=== PATIENT | female | born 1945 | race Caucasian/White ===

== ENCOUNTER 2022-10-22 07:23 | Outpatient (OUT) | payer MEDICARE, OTHER, SELFPAY ==
[2022-10-22 08:04] LABS: INR 2.42; Prothrombin Time 24.4 sec (9.0-11.6)
== END 2022-10-22 07:24 ==
LOC: LAB 07:31
PROVIDERS: PCP Family Medicine; Visit Provider Internal Medicine Cardiovascular Disease
DX: R00.2 Palpitations (principal); Z79.01 Long term (current) use of anticoagulants
CPT/HCPCS: 36415; 85610

== ENCOUNTER 2022-11-13 07:04 | Outpatient (OUT) | payer MEDICARE, OTHER, SELFPAY ==
[2022-11-13 07:34] LABS: Prothrombin Time 26.1 sec (9.0-11.6)
== END 2022-11-13 07:05 | disposition home or self-care (01) ==
LOC: LAB 07:07
PROVIDERS: PCP Family Medicine; Visit Provider Internal Medicine Cardiovascular Disease
DX: I48.20 Chronic atrial fibrillation, unspecified (principal)
CPT/HCPCS: 36415; 85610

== ENCOUNTER 2022-12-08 07:26 | Outpatient (OUT) | payer MEDICARE, OTHER, SELFPAY ==
[2022-12-08 09:08] LABS: INR 1.97; Prothrombin Time 20.1 sec (9.0-11.6)
== END 2022-12-08 07:27 | disposition home or self-care (01) ==
LOC: LAB 07:27
PROVIDERS: PCP Family Medicine; Visit Provider Internal Medicine Cardiovascular Disease
DX: I48.20 Chronic atrial fibrillation, unspecified (principal)
CPT/HCPCS: 36415; 85610

== ENCOUNTER 2023-01-06 07:16 | Outpatient (OUT) | payer MEDICARE, OTHER, SELFPAY ==
[2023-01-06 08:14] LABS: INR 2.31; Prothrombin Time 23.4 sec (9.0-11.6)
== END 2023-01-06 07:17 | disposition home or self-care (01) ==
LOC: LAB 07:18
PROVIDERS: PCP Family Medicine; Visit Provider Internal Medicine Cardiovascular Disease
DX: I48.20 Chronic atrial fibrillation, unspecified (principal)
CPT/HCPCS: 36415; 85610

== ENCOUNTER 2023-01-27 07:51 | Outpatient (OUT) | payer MEDICARE, OTHER, SELFPAY ==
[2023-01-27 08:33] LABS: INR 2.88; Prothrombin Time 28.8 sec (9.0-11.6)
== END 2023-01-27 07:52 | disposition home or self-care (01) ==
LOC: LAB 07:53
PROVIDERS: PCP Family Medicine
DX: I48.20 Chronic atrial fibrillation, unspecified (principal)
CPT/HCPCS: 36415; 85610

== ENCOUNTER 2023-02-25 12:09 | Outpatient (RCR) | payer MEDICARE, OTHER, SELFPAY | END 2023-03-10 17:32 | disposition home or self-care (01) | LOC: MM 12:09 | PROVIDERS: PCP Family Medicine; Visit Provider Internal Medicine | DX: Z51.81 Encounter for therapeutic drug level monitoring (principal); Z79.01 Long term (current) use of anticoagulants; I48.20 Chronic atrial fibrillation, unspecified | CPT/HCPCS: 85610; G0463 ==

== ENCOUNTER 2023-03-11 00:28 | Outpatient (RCR) | payer MEDICARE, OTHER, SELFPAY | END 2023-04-09 16:44 | disposition home or self-care (01) | LOC: MM 00:28 | PROVIDERS: PCP Family Medicine; Visit Provider Internal Medicine | DX: Z51.81 Encounter for therapeutic drug level monitoring (principal); Z79.01 Long term (current) use of anticoagulants; I48.20 Chronic atrial fibrillation, unspecified | CPT/HCPCS: 85610; G0463 ==

== ENCOUNTER 2023-04-10 09:30 | Outpatient (RCR) | payer MEDICARE, OTHER, SELFPAY | END 2023-05-08 15:11 | disposition home or self-care (01) | LOC: MM 09:30 | PROVIDERS: PCP Family Medicine; Visit Provider Internal Medicine | DX: Z51.81 Encounter for therapeutic drug level monitoring (principal); Z79.01 Long term (current) use of anticoagulants; I48.20 Chronic atrial fibrillation, unspecified | CPT/HCPCS: 85610; G0463 ==

== ENCOUNTER 2023-05-11 02:10 | Outpatient (RCR) | payer MEDICARE, OTHER, SELFPAY | END 2023-06-10 17:18 | disposition home or self-care (01) | LOC: MM 02:10 | PROVIDERS: PCP Family Medicine; Visit Provider Internal Medicine | DX: Z51.81 Encounter for therapeutic drug level monitoring (principal); Z79.01 Long term (current) use of anticoagulants; I48.20 Chronic atrial fibrillation, unspecified | CPT/HCPCS: 85610; G0463 ==

== ENCOUNTER 2023-06-11 01:58 | Outpatient (RCR) | payer MEDICARE, OTHER, SELFPAY | END 2023-07-09 17:34 | disposition home or self-care (01) | LOC: MM 01:58 | PROVIDERS: PCP Family Medicine; Visit Provider Internal Medicine | DX: Z51.81 Encounter for therapeutic drug level monitoring (principal); Z79.01 Long term (current) use of anticoagulants; I48.20 Chronic atrial fibrillation, unspecified | CPT/HCPCS: 85610; G0463 ==

== ENCOUNTER 2023-07-10 03:42 | Outpatient (RCR) | payer MEDICARE, OTHER, SELFPAY | END 2023-08-07 14:17 | disposition home or self-care (01) | LOC: MM 03:42 | PROVIDERS: PCP Family Medicine; Visit Provider Internal Medicine | DX: Z51.81 Encounter for therapeutic drug level monitoring (principal); Z79.01 Long term (current) use of anticoagulants; I48.20 Chronic atrial fibrillation, unspecified | CPT/HCPCS: 85610; G0463 ==

== ENCOUNTER 2023-08-10 03:25 | Outpatient (RCR) | payer MEDICARE, OTHER, SELFPAY | END 2023-09-08 18:15 | disposition home or self-care (01) | LOC: MM 03:25 | PROVIDERS: PCP Family Medicine; Visit Provider Internal Medicine | DX: Z51.81 Encounter for therapeutic drug level monitoring (principal); Z79.01 Long term (current) use of anticoagulants; I48.20 Chronic atrial fibrillation, unspecified | CPT/HCPCS: 85610; G0463 ==

== ENCOUNTER 2023-09-09 04:43 | Outpatient (RCR) | payer MEDICARE, OTHER, SELFPAY | END 2023-10-09 12:07 | disposition home or self-care (01) | LOC: MM 04:43 | PROVIDERS: PCP Family Medicine; Visit Provider Internal Medicine | DX: Z51.81 Encounter for therapeutic drug level monitoring (principal); Z79.01 Long term (current) use of anticoagulants; I48.20 Chronic atrial fibrillation, unspecified | CPT/HCPCS: 85610; G0463 ==

== ENCOUNTER 2023-10-12 03:36 | Outpatient (RCR) | payer MEDICARE, OTHER, SELFPAY | END 2023-11-06 11:12 | disposition home or self-care (01) | LOC: MM 03:36 | PROVIDERS: PCP Family Medicine; Visit Provider Internal Medicine | DX: Z51.81 Encounter for therapeutic drug level monitoring (principal); Z79.01 Long term (current) use of anticoagulants; I48.20 Chronic atrial fibrillation, unspecified | CPT/HCPCS: 85610; G0463 ==

== ENCOUNTER 2023-11-09 00:28 | Outpatient (RCR) | payer MEDICARE, OTHER, SELFPAY | END 2023-12-09 23:59 | disposition home or self-care (01) | LOC: MM 00:28 | PROVIDERS: PCP Family Medicine; Visit Provider Internal Medicine | DX: Z51.81 Encounter for therapeutic drug level monitoring (principal); Z79.01 Long term (current) use of anticoagulants; I48.20 Chronic atrial fibrillation, unspecified | CPT/HCPCS: 85610; G0463 ==

== ENCOUNTER 2023-12-24 12:31 | Outpatient (RCR) | payer MEDICARE, OTHER, SELFPAY | END 2024-01-08 10:07 | disposition home or self-care (01) | LOC: MM 12:31 | PROVIDERS: PCP Family Medicine; Visit Provider Internal Medicine | DX: Z51.81 Encounter for therapeutic drug level monitoring (principal); Z79.01 Long term (current) use of anticoagulants; I48.20 Chronic atrial fibrillation, unspecified | CPT/HCPCS: 85610; G0463 ==

== ENCOUNTER 2024-01-11 01:39 | Outpatient (RCR) | payer MEDICARE, OTHER, SELFPAY | END 2024-02-08 23:42 | disposition home or self-care (01) | LOC: MM 01:39 | PROVIDERS: PCP Family Medicine; Visit Provider Internal Medicine | DX: Z51.81 Encounter for therapeutic drug level monitoring (principal); Z79.01 Long term (current) use of anticoagulants; I48.20 Chronic atrial fibrillation, unspecified | CPT/HCPCS: 85610; G0463 ==

== ENCOUNTER 2024-02-09 02:40 | Outpatient (RCR) | payer MEDICARE, OTHER, SELFPAY | END 2024-03-10 23:40 | disposition home or self-care (01) | LOC: MM 02:40 | PROVIDERS: PCP Family Medicine; Visit Provider Internal Medicine | DX: Z51.81 Encounter for therapeutic drug level monitoring (principal); Z79.01 Long term (current) use of anticoagulants; I48.20 Chronic atrial fibrillation, unspecified | CPT/HCPCS: 85610; G0463 ==

== ENCOUNTER 2024-03-11 13:10 | Outpatient (RCR) | payer MEDICARE, OTHER, SELFPAY | END 2024-04-09 23:59 | disposition home or self-care (01) | LOC: MM 13:10 | PROVIDERS: PCP Family Medicine; Visit Provider Internal Medicine | DX: Z51.81 Encounter for therapeutic drug level monitoring (principal); Z79.01 Long term (current) use of anticoagulants; I48.20 Chronic atrial fibrillation, unspecified | CPT/HCPCS: 85610; G0463 ==

== ENCOUNTER 2024-04-11 05:52 | Outpatient (RCR) | payer MEDICARE, OTHER, SELFPAY | END 2024-05-10 09:16 | disposition home or self-care (01) | LOC: MM 05:52 | PROVIDERS: PCP Family Medicine; Visit Provider Internal Medicine | DX: Z51.81 Encounter for therapeutic drug level monitoring (principal); Z79.01 Long term (current) use of anticoagulants; I48.20 Chronic atrial fibrillation, unspecified | CPT/HCPCS: 85610; G0463 ==

== ENCOUNTER 2024-04-25 07:41 | Outpatient (OUT) | payer MEDICARE, OTHER, SELFPAY ==
--- OUTSIDE RECORDS SUMMARY | 2024-04-25 07:48 | XMS_ITS | CCD ---
Author Organization [facility] Care Team Providers Care Reference Data Expert Name Role Phone SUKHWINDERNKARSON P Attending Unavailable JOHNSON, FELIPE Primary Care Unavailable MCGUINN, KARSON P Attending Unavailable JOHNSON, FELIPE Primary Care Unavailable MCGUINN, KARSON P Attending Unavailable JOHNSON, FELIPE Primary Care Unavailable MCGUINN, KARSON P Attending Unavailable JOHNSON, FELIPE Primary Care Unavailable MCGUINN, KARSON P Attending Unavailable JOHNSON, FELIPE Primary Care Unavailable MCGUINN, KARSON P Attending Unavailable JOHNSON, FELIPE Primary Care Unavailable MCGUINN, KARSON P Attending Unavailable JOHNSON, FELIPE Primary Care Unavailable MCGUINN, KARSON P Attending Unavailable JOHNSON, FELIPE Primary Care Unavailable MCGUINN, KARSON P Attending Unavailable JOHNSON, FELIPE Primary Care Unavailable MCGUINN, KARSON P Attending Unavailable JOHNSON, FELIPE Primary Care Unavailable MCGUINN, KARSON P Attending Unavailable JOHNSON, FELIPE Primary Care Unavailable MCGUINN, KARSON P Attending Unavailable JOHNSON, FELIPE Primary Care Unavailable MCGUINN, KARSON P Attending Unavailable JOHNSON, FELIPE Primary Care Unavailable MCGUINN, KARSON P Attending Unavailable JOHNSON, FELIPE Primary Care Unavailable MCGUINN, KARSON P Attending Unavailable JOHNSON, FELIPE Primary Care Unavailable Yan, Felipe E Unavailable Unavailable Unavailable Karson Watts II Referring Unavailable GIOVANNIuinKarson flores II Attending Unavailable Yan, Dr. Felipe Jessica Primary Care Unav ailable Yan, Dr. Felipe Jessica Primary Care Unav ailable Karson Watts II Referring Unavailable Karson Watts II Attending Unavailable YOEL, DR LIZAMA Admitting Unavailable MCGUINBonifacio, DR LIZAMA Consulting Unavailable JOHNSON, DR FELIPE Myers Primary Care Unavailable MCGUINN, DR LIZAMA Attending Unavailable JOHNSON, DR FELIPE Myers Primary Care Unavailable MISC, DR GERMAIN Consulting Unavailable MISC, DR GERMAIN Attending Unavailable MISC, DR GERMAIN Admitting Unavailable JOHNSON, DR FELIPE Myers Primary Care Unavailable JOHNSON, DR FELIPE Myers Consulting Unavailable JOHNSON, DR FELIPE Myers Attending Unavailable JOHNSON, DR FELIPE Myers Admitting Unavailable MCGUINN, DR LIZAMA Admitting Unavailable MCGUINN, DR LIZAMA Consulting Unavailable JOHNSON, DR FELIPE Myers Primary Care Unavailable MCGUINN, DR LIZAMA Attending Unavailable MCGUINN, DR LIZAMA Consulting Unavailable JOHNSON, DR FELIPE Myers Primary Care Unavailable MISC, DR GERMAIN Admitting Unavailable MISC, DR GERMAIN Attending Unavailable MCGUINN, DR LIZAMA Consulting Unavailable MCGUINN, DR LIZAMA Admitting Unavailable MCGUINN, DR LIZAMA Attending Unavailable JOHNSON, DR FELIPE Myers Primary Care Unavailable MCGUINN, DR LIZAMA Admitting Unavailable JOHNSON, DR FELIPE Myers Primary Care Unavailable MCGUINN, DR LIZAMA Attending Unavailable MCGUINN, DR LIZAMA Consulting Unavailable JOHNSON, DR FELIPE Myers Referring Unavailable MCGUINN, DR LIZAMA Consulting Unavailable MCGUINN, DR LIZAMA Admitting Unavailable JOHNSON, DR FELIPE Myers Primary Care Unavailable MCGUINN, DR LIZAMA Attending Unavailable MISC, DR GERMAIN Admitting Unavailable MISC, DR GERMAIN Consulting Unavailable MISC, DR GERMAIN Attending Unavailable JOHNSON, DR FELIPE Myers Primary Care Unavailable MCGUINN, DR LIZAMA Consulting Unavailable MCGUINN, DR LIZAMA Admitting Unavailable MCGUINN, DR LIZAMA Attending Unavailable JOHNSON, DR FELIPE Myers Primary Care Unavailable MCGUINN, DR LIZAMA Admitting Unavailable MCGUINN, DR LIZAMA Consulting Unavailable JOHNSON, DR FELIPE Myers Primary Care Unavailable MCGUINN, DR LIZAMA Attending Unavailable MCGUINN, DR KARSON Pulido Unavailable JOHNSON, DR FELIPE Myers Primary Care Unavailable MCGUINN, DR LIZAMA Attending Unavailable MCGUINN, DR LIZAMA Admitting Unavailable MCGUINN, DR LIZAMA Consulting Unavailable JOHNSON, DR FELIPE Myers Primary Care Unavailable MCGUINN, DR LIZAMA Attending Unavailable MCGUINN, DR LIZAMA Admitting Unavailable MCGUINN, DR LIZAMA Consulting Unavailable MCGUINN, DR LIZAMA Attending Unavailable MCGUINN, DR LIZAMA Admitting Unavailable JOHNSON, DR FELIPE Myers Primary Care Unavailable HORACE PRADHAN Attending Unavailable HORACE PRADHAN Admitting Unavailable JOHNSON, DR FELIPE Myers Primary Care Unavailable HORACE PRADHAN Unavailable MCGUINBonifacio, DR LIZAMA Consulting Unavailable MCGUINN, DR LIZAMA Admitting Unavailable MCGUINN, DR LIZAMA Attending Unavailable JOHNSON, DR FELIPE Myers Primary Care Unavailable MCGUINN, DR LIZAMA Admitting Unavailable MCGUINN, DR LIZAMA Consulting Unavailable JOHNSON, DR FELIPE Myers Primary Care Unavailable DR KARSON WATTS Attending Unavailable Felipe Johnson MD Primary Care Provider [phone] Felipe Johnson MD Primary Care Provider KARSON WATTS Attending Unavailable FELIPE JOHNSON Primary Care Unavailable Felipe Johnson MD Primary Care Provider EVER SQUIRES Attending Unavailable EVER SQUIRES Referring Unavailable EVER SQUIRES Attending Unavailable CHI LEDEZMA Attending Unavailable INDRA ALEXANDER Attending Unavailable MILKA RICH Attending Unavailable LOUIS RICHISON Fabio Attending Unavailable SHARRI, MILKA S Attending Unavailable CHI LEDEZMA Attending Unavailable INDRA ALEXANDER Attending Unavailable IVY, INDRA Naseem Attending Unavailable CHI LEDEZMA Attending Unavailable DEEPAK ALEXANDERS Naseem Attending Unavailable SHARRI MILKA S Attending Unavailable INDRA ALEXANDER Attending Unavailable CHI LEDEZMA Attending Unavailable MILKA RICH Attending Unavailable Allergies Allergy Classification Reported Allergen(s) Allergy Type Date of Onset Reaction(s) Facility (20 sources) Flecainide; Translations: [Flecainide Acetate TABS] Drug Allergy 8 GI intolerance, Rash, Hives, Unknown [facility] (20 sources) Hydrocortisone; Translations: [Hydrocortisone TABS] Drug Allergy 3 Unknown [facility] Work Phone: (16 sources) Other Allergy to substance (finding) [facility] DO Work Phone: (2 sources) Flecainide; Translations: [FLECAINIDE] Drug Allergy 3 [facility] Repository (4 sources) Betamethasone Drug Allergy 8 GI intolerance [facility] (1 source) Hydrocortisone; Translations: [HYDROCORTISONE] Drug Allergy 3 [facility] 3 Repository Medications Current Medications Medication Drug Class(es) Dates Sig (Normalized) Sig (Original) betamethasone 0.5 mg/ml / clotrimazole 10 mg/ml topical cream (4 sources) Azole Antifungal, Corticosteroid Start: 05-18-19 24 clotrimazole-betamethas one (Lotrisone) cream Apply topically 2 (two) times a day 05/18/2023 Active chlorthalidone 25 mg oral tablet (20 sources) Thiazide-like Diuretic Start: 12-31-19 End: 09-28-19 take 1 tablet by mouth once daily chlorthalidone (Hygroton) 25 mg tablet Indications: Essential hypertension Take 1 tablet (25 mg) by mouth once daily. 90 tablet 3 09/28/2023 09/27/2024 Active cholecalciferol 0.05 mg oral capsule (1 source) Vitamin D take 1 capsule by mouth in the morning cholecalciferol (Vitamin D3) 50 mcg (2,000 unit) capsule Take 1 capsule (50 mcg) by mouth early in the morning.. Active cycloSPORINE 0.9 mg/ml ophthalmic solution (4 sources) Calcineurin Inhibitor Immunosuppressant Start: 03-02-20 take 1 drop(s) into the eye(s) in the morning cycloSPORINE, PF, (Cequa) 0.09 % solution Indications: Keratoconjunctivitis sicca of both eyes not specified as Sjogren's Administer 1 drop into affected eye(s) in the morning and 1 drop before bedtime. 60 each 7 03/02/2023 Active 24 hr dilTIAZem hydrochloride 300 mg extended release oral capsule (20 sources) Calcium Channel Nicole Start: 10-22-19 End: 09-28-19 take 1 capsule by mouth in the morning, then take 1 capsule by mouth every twenty-four hours dilTIAZem CD (Cardizem CD) 300 MG 24 hr capsule Take 300 mg by mouth in the morning. 10/21/2022 Active Start: 01-31-2022 take 1 capsule by [facility] once daily in the morning dilTIAZem HCl ER Coated Beads 300 MG Oral Capsule Extended Release 24 Hour TAKE 1 CAPSULE BY MOUTH EVERY DAY IN THE MORNING Quantity: 90 Refills: 3 Ordered: 29-Sep-2022 Karson Watts MD Start : 31-Jan-2022 Active DilTIAZem CD 300 MG CP24 TAKE 1 CAPSULE Daily Quantity: 0 Refills: 0 Ordered: 04-Jun-2021 DO Active preservative-free dorzolamide 20 mg/ml / timolol 5 mg/ml ophthalmic solution (12 sources) Carbonic Anhydrase Inhibitor, beta-Adrenergic Nicole Start: 01-08-2024 take 1 drop(s) into the eye(s) in the morning Dorzolamide HCl-Timolol Mal PF 2-0.5 % solution Indications: Primary open angle glaucoma (POAG) of both eyes, mild stage (CMS/HCC) Administer 1 drop into both eyes in the morning and 1 drop before bedtime. 180 each 4 01/08/2024 Active Start: 09-30-2022 Dorzolamide HC l-Timolol Mal PF 2-0.5 % solution INSTILL 1 DROP IN BOTH EYES TWICE A DAY 0 09/30/2022 Active Start: 03-28-2021 Dorzolamide HC l-Timolol Mal PF 2-0.5 % Ophthalmic Solution Quantity: 180 Refills: 0 Ordered: 28-Mar-2021 DO Start : 28-Mar-2021 Active take 1 drop(s) into the eye(s) in the morning dorzolamide-timolol, PF, (Cosopt) 2-0.5 % ophthalmic solution PLACE 1 DROP INTO AFFECTED EYE(S) IN THE MORNING AND 1 DROP BEFORE BEDTIME Active 0.8 ml enoxaparin sodium 100 mg/ml prefilled syringe (4 sources) Low Molecular Weight Heparin Enoxaparin Sodium (Lovenox) 80 MG/0.8ML solution prefilled syringe Inject 80 mg under the skin. Active erythromycin 0.005 mg/mg ophthalmic ointment (8 sources) Macrolide, Macrolide Antimicrobial Start: 06-18-2022 erythromycin (Romycin) 5 MG/GM ophthalmic ointment APPLY A SMALL AMOUNT INTO LEFT EYE EVERY THREE HOURS WHILE AWAKE 06/18/2022 Active Start: 07-04-2021 Erythromycin 5 MG/GM Ophthalmic Ointment APPLY 1 A SMALL AMOUNT INTO LEFT EYE AT BEDTIME Quantity: 4 Refills: 0 Ordered: 04-Jul-2021 DO Start : 04-Jul-2021 Complete Erythromycin 5 M G/GM Ophthalmic Ointment APPLY A SMALL AMOUNT OF OINTMENT TO AFFECTED EYE(S) 4 TIMES DAILY AND AT BEDTIME. Quantity: 0 Refills: 0 Ordered: 11-Aug-2022 DO Active estradiol 0.1 mg/ml vaginal cream (4 sources) Estrogen Start: 09-16-2022 estradiol (Est race) 0.1 MG/GM vaginal cream Insert 2 g into the vagina in the morning. 09/16/2022 Active lisinopril 10 mg oral tablet (20 sources) Angiotensin Converting Enzyme Inhibitor Start: 09-28-2023 take 1 tablet by mouth once daily lisinopril 10 mg tablet Indications: Essential hypertension Take 1 tablet (10 mg) by mouth once daily. 90 tablet 3 09/28/2023 Active Start: 10-20-2022 End: 09-28-2023 take 1 tablet by mouth in the morning lisinopril 10 MG tablet Take 10 mg by mouth in the morning. 10/20/2022 Active Start: 07-23-2021 take 1 tablet by vance th once daily Lisinopril 10 MG Oral Tablet Take 1 tablet daily Quantity: 90 Refills: 3 Ordered: 29-Sep-2022 Karson Watts MD Start : 23-Jul-2021 Active take 1 tablet by vance th once daily Lisinopril 10 MG Oral Tablet TAKE 1 TABLET DAILY. Quantity: 0 Refills: 0 Ordered: 04-Jun-2021 DO Active loteprednol etabonate 5 mg/ml ophthalmic suspension (7 sources) Start: 10-02-2022 take 1 drop(s) into the eye(s) three times daily loteprednol (Lotemax) 0.5 % ophthalmic suspension Indications: Keratoconjunctivitis sicca of both eyes not specified as Sjogren's INSTILL 1 DROP INTO LEFT EYE THREE TIMES A DAY 5 mL 3 08/20/2023 Active Start: 10-02-2022 loteprednol (L otemax) 0.5 % ophthalmic suspension Administer 1 drop into the left eye in the morning and 1 drop at noon and 1 drop in the evening and 1 drop before bedtime. 0 10/02/2022 Active Loteprednol Etab genesis 0.5 % Ophthalmic Gel USE DIRECTED. Quantity: 0 Refills: 0 Ordered: 11-Aug-2022 DO Active microencapsulated potassium chloride 20 meq extended release oral tablet (20 sources) Start: 08-20-2023 take 2 tablets by mouth once daily Klor-Con M20 20 mEq ER tablet Indications: Essential (primary) hypertension TAKE 2 TABLETS BY MOUTH EVERY DAY 180 tablet 3 08/20/2023 Active Start: 08-28-2022 take 2 tablets by mo uth in the morning KLOR-CON 20 MEQ ER tablet Take 40 mEq by mouth in the morning. 08/28/2022 Active Start: 11-29-2021 take 2 tablets by mo [facility] once daily Edilia M20 20 MEQ Oral Tablet Extended Release take 2 tablets by mouth every day Quantity: 180 Refills: 3 Ordered: 29-Sep-2022 Karson Rush DO Start : 29-Nov-2021 Active End: 09-28-2023 take 1 tablet by mouth twice daily potassium chloride CR 20 mEq ER tablet Take 1 tablet (20 mEq) by mouth 2 times a day. 09/28/2023 Discontinued (Med List Cleanup) [facility] Potassium Chloride ER 20 MEQ Oral Tablet Extended Release Take 1 tablet twice daily Quantity: 0 Refills: 0 Ordered: 04-Jun-2021 DO Active pravastatin sodium 40 mg oral tablet (20 sources) HMG-CoA Reductase Inhibitor Start: 09-28-2023 take 1 tablet by mouth once daily at bedtime pravastatin (Pravachol) 40 mg tablet Indications: Hyperlipidemia, unspecified Take 1 tablet (40 mg) by mouth once daily at bedtime. 90 tablet 3 09/28/2023 Active Start: 11-04-2021 End: 09-28-2023 take 1 tablet by mouth once daily at bedtime pravastatin (Pravachol) 40 mg tablet Indications: Hyperlipidemia, unspecified TAKE 1 TABLET BY MOUTH EVERYDAY AT BEDTIME 90 tablet 3 08/20/2023 09/28/2023 Discontinued (Reorder) prednisoLONE acetate 10 mg/ml ophthalmic suspension (5 sources) Corticosteroid Start: 04-14-2023 End: 06-15-2023 take 1 drop(s) into the eye(s) three times daily prednisoLONE acetate (Pred-Forte) 1 % ophthalmic suspension Indications: Rce (recurrent corneal erosion), left INSTILL 1 DROP IN LEFT EYE 3 TIMES DAILY 15 mL 5 06/15/2023 Active warfarin sodium 2.5 mg oral tablet (20 sources) Vitamin K Antagonist Start: 06-27-2021 End: 09-28-2023 take 0.5-1 tablets by mouth once daily warfarin (Coumadin) 2.5 mg tablet Indications: Chronic atrial fibrillation (Multi) TAKE 1/2 TO 1 TABLET BY MOUTH DAILY OR DIRECTED BY [facility] 90 tablet 1 08/20/2023 Active Completed/Discontinued Medications Medication Drug Class(es) Dates Sig (Normalized) Sig (Original) gentamicin 3 mg/ml ophthalmic solution (1 source) Start: 11-28-2021 take 2 drop(s) into the eye(s) every four hours Gentamicin Sulfate 0.3 % Ophthalmic Solution PLACE 2 DROPS INTO LEFT EYE EVERY 4 HOURS Quantity: 5 Refills: 0 Ordered: 28-Nov-2021 DO Start : 28-Nov-2021 Complete 24 hr metFORMIN hydrochloride 500 mg extended release oral tablet (1 source) Biguanide Start: 07-22-2021 take 1 tablet by mouth every twenty-four hours metFORMIN HCl ER 500 MG Oral Tablet Extended Release 24 Hour Quantity: 90 Refills: 0 Ordered: 22-Jul-2021 DO Start : 22-Jul-2021 Complete Vitamin D CAPS (16 sources) Vitamin D CAPS A s directed. Quantity: 0 Refills: 0 Ordered: 04-Jun-2021 DO Active Problems Active Problems Problem Classification Problem Date Documented Date Episodic/Chronic Cardiac dysrhythmias (20 sources) Chronic atrial fibrillation; Translations: [Atrial fibrillation] Onset: 6 Chronic Diabetes mellitus without complication (5 sources) Type 2 diabetes mellitus without complications; Translations: [Type 2 diabetes mellitus without complication] Onset: 0 05-18-2023 Chronic Disorders of lipid metabolism (20 sources) Hyperlipidemia; Translations: [Other and unspecified hyperlipidemia] Onset: 8 05-18-2023 Chronic Essential hypertension (20 sources) Essential hypertension; Translations: [Unspecified essential hypertension] Onset: 8 Chronic Glaucoma (12 sources) Bilateral primary open angle glaucoma; Translations: [Primary open-angle glaucoma, bilateral, stage unspecified] Onset: 8 Resolved: 4 05-18-2023 Chronic Inflammation; infection of eye (except that caused by tuberculosis or sexually transmitteddisease) (4 sources) Keratoconjunctivitis sicca; Translations: [Keratoconjunctivitis sicca, not specified as Sjogren's, bilateral] Onset: 3 11-12-2022 Chronic Menopausal disorders (4 sources) Postmenopausal bleeding; Translations: [Postmenopausal bleeding] Onset: 4 05-18-2023 Chronic Other aftercare (16 sources) Anticoagulant effect; Translations: [Long-term (current) use of anticoagulants] Episodic Other aftercare (16 sources) Drug therapy finding; Translations: [Long-term (current) use of other medications] Episodic Other ear and sense organ disorders (2 sources) Mixed conductive AND sensorineural hearing loss; Translations: [Mixed conductive and sensorineural hearing loss, unilateral, left ear with restricted hearing on the contralateral side] 02-29-2024 Chronic Other nutritional; endocrine; and metabolic disorders (9 sources) Obesity; Translations: [Obesity, unspecified] Chronic Other nutritional; endocrine; and metabolic disorders (7 sources) Overweight in adulthood with body mass index of 25 or more but less than 30; Translations: [Overweight] Episodic Unclassified (3 sources) [facility] (current) use of anticoagulants; Translations: [[facility]I (current) use of anticoagulants] Onset: 9 Unclassified (3 sources) Other senior living (current) drug therapy; Translations: [Other oil heaterman (current) drug therapy] Onset: 8 Unclassified (6 sources) Chronic atrial fibrillation, unspecified; Translations: [CHRONIC ATRIAL FIBRILLATION UNSPEC] Onset: 3 Past or Other Problems Problem Classification Problem Date Documented Date Episodic/Chronic Cardiac dysrhythmias (20 sources) Palpitations; Translations: [Palpitations] Onset: 02-23-2023 05-18-2023 Episodic Inflammation; infection of eye (except that caused by tuberculosis or sexually transmitteddisease) (8 sources) Unspecified conjunctivitis; 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] Onset: 11-28-2021 Episodic Other aftercare (4 sources) Long-term current use of anticoagulant; Translations: [FCI (current) use of anticoagulants] Onset: 07-06-2018 05-18-2023 Episodic Other aftercare (4 sources) Long-term current use of drug therapy; Translations: [Other senior living (current) drug therapy] Onset: 12-09-2017 05-18-2023 Episodic Other diseases of veins and lymphatics (4 sources) Peripheral venous insufficiency; Translations: [Venous insufficiency (chronic) (peripheral)] Onset: 05-18-2023 05-18-2023 Episodic Other eye disorders (5 sources) 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; Translations: [Recurrent erosion of cornea, left eye] Onset: 11-12-2022 06-15-2023 Episodic Other screening for suspected conditions (not mental disorders or infectious disease) (4 sources) Patient encounter status; Translations: [Encounter for screening mammogram for malignant neoplasm of breast] Onset: 01-13-2018 05-18-2023 Episodic Residual codes; unclassified (4 sources) Family history of malignant neoplasm of liver; Translations: [Family history of malignant neoplasm of digestive organs] Onset: 01-21-2018 05-18-2023 Episodic Residual codes; unclassified (4 sources) Past history of procedure; Translations: [Other specified postprocedural states] Onset: 09-26-2015 05-18-2023 Episodic Unclassified (16 sources) Never smoked tobacco; Translations: [Never a smoker] Unclassified (1 source) Onset: 09-28-2023 09-28-2023 Results Test Name Value Interpretation Reference Range Facility MR BRAIN W AND WO CONTRAST ( IACS)on 05-26-2023 MR BRAIN W AND WO CONTRAST (IACS) EXAM: MR BRAIN W AND WO CONTRAST (IACS) History: mixed hearing loss Technique: Multiplanar multisequence MRI of the brain was performed without and with contrast including thin slice pre and postcontrast images through the internal auditory canals. Comparison: None available Findings: Areas of hyperintense T2/FLAIR signal within the bilateral supratentorial white matter an suzy are nonspecific but are most likely due to chronic small vessel ischemic changes in a patient of this age. Bilateral dilated perivascular spaces. Prominence of the sulci and ventricles compatible with mild generalized parenchymal volume loss. No acute hemorrhage, enhancing mass or pathologic enhancement, mass effect, midline shift, or abnormal extra-axial fluid collection the posterior fossa is within normal limits. Cranial nerves VII and VIII are normal in course and contour. No enhancing mass is present in the cerebellopontine angles or internal auditory canals. There is normal fluid signal of the inner ear structures. There is no diffusion restriction. No susceptibility artifact is identified on the gradient echo sequence. The major intracranial vascular flow voids are maintained. Cranial nerves 7/8 complexes appear grossly unremarkable. The visualized paranasal sinuses and bilateral mastoid air cells are clear. IMPRESSION: Normal signal and morphology of cranial nerve VII/VIII complexes. No cerebellopontine angle or internal auditory canal mass. Generalized parenchymal volume loss and nonspecific white matter findings most compatible with chronic small vessel ischemic changes in a patient of this age. ELECTRONICALLY SIGNED BY: Navin Quintero, DO Normal Not Available Comment on above: Order Comment: Attn : left Laboratory - Coagulationon 0 10-07-2022 INR Coag (Bld) [Relative time] 4.26 {INR} [facility] 250 DO Work Phone: PROTIMEon 10-07-2022 INR Coag (PPP) [Relative time] 4.26 {INR} Critically high [facility] Comment on above: Performed By: #### P T #### [facility] [address] [address] [address] Marilee Olmos INR GUIDELINES SEE BELOW Normal [facility] Comment on above: Result Comment: SARIKA RED INR: 2.0 - 3.0 CONDITIONS NOT LISTED BELOW 2.5 - 3.5 FOR PROSTHETIC HEART VALVE REPLACEMENT 2.5 - 3.5 RECURRENT THROMBOSIS Performed By: #### P T #### [facility] [address] [address] [address] Marilee Olmos PT Coag (PPP) [Time] 41.6 s Critically high 9.0-11.6 [facility] Comment on above: Performed By: #### P T #### [facility] [address] [address] [address] Marilee Olmos Tobacco Screening.on 023 Adult depression screening assessment No [facility] 250 DO Work Phone: Fall risk assessment a) [facility] the [facility] Work Phone: Tobacco use status [facility] b) No [facility] DO Work Phone: Laboratory - Coagulationon 0 09-11-2022 INR Coag (Bld) [Relative time] 2.94 {INR} [facility] Work Phone: PROTIMEon 09-11-2022 INR Coag (PPP) [Relative time] 2.94 {INR} Normal [facility] Comment on above: Performed By: #### P T #### [facility] [address] [place] [address] Dr. Marilee Olmos INR GUIDELINES SEE BELOW Normal [facility] Comment on above: Result Comment: SARIKA RED INR: 2.0 - 3.0 CONDITIONS NOT LISTED BELOW 2.5 - 3.5 FOR PROSTHETIC HEART VALVE REPLACEMENT 2.5 - 3.5 RECURRENT THROMBOSIS Performed By: #### P T #### [facility] [address] [place] [address] Dr. Marilee Olmos PT Coag (PPP) [Time] 29.3 s Critically high 9.0-11.6 [facility] Comment on above: Performed By: #### P T #### [facility] [address] [place] [address] Dr. Marilee Olmos PROTIMEiris 08-27-2022 INR Coag (PPP) [Relative time] 4.17 {INR} Critically high [facility] Comment on above: Performed By: #### P T #### [facility] [address] [place] [address] Dr. Marilee Olmos INR GUIDELINES SEE BELOW Normal [facility] Comment on above: Result Comment: SARIKA RED INR: 2.0 - 3.0 CONDITIONS NOT LISTED BELOW 2.5 - 3.5 FOR PROSTHETIC HEART VALVE REPLACEMENT 2.5 - 3.5 RECURRENT THROMBOSIS Performed By: #### P T #### [facility] [address] [place] [address] Dr. Marilee Olmos PT Coag (PPP) [Time] 40.8 s Critically high 9.0-11.6 [facility] Comment on above: Performed By: #### P T #### [facility] [address] [place] [address] Dr. Marilee Olmos PROTIMEon 08-14-2022 INR Coag (PPP) [Relative time] 2.46 {INR} Normal [facility] Comment on above: Performed By: #### P T #### [facility] [address] [place] [address] Dr. Marilee Olmos INR GUIDELINES SEE BELOW Normal [facility] Comment on above: Result Comment: SARIKA RED INR: 2.0 - 3.0 CONDITIONS NOT LISTED BELOW 2.5 - 3.5 FOR PROSTHETIC HEART VALVE REPLACEMENT 2.5 - 3.5 RECURRENT THROMBOSIS Performed By: #### P T #### [facility] [address] [place] [address] Dr. Marilee Olmos PT Coag (PPP) [Time] 24.8 s Critically high 9.0-11.6 [facility] Comment on above: Performed By: #### P T #### [facility] [address] [place] [address] Dr. Marilee Olmos PROTIMEon 08-11-2022 INR Coag (PPP) [Relative time] 4.68 {INR} Critically high [facility] Comment on above: Performed By: #### P T #### [facility] [address] [place] [address] Dr. Marilee Olmos INR GUIDELINES SEE BELOW Normal [facility] Comment on above: Result Comment: SARIKA RED INR: 2.0 - 3.0 CONDITIONS NOT LISTED BELOW 2.5 - 3.5 FOR PROSTHETIC HEART VALVE REPLACEMENT 2.5 - 3.5 RECURRENT THROMBOSIS Performed By: #### P T #### [facility] [address] [place] [address] Dr. Marilee Olmos PT Coag (PPP) [Time] 45.5 s Critically high 9.0-11.6 [facility] Comment on above: Performed By: #### P T #### [facility] [address] [place] [address] Dr. Marilee Olmos PROTIMEon 07-30-2022 INR Coag (PPP) [Relative time] 4.08 {INR} Normal [facility] Comment on above: Performed By: #### P T #### [facility] [address] [place] [address] Dr. Marilee Olmos INR GUIDELINES SEE BELOW Normal [facility] Comment on above: Result Comment: SARIKA RED INR: 2.0 - 3.0 CONDITIONS NOT LISTED BELOW 2.5 - 3.5 FOR PROSTHETIC HEART VALVE REPLACEMENT 2.5 - 3.5 RECURRENT THROMBOSIS Performed By: #### P T #### [facility] [address] [place] [address] Dr. Marilee Olmos PT Coag (PPP) [Time] 39.9 s Critically high 9.0-11.6 [facility] Comment on above: Performed By: #### P T #### [facility] [address] [place] [address] Dr. Marilee Olmos Laboratory - Coagulationon 0 07-08-2022 INR Coag (Bld) [Relative time] 3.22 {INR} -[facility] 250 DO Work Phone: PROTIMEon 07-08-2022 INR Coag (PPP) [Relative time] 3.33 {INR} Normal [facility] Comment on above: Performed By: #### P T #### [facility] [address] [place] [address] Dr. Marilee Olmos INR GUIDELINES SEE BELOW Normal [facility] Comment on above: Result Comment: SARIKA RED INR: 2.0 - 3.0 CONDITIONS NOT LISTED BELOW 2.5 - 3.5 FOR PROSTHETIC HEART VALVE REPLACEMENT 2.5 - 3.5 RECURRENT THROMBOSIS Performed By: #### P T #### [facility] [address] [place] [address] Dr. Marilee Olmos PT Coag (PPP) [Time] 33.0 s Critically high 9.0-11.6 [facility] Comment on above: Performed By: #### P T #### [facility] [address] [place] [address] Dr. Marilee Olmos PROTIMEon 06-18-2022 INR Coag (PPP) [Relative time] 3.22 {INR} Normal [facility] Comment on above: Performed By: #### P T #### [facility] [address] [place] [address] Dr. Marilee Olmos INR GUIDELINES SEE BELOW Normal [facility] Comment on above: Result Comment: SARIKA RED INR: 2.0 - 3.0 CONDITIONS NOT LISTED BELOW 2.5 - 3.5 FOR PROSTHETIC HEART VALVE REPLACEMENT 2.5 - 3.5 RECURRENT THROMBOSIS Performed By: #### P T #### [facility] [address] [place] [address] Dr. Marilee Olmos PT Coag (PPP) [Time] 31.9 s Critically high 9.0-11.6 [facility] Comment on above: Performed By: #### P T #### [facility] [address] [place] [address] Dr. Marilee Olmos PROTIMEon 06-09-2022 INR Coag (PPP) [Relative time] 3.40 {INR} Normal [facility] Comment on above: Performed By: #### P T #### [facility] [address] [place] [address] Dr. Marilee Olmos INR GUIDELINES SEE BELOW Normal [facility] Comment on above: Result Comment: SARIKA RED INR: 2.0 - 3.0 CONDITIONS NOT LISTED BELOW 2.5 - 3.5 FOR PROSTHETIC HEART VALVE REPLACEMENT 2.5 - 3.5 RECURRENT THROMBOSIS Performed By: #### P T #### [facility] [address] [place] [address] Dr. Marilee Olmos PT Coag (PPP) [Time] 33.6 s Critically high 9.0-11.6 [facility] Comment on above: Performed By: #### P T #### [facility] [address] [place] [address] Dr. Marilee Olmos PROTIMEon 05-19-2022 INR Coag (PPP) [Relative time] 3.00 {INR} Normal [facility] Comment on above: Performed By: #### P T #### [facility] [address] [place] [address] Dr. Marilee Olmos INR GUIDELINES SEE BELOW Normal [facility] Comment on above: Result Comment: SARIKA RED INR: 2.0 - 3.0 CONDITIONS NOT LISTED BELOW 2.5 - 3.5 FOR PROSTHETIC HEART VALVE REPLACEMENT 2.5 - 3.5 RECURRENT THROMBOSIS Performed By: #### P T #### [facility] [address] [place] [address] Dr. Marilee Olmos PT Coag (PPP) [Time] 30.2 s Critically high 9.0-11.6 [facility] Comment on above: Performed By: #### P T #### [facility] [address] [place] [address] Dr. Marilee Olmos PROTIMEon 04-28-2022 INR Coag (PPP) [Relative time] 3.12 {INR} Normal [facility] Comment on above: Performed By: #### P T #### [facility] [address] [place] [address] Dr. Marilee Olmos INR GUIDELINES SEE BELOW Normal [facility] Comment on above: Result Comment: SARIKA RED INR: 2.0 - 3.0 CONDITIONS NOT LISTED BELOW 2.5 - 3.5 FOR PROSTHETIC HEART VALVE REPLACEMENT 2.5 - 3.5 RECURRENT THROMBOSIS Performed By: #### P T #### [facility] [address] [place] [address] Dr. Marilee Olmos PT Coag (PPP) [Time] 31.3 s Critically high 9.0-11.6 [facility] Comment on above: Performed By: #### P T #### [facility] [address] [place] [address] Dr. Marilee Olmos PROTIMEon 03-26-2022 INR Coag (PPP) [Relative time] 2.93 {INR} Normal [facility] Comment on above: Performed By: #### P T #### [facility] [address] [place] [address] Dr. Marilee Olmos INR GUIDELINES SEE BELOW Normal [facility] Comment on above: Result Comment: SARIKA RED INR: 2.0 - 3.0 CONDITIONS NOT LISTED BELOW 2.5 - 3.5 FOR PROSTHETIC HEART VALVE REPLACEMENT 2.5 - 3.5 RECURRENT THROMBOSIS Performed By: #### P T #### [facility] [address] [place] [address] Dr. Marilee Olmos PT Coag (PPP) [Time] 29.5 s Critically high 9.0-11.6 [facility] Comment on above: Performed By: #### P T #### [facility] [address] [place] [address] Dr. Marilee Olmos CBC AUTO DIFFon 03-17-2022 BASO # 0.1 103/ul Normal 0.0-0.1 [facility] Comment on above: Performed By: #### P T #### [facility] [address] [address] [address] Marilee Olmos Basophils/100 WBC (Bld) 1.5 % Normal 0.2-2.0 [facility] Comment on above: Performed By: #### P T #### [facility] [address] [place] [address] Dr. Marilee Olmos EO # 0.2 103/ul Normal 0.0-0.7 [facility] Comment on above: Performed By: #### P T #### [facility] [address] [place] [address] Dr. Marilee Olmos Eosinophils/100 WBC (Bld) 2.9 % Normal 0.9-7.0 [facility] Comment on above: Performed By: #### P T #### [facility] [address] [place] [address] Dr. Marilee Olmos Erythrocyte distribution width (RBC) [Ratio] 13.2 % Normal 11.0-15.0 [facility] Comment on above: Performed By: #### P T #### [facility] [address] [place] [address] Dr. Marilee Olmos Hematocrit (Bld) [Volume fraction] 40.0 % Normal 36.0-48.0 [facility] Comment on above: Performed By: #### P T #### [facility] [address] [place] [address] Dr. Marilee Olmos Hemoglobin (Bld) [Mass/Vol] 13.2 g/dL Normal 12.0-16.0 [facility] Comment on above: Performed By: #### P T #### [facility] [address] [place] [address] Dr. Marilee Olmos IG # 0.04 10e3/ul Critically high 0.00-0.03 [facility] Comment on above: Performed By: #### P T #### [facility] [address] [place] [address] Dr. Marilee Olmos IG % 0.5 % Normal 0.0-0.5 [facility] Comment on above: Performed By: #### P T #### [facility] [address] [address] [address] Marilee Olmos LYMPH # 1.1 103/ul Critically low 1.2-3.8 [facility] Comment on above: Performed By: #### P T #### [facility] [address] [place] [address] Dr. Marilee Olmos Lymphocytes/100 WBC (Bld) 13.7 % Critically low 20.5-60.0 [facility] Comment on above: Performed By: #### P T #### [facility] [address] [place] [address] Dr. Marilee Olmos MANUAL DIFF REQ NO Normal [facility] Comment on above: Performed By: #### P T #### [facility] [address] [place] [address] Dr. Marilee Olmos MCH (RBC) [Entitic mass] 30.5 pg Normal 26.7-34.0 [facility] Comment on above: Performed By: #### P T #### [facility] [address] [place] [address] Dr. Marilee Olmos MCHC (RBC) [Mass/Vol] 33.0 g/dL Normal 29.9-35.2 [facility] Comment on above: Performed By: #### P T #### [facility] [address] [place] [address] Dr. Marilee Olmos MCV (RBC) [Entitic vol] 92.4 fL Normal 81.0-99.0 [facility] Comment on above: Performed By: #### P T #### [facility] [address] [place] [address] Dr. Marilee Olmos MONO # 0.8 103/ul Normal 0.3-0.8 [facility] Comment on above: Performed By: #### P T #### [facility] [address] [place] [address] Dr. Marilee Olmos Monocytes/100 WBC (Bld) 10.2 % Normal 1.7-12.0 [facility] Comment on above: Performed By: #### P T #### [facility] [address] [place] [address] Dr. Marilee Olmos NEUT # 5.7 103/ul Normal 1.4-6.5 [facility] Comment on above: Performed By: #### P T #### [facility] [address] [place] [address] Dr. Marilee Olmos Neutrophils/100 WBC (Bld) 71.2 % Normal 43.0-75.0 [facility] Comment on above: Performed By: #### P T #### [facility] [address] [place] [address] Dr. Marilee Olmos Platelet mean volume (Bld) [Entitic vol] 10.5 fL Normal 9.5-13.5 [facility] Comment on above: Performed By: #### P T #### [facility] [address] [place] [address] Dr. Marilee Olmos PLT 384 103/ul Normal 150-450 [facility] Comment on above: Performed By: #### P T #### [facility] [address] [place] [address] Dr. Marilee Olmos RBC 4.33 106/ul Normal 4.20-5.40 [facility] Comment on above: Performed By: #### P T #### [facility] [address] [place] [address] Dr. Marilee Olmos WBC 8.0 103/ul Normal 4.0-11.0 [facility] Comment on above: Performed By: #### P T #### [facility] [address] [place] [address] Dr. Marilee Olmos GLYCOHEMOGLOBIN A1Con 2021 ADA RECOMMENDATION SEE BELOW Normal [facility] Comment on above: Result Comment: ADA RECOMMENDED LIMIT 4.0 - 6.0 ADA THERAPEUTIC TARGET < 7.0 ACTION SUGGESTED > 7.0 Performed By: #### A 1C #### [facility] [address] [place] [address] Dr. Marilee Olmos Glucose [Mass/Vol] 171 mg/dL Normal [facility] Comment on above: Performed By: #### A 1C #### [facility] [address] [address] [address] Marilee Olmos HbA1c (Bld) [Mass fraction] 7.6 % Critically high 4.5-6.2 [facility] Comment on above: Performed By: #### A 1C #### [facility] [address] [address] [address] Marilee Olmos LIPID PROFILEon 03-17-2022 CHOL-HDL RATIO NORM SEE BELOW Normal [facility] Comment on above: Result Comment: 3.3 - 4.4 LOW RISK 4.4 - 7.1 AVERAGE RISK 7.1 - 11.0 MODERATE RISK >11.0 HIGH RISK Performed By: #### P T #### [facility] [address] [address] [address] Marilee Olmos Cholesterol [Mass/Vol] 170 mg/dL Normal <=200 [facility] Comment on above: Performed By: #### P T #### [facility] [address] [address] [address] Marilee Olmos Cholesterol in HDL [Mass/Vol] 52 mg/dL Normal 40-60 [facility] Comment on above: Performed By: #### P T #### [facility] [address] [address] [address] Marilee Olmos Cholesterol in LDL [Mass/Vol] 94.6 mg/dL Normal [facility] Comment on above: Performed By: #### P T #### [facility] [address] [address] [address] Marilee Olmos Cholesterol.total/Ch olesterol in HDL [Mass ratio] 3.3 {ratio} Normal [facility] Comment on above: Performed By: #### P T #### [facility] [address] [address] [address] Marilee Olmos HDL NORMAL > or = 60 mg/dl - LO W CARDIOVASCULAR RISK <40 mg/dl - HIGH CARDIOVASCULAR RISK Normal [facility] Comment on above: Performed By: #### P T #### [facility] [address] [address] [address] Marilee Olmos LDL CALC NORMAL SEE BELOW Normal [facility] Comment on above: Result Comment: <100 mg/dl OPTIMAL 100 - 129 mg/dl NEAR OR ABOVE OPTIMAL 130 - 159 mg/dl BORDERLINE HIGH 160 - 189 mg/dl HIGH >190 mg/dl VERY HIGH Performed By: #### P T #### [facility] [address] [place] [address] Dr. Marilee Olmos Triglyceride [Mass/Vol] 117 mg/dL Normal <=150 [facility] Comment on above: Performed By: #### P T #### [facility] [address] [place] [address] Dr. Marilee Olmos VLDL CALC 23.4 mg/dL Normal [facility] Comment on above: Performed By: #### P T #### [facility] [address] [place] [address] Dr. Marilee Olmos MICROALBUMIN, PREMIER URon 11-0 mALB 4.6 mg/L Normal <=30.0 [facility] Comment on above: Performed By: #### M ALBR #### [facility] [address] [place] [address] Dr. Marilee Olmos PROF 14(COMP METB)on 022 Albumin [Mass/Vol] 4.0 g/dL Normal 3.4-5.0 [facility] Comment on above: Performed By: #### P T #### [facility] [address] [place] [address] Dr. Marilee Olmos Albumin/Globulin [Mass ratio] 1.1 {ratio} Normal [facility] Comment on above: Performed By: #### P T #### [facility] [address] [place] [address] Dr. Marilee Olmos ALP [Catalytic activity/Vol] 81 U/L Normal 46-116 [facility] Comment on above: Performed By: #### P T #### [facility] [address] [place] [address] Dr. Marilee Olmos ALT [Catalytic activity/Vol] 16 U/L Normal 14-59 [facility] Comment on above: Performed By: #### P T #### [facility] [address] [place] [address] Dr. Marilee Olmos Anion gap [Moles/Vol] 10.2 mmol/L Normal [facility] Comment on above: Performed By: #### P T #### [facility] [address] [place] [address] Dr. Marilee Olmos AST [Catalytic activity/Vol] 13 U/L Critically low 15-37 [facility] Comment on above: Performed By: #### P T #### [facility] [address] [address] [address] Marilee Olmos Bilirubin [Mass/Vol] 0.5 mg/dL Normal 0.2-1.0 [facility] Comment on above: Performed By: #### P T #### [facility] [address] [place] [address] Dr. Marilee Olmos Calcium [Mass/Vol] 9.5 mg/dL Normal 8.5-10.1 [facility] Comment on above: Performed By: #### P T #### [facility] [address] [place] [address] Dr. Marilee Olmos Chloride [Moles/Vol] 98 mmol/L Normal 98-107 [facility] Comment on above: Performed By: #### P T #### [facility] [address] [place] [address] Dr. Marilee Olmos CO2 [Moles/Vol] 29.7 mmol/L Normal 21.0-32.0 [facility] Comment on above: Performed By: #### P T #### [facility] [address] [address] [address] Marilee Olmos Creatinine [Mass/Vol] 0.97 mg/dL Normal 0.55-1.02 [facility] Comment on above: Performed By: #### P T #### [facility] [address] [place] [address] Dr. Marilee Olmos EGFR-AF WALLISIAN >60 Normal >=60 [facility] Comment on above: Performed By: #### P T #### [facility] [address] [address] [address] Marilee Olmos EGFR-NON AF WALLISIAN 56 mL/min/1.73m2 Critically low >=60 [facility] Comment on above: Performed By: #### P T #### [facility] [address] [address] [address] Marilee Olmos Globulin (S) [Mass/Vol] 3.8 g/dL Normal [facility] Comment on above: Performed By: #### P T #### [facility] [address] [address] [address] Marilee Olmos Glucose [Mass/Vol] 151 mg/dL Critically high 74-106 [facility] Comment on above: Performed By: #### P T #### [facility] [address] [address] [address] Marilee Olmos Potassium [Moles/Vol] 3.9 mmol/L Normal 3.5-5.1 [facility] Comment on above: Performed By: #### P T #### [facility] [address] [place] [address] Dr. Marilee Olmos Protein [Mass/Vol] 7.8 g/dL Normal 6.4-8.2 [facility] Comment on above: Performed By: #### P T #### [facility] [address] [place] [address] Dr. Marilee Olmos Sodium [Moles/Vol] 134 mmol/L Critically low 136-145 [facility] Comment on above: Performed By: #### P T #### [facility] [address] [place] [address] Dr. Marilee Olmos Urea nitrogen [Mass/Vol] 21.0 mg/dL Critically high 7.0-18.0 [facility] Comment on above: Performed By: #### P T #### [facility] [address] [address] [address] Marilee Olmos Urea nitrogen/Creatinine [Mass ratio] 21.6 mg/mg Normal [facility] Comment on above: Performed By: #### P T #### [facility] [address] [place] [address] Dr. Marilee Olmos Laboratory - Coagulationon INR Coag (Bld) [Relative time] 2.60 {INR} [facility] DO Work Phone: PROTIMEon 02-26-2022 INR Coag (PPP) [Relative time] 2.60 {INR} Normal [facility] Comment on above: Performed By: #### P T #### [facility] [id number] Marilee Olmos INR GUIDELINES SEE BELOW Normal [facility] Comment on above: Result Comment: SARIKA RED INR: 2.0 - 3.0 CONDITIONS NOT LISTED BELOW 2.5 - 3.5 FOR PROSTHETIC HEART VALVE REPLACEMENT 2.5 - 3.5 RECURRENT THROMBOSIS Performed By: #### P T #### [facility] [id number] Marilee Olmos PT Coag (PPP) [Time] 26.4 s Critically high 9.0-11.6 [facility] Comment on above: Performed By: #### P T #### [facility] [address] [address] [address] Marilee Olmos Office Visit (Cardiology)on 02-12-2022 Follow-up visit Diagnoses/Problems Assessed Anticoagulated on warfarin (V58.61) (Z79.01) Chronic atrial fibrillation (427.31) (I48.20) Essential hypertension (401.9) (I10) Hyperlipidemia (272.4) (E78.5) Never a smoker Overweight with body mass index (BMI) of 29 to 29.9 in adult (278.02,V85.25) (E66.3,Z68.29) Orders Essential hypertension Renew: Lisinopril 10 MG Oral Tablet; TAKE 1 TABLET Daily Hyperlipidemia Renew: Pravastatin Sodium 40 MG Oral Tablet; TAKE 1 TABLET BY MOUTH EVERYDAY AT BEDTIME Overweight with body mass index (BMI) of 29 to 29.9 in adult Healthy Weight Tips; Status:Complete - Retrospective Authorization; Done: 12Feb2022 Some eating tips that can help you lose weight.; Status:Complete - Retrospective Authorization; Done: 12Feb2022 SocHx: Never a smoker Tobacco Use Screening; Status:Complete; Done: 12Feb2022 Patient Instructions Please bring all medicines, vitamins, and herbal supplements with you when you come to the office. Prescriptions will not be filled unless you are compliant with your follow up appointments or have a follow up appointment scheduled as per instruction of your physician. Refills should be requested at the time of your visit. Follow up in 9 months Chief Complaint LYRIC JUAREZ is being seen for a 6 month follow-up of. History of Present Illness Patient returns for follow-up of problems as noted. She doing well. She is active and denies angina CHF or arrhythmia symptomatology. Auscultation demonstrates satisfactory rate control. She is tolerating antithrombotic therapy well and this was discussed in detail. Her lipids also appear to be adequately controlled. The only opportunity for improvement would be probable weight loss and we did discuss the merits of diet exercise and weight loss. Surgical History Problems History of Cholecystectomy History of Colonoscopy [id number] Dr Sarthak Shi History of Eye surgery Past Medical History Problems History of High risk medication use (V58.69) (Z79.899) Current Meds Medication NameInstruction Chlorthalidone 25 MG Oral TabletTAKE 1 TABLET BY MOUTH EVERY DAY dilTIAZem HCl ER Coated Beads 300 MG Oral Capsule Extended Release 24 HourTAKE 1 CAPSULE BY MOUTH EVERY DAY IN THE MORNING Dorzolamide HCl-Timolol Mal PF 2-0.5 % Ophthalmic Solution Klor-Con M20 20 MEQ Oral Tablet Extended Releasetake 2 tablets by mouth every day Lisinopril 10 MG Oral TabletTAKE 1 TABLET Daily Potassium Chloride ER 20 MEQ Oral Tablet Extended ReleaseTake 1 tablet twice daily Pravastatin Sodium 40 MG Oral TabletTAKE 1 TABLET BY MOUTH EVERYDAY AT BEDTIME Vitamin D CAPSAs directed. Warfarin Sodium 2.5 MG Oral TabletTAKE 1/2 TO 1 TABLET BY MOUTH DAILY OR DIRECTED BY [facility] Patient did not bring medication list or bottles. Updated verbally with patient Allergies Medication Flecainide Acetate TABS Recorded By: Trinity Hurtado; 06/04/2021 9:54:43 AM Hydrocortisone TABS Allergy; Recorded By: Mali Stein; 05/06/2021 2:47:39 PM NonMedication Other Allergy; Recorded By: Mali Stein; 05/06/2021 2:47:39 PM STEROIDS: pressure in eyes Social History Problems Never a smoker No alcohol use No caffeine use No illicit drug use Review of Systems Constitutional: not feeling tired. Eyes: no eyesight problems. ENT: no hearing loss and no nosebleeds. Cardiovascular: no intermittent leg claudication and as noted in HPI. Respiratory: no chronic cough and no shortness of breath. Gastrointestinal: no change in bowel habits and no blood in stools. Genitourinary: no urinary frequency. Skin: no skin rashes. Neurological: no seizures and no frequent falls. Psychiatric: no depression and not suicidal. All other systems have been reviewed and are negative for complaint. Vitals Vital Signs Printed in Appendix #1 below. Physical Exam Constitutional: alert and in no acute distress. Eyes: no erythema, swelling or discharge from the eye . Neck: neck is supple, symmetric, trachea midline, no masses and no thyromegaly . Pulmonary: no increased work of breathing or signs of respiratory distress and lungs clear to auscultation. Cardiovascular: carotid pulses 2+ bilaterally with no bruit , JVP was normal, no thrills , regular rhythm, normal S1 and S2, no murmurs , pedal pulses 2+ bilaterally and no edema . Abdomen: abdomen non-tender, no masses and no hepatomegaly . Skin: skin warm and dry, normal skin turgor . Psychiatric judgment and insight is normal and oriented to person, place and time . Signatures Electronically signed by : Karson Watts MD; Feb 12 2022 4:39PM EST (Author) Appendix #1 Vital Signs Patient: LYRIC JUAREZ; : 1945; Recorded: 12Feb2022 04:38PMRecorded: [id number] 03:13PMRecorded: [id number] 02:46PM Heart Rate60, R Txaxqe45, R Radial Trcxqdpg162, RUE, Dlpsmxtl050, LUE, Kppmbfy976, RUE, Sitting Guxfetkjn16, RUE, Xiwsxrlh90, LUE, Dsjasva24, RUE, Sitting (more content not included)... Normal [employer] Tobacco Screening.on 022 Adult depression screening assessment Yes [facility] 250 DO Work Phone: Adult depression screening assessment No [facility] 250 DO Work Phone: Fall risk assessment a) No falls within the last year [facility] 250 DO Work Phone: Tobacco use status CPHS b) No [place] [address] DO Work Phone: Laboratory - Coagulationon 1 INR Coag (Bld) [Relative time] 2.40 {INR} [place] [address] DO Work Phone: PROTIMEon 02-06-2022 INR Coag (PPP) [Relative time] 2.40 {INR} Normal [facility] Comment on above: Performed By: #### P T #### [facility] [address] [place] [address] Dr. Marilee Olmos INR GUIDELINES SEE BELOW Normal [facility] Comment on above: Result Comment: SARIKA RED INR: 2.0 - 3.0 CONDITIONS NOT LISTED BELOW 2.5 - 3.5 FOR PROSTHETIC HEART VALVE REPLACEMENT 2.5 - 3.5 RECURRENT THROMBOSIS Performed By: #### P T #### [facility] [address] [place] [address] Dr. Marilee Olmos PT Coag (PPP) [Time] 24.5 s Critically high 9.0-11.6 [facility] Comment on above: Performed By: #### P T #### [facility] [address] [place] [address] Dr. Marilee Olmos Laboratory - Coagulationon 0 01-22-2022 INR Coag (Bld) [Relative time] 3.70 {INR} [place] [address] DO Work Phone: PROTIMEon 01-22-2022 INR Coag (PPP) [Relative time] 3.70 {INR} Normal [facility] Comment on above: Performed By: #### P T #### [facility] [address] [place] [address] Dr. Marilee Olmos INR GUIDELINES SEE BELOW Normal [facility] Comment on above: Result Comment: SARIKA RED INR: 2.0 - 3.0 CONDITIONS NOT LISTED BELOW 2.5 - 3.5 FOR PROSTHETIC HEART VALVE REPLACEMENT 2.5 - 3.5 RECURRENT THROMBOSIS Performed By: #### P T #### [facility] [address] [place] [address] Dr. Marilee Olmos PT Coag (PPP) [Time] 36.7 s Critically high 9.0-11.6 [facility] Comment on above: Performed By: #### P T #### [facility] [address] [place] [address] Dr. Marilee Olmos PROTIMEon 12-24-2021 INR Coag (PPP) [Relative time] 2.79 {INR} Normal [facility] Comment on above: Performed By: #### P T #### [facility] [address] [place] [address] Dr. Marilee Olmos INR GUIDELINES SEE BELOW Normal [facility] Comment on above: Result Comment: SARIKA RED INR: 2.0 - 3.0 CONDITIONS NOT LISTED BELOW 2.5 - 3.5 FOR PROSTHETIC HEART VALVE REPLACEMENT 2.5 - 3.5 RECURRENT THROMBOSIS Performed By: #### P T #### [facility] [address] [place] [address] Dr. Marilee Olmos PT Coag (PPP) [Time] 28.2 s Critically high 9.0-11.6 [facility] Comment on above: Performed By: #### P T #### [facility] [address] [place] [address] Dr. Marilee Olmos Laboratory - Coagulationon 0 11-27-2021 INR Coag (Bld) [Relative time] 2.67 {INR} [place] [address] DO Work Phone: PROTIMEon 11-27-2021 INR Coag (PPP) [Relative time] 2.67 {INR} Normal [facility] Comment on above: Performed By: #### P T #### [facility] [address] [place] [address] Dr. Marilee Olmos INR GUIDELINES SEE BELOW Normal [facility] Comment on above: Result Comment: SARIKA RED INR: 2.0 - 3.0 CONDITIONS NOT LISTED BELOW 2.5 - 3.5 FOR PROSTHETIC HEART VALVE REPLACEMENT 2.5 - 3.5 RECURRENT THROMBOSIS Performed By: #### P T #### [facility] [address] [place] [address] Dr. Marilee Olmos PT Coag (PPP) [Time] 27.0 s Critically high 9.0-11.6 [facility] Comment on above: Performed By: #### P T #### [facility] [address] [address] [address] Marilee Olmos Laboratory - Coagulationon 0 11-06-2021 INR Coag (Bld) [Relative time] 2.79 {INR} [facility] 250 DO Work Phone: PROTIMEon 11-06-2021 INR Coag (PPP) [Relative time] 2.79 {INR} Normal [facility] Comment on above: Performed By: #### P T #### [facility] [address] [place] [address] Dr. Marilee Olmos INR GUIDELINES SEE BELOW Normal [facility] Comment on above: Result Comment: SARIKA RED INR: 2.0 - 3.0 CONDITIONS NOT LISTED BELOW 2.5 - 3.5 FOR PROSTHETIC HEART VALVE REPLACEMENT 2.5 - 3.5 RECURRENT THROMBOSIS Performed By: #### P T #### [facility] [address] [place] [address] [address] Marilee Olmos PT Coag (PPP) [Time] 28.2 s Critically high 9.0-11.6 [facility] Comment on above: Performed By: #### P T #### [facility] [address] [place] [address] Dr. Marilee Olmos Laboratory - Coagulationon 0 10-16-2021 INR Coag (Bld) [Relative time] 3.10 {INR} [facility] 250 DO Work Phone: Laboratory - Coagulationon 0 07-25-2021 INR Coag (Bld) [Relative time] 3.42 {INR} [facility] 600 DO Work Phone: Laboratory - Coagulationon 0 06-26-2021 INR Coag (Bld) [Relative time] 3.7 {INR} [facility] 250 DO Work Phone: Laboratory - Coagulationon 0 06-06-2021 INR Coag (Bld) [Relative time] 3.57 {INR} [facility] 250 DO Work Phone: Office Visit (Cardiology)on 06-04-2021 Follow-up visit Diagnoses/Problems Assessed Essential hypertension (401.9) (I10) Hyperlipidemia (272.4) (E78.5) Chronic atrial fibrillation (427.31) (I48.20) Anticoagulated on warfarin (V58.61) (Z79.01) Never a smoker Class 1 obesity with body mass index (BMI) of 30.0 to 30.9 in adult (278.00,V85.30) (E66.9,Z68.30) Orders Class 1 obesity with body mass index (BMI) of 30.0 to 30.9 in adult Healthy Weight Tips; Status:Complete - Retrospective Authorization; Done: 04Jun2021 SocHx: Never a smoker Tobacco Use Screening; Status:Complete; Done: 04Jun2021 Patient Instructions By signing my name below, I, Dione Alex LPN ,Rhoit, attest that this documentation has been prepared under the direction and in the presence of Dr. Karson Watts MD. All medical record entries made by the Conradibe were at my direction and personally dictated by me. I have reviewed the chart and agree that the record accurately reflects my personal performance of the history, physical exam, discussion and plan. Please bring all medicines, vitamins, and herbal supplements with you when you come to the office. Prescriptions will not be filled unless you are compliant with your follow up appointments or have a follow up appointment scheduled as per instruction of your physician. Refills should be requested at the time of your visit. Continue with Coumadin management follow up as directed. Follow up in 6-9 months Chief Complaint LYRIC JUAREZ is being seen for a 7 month follow-up of. History of Present Illness Returns in follow-up of problems as noted. She is tolerating atrial fibrillation well without any angina CHF arrhythmia or neurologic symptomatology. She is anticoagulated and we feel that her stroke risk has been minimized. Blood pressure and cholesterol management are discussed and reviewed and control appears to be adequate and appropriate because of this we suggest no changes. We did advocate dieting. She recently lost her to lymphoma and she is obviously distraught. Fortunately she has a lot of local family support. Surgical History Problems History of Cholecystectomy History of Colonoscopy [id number] Dr Sarthak Shi History of Eye surgery Past Medical History Problems History of High risk medication use (V58.69) (Z79.899) Current Meds Medication NameInstruction Chlorthalidone 25 MG Oral TabletTAKE 1 TABLET DAILY. DilTIAZem CD 300 MG KS94QIFO 1 CAPSULE Daily Lisinopril 10 MG Oral TabletTAKE 1 TABLET DAILY. Potassium Chloride ER 20 MEQ Oral Tablet Extended ReleaseTake 1 tablet twice daily Pravastatin Sodium 40 MG Oral TabletTAKE 1 TABLET DAILY. Vitamin D CAPSAs directed. Warfarin Sodium 2.5 MG Oral TabletTake 1 - 2 tablets daily as directed by [facility] Patient did not bring medication list or bottles. Updated verbally with patient Allergies Medication Flecainide Acetate TABS Recorded By: Trinity Hurtado; 06/04/2021 9:54:43 AM Hydrocortisone TABS Allergy; Recorded By: Mali Stein; 05/06/2021 2:47:39 PM NonMedication Other Allergy; Recorded By: Mali Stein; 05/06/2021 2:47:39 PM STEROIDS: pressure in eyes Social History Problems Never a smoker No alcohol use No caffeine use No illicit drug use Review of Systems Constitutional: not feeling tired. Eyes: no eyesight problems. ENT: no hearing loss and no nosebleeds. Cardiovascular: no intermittent leg claudication and as noted in HPI. Respiratory: no chronic cough and no shortness of breath. Gastrointestinal: no change in bowel habits and no blood in stools. Genitourinary: no urinary frequency. Skin: no skin rashes. Neurological: no seizures and no frequent falls. Psychiatric: no depression and not suicidal. All other systems have been reviewed and are negative for complaint. Vitals Vital Signs Printed in Appendix #1 below. Physical Exam Constitutional: alert and in no acute distress. Eyes: no erythema, swelling or discharge from the eye . Neck: neck is supple, symmetric, trachea midline, no masses and no thyromegaly . Pulmonary: no increased work of breathing or signs of respiratory distress and lungs clear to auscultation. Cardiovascular: carotid pulses 2+ bilaterally with no bruit , JVP was normal, no thrills , regular rhythm, normal S1 and S2, no murmurs , pedal pulses 2+ bilaterally and no edema . Abdomen: abdomen non-tender, no masses and no hepatomegaly . Skin: skin warm and dry, normal skin turgor . Psychiatric judgment and insight is normal and oriented to person, place and time . Signatures Electronically signed by : Karson Watts MD; Jun 04 2021 11:11AM EST (Author) Appendix #1 Vital Signs Patient: LYRIC JUAREZ; : 1945; Recorded: 04Jun2021 10:35AMRecorded: 04Jun2021 10:00AMRecorded: 04Jun2021 09:58AM Dvpsvayz460, LUE, Xqxtyfi177, RUE, Cmvaqus315, LUE, Sitting Neysmnpvz67, LUE, Ielvvnx55, RUE, Rzpurkn884, LUE, Sitting Heart Rate84, L Brachial Ar (more content not included)... Normal [employer] Tobacco Screening.on 022 Fall risk assessment a) No falls within the last year [facility] [employer] 250 DO Work Phone: Tobacco use status CPHS b) No [facility] [employer] 250 DO Work Phone: Laboratory - Coagulationon 1 INR Coag (Bld) [Relative time] 2.52 {INR} [facility] [employer] 250 DO Work Phone: Laboratory - Coagulationon 0 02-07-2021 INR Coag (Bld) [Relative time] 2.6 {INR} [facility] [employer] 250 DO Work Phone: ANES Hector 07-12-2020 ANES POST HNO ID: [id number] Author: Luis Locke Service: Anesthesiology Author Type: Anesthesiologist Type: Anesthesia PostOp Filed: 07/12/2020 4:38 PM Note Text: POST ANESTHESIA EVALUATION NOTE SERVICE DATE: 07/12/2020 SERVICE TIME: 15:00 : 1945 Vitals: There were no vitals filed for this visit. 07/12/20 1255 07/12/20 1440 07/12/20 1445 07/12/20 1450 BP: 137/79 134/68 128/60 116/71 07/12/20 1254 07/12/20 1440 07/12/20 1445 07/12/20 1450 Pulse: 83 82 84 78 07/12/20 1254 07/12/20 1440 07/12/20 1445 07/12/20 1450 Resp: 14 16 16 16 07/12/20 1254 07/12/20 1440 07/12/20 1445 07/12/20 1450 SpO2: 97% 95% 94% 94% Validated Vital Signs: Yes POST ANES STATUS: No apparent anesthetic complications. The patient is appropriately hydrated with stable respiratory and cardiovascular status. Patient has safe and adequate airway control. The patient has appropriate pain relief and no significant post operative nausea or vomiting. The patient has achieved baseline mental status. Intra-Operative Events: No Significant Anesthesia Events Further assessment by Anesthesia Service: None Other Remarks: SIGNATURE: Luis Locke MD PATIENT NAME: Lyric Juarez DATE: July 12, 2020 TIME: 4:37 PM PAGER/CONTACT #: [phone] Normal [facility] Eye Culture and Smron 2020 Eye Culture and Smr Sp. Request/Comment: - Specimen received in sterile container. Smear Result - No organisms seen No Polymorphonuclear Leukocytes Culture Result - No growth 14 days Normal [facility] Comment on above: Performed By: #### E YEM #### [facility] [address] [place] [address] OPERATIVE NOon 07-12-2020 OPERATIVE NO HNO ID: [id number] Author: Chi Faustin Service: Ophthalmology Author Type: Physician Type: Operative Report Filed: 07/12/2020 2:40 PM Note Text: OPERATIVE REPORT NAME: Lyric Juarez LOG ID: [id number] SURGERY DATE: 07/12/2020 INCISION/PROCEDURE START TIME: 1:57 PM INCISION CLOSE/PROCEDURE END TIME: 2:31 PM Surgeon(s) and Role: * Chi Faustin - Primary * Geoff Frausto MD - Resident - Assisting OPERATION: 1) Removal of exposed Ahmed glaucoma implant, right eye 2) Insertion of FP7 Ahmed glaucoma implant with scleral graft, right eye eye ANESTHESIA: Retrobulbar consisting of 2% lidocaine and 0.75% bupivacaine combined equally. PREOPERATIVE DIAGNOSIS: 1) Eroded Ahmed valved, right eye 2) Indeterminate stage primary open angle glaucoma, right eye. POSTOPERATIVE DIAGNOSIS: Same. OPERATIVE INDICATIONS: The patient has glaucoma in not controlled by medications. OPERATIVE FINDINGS: OPERATIVE PROCEDURE: The patient was taken to the operating room where intravenous sedation was administered and the above-mentioned anesthetic was injected in a retrobulbar fashion. The operative eye was then prepped with povidone-iodine and sterilely draped. Under the operating microscope, 7-0 silk was placed through the superior clear cornea as a traction suture. An 8-0 vicryl suture was pre-placed transconjunctivally around the tube entry site. This suture was tied tightly as the exposed tube was grabbed and pulled free from the anterior chamber. There was no leak. The conjunctiva was cauterized along the anterior edge of the plate and the plate was removed (it was not attached to the sclera at any location.) A bit of necrotic tissue was excised. The conjunctiva was closed with two 8-0 vicryl sutures. The traction suture was removed. All instruments used up to this point were set aside and a fresh set of instruments were used. A small inferotemporal paracentesis was made and the anterior chamber deepened with balanced salt solution. Again, there was no leak at the sclerostomy. A limbal peritomy was carried out inferonasally with radial relaxing incisions at each extent. Posterior sub-Tenon's dissection was carried out bluntly. Hemostasis was achieved with cautery. A 7-0 silk was placed through the inferonasal sclera as a traction suture. An Ahmed implant was primed with balanced salt solution. It was then slipped into Subtenon's space in the inferonasal quadrant. The plate was secured to the sclera with two 7-0 silks. The tube was laid across the limbus and trimmed to length with an anterior bevel, and a proposed sclerotomy site was cauterized. A 23-gauge needle was used to make a tunneling sclerotomy into the anterior chamber, the tube was placed, and was seen to be in good position. To prevent late erosion and exposure of the tube, a scleral reinforcement graft of donor cornea sutured overlying the tube with 8-0 Polysorb. The conjunctiva was reapproximated to the limbus and closed with 7-0 chromic. A subconjunctival injection of cefazolin was made. The traction suture was removed along with the speculum and drapes. Maxitrol was instilled before securing an eye patch and shield. IMPLANTABLE DEVICES: Implant Name Type Inv. Item Serial No. Dog Licenser Lot No. LRB Model Num No. Used IMP CORNEA LAMELLAR 9MM1/2MOON - [id number] Cornea IMP CORNEA LAMELLAR 9MM1/2MOON [id number] OTHER Right [id number] ESTIMATED BLOOD LOSS: Minimal COMPLICATIONS: None DRAINS: None SPECIMENS: None I/primary surgeon/proceduralist performed the entire procedure. Chi Faustin M.D. [facility] CNOVon 07-10-2020 CNOV Office Visit (IMOPMN ) LYRIC JUAREZ ([id number]) 1945 F Date Time Provider Department 07/10/20 10:00 AM LIZETH TUTTLE (MARIAH) IMOPND During your visit today, we recorded the following information about you: Temperature Pulse Blood pressure Weight 97.6 degrees 112/minute 141/85 81.6 kg Height 1.676 m PRISCA Ospina, EMBALMER ASSISTANT 07/10/2020 9:36 AM Signed Consulted by: DR. FAUSTIN Type of Surgery: AQUEOUS SHUNT TO EXTRAOCULAR EQUATORIAL PLATE RESERVOIR EXTERNAL APPROACH W/GRAFT/REVISION AQUEOUS SHUNT TO EXTRAOCULAR EQUATORIAL PLATE RESERVOIR EXTERNAL APPROACH W/O GRAFT/od Patient scheduled for surgery on: 07/12/20 Are you experiencing any eye pain?NO Do you have a history of sleep apnea?NO Do you Have a pacemaker or an ICD?NO Do you or any of your family members have a history of malignant hyperthermia?NO Are you an Insulin dependent Diabetic?NO HCG needed?NO Reviewed pre-admission/surgery instructions with the patient. Questions and concerns answered and any further concerns to be discussed by provider. Lyudmila Zhu L.P.N. Lizeth Ramsey PA-C 07/10/2020 9:57 AM Signed [facility] Patient Instructions for Surgery FOOD INSTRUCTIONS: NO solid food or non-clear liquids for 8 hours prior to the arrival time for your surgery. Unless you are instructed otherwise, you are allowed to drink up to 12 ounces of clear liquids (e.g. water, black tea/coffee, fruit juice without pulp, Katharina Brittny, etc.) up until 2 hours prior to the arrival time for surgery. MEDICATION INSTRUCTIONS: Prior to Surgery: Do not take the following medications for 7 days prior to surgery: - any NSAID's (e.g. Motrin, Aleve, Arthrotec, Naproxen,etc) - any herbal preparations - Aspirin or aspirin containing products - Plavix Do not take any Vitamin E / multivitamins for 10-14 days before surgery You are allowed to take Tylenol if needed until the day of surgery. Continue all medications until the night prior to surgery MEDICATION INSTRUCTIONS: Day/Morning of Surgery: The following medications should be taken with sips of water: take all prescribed morning medications. ANTICOAGULATION BRIDGING INSTRUCTIONS Please follow the directions below for your Coumadin and Lovenox management prior to surgery. Because you are going under anesthesia, you must have a responsible adult crew car driver take you home, and be with you after surgery. You may use a ride service such as Lyft, Uber, or [id number] as long as you have a responsible adult accompanying you and taking responsibility for you. We strongly recommend a reliable adult stays with you overnight to help take care of you. If you have any questions or concerns regarding today's visit please do not hesitate to contact the [facility] at [phone] or [phone], ext [phone]. Signature: Lizeth Ramsey PA-C Date: July 10, 2020 Lizeth Ramsey PA-C 07/10/2020 2:32 PM Signed HISTORY AND PHYSICAL EXAMINATION (IMPACT) SERVICE DATE: 07/10/2020 SERVICE TIME: 8:14 AM PRIMARY CARE PHYSICIAN: Felipe Johnson MD CHIEF COMPLAINT/HISTORY OF PRESENT ILLNESS: Ms. Juarez is a 74 year old female referred to id for preoperative evaluation. My final recommendations will be communicated back to the requesting physician/surgeon by the way of the shared medical record. Referring Surgeon: Dr. Faustin Date of Surgery: 07/12/2020 Planned Surgery/Procedure: Aqueous shunt to extraocular equatorial plate reservoir external approach with graft right eye Indication for Planned Surgery / Procedure: Primary open angle glaucoma right eye MAC Refer to Assessment section for details of any comorbidities. Patient is Able to Perform the Following Physical Activity: Walk a block or two on level ground (2.75 METs) Climb a flight of stairs or walk up a hill (5.50 METs) Patient's functional class is I based on self-reported physical activity. Significant Anesthesia Considerations: Postop nausea/vomiting. PAST MEDICAL/SURGICAL/FAMIL Y/SOCIAL HISTORY PAST MEDICAL HISTORY Diagnosis Date - Afib (HCC) - Cataract OD - HBP (high blood pressure) - Hyperlipemia Hyperlipidemia - Primary open angle glaucoma (POAG) of left eye, moderate stage - Primary open angle glaucoma (POAG) of right eye, mild stage - Pseudophakia 09-07-23 PCOIOL OS - Psoriasis PAST SURGICAL HISTORY Procedure Laterality Date - DISCISSION,2ND CATARACT,LASER Yag Capsulotomy OS - EYE SURGERY PROCEDURE Right 02/10/2018 AQUEOUS SHUNT - LASER SURGERY OF EYE 06/17/2005, 08-26-2007 Selective laser Trabeculoplasty (SLT) OD - LASER SURGERY OF EYE 05-13-2005, 08-16-2007, Selective laser Trabeculoplasty (SLT) - PROCEDURE GALL BLADDER REMOVED - PROCEDURE APPENDETOMY - REMV CATARACT EXTRACAP,INSERT LENS 09/06/2013 Cataract Extraction with PC IOL OS, FEMTO OS - REVISE EYE SHUNT Right / (more content not included)... Normal [facility] HISTORY PHYSICALon HISTORY PHYSICAL HNO ID: [id number] Author: Lizeth Tuttle (Pa) Service: ? Author Type: Physician [employer]her Type: HANDP Filed: 07/10/2020 2:32 PM Note Text: HISTORY AND PHYSICAL EXAMINATION (IMPACT) SERVICE DATE: 07/10/2020 SERVICE TIME: 8:14 AM PRIMARY CARE PHYSICIAN: Felipe Johnson MD CHIEF COMPLAINT/HISTORY OF PRESENT ILLNESS: Ms. Juarez is a 74 year old female referred to me for preoperative evaluation. My final recommendations will be communicated back to the requesting physician/surgeon by the way of the shared medical record. Referring Surgeon: Dr. Faustin Date of Surgery: 07/12/2020 Planned Surgery/Procedure: Aqueous shunt to extraocular equatorial plate reservoir external approach with graft right eye Indication for Planned Surgery / Procedure: Primary open angle glaucoma right eye MAC Refer to Assessment section for details of any comorbidities. Patient is Able to Perform the Following Physical Activity: Walk a block or two on level ground (2.75 METs) Climb a flight of stairs or walk up a hill (5.50 METs) Patient's functional class is I based on self-reported physical activity. Significant Anesthesia Considerations: Postop nausea/vomiting. PAST MEDICAL/SURGICAL/FAMIL Y/SOCIAL HISTORY PAST MEDICAL HISTORY Diagnosis Date - Afib (HCC) - Cataract OD - HBP (high blood pressure) - Hyperlipemia Hyperlipidemia - Primary open angle glaucoma (POAG) of left eye, moderate stage - Primary open angle glaucoma (POAG) of right eye, mild stage - Pseudophakia 09-07-23 PCOIOL OS - Psoriasis PAST SURGICAL HISTORY Procedure Laterality Date - DISCISSION,2ND CATARACT,LASER Yag Capsulotomy OS - EYE SURGERY PROCEDURE Right 02/10/2018 AQUEOUS SHUNT - LASER SURGERY OF EYE 06/17/2005, 08-26-2007 Selective laser Trabeculoplasty (SLT) OD - LASER SURGERY OF EYE 05-13-2005, 08-16-2007, Selective laser Trabeculoplasty (SLT) - PROCEDURE GALL BLADDER REMOVED - PROCEDURE APPENDETOMY - REMV CATARACT EXTRACAP,INSERT LENS 09/06/2013 Cataract Extraction with PC IOL OS, FEMTO OS - REVISE EYE SHUNT Right 01/19/2020 Revision of Glaucoma Implant - WATER SHUNT-EXTRAOCUL RESERV 01/05/2013 Glaucoma Implant EXPRESS SHUNT, [facility] OS - WATER SHUNT-EXTRAOCUL RESERV Left 05/19/2018 KIERA / SRG / OS FAMILY HISTORY Problem Relation Age of Onset - Glaucoma Mother - Cataract Mother - Hypertension Mother - Heart Mother - other (Other) Mother - other (CVA) Mother - Hypertension Father - Heart Father - Cataract Sister - Hypertension Sister - Heart Other MATERNL UNCLE - Cancer Other - Diabetes Other MATERNAL AUNT LIVER SOCIAL HISTORY Social History Tobacco Use - Smoking status: Never Smoker - Smokeless tobacco: Never Used Substance Use Topics - Alcohol use: Not on file - Drug use: No MEDICATIONS/ALLERGIES Current Outpatient Medications Medication Sig Dispense Refill - prednisoLONE acetate (PRED FORTE, ECONOPRED PLUS) 1 % ophthalmic suspension Use 1 Drop in the left eye four times daily. For use AFTER surgery. 10 mL 1 - dorzolamide-timolol, PF, (COSOPT, PF,) 2-0.5 % Use 1 Drop in the left eye every 12 hours. - ONETOUCH DELICA PLUS LANCET 33 gauge USE TO TEST ONCE A DAY *E11.65* - metFORMIN ER (GLUCOPHAGE XR) 500 mg 24 hr tablet Take 500 mg by mouth once daily. - omega-3s/dha/epa/fish oil/D3 (VITAMIN-D + OMEGA-3 ORAL) Take by mouth. - lisinopril (ZESTRIL, PRINIVIL) 10 mg tablet Take 10 mg by mouth once daily. - olopatadine (PAZEO) 0.7 % drop Use 1 Drop in eyes twice daily as needed. 2.5 mL 11 - KLOR-CON M20 20 mEq tablet Take 40 mEq by mouth once daily. 3 - diltiazem CD (CARDIZEM CD, CARTIA XT) 300 mg 24 hr capsule Take 300 mg by mouth every morning. 3 - olmesartan (BENICAR) 40 mg tablet Take 40 mg by mouth once daily. - chlorthalidone (HYGROTON) 25 mg tablet Take 25 mg by mouth once daily. - diltiazem CR (TIAZAC,TAZTIA XT) 300 mg 24 hr capsule Take 300 mg by mouth once daily. - potassium chloride Take 1 mEq/kg/dose by mouth once daily. - pravastatin (PRAVACHOL) 40 mg tablet Take 40 mg by mouth daily at bedtime. - warfarin (COUMADIN) 2.5 mg tablet Take 2.5 mg by mouth five times a week. - warfarin sodium (WARFARIN ORAL) Take 1.25 mg by mouth two times a week. Mondays and Wednesdays No current facility-administered medications for this visit. ALLERGIES Allergen Reactions - Flecainide Intolerance DECREASES HEART RATE, LOW PULSE - Steroids [Betametha* Intolerance STEROID RESPONDER. RAISES INTRA OCULAR PRESSURE REVIEW OF SYSTEMS General: No weight loss, malaise or fevers. Neuro: No history of TIA's, stroke, GENERAL PARTNER tumor, impaired sensorium, hemiplegia, paraplegia or quadriplegia. No neurological symptoms or problems. Respiratory: No history of current cough or dyspnea, or pneumonia in the past 6 weeks. No history of respiratory/pulmonary symptoms or problems. Cardiovascular: Hypertension requiring meds, Anticoagulation therapy, (more content not included)... Normal [facility] PreOp/PreProc COVIDon 2020 SARS-CoV-2 (COVID-19) RNA LAURA+probe Ql (Unsp spec) UPPER RESPIRATORY TRACT SWAB Normal [facility] Comment on above: Performed By: #### P OCOVD #### [facility] [address] [place], [place] [address] SARS-CoV-2 (COVID-19) RNA LAURA+probe Ql (Unsp spec) Negative Normal Negative for COVID19 (SARS CoV2) by PCR. [facility] Comment on above: Result Comment: This test was developed and its performance characteristics determined by [facility] [place]. This test has been authorized by FDA under an Emergency Use Authorization (EUA). This test has been validated in accordance with the FDA's Guidance Document Policy for Diagnostics Testing in Laboratories Certified to Perform High Complexity Testing under CLIA prior to Emergency use Authorization for Coronavirus Disease 2019 during the Public Health Emergency issued on July 09, 2019. Performed By: #### P OCOVD #### [facility] [address] [place], [place] [address] HOSPon 07-04-2020 HOSP Patient:Tracey Juarez cecelia patiño MRN: Height:5' 6 (1.676 m) Weight:180 lb (81.647 kg) Outpatient Medications as of 07/12/20: prednisoLONE acetate (PRED FORTE, ECONOPRED PLUS) 1 % ophthalmic suspension dorzolamide-timolol, PF, (COSOPT, PF,) 2-0.5 % ONETOUCH DELICA PLUS LANCET 33 gauge metFORMIN ER (GLUCOPHAGE XR) 500 mg 24 hr tablet omega-3s/dha/epa/fish oil/D3 (VITAMIN-D + OMEGA-3 ORAL) lisinopril (ZESTRIL, PRINIVIL) 10 mg tablet olopatadine (PAZEO) 0.7 % drop KLOR-CON M20 20 mEq tablet olmesartan (BENICAR) 40 mg tablet chlorthalidone (HYGROTON) 25 mg tablet diltiazem CR (TIAZAC,TAZTIA XT) 300 mg 24 hr capsule pravastatin (PRAVACHOL) 40 mg tablet warfarin (COUMADIN) 2.5 mg tablet warfarin sodium (WARFARIN ORAL) Admission/Clinic Administered Medications as of 07/12/20: lactated ringers infusion lidocaine 200 mg-bupivacaine 75 mg RETROBULBAR 10 mL injection Problem List: Primary open angle glaucoma of both eyes [H40.1130] Primary open angle glaucoma (POAG) of left eye, indeterminate stage [H40.1124] Encounter for screening mammogram for malignant neoplasm of breast [Z12.31] Type 2 diabetes mellitus without complication, without long-term current use of insulin (HCC) [E11.9] oil heaterman (current) use of anticoagulants [Z79.01] Hyperlipidemia [E78.5] Other senior living (current) drug therapy [Z79.899] Chronic atrial fibrillation (HCC) [I48.20] Dyslipidemia [E78.5] Essential hypertension [I10] Status post hysteroscopy [Z98.890] Family history of primary malignant neoplasm of liver [Z80.0] Allergies: Flecainide Steroids [Betamethasone Dipropionate] Date Verified: 07/12/20 Lab Values No results within the last 30 days for the following basenames: K,HCT Progress Notes (OPHT MAIN): Chi Faustin MD 07/04/2020 9:13 AM Signed Tmax: 44, 39; Pachy: 489, 574 Lasers and Surgeries: OD: 01/19/20 KIERA exchange for erosion (Avril Michaels) 02/10/18 KIERA IOP=44 (Gustavo) OS: 05/19/18 KIERA (Gustavo) for IOP 29 05/19/2018? Express Ocular Medication Intol and Non-efficacy: Referred by Dr. Colon and Uriel Transfer of care from Avril Michaels, previously saw Dr. Chen Now on Ciprofloxacin QID OD Cosopt OS daily POAG -Right Ahmed has migrated anteriorly and the plate has eroded -recommend removed Ahmed ST and place new KIERA IN -discussed risks -on Coumadin By signing my name below, I, Madhurya Chetluru, attest that this documentation has been prepared under the direction and in the presence of Dr. Chi Faustin 07/04/2020 I have confirmed and edited as necessary the relevant ophthalmic history, ROS, and the neuro exam findings as obtained by others. I have seen and examined Lyric Juarez. I have discussed the case and the management of this patient's care with the Resident/Fellow, if applicable. I also have reviewed and agree with the assessment and plan as stated above and agree with all of its relevant components. I, Chi Faustin MD, personally performed the services described in this documentation. All medical record entries made by the scribe were at my direction and in my presence. I have reviewed the chart and discharge instructions (if applicable) and agree that the record reflects my personal performance and is accurate and complete. Electronically Signed: Chi Faustin MD, July 04, 2020 8:58 AM. Previous Version Christina Bass 07/04/2020 9:08 AM Signed I have requested that you be schedule for eye surgery. Please call my centrifugal casting machine tender, Catalina Gaytan. She will call you in the next few days if she doesn't hear from you. Catalina (centrifugal casting machine tender:) [phone], option 4. Dr. Faustin Office: [phone] if you have any questions. Please note that you will have visits 1 day, 1 week, 2 weeks, 1 month, and 3 months after surgery. Additional visits may be necessary depending on the healing process. What is an Ahmed tube-shunt? An Ahmed tube-shunt is a glaucoma drainage device that is surgically implanted to lower the pressure within the eye (intraocular pressure) for the treatment of glaucoma. It consists of a tube attached to a plate (Figure 1), which allows fluid to drain from the inside of the eye to the outside of the eye. The tube and plate are covered by your own tissues and by a donor tissue. The tube is permanent and successfully lowers the eye pressure in most people who have one. Figure 1. Ahmed Tube-shunt Why is this device implanted? A glaucoma tube-shunt is implanted when glaucoma eye drops and laser treatments have failed to effectively lower the intraocular pressure. The main goal of the implant is to allow fluid to leave the eye so that the intraocular pressure will decrease and, therefore, prevent further vision loss from glaucoma. How is the procedure done? Before the day of surgery You will have a brief physical examination that may include an electrocardiogram (a heart tracing) and blood work. This w (more content not included)... Normal [facility] CNPNon 06-29-2020 CNPN Telephone (OPHTMN) LYRIC JUAREZ ([id number]) 1945 F Date Time Provider Department 06/29/20 CHI FAUSTIN During your visit today, we recorded the following information about you: Nguyen Fontenotnaseem ADM 06/29/2020 10:[address] Colon ([phone]) would like for Dr. Faustin to see the patient. Dr. Avril Michaels is the physician for the patient but Dr. Colon does not want the patient to follow-up with Dr. Michaels. 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 Naseem Michaels on 07/24/2020 Chi Faustin MD 06/29/2020 12:15 PM Signed Spoke to Dr. Colon. 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 I will message scheduling to get her added next Thu. Allergies As of Date: 06/29/2020 Noted Allergy Reaction FLECAINIDE 01/26/2018 5 - Intolerance Comments: DECREASES HEART RATE, LOW PULSE STEROIDS (BETAMETHASONE DIPROPION*01/26/2018 5 - Intolerance Comments: STEROID RESPONDER. RAISES INTRA OCULAR PRESSURE Date Reviewed: 02/17/2020 Reviewed by: Kaylee Michaels - Fully Assessed Reason for Visit: New Patient [172] Prescriptions as of 06/29/2020 Sig: DORZOLAMIDE-TIMOLOL (PF) 2 %-* Use 1 Drop in the left eye ev* ONETOUCH DELICA PLUS LANCET 3* USE TO TEST ONCE A DAY *E11.6* METFORMIN ER 500 MG TABLET,EX* Take 500 mg by mouth once daniella* VITAMIN-D + OMEGA-3 ORAL Take by mouth. LISINOPRIL 10 MG TABLET Take 10 mg by mouth once london* OLOPATADINE 0.7 % EYE DROPS Use 1 Drop in eyes twice london* KLOR-CON M20 MEQ TABLET,EXTEN* Take 40 mEq by mouth once daniella* DILTIAZEM SR 300 MG 24 HR CAP Take 300 mg by mouth every mo* OLMESARTAN 40 MG TABLET Take 40 mg by mouth once lnodon* CHLORTHALIDONE 25 MG TABLET Take 25 mg by mouth once london* DILTIAZEM CR 300 MG CAP Take 300 mg by mouth once daniella* POTASSIUM CHLORIDE.-FOR TPN Take 1 mEq/kg/dose by mouth o* PRAVASTATIN 40 MG TABLET Take 40 mg by mouth daily at * WARFARIN 2.5 MG TABLET Take 2.5 mg by mouth five jeri* WARFARIN ORAL Take 1.25 mg by mouth two jeri* Problem List As Of Date 06/29/2020 Noted Resolved Primary open angle glaucoma of both eyes [H40.1*01/26/2018 More... Primary open angle glaucoma of left eye [H40.11*04/09/2018 More... Encounter Status:Closed by CHI FAUSTIN MD on 06/29/20 Normal [facility] PT/INRon 10-12-2019 INR Coag (PPP) [Relative time] 2.4 {INR} High 0.9 - 1.1 [facility] Comment on above: Performed By: #### P TINR #### [address] [address] PT Coag (PPP) [Time] 28.1 s High 10.1 - 13.3 [facility] Comment on above: Result Comment: Note new reference range as of 10/04/2019. Performed By: #### P TINR #### [address] [address] PT/INRon 09-12-2019 INR Coag (PPP) [Relative time] 2.5 {INR} High 0.9 - 1.1 [facility] Comment on above: Performed By: #### P TINR #### [address] [place] [address] PT Coag (PPP) [Time] 28.5 s High 9.7 - 12.7 [facility] Comment on above: Performed By: #### P TINR #### [address] [address] PT/INRon 08-10-2019 INR Coag (PPP) [Relative time] 2.1 {INR} High 0.9 - 1.1 [facility] Comment on above: Performed By: #### P TINR #### [address] [address] PT Coag (PPP) [Time] 23.6 s High 9.7 - 12.7 [facility] Comment on above: Performed By: #### P TINR #### [address] [address] PT/INRon 07-13-2019 INR Coag (PPP) [Relative time] 2.2 {INR} High 0.9 - 1.1 [facility] Comment on above: Performed By: #### P TINR #### [address] [place] [address] PT Coag (PPP) [Time] 24.7 s High 9.7 - 12.7 [facility] Comment on above: Performed By: #### P TINR #### [address] [place] [address] PT/INRon 06-15-2019 INR Coag (PPP) [Relative time] 2.2 {INR} High 0.9 - 1.1 [facility] Comment on above: Performed By: #### P TINR #### [address] [place] [address] PT Coag (PPP) [Time] 25.6 s High 9.7 - 12.7 [facility] Comment on above: Performed By: #### P TINR #### [address] [place] [address] PT/INRon 06-01-2019 INR Coag (PPP) [Relative time] 2.1 {INR} High 0.9 - 1.1 [facility] Comment on above: Performed By: #### P TINR #### [address] [place] [address] PT Coag (PPP) [Time] 23.6 s High 9.7 - 12.7 [facility] Comment on above: Performed By: #### P TINR #### [address] [place] [address] PT/INRon 05-17-2019 INR Coag (PPP) [Relative time] 1.8 {INR} High 0.9 - 1.1 [facility] Comment on above: Performed By: #### P TINR #### [address] [place] [address] PT Coag (PPP) [Time] 20.2 s High 9.7 - 12.7 [facility] Comment on above: Performed By: #### P TINR #### [address] [place] [address] PT/INRon 04-27-2019 INR Coag (PPP) [Relative time] 1.9 {INR} High 0.9 - 1.1 [facility] Comment on above: Performed By: #### P TINR #### [address] [place] [address] PT Coag (PPP) [Time] 21.6 s High 9.7 - 12.7 [facility] Comment on above: Performed By: #### P TINR #### [address] [place] [address] PT/INRon 04-11-2019 INR Coag (PPP) [Relative time] 1.7 {INR} High 0.9 - 1.1 [facility] Comment on above: Performed By: #### P TINR #### [address] [place] [address] PT Coag (PPP) [Time] 19.6 s High 9.7 - 12.7 [facility] Comment on above: Performed By: #### P TINR #### [address] [place] [address] PT/INRon 03-14-2019 INR Coag (PPP) [Relative time] 2.0 {INR} High 0.9 - 1.1 [facility] Comment on above: Performed By: #### P TINR #### [address] [place] [address] PT Coag (PPP) [Time] 22.3 s High 9.7 - 12.7 [facility] Comment on above: Performed By: #### P TINR #### [address] [place] [address] PT/INRon 02-09-2019 INR Coag (PPP) [Relative time] 2.0 {INR} High 0.9 - 1.1 [facility] Comment on above: Performed By: #### P TINR #### [address] [place] [address] PT Coag (PPP) [Time] 22.9 s High 9.7 - 12.7 [facility] Comment on above: Performed By: #### P TINR #### [address] [place] [address] PT/INRon 01-12-2019 INR Coag (PPP) [Relative time] 2.2 {INR} High 0.9 - 1.1 [facility] Comment on above: Performed By: #### P TINR #### [address] [place] [address] PT Coag (PPP) [Time] 24.9 s High 9.7 - 12.7 [facility] Comment on above: Performed By: #### P TINR #### [address] [place] [address] PT/INRon 12-13-2018 INR Coag (PPP) [Relative time] 2.1 {INR} High 0.9 - 1.1 [facility] Comment on above: Performed By: #### P TINR #### [address] [address] PT Coag (PPP) [Time] 24.0 s High 9.7 - 12.7 [facility] Comment on above: Performed By: #### P TINR #### [address] [address] PT/INRon 11-08-2018 INR Coag (PPP) [Relative time] 2.3 {INR} High 0.9 - 1.1 [facility] Comment on above: Performed By: #### P TINR #### [address] [address] PT Coag (PPP) [Time] 26.3 s High 9.7 - 12.7 [facility] Comment on above: Performed By: #### P TINR #### [address] [address] Prothrombin Timeon 9 INR Coag RelTime (PPP) 3.70 {INR} High 0.90-1.10 [facility] Comment on above: Performed By: #### 3 [id number] #### [facility] [address] [place] [address] Prothrombin time (PT) Coag time (PPP) 42.9 s High 9.7-12.7 [facility] are Comment on above: Result Comment: MARY LOPEZ NOTE NEW REFERENCE RANGE EFFECTIVE 2018 Performed By: #### 3 [id number] #### [facility] [address] [place] [address] Prothrombin Timeon 9 INR Coag RelTime (PPP) 2.42 {INR} High 0.90-1.10 [facility] Comment on above: Performed By: #### 3 [id number] #### [facility] [address] [place] [address] Prothrombin time (PT) Coag time (PPP) 27.9 s High 9.7-12.7 [facility] are Comment on above: Result Comment: MARY LOPEZ NOTE NEW REFERENCE RANGE EFFECTIVE 2018 Performed By: #### 3 [id number] #### [facility] [address] [place] [address] Prothrombin Timeon 9 INR Coag RelTime (PPP) 2.74 {INR} High 0.90-1.10 [facility] Comment on above: Performed By: #### 3 [id number] #### [facility] [address] [place] [address] Prothrombin time (PT) Coag time (PPP) 31.6 s High 9.7-12.7 [facility] are Comment on above: Result Comment: PLEA SE NOTE NEW REFERENCE RANGE EFFECTIVE 2018 Performed By: #### 3 [id number] #### [facility] [address] [place] [address] Prothrombin Timeon 9 INR Coag RelTime (PPP) 1.79 {INR} High 0.90-1.10 [facility] Comment on above: Performed By: #### 3 [id number] #### [facility] [address] [place] [address] Prothrombin time (PT) Coag time (PPP) 20.5 s High 9.7-12.7 [facility] are Comment on above: Result Comment: PLEA SE NOTE NEW REFERENCE RANGE EFFECTIVE 2018 Performed By: #### 3 [id number] #### [facility] [address] [place] [address] Prothrombin Timeon 9 INR Coag RelTime (PPP) 3.66 {INR} High 0.90-1.10 [facility] Comment on above: Performed By: #### 3 [id number] #### [facility] [address] [place] [address] Prothrombin time (PT) Coag time (PPP) 42.5 s High 9.7-12.7 [facility] are Comment on above: Result Comment: MARY LOPEZ NOTE NEW REFERENCE RANGE EFFECTIVE 2018 Performed By: #### 3 [id number] #### [facility] [address] [place] [address] Prothrombin Timeon 8 INR Coag RelTime (PPP) 2.59 {INR} High 0.90-1.10 [facility] Comment on above: Performed By: #### 3 [id number] #### [facility] [address] [place] [address] Prothrombin time (PT) Coag time (PPP) 29.8 s High 9.7-12.7 [facility] are Comment on above: Result Comment: MARY LOPEZ NOTE NEW REFERENCE RANGE EFFECTIVE 2018 Performed By: #### 3 [id number] #### [facility] [address] [place] [address] Prothrombin Timeon 8 INR Coag RelTime (PPP) 3.57 {INR} High 0.90-1.10 [facility] Comment on above: Performed By: #### 3 [id number] #### [facility] [address] [place] [address] Prothrombin time (PT) Coag time (PPP) 41.4 s High 9.7-12.7 [facility] are Comment on above: Result Comment: MARY LOPEZ NOTE NEW REFERENCE RANGE EFFECTIVE 2018 Performed By: #### 3 [id number] #### [facility] [address] [place] [address] Prothrombin Timeon 8 INR Coag RelTime (PPP) 3.57 {INR} High 0.90-1.10 [facility] Comment on above: Performed By: #### 3 [id number] #### [facility] [address] [place] [address] Prothrombin time (PT) Coag time (PPP) 40.1 s High 9.8-12.7 [facility] are Comment on above: Performed By: #### 3 [id number] #### [facility] [address] [place] [address] Prothrombin Timeon 8 INR Coag RelTime (PPP) 1.78 {INR} High 0.90-1.10 [facility] Comment on above: Performed By: #### 3 [id number] #### [facility] [address] [place] [address] Prothrombin time (PT) Coag time (PPP) 19.9 s High 9.8-12.7 [facility] are Comment on above: Performed By: #### 3 [id number] #### [facility] [address] [place] [address] Prothrombin Timeon 8 INR Coag RelTime (PPP) 2.46 {INR} High 0.90-1.10 [facility] Comment on above: Performed By: #### 3 [id number] #### [facility] [address] [place] [address] Prothrombin time (PT) Coag time (PPP) 27.6 s High 9.8-12.7 [facility] are Comment on above: Performed By: #### 3 [id number] #### [facility] [address] [place] [address] Prothrombin Timeon 8 INR Coag RelTime (PPP) 2.76 {INR} High 0.90-1.10 [facility] Comment on above: Performed By: #### 3 [id number] #### [facility] [address] [place] [address] Prothrombin time (PT) Coag time (PPP) 30.9 s High 9.8-12.7 [facility] are Comment on above: Performed By: #### 3 [id number] #### [facility] [address] [place] [address] Prothrombin Timeon 8 INR Coag RelTime (PPP) 3.19 {INR} High 0.90-1.10 [facility] Comment on above: Result Comment: MARY LOPEZ NOTE NEW REFERENCE RANGE EFFECTIVE 2017 Performed By: #### 3 [id number] #### [facility] [address] [place] [address] Prothrombin time (PT) Coag time (PPP) 35.8 s High 9.8-12.7 [facility] are Comment on above: Result Comment: BARTA SE NOTE NEW REFERENCE RANGE EFFECTIVE 2017 Performed By: #### 3 [id number] #### [facility] [address] [place] [address] Prothrombin Timeon 8 INR Coag RelTime (PPP) 3.37 {INR} High 0.90-1.10 [facility] Comment on above: Result Comment: MARY LOPEZ NOTE NEW REFERENCE RANGE EFFECTIVE 2017 Performed By: #### 3 [id number] #### [facility] [address] [place] [address] Prothrombin time (PT) Coag time (PPP) 37.9 s High 9.8-12.7 [facility] are Comment on above: Result Comment: MARY LOPEZ NOTE NEW REFERENCE RANGE EFFECTIVE 2017 Performed By: #### 3 [id number] #### [facility] [address] [place] [address] Prothrombin Timeon 8 INR Coag RelTime (PPP) 2.56 {INR} High 0.90-1.10 [facility] Comment on above: Result Comment: MARY LOPEZ NOTE NEW REFERENCE RANGE EFFECTIVE 2017 Performed By: #### 3 [id number] #### [facility] [address] [place] [address] Prothrombin time (PT) Coag time (PPP) 28.7 s High 9.8-12.7 [facility] are Comment on above: Result Comment: AMRY LOPEZ NOTE NEW REFERENCE RANGE EFFECTIVE 2017 Performed By: #### 3 [id number] #### [facility] [address] [place] [address], [place] [address] Prothrombin Timeon 8 INR Coag RelTime (PPP) 2.28 {INR} High 0.90-1.10 [facility] Comment on above: Result Comment: MARY LOPEZ NOTE NEW REFERENCE RANGE EFFECTIVE 2017 Performed By: #### 3 [id number] #### [facility] [address] [place] [address] Prothrombin time (PT) Coag time (PPP) 25.5 s High 9.8-12.7 [facility] are Comment on above: Result Comment: MARY LOPEZ NOTE NEW REFERENCE RANGE EFFECTIVE 2017 Performed By: #### 3 [id number] #### [facility] [address] [place] [address] Vital Signs Date Time Vital Sign Value Performing Clinician Facility 09-28-2023 09:10-0400 Diastolic blood pressure 80 mm[Hg] Karson Watts MD Work Phone: [facility] 09-28-2023 09:10-0400 Systolic blood pressure 130 mm[Hg] Karson Watts MD Work Phone: [facility] 09-28-2023 08:35-0400 Body height 167.6 cm Karson Watts MD Work Phone: [facility] 09-28-2023 08:35-0400 Body mass index (BMI) [Ratio] 29.05 kg/m2 Karson Watts MD Work Phone: [facility] 09-28-2023 08:35-0400 Body weight 81.65 kg Karson Watts MD Work Phone: [facility] 09-28-2023 08:35-0400 Heart rate 60 /min Karson Watts MD Work Phone: [facility] 09-29-2022 08:06-0400 Body height 165.1 cm Felipe Johnson Work Phone: [facility] DO Work Phone: 09-29-2022 08:06-0400 Body mass index (BMI) [Ratio] 29.45 kg/m2 Felipe Johnson Work Phone: [facility] DO Work Phone: 09-29-2022 08:06-0400 Body surface area Derived from formula 1.88 m2 Felipe Johnson Work Phone: [facility] DO Work Phone: 09-29-2022 08:06-0400 Body weight 80.29 kg Felipe Johnson Work Phone: [facility] DO Work Phone: 09-29-2022 08:06-0400 Diastolic blood pressure 82 mm[Hg] Felipe Johnson Work Phone: [facility] DO Work Phone: 09-29-2022 08:06-0400 Heart rate 88 /min Felipe Johnson Work Phone: [facility] DO Work Phone: 09-29-2022 08:06-0400 Systolic blood pressure 138 mm[Hg] Felipe Johnson Work Phone: [facility] DO Work Phone: 03-17-2022 00:00-0500 94.6 1 Felipe Johnson Work Phone: [facility] DO Work Phone: Comment on above: [facility] 02-12-2022 16:38-0400 Body height 165.1 cm Felipe Johnson Work Phone: [facility] DO Work Phone: 02-12-2022 16:38-0400 Body mass index (BMI) [Ratio] 29.95 kg/m2 Felipe Johnson Work Phone: [facility] DO Work Phone: 02-12-2022 16:38-0400 Body surface area Derived from formula 1.89 m2 Felipe Johnson Work Phone: [facility] DO Work Phone: 02-12-2022 16:38-0400 Body weight 81.65 kg Felipe Johnson Work Phone: [facility] DO Work Phone: 02-12-2022 16:38-0400 Diastolic blood pressure 76 mm[Hg] Felipe Johnson Work Phone: [facility] DO Work Phone: 02-12-2022 16:38-0400 Heart rate 60 /min Felipe Johnson Work Phone: [facility] DO Work Phone: 02-12-2022 16:38-0400 Systolic blood pressure 130 mm[Hg] Felipe Johnson Work Phone: [facility] DO Work Phone: 02-12-2022 15:13-0400 Diastolic blood pressure 76 mm[Hg] Felipe Johnson Work Phone: [facility] DO Work Phone: 02-12-2022 15:13-0400 Systolic blood pressure 160 mm[Hg] Felipe Johnson Work Phone: [facility] DO Work Phone: 02-12-2022 14:46-0400 Body height 165.1 cm Felipe Johnson Work Phone: [facility] DO Work Phone: 02-12-2022 14:46-0400 Body mass index (BMI) [Ratio] 29.95 kg/m2 Felipe Johnson Work Phone: [facility] DO Work Phone: 02-12-2022 14:46-0400 Body surface area Derived from formula 1.89 m2 Felipe Johnson Work Phone: [facility] DO Work Phone: 02-12-2022 14:46-0400 Body weight 81.65 kg Felipe Johnson Work Phone: [facility] DO Work Phone: 02-12-2022 14:46-0400 Diastolic blood pressure 82 mm[Hg] Felipe Johnson Work Phone: [facility] DO Work Phone: 02-12-2022 14:46-0400 Heart rate 60 /min Felipe Johnson Work Phone: [facility] DO Work Phone: 02-12-2022 14:46-0400 Systolic blood pressure 168 mm[Hg] Felipe Johnson Work Phone: [facility] DO Work Phone: 06-04-2021 10:35-0500 Diastolic blood pressure 78 mm[Hg] Felipe Johnson Work Phone: [facility] DO Work Phone: 06-04-2021 10:35-0500 Systolic blood pressure 128 mm[Hg] Felipe Johnson Work Phone: [facility] DO Work Phone: 06-04-2021 10:00-0500 Diastolic blood pressure 84 mm[Hg] Felipe Johnson Work Phone: [facility] DO Work Phone: 06-04-2021 10:00-0500 Systolic blood pressure 154 mm[Hg] Felipe Johnson Work Phone: [facility] DO Work Phone: 06-04-2021 09:58-0500 Body height 165.1 cm Felipe Johnson Work Phone: [facility] DO Work Phone: 06-04-2021 09:58-0500 Body mass index (BMI) [Ratio] 30.12 kg/m2 Felipe Johnson Work Phone: [facility] DO Work Phone: 06-04-2021 09:58-0500 Body surface area Derived from formula 1.9 m2 Felipe Johnson Work Phone: [facility] DO Work Phone: 06-04-2021 09:58-0500 Body weight 82.1 kg Felipe Lucia Johnson Work Phone: [facility] DO Work Phone: 06-04-2021 09:58-0500 Diastolic blood pressure 101 mm[Hg] Felipe Johnson Work Phone: [facility] DO Work Phone: 06-04-2021 09:58-0500 Heart rate 84 /min Felipe Johnson Work Phone: [facility] DO Work Phone: 06-04-2021 09:58-0500 Systolic blood pressure 161 mm[Hg] Felipe Johnson Work Phone: [facility] DO Work Phone: Encounters Encounter Date Encounter Type Care Provider Facility Start: 02-29-2024 End: 02-29-2024 Bamboo flowsheet Milkaumu Rich AUD Work Phone: [facility] Start: 02-29-2024 End: 02-29-2024 Bamboo flowsheet Milkaumu Rich AUD Work Phone: [facility] Start: 02-29-2024 End: 02-29-2024 Patient encounter procedure Milka Rich AUD Work Phone: [facility] Comment on above: 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) Start: 02-29-2024 End: 02-29-2024 ambulatory MILKA Fabio SHARRI Not Available Start: 01-28-2024 End: 01-28-2024 ambulatory INDRA ALEXANDER Not Available Start: 01-08-2024 End: 01-08-2024 ambulatory CHI LEDEZMA Not Available Start: 11-19-2023 End: 11-19-2023 ambulatory INDRA ALEXANDER Not Available Start: 09-28-2023 End: 09-28-2023 ambulatory KARSON Hurst [facility] Amb[facility] Start: 09-28-2023 End: 09-28-2023 Office outpatient visit 25 minutes Karson Watts MD Work Phone: [facility] Comment on above: Chronic atrial fibri llation (Multi) (Primary Dx); Essential hypertension; Mixed hyperlipidemia; Hyperlipidemia, unspecified Start: 09-10-2023 End: 09-10-2023 ambulatory INDRA ALEXANDER Not Available Start: 09-04-2023 End: 09-04-2023 ambulatory CHI LEDEZMA Not Available Start: 08-28-2023 End: 08-28-2023 ambulatory MILKA S RICH Not Available Start: 08-06-2023 End: 08-06-2023 ambulatory EVER SQUIRES Not Available Start: 08-05-2023 End: 08-05-2023 ambulatory MILKA S RICH Not Available Start: 07-14-2023 End: 07-14-2023 ambulatory MILKA S RICH Not Available Start: 07-02-2023 End: 07-02-2023 ambulatory INDRA ALEXANDER Not Available Start: 06-15-2023 Mendez schilling COT Work Phone: [facility] Comment on above: Rce (recurrent corne al erosion), left (Primary Dx) Start: 06-05-2023 End: 06-05-2023 ambulatory CHI LEDEZMA Not Available Start: 06-02-2023 End: 06-02-2023 ambulatory EVER SQUIRES Not Available Start: 05-26-2023 End: 05-26-2023 ambulatory EVER W MURCEK Not Available Start: 05-19-2023 End: 05-19-2023 ambulatory EVER W MURCEK Not Available Start: 04-27-2023 End: 04-27-2023 ambulatory CHI LEDEZMA Not Available Start: 04-23-2023 End: 04-23-2023 ambulatory INDRA ALEXANDER Not Available Start: 04-22-2023 End: 04-22-2023 ambulatory MILKA RICH Not Available Start: 10-07-2022 End: 10-08-[address] KARSON WATTS Facility:H1 Start: 10-02-2022 Rx Renewal Felipe Johnson Work Phone: [facility] DO Work Phone: Start: 09-12-2022 Patient encounter procedure Felipe Johnson Work Phone: [facility] DO Work Phone: Start: 09-11-2022 End: 09-11-[address] KARSON WATTS Facility:[facility]1 Start: 08-14-2022 End: 09-08-[address] KARSON WATTS Facility:H1 Start: 08-11-2022 End: 08-12-[address] DOCTOR VILLEDA Facility:H1 Start: 07-30-2022 End: 07-31-[address] KARSON WATTS Facility:H1 Start: 07-23-2022 Rx Renewal Felipe Johnson Work Phone: [facility] DO Work Phone: Start: 06-18-2022 End: 07-09-[address] KARSON WATTS Facility:H1 Start: 06-09-2022 End: 06-10-[address] KARSON WATTS Facility:H1 Start: 05-19-2022 End: 05-20-[address] KARSON WATTS Facility:H1 Start: 04-28-2022 End: 04-29-[address] KARSON WATTS Facility:H1 Start: 03-26-2022 End: 03-27-[address] FELIPE JOHNSON Facility:H1 Start: 03-20-2022 Rx Renewal Felipe Johnson Work Phone: [facility] DO Work Phone: Start: 03-17-2022 End: 03-18-[address] FELIPE JOHNSON Facility:H1 Start: 02-26-2022 End: 02-27-[address] KARSON WATTS Facility:H1 Start: 02-12-2022 Office outpatient vi sit 15 minutes Felipe Johnson Work Phone: [facility] DO Work Phone: Start: 02-12-[address] Felipe Johnson Facility: Start: 02-06-2022 End: 02-07-[address] KARSON WATTS Facility:H1 Start: 01-22-2022 End: 01-23-[address] KARSON WATTS Facility:H1 Start: 12-30-2021 Rx Renewal Felipe Johnson Work Phone: [facility] DO Work Phone: Start: 12-24-2021 End: 12-25-[address] KARSON WATTS Facility:H1 Start: 11-29-2021 Rx Renewal Felipe Johnson Work Phone: [facility] DO Work Phone: Start: 11-28-2021 End: 11-28-2021 ambulatory HORACE SURESH . Facility:H1 Start: 11-27-2021 End: 11-28-[address] FELIPE JOHNSON Facility:H1 Start: 11-04-2021 Rx Renewal Felipe Johnson Work Phone: [facility] 250 DO Work Phone: Start: 09-30-2021 Rx Renewal Fleipe Johnson Work Phone: [facility] DO Work Phone: Start: 07-23-2021 Rx Renewal Felipe Johnson Work Phone: [facility] DO Work Phone: Start: 06-27-2021 Rx Renewal Felipe Johnson Work Phone: [facility] DO Work Phone: Start: 06-04-2021 Office outpatient vi sit 25 minutes Felipe Johnson [facility] Work Phone: Start: 06-04-2021 ambulatory Karson Watts II Faci lity: Start: 02-11-2021 Patient encounter procedure [facility] Work Phone: Start: 08-02-2018 Patient encounter procedure KARSON WATTS Facility:[id number] Start: 07-06-2018 Patient encounter procedure KARSON WATTS Facility:[id number] Start: 06-08-2018 Patient encounter procedure KARSON WATTS Facility:[id number] Start: 05-27-2018 Patient encounter procedure KARSON WATTS Facility:[id number] Start: 05-13-2018 Patient encounter procedure KARSON WATTS Facility:[id number] Start: 04-15-2018 Patient encounter procedure KARSON WATTS Facility:[id number] Start: 03-23-2018 Patient encounter procedure KARSON WATTS Facility:[id number] Start: 03-03-2018 Patient encounter procedure KARSON WATTS Facility:[id number] Start: 02-15-2018 Patient encounter procedure KARSON WATTS Facility:[id number] Start: 01-07-2018 Patient encounter procedure KARSON WATTS Facility:[id number] Start: 12-09-2017 Patient encounter procedure KARSON WATTS Facility:[id number] Start: 11-12-2017 Patient encounter procedure KARSON WATTS Facility:[id number] Start: 10-19-2017 Patient encounter procedure KARSON WATTS Facility:[id number] Start: 09-16-2017 Patient encounter procedure KARSON WATTS Facility:[id number] Start: 08-13-2017 Patient encounter procedure KARSON WATTS Facility:[id number] Procedures Date Procedure Procedure Detail Performing Clinician Cholecystectomy Felipe maria Work Phone: Colonoscopy Felipe Johnson Work Phone: Comment on above: [id number] Sarthak Shi; Surgical procedure o n eye proper Felipe Johnson Work Phone: Plan of Treatment Date Care Activity Detail Author Start: 07-27-2024 End: 07-27-2024 Patient encounter procedure 07/27/2024 9:00 AM EDT Office Visit [facility] [address] [place] [id number] Milka Rich, AUD [address] [place] [address] [facility] Start: 05-18-2024 End: 05-18-2024 Patient encounter procedure 05/18/2024 9:30 AM EST Office Visit [facility] [address] [place] [id number] Chi Ledezma, [address] [place] [address] [facility] Start: 04-20-2024 End: 04-20-2024 Patient encounter procedure 04/20/2024 9:20 AM EST Office Visit [facility] [address] [facility] [address] [place] [address] Frandy Urena MD [address] [facility] [address] [place] [address] [facility] Start: 04-14-2024 End: 04-14-2024 Patient encounter procedure 04/14/2024 8:30 AM EST Procedure Visit [facility] [address] [facility] [address] [place] [address] Indra Alexander DPM [address] [facility] [address] [place] [address] [facility] Start: 02-29-2024 End: 02-29-2024 Patient encounter procedure 02/29/2024 9:00 AM EDT Office Visit [facility] [address] [place] [id number] Milka Rich, AUD [address] [place] [address] Arrived [facility] Comment on above: Arrived Start: 01-10-2024 Influenza vaccination Influenza Vacc ine (#1) [facility] Start: 09-28-2023 FUV, Provider: Karson Watts, Status: Pen, Time: 8:00 AM FUV, Provider: Karson Watts, Status: Pen, Time: 8:00 AM [facility] 250 DO Work Phone: Start: 09-04-2023 End: 09-04-2023 Patient encounter procedure 09/04/2023 9:00 AM EDT Office Visit [facility] [address] [place] [address] Chi Ledezma, DO [address] [place] [address] [facility] Start: 07-14-2023 End: 07-14-2023 Patient encounter procedure 07/14/2023 9:30 AM EST Office Visit [facility] [address] [place] [phone] Milka Rich, AUD [address] [place] [address] [facility] Start: 07-02-2023 End: 07-02-2023 Patient encounter procedure 07/02/2023 8:30 AM EST Procedure Visit [facility] [address] [facility] [address] [place] [phone] Indra Alexander, DPTrinity [address] [facility] [address] [place] [address] [facility] Start: 01-09-2023 COVID-19 Vaccine ( season) COVID-19 Vaccine ( season) [facility] Start: 10-07-2022 FUV, Provider: Karson Watts, Status: Pen, Time: 11:00 AM FUV, Provider: Karson Watts, Status: Pen, Time: 11:00 AM -[facility] 250 DO Work Phone: Start: 09-29-2022 FUV, Provider: Karson Watts, Status: Pen, Time: 7:50 AM FUV, Provider: Karson Watts, Status: Pen, Time: 7:50 AM -[facility] DO Work Phone: Start: 02-12-2022 FUV, Provider: Karson Watts, Status: Pen, Time: 2:50 PM FUV, Provider: Karson Watts, Status: Pen, Time: 2:50 PM MP-[facility] 250 DO Work Phone: Start: 06-04-2021 FUV, Provider: Karson Watts, Status: Pen, Time: 9:30 AM FUV, Provider: Karson Watts, Status: Pen, Time: 9:30 AM -[facility] 250 DO Work Phone: Start: 2005 RSV patient s and/or patients aged 60+ years (1 - 1-dose 60+ series) RSV patients and/or patients aged 60+ years (1 - 1-dose 60+ series) [facility] Start: 09-03-1995 Zoster Vaccines (1 o f 2) Zoster Vaccines (1 of 2) [facility] Start: 09-03-1967 DTaP/Tdap/Td Vaccine s (1 - Tdap) DTaP/Tdap/Td Vaccines (1 - Tdap) [facility] Start: 09-03-1963 Diabetes mellitus screening Diabetes Screening [facility] Start: 09-03-1963 Hepatitis C screening [facility] Start: [facility] Lipid panel Lipid Panel [facility] Start: 1945 Screening for osteoporosis Bone Density Scan [facility] Start: 1945 Yearly Adult Physical Yearly Adult P hysical [facility] Immunizations Immunization Date Immunization Notes Care Provider Fa gavin 01-28-2023 influenza virus vacc ine, unspecified formulation Milka ROBERTS Work Phone: [facility] 04-24-2021 Fluad Quadrivalent 0 .5 ML Intramuscular Prefilled Syringe Felipe Johnson Work Phone: [facility] 250 DO Work Phone: 03-06-2021 Moderna COVID-19 Vac cine 100 MCG/0.5ML Intramuscular Suspension Felipe E Johnson Work Phone: [facility] 250 DO Work Phone: 07-24-2020 Moderna COVID-19 Vac cine 100 MCG/0.5ML Intramuscular Suspension Felipe E Johnson Work Phone: [facility] 250 DO Work Phone: 06-28-2020 Moderna COVID-19 Vac cine 100 MCG/0.5ML Intramuscular Suspension Felipe Johnson Work Phone: [place] [address] DO Work Phone: 01-10-2020 influenza, high dose seasonal, preservative-free Felipe Johnson Work Phone: [place] [address] DO Work Phone: 02-08-2019 influenza virus vacc ine, unspecified formulation Felipe Johnson Work Phone: [place] [address] DO Work Phone: 03-02-2018 Seasonal trivalent influenza vaccine, adjuvanted, preservative free Felipe Lucia Johnson Work Phone: [facility] 250 DO Work Phone: 02-08-2018 influenza virus vacc ine, unspecified formulation Felipe Lucia Johnson Work Phone: [facility] 250 DO Work Phone: 02-19-2017 influenza virus vacc ine, unspecified formulation Felipe Johnson Work Phone: [place] [address] DO Work Phone: 02-19-2017 influenza, high dose seasonal, preservative-free Karson Watts MD Work Phone: [facility] Work Phone: 02-04-2016 influenza, high dose seasonal, preservative-free Felipe Johnson Work Phone: [place] [address] DO Work Phone: 01-10-2016 influenza virus vacc ine, unspecified formulation Felipe E Johnson Work Phone: [place] [address] DO Work Phone: 01-10-2016 pneumococcal conjuga te vaccine, 13 valent Felipe Johnson Work Phone: [place] [address] DO Work Phone: 02-08-2015 influenza virus vacc ine, unspecified formulation Felipeerika Johnson Work Phone: [place] [address] DO Work Phone: 02-08-2014 influenza virus vacc ine, unspecified formulation Felipe Lucia Johnson Work Phone: [place] [address] DO Work Phone: 05-11-2012 influenza virus vacc ine, unspecified formulation Felipe Johnson Work Phone: [place] [address] DO Work Phone: 05-11-2012 pneumococcal polysaccharide vaccine, 23 valent Felipe Johnson Work Phone: [place] [address] DO Work Phone: 05-11-2011 influenza virus vacc ine, unspecified formulation Felipe Johnson Work Phone: [place] [address] DO Work Phone: 05-11-2010 influenza virus vacc ine, unspecified formulation Felipe Johnson Work Phone: [facility] 250 DO Work Phone: 05-11-2010 pneumococcal polysaccharide vaccine, 23 valent Felipe Johnson Work Phone: [facility] 250 DO Work Phone: 06-27-2009 novel influenza-H1N1 -09, preservative-free, injectable Felipe Myers Yan Work Phone: [place] [address] DO Work Phone: 03-11-2009 influenza virus vacc ine, unspecified formulation Felipe Myers Johnson Work Phone: [place] [address] DO Work Phone: Payers Date Payer Category Payer Private Health Insurance [id number] 2022 Private Health Insurance [id number] 2010 Medicare [id number] 1959 Medicare [id number] 1959 Unknown [id number] 1945 Unknown [id number] 2.16.8 40.1.248220.3.579.2.355 1945 Unknown [id number] 2.16.8 40.1.667281.3.579.2.355 1945 Unknown [id number] 2.16.8 40.1.157671.3.579.2.355 1945 Unknown [id number] 2.16.8 40.1.135936.3.579.2.355 1945 Unknown [id number] 2.16.8 40.1.434446.3.579.2.355 1945 Unknown [id number] 2.16.8 40.1.321648.3.579.2.355 1945 Unknown [id number] 2.16.8 40.1.820049.3.579.2.355 1945 Unknown [id number] 2.16.8 40.1.269758.3.579.2.355 1945 Unknown [id number] 2.16.8 40.1.019536.3.579.2.355 1945 Unknown [id number] 2.16.8 40.1.846076.3.579.2.355 1945 Unknown [id number] 2.16.8 40.1.893118.3.579.2.355 1945 Unknown [id number] 2.16.8 40.1.918613.3.579.2.355 1945 Unknown [id number] 2.16.8 40.1.260845.3.579.2.355 1945 Unknown [id number] 2.16.8 40.1.436668.3.579.2.355 1945 Unknown [id number] 2.16.8 40.1.819096.3.579.2.355 1945 Unknown [id number] 2.16. 840.1.098330.3.579.2.356 1945 Unknown [id number] 2.16. 840.1.894415.3.579.2.356 1945 Unknown [id number] 2.16.84 0.1.657903.3.579.2.593 1945 Unknown [id number] 2.16.84 0.1.949350.3.579.2.593 1945 Unknown [id number] 2.16.84 0.1.761130.3.579.2.593 1945 Unknown [id number] 2.16.84 0.1.288137.3.579.2.593 1945 Unknown [id number] 2.16.84 0.1.825039.3.579.2.593 1945 Unknown [id number] 2.16.84 0.1.316512.3.579.2.593 1945 Unknown [id number] 2.16.84 0.1.141882.3.579.2.593 1945 Unknown [id number] 2.16.84 0.1.773537.3.579.2.593 1945 Unknown [id number] 2.16.84 0.1.997701.3.579.2.593 1945 Unknown [id number] 2.16.84 0.1.814434.3.579.2.593 1945 Unknown [id number] 2.16.84 0.1.353565.3.579.2.593 1945 Unknown [id number] 2.16.84 0.1.126363.3.579.2.593 1945 Unknown [id number] 2.16.84 0.1.410111.3.579.2.593 1945 Unknown [id number] 2.16.84 0.1.405117.3.579.2.593 1945 Unknown [id number] 2.16.84 0.1.668493.3.579.2.593 1945 Unknown [id number] 2.16.84 0.1.233473.3.579.2.593 1945 Unknown [id number] 2.16.84 0.1.683553.3.579.2.593 1945 Unknown [id number] 2.16.8 40.1.225150.3.579.2.1244 1945 Unknown [id number] 2.16.84 0.1.301497.3.579.2.1259 1945 Unknown [id number] 2.16.84 0.1.377999.3.579.2.1259 1945 Unknown [id number] 2.16.84 0.1.534183.3.579.2.1259 1945 Unknown [id number] 2.16.84 0.1.217765.3.579.2.1258 1945 Unknown [id number] 2.16.84 0.1.965241.3.579.2.1258 1945 Unknown [id number] 2.16.84 0.1.532661.3.579.2.1258 1945 Unknown [id number] 2.16.84 0.1.621253.3.579.2.1258 1945 Unknown [id number] 2.16.84 0.1.715620.3.579.2.1258 1945 Unknown [id number] 2.16.84 0.1.489027.3.579.2.1258 1945 Unknown [id number] 2.16.84 0.1.772865.3.579.2.1258 1945 Unknown [id number] 2.16.84 0.1.269033.3.579.2.1258 1945 Unknown [id number] 2.16.84 0.1.197252.3.579.2.1258 1945 Unknown [id number] 2.16.84 0.1.309240.3.579.2.1258 1945 Unknown [id number] 2.16.84 0.1.051675.3.579.2.1258 1945 Unknown [id number] 2.16.84 0.1.217808.3.579.2.125 1945 Unknown [id number] 2.16.840 .1.611174.3.579.2.1258 1945 Unknown [id number] 2.16.840 .1.935074.3.579.2.125 1945 Unknown [id number] 2.16.840 .1.032033.3.579.2.1259 Medicare [id number] Unknown [id number] Unknown Social History Date Type Detail Facility Start: 05-19-2023 End: 01-28-2024 No alcohol use No alcohol use -[facility] DO Work Phone: Start: 11-06-2022 End: 02-23-2023 Tobacco smoking status NHIS Never smoked tobacco [facility] Start: 11-06-2022 End: 02-23-2023 Tobacco use and exposure Smokeless tobacco non-user [facility] Start: 06-05-2023 End: 01-28-2024 Alcohol intake Lifetime non-drinker (finding) [facility] Start: 05-19-2023 End: 01-28-2024 Tobacco use panel [facility] Start: 1945 Sex Assigned At Not on file N [facility] Start: 09-28-2023 Alcoholic beverage intake Ex-drinker (finding) [facility] Work Phone: Start: 09-18-2023 End: 09-28-2023 Exposure to SARS-CoV-2 (event) Not sure [facility] NEGATED: Highlighted rowStart: NINF History of tobacco use Passive smoker [facility] Clinical Notes 07-03-2020 to 02-29-2024 Milka Rich, ALEJANDRA - 02/29/2024 9:00 AM Tobi Watts MD - 09/28/2023 8:40 AM EDTPatient Instructions Note Date & Type Note Facility 02-29-2024 History of Presen t illness Narrative HACK: Pt was seen for a 6 month check on her left hearing aid. She states it stopped working a couple weeks ago and she has not been able to wear it. A visual inspection revealed occlusive wax present in the guard. Informed patient of this and reviewed maintenance. Practiced changing them today. After maintenance, this revealed a working hearing aid. Otoscopy revealed minimal partially occlusive, cerumen in the left ear canal, which was removed without incident, using instrumentation. Tms visible post removal. Pt feels she must really push her hearing aid into her ear, and then she hears very well. Reviewed proper insertion and pt did well. Pt would like a bit more volume. She has trouble hearing others in a car or when in a noisy situation. Discussed limitations of basic technology. Increased highlight in DSP, increased MF gain in fine tuning overall, and increased gain offsets in a noisy environment. Pt pleased and willing to try settings. She is scheduled to return in 6 months for routine maintenance (last [place] appt) but was encouraged to let us know if any problems were to arise in the interim. documented in this encounter [facility] 09-28-2023 History of Presen t illness Narrative Subjective Lyric Juarez is a 78 y.o. female Chief Complaint Follow-up HPI Review of Systems All other systems reviewed and are negative. Patient returns in follow-up of problems as noted. She is aerobically active. 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 She is doing well. Heart rate control and blood pressure control appear adequate and because of this we suggest no adjustments or changes in therapy. She was educated regarding the rationale for care as well as cardiac signs and symptoms to watch for. We also did advocate the merits of diet and weight loss and she understands our recommendation Vitals: 09/28/23 0835 09/28/23 0856 09/28/23 0910 BP: (!) 160/98 150/80 130/80 BP Location: Left arm Left arm Right arm Patient Position: Sitting Sitting Sitting Pulse: 60 Weight: 81.6 kg (180 lb) Height: 1.676 m (5' 6 ) Objective Physical Exam Constitutional: Appearance: Normal appearance. HENT: Nose: Nose normal. Neck: Vascular: No carotid bruit. Cardiovascular: Rate and Rhythm: Normal rate. Pulses: Normal pulses. Heart sounds: Normal heart sounds. Pulmonary: Effort: Pulmonary effort is normal. Abdominal: General: Bowel sounds are normal. Palpations: Abdomen is soft. Musculoskeletal: General: Normal range of motion. Cervical back: Normal range of motion. Right lower leg: No edema. Left lower leg: No edema. Skin: General: Skin is warm and dry. Neurological: General: No focal deficit present. Mental Status: She is alert. Psychiatric: Mood and Affect: Mood normal. Behavior: Behavior normal. Thought Content: Thought content normal. Judgment: Judgment normal. Allergies Flecainide and Hydrocortisone Current Medications Current Outpatient Medications: cholecalciferol (Vitamin D3) 50 mcg (2,000 unit) capsule, Take 1 capsule (50 mcg) by mouth early in the morning.., Disp: , Rfl: dorzolamide-timolol, PF, (Cosopt) 2-0.5 % ophthalmic solution, PLACE 1 DROP INTO AFFECTED EYE(S) IN THE MORNING AND 1 DROP BEFORE BEDTIME, Disp: , Rfl: erythromycin (Romycin) 5 mg/gram (0.5 %) ophthalmic ointment, APPLY A SMALL AMOUNT INTO LEFT EYE EVERY THREE HOURS WHILE AWAKE, Disp: , Rfl: Klor-Con M20 20 mEq ER tablet, TAKE 2 TABLETS BY MOUTH EVERY DAY, Disp: 180 tablet, Rfl: 3 loteprednol (Lotemax) 0.5 % ophthalmic suspension, INSTILL 1 DROP INTO LEFT EYE THREE TIMES A DAY, Disp: , Rfl: warfarin (Coumadin) 2.5 mg tablet, TAKE 1/2 TO 1 TABLET BY MOUTH DAILY OR DIRECTED BY [facility], Disp: 90 tablet, Rfl: 1 chlorthalidone (Hygroton) 25 mg tablet, Take 1 tablet (25 mg) by mouth once daily., Disp: 90 tablet, Rfl: 3 dilTIAZem CD (Cardizem CD) 300 mg 24 hr capsule, Take 1 capsule (300 mg) by mouth once daily., Disp: 90 capsule, Rfl: 3 lisinopril 10 mg tablet, Take 1 tablet (10 mg) by mouth once daily., Disp: 90 tablet, Rfl: 3 pravastatin (Pravachol) 40 mg tablet, Take 1 tablet (40 mg) by mouth once daily at bedtime., Disp: 90 tablet, Rfl: 3 Assessment/Plan 1. Chronic atrial fibrillation (Multi) Patient has adequate rate control and excellent aerobic capacity and suggesting that rate control is a satisfactory strategy for chronic atrial fibrillation - dilTIAZem CD (Cardizem CD) 300 mg 24 hr capsule; Take 1 capsule (300 mg) by mouth once daily. Dispense: 90 capsule; Refill: 3 - Follow Up In Cardiology; Future 2. Essential hypertension Review of treatment strategy demonstrates adequate control - chlorthalidone (Hygroton) 25 mg tablet; Take 1 tablet (25 mg) by mouth once daily. Dispense: 90 tablet; Refill: 3 - lisinopril 10 mg tablet; Take 1 tablet (10 mg) by mouth once daily. Dispense: 90 tablet; Refill: 3 3. Mixed hyperlipidemia Review of treatment strategy demonstrates adequate control 4. Hyperlipidemia, unspecified Review of treatment strategy demonstrates adequate control - pravastatin (Pravachol) 40 mg tablet; Take 1 tablet (40 mg) by mouth once daily at bedtime. Dispense: 90 tablet; Refill: 3 Scribe Attestation By signing my name below, I, Maria E MccarthyJosr BOWDEN , Scribe attest that this documentation has been prepared under the direction and in the presence of Karson Watts MD. Provider Attestation - Scribe documentation All medical record entries made by the Scribe were at my direction and personally dictated by me. I have reviewed the chart and agree that the record accurately reflects my personal performance of the history, physical exam, discussion and plan. documented in this encounter [facility] Work Phone: 09-28-2023 Instructions Kim Pickett LPN - 09/28/2023 8:40 AM EDT Please bring all medicines, vitamins, and herbal supplements with you when you come to the office. Prescriptions will not be filled unless you are compliant with your follow up appointments or have a follow up appointment scheduled as per instruction of your physician. Refills should be requested at the time of your visit. documented in this encounter [facility] Work Phone: 07-18-2020 Note HNO ID: [id number] Author: Chi Faustin Service: ? Author Type: Physician Type: Progress Notes Filed: 07/18/2020 9:56 AM Note Text: Tmax: 44, 39; Pachy: 489, 574 Lasers and Surgeries: OD: 07/12/[address] KIERA, place IN KIERA 01/19/20 KIERA exchange for erosion ([facility]) 02/10/18 KIERA IOP=44 ([place]) OS: 05/19/18 KIERA ([place]) for IOP 29 05/19/2018? Express Ocular Medication Intol and Non-efficacy: ? Referred by Dr. Trevino ? Now on Ciprofloxacin QID OD PF QID OD Cosopt OS daily ? POAG -Right Ahmed had migrated anteriorly and the plate had eroded -POW#1 removal of exposed KIERA ST, place new IN KIERA OD -IOP up slightly -new tube well positioned and well covered -stop Cipro -PF qid for 1 more week then tid after that - anticipate slow taper Geoff Frausto MD PGY-4 Ophthalmology Resident By signing my name below, I, Ivanfelisa Muñozlu, attest that this documentation has been prepared under the direction and in the presence of Dr. Chi Faustin 07/18/2020 I have confirmed and edited as necessary the relevant ophthalmic history, ROS, and the neuro exam findings as obtained by others. I have seen and examined Lyric Juarez. I have discussed the case and the management of this patient's care with the Resident/Fellow, if applicable. I also have reviewed and agree with the assessment and plan as stated above and agree with all of its relevant components. I, Chi Faustin MD, personally performed the services described in this documentation. All medical record entries made by the scribe were at my direction and in my presence. I have reviewed the chart and discharge instructions (if applicable) and agree that the record reflects my personal performance and is accurate and complete. Electronically Signed: Chi Faustin MD, July 18, 2020 9:53 AM. [facility] 07-13-2020 Note HNO ID: [id number] Author: Chi Faustin Service: ? Author Type: Physician Type: Progress Notes Filed: 07/13/2020 9:23 AM Note Text: Tmax: 44, 39; Pachy: 489, 574 Lasers and Surgeries: OD: 07/12/[address] KIERA, place IN KIERA 01/19/20 KIERA exchange for erosion ([facility]) 02/10/18 KIERA IOP=44 ([place]) OS: 05/19/18 KIERA ([place]) for IOP 29 05/19/2018? Express Ocular Medication Intol and Non-efficacy: Referred by Dr. Trevino Now on Ciprofloxacin QID OD (none overnight OD) Cosopt OS daily POAG -Right Ahmed had migrated anteriorly and the plate had eroded -POD#1 removal of exposed KIERA ST, place new IN KIERA OD -new tube well positioned and well covered -use cipro + PF qid -RV next week as scheduled By signing my name below, I, Christina Muñozlu, attest that this documentation has been prepared under the direction and in the presence of Dr. Chi Faustin 07/13/2020 I have confirmed and edited as necessary the relevant ophthalmic history, ROS, and the neuro exam findings as obtained by others. I have seen and examined Lyric Juarez. I have discussed the case and the management of this patient's care with the Resident/Fellow, if applicable. I also have reviewed and agree with the assessment and plan as stated above and agree with all of its relevant components. I, Chi Faustin MD, personally performed the services described in this documentation. All medical record entries made by the scribe were at my direction and in my presence. I have reviewed the chart and discharge instructions (if applicable) and agree that the record reflects my personal performance and is accurate and complete. Electronically Signed: Chi Faustin MD, July 13, 2020 9:18 AM. [facility] 07-04-2020 Note HNO ID: [id number] Author: Chi Faustin Service: ? Author Type: Physician Type: Progress Notes Filed: 07/04/2020 9:13 AM Note Text: Tmax: 44, 39; Pachy: 489, 574 Lasers and Surgeries: OD: 01/19/20 KIERA exchange for erosion ([facility]) 02/10/18 KIERA IOP=44 ([place]) OS: 05/19/18 KIERA ([place]) for IOP 29 05/19/2018? Express Ocular Medication Intol and Non-efficacy: Referred by Dr. Colon and Uriel Transfer of care from [facility], previously saw Dr. Chen Now on Ciprofloxacin QID OD Cosopt OS daily POAG -Right Ahmed has migrated anteriorly and the plate has eroded -recommend removed Ahmed ST and place new KIERA IN -discussed risks -on Coumadin By signing my name below, I, Ivanfelisa Shelia, attest that this documentation has been prepared under the direction and in the presence of Dr. Chi Faustin 07/04/2020 I have confirmed and edited as necessary the relevant ophthalmic history, ROS, and the neuro exam findings as obtained by others. I have seen and examined Lyric Juarez. I have discussed the case and the management of this patient's care with the Resident/Fellow, if applicable. I also have reviewed and agree with the assessment and plan as stated above and agree with all of its relevant components. I, Chi Faustin MD, personally performed the services described in this documentation. All medical record entries made by the scribe were at my direction and in my presence. I have reviewed the chart and discharge instructions (if applicable) and agree that the record reflects my personal performance and is accurate and complete. Electronically Signed: Chi Faustin MD, July 04, 2020 8:58 AM. [facility] 07-03-2020 Note Patient Outreach ([place] VAMN) LYRIC JUAREZ ([id number]) 1945 F Date Time Provider Department 07/03/20 MILKA MARTEL During your visit today, we recorded the following information about you: Allergies As of Date: 07/03/2020 Noted Allergy Reaction FLECAINIDE 01/26/2018 5 - Intolerance Comments: DECREASES HEART RATE, LOW PULSE STEROIDS (BETAMETHASONE DIPROPION*01/26/2018 5 - Intolerance Comments: STEROID RESPONDER. RAISES INTRA OCULAR PRESSURE Date Reviewed: 02/17/2020 Reviewed by: Kaylee Michaels - Fully Assessed Order(s):SARS-COVID VACCINE 1ST DOSE APPT [[id number]] Order #: [id number] FUTURE Prescriptions as of 07/03/2020 Sig: DORZOLAMIDE-TIMOLOL (PF) 2 %-* Use 1 Drop in the left eye ev* ONETOUCH DELICA PLUS LANCET 3* USE TO TEST ONCE A DAY *E11.6* METFORMIN ER 500 MG TABLET,EX* Take 500 mg by mouth once daniella* VITAMIN-D + OMEGA-3 ORAL Take by mouth. LISINOPRIL 10 MG TABLET Take 10 mg by mouth once [place]ondon* OLOPATADINE 0.7 % EYE DROPS Use 1 Drop in eyes twice [place]ondon* KLOR-CON M20 MEQ TABLET,EXTEN* Take 40 mEq by mouth once daniella* DILTIAZEM SR 300 MG 24 HR CAP Take 300 mg by mouth every mo* OLMESARTAN 40 MG TABLET Take 40 mg by mouth once london* CHLORTHALIDONE 25 MG TABLET Take 25 mg by mouth once london* DILTIAZEM CR 300 MG CAP Take 300 mg by mouth once danielal* POTASSIUM CHLORIDE.-FOR TPN Take 1 mEq/kg/dose by mouth o* PRAVASTATIN 40 MG TABLET Take 40 mg by mouth daily at * WARFARIN 2.5 MG TABLET Take 2.5 mg by mouth five jeri* WARFARIN ORAL Take 1.25 mg by mouth two jeri* Problem List As Of Date 07/03/2020 Noted Resolved Primary open angle glaucoma of both eyes [H40.1*01/26/2018 More... Primary open angle glaucoma of left eye [H40.11*04/09/2018 More... Encounter Status:Closed by EPIC, PRODUSER on 07/06/20 [facility] Evaluation note Diagnosis Rce (recurrent corneal erosion), left- Primary [facility] Diagnosis Chronic atrial fibrillation (Multi)- Primary Atrial fibrillation Essential hypertension Unspecified essential hypertension Mixed hyperlipidemia Hyperlipidemia, unspecified documented in this encounter [facility] Work Phone: Evaluation note* Diagnosis Mixed conductive and sensorineural hearing loss of left ear with restricted hearing of right ear- Primary [facility] Present illness NarrativeReturns in follow-up of problems as noted. She is tolerating atrial fibrillation well without any angina CHF arrhythmia or neurologic symptomatology. She is anticoagulated and we feel that her strokerisk has been minimized. Blood pressure and cholesterol management are discussed and reviewed and control appears to be adequate and appropriate because of this we suggest no changes. We did advocatedieting. She recently lost her to lymphoma and she is obviously distraught. Fortunately shehas a lot of local family support[facility] Work Phone: History of Present illness NarrativePatient returns for follow-up of problems as noted. She doing well. She is active and denies anginaCHF or arrhythmia symptomatology. Auscultation demonstrates satisfactory rate control. She is tolerating antithrombotic therapy well and this was discussed in detail. Her lipids also appear to be adequately controlled. The only opportunity for improvement would be probable weight loss and we did dis cuss the merits of diet exercise and weight loss.-[facility] DO Work Phone: Reason for referral (narrative)* Consultation (Routine) - Authorized Specialty Diagnoses / Procedures Referred By Contac t Referred To Contact Cardiology Diagnoses Chronic atrial fibrillation (Multi) Procedures Follow Up In Cardiology Karson Watts MD [address] [place] [id number] Frandy Urena MD [address] [place] [id number] Referral ID Status Reason Start Date Expiration Date V isits Requested Visits Authorized [id number] Authorized 09/28/2023 09/27/2024 1 1 [facility] Work Phone: Summary Purpose Family History No Family History Records FoundUnknown Family Member Name Dates Details Family history of arterioscl erotic cardiovascular disease: Mother, Father(V17.49, Z82.49) Status:Active Unknown Family Member Name Dates Details Family history of arterioscl erotic cardiovascular disease: Mother, Father(V17.49, Z82.49) Status:Active Unknown Family Member Name Dates Details Family history of arterioscl erotic cardiovascular disease: Mother, Father(V17.49, Z82.49) Status:Active Unknown Family Member Name Dates Details Family history of arterioscl erotic cardiovascular disease: Mother, Father(V17.49, Z82.49) Status:Active Unknown Family Member Name Dates Details Family history of arterioscl erotic cardiovascular disease: Mother, Father(V17.49, Z82.49) Status:Active Unknown Family Member Name Dates Details Family history of arterioscl erotic cardiovascular disease: Mother, Father(V17.49, Z82.49) Status:Active Unknown Family Member Name Dates Details Family history of arterioscl erotic cardiovascular disease: Mother, Father(V17.49, Z82.49) Status:Active Unknown Family Member Name Dates Details Family history of arterioscl erotic cardiovascular disease: Mother, Father(V17.49, Z82.49) Status:Active Unknown Family Member Name Dates Details Family history of arterioscl erotic cardiovascular disease: Mother, Father(V17.49, Z82.49) Status:Active Unknown Family Member Name Dates Details Family history of arterioscl erotic cardiovascular disease: Mother, Father(V17.49, Z82.49) Status:Active Unknown Family Member Name Dates Details Family history of arterioscl erotic cardiovascular disease: Mother, Father(V17.49, Z82.49) Status:Active Unknown Family Member Name Dates Details Family history of arterioscl erotic cardiovascular disease: Mother, Father(V17.49, Z82.49) Status:Active Unknown Family Member Name Dates Details Family history of arterioscl erotic cardiovascular disease: Mother, Father(V17.49, Z82.49) Status:Active Unknown Family Member Name Dates Details Family history of arterioscl erotic cardiovascular disease: Mother, Father(V17.49, Z82.49) Status:Active Unknown Family Member Name Dates Details Family history of arterioscl erotic cardiovascular disease: Mother, Father(V17.49, Z82.49) Status:Active Unknown Family Member Name Dates Details Family history of arterioscl erotic cardiovascular disease: Mother, Father(V17.49, Z82.49) Status:Active Advance Directives No Advanced Directives Records FoundNo Advanced Directives Records FoundNo Advanced Directives Records FoundNo Advanced Directives Records FoundNo Advanced Directives Records FoundNo Advanced Directives Records FoundNo Advanced Directives Records FoundNo Advanced Directives Records Found Chief Complaint LYRIC JUAREZ is being seen for a 7 month follow-up of.LYRIC JUAREZ is being seen for a 6 month follow-up of. Additional Source Comments INFORMATION SOURCE (unrecogn ized section and content) DATE CREATED AUTHOR 08/04/2018 [facility] DATE CREATED AUTHOR AUTHOR'S ORGANIZ ATION 10/14/2019 [facility] DATE CREATED AUTHOR AUTHOR'S ORGANIZ ATION 06/16/2021 [facility] DATE CREATED AUTHOR AUTHOR'S ORGANIZ ATION 02/13/2022 [facility] DATE CREATED AUTHOR AUTHOR'S ORGANIZ ATION 02/13/2022 [facility] DATE CREATED AUTHOR AUTHOR'S ORGANIZ ATION 10/17/2022 [facility] DATE CREATED AUTHOR AUTHOR'S ORGANIZ ATION 09/29/2023 [facility] DATE CREATED AUTHOR AUTHOR'S ORGANIZ ATION 03/01/2024 [facility] EPIC Reason for Visit (unrecogniz ed section and content) Reason Onset Date Comments Med Refill 06/15/2023 Reason Comments Follow-up 9-12m Care Teams (unrecognized sec tion and content) Reference Data Expert Relationship Specialty Start Date End Date Felipe Johnson MD [address] [place] [phone] PCP - General Family Medicine 11/12/22 Reference Data Expert Relationship Specialty Start Date End Date Felipe Johnson MD [address] [place] [address] PCP - General 08/18/18 Reference Data Expert Relationship Specialty Start Date End Date Felipe Johnson MD [address] [place] [phone] PCP - General Family Medicine 02/16/24 Reference Data Expert Relationship Specialty Start Date End Date Felipe Johnson MD [address] [place] [phone] PCP - General Family Medicine 02/16/24 FOR RECORDS PERTAINING TO PATIENTS WHO ARE OR HAVE BEEN ENROLLED IN A CHEMICAL DEPENDENCY/SUBSTANCEABUSE PROGRAM, SOME INFORMATION MAY BE OMITTED. This clinical summary was aggregated from multiple sources. Caution should be exercised in using it in the provision of clinical care. This summary normalizes information from multiple sources, and as a consequence, information in this document may materially change the coding, format and clinical context of patient data. In addition, data may be omitted in some cases. CLINICAL DECISIONS SHOULD BE BASED ON THE PRIMARY CLINICAL RECORDS. [facility] [employer] [facility]. provides no warranty or guarantee of the accuracy or completeness of information in this document.
[2024-04-25 08:11] LABS: Basophils Absolute Auto 0.1 10^3/uL (0.0-0.1); Basophils Percent Auto 1.3 % (0.2-2.0); Eosinophils Absolute Auto 0.3 10^3/uL (0.0-0.7); Eosinophils Percent Auto 2.7 % (0.9-7.0); Hematocrit 42.1 % (36.0-48.0); Hemoglobin 13.9 g/dL (12.0-16.0); Immature Granulocytes Abs Auto 0.04 10^3/uL (0.00-0.03); Immature Granulocytes Pct Auto 0.4 % (0.0-0.5); Lymphocytes Absolute Auto 1.1 10^3/uL (1.2-3.8); Lymphocytes Percent Auto 10.7 % (20.5-60.0); Mean Corpuscular Hemoglobin 30.4 pg (26.7-34.0); Mean Corpuscular Volume 92.1 fL (81.0-99.0); Mean Platelet Volume 9.4 fL (9.5-13.5); Monocytes Absolute Auto 0.9 10^3/uL (0.3-0.8); Monocytes Percent Auto 9.3 % (1.7-12.0); Neutrophils Absolute Auto 7.4 10^3/uL (1.4-6.5); Neutrophils Percent Auto 75.6 % (43.0-75.0); Platelet Count 419 10^3/uL (150-450); Red Blood Count 4.57 10^6/uL (4.20-5.40); Red Cell Distribution Width 13.1 % (11.0-15.0); White Blood Count 9.8 10^3/uL (4.0-11.0)
[2024-04-25 08:28] LABS: Estimated Average Glucose 171 mg/dL; Glycohemoglobin A1C 7.6 % (4.5-6.2)
[2024-04-25 08:35] LABS: Creatinine Urine Random 21.34 mg/dL (20.00-300.00); Microalbum Creatinine Ratio Ur 557.6 mg/g (0.0-29.9); Microalbumin Urine Random 11.9 mg/dL (<=30.0)
[2024-04-25 08:41] LABS: Alanine Aminotransferase 21 U/L (14-59); Albumin Globulin Ratio 1.1; Albumin Level 4.1 g/dL (3.4-5.0); Alkaline Phosphatase 84 U/L (46-116); Anion Gap 13.9; Aspartate Amino Transferase 20 U/L (15-37); BUN Creatinine Ratio 17.1; Bilirubin Total 0.7 mg/dL (0.2-1.0); Calcium 9.6 mg/dL (8.5-10.1); Chloride 97 mmol/L (98-107); Chol HDL Ratio 3.3; Cholesterol 200 mg/dL (<=200); Estimated GFR (African America 54 (>=60 mL/min/1.73m^2); Estimated GFR (Non-African Ame 45 (>=60 mL/min/1.73m^2); Globulin 3.8 g/dL; Glucose 147 mg/dL (74-106); HDL Cholesterol 61 mg/dL (40-60); Potassium 3.9 mmol/L (3.5-5.1); Sodium 137 mmol/L (136-145); Total Protein 7.9 g/dL (6.4-8.2); Triglycerides 147 mg/dL (<=150); VLDL CHOLESTEROL 29.4 mg/dL
== END 2024-04-25 07:42 | disposition home or self-care (01) ==
LOC: LAB 07:42
PROVIDERS: PCP Family Medicine; Visit Provider Family Medicine
DX: E78.5 Hyperlipidemia, unspecified (principal); E11.65 Type 2 diabetes mellitus with hyperglycemia; I10 Essential (primary) hypertension; I48.0 Paroxysmal atrial fibrillation; E55.9 Vitamin D deficiency, unspecified
CPT/HCPCS: 36415; 80053; 80061; 82043; 82306; 82570; 83036; 85025

== ENCOUNTER 2024-05-12 01:46 | Outpatient (RCR) | payer MEDICARE, OTHER, SELFPAY | END 2024-06-10 14:34 | disposition home or self-care (01) | LOC: MM 01:46 | PROVIDERS: PCP Family Medicine; Visit Provider Internal Medicine | DX: Z51.81 Encounter for therapeutic drug level monitoring (principal); Z79.01 Long term (current) use of anticoagulants; I48.20 Chronic atrial fibrillation, unspecified | CPT/HCPCS: 85610; G0463 ==

== ENCOUNTER 2024-06-11 15:17 | Emergency (ER) | payer MEDICARE, OTHER, SELFPAY ==
[2024-06-11] VITALS (19 sets, daily range): BP systolic 91–113; BP diastolic 58–88; PULSE 80–131; TEMP 37.3–37.8; O2SAT 93–96; BMI 27.8
--- OUTSIDE RECORDS SUMMARY | 2024-06-11 15:26 | XMS_ITS | CCD ---
Author Organization [facility] Care Team Providers Care Civil Service Clerk Name Role Phone SUKHWINDERNKARSON P Attending Unavailable [...] YOEL, DR LIZAMA Admitting Unavailable MCGUINBonifacio, DR ILZAMA Consulting Unavailable JOHNSON, DR FELIPE Myers Primary [...] JOHNSON, DR FELIPE Myers Primary Care Unavailable YOEL, DR LIZAMA Attending Unavailable Felipe Johnson MD Primary Care Provider [phone] Felipe Johnson MD Primary Care Provider [phone] Felipe Johnson MD Primary Care Provider Felipe Johnson MD Primary Care Provider Karson Watts MD Unavailable KARSON Larsen Attending Unavailable FELIPE JOHNSON Primary Care Unavailable FRANDY URENA Attending Unavailable KARSON WATTS Referring Unavailable FELIPE JOHNSON Primary Care Unavailable EVER SQUIRES Referring Unavailable EVER SQUIRES Attending Unavailable CHI LEDEZMA Attending Unavailable INDRA ALEXANDER Attending Unavailable MILKA RICH Attending Unavailable MILKA RICH Attending Unavailable MILKA RICH Attending Unavailable CHI LEDEZMA Attending Unavailable INDRA ALEXANDER Attending Unavailable INDRA ALEXANDER Attending Unavailable CHI LEDEZMA Attending Unavailable INDRA ALEXANDER Attending Unavailable MILKA RICH Attending Unavailable INDRA ALEXANDER Attending Unavailable CHI LEDEZMA Attending Unavailable Allergies Allergy Classification Reported Allergen(s) Allergy Type Date of Onset Reaction(s) Facility (20 sources) Flecainide; Translations: [Flecainide Acetate TABS] Drug Allergy 8 GI intolerance, Rash, Hives, Unknown [facility] (20 sources) Hydrocortisone; Translations: [Hydrocortisone TABS] Drug Allergy 3 Unknown [facility] Healthcare Work Phone: (16 sources) Other Allergy to substance (finding) [facility] y [facility] DO Work Phone: (2 sources) Flecainide; Translations: [FLECAINIDE] Drug Allergy 3 [facility] Repository (12 sources) Betamethasone Drug Allergy 8 GI intolerance [facility] (1 source) Hydrocortisone; Translations: [HYDROCORTISONE] Drug Allergy 3 [facility] 3 Repository Medications Current Medications Medication Drug Class(es) Dates Sig (Normalized) Sig (Original) betamethasone 0.5 mg/ml / clotrimazole 10 mg/ml topical cream (14 sources) Azole Antifungal, Corticosteroid Start: 08-20-2023 Clotrimazole-Bet amethasone 1-0.05 % cream Active 0 .ROUTE .COMPLEX 15 August 20, 2023 9:01am APPLY TO AFFECTED AREA TWICE A DAY FOR 10 DAYS Start: 05-18-2023 End: 08-20-2023 Clotrimazole-Betamethasone 1 -0.05 % cream Discontinued 1 APPLIC TOPICAL Twice daily August 19, 2023 11:00pm August 20, 2023 9:01am APPLY TO AFFECTED AREA TWICE A DAY FOR 10 DAYS chlorthalidone 25 mg oral tablet (20 sources) Thiazide-like Diuretic Start: 12-30-2021 End: 05-16-2025 take 1 tablet by mouth once daily Chlorthalidone 25 mg tablet Active 25 MG PO Daily April 19, 2024 12:00am cholecalciferol 0.025 mg oral capsule (3 sources) Vitamin D Start: 04-20-2024 take 1 capsule by mouth once daily Cholecalciferol (Vitamin D3) 25 mcg (1,000 unit) capsule Active 25 MCG PO Daily April 20, 2024 12:00am take 1 capsule by mouth in the m orning cholecalciferol (Vitamin D3) 50 mcg (2,000 unit) capsule Take 1 capsule (50 mcg) by mouth early in the morning.. Active cycloSPORINE 0.5 mg/ml ophthalmic suspension (13 sources) Calcineurin Inhibitor Immunosuppressant Start: 05-18-2024 End: 08-16-2024 take 1 drop(s) into the eye(s) in the morning cycloSPORINE (Restasis) 0.05 % ophthalmic emulsion Indications: Keratoconjunctivitis sicca of both eyes not specified as Sjogren's Administer 1 drop into both eyes in the morning and 1 drop before bedtime. 180 mL 3 05/18/2024 08/16/2024 Active Start: 03-02-2023 take 1 drop(s) into the eye(s) in the morning cycloSPORINE, PF, (Cequa) 0.09 % solution Indications: Keratoconjunctivitis sicca of both eyes not specified as Sjogren's Administer 1 drop into affected eye(s) in the morning and 1 drop before bedtime. 60 each 7 03/02/2023 Active 24 hr dilTIAZem hydrochloride 300 mg extended release oral tablet (20 sources) Calcium Channel Nicole Start: 04-19-2024 take 1 capsule by mouth every twenty-four hours Diltiazem Hcl 300 mg capsule,extended release 24hr Active MG PO April 19, 2024 12:00am Start: 10-21-2022 End: 05-16-2025 take 1 capsule by mouth in the morning, then take 1 capsule by mouth every twenty-four hours dilTIAZem CD (Cardizem CD) 300 MG 24 hr capsule Take 300 mg by mouth in the morning. 10/21/2022 Active Start: 01-31-2022 take 1 capsule by mo [facility] once daily in the morning dilTIAZem HCl [...] mg/ml / timolol 5 mg/ml ophthalmic solution (20 sources) Carbonic Anhydrase Inhibitor, beta-Adrenergic Nicole Start: 01-08-2024 take 1 drop(s) into the eye(s) in the morning Dorzolamide HCl-Timolol Mal PF 2-0.5 % solution Indications: Primary open angle glaucoma (POAG) of both eyes, mild stage (CMS/HCC) Administer 1 drop into both eyes in the morning and 1 drop before bedtime. 180 each 4 01/08/2024 Active Start: 09-30-2022 End: 01-08-2024 Dorzolamide HCl-Timolol Mal PF 2-0.5 % solution INSTILL 1 DROP IN BOTH EYES TWICE A DAY 09/30/2022 01/08/2024 Discontinued (Reorder) Start: 03-28-2021 Dorzolamide HC l-Timolol Mal PF 2-0.5 % Ophthalmic Solution Quantity: 180 Refills: 0 Ordered: 28-Mar-2021 DO Start : 28-Mar-2021 Active take 1 drop(s) into the eye(s) in the morning dorzolamide-timolol, PF, (Cosopt) 2-0.5 % ophthalmic solution PLACE 1 DROP INTO AFFECTED EYE(S) IN THE MORNING AND 1 DROP BEFORE BEDTIME Active 0.8 ml enoxaparin sodium 100 mg/ml prefilled syringe (12 sources) Low Molecular Weight Heparin Enoxaparin Sodium (Lovenox) 80 MG/0.8ML solution prefilled syringe Inject 80 mg under the skin. Active erythromycin 0.005 mg/mg ophthalmic ointment (17 sources) Macrolide, Macrolide Antimicrobial Start: 06-18-2022 End: 05-16-2024 erythromycin (Romycin) 5 MG/GM ophthalmic ointment APPLY [...] DO Active estradiol 0.1 mg/ml vaginal cream (12 sources) Estrogen Start: 09-16-2022 estradiol (Est race) 0.1 MG/GM vaginal cream Insert 2 g into the vagina in the morning. 09/16/2022 Active lisinopril 10 mg oral tablet (20 sources) Angiotensin Converting Enzyme Inhibitor Start: 05-16-2024 take 1 tablet by mouth once daily lisinopril 10 mg tablet Indications: Essential hypertension Take 1 tablet (10 mg) by mouth once daily. 90 tablet 3 05/16/2024 Active Start: 10-20-2022 End: 05-16-2024 take 1 tablet by mouth once daily Lisinopril 10 mg tablet Active 10 MG PO Daily April 19, 2024 12:00am Start: 07-23-2021 take 1 tablet by vance th once daily Lisinopril 10 MG Oral Tablet Take 1 tablet daily Quantity: 90 Refills: 3 Ordered: 29-Sep-2022 Karson Watts MD Start : 23-Jul-2021 Active take 1 tablet by vance th once daily Lisinopril 10 MG Oral Tablet TAKE 1 TABLET DAILY. Quantity: 0 Refills: 0 Ordered: 04-Jun-2021 DO Active loteprednol etabonate 5 mg/ml ophthalmic suspension (16 sources) Start: 10-02-2022 End: 05-16-2024 take 1 drop(s) into the eye(s) three [...] 0 Refills: 0 Ordered: 11-Aug-2022 DO Active 24 hr metFORMIN hydrochloride 500 mg extended release oral tablet (2 sources) Biguanide Start: 05-17-2024 take 1 tablet by mouth once daily Metformin 500 mg tablet extended release 24 hr Active 500 MG PO Daily May 17, 2024 12:00am Start: 07-22-2021 take 1 tablet by vance every twenty-four hours metFORMIN HCl ER 500 MG Oral Tablet Extended Release 24 Hour Quantity: 90 Refills: 0 Ordered: 22-Jul-2021 DO Start : 22-Jul-2021 Complete microencapsulated potassium chloride 20 meq extended release oral tablet (20 sources) Start: 05-16-2024 take 2 tablets by mouth once daily potassium chloride CR (Klor-Con M20) 20 mEq ER tablet Indications: Essential (primary) hypertension Take 2 tablets (40 mEq) by mouth once daily. 180 tablet 3 05/16/2024 Active Start: 08-20-2023 End: 05-16-2024 take 2 tablets by mouth once daily Klor-Con M20 20 mEq ER tablet Indications: Essential (primary) hypertension TAKE 2 TABLETS BY MOUTH EVERY DAY 180 tablet 3 08/20/2023 05/16/2024 Discontinued (Reorder) Start: 08-28-2022 take 2 tablets by mo [facility] in the morning KLOR-CON 20 MEQ ER tablet Take 40 mEq by mouth in the morning. 08/28/2022 Active Start: 11-29-2021 take 2 tablets by mo [facility] once daily Klor-Con M20 20 MEQ Oral Tablet Extended Release take 2 tablets by mouth every day Quantity: 180 Refills: 3 Ordered: 29-Sep-2022 Karson Rush DO Start : 29-Nov-2021 Active End: 09-28-2023 take 1 tablet by mouth twice daily potassium chloride CR 20 mEq ER tablet Take 1 tablet (20 mEq) by mouth 2 times a day. 09/28/2023 Discontinued (Med List Cleanup) take 1 tablet by [facility] twice daily Potassium Chloride ER 20 MEQ Oral Tablet Extended Release Take 1 tablet twice daily Quantity: 0 Refills: 0 Ordered: 04-Jun-2021 DO Active Potassium Chloride (Klor-Con M20) 20 mEq tablet,ER particles/crystals (1 source) Start: 04-19-2024 Potassium Chloride (Klor-Con M20) 20 mEq tablet,ER particles/crystals Active MEQ PO April 19, 2024 12:00am pravastatin sodium 40 mg oral tablet (20 sources) HMG-CoA Reductase Inhibitor Start: 05-16-2024 take 1 tablet by mouth once daily at bedtime pravastatin (Pravachol) 40 mg tablet Indications: Hyperlipidemia, unspecified Take 1 tablet (40 mg) by mouth once daily at bedtime. 90 tablet 3 05/16/2024 Active Start: 11-04-2021 End: 05-16-2024 take 1 tablet by mouth once daily at bedtime Pravastatin 40 mg tablet Active 40 MG PO Daily at bedtime April 19, 2024 12:00am prednisoLONE acetate 10 mg/ml ophthalmic suspension (13 sources) Corticosteroid Start: 04-14-2023 End: 06-15-2023 take 1 drop(s) into the eye(s) three times daily prednisoLONE acetate (Pred-Forte) 1 % ophthalmic suspension Indications: Rce (recurrent corneal erosion), left INSTILL 1 DROP IN LEFT EYE 3 TIMES DAILY 15 mL 5 06/15/2023 Active warfarin sodium 2.5 mg oral tablet (20 sources) Vitamin K Antagonist Start: 04-19-2024 take 1 tablet by mouth once daily Warfarin 2.5 mg tablet Active 2.5 MG PO Daily April 19, 2024 12:00am Start: 06-27-2021 End: 09-28-2023 take 0.5-1 tablets by mouth once daily warfarin (Coumadin) 2.5 mg tablet Indications: Chronic atrial fibrillation (Multi) TAKE 1/2 TO 1 TABLET BY MOUTH DAILY OR DIRECTED BY [facility] 90 tablet 1 08/20/2023 Active Completed/Discontinued Medications Medication Drug Class(es) Dates Sig (Normalized) Sig (Original) gentamicin 3 mg/ml ophthalmic solution (1 source) Start: 11-28-2021 take 2 drop(s) into the eye(s) every four hours Gentamicin Sulfate 0.3 % Ophthalmic Solution PLACE 2 DROPS INTO LEFT EYE EVERY 4 HOURS Quantity: 5 Refills: 0 Ordered: 28-Nov-2021 DO Start : 28-Nov-2021 Complete Vitamin D CAPS (16 sources) Vitamin D CAPS A s directed. Quantity: 0 Refills: 0 Ordered: 04-Jun-2021 DO Active Problems Active Problems Problem Classification Problem Date Documented Date Episodic/Chronic Cardiac dysrhythmias (20 sources) Chronic atrial fibrillation; Translations: [Atrial fibrillation] Onset: 6 Chronic Cardiac dysrhythmias (20 sources) Palpitations; Translations: [Palpitations] Onset: 3 05-18-2023 Episodic Chronic kidney disease (5 sources) Chronic kidney disease stage 3A ; Translations: [Stage 3a chronic kidney disease (Multi)] Onset: 5 05-16-2024 Chronic Chronic kidney disease (2 sources) Chronic kidney disease; Translations: [Chronic kidney disease, stage 3a (Multi)] Onset: 5 Diabetes mellitus with complications (3 sources) Hyperglycemia due to type 2 diabetes mellitus; Translations: [Type 2 diabetes mellitus with hyperglycemia] 04-20-2024 Chronic Diabetes mellitus without complication (15 sources) Type 2 diabetes mellitus without complications; Translations: [Type 2 diabetes mellitus without complication] Onset: 0 05-18-2023 Chronic Disorders of lipid metabolism (20 sources) Hyperlipidemia; Translations: [Other and unspecified hyperlipidemia] Onset: 6 05-18-2023 Chronic Essential hypertension (20 sources) Essential hypertension; Translations: [Unspecified essential hypertension] Onset: 8 Chronic Genitourinary symptoms and ill-defined conditions (1 source) Microalbuminuria; Translations: [Proteinuria, unspecified] 05-16-2024 Episodic Glaucoma (20 sources) Bilateral primary open angle glaucoma; Translations: [Primary open-angle glaucoma, bilateral, stage unspecified] Onset: 8 Resolved: 4 05-18-2023 Chronic Inflammation; infection of eye (except that caused by tuberculosis or sexually transmitteddisease) (14 sources) Keratoconjunctivitis sicca; Translations: [Keratoconjunctivitis sicca, not specified as Sjogren's, bilateral] Onset: 3 11-12-2022 Chronic Inflammation; infection of eye (except that caused by tuberculosis or sexually transmitteddisease) (18 sources) Unspecified conjunctivitis; 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] Onset: 2 Episodic Menopausal disorders (12 sources) Postmenopausal bleeding; Translations: [Postmenopausal bleeding] Onset: 4 05-18-2023 Chronic Mycoses (2 sources) Onychomycosis; Translations: [Tinea unguium] 01-21-2024 Episodic Nutritional deficiencies (2 sources) Vitamin D deficiency; Translations: [Vitamin D deficiency, unspecified] 04-20-2024 Chronic Osteoarthritis (1 source) Osteoarthritis; Translations: [Unspecified osteoarthritis, unspecified site] 10-01-2023 Chronic Other aftercare (16 sources) Anticoagulant effect; Translations: [Long-term (current) use of anticoagulants] Episodic Other aftercare (16 sources) Drug therapy finding; Translations: [Long-term (current) use of other medications] Episodic Other connective tissue disease (2 sources) Pain in left foot; Translations: [Pain in left foot] 01-21-2024 Episodic Other diseases of veins and lymphatics (2 sources) Vascular insufficiency; Translations: [Venous insufficiency (chronic) (peripheral)] 01-21-2024 Episodic Other ear and sense organ disorders (2 sources) Mixed conductive AND sensorineural hearing loss; Translations: [Mixed conductive and sensorineural hearing loss, unilateral, left ear with restricted hearing on the contralateral side] 02-29-2024 Chronic Other eye disorders (15 sources) 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; Translations: [Recurrent erosion of cornea, left eye] Onset: 3 06-15-2023 Episodic Other nutritional; endocrine; and metabolic disorders (9 sources) Obesity; Translations: [Obesity, unspecified] Chronic Other nutritional; endocrine; and metabolic disorders (10 sources) Overweight in adulthood with body mass index of 25 or more but less than 30; Translations: [Overweight] Onset: 5 05-16-2024 Episodic Other nutritional; endocrine; and metabolic disorders (2 sources) Body mass index (BMI) 28.0-28.9, adult; Translations: [Body mass index (BMI) 28.0-28.9, adult] Onset: 5 Episodic Residual codes; unclassified (2 sources) Never smoked tobacco; Translations: [Other specified health status] Onset: 5 05-16-2024 Episodic Residual codes; unclassified (2 sources) Other specified health status; Translations: [Other specified health status] Onset: 5 Episodic Unclassified (3 sources) longterm (current) use of anticoagulants; Translations: [longterm (current) use of anticoagulants] Onset: 9 Unclassified (3 sources) Other longterm (current) drug therapy; 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] Onset: 8 Unclassified (6 sources) Chronic atrial fibrillation, unspecified; Translations: [CHRONIC ATRIAL FIBRILLATION UNSPEC] Onset: 3 Viral infection (2 sources) Verruca plantaris; Translations: [Plantar wart] 01-21-2024 Episodic Past or Other Problems Problem Classification Problem Date Documented Date Episodic/Chronic Other aftercare (12 sources) Long-term current use of anticoagulant; 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] Onset: 07-06-2018 05-18-2023 Episodic Other aftercare (12 sources) Long-term current use of drug therapy; Translations: [Other longterm (current) drug therapy] Onset: 12-09-2017 05-18-2023 Episodic Other connective tissue disease (1 source) Pain of toes of bilateral feet; Translations: [Pain in right toe(s)] 01-21-2024 Episodic Other diseases of veins and lymphatics (12 sources) Peripheral venous insufficiency; Translations: [Venous insufficiency (chronic) (peripheral)] Onset: 05-18-2023 05-18-2023 Episodic Other screening for suspected conditions (not mental disorders or infectious disease) (14 sources) Patient encounter status; Translations: [Encounter for screening mammogram for malignant neoplasm of breast] Onset: 01-13-2018 05-18-2023 Episodic Residual codes; unclassified (12 sources) Family history of malignant neoplasm of liver; Translations: [Family history of malignant neoplasm of digestive organs] Onset: 01-21-2018 05-18-2023 Episodic Residual codes; unclassified (12 sources) Past history of procedure; Translations: [Other specified postprocedural states] Onset: 09-26-2015 05-18-2023 Episodic Unclassified (16 sources) Never smoked tobacco; Translations: [Never a smoker] Unclassified (2 sources) Onset: 09-28-2023 09-28-2023 Results Test Name Value Interpretation Reference Range Facility Perimetry studyon 05-18-[address] [facility] Radiology Study observation (narrative) [facility] Basophils Auto (Bld) [#/Vol] on 04-25-2024 Basophils (Bld) [#/Vol] Automated basophil count 0.0-0.1 [facility] Basophils/100 WBC Auto (Bld) on 04-25-2024 Basophils/100 WBC (Bld) Automated basophil % 0.2-2.0 [facility] Cholesterol in LDL Calc [Mas s/Vol]on 04-25-2024 Cholesterol in LDL [Mass/Vol] Cholesterol in LDL [Mass/volume] in Serum or Plasma by calculation [facility] Comment on above: <100 mg/dl [id number] 0-129 mg/dl NEAR OR ABOVE [id number] mg/dl BORDERLINE FPRE120-440 mg/dl HIGH>190 mg/dl VERY HIGH Cholesterol in VLDL Calc [Ma ss/Vol]on 04-25-2024 Cholesterol in VLDL [Mass/Vol] Cholesterol in VLDL [Mass/volume] in Serum or Plasma by calculation [facility] Eosinophils/100 WBC Auto (Bl d)on 04-25-2024 Eosinophils/100 WBC (Bld) Automated eosinophil % 0.9-7.0 [facility] Erythrocyte distribution wid th Auto (RBC) [Ratio]on 04-25-2024 Erythrocyte distribution width (RBC) [Ratio] Erythrocyte distribution width [Ratio] by Automated count 11.0-15.0 [facility] Estimated glomerular filtrat ion rate (GFR) non- Americanon 04-25-2024 GFR/1.73 sq M.predicted among non-blacks MDRD (S/P/Bld) [Vol rate/Area] Estimated glomerular filtration rate (GFR) non- Low >=60 mL/min/1.73m 2 [facility] Globulin Calc (S) [Mass/Vol] on 04-25-2024 Globulin (S) [Mass/Vol] Serum globulin measurement by calculation (mass/volume) [facility] Glucose mean value [Mass/vol ume] in Blood Estimated from glycated hemoglobinon 04-25-2024 Average glucose Estimated from glycated hemoglobin (Bld) [Mass/Vol] Glucose mean value [Mass/volume] in Blood Estimated from glycated hemoglobin [facility] Hematocrit Auto (Bld) [Volum e fraction]on 04-25-2024 Hematocrit (Bld) [Volume fraction] Hematocrit [Volume Fraction] of Blood by Automated count 36.0-48.0 [facility] Hemoglobin [Mass/volume] in Bloodon 04-25-2024 Hemoglobin (Bld) [Mass/Vol] Hemoglobin [Mass/volume] in Blood 12.0-16.0 [facility] Laboratory - Chemistry and C hemistry - challengeon 04-25-2024 Albumin [Mass/Vol] 4.1 g/dL 3.4-5.0 [facility] ALP [Catalytic activity/Vol] 84 U/L 46-116 [facility] ALT [Catalytic activity/Vol] 21 U/L 14-59 [facility] AST [Catalytic activity/Vol] 20 U/L 15-37 [facility] Bilirubin [Mass/Vol] 0.7 mg/dL 0.2-1.0 [facility] Calcium [Mass/Vol] 9.6 mg/dL 8.5-10.1 [facility] Chloride [Moles/Vol] 97 mmol/L Low 98-107 [facility] Cholesterol [Mass/Vol] 200 mg/dL <=200 [facility] Cholesterol in HDL [Mass/Vol] 61 mg/dL High 40-60 [facility] Comment on above: > or =60 mg/dl - LOW CARDIOVASCULAR RISK<40 mg/dl - HIGH CARDIOVASCULAR RISK CO2 [Moles/Vol] 30.0 mmol/L 21.0-32.0 [facility] Creatinine [Mass/Vol] 1.17 mg/dL High 0.55-1.02 [facility] GFR/1.73 sq M.predicted MDRD (S/P/Bld) [Vol rate/Area] 54 mL/min/{1.73_m2} Low >=60 mL/min/1.73m 2 [facility] Glucose [Mass/Vol] 147 mg/dL High 74-106 [facility] Potassium [Moles/Vol] 3.9 mmol/L 3.5-5.1 [facility] Protein [Mass/Vol] 7.9 g/dL 6.4-8.2 [facility] Sodium [Moles/Vol] 137 mmol/L 136-145 [facility] Triglyceride [Mass/Vol] 147 mg/dL <=150 [facility] Urea nitrogen [Mass/Vol] 20.0 mg/dL High 7.0-18.0 [facility] Urea nitrogen/Creatinine [Mass ratio] 17.1 mg/mg [facility] Laboratory - Hematology and Cell countson 04-25-2024 HbA1c (Bld) [Mass fraction] 7.6 % High 4.5-6.2 [facility] Comment on above: ADA RECOMMENDED LIMI T 4.0 - 6.0ADA THERAPEUTIC TARGET < 7.0ACTION SUGGESTED> 7.0 Immature granulocytes/100 WBC (Bld) 0.4 % 0.0-0.5 [facility] Leukocytes [#/volume] correc patricio for nucleated erythrocytes in Blood by Automated counon 04-25-2024 WBC corrected for nucl RBC Auto (Bld) [#/Vol] Leukocytes [#/volume] corrected for nucleated erythrocytes in Blood by Automated coun 4.0-11.0 [facility] Lymphocytes Auto (Bld) [#/Vo l]on 04-25-2024 Lymphocytes (Bld) [#/Vol] Lymphocytes [#/volume] in Blood by Automated count Low 1.2-3.8 [facility] Lymphocytes/100 WBC Auto (Bl d)on 04-25-2024 Lymphocytes/100 WBC (Bld) Lymphocytes/100 leukocytes in Blood by Automated count Low 20.5-60.0 [facility] MCH Auto (RBC) [Entitic mass ]on 04-25-2024 MCH (RBC) [Entitic mass] MCH [Entitic mass] by Automated count 26.7-34.0 [facility] MCHC Auto (RBC) [Mass/Vol]on 04-25-2024 MCHC (RBC) [Mass/Vol] MCHC [Mass/volume] by Automated count 29.9-35.2 [facility] MCV Auto (RBC) [Entitic vol] on 04-25-2024 MCV (RBC) [Entitic vol] MCV [Entitic volume] by Automated count 81.0-99.0 [facility] Microalbumin [Mass/volume] i n Urineon 04-25-2024 Albumin DL <= 20 mg/L (U) [Mass/Vol] Microalbumin [Mass/volume] in Urine <=30.0 [facility] Monocytes Auto (Bld) [#/Vol] on 04-25-2024 Monocytes (Bld) [#/Vol] Automated blood monocyte count High 0.3-0.8 [facility] Monocytes/100 WBC Auto (Bld) on 04-25-2024 Monocytes/100 WBC (Bld) Automated monocyte % 1.7-12.0 [facility] Neutrophils Auto (Bld) [#/Vo l]on 04-25-2024 Neutrophils (Bld) [#/Vol] Neutrophils [#/volume] in Blood by Automated count High 1.4-6.5 [facility] Neutrophils/100 WBC Auto (Bl d)on 04-25-2024 Neutrophils/100 WBC (Bld) Automated neutrophil % High 43.0-75.0 [facility] No Panel Informationon 04-25 25-Hydroxy Vitamin D Total 31.2 ng/mL [facility] Comment on above: <20 ng/mL Vit D defi cient20-<30 ng/mL Vit D [id number] ng/mL Vit D sufficient>100 ng/mL Potential Toxicity Eosinophils # (Auto) 0.3 10 3/uL 0.0-0.7 [facility] Immature Granulocyte # (Auto) 0.04 10 3/uL High 0.00-0.03 [facility] Urine Random Creatinine 21.34 mg/dL 20.00-300.00 [facility] Platelet mean volume Auto (B ld) [Entitic vol]on 04-25-2024 Platelet mean volume (Bld) [Entitic vol] Platelet mean volume [Entitic volume] in Blood by Automated count Low 9.5-13.5 [facility] Platelets Auto (Bld) [#/Vol] on 04-25-2024 Platelets (Bld) [#/Vol] Platelets [#/volume] in Blood by Automated count 150-450 [facility] RBC Auto (Bld) [#/Vol]on RBC (Bld) [#/Vol] Erythrocytes [#/volume] in Blood by Automated count 4.20-5.40 [facility] Serum or plasma albumin/glob ulin mass ratioon 04-25-2024 Albumin/Globulin [Mass ratio] Serum or plasma albumin/globulin mass ratio [facility] Serum or plasma anion gap de terminationon 04-25-2024 Anion gap [Moles/Vol] Serum or plasma anion gap determination [facility] Serum or plasma total choles terol/high density lipoprotein (HDL) cholesterol mass royal 04-25-2024 Cholesterol.total/Ch olesterol in HDL [Mass ratio] Serum or plasma total cholesterol/high density lipoprotein (HDL) cholesterol mass rat [facility] Comment on above: 3.3 - 4.4 LOW RISK4. 4 - 7.1 AVERAGE RISK7.1 - 11.0 MODERATE RISK>11.0 HIGH RISK Urine microalbumin/creatinin e mass ratioon 04-25-2024 Albumin/Creatinine DL <= 20 mg/L (U) [Mass ratio] Urine microalbumin/creatinin e mass ratio High 0.0-29.9 [facility] Comment on above: NO MICROALBUMINURIA 0-29 MG/GCLINICAL MICROALBUMINURIA 30-300 MG/GMACROALBUMINURIA >300 MG/G Ophthalmic OCT panelon 01-07 [facility] Right Eye Images reviewed and comparison made to baseline, Images reviewed. To assess optic nerve function and for use in future follow-up. Reliability: good and adequate. Left Eye Images reviewed and comparison made to baseline, Images reviewed. To assess optic nerve function and for use in future follow-up. Reliability: borderline. 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 Stable. [facility] Radiology Study observation (narrative) [facility] MR BRAIN W AND WO CONTRAST ( [...] INR Coag (Bld) [Relative time] 4.26 {INR} -[facility] 250 DO Work Phone: PROTIMEon 10-07-2022 INR Coag (PPP) [Relative time] 4.26 {INR} Critically high [facility] Comment on above: Performed By: #### P T #### [facility] [address] [address] [address] Marilee Olmos INR GUIDELINES SEE BELOW Normal [facility] Comment on above: Result Comment: SARIKA RED INR: 2.0 - 3.0 CONDITIONS NOT LISTED BELOW 2.5 - 3.5 FOR PROSTHETIC HEART VALVE REPLACEMENT 2.5 - 3.5 RECURRENT THROMBOSIS Performed By: #### P T #### [facility] [address] [place] [address] Dr. Marilee Olmos PT Coag (PPP) [Time] 41.6 s Critically high 9.0-11.6 [facility] Comment on above: Performed By: #### P T #### [facility] [address] [place] [address] Dr. Marilee Olmos Tobacco Screening.on 023 Adult depression screening assessment No [facility] 250 DO Work Phone: Fall risk assessment a) No falls within the last year [place] [address] DO Work Phone: Tobacco use status [facility] b) No [facility] [address] DO Work Phone: Laboratory - Coagulationon 0 09-11-2022 INR Coag (Bld) [Relative time] 2.94 {INR} [facility] 250 DO Work Phone: PROTIMEon 09-11-2022 INR Coag (PPP) [Relative time] 2.94 {INR} Normal [facility] Comment on above: Performed By: #### P T #### [facility] [address] [place] [address] Dr. Marilee Olmos INR GUIDELINES SEE BELOW Normal [facility] Comment on above: Result Comment: SARIKA RED INR: 2.0 - 3.0 CONDITIONS NOT LISTED BELOW 2.5 - 3.5 FOR PROSTHETIC HEART VALVE REPLACEMENT 2.5 - 3.5 RECURRENT THROMBOSIS Performed By: #### P T #### [facility] [address] [place] [address] Dr. Marilee Olmos PT Coag (PPP) [Time] 29.3 s Critically high 9.0-11.6 [facility] Comment on above: Performed By: #### P T #### [facility] [address] [address] [address] Marilee Olmos PROTIMEon 08-27-2022 INR Coag (PPP) [Relative time] 4.17 {INR} Critically high [facility] Comment on above: Performed By: #### P T #### [facility] [address] [place] [address] Dr. Marilee Olmos INR GUIDELINES SEE BELOW Normal [facility] Comment on above: Result Comment: SARIKA RED INR: 2.0 - 3.0 CONDITIONS NOT LISTED BELOW 2.5 - 3.5 FOR PROSTHETIC HEART VALVE REPLACEMENT 2.5 - 3.5 RECURRENT THROMBOSIS Performed By: #### P T #### [facility] [address] [place] [address] Dr. Marilee Olmos PT Coag (PPP) [Time] 40.8 s Critically high 9.0-11.6 [facility] Comment on above: Performed By: #### P T #### [facility] [address] [place] [address] Dr. Marilee Olmos PROTIMEiris 08-14-2022 INR Coag (PPP) [Relative time] 2.46 {INR} Normal [facility] Comment on above: Performed By: #### P T #### [facility] [address] [place] [address] Dr. Marilee Olmos INR GUIDELINES SEE BELOW Normal [facility] Comment on above: Result Comment: SARIKA RED INR: 2.0 - 3.0 CONDITIONS NOT LISTED BELOW 2.5 - 3.5 FOR PROSTHETIC HEART VALVE REPLACEMENT 2.5 - 3.5 RECURRENT THROMBOSIS Performed By: #### P T #### [facility] [address] [place] [address] Dr. Marilee Olmos PT Coag (PPP) [Time] 24.8 s Critically high 9.0-11.6 [facility] Comment on above: Performed By: #### P T #### [facility] [address] [place] [address] Dr. Marilee Olmos PROTIMEon 08-11-2022 INR Coag (PPP) [Relative time] 4.68 {INR} Critically high [facility] Comment on above: Performed By: #### P T #### [facility] [address] [place] [address] Dr. Marilee Olmos INR GUIDELINES SEE BELOW Normal [facility] Comment on above: Result Comment: SARIKA RED INR: 2.0 - 3.0 CONDITIONS NOT LISTED BELOW 2.5 - 3.5 FOR PROSTHETIC HEART VALVE REPLACEMENT 2.5 - 3.5 RECURRENT THROMBOSIS Performed By: #### P T #### [facility] [address] [place] [address] Dr. Marilee Olmos PT Coag (PPP) [Time] 45.5 s Critically high 9.0-11.6 [facility] Comment on above: Performed By: #### P T #### [facility] [address] [place] [address] Dr. Marilee Olmos PROTIMEon 07-30-2022 INR Coag (PPP) [Relative time] 4.08 {INR} Normal [facility] Comment on above: Performed By: #### P T #### [facility] [address] [place] [address] Dr. Marilee Olmos INR GUIDELINES SEE BELOW Normal [facility] Comment on above: Result Comment: SARIKA RED INR: 2.0 - 3.0 CONDITIONS NOT LISTED BELOW 2.5 - 3.5 FOR PROSTHETIC HEART VALVE REPLACEMENT 2.5 - 3.5 RECURRENT THROMBOSIS Performed By: #### P T #### [facility] [address] [place] [address] Dr. Marilee Olmos PT Coag (PPP) [Time] 39.9 s Critically high 9.0-11.6 [facility] Comment on above: Performed By: #### P T #### [facility] [address] [place] [address] Dr. Marilee Olmos Laboratory - Coagulationon 0 07-08-2022 INR Coag (Bld) [Relative time] 3.22 {INR} [facility] 250 DO Work Phone: PROTIMEon 07-08-2022 INR Coag (PPP) [Relative time] 3.33 {INR} Normal [facility] Comment on above: Performed By: #### P T #### [facility] [address] [place] [address] Dr. Marilee Olmos INR GUIDELINES SEE BELOW Normal [facility] Comment on above: Result Comment: SARIKA RED INR: 2.0 - 3.0 CONDITIONS NOT LISTED BELOW 2.5 - 3.5 FOR PROSTHETIC HEART VALVE REPLACEMENT 2.5 - 3.5 RECURRENT THROMBOSIS Performed By: #### P T #### [facility] [address] [place] [address] Dr. Marilee Olmos PT Coag (PPP) [Time] 33.0 s Critically high 9.0-11.6 [facility] Comment on above: Performed By: #### P T #### [facility] [address] [place] [address] Dr. Marilee Olmos PROTIMEon 06-18-2022 INR Coag (PPP) [Relative time] 3.22 {INR} Normal [facility] Comment on above: Performed By: #### P T #### [facility] [address] [place] [address] Dr. Marilee Olmos INR GUIDELINES SEE BELOW Normal [facility] Comment on above: Result Comment: SARIKA RED INR: 2.0 - 3.0 CONDITIONS NOT LISTED BELOW 2.5 - 3.5 FOR PROSTHETIC HEART VALVE REPLACEMENT 2.5 - 3.5 RECURRENT THROMBOSIS Performed By: #### P T #### [facility] [address] [place] [address] Dr. Marilee Olmos PT Coag (PPP) [Time] 31.9 s Critically high 9.0-11.6 [facility] Comment on above: Performed By: #### P T #### [facility] [address] [place] [address] Dr. Marilee Olmos PROTIMEon 06-09-2022 INR Coag (PPP) [Relative time] 3.40 {INR} Normal [facility] Comment on above: Performed By: #### P T #### [facility] [address] [place] [address] Dr. Marilee Olmos INR GUIDELINES SEE BELOW Normal [facility] Comment on above: Result Comment: SARIKA RED INR: 2.0 - 3.0 CONDITIONS NOT LISTED BELOW 2.5 - 3.5 FOR PROSTHETIC HEART VALVE REPLACEMENT 2.5 - 3.5 RECURRENT THROMBOSIS Performed By: #### P T #### [facility] [address] [place] [address] Dr. Marilee Olmos PT Coag (PPP) [Time] 33.6 s Critically high 9.0-11.6 [facility] Comment on above: Performed By: #### P T #### [facility] [address] [place] [address] Dr. Marilee Olmos PROTIMEon 05-19-2022 INR Coag (PPP) [Relative time] 3.00 {INR} Normal [facility] Comment on above: Performed By: #### P T #### [facility] [address] [place] [address] Dr. Marilee Olmos INR GUIDELINES SEE BELOW Normal [facility] Comment on above: Result Comment: SARIKA RED INR: 2.0 - 3.0 CONDITIONS NOT LISTED BELOW 2.5 - 3.5 FOR PROSTHETIC HEART VALVE REPLACEMENT 2.5 - 3.5 RECURRENT THROMBOSIS Performed By: #### P T #### [facility] [address] [place] [address] Dr. Marilee Olmos PT Coag (PPP) [Time] 30.2 s Critically high 9.0-11.6 [facility] Comment on above: Performed By: #### P T #### [facility] [address] [place] [address] Dr. Marilee Olmos PROTIMEon 04-28-2022 INR Coag (PPP) [Relative time] 3.12 {INR} Normal [facility] Comment on above: Performed By: #### P T #### [facility] [address] [place] [address] Dr. Marilee Olmos INR GUIDELINES SEE BELOW Normal [facility] Comment on above: Result Comment: SARIKA RED INR: 2.0 - 3.0 CONDITIONS NOT LISTED BELOW 2.5 - 3.5 FOR PROSTHETIC HEART VALVE REPLACEMENT 2.5 - 3.5 RECURRENT THROMBOSIS Performed By: #### P T #### [facility] [address] [place] [address] Dr. Marilee Olmos PT Coag (PPP) [Time] 31.3 s Critically high 9.0-11.6 [facility] Comment on above: Performed By: #### P T #### [facility] [address] [place] [address] Dr. Marilee Olmos PROTIMEon 03-26-2022 INR Coag (PPP) [Relative time] 2.93 {INR} Normal [facility] Comment on above: Performed By: #### P T #### [facility] [address] [place] [address] Dr. Marilee Olmos INR GUIDELINES SEE BELOW Normal [facility] Comment on above: Result Comment: SARIKA RED INR: 2.0 - 3.0 CONDITIONS NOT LISTED BELOW 2.5 - 3.5 FOR PROSTHETIC HEART VALVE REPLACEMENT 2.5 - 3.5 RECURRENT THROMBOSIS Performed By: #### P T #### [facility] [address] [place] [address] Dr. Marilee Olmos PT Coag (PPP) [Time] 29.5 s Critically high 9.0-11.6 [facility] Comment on above: Performed By: #### P T #### [facility] [address] [place] [address] Dr. Marilee Olmos CBC AUTO DIFFon 03-17-2022 BASO # 0.1 103/ul Normal 0.0-0.1 [facility] Comment on above: Performed By: #### P T #### [facility] [address] [place] [address] Dr. Marilee Olmos Basophils/100 WBC (Bld) 1.5 % Normal 0.2-2.0 [facility] Comment on above: Performed By: #### P T #### [facility] [address] [place] [address] Dr. Marilee Olmos EO # 0.2 103/ul Normal 0.0-0.7 [facility] Comment on above: Performed By: #### P T #### [facility] [address] [place] [address] Dr. Marilee Olmos Eosinophils/100 WBC (Bld) 2.9 % Normal 0.9-7.0 [facility] Comment on above: Performed By: #### P T #### [facility] [address] [place] [address] Dr. Marilee Olmos Erythrocyte distribution width (RBC) [Ratio] 13.2 % Normal 11.0-15.0 [facility] Comment on above: Performed By: #### P T #### [facility] [address] [place] [address] Dr. Marilee Olmos Hematocrit (Bld) [Volume fraction] 40.0 % Normal 36.0-48.0 [facility] Comment on above: Performed By: #### P T #### [facility] [address] [place] [address] Dr. Marilee Olmos Hemoglobin (Bld) [Mass/Vol] 13.2 g/dL Normal 12.0-16.0 [facility] Comment on above: Performed By: #### P T #### [facility] [address] [place] [address] Dr. Marilee Olmos IG # 0.04 10e3/ul Critically high 0.00-0.03 [facility] Comment on above: Performed By: #### P T #### [facility] [address] [place] [address] Dr. Marilee Olmos IG % 0.5 % Normal 0.0-0.5 [facility] Comment on above: Performed By: #### P T #### [facility] [address] [place] [address] Dr. Marilee Olmos LYMPH # 1.1 103/ul Critically low 1.2-3.8 [facility] Comment on above: Performed By: #### P T #### [facility] [address] [place] [address] Dr. Marilee Olmos Lymphocytes/100 WBC (Bld) 13.7 % Critically low 20.5-60.0 [facility] Comment on above: Performed By: #### P T #### [facility] [address] [place] [address] Dr. Marilee Olmos MANUAL DIFF REQ NO Normal [facility] Comment on above: Performed By: #### P T #### [facility] [address] [place] [address] Dr. Marilee Olmos MCH (RBC) [Entitic mass] 30.5 pg Normal 26.7-34.0 [facility] Comment on above: Performed By: #### P T #### [facility] [address] [place] [address] Dr. Marilee Olmos MCHC (RBC) [Mass/Vol] 33.0 g/dL Normal 29.9-35.2 [facility] Comment on above: Performed By: #### P T #### [facility] [address] [place] [address] Dr. Marilee Olmos MCV (RBC) [Entitic vol] 92.4 fL Normal 81.0-99.0 [facility] Comment on above: Performed By: #### P T #### [facility] [address] [place] [address] Dr. Marilee Olmos MONO # 0.8 103/ul Normal 0.3-0.8 [facility] Comment on above: Performed By: #### P T #### [facility] [address] [place] [address] Dr. Marilee Olmos Monocytes/100 WBC (Bld) 10.2 % Normal 1.7-12.0 [facility] Comment on above: Performed By: #### P T #### [facility] [address] [place] [address] Dr. Marilee Olmos NEUT # 5.7 103/ul Normal 1.4-6.5 [facility] Comment on above: Performed By: #### P T #### [facility] [address] [place] [address] Dr. Marilee Olmos Neutrophils/100 WBC (Bld) 71.2 % Normal 43.0-75.0 [facility] Comment on above: Performed By: #### P T #### [facility] [address] [place] [address] Dr. Marilee Olmos Platelet mean volume (Bld) [Entitic vol] 10.5 fL Normal 9.5-13.5 [facility] Comment on above: Performed By: #### P T #### [facility] [address] [place] [address] Dr. Marilee Olmos PLT 384 103/ul Normal 150-450 [facility] Comment on above: Performed By: #### P T #### [facility] [address] [place] [address] Dr. Marilee Olmos RBC 4.33 106/ul Normal 4.20-5.40 [facility] Comment on above: Performed By: #### P T #### [facility] [address] [place] [address] Dr. Marilee Olmos WBC 8.0 103/ul Normal 4.0-11.0 [facility] Comment on above: Performed By: #### P T #### [facility] [address] [place] [address] Dr. Marilee Olmos GLYCOHEMOGLOBIN A1Con 2021 ADA RECOMMENDATION SEE BELOW Normal [facility] Comment on above: Result Comment: ADA RECOMMENDED LIMIT 4.0 - 6.0 ADA THERAPEUTIC TARGET < 7.0 ACTION SUGGESTED > 7.0 Performed By: #### A 1C #### [facility] [address] [place] [address] Dr. Marilee Olmos Glucose [Mass/Vol] 171 mg/dL Normal [facility] Comment on above: Performed By: #### A 1C #### [facility] [address] [place] [address] Dr. Marilee Olmos HbA1c (Bld) [Mass fraction] 7.6 % Critically high 4.5-6.2 [facility] Comment on above: Performed By: #### A 1C #### [facility] [address] [place] [address] Dr. Marilee Olmos LIPID PROFILEon 03-17-2022 CHOL-HDL RATIO NORM SEE BELOW Normal [facility] Comment on above: Result Comment: 3.3 - 4.4 LOW RISK 4.4 - 7.1 AVERAGE RISK 7.1 - 11.0 MODERATE RISK >11.0 HIGH RISK Performed By: #### P T #### [facility] [address] [address] [address] Marilee Olmos Cholesterol [Mass/Vol] 170 mg/dL Normal <=200 [facility] Comment on above: Performed By: #### P T #### [facility] [address] [address] [address] Marilee Olmos Cholesterol in HDL [Mass/Vol] 52 mg/dL Normal 40-60 [facility] Comment on above: Performed By: #### P T #### [facility] [address] [address] [address] Marilee Olmos Cholesterol in LDL [Mass/Vol] 94.6 mg/dL Normal [facility] Comment on above: Performed By: #### P T #### [facility] [address] [place] [address] Dr. Marilee Olmos Cholesterol.total/Ch olesterol in HDL [Mass ratio] 3.3 {ratio} Normal [facility] Comment on above: Performed By: #### P T #### [facility] [address] [address] [address] Marilee Olmos HDL NORMAL > or = 60 mg/dl - LO W CARDIOVASCULAR RISK <40 mg/dl - HIGH CARDIOVASCULAR RISK Normal [facility] Comment on above: Performed By: #### P T #### [facility] [address] [address] [address] Marilee Olmos LDL CALC NORMAL SEE BELOW Normal [facility] Comment on above: Result Comment: <100 mg/dl OPTIMAL 100 - 129 mg/dl NEAR OR ABOVE OPTIMAL 130 - 159 mg/dl BORDERLINE HIGH 160 - 189 mg/dl HIGH >190 mg/dl VERY HIGH Performed By: #### P T #### [facility] [address] [address] [address] Marilee Olmos Triglyceride [Mass/Vol] 117 mg/dL Normal <=150 [facility] Comment on above: Performed By: #### P T #### [facility] [address] [address] [address] Marilee Olmos VLDL CALC 23.4 mg/dL Normal [facility] Comment on above: Performed By: #### P T #### [facility] [address] [place] [address] Dr. Marilee Olmos MICROALBUMIN, RAND URon 11-0 mALB 4.6 mg/L Normal <=30.0 [facility] Comment on above: Performed By: #### M ALBR #### [facility] [address] [place] [address] Dr. Marilee Olmos PROF 14(COMP METB)on 022 Albumin [Mass/Vol] 4.0 g/dL Normal 3.4-5.0 [facility] Comment on above: Performed By: #### P T #### [facility] [address] [place] [address] Dr. Marilee Olmos Albumin/Globulin [Mass ratio] 1.1 {ratio} Normal [facility] Comment on above: Performed By: #### P T #### [facility] [address] [place] [address] Dr. Marilee Olmos ALP [Catalytic activity/Vol] 81 U/L Normal 46-116 [facility] Comment on above: Performed By: #### P T #### [facility] [address] [place] [address] Dr. Marilee Olmos ALT [Catalytic activity/Vol] 16 U/L Normal 14-59 [facility] Comment on above: Performed By: #### P T #### [facility] [address] [place] [address] Dr. Marilee Olmos Anion gap [Moles/Vol] 10.2 mmol/L Normal [facility] Comment on above: Performed By: #### P T #### [facility] [address] [place] [address] Dr. Marilee Olmos AST [Catalytic activity/Vol] 13 U/L Critically low 15-37 [facility] Comment on above: Performed By: #### P T #### [facility] [address] [place] [address] Dr. Marilee Olmos Bilirubin [Mass/Vol] 0.5 mg/dL Normal 0.2-1.0 [facility] Comment on above: Performed By: #### P T #### [facility] [address] [address] [address] Marilee Olmos Calcium [Mass/Vol] 9.5 mg/dL Normal 8.5-10.1 [facility] Comment on above: Performed By: #### P T #### [facility] [address] [address] [address] Marilee Olmos Chloride [Moles/Vol] 98 mmol/L Normal 98-107 [facility] Comment on above: Performed By: #### P T #### [facility] [address] [address] [address] Marilee Olmos CO2 [Moles/Vol] 29.7 mmol/L Normal 21.0-32.0 [facility] Comment on above: Performed By: #### P T #### [facility] [address] [place] [address] Dr. Marilee Olmos Creatinine [Mass/Vol] 0.97 mg/dL Normal 0.55-1.02 [facility] Comment on above: Performed By: #### P T #### [facility] [address] [place] [address] Dr. Marilee Olmos EGFR-AF MAURITANIAN >60 Normal >=60 [facility] Comment on above: Performed By: #### P T #### [facility] [address] [address] [address] Marilee Olmos EGFR-NON AF MAURITANIAN 56 mL/min/1.73m2 Critically low >=60 [facility] Comment on above: Performed By: #### P T #### [facility] [address] [address] [address] Marilee Olmos Globulin (S) [Mass/Vol] 3.8 g/dL Normal [facility] Comment on above: Performed By: #### P T #### [facility] [address] [place] [address] Dr. Marilee Olmos Glucose [Mass/Vol] 151 mg/dL Critically high 74-106 [facility] Comment on above: Performed By: #### P T #### [facility] [address] [address] [address] Marilee Olmos Potassium [Moles/Vol] 3.9 mmol/L Normal 3.5-5.1 [facility] Comment on above: Performed By: #### P T #### [facility] [address] [address] [address] Marilee Olmos Protein [Mass/Vol] 7.8 g/dL Normal 6.4-8.2 [facility] Comment on above: Performed By: #### P T #### [facility] [address] [address] [address] Marilee Olmos Sodium [Moles/Vol] 134 mmol/L Critically low 136-145 [facility] Comment on above: Performed By: #### P T #### [facility] [address] [address] [address] Marilee Olmos Urea nitrogen [Mass/Vol] 21.0 mg/dL Critically high 7.0-18.0 [facility] Comment on above: Performed By: #### P T #### [facility] [address] [address] [address] Marilee Olmos Urea nitrogen/Creatinine [Mass ratio] 21.6 mg/mg Normal [facility] Comment on above: Performed By: #### P T #### [facility] [address] [address] [address] Marilee Olmos Laboratory - Coagulationon 1 INR Coag (Bld) [Relative time] 2.60 {INR} [place] [address] DO Work Phone: PROTIMEon 02-26-2022 INR Coag (PPP) [Relative time] 2.60 {INR} Normal [facility] Comment on above: Performed By: #### P T #### [facility] [address] [place] [address] Dr. Marilee Olmos INR GUIDELINES SEE BELOW Normal [facility] Comment on above: Result Comment: SARIKA RED INR: 2.0 - 3.0 CONDITIONS NOT LISTED BELOW 2.5 - 3.5 FOR PROSTHETIC HEART VALVE REPLACEMENT 2.5 - 3.5 RECURRENT THROMBOSIS Performed By: #### P T #### [facility] [id number] Marilee Olmos PT Coag (PPP) [Time] 26.4 s Critically high 9.0-11.6 [facility] Comment on above: Performed By: #### P T #### [facility] [id number] Marilee Olmos Office Visit (Cardiology)on 02-12-2022 [...] Weight Tips; Status:Complete - Retrospective Authorization; Done: [id number] Some eating tips that can help you lose weight.; Status:Complete - Retrospective Authorization; Done: [id number] SocHx: Never a smoker Tobacco Use Screening; Status:Complete; Done: [id number] Patient Instructions Please bring all medicines, vitamins, [...] TABLET BY MOUTH DAILY OR DIRECTED BY [facility] Patient did not bring medication list or [...] LYRIC JUAREZ; : 1945; Recorded: 12Feb2022 04:38PMRecorded: 12Feb2022 03:13PMRecorded: 01Dgu6330 02:46PM Heart Rate60, R Budppi84, R Radial Ckvoppfq910, RUE, Czmpsgwj831, LUE, Mqnmqwy641, RUE, Sitting Urwrlbbox81, RUE, Wwzbiukp54, LUE, Gzomder24, RUE, Sitting (more content not included)... Normal [employer] Tobacco Screening.on 022 Adult depression screening assessment Yes [facility] [employer] DO Work Phone: Adult depression screening assessment No [facility] [employer] [facility] DO Work Phone: Fall risk assessment a) No falls within the last year [facility] [employer] DO Work Phone: Tobacco use status CPHS b) No [facility] [employer] DO Work Phone: Laboratory - Coagulationon 1 INR Coag (Bld) [Relative time] 2.40 {INR} [facility] [employer] DO Work Phone: PROTIMEon 02-06-2022 INR Coag (PPP) [Relative time] 2.40 {INR} Normal [facility] Comment on above: Performed By: #### P T #### [facility] [address] [place] [address] Dr. Marilee Olmos INR GUIDELINES SEE BELOW Normal [facility] Comment on above: Result Comment: SARIKA RED INR: 2.0 - 3.0 CONDITIONS NOT LISTED BELOW 2.5 - 3.5 FOR PROSTHETIC HEART VALVE REPLACEMENT 2.5 - 3.5 RECURRENT THROMBOSIS Performed By: #### P T #### [facility] [address] [place] [address] Dr. Marilee Olmos PT Coag (PPP) [Time] 24.5 s Critically high 9.0-11.6 [facility] Comment on above: Performed By: #### P T #### [facility] [address] [place] [address] Dr. Marilee Olmos Laboratory - Coagulationon 0 01-22-2022 INR Coag (Bld) [Relative time] 3.70 {INR} [place] [address] DO Work Phone: PROTIMEon 01-22-2022 INR Coag (PPP) [Relative time] 3.70 {INR} Normal [facility] Comment on above: Performed By: #### P T #### [facility] [address] [place] [address] Dr. Marilee Olmos INR GUIDELINES SEE BELOW Normal [facility] Comment on above: Result Comment: SARIKA RED INR: 2.0 - 3.0 CONDITIONS NOT LISTED BELOW 2.5 - 3.5 FOR PROSTHETIC HEART VALVE REPLACEMENT 2.5 - 3.5 RECURRENT THROMBOSIS Performed By: #### P T #### [facility] [address] [place] [address] Dr. Marilee Olmos PT Coag (PPP) [Time] 36.7 s Critically high 9.0-11.6 [facility] Comment on above: Performed By: #### P T #### [facility] [address] [place] [address] Dr. Marilee Olmos PROTIMEon 12-24-2021 INR Coag (PPP) [Relative time] 2.79 {INR} Normal [facility] Comment on above: Performed By: #### P T #### [facility] [address] [place] [address] Dr. Marilee Olmos INR GUIDELINES SEE BELOW Normal [facility] Comment on above: Result Comment: SARIKA RED INR: 2.0 - 3.0 CONDITIONS NOT LISTED BELOW 2.5 - 3.5 FOR PROSTHETIC HEART VALVE REPLACEMENT 2.5 - 3.5 RECURRENT THROMBOSIS Performed By: #### P T #### [facility] [address] [place] [address] Dr. Marilee Olmos PT Coag (PPP) [Time] 28.2 s Critically high 9.0-11.6 [facility] Comment on above: Performed By: #### P T #### [facility] [address] [place] [address] Dr. Marilee Olmos Laboratory - Coagulationon 0 11-27-2021 INR Coag (Bld) [Relative time] 2.67 {INR} [place] [address] DO Work Phone: PROTIMEon 11-27-2021 INR Coag (PPP) [Relative time] 2.67 {INR} Normal [facility] Comment on above: Performed By: #### P T #### [facility] [address] [place] [address] Dr. Marilee Olmos INR GUIDELINES SEE BELOW Normal [facility] Comment on above: Result Comment: SARIKA RED INR: 2.0 - 3.0 CONDITIONS NOT LISTED BELOW 2.5 - 3.5 FOR PROSTHETIC HEART VALVE REPLACEMENT 2.5 - 3.5 RECURRENT THROMBOSIS Performed By: #### P T #### [facility] [address] [place] [address] Dr. Marilee Olmos PT Coag (PPP) [Time] 27.0 s Critically high 9.0-11.6 [facility] Comment on above: Performed By: #### P T #### [facility] [address] [place] [address] Dr. Marilee Olmos Laboratory - Coagulationon 0 11-06-2021 INR Coag (Bld) [Relative time] 2.79 {INR} [facility] [employer] DO Work Phone: PROTIMEon 11-06-2021 INR Coag (PPP) [Relative time] 2.79 {INR} Normal [facility] Comment on above: Performed By: #### P T #### [facility] [address] [place] [address] Dr. Marilee Olmos INR GUIDELINES SEE BELOW Normal [facility] Comment on above: Result Comment: SARIKA RED INR: 2.0 - 3.0 CONDITIONS NOT LISTED BELOW 2.5 - 3.5 FOR PROSTHETIC HEART VALVE REPLACEMENT 2.5 - 3.5 RECURRENT THROMBOSIS Performed By: #### P T #### [facility] [address] [place] [address] Dr. Marilee Olmos PT Coag (PPP) [Time] 28.2 s Critically high 9.0-11.6 [facility] Comment on above: Performed By: #### P T #### [facility] [address] [place] [address] Dr. Marilee Olmos Laboratory - Coagulationon 0 10-16-2021 INR Coag (Bld) [Relative time] 3.10 {INR} [facility] 250 DO Work Phone: Laboratory - Coagulationon 0 07-25-2021 INR Coag (Bld) [Relative time] 3.42 {INR} [facility] 600 DO Work Phone: Laboratory - Coagulationon 0 06-26-2021 INR Coag (Bld) [Relative time] 3.7 {INR} [facility] 250 DO Work Phone: Laboratory - Coagulationon 0 06-06-2021 INR Coag (Bld) [Relative time] 3.57 {INR} [facility] 250 DO Work Phone: Office Visit (Cardiology)on [...] Patient Instructions By signing my name below, IDione LPN ,Rohit, attest that this documentation has been prepared under the direction and in the presence of Dr. Karson Watts MD. All medical record entries made by the Rohit were at my direction and personally dictated [...] 1 TABLET DAILY. DilTIAZem CD 300 MG SR88LNDE 1 CAPSULE Daily Lisinopril 10 MG Oral TabletTAKE 1 TABLET DAILY. Potassium Chloride ER 20 MEQ Oral Tablet Extended ReleaseTake 1 tablet twice daily Pravastatin Sodium 40 MG Oral TabletTAKE 1 TABLET DAILY. Vitamin D CAPSAs directed. Warfarin Sodium 2.5 MG Oral TabletTake 1 - 2 tablets daily as directed by [facility] Patient did not bring medication list or [...] Recorded: 04Jun2021 10:35AMRecorded: 04Jun2021 10:00AMRecorded: 04Jun2021 09:58AM Vstbfghk103, LUE, Iijhkfi067, RUE, Pscxmsc356, LUE, Sitting Ipalazrno70, LUE, Tlmqamr10, RUE, Arofwyh598, LUE, Sitting Heart Rate84, L Brachial Ar (more content not included)... Normal [facility] Tobacco Screening.on 022 Fall risk assessment a) No falls within the last year [facility] 250 DO Work Phone: Tobacco use status CPHS b) No [facility] [employer] 250 DO Work Phone: Laboratory - Coagulationon 1 INR Coag (Bld) [Relative time] 2.52 {INR} [facility] [employer] 250 DO Work Phone: Laboratory - Coagulationon 0 02-07-2021 INR Coag (Bld) [Relative time] 2.6 {INR} [facility] [employer] 250 DO Work Phone: ANES Hector 07-12-2020 ANES POST HNO ID: [id number] Author: Luis Locke Service: Anesthesiology Author Type: [...] 12, 2020 TIME: 4:37 PM PAGER/CONTACT #: [phone] Normal [facility] Eye Culture and Smron 2020 Eye Culture and Smr Sp. Request/Comment: - Specimen received in sterile container. Smear Result - No organisms seen No Polymorphonuclear Leukocytes Culture Result - No growth 14 days Normal [facility] Comment on above: Performed By: #### E YECSM #### [facility] [address] [id number] OPERATIVE NOon 07-12-2020 OPERATIVE NO HNO ID: [id number] Author: Chi Faustin Service: Ophthalmology Author Type: Physician Type: Operative Report Filed: 07/12/2020 2:40 PM Note Text: OPERATIVE REPORT NAME: Lyric Juarez LOG ID: [id number] SURGERY DATE: 07/12/2020 INCISION/PROCEDURE START TIME: 1:57 [...] Implant Name Type Inv. Item Serial No. Salon Manager Lot No. [id number] Model Num No. Used IMP CORNEA LAMELLAR 9MM1/2MOON - [id number] Cornea IMP CORNEA LAMELLAR 9MM1/2MOON [id number] OTHER Right [id number] ESTIMATED BLOOD LOSS: Minimal COMPLICATIONS: None DRAINS: None SPECIMENS: None I/primary surgeon/proceduralist performed the entire procedure. Chi Faustin M.D. Normal [facility] CNOVon 07-10-2020 CNOV Office Visit (IMOPMN ) LYRIC JUAREZ ([id number]) 1945 F Date Time Provider Department 07/10/20 10:00 AM LIZETH TUTTLE (MARIAH) IMOPMN During your visit today, we recorded the following information about you: Temperature Pulse Blood pressure Weight 97.6 degrees 112/minute 141/85 81.6 kg Height 1.676 m PRISCA Ospina, [employer] 07/10/2020 9:36 AM Signed Consulted by: DR. [...] further concerns to be discussed by provider. Adrian Murphy PA-C 07/10/2020 9:57 AM Signed [facility] Patient Instructions for Surgery FOOD INSTRUCTIONS: [...] anesthesia, you must have a responsible adult truck driver supervisor take you home, and be with you after surgery. You may use a ride service such as Lyft, Uber, or [employer] as long as you have a responsible adult accompanying you and taking responsibility for you. We strongly recommend a reliable adult stays with you overnight to help take care of you. If you have any questions or concerns regarding today's visit please do not hesitate to contact the [facility] center at [phone] or [phone], ext [phone]. Signature: Lizeth Ramsey PA-C Date: July 10, 2020 Lizeth Ramsey PA-C 07/10/2020 2:32 PM Signed HISTORY AND PHYSICAL EXAMINATION (IMPACT) SERVICE DATE: 07/10/2020 SERVICE TIME: 8:14 AM PRIMARY CARE PHYSICIAN: eFlipe Johnson MD CHIEF COMPLAINT/HISTORY OF PRESENT ILLNESS: [...] FEMTO OS - REVISE EYE SHUNT Right (more content not included)... Normal [facility] HISTORY PHYSICALon HISTORY PHYSICAL HNO ID: [id number] Author: Lizeth Velázquez) Andrea Service: ? Author Type: Physician Bulk Station Agent Type: HANDP Filed: 07/10/2020 2:32 PM Note [...] fevers. Neuro: No history of TIA's, stroke, PRESSURIZATION MECHANIC tumor, impaired sensorium, hemiplegia, paraplegia or quadriplegia. No neurological symptoms or problems. Respiratory: No history of current cough or dyspnea, or pneumonia in the past 6 weeks. No history of respiratory/pulmonary symptoms or problems. Cardiovascular: Hypertension requiring meds, Anticoagulation therapy, (more content not included)... Normal [facility] PreOp/PreProc COVIDon 2020 SARS-CoV-2 (COVID-19) RNA LAURA+probe Ql (Unsp spec) UPPER RESPIRATORY TRACT SWAB Normal [facility] Comment on above: Performed By: #### P OCOVD #### [facility] [employer] [address] [place], [place] [address] SARS-CoV-2 (COVID-19) RNA LAURA+probe Ql (Unsp spec) Negative Normal Negative for COVID19 (SARS CoV2) by PCR. [facility] Comment on above: Result Comment: This test was developed and its performance characteristics determined by [facility]'s [facility] [place]. This test has been authorized by FDA [...] 2019. 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 Please call my can tender, Catalina Gaytan. She will call you in the next few days if she doesn't hear from you. Catalina (can tender:) [phone], option 4. Dr. Faustin Office: [phone] if you have any questions. Please note [...] This w (more content not included)... Normal [facility] Terra 06-29-2020 TAYLOR Telephone ([facility]) LYRIC JUAREZ ([id number]) 1945 F Date Time Provider Department 06/29/20 CHI FAUSTIN During your visit today, we recorded the following information about you: Nguyen Marino ADM 06/29/2020 10:[address] Colon ([phone]) would like for Dr. Faustin to see [...] Status:Closed by CHI FAUSTIN MD on 06/29/20 [facility] PT/INRon 10-12-2019 INR Coag (PPP) [Relative time] 2.4 {INR} High 0.9 - 1.1 [facility] Comment on above: Performed By: #### P TINR #### [address] [address] PT Coag (PPP) [Time] 28.1 s High 10.1 - 13.3 [facility] Comment on above: Result Comment: Note new reference range as of 10/04/2019. Performed By: #### P TINR #### [address] [address] PT/INRon 09-12-2019 INR Coag (PPP) [Relative time] 2.5 {INR} High 0.9 - 1.1 [facility] Comment on above: Performed By: #### P TINR #### [address] [address] PT Coag (PPP) [Time] 28.5 s High 9.7 - 12.7 [facility] Comment on above: Performed By: #### P TINR #### [address] [address] PT/INRon 08-10-2019 INR Coag (PPP) [Relative time] 2.1 {INR} High 0.9 - 1.1 [facility] Comment on above: Performed By: #### P TINR #### [address] [address] PT Coag (PPP) [Time] 23.6 s High 9.7 - 12.7 [facility] Comment on above: Performed By: #### P TINR #### [address] [address] PT/INRon 07-13-2019 INR Coag (PPP) [Relative time] 2.2 {INR} High 0.9 - 1.1 [facility] Comment on above: Performed By: #### P TINR #### [address] [address] PT Coag (PPP) [Time] 24.7 s High 9.7 - 12.7 [facility] Comment on above: Performed By: #### P TINR #### [address] [address] PT/INRon 06-15-2019 INR Coag (PPP) [Relative time] 2.2 {INR} High 0.9 - 1.1 [facility] Comment on above: Performed By: #### P TINR #### [address] [place] [address] PT Coag (PPP) [Time] 25.6 s High 9.7 - 12.7 [facility] Comment on above: Performed By: #### P TINR #### [address] [address] PT/INRon 06-01-2019 INR Coag (PPP) [Relative time] 2.1 {INR} High 0.9 - 1.1 [facility] Comment on above: Performed By: #### P TINR #### [address] [place] [address] PT Coag (PPP) [Time] 23.6 s High 9.7 - 12.7 [facility] Comment on above: Performed By: #### P TINR #### [address] [place] [address] PT/INRon 05-17-2019 INR Coag (PPP) [Relative time] 1.8 {INR} High 0.9 - 1.1 [facility] Comment on above: Performed By: #### P TINR #### [address] [place] [address] PT Coag (PPP) [Time] 20.2 s High 9.7 - 12.7 [facility] Comment on above: Performed By: #### P TINR #### [address] [place] [address] PT/INRon 04-27-2019 INR Coag (PPP) [Relative time] 1.9 {INR} High 0.9 - 1.1 [facility] Comment on above: Performed By: #### P TINR #### [address] [place] [address] PT Coag (PPP) [Time] 21.6 s High 9.7 - 12.7 [facility] Comment on above: Performed By: #### P TINR #### [address] [place] [address] PT/INRon 04-11-2019 INR Coag (PPP) [Relative time] 1.7 {INR} High 0.9 - 1.1 [facility] Comment on above: Performed By: #### P TINR #### [address] [place] [address] PT Coag (PPP) [Time] 19.6 s High 9.7 - 12.7 [facility] Comment on above: Performed By: #### P TINR #### [address] [place] [address] PT/INRon 03-14-2019 INR Coag (PPP) [Relative time] 2.0 {INR} High 0.9 - 1.1 [facility] Comment on above: Performed By: #### P TINR #### [address] [place] [address] PT Coag (PPP) [Time] 22.3 s High 9.7 - 12.7 [facility] Comment on above: Performed By: #### P TINR #### [address] [place] [address] PT/INRon 02-09-2019 INR Coag (PPP) [Relative time] 2.0 {INR} High 0.9 - 1.1 [facility] Comment on above: Performed By: #### P TINR #### [address] [place] [address] PT Coag (PPP) [Time] 22.9 s High 9.7 - 12.7 [facility] Comment on above: Performed By: #### P TINR #### [address] [place] [address] PT/INRon 01-12-2019 INR Coag (PPP) [Relative time] 2.2 {INR} High 0.9 - 1.1 [facility] Comment on above: Performed By: #### P TINR #### [address] [place] [address] PT Coag (PPP) [Time] 24.9 s High 9.7 - 12.7 [facility] Comment on above: Performed By: #### P TINR #### [address] [place] [address] PT/INRon 12-13-2018 INR Coag (PPP) [Relative time] 2.1 {INR} High 0.9 - 1.1 [facility] Comment on above: Performed By: #### P TINR #### [address] [place] [address] PT Coag (PPP) [Time] 24.0 s High 9.7 - 12.7 [facility] Comment on above: Performed By: #### P TINR #### [address] [place] [address] PT/INRon 11-08-2018 INR Coag (PPP) [Relative time] 2.3 {INR} High 0.9 - 1.1 [facility] Comment on above: Performed By: #### P TINR #### [facility] [address] [place] [address] PT Coag (PPP) [Time] 26.3 s High 9.7 - 12.7 [facility] Comment on above: Performed By: #### P TINR #### [facility] [address] [place] [address] Prothrombin Timeon 9 INR Coag RelTime (PPP) 3.70 {INR} High 0.90-1.10 [facility] Comment on above: Performed By: #### 3 [id number] #### [facility] [address] [place] [address] Prothrombin time (PT) Coag time (PPP) 42.9 s High 9.7-12.7 [facility] are Comment on above: Result Comment: MARY LOPEZ NOTE NEW REFERENCE RANGE EFFECTIVE 2018 Performed By: #### 3 [id number] #### [facility] [address] [place] [address] Prothrombin Timeon 9 INR Coag RelTime (PPP) 2.42 {INR} High 0.90-1.10 [facility] Comment on above: Performed By: #### 3 [id number] #### [facility] [address] [place] [address] Prothrombin time (PT) Coag time (PPP) 27.9 s High 9.7-12.7 [facility] are Comment on above: Result Comment: PLEA SE NOTE NEW REFERENCE RANGE EFFECTIVE 2018 Performed By: #### 3 [id number] #### [facility] [address] [place] [address] Prothrombin Timeon 9 INR Coag RelTime (PPP) 2.74 {INR} High 0.90-1.10 [facility] Comment on above: Performed By: #### 3 [id number] #### [facility] [address] [place] [address] Prothrombin time (PT) Coag time (PPP) 31.6 s High 9.7-12.7 [facility] are Comment on above: Result Comment: MARY LOPEZ NOTE NEW REFERENCE RANGE EFFECTIVE 2018 Performed By: #### 3 [id number] #### [facility] [address] [place] [address] Prothrombin Timeon 9 INR Coag RelTime (PPP) 1.79 {INR} High 0.90-1.10 [facility] Comment on above: Performed By: #### 3 [id number] #### [facility] [address] [place] [address] Prothrombin time (PT) Coag time (PPP) 20.5 s High 9.7-12.7 [facility] are Comment on above: Result Comment: MARY LOPEZ NOTE NEW REFERENCE RANGE EFFECTIVE 2018 Performed By: #### 3 [id number] #### [facility] [address] [place] [address] Prothrombin Timeon 9 INR Coag RelTime (PPP) 3.66 {INR} High 0.90-1.10 [facility] Comment on above: Performed By: #### 3 [id number] #### [facility] [address] [place] [address] Prothrombin time (PT) Coag time (PPP) 42.5 s High 9.7-12.7 [facility] are Comment on above: Result Comment: MARY LOPEZ NOTE NEW REFERENCE RANGE EFFECTIVE 2018 Performed By: #### 3 [id number] #### [facility] [address] [place] [address] Prothrombin Timeon 8 INR Coag RelTime (PPP) 2.59 {INR} High 0.90-1.10 [facility] Comment on above: Performed By: #### 3 [id number] #### [facility] [address] [place] [address] Prothrombin time (PT) Coag time (PPP) 29.8 s High 9.7-12.7 [facility] are Comment on above: Result Comment: MARY LOPEZ NOTE NEW REFERENCE RANGE EFFECTIVE 2018 Performed By: #### 3 [id number] #### [facility] [address] [place] [address] Prothrombin Timeon 8 INR Coag RelTime (PPP) 3.57 {INR} High 0.90-1.10 [facility] Comment on above: Performed By: #### 3 [id number] #### [facility] [address] [place] [address] Prothrombin time (PT) Coag time (PPP) 41.4 s High 9.7-12.7 [facility] are Comment on above: Result Comment: MARY LOPEZ NOTE NEW REFERENCE RANGE EFFECTIVE 2018 Performed By: #### 3 [id number] #### [facility] [address] [place] [address] Prothrombin Timeon 8 INR Coag RelTime (PPP) 3.57 {INR} High 0.90-1.10 [facility] Comment on above: Performed By: #### 3 [id number] #### [facility] [address] [place] [address] Prothrombin time (PT) Coag time (PPP) 40.1 s High 9.8-12.7 [facility] are Comment on above: Performed By: #### 3 [id number] #### [facility] [address] [place] [address] Prothrombin Timeon 8 INR Coag RelTime (PPP) 1.78 {INR} High 0.90-1.10 [facility] Comment on above: Performed By: #### 3 [id number] #### [facility] [address] [place] [address] Prothrombin time (PT) Coag time (PPP) 19.9 s High 9.8-12.7 [facility] are Comment on above: Performed By: #### 3 [id number] #### [facility] [address] [place] [address] Prothrombin Timeon 8 INR Coag RelTime (PPP) 2.46 {INR} High 0.90-1.10 [facility] Comment on above: Performed By: #### 3 [id number] #### [facility] [address] [place] [address] Prothrombin time (PT) Coag time (PPP) 27.6 s High 9.8-12.7 [facility] are Comment on above: Performed By: #### 3 [id number] #### [facility] [address] [place] [address] Prothrombin Timeon 8 INR Coag RelTime (PPP) 2.76 {INR} High 0.90-1.10 [facility] Comment on above: Performed By: #### 3 [id number] #### [facility] [address] [place] [address] Prothrombin time (PT) Coag time (PPP) 30.9 s High 9.8-12.7 [facility] are Comment on above: Performed By: #### 3 [id number] #### [facility] [address] [place] [address] Prothrombin Timeon 8 INR Coag RelTime (PPP) 3.19 {INR} High 0.90-1.10 [facility] Comment on above: Result Comment: MARY LOPEZ NOTE NEW REFERENCE RANGE EFFECTIVE 2017 Performed By: #### 3 [id number] #### [facility] [address] [place] [address], [place] [address] Prothrombin time (PT) Coag time (PPP) 35.8 s High 9.8-12.7 [facility] are Comment on above: Result Comment: MARY LOPEZ NOTE NEW REFERENCE RANGE EFFECTIVE 2017 Performed By: #### 3 [id number] #### [facility] [address] [place] [address] Prothrombin Timeon 8 INR Coag RelTime (PPP) 3.37 {INR} High 0.90-1.10 [facility] Comment on above: Result Comment: MARY LOPEZ NOTE NEW REFERENCE RANGE EFFECTIVE 2017 Performed By: #### 3 [id number] #### [facility] [address] [place] [address] Prothrombin time (PT) Coag time (PPP) 37.9 s High 9.8-12.7 [facility] are Comment on above: Result Comment: MARY LOPEZ NOTE NEW REFERENCE RANGE EFFECTIVE 2017 Performed By: #### 3 [id number] #### [facility] [address] [place] [address] Prothrombin Timeon 8 INR Coag RelTime (PPP) 2.56 {INR} High 0.90-1.10 [facility] Comment on above: Result Comment: MARY LOPEZ NOTE NEW REFERENCE RANGE EFFECTIVE 2017 Performed By: #### 3 [id number] #### [facility] [address] [place] [address] Prothrombin time (PT) Coag time (PPP) 28.7 s High 9.8-12.7 [facility] are Comment on above: Result Comment: MARY LOPEZ NOTE NEW REFERENCE RANGE EFFECTIVE 2017 Performed By: #### [id number] #### [facility] [address] [place] [address] Prothrombin Timeon 8 INR Coag RelTime (PPP) 2.28 {INR} High 0.90-1.10 [facility] Comment on above: Result Comment: MARY LOPEZ NOTE NEW REFERENCE RANGE EFFECTIVE 2017 Performed By: #### [id number] #### [facility] [address] [place] [address] Prothrombin time (PT) Coag time (PPP) 25.5 s High 9.8-12.7 [facility] are Comment on above: Result Comment: MARY LOPEZ NOTE NEW REFERENCE RANGE EFFECTIVE 2017 Performed By: #### [id number] #### [facility] [address] [place] [address] Vital Signs Date Time Vital Sign Value Performing Clinician Facility 05-17-2024 08:43-0500 Body height 163.83 cm [facility] 05-17-2024 08:43-0500 Body mass index (BMI) [Ratio] 29.4 kg/m2 [facility] 05-17-2024 08:43-0500 Body weight 78.92 kg [facility] 05-17-2024 08:43-0500 Diastolic blood pressure 86 mm[Hg] [facility] 05-17-2024 08:43-0500 Heart rate 73 /min [facility] 05-17-2024 08:43-0500 Systolic blood pressure 165 mm[Hg] [facility] 05-16-2024 13:13-0500 Diastolic blood pressure 82 mm[Hg] Frandy Urena MD Work Phone: [facility] 05-16-2024 13:13-0500 Systolic blood pressure 155 mm[Hg] Frandy Urena MD Work Phone: [facility] 05-16-2024 12:56-0500 Body height 167.6 cm Frandy Urena MD Work Phone: [facility] 05-16-2024 12:56-0500 Body mass index (BMI) [Ratio] 28.21 kg/m2 Frandy Urena MD Work Phone: [facility] 05-16-2024 12:56-0500 Body weight 79.29 kg Frandy Urena MD Work Phone: [facility] 05-16-2024 12:56-0500 Heart rate 88 /min Frandy Urena MD Work Phone: [facility] 05-12-2024 09:35-0500 Body height 167.6 cm Indra Alexander DPM Work Phone: [facility] 05-12-2024 09:35-0500 Body mass index (BMI) [Ratio] 32.28 kg/m2 Indra Alexander DPM Work Phone: [facility] 05-12-2024 09:35-0500 Body weight 90.72 kg Indra Alexander DPM Work Phone: [facility] 05-12-2024 09:35-0500 Respiratory rate 16 /min Indra Alexander DPM Work Phone: [facility] 04-20-2024 10:26-0500 Body height 163.83 cm [facility] 04-20-2024 10:26-0500 Body mass index (BMI) [Ratio] 29.5 kg/m2 [facility] 04-20-2024 10:26-0500 Body weight 79.37 kg [facility] 04-20-2024 10:26-0500 Diastolic blood pressure 72 mm[Hg] [facility] 04-20-2024 10:26-0500 Heart rate 71 /min [facility] 04-20-2024 10:26-0500 Systolic blood pressure 137 mm[Hg] [facility] 01-28-2024 08:45-0400 Body height 167.6 cm Indra Alexander DPM Work Phone: [facility] 01-28-2024 08:45-0400 Body mass index (BMI) [Ratio] 32.28 kg/m2 Indra Alexander DPM Work Phone: [facility] 01-28-2024 08:45-0400 Body weight 90.72 kg Indra Alexander DPM Work Phone: [facility] 01-28-2024 08:45-0400 Diastolic blood pressure 82 mm[Hg] Indra Alexander DPM Work Phone: [facility] 01-28-2024 08:45-0400 Heart rate 74 /min Indra Alexander DPM Work Phone: [facility] 01-28-2024 08:45-0400 Respiratory rate 18 /min Indra Alexander DPM Work Phone: [facility] 01-28-2024 08:45-0400 Systolic blood pressure 128 mm[Hg] Indra Alexander DPM Work Phone: [facility] 09-28-2023 09:10-0400 Diastolic blood pressure 80 mm[Hg] Karson Watts MD Work Phone: [facility] 09-28-2023 09:10-0400 Systolic blood pressure 130 mm[Hg] Karson Watts MD Work Phone: [facility] 09-28-2023 08:35-0400 Body height 167.6 cm Karson Watts MD Work Phone: [facility] 09-28-2023 08:35-0400 Body mass index (BMI) [Ratio] 29.05 kg/m2 Karson Watts MD Work Phone: [facility] 09-28-2023 08:35-0400 Body weight 81.65 kg Karson Watts MD Work Phone: [facility] 09-28-2023 08:35-0400 Heart rate 60 /min Karson Watts MD Work Phone: [facility] 09-29-2022 08:06-0400 Body height 165.1 cm Felipe Johnson Work Phone: [facility] [address] DO Work Phone: 09-29-2022 08:06-0400 Body mass index (BMI) [Ratio] 29.45 kg/m2 Felipe Johnson Work Phone: [facility] DO Work Phone: 09-29-2022 08:06-0400 Body surface area Derived from formula 1.88 m2 Felipe Johnson Work Phone: [facility] [address] DO Work Phone: 09-29-2022 08:06-0400 Body weight 80.29 kg Felipe Johnson Work Phone: [facility] [address] DO Work Phone: 09-29-2022 08:06-0400 Diastolic blood pressure 82 mm[Hg] Felipe Johnson Work Phone: [facility] DO Work Phone: 09-29-2022 08:06-0400 Heart rate 88 /min Felipe Johnson Work Phone: [facility] [address] DO Work Phone: 09-29-2022 08:06-0400 Systolic blood pressure 138 mm[Hg] Felipe Johnson Work Phone: [facility] [address] DO Work Phone: 03-17-2022 00:00-0500 94.6 1 Felipe Johnson Work Phone: [facility] [address] DO Work Phone: Comment on above: [facility] 02-12-2022 16:38-0400 Body height 165.1 cm Felipe Johnson Work Phone: [facility] [address] DO Work Phone: 02-12-2022 16:38-0400 Body mass index (BMI) [Ratio] 29.95 kg/m2 Felipe Johnson Work Phone: [facility] DO Work Phone: 02-12-2022 16:38-0400 Body surface area Derived from formula 1.89 m2 Felipe Johnson Work Phone: [facility] DO Work Phone: 02-12-2022 16:38-0400 Body weight 81.65 kg Felipe Johnson Work Phone: [facility] [address] DO Work Phone: 02-12-2022 16:38-0400 Diastolic blood pressure 76 mm[Hg] Felipe Johnson Work Phone: [facility] [address] DO Work Phone: 02-12-2022 16:38-0400 Heart rate 60 /min Felipe Johnson Work Phone: [facility] [address] DO Work Phone: 02-12-2022 16:38-0400 Systolic blood pressure 130 mm[Hg] Felipe Johnson Work Phone: [facility] [address] DO Work Phone: 02-12-2022 15:13-0400 Diastolic blood pressure 76 mm[Hg] Felipe Johnson Work Phone: [facility] DO Work Phone: 02-12-2022 15:13-0400 Systolic blood pressure 160 mm[Hg] Felipe Johnson Work Phone: [facility] [address] DO Work Phone: 02-12-2022 14:46-0400 Body height 165.1 cm Felipe Johnson Work Phone: [facility] [address] DO Work Phone: 02-12-2022 14:46-0400 Body mass index (BMI) [Ratio] 29.95 kg/m2 Felipe Johnson Work Phone: [facility] [address] DO Work Phone: 02-12-2022 14:46-0400 Body surface area Derived from formula 1.89 m2 Felipe Johnson Work Phone: [facility] DO Work Phone: 02-12-2022 14:46-0400 Body weight 81.65 kg Felipe Johnson Work Phone: [facility] [address] DO Work Phone: 02-12-2022 14:46-0400 Diastolic blood pressure 82 mm[Hg] Felipe Johnson Work Phone: [facility] DO Work Phone: 02-12-2022 14:46-0400 Heart rate 60 /min Felipe Johnson Work Phone: [facility] DO Work Phone: 02-12-2022 14:46-0400 Systolic blood pressure 168 mm[Hg] Felipe Johnson Work Phone: [facility] [address] DO Work Phone: 06-04-2021 10:35-0500 Diastolic blood pressure 78 mm[Hg] Felipe Johnson Work Phone: [facility] DO Work Phone: 06-04-2021 10:35-0500 Systolic blood pressure 128 mm[Hg] Felipe Johnson Work Phone: [facility] [address] DO Work Phone: 06-04-2021 10:00-0500 Diastolic blood pressure 84 mm[Hg] Felipe Johnson Work Phone: [facility] [address] DO Work Phone: 06-04-2021 10:00-0500 Systolic blood pressure 154 mm[Hg] Felipe Johnson Work Phone: [facility] [address] DO Work Phone: 06-04-2021 09:58-0500 Body height 165.1 cm Felipe Johnson Work Phone: [facility] [address] DO Work Phone: 06-04-2021 09:58-0500 Body mass index (BMI) [Ratio] 30.12 kg/m2 Felipe Johnson Work Phone: [facility] [address] DO Work Phone: 06-04-2021 09:58-0500 Body surface area Derived from formula 1.9 m2 Felipe Johnson Work Phone: [facility] [address] DO Work Phone: 06-04-2021 09:58-0500 Body weight 82.1 kg Felipe Johnson Work Phone: [facility] [address] DO Work Phone: 06-04-2021 09:58-0500 Diastolic blood pressure 101 mm[Hg] Felipe Johnson Work Phone: [facility] DO Work Phone: 06-04-2021 09:58-0500 Heart rate 84 /min Felipe Jhonson Work Phone: [facility] DO Work Phone: 06-04-2021 09:58-0500 Systolic blood pressure 161 mm[Hg] Felipe Johnson Work Phone: [facility] [address] DO Work Phone: Encounters Encounter Date Encounter Type Care Provider Facility Start: 05-18-2024 End: 05-18-2024 Bamboo flowsheet Chi Ledezma DO Work Phone: [facility] Start: 05-18-2024 End: 05-18-2024 Bamminicabito [employer]Onlinenorma Ledezma DO Work Phone: [facility] Start: 05-18-2024 End: 05-18-2024 ambulatory CHI LEDEZMA Not Available Start: 05-17-2024 End: 05-17-2024 ambulatory [facility] Work Phone: Start: 05-17-2024 End: 05-17-2024 [facility] Work Phone: Start: 05-16-2024 End: 05-16-2024 Office outpatient visit 25 minutes Frandy Urena MD Work Phone: [facility] Comment on above: Permanent atrial fib rillation (Multi) (Primary Dx); Essential hypertension; Hyperlipidemia, unspecified hyperlipidemia type; Stage 3a chronic kidney disease (Multi); Palpitations; BMI 28.0-28.9,adult; Stage 3a chronic kidney disease (CKD) (Multi); Never smoked tobacco; Hyperlipidemia, unspecified; Essential (primary) hypertension; Microalbuminuria Start: 05-16-2024 End: 05-16-2024 ambulatory [facility] Start: 05-12-2024 End: 05-12-2024 Bamboo flowsheet Indra Alexander DPM Work Phone: [facility] Start: 05-12-2024 End: 05-12-2024 Bamboo flowsheet Indra Alexander DPM Work Phone: [facility] Start: 05-12-2024 End: 05-12-2024 Patient encounter procedure Indra Alexander DPM Work Phone: [facility] Comment on above: Verruca plantaris (P rimary Dx); Foot pain, left; Pain due to onychomycosis of toenails of both feet; Venous insufficiency Start: 05-12-2024 End: 05-12-2024 ambulatory INDRA ALEXANDER Not Available Start: 04-25-2024 Non-patient / Non-visit [facility] Work Phone: Start: 04-20-2024 End: 04-20-2024 Patient encounter procedure [facility] Work Phone: Start: 04-19-2024 Non-patient / Non-visit [facility] Work Phone: Start: 02-29-2024 End: 02-29-2024 Bamboo flowsheet Milka Rich AUD Work Phone: [facility] Start: 02-29-2024 End: 02-29-2024 Bamboo flowsheet Milka Rich AUD Work Phone: [facility] Start: 02-29-2024 End: 02-29-2024 Patient encounter procedure Milka Rich AUD Work Phone: [facility] Comment on above: 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) Start: 02-29-2024 End: 02-29-2024 ambulatory MILKA RICH Not Available Start: 01-28-2024 End: 01-28-2024 Bamboo flowsheet Indra Alexander DPM Work Phone: [facility] Start: 01-28-2024 End: 01-28-2024 Bamboo flowsheet Indra Alexander DPM Work Phone: [facility] Start: 01-28-2024 End: 01-28-2024 Patient encounter procedure Indra Alexander DPM Work Phone: [facility] Comment on above: Verruca plantaris (P rimary Dx); Foot pain, left; Onychomycosis; Toe pain, bilateral; Venous insufficiency Start: 01-28-2024 End: 01-28-2024 ambulatory INDRA ALEXANDER Not Available Start: 01-08-2024 End: 01-08-2024 Bamboo flowsheet Chi Ledezma DO Work Phone: [facility] Start: 01-08-2024 End: 01-08-2024 Bamboo flowsheet Chi Ledezma DO Work Phone: [facility] Start: 01-08-2024 End: 01-08-2024 ambulatory CHI LEDEZMA Not Available Start: 11-19-2023 End: 11-19-2023 ambulatory INDRA ALEXANDER Not Available Start: 09-28-2023 End: 09-28-2023 Office outpatient visit 25 minutes Karson Watts MD Work Phone: [facility] Comment on above: Chronic atrial fibri llation (Multi) (Primary Dx); Essential hypertension; Mixed hyperlipidemia; Hyperlipidemia, unspecified Start: 09-28-2023 End: 09-28-2023 ambulatory KARSON WATTS [facility] Start: 09-10-2023 End: 09-10-2023 ambulatory INDRA ALEXANDER Not Available Start: 09-04-2023 End: 09-04-2023 ambulatory CHI LEDEZMA Not Available Start: 08-28-2023 End: 08-28-2023 ambulatory MILKA RICH Not Available Start: 08-06-2023 End: 08-06-2023 ambulatory EVER SQUIRES Not Available Start: 08-05-2023 End: 08-05-2023 ambulatory MILKA RICH Not Available Start: 07-14-2023 End: 07-14-2023 ambulatory MILKA RICH Not Available Start: 07-02-2023 End: 07-02-2023 ambulatory INDRA ALEXANDER Not Available Start: 06-15-2023 Refill Elise May tonie COT Work Phone: [facility] Comment on above: Rce (recurrent corne al erosion), left (Primary Dx) Start: 06-05-2023 End: 06-05-2023 ambulatory CHI January LEDEZMA Not Available Start: 06-02-2023 End: 06-02-2023 ambulatory EVER Borges SHAW Not Available Start: 05-26-2023 End: 05-26-2023 ambulatory EVER Borges SHAW Not Available Start: 10-07-2022 End: 10-08-[address] KARSON WATTS Facility:H1 Start: 10-02-2022 Rx Renewal Felipe Johnson Work Phone: [facility] [address] DO Work Phone: Start: 09-12-2022 Patient encounter procedure Felipe Johnson Work Phone: [facility] [address] DO Work Phone: Start: 09-11-2022 End: 09-11-[address] KARSON WATTS Facility:[facility]1 Start: 08-14-2022 End: 09-08-[address] KARSON WATTS Facility:[facility]1 Start: 08-11-2022 End: 08-12-[address] DOCTOR VILLEDA Facility:H1 Start: 07-30-2022 End: 07-31-[address] KARSON WATTS Facility:H1 Start: 07-23-2022 Rx Renewal Felipe Johnson Work Phone: [facility] [address] DO Work Phone: Start: 06-18-2022 End: 07-09-[address] KARSON WATTS Facility:H1 Start: 06-09-2022 End: 06-10-[address] KARSON WATTS Facility:H1 Start: 05-19-2022 End: 05-20-[address] KARSON WATTS Facility:H1 Start: 04-28-2022 End: 04-29-[address] KARSON WATTS Facility:H1 Start: 03-26-2022 End: 03-27-[address] FELIPE JOHNSON Facility:H1 Start: 03-20-2022 Rx Renewal Felipe Johnson Work Phone: [facility] [address] DO Work Phone: Start: 03-17-2022 End: 03-18-[address] FELIPE JOHNSON Facility:H1 Start: 02-26-2022 End: 02-27-[address] KARSON WATTS Facility:H1 Start: 02-12-2022 Office outpatient vi sit 15 minutes Felipe Johnson Work Phone: [facility] [address] DO Work Phone: Start: 02-12-[address] Felipe Johnson Facility:[id number] Start: 02-06-2022 End: 02-07-[address] KARSON WATTS Facility:H1 Start: 01-22-2022 End: 01-23-[address] KARSON WATTS Facility:H1 Start: 12-30-2021 Rx Renewal Felipe Johnson Work Phone: [facility] DO Work Phone: Start: 12-24-2021 End: 12-25-[address] KARSON WATTS Facility:H1 Start: 11-29-2021 Rx Renewal Felipe Johnson Work Phone: [facility] [address] DO Work Phone: Start: 11-28-2021 End: 11-28-2021 ambulatory HORACE SURESH . Facility:H1 Start: 11-27-2021 End: 11-28-[address] FELIPE JOHNSON Facility:H1 Start: 11-04-2021 Rx Renewal Felipe Johnson Work Phone: [facility] DO Work Phone: Start: 09-30-2021 Rx Renewal Felipe Myers Yan Work Phone: [facility] DO Work Phone: Start: 07-23-2021 Rx Renewal Felipe Myers Johnson Work Phone: [facility] DO Work Phone: Start: 06-27-2021 Rx Renewal Felipe Myers Johnson Work Phone: [facility] [address] DO Work Phone: Start: 06-04-2021 Office outpatient vi sit 25 minutes Felipe Johnson Work Phone: [facility] [address] DO Work Phone: Start: 06-04-2021 ambulatory Karson Watts II Faci lity:[id number] Start: 02-11-2021 Patient encounter procedure Felipe Myers Johnson Work Phone: [facility] DO Work Phone: Start: 08-02-2018 Patient encounter procedure KARSON WATTS Facility:[id number] Start: 07-06-2018 Patient encounter procedure KARSON WATTS Facility:[id number] Start: 06-08-2018 Patient encounter procedure KARSON WATTS Facility:[id number] Start: 05-27-2018 Patient encounter procedure KARSON WATTS Facility:[id number] Start: 05-13-2018 Patient encounter procedure KARSON WATST Facility:[id number] Start: 04-15-2018 Patient encounter procedure KARSON [...] Procedures Date Procedure Procedure Detail Performing Clinician Start: 05-18-2024 Visual field xm uni/ bi w/interp extended exam Chi Ledezma DO Work Phone: Start: 05-18-2024 End: 05-18-2024 [facility]&eval intermediate estab pt Primary open angle glaucoma (POAG) of both eyes, mild stage (CMS/HCC) Chi Ledezma DO Work Phone: Comment on above: Primary open angle g laucoma (POAG) of both eyes, mild stage (CMS/HCC) (Primary Dx); Herpes simplex virus (HSV) stromal keratitis; Keratoconjunctivitis sicca of both eyes not specified as Sjogren's; Type 2 diabetes mellitus without complication, without long-term current use of insulin (CMS/HCC); Rce (recurrent corneal erosion), left Start: 01-08-2024 Computerized ophthal palak imaging optic nerve Chi Ledezma DO Work Phone: Start: 01-08-2024 End: 01-08-2024 [facility]&eval comprhnsv estab pt 1/> Primary open angle glaucoma (POAG) of both eyes, mild stage (CMS/HCC) Chi Ledezma DO Work Phone: Comment on above: Primary open angle g laucoma (POAG) of both eyes, mild stage (CMS/HCC) (Primary Dx); Rce (recurrent corneal erosion), left; Keratoconjunctivitis sicca of both eyes not specified as Sjogren's; Herpes simplex virus (HSV) stromal keratitis; Type 2 diabetes mellitus without complication, without long-term current use of insulin (CMS/HCC) Cholecystectomy Felipe maria Work Phone: Colonoscopy Felipe Johnson Work Phone: Comment on above: [id number] Sarthak Shi; Surgical procedure o n eye proper Felipe Myers Yan Work Phone: Plan of Treatment Date Care Activity Detail Author Start: 12-07-2024 End: 12-07-2024 Patient encounter procedure 12/07/2024 9:10 AM EDT Office Visit [facility] [address] [facility] [address] [place] [id number] Frandy Urena MD [address] [place], [place] [id number] [facility] Start: 09-13-2024 End: 09-13-2024 Patient encounter procedure 09/13/2024 10:45 AM EDT Appointment [facility] [address] [facility] [address] [place] [address] [facility] Start: 07-28-2024 End: 07-28-2024 Patient encounter procedure 07/28/2024 10:10 AM EDT Procedure Visit [facility] [address] [facility] [address] [place] [id number] Indra Alexander, DPTrinity [address] [facility] [address] [place] [address] [facility] Start: 07-27-2024 End: 07-27-2024 Patient encounter procedure 07/27/2024 9:00 AM EDT Office Visit [facility] [address] [place] [id number] Milka Rich, AUD [address] [facility] [place] [address] [facility] Start: 05-18-2024 End: 05-18-2024 Patient encounter procedure [facility] Comment on above: Arrived Start: 05-16-2024 End: 05-16-2026 US Heart Transthoracic Transthoracic Echo Complete Echocardiography Routine Permanent atrial fibrillation (Multi) BMI 28.0-28.9,adult Expected: 05/16/2024 (Approximate), Expires: 05/16/2026 [facility] Service Area Work Phone: Comment on above: Expected: 05/16/2024 (Approximate), Expires: 05/16/2026 Start: 05-12-2024 End: 05-12-2024 Patient encounter procedure 05/12/2024 10:10 AM EST Procedure Visit [facility] [address] [place] [id number] Indra Alexander DPM [address] [address] Verruca plantaris (Primary Dx); Foot pain, left; Pain due to onychomycosis of toenails of both feet; Venous insufficiency [facility] Comment on above: Verruca plantaris (P rimary Dx); Foot pain, left; Pain due to onychomycosis of toenails of both feet; Venous insufficiency Start: 04-20-2024 End: 04-20-2024 Patient encounter procedure 04/20/2024 9:20 AM EST Office Visit [facility] [address] [facility] [address] [place] [phone] Frandy Urena MD [address] [facility] [address] [place] [address] [facility] Start: 04-14-2024 End: 04-14-2024 Patient encounter procedure 04/14/2024 8:30 AM EST Procedure Visit [facility] [address] [facility] [address] [place] [phone] Indra Alexander DPM [address] [address] [facility] Start: 02-29-2024 End: 02-29-2024 Patient encounter procedure [facility] Comment on above: Arrived Start: 01-28-2024 End: 01-28-2024 Patient encounter procedure [facility] Comment on above: Verruca plantaris (P rimary Dx); Foot pain, left; Onychomycosis; Toe pain, bilateral; Venous insufficiency Start: 01-10-2024 COVID-19 Vaccine ( season) COVID-19 Vaccine ( season) [facility] Start: 01-10-2024 Influenza vaccination Influenza Vacc ine (#1) [facility] Start: 01-08-2024 End: 01-08-2024 Patient encounter procedure 01/08/2024 10:00 AM EDT Office Visit [facility] [address] [place] [address] Chi Ledezma, [address] [place] [address] Arrived [facility] Comment on above: Arrived Start: 09-28-2023 FUV, Provider: Karson Watts, Status: Pen, Time: 8:00 AM FUV, Provider: Karson Watts, Status: Pen, Time: 8:00 AM [place] [address] DO Work Phone: Start: 09-04-2023 End: 09-04-2023 Patient encounter procedure 09/04/2023 9:00 AM EDT Office Visit [facility] [address] [place] [address] Chi Ledezma, [address] [place] [address] [facility] Start: 07-14-2023 End: 07-14-2023 Patient encounter procedure 07/14/2023 9:30 AM EST Office Visit [facility] [address] [facility] [address] Milka Rich, AUD [address] [facility] [facility] [place] [address] [facility] Start: 07-02-2023 End: 07-02-2023 Patient encounter procedure 07/02/2023 8:30 AM EST Procedure Visit [facility] [address] [facility] [address] [place] [address] Indra Alexander, DPM [address] [facility] [address] [place] [address] [facility] Start: 01-09-2023 COVID-19 Vaccine ( season) COVID-19 Vaccine () [facility] Start: 10-07-2022 FUV, Provider: Karson Watts, Status: Pen, Time: 11:00 AM FUV, Provider: Karson Watts, Status: Pen, Time: 11:00 AM -[facility] [address] DO Work Phone: Start: 09-29-2022 FUV, Provider: Karson Watts, Status: Pen, Time: 7:50 AM FUV, Provider: Karson Watts, Status: Pen, Time: 7:50 AM -[facility] [address] DO Work Phone: Start: 02-12-2022 FUV, Provider: Karson Watts, Status: Pen, Time: 2:50 PM FUV, Provider: Karson Watts, Status: Pen, Time: 2:50 PM [facility] [address] DO Work Phone: Start: 06-04-2021 FUV, Provider: Karson Watts, Status: Pen, Time: 9:30 AM FUV, Provider: Karson Watts, Status: Pen, Time: 9:30 AM [facility] 250 DO Work Phone: Start: 2020 RSV High Risk: (Elde rly (60+) or Population) (1 - 1-dose 75+ series) RSV High Risk: (Elderly (60+) or Population) (1 - 1-dose 75+ series) [facility] Start: 2005 RSV patient s and/or patients aged 60+ years (1 - 1-dose 60+ series) RSV patients and/or patients aged 60+ years (1 - 1-dose 60+ series) [facility] Start: 09-03-1995 Zoster Vaccines (1 o f 2) Zoster Vaccines (1 of 2) [facility] Start: 09-03-1967 DTaP/Tdap/Td Vaccine s (1 - Tdap) DTaP/Tdap/Td Vaccines (1 - Tdap) [facility] Start: 09-03-1963 Diabetes mellitus screening Diabetes Screening [facility] Start: 09-03-1963 Hepatitis C screening Hepatitis C Sc reening [facility] Start: 1945 Lipid panel Lipid Panel [facility] Start: 1945 Screening for osteoporosis Bone Density Scan [facility] Start: 1945 Yearly Adult Physical Yearly Adult P hysical [facility] Comprehensive metabo lic 2000 panel - Serum or Plasma [facility] MG Breast - bilatera l Screening [facility] Immunizations Immunization Date Immunization Notes Care Provider Fa gavin 03-17-2024 influenza virus vacc ine, unspecified formulation Indra Alexander DPM Work Phone: [facility] 03-09-2024 Fluzone QIV High-Dos e 65YR+ [facility] 01-28-2023 influenza virus vacc ine, unspecified formulation Chi Ledezma DO Work Phone: [facility] 02-25-2022 influenza virus vacc ine, unspecified formulation [facility] 04-24-2021 Fluad Quadrivalent 0 .5 ML Intramuscular Prefilled Syringe Felipe Johnson Work Phone: [facility] [employer] 250 DO Work Phone: 03-06-2021 Moderna COVID-19 Vac cine 100 MCG/0.5ML Intramuscular Suspension Felipe Johnson Work Phone: [facility] [employer] 250 DO Work Phone: 07-24-2020 Moderna COVID-19 Vac cine 100 MCG/0.5ML Intramuscular Suspension Felipe E Johnson Work Phone: [facility] 250 DO Work Phone: 06-28-2020 Moderna COVID-19 Vac cine 100 MCG/0.5ML Intramuscular Suspension Felipe E Johnson Work Phone: [facility] 250 DO Work Phone: 01-17-2020 influenza virus vacc ine, unspecified formulation [facility] 01-10-2020 influenza, high dose seasonal, preservative-free Felipe E Johnson Work Phone: [place] [address] DO Work Phone: 02-09-2019 influenza virus vacc ine, unspecified formulation [facility] 02-09-2019 pneumococcal polysaccharide vaccine, 23 valent [facility] 02-08-2019 influenza virus vacc ine, unspecified formulation Felipe E Johnson Work Phone: [place] [address] DO Work Phone: 03-02-2018 influenza virus vacc ine, unspecified formulation [facility] 03-02-2018 Seasonal trivalent influenza vaccine, adjuvanted, preservative free Felipe E Johnson Work Phone: [place] [address] DO Work Phone: 02-08-2018 influenza virus vacc ine, unspecified formulation Felipe E Johnson Work Phone: [facility] 250 DO Work Phone: 02-19-2017 influenza virus vacc ine, unspecified formulation Felipe E Johnson Work Phone: [facility] 02-19-2017 influenza, high dose seasonal, preservative-free Karson Watts MD Work Phone: [facility] Work Phone: 02-04-2016 influenza virus vacc ine, unspecified formulation [facility] 02-04-2016 influenza, high dose seasonal, preservative-free Felipe Myers Johnson Work Phone: [place] [address] DO Work Phone: 01-10-2016 influenza virus vacc ine, unspecified formulation Feliep E Johnson Work Phone: [place] [address] DO Work Phone: 01-10-2016 pneumococcal conjuga te vaccine, 13 valent Felipe E Johnson Work Phone: [place] [address] DO Work Phone: 10-15-2015 pneumococcal conjuga te vaccine, 13 [facility] 02-14-2015 influenza virus vacc ine, unspecified formulation [facility] 02-08-2015 influenza virus vacc ine, unspecified formulation Felipe E Johnson Work Phone: [place] [address] DO Work Phone: 02-14-2014 tetanus and diphther ia toxoids, adsorbed, preservative free, for adult use (5 Lf of tetanus toxoid and 2 Lf of diphtheria toxoid) [facility] 02-08-2014 influenza virus vacc ine, unspecified formulation Felipe E Johnson Work Phone: [place] [address] DO Work Phone: 05-11-2012 influenza virus vacc ine, unspecified formulation Felipe E Johnson Work Phone: [facility] 250 DO Work Phone: 05-11-2012 pneumococcal polysaccharide vaccine, 23 valent Felipe E Johnson Work Phone: [facility] 250 DO Work Phone: 05-11-2011 influenza virus vacc ine, unspecified formulation Felipe E Johnson Work Phone: [facility] 250 DO Work Phone: 05-11-2010 influenza virus vacc ine, unspecified formulation Felipe Johnson Work Phone: [place] [address] DO Work Phone: 05-11-2010 pneumococcal polysaccharide vaccine, 23 valent Felipe Johnson Work Phone: [place] [address] DO Work Phone: 06-27-2009 novel influenza-H1N1 -09, preservative-free, injectable Felipe Johnson Work Phone: [place] [address] DO Work Phone: 03-11-2009 influenza virus vacc ine, unspecified formulation Felipe Johnson Work Phone: [place] [address] DO Work Phone: Payers Date Payer Category Payer Unknown [id number] 2022 Unknown 2022 Private Health Insurance [id number] 2010 Medicare [id number] 1959 Medicare [id number] 1959 Unknown [id number] 1945 Unknown [id number] 2.16.8 40.1.382370.3.579.2.355 1945 Unknown [id number] 2.16.8 40.1.256348.3.579.2.355 1945 Unknown [id number] .16.8 40.1.141299.3.579.2.355 1945 Unknown [id number] 2.16.8 40.1.238709.3.579.2.355 1945 Unknown [id number] 2.16.8 40.1.908936.3.579.2.355 1945 Unknown [id number] 2.16.8 40.1.746517.3.579.2.355 1945 Unknown [id number] 2.16.8 40.1.815601.3.579.2.355 1945 Unknown [id number] 2.16.8 40.1.211123.3.579.2.355 1945 Unknown [id number] 2.16.8 40.1.766627.3.579.2.355 1945 Unknown [id number] 2.16.8 40.1.343005.3.579.2.355 1945 Unknown [id number] 2.16.8 40.1.390545.3.579.2.355 1945 Unknown [id number] 2.16.8 40.1.895726.3.579.2.355 1945 Unknown [id number] 2.16.8 40.1.989576.3.579.2.355 1945 Unknown [id number] 2.16.8 40.1.697118.3.579.2.355 1945 Unknown [id number] 2.16.8 40.1.531351.3.579.2.355 1945 Unknown [id number] 2.16. 840.1.780557.3.579.2.356 1945 Unknown [id number] 2.16. 840.1.163268.3.579.2.356 1945 Unknown [id number] 2.16.84 0.1.490630.3.579.2.593 1945 Unknown [id number] 2.16.84 0.1.261113.3.579.2.593 1945 Unknown [id number] 2.16.84 0.1.092263.3.579.2.593 1945 Unknown [id number] 2.16.84 0.1.670077.3.579.2.593 1945 Unknown [id number] 2.16.84 0.1.659465.3.579.2.593 1945 Unknown [id number] 2.16.84 0.1.904659.3.579.2.593 1945 Unknown [id number] 2.16.84 0.1.464419.3.579.2.593 1945 Unknown [id number] 2.16.84 0.1.667824.3.579.2.593 1945 Unknown [id number] 2.16.84 0.1.789526.3.579.2.593 1945 Unknown [id number] 2.16.84 0.1.114137.3.579.2.593 1945 Unknown [id number] 2.16.84 0.1.931472.3.579.2.593 1945 Unknown [id number] 2.16.84 0.1.567488.3.579.2.593 1945 Unknown [id number] 2.16.84 0.1.371058.3.579.2.593 1945 Unknown [id number] 2.16.84 0.1.863511.3.579.2.593 1945 Unknown [id number] 2.16.84 0.1.765851.3.579.2.593 1945 Unknown [id number] 2.16.84 0.1.334113.3.579.2.593 1945 Unknown [id number] 2.16.84 0.1.874541.3.579.2.593 1945 Unknown [id number] 2.16. 840.1.737348.3.579.2.1244 1945 Unknown [id number] 2.16.8 40.1.917504.3.579.2.1244 1945 Unknown [id number] 2.16.84 0.1.017838.3.579.2.1259 1945 Unknown [id number] 2.16.84 0.1.566696.3.579.2.125 1945 Unknown [id number] 2.16.84 0.1.116141.3.579.2.1259 1945 Unknown [id number] 2.16.84 0.1.537775.3.579.2.125 1945 Unknown [id number] 2.16.84 0.1.012521.3.579.2.125 1945 Unknown [id number] 2.16.84 0.1.060462.3.579.2.1258 1945 Unknown [id number] 2.16.84 0.1.738410.3.579.2.1258 1945 Unknown [id number] 2.16.84 0.1.360534.3.579.2.1258 1945 Unknown [id number] 2.16.84 0.1.120068.3.579.2.1258 1945 Unknown [id number] 2.16.84 0.1.739142.3.579.2.1258 1945 Unknown [id number] 2.16.84 0.1.903982.3.579.2.9 1945 Unknown [id number] 2.16.84 0.1.620098.3.579.2.125 1945 Unknown [id number] 2.16.84 0.1.314999.3.579.2.125 1945 Unknown [id number] 2.16.84 0.1.404452.3.579.2.125 1945 Unknown [id number] 2.16.84 0.1.971471.3.579.2.125 1945 Unknown [id number] 2.16.84 0.1.848430.3.579.2.1259 Private Health Insurance 1.2 .[id number]26729.315 Unknown [id number] Medicare [id number] Social History Date Type Detail Facility Start: 05-19-2023 End: 05-12-2024 No alcohol use No alcohol use -[facility] 250 DO Work Phone: Start: 11-06-2022 End: 02-23-2023 Tobacco smoking status NHIS Never smoked tobacco [facility] Start: 11-06-2022 End: 02-23-2023 Tobacco use and exposure Smokeless tobacco non-user [facility] Start: 06-05-2023 End: 05-18-2024 Alcohol intake Lifetime non-drinker (finding) [facility] Start: 05-19-2023 End: 05-12-2024 Tobacco use panel [facility] Start: 1945 Sex Assigned At Not on file N [facility] Start: 09-28-2023 End: 05-16-2024 Alcoholic beverage intake Ex-drinker (finding) [facility] Work Phone: Start: 09-18-2023 End: 05-16-2024 Exposure to SARS-CoV-2 (event) Not sure [facility] Tobacco smoking status NHIS Unknown if ever smoked [facility] Work Phone: Start: 05-17-2024 Sex Female (finding) [facility] Start: 1945 Sex Assigned At Female F [facility] NEGATED: Highlighted rowStart: NINF History of tobacco use Passive smoker [facility] Medical Equipment Procedure Code Equipment Code Equipment Origin al Text Equipment Identifier Dates Blood Sugar Diagnostic (Onetouch Verio Test Strips) strip Start: 04-19-2024 Lancets (Onetouc h Delica Plus Lancet) 30 gauge misc Start: 04-19-2024 Clinical Notes 07-03-2020 to 05-18-2024 Chi Ledezma DO - 05/18/2024 9:30 AM Guillermo Urena MD - 05/16/2024 1:00 PM ESTPatient InstructionsAttachments Note Date & Type Note Facility 05-18-2024 Note Right Eye Reliability was good. Progression has been stable. Foveal threshold was normal. Findings include normal observations. Left Eye Reliability was borderline. Progression has been stable. Foveal threshold was normal. Findings include non-specific defects, generalized depression. [facility] 05-18-2024 History of Present illness Narrative Images from the original note were not included. Assessment/Plan Diagnoses and all orders for this visit: Type 2 diabetes mellitus without complication, without long-term current use of insulin - Diabetes Mellitus without sign of diabetic retinopathy on dilated retinal examination today OU: Discussed the pathophysiology of diabetes and its effect on the eye. Stressed the importance of strong glucose control. Advised of importance of at least yearly dilated examinations, but to contact us immediately for any problems or concerns. Rce (recurrent corneal erosion), left - Stable. No recurrences. Optimize lubrication. Keratoconjunctivitis sicca of both eyes not specified as Sjogren's - Keratoconjunctivitis sicca OU -- Environmental changes to minimize dryness and exposure and the use of artificial tears were recommended. Unable to obtain Restasis due to cost. Pt unable to tolerate Cequa. Hold on usage at this time. Will try to restart Restasis however she does not have Part D and this was the limiting step previously. Primary open angle glaucoma (POAG) of left eye, severe stage (CMS/HCC) - Primary open angle glaucoma OU - Importance of taking medications as prescribed was stressed. Patient was advised to report any inability or unwillingness to take medications or if cost is a concern. Patient must report any side effects that may develop. Patient must report any change in systemic medications as they may interact or interfere with their glaucoma medications. Patient will be dilated at least on an annual basis for optic nerve evaluation and will likely have an automated visual field examination at least once a year. It was explained to the patient that they might require additional treatment for intraocular pressure control such as laser therapy or surgical intervention. - Cont Pres Free Cosopt both eyes (OU) BID. Herpes simplex virus (HSV) stromal keratitis - Stable. No antiviral at this time. Cont Pred Acetate left eye (OS) daily documented in this encounter [facility] 05-16-2024 History of Present illness Narrative Subjective Lyric Juarez is a 78 y.o. female Chief Complaint Follow-up HPI 78-year-old white female who has previously followed with Dr. Watts for permanent atrial fibrillation. She has been treated with diltiazem 300 mg daily and Coumadin managed by the Coumadin clinic. She does have essential hypertension which consistently has been elevated in our office but she insists that her blood pressure reading at home are normal and so is the case at other doctors office. She brought with her lab data from April 2020 for which I reviewed with her. The outstanding abnormalities were creatinine clearance of 56 mL/min and significantly abnormal albuminuria at 570, normal is less than 30. Her LDL cholesterol 110 mg/dL. The patient has no discussion about these findings with her PCP. Her vitamin D level also came back at 31 which has been in the lower normal range. She denies any palpitations or dyspnea. She has had no bleeding complications. She had normal nuclear stress test in 2013. There has been no echocardiogram on file. Assessment/recommendations: 1-permanent atrial fibrillation, she is on diltiazem 30 mg daily. She is asymptomatic and continues on Coumadin therapy managed by the Coumadin clinic. Patient had no echocardiogram on file and she did have an echocardiogram to assess ejection fraction. 2-essential hypertension, uncontrolled. She insists that her pressure at home is normal, advised patient to continue to monitor blood pressure reading at home and Brings her machine to the office to ensure that it provides similar readings to our office machines, DASH diet was recommended and more weight loss and exercise was recommended as well. 3-type 2 diabetes, A1c recently 7.4. The patient is not on medical therapy. Advised patient discuss with her PCP starting medical therapy such as metformin. Low-calorie diet and more weight loss and exercise was recommended 4-high risk medication with Coumadin without any bleeding complications 5-dyslipidemia on pravastatin 40 mg daily, LDL cholesterol 110 mg/dL April 2024. 6- stage IIIa chronic kidney disease, GFR 56 mL/min. The pathophysiology of this was discussed with the patient, more aggressive treatment of diabetes and hypertension was recommended 7-vitamin D deficiency, encouraged the patient double the amount of vitamin D 3 up to 2000 unit daily 8-significant microalbuminuria, the patient was advised to discuss with her PCP the measures needed to control this problem 9-overweight, encouraged the patient for more weight loss with diet and exercise Review of Systems All other systems reviewed and are negative. Vitals: 05/16/24 1256 05/16/24 1313 BP: (!) 158/94 155/82 BP Location: Left arm Left arm Patient Position: Sitting Sitting Pulse: 88 Weight: 79.3 kg (174 lb 12.8 oz) Height: 1.676 m (5' 6 ) Objective [...] 1 DROP BEFORE BEDTIME, Disp: , Rfl: warfarin (Coumadin) 2.5 mg tablet, TAKE 1/2 TO 1 TABLET BY MOUTH DAILY OR DIRECTED BY [facility] (Patient taking differently: [facility]), Disp: 90 tablet, Rfl: 1 chlorthalidone (Hygroton) [...] once daily., Disp: 90 tablet, Rfl: 3 potassium chloride CR (Klor-Con M20) 20 mEq ER tablet, Take 2 tablets (40 mEq) by mouth once daily., Disp: 180 tablet, Rfl: 3 pravastatin (Pravachol) 40 mg tablet, Take 1 tablet (40 mg) by mouth once daily at bedtime., Disp: 90 tablet, Rfl: 3 Assessment/Plan 1. Chronic atrial fibrillation (Multi) Follow Up In Cardiology Follow Up In Cardiology Transthoracic Echo Complete dilTIAZem CD (Cardizem CD) 300 mg 24 hr capsule 2. Essential hypertension chlorthalidone (Hygroton) 25 mg tablet lisinopril 10 mg tablet 3. Hyperlipidemia, unspecified hyperlipidemia type 4. Palpitations 5. BMI 28.0-28.9,adult Transthoracic Echo Complete 6. Stage 3a chronic kidney disease (CKD) (Multi) 7. Never smoked tobacco 8. Hyperlipidemia, unspecified pravastatin (Pravachol) 40 mg tablet 9. Essential (primary) hypertension potassium chloride CR (Klor-Con M20) 20 mEq ER tablet Scribe Attestation By signing my name below, I, Mirna Montiel RN , Scribe attest that this documentation has been prepared under the direction and in the presence of Frandy Urena MD. Provider Attestation - Scribe documentation All medical record entries made by the Scribe were at my direction and personally dictated by me. I have reviewed the chart and agree that the record accurately reflects my personal performance of the history, physical exam, discussion and plan. documented in this encounter [facility] Work Phone: 05-16-2024 Instructions Mirna Buckley RN - 05/16/2024 1:00 PM EST Please bring all medicines, vitamins, and herbal supplements with you when you come to the office. Prescriptions will not be filled unless you are compliant with your follow up appointments or have a follow up appointment scheduled as per instruction of your physician. Refills should be requested at the time of your visit. BMI was above normal measurement. Current weight: 79.3 kg (174 lb 12.8 oz) Weight change since last visit (-) denotes wt loss -5.2 lbs Weight loss needed to achieve BMI 25: 20.2 Lbs Weight loss needed to achieve BMI 30: -10.7 Lbs Provided instructions on dietary changes Provided instructions on exercise. Bring bp cuff when you come to next visit The following attachments cannot be sent through Care Everywhere.DASH Diet (Uzbek)documented in this encounter [facility] Work Phone: 04-20-2024 Evaluation note Diagnosis Onset Date Resolution Essential (primary) hypertension acute April 20, 2024 10:19am Hyperlipidemia, unspecified September 20, 2015 acute April 20, 2024 10:19am Medicare annual wellness visit, subsequent acute April 20, 2024 10:19am Paroxysmal atrial fibrillation September 20, 2015 acute April 20, 2024 10:19am Screening mammogram for breast cancer acute April 20, 2024 10:19am Type 2 diabetes mellitus with hyperglycemia acute April 20, 2024 10:19am Vitamin D deficiency acute [facility]2023 10:19am CKD stage 3a, GFR 45-59 ml/min acute May 17, 2024 8:41am Type 2 diabetes mellitus with hyperglycemia acute May 17, 2024 8:41am [facility] Work Phone: 1(602) 987-569910-21-2024 History of Present illness Narrative* Milka Rich, ALEJANDRA - 02/29/2024 9:00 AM EDT HACK: Pt was seen for a 6 [...] working hearing aid. Otoscopy revealed minimal partially occlusive,cerumen in the left ear canal, which was removed without incident, using instrumentation. Tms visible post removal. Pt feels she must really push her hearing aid into her ear, and then she hears verywell. Reviewed proper insertion and pt did well. [...] arise in the interim. [id number] History of Present illness Narrative* Indra Alexander DPM - 01/28/2024 8:40 AM EDT Patient: Lyric Juarez : 1945 PCP: Felipe Johnson MD SUBJECTIVE This is a 78 y.o. female that presents today with a CC of elongated, thick nails. Pt states nails have been elongated and thick for many years and cause pain with ambulation in shoegear. Pt has tried previous treatment with minimal relief. Pt presents today for nail care and treatment. Positive history of venous stasis Patient presents today for follow up of skin lesion/neoplasm of unknown origin to the left foot Pt states that previous treatment of acid tx with some improvement Pt rates pain the pain on a 1-10 scale an intensity of 5 Pt presents today for followup. Allergies: Allergies Allergen Reactions Flecainide GI intolerance, Rash and Hives DECREASES HEART RATE, LOW PULSE Betamethasone GI intolerance STEROID RESPONDER. RAISES INTRA OCULAR PRESSURE Hydrocortisone Unknown Past Medical History: Past Medical History: Diagnosis Date Glaucoma ([facility]) HSV stromal keratitis Hypertension ([facility]) Pre-diabetes Recurrent corneal erosion Medications: Current Outpatient Medications: chlorthalidone (Hygroton) 25 MG tablet, Take 25 mg by mouth in the morning., Disp: , Rfl: clotrimazole-betamethasone (Lotrisone) cream, Apply topically 2 (two) times a day, Disp: , Rfl: cycloSPORINE, PF, (Cequa) 0.09 % solution, Administer 1 drop into affected eye(s) in the morning and 1 drop before bedtime., Disp: 60 each, Rfl: 7 dilTIAZem CD (Cardizem CD) 300 MG 24 hr capsule, Take 300 mg by mouth in the morning., Disp: , Rfl: Dorzolamide HCl-Timolol Mal PF 2-0.5 % solution, Administer 1 drop into both eyes in the morning and 1 drop before bedtime., Disp: 180 each, Rfl: 4 Enoxaparin Sodium (Lovenox) 80 MG/0.8ML solution prefilled syringe, Inject 80 mg under the skin., Disp: , Rfl: erythromycin (Romycin) 5 MG/GM ophthalmic ointment, APPLY A SMALL AMOUNT INTO LEFT EYE EVERY THREE HOURS WHILE AWAKE, Disp: , Rfl: estradiol (Estrace) 0.1 MG/GM vaginal cream, Insert 2 g into the vagina in the morning., Disp: , Rfl: KLOR-CON 20 MEQ ER tablet, Take 40 mEq by mouth in the morning., Disp: , Rfl: lisinopril 10 MG tablet, Take 10 mg by mouth in the morning., Disp: , Rfl: loteprednol (Lotemax) 0.5 % ophthalmic suspension, INSTILL 1 DROP INTO LEFT EYE THREE TIMES A DAY, Disp: 5 mL, Rfl: 3 pravastatin (Pravachol) 40 MG tablet, Take 40 mg by mouth at bedtime., Disp: , Rfl: prednisoLONE acetate (Pred-Forte) 1 % ophthalmic suspension, INSTILL 1 DROP IN LEFT EYE 3 TIMES DAILY, Disp: 15 mL, Rfl: 5 warfarin (Coumadin) 2.5 MG tablet, Take 2.5 mg by mouth., Disp: , Rfl: Social History: Social History Socioeconomic History Marital status: Spouse name: Not on file Number of children: Not on file Years of education: Not on file Highest education level: Not on file Occupational History Not on file Tobacco Use Smoking status: Never Passive exposure: Never Smokeless tobacco: Never Vaping Use Vaping status: Unknown Substance and Sexual Activity Alcohol use: Never Drug use: Never Sexual activity: Defer Partners: Decline to Answer Other Topics Concern Not on file Social History Narrative Not on file Social Determinants of Health Financial Resource Strain: Not on file Food Insecurity: Not on file Transportation Needs: Not on file Physical Activity: Not on file Stress: Not on file Social Connections: Not on file Intimate Partner Violence: Not on file Housing Stability: Not on file ROS: General: denies fever, chills, fatigue, malaise OBJECTIVE LE EXAM: DERM: Elongated thick yellow crumbly nails digits 1 through 10. Positive hair growth b/l feet. Plus1 pitting edema to bilateral ankles. Dry and scaly skin to bilateral feet plantarly Nummular lesion measuring at the left sub 2nd metatarsal region measuring 0.1cm x 0.1 cm. VASC: Positive palpable pedal pulses bilaterally NEURO: Gross sensation intact to bilateral feet ORTHO: Positive pain on palpation to nails 1 through 10 Positive pain on palpation left foot lesion ASSESSMENT 1. Verruca plantaris 2. Foot pain, left 3. Onychomycosis 4. Toe pain, bilateral 5. Venous insufficiency PLAN Discussed proper foot care with patient today. Debride nails in length and thickness digits 1 through 10 Application of salinocaine acid medication to lesion/lesions located at left foot Informed pt of risks and benefits of procedure including high reoccurence rate, infection, pain andconsent given. Application of DSD post procedure. Patient may take ouct-cya-ooucfut NSAID p.r.n. for pain Indra Alexander DPM documented in this encounterMosaic [facility] at St. [id number] History of Present illness Narrative* Chi Ledezma, - 01/08/2024 10:00 AM EDT Images from the original note were not included. Assessment/Plan Assessment/Plan Diagnoses and all orders for this visit: Rce (recurrent corneal erosion), left - Stable. No recurrences. Optimize lubrication. Keratoconjunctivitis sicca of both eyes not specified as Sjogren's - Keratoconjunctivitis sicca OU -- Environmental changes to minimize dryness and exposure and the use of artificial tears were recommended. Unable to obtain Restasis due to cost. Pt unable to tolerate Cequa. Hold on usage at this time. Primary open angle glaucoma (POAG) of left eye, severe stage (CMS/HCC) - Primary open angle glaucoma OU - Importance of taking medications as prescribed was stressed. Patient was advised to report any inability or unwillingness to take medications or if cost is a concern. Patient must report any side effects that may develop. Patient must report any change in systemic medications as they may interact or interfere with their glaucoma medications. Patient will be dilated at least on an annual basis for optic nerve evaluation and will likely have an automated visual field examination at least once a year. It was explained to the patient that they might require additional treatment for intraocular pressure control such as laser therapy or surgical intervention. - Cont Pres Free Cosopt both eyes (OU) BID. Herpes simplex virus (HSV) stromal keratitis - Stable. No antiviral at this time. Cont Pred Acetate left eye (OS) daily documented in this encounterMosaic Life Care at St. [id number] History of Present illness Narrative* Karson Watts MD - 09/28/2023 8:40 AM EDT Subjective Lyric Juarez is a 78 y.o. [...] in therapy. She was educated regarding the rationalefor care as well as cardiac signs and [...] 1 capsule (50 mcg) by mouth early inthe morning.., Disp: , Rfl: dorzolamide-timolol, PF, (Cosopt) 2-0.5 % ophthalmic solution, PLACE 1 DROP INTO AFFECTED EYE(S) INTHE MORNING AND 1 DROP BEFORE BEDTIME, Disp: [...] TABLET BY MOUTH DAILY OR DIRECTED BY [facility], Disp: 90 tablet, Rfl: 1 chlorthalidone (Hygroton) [...] below, I, Maria E MccarthyJosr BOWDEN , Conradibterese attest that this documentation has been prepared under the direction and in the presence of Ed Watts MD. Provider Attestation - Scribe documentation All medical record entries made by the Scribe were at my direction and personally dictated by me. Ihave reviewed the chart and agree that the record accurately reflects my personal performance of the history, physical exam, discussion and plan. documented in this encounterUniversity [facility] Work Phone: 1(197) 367-561805-20-2024 Instructions* Patient Instructions* Kim Pickett LPN - 09/28/2023 8:40 AM [...] time of your visit. documented in this encounterUniversity Hospitals [facility] Work Phone: 1(200) 275-190503-10-2021 NoteHNO ID: [id number] Author: Chi Faustin Service: ? Author Type: Physician Type: Progress Notes Filed: 07/18/2020 9:56 AM Note Text: Tmax: 44, 39; Pachy: 489, 574 Lasers and Surgeries: OD: 07/12/[address] [place], place [place] 01/19/20 [facility] exchange for erosion (Avril Michaels) 02/10/18 [place] IOP=44 ([place]) OS: 05/19/18 KIERA ([place]) for IOP 29 05/19/2018? Express Ocular Medication [...] Resident By signing my name below, I, Christina Bass, attest that this documentation has been prepared [...] Chi Faustin MD, July 18, 2020 9:53 AM.[facility]03-05-2021 NoteHNO ID: [id number] Author: Chi Faustin Service: ? Author Type: Physician Type: Progress Notes Filed: 07/13/2020 9:23 AM Note Text: Tmax: 44, 39; Pachy: 489, 574 Lasers and Surgeries: OD: 07/12/[address] [place], place [place] 01/19/20 [place] exchange for erosion (Avril Michaels) 02/10/18 KIERA IOP=44 ([place]) OS: 05/19/18 KIERA ([place]) for IOP 29 05/19/2018? Express Ocular Medication [...] By signing my name below, I, Christina Muñozlynettearlene, attest that this documentation has been prepared [...] Chi Faustin MD, July 13, 2020 9:18 AM.[facility]02-24-2021 NoteHNO ID: [id number] Author: Chi Faustin Service: ? Author Type: Physician Type: Progress Notes Filed: 07/04/2020 9:13 AM Note Text: Tmax: 44, 39; Pachy: 489, 574 Lasers and Surgeries: OD: 01/19/20 KIER[place] exchange for erosion (Avril Brando) 02/10/18 KIERA IOP=44 ([place]) OS: 05/19/18 KIERA ([place]) for IOP 29 05/19/2018? Express Ocular Medication [...] Faustin MD, July 04, 2020 8:58 AM. [facility]02-23-2021 NotePatient Outreach (COVAMN) LYRIC JUAREZ ([id number]) 1945 F Date Time Provider Department 07/03/20 [...] Fully Assessed Order(s):SARS-COVID VACCINE 1ST DOSE APPT [[id number]] Order #: [id number] FUTURE Prescriptions as of 07/03/2020 Sig: DORZOLAMIDE-TIMOLOL [...] More... Encounter Status:Closed by EPIC, PRODUSER on 07/06/20[facility] Evaluation note* Diagnosis Rce (recurrent corneal erosion), left- Primary documented in this encounter [facility] HealthcareEvaluation note* Diagnosis Chronic atrial fibrillation (Multi)- Primary Atrial fibrillation Essential hypertension Unspecified essential hypertension Mixed hyperlipidemia Hyperlipidemia, unspecified documented in this encounter [facility] Work Phone: Evaluation note* Diagnosis Mixed conductive and sensorineural hearing loss of left ear with restricted hearing of right ear- Primary documented in this encounter [facility] HealthcareEvaluation note* Diagnosis Primary open angle glaucoma (POAG) of both eyes, mild stage (CMS/HCC)- Primary Rce (recurrent corneal erosion), left Keratoconjunctivitis sicca of both eyes not specified as Sjogren's Herpes simplex virus (HSV) stromal keratitis Type 2 diabetes mellitus without complication, without long-term current use of insulin (CMS/HCC) documented in this encounter [facility] HealthcareEvaluation note* Diagnosis Verruca plantaris- Primary Plantar wart Foot pain, left Pain in soft tissues of limb Onychomycosis Dermatophytosis of nail Toe pain, bilateral Venous insufficiency Unspecified venous (peripheral) insufficiency documented in this encounter [facility] HealthcareEvaluation note* Diagnosis Verruca plantaris- Primary Plantar wart Foot pain, left Pain in soft tissues of limb Pain due to onychomycosis of toenails of both feet Venous insufficiency Unspecified venous (peripheral) insufficiency documented in this encounter [facility] HealthcareEvaluation note* Diagnosis Permanent atrial fibrillation (Multi)- Primary Atrial fibrillation Essential hypertension Unspecified essential hypertension Hyperlipidemia, unspecified hyperlipidemia type Stage 3a chronic kidney disease (Multi) Palpitations BMI 28.0-28.9,adult Stage 3a chronic kidney disease (CKD) (Multi) Never smoked tobacco Essential (primary) hypertension Unspecified essential hypertension Microalbuminuria Proteinuria documented in this encounter [facility] Work Phone: Evaluation note* Diagnosis Primary open angle glaucoma (POAG) of both eyes, mild stage (CMS/HCC)- Primary Herpes simplex virus (HSV) stromal keratitis Keratoconjunctivitis sicca of both eyes not specified as Sjogren's Type 2 diabetes mellitus without complication, without long-term current use of insulin (CMS/HCC) Rce (recurrent corneal erosion), left documented in this encounter [facility] HealthcareHistory of Present illness NarrativeReturns in follow-up [...] Fortunately shehas a lot of local family support.[facility] DO Work Phone: History of Present illness [...] the merits of diet exercise and weight loss.-[facility] [address] DO Work Phone: History of Present illness Narrative* Indra Alexander, DPTrinity - 05/12/2024 10:10 AM EST Patient: Lyric Juarez : 1945 PCP: Felipe Johnson MD SUBJECTIVE This is a 78 y.o. female that presents today with a CC of elongated, thick nails. Pt states nails have been elongated and thick for many years and cause pain with ambulation in shoegear. Pt has tried previous treatment with minimal relief. Pt presents today for nail care and treatment. Positive history of venous stasis Patient presents today for follow up of skin lesion/neoplasm of unknown origin to the left foot Pt states that previous treatment of acid tx with some improvement Pt rates pain the pain on a 1-10 scale an intensity of 3 Pt presents today for followup. Allergies: Allergies Allergen Reactions Flecainide GI intolerance, Rash and Hives DECREASES HEART RATE, LOW PULSE Betamethasone GI intolerance STEROID RESPONDER. RAISES INTRA OCULAR PRESSURE Hydrocortisone Unknown Past Medical History: Past Medical History: Diagnosis Date Glaucoma ([facility]) HSV stromal keratitis Hypertension ([facility]) Pre-diabetes Recurrent corneal erosion Medications: Current Outpatient Medications: chlorthalidone (Hygroton) 25 MG tablet, Take 25 mg by mouth in the morning., Disp: , Rfl: clotrimazole-betamethasone (Lotrisone) cream, Apply topically 2 (two) times a day, Disp: , Rfl: cycloSPORINE, PF, (Cequa) 0.09 % solution, Administer 1 drop into affected eye(s) in the morning and 1 drop before bedtime., Disp: 60 each, Rfl: 7 dilTIAZem CD (Cardizem CD) 300 MG 24 hr capsule, Take 300 mg by mouth in the morning., Disp: , Rfl: Dorzolamide HCl-Timolol Mal PF 2-0.5 % solution, Administer 1 drop into both eyes in the morning and 1 drop before bedtime., Disp: 180 each, Rfl: 4 Enoxaparin Sodium (Lovenox) 80 MG/0.8ML solution prefilled syringe, Inject 80 mg under the skin., Disp: , Rfl: erythromycin (Romycin) 5 MG/GM ophthalmic ointment, APPLY A SMALL AMOUNT INTO LEFT EYE EVERY THREE HOURS WHILE AWAKE, Disp: , Rfl: estradiol (Estrace) 0.1 MG/GM vaginal cream, Insert 2 g into the vagina in the morning., Disp: , Rfl: KLOR-CON 20 MEQ ER tablet, Take 40 mEq by mouth in the morning., Disp: , Rfl: lisinopril 10 MG tablet, Take 10 mg by mouth in the morning., Disp: , Rfl: loteprednol (Lotemax) 0.5 % ophthalmic suspension, INSTILL 1 DROP INTO LEFT EYE THREE TIMES A DAY, Disp: 5 mL, Rfl: 3 pravastatin (Pravachol) 40 MG tablet, Take 40 mg by mouth at bedtime., Disp: , Rfl: prednisoLONE acetate (Pred-Forte) 1 % ophthalmic suspension, INSTILL 1 DROP IN LEFT EYE 3 TIMES DAILY, Disp: 15 mL, Rfl: 5 warfarin (Coumadin) 2.5 MG tablet, Take 2.5 mg by mouth., Disp: , Rfl: Social History: Social History Socioeconomic History Marital status: Spouse name: Not on file Number of children: Not on file Years of education: Not on file Highest education level: Not on file Occupational History Not on file Tobacco Use Smoking status: Never Passive exposure: Never Smokeless tobacco: Never Vaping Use Vaping status: Unknown Substance and Sexual Activity Alcohol use: Never Drug use: Never Sexual activity: Defer Partners: Decline to Answer Other Topics Concern Not on file Social History Narrative Not on file Social Drivers of Health Financial Resource Strain: Not on file Food Insecurity: Not on file Transportation Needs: Not on file Physical Activity: Not on file Stress: Not on file Social Connections: Not on file Intimate Partner Violence: Not on file Housing Stability: Not on file ROS: General: denies fever, chills, fatigue, malaise OBJECTIVE LE EXAM: DERM: Elongated thick yellow crumbly nails digits 1 through 10. Positive hair growth b/l feet. Plus1 pitting edema to bilateral ankles. Greatly diminished Dry and scaly skin to bilateral feet plantarly Nummular lesion measuring at the left sub 2nd metatarsal region measuring 0.2cm x 0.1 cm. VASC: Positive palpable pedal pulses bilaterally NEURO: Gross sensation intact to bilateral feet ORTHO: Positive pain on palpation to nails 1 through 10 Positive pain on palpation left foot lesion ASSESSMENT 1. Verruca plantaris 2. Foot pain, left 3. Pain due to onychomycosis of toenails of both feet 4. Venous insufficiency PLAN Discussed proper foot care with patient today. Debride nails in length and thickness digits 1 through 10 Application of salinocaine acid medication to lesion/lesions located at left foot Informed pt of risks and benefits of procedure including high reoccurence rate, infection, pain andconsent given. Application of DSD post procedure. Indra Alexander DPM [facility] (narrative)* Consultation (Routine) - Authorized Specialty Diagnoses / Procedures Referred By Gracy t Referred To Contact Cardiology Diagnoses Chronic atrial fibrillation (Multi) Procedures Follow Up In Cardiology Karson Watts MD [address] [place] [address], [address] [address] Frandy Urena MD 3 [facility] 2, [address] [address] Referral ID Status Reason Start Date Expiration Date V isits Requested Visits Authorized [id number] Authorized 09/28/2023 09/27/2024 1 1 [facility] Work Phone: Summary Purpose Family History No [...] erotic cardiovascular disease: Mother, Father(V17.49, Z82.49) Status:Active Relationship Condition Age at Onset Recorded Date/T thiago father Unknown mother Unknown Advance Directives No Advanced Directives Records Found Advance Directive Response Recorded Date/ Time Advance Directives No May 16, 2024 2:52pm Chief Complaint LYRIC JUAREZ is being seen for a 7 month follow-up of.LYRIC JUAREZ is being seen for a 6 month follow-up of. Chief Complaint and Reason for Visit Chief Complaint Admit Date CC Adult Risk Stratification April 192023 3:56pm Wellness April 20, 2024 10:19am Discuss BW Results May 17, 2024 8: 41am Reason for Visit Admit Date Essential (primary) hypertension Decembe r 2023 10:19am Hyperlipidemia, unspecified April 10:19am Medicare annual wellness visit, subseque nt April 20, 2024 10:19am Paroxysmal atrial fibrillation April 20, 2024 10:19am Screening mammogram for breast cancer [facility] 10:19am Type 2 diabetes mellitus with hyperglyce guanaco April 20, 2024 10:19am Vitamin D deficiency April 20, 2024 10:19am CKD stage 3a, GFR 45-59 ml/min May 172024 8:41am Type 2 diabetes mellitus with hyperglyce guanaco May 17, 2024 8:41am Additional Source Comments INFORMATION SOURCE (unrecogn ized section and content) DATE CREATED AUTHOR 08/04/2018 [facility] DATE CREATED AUTHOR AUTHOR'S ORGANIZ ATION 10/14/2019 [facility] DATE CREATED AUTHOR AUTHOR'S ORGANIZ ATION 06/16/2021 [facility] DATE CREATED AUTHOR AUTHOR'S ORGANIZ ATION 02/13/2022 [facility] DATE CREATED AUTHOR AUTHOR'S ORGANIZ ATION 02/13/2022 [facility] DATE CREATED AUTHOR AUTHOR'S ORGANIZ ATION 10/17/2022 [facility] DATE CREATED AUTHOR AUTHOR'S ORGANIZ ATION 05/22/2024 [facility] DATE CREATED AUTHOR AUTHOR'S ORGANIZ ATION 05/23/2024 [facility] EPIC Reason for Visit (unrecogniz ed section and content) Reason Onset Date Comments Med Refill 06/15/2023 Reason Comments Follow-up 9-12m Reason Comments Follow-up Reason Comments Toenail Care Non dm nail care Reason Comments Toenail Care Non DM Nails Reason Comments Follow-up 6 month Specialty Diagnoses / Procedures Referred By Contkatelin t Referred To Contact Cardiology Diagnoses Chronic atrial fibrillation (Multi) Procedures Follow Up In Cardiology Karson Watts MD Ibrahim, Hassan M, MD [address] [facility] 2, [address] [address] Phone: tel: fax: Referral ID Status Reason Start Date Expiration Date V isits Requested Visits Authorized [id number] Authorized 09/28/2023 09/27/2024 1 1 Care Teams (unrecognized sec tion and content) Civil Service Clerk Relationship Specialty Start Date End Date Felipe Johnson MD [address] [place] [address] PCP - General Family Medicine 11/12/22 Civil Service Clerk Relationship Specialty Start Date End Date Felipe Johnson MD [address] [place] [address] PCP - General 08/18/18 Civil Service Clerk Relationship Specialty Start Date End Date Felipe Johnson MD [address] [place] [id number] PCP - General Family Medicine 02/16/24 Civil Service Clerk Relationship Specialty Start Date End Date Felipe Johnson MD [address] [place] [address] PCP - General Family Medicine 02/16/24 Civil Service Clerk Relationship Specialty Start Date End Date Felipe Johnson MD PCP - General Family Medicine 11/12/22 Civil Service Clerk Relationship Specialty Start Date End Date Felipe Johnson MD PCP - General Family Medicine 11/12/22 Civil Service Clerk Relationship Specialty Start Date End Date Felipe Johnson MD PCP - General Family Medicine 11/12/22 Civil Service Clerk Relationship Specialty Start Date End Date Felipe Johnson MD PCP - General Family Medicine 11/12/22 Civil Service Clerk Relationship Specialty Start Date End Date Felipe Johnson MD [address] [place] [facility] [phone] PCP - General Family Medicine 02/16/24 Civil Service Clerk Relationship Specialty Start Date End Date Felipe Johnson MD [address] [place] [facility] [phone] PCP - General Family Medicine 02/16/24 Civil Service Clerk Relationship Specialty Start Date End Date Felipe Johnson MD [address] [place] [facility] [place] [address] PCP - General 08/18/18 Karson Watts MD Retired From Practice PCP - [facility] Attributed Provider 08/10/23 Civil Service Clerk Relationship Specialty Start Date End Date Felipe Johnson MD [address] [place] [facility] [phone] PCP - General Family Medicine 02/16/24 Team Status: Active Member Role Status Dates Felipe Johnson MD Primary Care Provider Active Team Status: Active Member Role Status Dates Felipe Johnson MD Primary Care Provide r, Attending Provider Active Start: April 19, 2024 Team Status: Inactive Member Role Status Dates Felipe Johnson MD Primary Care Provide r, Attending Provider Active Start: April 20, 2024 End: April 20, 2024 Team Status: Active Member Role Status Dates Felipe Johnson MD Primary Care Provide r, Attending Provider Active Start: April 25, 2024 Team Status: Inactive Member Role Status Dates Felipe Johnson MD Primary Care Provide r, Attending Provider Active Start: May 17, 2024 End: May 17, 2024 Goals (unrecognized section and content) Goals may be documented in a n alternate section FOR RECORDS PERTAINING TO PATIENTS WHO ARE [...] BE BASED ON THE PRIMARY CLINICAL RECORDS. [facility] [employer] [facility]. provides no warranty or guarantee of the accuracy or completeness of information in this document.
[2024-06-11 15:39] LABS: Glucometer 267 mg/dL (74-106)
--- NOTE | 2024-06-11 15:44 | XR_ITS ---
The [address] [address] Patient Name: LYRIC JUAREZ MRN: [facility]:[id number] date: 1945 Sex: F Assigned Patient Location: ED.MAIN Current Patient Location: ER Accession/Order Number: [id number] Exam Date: 06/11/2024 16:40 Report Date: 06/11/2024 18:32 At the request of: ERMELINDA BULLARD Procedure: XR chest 1V PORTABLE CHEST X-RAY. CLINICAL HISTORY: fall and fever COMPARISON: None. TECHNIQUE: Single AP portable chest radiograph. FINDINGS: TUBES AND LINES: None. LUNGS: Lungs are clear. PLEURA: No effusions or pneumothorax. HEART AND MEDIASTINUM: Within normal limits for portable technique. OSSEOUS STRUCTURES: No acute abnormality. XR/XR chest 1V IMPRESSION: No acute findings. Electronically authenticated by: KEISHA BRADFORD Date: 06/11/2024 18:32
--- NOTE | 2024-06-11 15:44 | ECG_ITS ---
The [facility] Test Date: 2024-06-11 Pat Name: LYRIC JUAREZ Department: Room: - Gender: Female Reconciler: : 1945 Requested By: FELIPE JOHNSON Order Number: [id number] Reading MD: EVER TROY Measurements Intervals [place] Rate: 116 P: -55813 NC: -49829 QRS: -80 QRSD: 88 T: 71 QT: 298 QTc: 367 Interpretive Statements 82312 Atrial fibrillation with rapid ventricular response 7200 Abnormal left axis deviation 8102 Low QRS voltage in chest leads 9150 abnormal ECG No previous ECG available for comparison Electronically Signed On 06-12-2024 7:39:11 EST by EVER TROY
--- NOTE | 2024-06-11 15:44 | CT_ITS ---
The [address] [address] Patient Name: LYRIC JUAREZ MRN: [facility]:[id number] date: 1945 Sex: F Assigned Patient Location: ED.MAIN Current Patient Location: ER Accession/Order Number: [id number] Exam Date: 06/11/2024 16:40 Report Date: 06/11/2024 18:28 At the request of: ERMELINDA BULLARD Procedure: CT cervical spine wo con CT CERVICAL SPINE WITHOUT IV CONTRAST. CLINICAL HISTORY: fall COMPARISON: There are no prior studies available for comparison. TECHNIQUE: CT of the cervical spine without contrast. Orthogonal sagittal and coronal multiplanar reformatted images were created. . FINDINGS: BONY ALIGNMENT: There is normal cervical lordosis. No spondylolisthesis. VERTEBRAL BODY: No acute fracture of the cervical spine. There is moderate to severe multilevel degenerative spondylosis. CENTRAL CANAL/NEURAL FORAMINA: No high-grade central canal or neuroforaminal stenosis. SOFT TISSUE: No mass or inflammation. UPPER LUNGS: No acute findings. CT/CT cervical spine wo con IMPRESSION: No acute cervical spinal fracture. Electronically authenticated by: KEISHA BRADFORD Date: 06/11/2024 18:28
--- NOTE | 2024-06-11 15:45 | CT_ITS ---
The [address] [address] Patient Name: LYRIC JUAREZ MRN: [facility]:[id number] date: 1945 Sex: F Assigned Patient Location: ED.MAIN Current Patient Location: Accession/Order Number: [id number] Exam Date: 06/11/2024 16:40 Report Date: 06/11/2024 17:36 At the request of: ERMELINDA BULLARD Procedure: CT head/brain wo con EXAM: CT head/brain wo con HISTORY: fall COMPARISON: None. TECHNIQUE: Axial CT scans through the head were obtained without IV contrast administration. Dose reduction techniques were achieved by using: automated exposure control and/or adjustment of mA and /or kV according to patient size and/or use of iterative reconstruction technique. FINDINGS: There is no evidence of acute intracranial hemorrhage or abnormal extra-axial fluid collection. No mass effect or midline shift is seen. There is no evidence of large acute territorial infarction. There is no hydrocephalus. There is age appropriate mild cerebral atrophy. There are prominent perivascular spaces or old lacunar infarcts in bilateral inferior basal ganglia. Mild decreased attenuation of the supratentorial white matter, likely represents chronic microvascular ischemia. To the limit of CT, the posterior fossa appears unremarkable. There are atherosclerotic calcifications of cavernous segments of bilateral internal carotid arteries. No definite acute fracture is identified. Soft tissues are unremarkable. The visualized orbits show no abnormality. The visualized paranasal sinuses show no air-fluid level. There are partial opacifications of bilateral ethmoid air cells. Mastoid air cells are clear. CT/CT head/brain wo con IMPRESSION: No CT evidence of acute intracranial abnormality. Mild senescent changes, as described. Electronically authenticated by: NILDA MORAU Date: 06/11/2024 17:36
[2024-06-11 16:00] LABS: Hematocrit 38.3 % (36.0-48.0); Hemoglobin 13.1 g/dL (12.0-16.0); Mean Corpuscular HGB Conc 34.2 g/dL (29.9-35.2); Mean Corpuscular Hemoglobin 30.5 pg (26.7-34.0); Mean Corpuscular Volume 89.1 fL (81.0-99.0); Mean Platelet Volume 9.7 fL (9.5-13.5); Platelet Count 315 10^3/uL (150-450); White Blood Count 11.7 10^3/uL (4.0-11.0)
--- NOTE | 2024-06-11 16:02 | ED_ITS ---
HPI HPI - General Adult General Chief complaint: Fall Stated complaint: Fall Time Seen by Provider: 06/11/24 15:29 Source: patient Mode of arrival: Wheelchair Limitations: no limitations History of Present Illness HPI narrative: The patient presented to us with her family after they found her on the floor after she fell, was not able to stand up and she was found to be weak, the patient herself denies any complaint although she did mention some time that she was dizzy before the fall, and she denied that after a while, the patient denies any chest pain nausea vomiting she also denies any abdominal pain she presented to us febrile Related Data Home Medications ?Medication ?Instructions ?Recorded ?Confirmed chlorthalidone 25 mg tablet mg 06/11/24 diltiazem HCl 300 mg mg PO 06/11/24 capsule,extended release 24 hr lisinopril 10 mg tablet mg 06/11/24 metformin 500 mg tablet,extended mg PO 06/11/24 release 24 hr potassium chloride 20 mEq meq PO 06/11/24 tablet,extended release(part/cryst) (Klor-Con M) pravastatin 40 mg tablet mg 06/11/24 prednisolone acetate 1 % eye drp ophthalmic (eye) 06/11/24 drops,suspension warfarin 2.5 mg tablet mg 06/11/24 Allergies Allergy/AdvReac Type Severity Reaction Status Date / Time No Known Drug Allergies Allergy Verified 06/11/24 15:33 Opioid HPI Opioid Management Most Recent Opioid Data: Last JUL Pain Assessment 06/11/24 16:14 Review of Systems ROS Status of ROS 10 or more systems reviewed and unremark able except as noted in history and below [facility] Medical History (Updated 06/11/24 @ 19:06 by Elena De La Garza MD) Stage 3 chronic kidney disease ?N18.30 - Chronic kidney disease, stage 3 unspecified (ICD-10) Hypertension ?I10 - Essential (primary) hypertension (ICD-10) Type 2 diabetes mellitus ?E11.9 - Type 2 diabetes mellitus without complications (ICD-10) Afib ?I48.91 - Unspecified atrial fibrillation (ICD-10) Social History Little interest or pleasure in doing things: not at all Feeling down, depressed, or hopeless: not at all Exam Narrative Exam Narrative: Nurses notes and vital signs reviewed and patient is not hypoxic. General: Well-appearing and in no apparent distress. Skin: Warm, dry, no pallor noted. No rash. Head: Normocephalic, atraumatic. Neck: Supple, non-tender. Eye: Pupils are equal, round and EOMI. No scleral icterus. Ears, Nose, Mouth, and Throat: TM are clear, no nasal mucosal hypertrophy. Oral mucosa is moist, no posterior oropharynx erythema, uvula is mid-line Cardiovascular: Irregular rate and Rhythm without murmur, gallop or rub. Respiratory: No accessory muscle use or respiratory distress. Lungs are clear to auscultation, no wheezing, rales or rhonchi Chest Wall: no tenderness Back: No midline thoracic or lumbar vertebral tenderness. No CVA tenderness Musculoskeletal: normal ROM, no calf or popliteal tenderness, no lower extremity edema/swelling GI: Abdomen is soft, non-distended. Normal bowel sounds. No masses appreciated. No tenderness to palpation. No rebound, guarding, or rigidity noted. Neurological: A&O x4. No cranial nerve dysfunction observed. No truncal ataxia. Moves all extremities. Sensation intact. Psychiatric: Cooperative and interactive. Normal mood and affect. Constitutional Vital Signs, click to edit/add: Last Vital Signs Temp 99.2 F 06/11/24 17:49 Pulse 96 H 06/11/24 16:00 Resp 17 06/11/24 16:00 BP 113/86 06/11/24 15:30 Pulse Ox 95 06/11/24 16:00 O2 Del Method Room Air 06/11/24 15:30 Course Vital Signs Vital signs: Vital Signs Pulse Rate 115 H 06/11/24 15:28 Respiratory Rate 26 H 06/11/24 15:28 Pulse Oximetry 95 06/11/24 15:28 Temperature 99.2 F 06/11/24 17:49 Pulse Rate 96 H 06/11/24 16:00 Respiratory Rate 17 06/11/24 16:00 Blood Pressure 113/86 06/11/24 15:30 Pulse Oximetry 95 06/11/24 16:00 Oxygen Delivery Method Room Air 06/11/24 15:30 Medical Decision Making [facility] Narrative Medical decision making narrative: The patient EKG upon arrival showing A-fib with a heart rate of [address] elevation or depression The patient was found to have a normal chest x-ray with a COVID-positive She was never hypoxemic but she presented to us tachycardic and her fever responded to Tylenol and heart rate responded to IV fluid as well The patient was provided with normal saline and that lactic acid responded to 1.3 Patient initial troponin was 500 and went up to 3000 I discussed the case with the corporate coordinator on-call Dr. Alex and he initially wanted the patient be started on aspirin , since the patient INR is 2 the patient need no heparin at the moment The patient requested to be transferred to [facility] I spoke with corporate coordinator Dr Cabrera and she accepted pt Patient magnesium was 1.1 and she also had supplemental magnesium Lab Data Labs: Lab Results 06/11/24 06/11/24 06/11/24 Range/Units 15:38 15:46 16:20 WBC 11.7 H (4.0-11.0) 10^3/uL RBC 4.30 (4.20-5.40) 10^6/uL Hgb 13.1 (12.0-16.0) g/dL Hct 38.3 (36.0-48.0) % MCV 89.1 (81.0-99.0) fL MCH 30.5 (26.7-34.0) pg MCHC 34.2 (29.9-35.2) g/dL RDW 13.0 (11.0-15.0) % Plt Count 315 (150-450) 10^3/uL MPV 9.7 (9.5-13.5) fL Seg Neuts % (Manual) 87.0 H (43.0-75.0) Lymphocytes % (Manual) 4.0 L (20.5-60.0) % Monocytes % (Manual) 9.0 (1.7-12.0) % Eosinophils % (Manual) 0.0 L (0.9-7.0) % Basophils % (Manual) 0.0 L (0.2-2.0) % Neutrophils # (Manual) 10.17 H (1.4-6.5) 10^3/uL Lymphocytes # (Manual) 0.46 L (1.20-3.80) 10^3/uL Monocytes # (Manual) 1.05 H (0.30-0.80) 10^3/uL Eosinophils # (Manual) 0.00 (0.00-0.70) 10^3/uL Basophils # (Manual) 0.00 (0.00-0.10) 10^3/uL PT 19.8 H (9.0-11.6) sec INR 2.00 Sodium 123 L* (136-145) mmol/L Potassium 4.2 (3.5-5.1) mmol/L Chloride 87 L (98-107) mmol/L Carbon Dioxide 21.0 (21.0-32.0) mmol/L Anion Gap 19.2 BUN 21.0 H (7.0-18.0) mg/dL Creatinine 1.43 H (0.55-1.02) mg/dL Est GFR ( Amer) 43 L (>=60 mL/min/1.73m^2) Est GFR (Non-Af Amer) 35 L (>=60 mL/min/1.73m^2) BUN/Creatinine Ratio 14.7 Glucose 236 H (74-106) mg/dL Lactate 2.8 H* (0.4-2.0) mmol/L Calcium 9.0 (8.5-10.1) mg/dL Magnesium 1.1 L (1.8-2.4) mg/dL Total Bilirubin 0.8 (0.2-1.0) mg/dL AST 25 (15-37) U/L ALT 19 (14-59) U/L Alkaline Phosphatase 72 (46-116) U/L Total Creatine Kinase (26-192) U/L Troponin I High Sens 544.0 H* (4.0-51.3) pg/mL Total Protein 7.2 (6.4-8.2) g/dL Albumin 3.8 (3.4-5.0) g/dL Globulin 3.4 g/dL Albumin/Globulin Ratio 1.1 Urine Color (YELLOW) Urine Clarity (CLEAR) Urine pH (5.0-9.0) Ur Specific [place] (1.005-1.025) Urine Protein (NEG/TRACE) mg/dL Urine Glucose (UA) (NEGATIVE) mg/dL Urine Ketones (NEGATIVE) mg/dL Urine Occult Blood (NEGATIVE) Urine Nitrite (NEGATIVE) Urine Bilirubin (NEGATIVE) Urine Urobilinogen (0.2-1.0) EU/dL Ur Leukocyte Esterase (NEGATIVE) Urine RBC (0-2) #/HPF Urine WBC (NONE SEEN) #/HPF Ur Squamous Epith Cells (NONE/RARE) #/LPF Urine Crystals (None Seen) #/HPF Urine Bacteria (NONE SEEN) #/HPF Urine Casts (NONE SEEN) #/LPF Hyaline Casts Urine Mucus (NONE SEEN) Ur Culture Indicated? Influenza Type A Ag Negative Influenza Type B Ag Negative RSV Antigen Not detected (NOT DETECTE) SARS-CoV-2 Ag (CV2AG) Positive A (NEGATIVE) POC Glucose 267 H (74-106) mg/dL 06/11/24 06/11/24 Range/Units 17:21 18:26 WBC (4.0-11.0) 10^3/uL RBC (4.20-5.40) 10^6/uL Hgb (12.0-16.0) g/dL Hct (36.0-48.0) % MCV (81.0-99.0) fL MCH (26.7-34.0) pg MCHC (29.9-35.2) g/dL RDW (11.0-15.0) % Plt Count (150-450) 10^3/uL MPV (9.5-13.5) fL Seg Neuts % (Manual) (43.0-75.0) Lymphocytes % (Manual) (20.5-60.0) % Monocytes % (Manual) (1.7-12.0) % Eosinophils % (Manual) (0.9-7.0) % Basophils % (Manual) (0.2-2.0) % Neutrophils # (Manual) (1.4-6.5) 10^3/uL Lymphocytes # (Manual) (1.20-3.80) 10^3/uL Monocytes # (Manual) (0.30-0.80) 10^3/uL Eosinophils # (Manual) (0.00-0.70) 10^3/uL Basophils # (Manual) (0.00-0.10) 10^3/uL PT (9.0-11.6) sec INR Sodium (136-145) mmol/L Potassium (3.5-5.1) mmol/L Chloride (98-107) mmol/L Carbon Dioxide (21.0-32.0) mmol/L Anion Gap BUN (7.0-18.0) mg/dL Creatinine (0.55-1.02) mg/dL Est GFR ( Amer) (>=60 mL/min/1.73m^2) Est GFR (Non-Af Amer) (>=60 mL/min/1.73m^2) BUN/Creatinine Ratio Glucose (74-106) mg/dL Lactate 1.3 (0.4-2.0) mmol/L Calcium (8.5-10.1) mg/dL Magnesium (1.8-2.4) mg/dL Total Bilirubin (0.2-1.0) mg/dL AST (15-37) U/L ALT (14-59) U/L Alkaline Phosphatase (46-116) U/L Total Creatine Kinase 318 H (26-192) U/L Troponin I High Sens 3123.3 H* (4.0-51.3) pg/mL Total Protein (6.4-8.2) g/dL Albumin (3.4-5.0) g/dL Globulin g/dL Albumin/Globulin Ratio Urine Color Lt. yellow (YELLOW) Urine Clarity Clear (CLEAR) Urine pH 5.5 (5.0-9.0) Ur Specific [place] 1.025 (1.005-1.025) Urine Protein 100 A (NEG/TRACE) mg/dL Urine Glucose (UA) Negative (NEGATIVE) mg/dL Urine Ketones 15 A (NEGATIVE) mg/dL Urine Occult Blood Small A (NEGATIVE) Urine Nitrite Negative (NEGATIVE) Urine Bilirubin Negative (NEGATIVE) Urine Urobilinogen 1.0 (0.2-1.0) EU/dL Ur Leukocyte Esterase Moderate A (NEGATIVE) Urine RBC 2-5 A (0-2) #/HPF Urine WBC 5-10 A (NONE SEEN) #/HPF Ur Squamous Epith Cells Moderate A (NONE/RARE) #/LPF Urine Crystals None seen (None Seen) #/HPF Urine Bacteria Small A (NONE SEEN) #/HPF Urine Casts Seen A (NONE SEEN) #/LPF Hyaline Casts Few Urine Mucus None seen (NONE SEEN) Ur Culture Indicated? Yes Influenza Type A Ag Influenza Type B Ag RSV Antigen (NOT DETECTE) SARS-CoV-2 Ag (CV2AG) (NEGATIVE) POC Glucose (74-106) mg/dL Discharge Plan Discharge Chief Complaint: Fall Clinical Impression: Fall, Hypomagnesemia, KARIS (acute kidney injury), Acidosis, lactic, COVID-19, Non-ST elevation [place] (NSTEMI) Prescriptions / Home Meds: No Action pravastatin 40 mg tablet chlorthalidone 25 mg tablet potassium chloride [Klor-Con M20] 20 mEq tablet,ER particles/crystals PO prednisolone acetate 1 % drops,suspension OPHTHALMIC (EYE) diltiazem HCl 300 mg capsule,extended release 24hr PO lisinopril 10 mg tablet metformin 500 mg tablet extended release 24 hr PO warfarin 2.5 mg tablet Print Language: Kyrgyz Referrals: Ally Heredia MD [Primary Care Provider] - 1 week
[2024-06-11] MEDS: ACETAMINOPHEN 325 MG TABLET 650 MG PO (16:14)
[2024-06-11] MEDS: 0.9 % SODIUM CHLORIDE 1,000 ML 500 ML IV (16:15)
[2024-06-11 16:17] LABS: Prothrombin Time 19.8 sec (9.0-11.6)
[2024-06-11 16:25] LABS: Lymphocytes Absolute Manual 0.46 10^3/uL (1.20-3.80); Monocytes Absolute Manual 1.05 10^3/uL (0.30-0.80); Segmented Neut Absolute Manual 10.17 10^3/uL (1.4-6.5)
[2024-06-11 16:26] LABS: Alanine Aminotransferase 19 U/L (14-59); Albumin Globulin Ratio 1.1; Albumin Level 3.8 g/dL (3.4-5.0); Alkaline Phosphatase 72 U/L (46-116); Anion Gap 19.2; Aspartate Amino Transferase 25 U/L (15-37); BUN Creatinine Ratio 14.7; Bilirubin Total 0.8 mg/dL (0.2-1.0); Chloride 87 mmol/L (98-107); Estimated GFR (African America 43 (>=60 mL/min/1.73m^2); Estimated GFR (Non-African Ame 35 (>=60 mL/min/1.73m^2); Globulin 3.4 g/dL; Glucose 236 mg/dL (74-106); Potassium 4.2 mmol/L (3.5-5.1); Total Protein 7.2 g/dL (6.4-8.2)
[2024-06-11 16:28] LABS: Magnesium 1.1 mg/dL (1.8-2.4)
[2024-06-11 16:30] LABS: Lactate/Lactic Acid 2.8 mmol/L (0.4-2.0); Sodium 123 mmol/L (136-145)
[2024-06-11 17:09] LABS: Influenza Virus A Antigen Negative; Influenza Virus B Antigen Negative; Internal Control Within Normal Limits
[2024-06-11 17:10] LABS: Internal Control Within Normal Limits; Respiratory Syncytial Virus Not Detected (NOT DETECTE); SARS-CoV-2 Ag POSITIVE (NEGATIVE)
[2024-06-11] MEDS: MAGNESIUM SULFATE IN WATER 2 GM/50 ML PREMIX IV (17:10)
[2024-06-11] MEDS: 0.9 % SODIUM CHLORIDE 1,000 ML 1000 ML IV (17:14)
[2024-06-11 17:51] LABS: Lactate/Lactic Acid 1.3 mmol/L (0.4-2.0)
[2024-06-11 18:00] LABS: Creatine Kinase 318 U/L (26-192)
[2024-06-11 18:02] LABS: Troponin I High Sensitivity 3123.3 pg/mL (4.0-51.3)
--- NOTE | 2024-06-11 18:10 | ECG_ITS ---
[facility] Test Date: 2024-06-11 Pat Name: LYRIC JUAREZ Department: Room: - Gender: Female [employer]: : 1945 Requested By: FELIPE JOHNSON Order Number: [id number] Reading MD: EVER TROY Measurements Intervals [place] Rate: 84 P: -[id number] AK: -[id number] QRS: -81 QRSD: 82 T: 62 QT: 368 QTc: 409 Interpretive Statements 1210 Atrial fibrillation 2420 RSR (QR) in lead V1/V2, consistent with right ventricular conduction delay ST/T wave changes, can't exclude inferolateral ischemia 7200 Abnormal left axis deviation 8102 Low QRS voltage in chest leads 9150 abnormal ECG Electronically Signed On 06-12-2024 7:42:00 EST by EVER TROY
[2024-06-11 18:36] LABS: Bilirubin Urine NEGATIVE (NEGATIVE); Blood Urine SMALL (NEGATIVE); Clarity Urine CLEAR (CLEAR); Color Urine LT. YELLOW (YELLOW); Glucose Urine UA NEGATIVE (NEGATIVE); Ketones Urine 15 mg/dL (NEGATIVE); Leukocyte Esterase Urine MODERATE (NEGATIVE); Nitrite Urine NEGATIVE (NEGATIVE); Protein Urine 100 mg/dL (NEG/TRACE); Specific Gravity Urine 1.025 (1.005-1.025); pH Urine 5.5 (5.0-9.0)
[2024-06-11 18:37] LABS: Urine Microscopic Indicated YES
[2024-06-11 18:46] LABS: Bacteria Urine SMALL #/HPF (NONE SEEN); Cast Seen? SEEN #/LPF (NONE SEEN); Crystals Seen? None Seen #/HPF (None Seen); Hyaline Casts Urine FEW; Mucus Urine NONE SEEN (NONE SEEN); Squamous Epithelial Cell Urine MODERATE #/LPF (NONE/RARE); Urine Culture Indicated YES
[2024-06-11] MEDS: ASPIRIN 81 MG TAB.CHEW 324 MG PO (18:52)
[2024-06-11] MEDS: CEFTRIAXONE 1,000 MG in 0.9 % SODIUM CHLORIDE 50 ML 100 MG IV (19:36)
[2024-06-11] MEDS: 0.9 % SODIUM CHLORIDE 1,000 ML 200 ML IV (19:37)
== END 2024-06-11 21:42 | disposition short-term general hospital (02) ==
PROVIDERS: Emergency Provider Emergency Medicine; PCP Family Medicine
DX: I21.4 Non-ST elevation (NSTEMI) myocardial infarction (principal); I48.20 Chronic atrial fibrillation, unspecified; E78.00 Pure hypercholesterolemia, unspecified; E87.1 Hypo-osmolality and hyponatremia; U07.1 COVID-19; N39.0 Urinary tract infection, site not specified; E11.22 Type 2 diabetes mellitus with diabetic chronic kidney disease; I51.4 Myocarditis, unspecified; E83.42 Hypomagnesemia; Z79.84 Long term (current) use of oral hypoglycemic drugs; N18.30 Chronic kidney disease, stage 3 unspecified; N17.9 Acute kidney failure, unspecified; E87.20 Acidosis, unspecified
CPT/HCPCS: 36415; 70450; 71045; 72125; 80053; 81001; 82550; 83605; 83735; 84484; 85007; 85027; 85610; 87040; 87086; 87150; 87420; 87804; 87811; 93005; 96361; 96365; 96367; 99285; J0696; J3475

== ENCOUNTER 2024-06-13 00:39 | Outpatient (RCR) | payer MEDICARE, OTHER, SELFPAY | END 2024-07-08 10:23 | disposition home or self-care (01) | LOC: MM 00:39 | PROVIDERS: PCP Family Medicine; Visit Provider Internal Medicine | DX: Z51.81 Encounter for therapeutic drug level monitoring (principal); Z79.01 Long term (current) use of anticoagulants; I48.20 Chronic atrial fibrillation, unspecified | CPT/HCPCS: 85610; G0463 ==

== ENCOUNTER 2024-06-25 11:29 | Outpatient (OUT) | payer MEDICARE, OTHER, SELFPAY ==
--- OUTSIDE RECORDS SUMMARY | 2024-06-25 11:34 | XMS_ITS | CCD ---
Author Organization [facility]ini[facility] Care Team Providers Care Hospital Aides And Assistants Teacher Name Role Phone MCGRONALDON, KARSON P Attending Unavailable JOHNSON, FELIPE Primary [...] Attending Unavailable JOHNSON, FELIPE Primary Care Unavailable Felipe Johnson E Unavailable Unavailable Unavailable Karson Lopez II Referring Unavailable Karson Lopez II Attending Unavailable Alex, Dr. Felipe Jessica Primary Care Unav ailable Alex, Dr. Felipe Jessica Primary Care Unav ailable Karson Lopez II Referring Unavailable Karson Lopez II Attending Unavailable YOEL, DR LIZAMA Admitting Unavailable MCGUINN, DR LIZAMA Consulting Unavailable ALEX, DR FELIPE Myers Primary Care Unavailable MCGUINN, [...] MISC, DR GERMAIN Admitting Unavailable MISC, DR DOCTOR Pulido Unavailable MISC, DR GERMAIN Attending Unavailable JOHNSON, [...] MCGUINN, DR LIZAMA Admitting Unavailable MCGUINN, DR KARSON Pulido Unavailable JOHNSON, DR FELIPE Myers Primary Care Unavailable MCGUINN, DR LIZAMA Attending Unavailable MCGUINN, DR LIZAMA Admitting Unavailable MCGUINN, DR LIZAMA Consulting Unavailable MCGUINN, DR LIZAMA Attending Unavailable MCGUINN, DR LIZAMA Admitting Unavailable JOHNSON, DR FELIPE Myers Primary Care Unavailable HORACE PRADHAN Attending Unavailable HORACE PRADHAN Admitting Unavailable JOHNSON, DR FELIPE Myers Primary Care Unavailable OHRACE PRADHAN Consulting Unavailable MCGUINN, DR LIZAMA Consulting Unavailable MCGUINN, DR LIZAMA Admitting Unavailable MCGUINN, DR LIZAMA Attending Unavailable JOHNSON, DR FELIPE Myers Primary Care Unavailable MCGUINN, DR LIZAMA Admitting Unavailable MCGUINN, DR LIZAMA Consulting Unavailable JOHNSON, DR FELIPE Myers Primary Care Unavailable MCGUINN, DR LIZAMA Attending Unavailable Johnson , Felipe Primary Care Provider Felipe Johnson MD Primary Care Provider [phone] Felipe Johnson MD Primary Care Provider Felipe Johnson MD Primary Care Provider Karson Lopez MD Unavailable UnavailKARSON Sy Attending Unavailable FELIPE JOHNSON Primary Care Unavailable FRANDY CABRERA Attending Unavailable KARSON LOPEZ Referring Unavailable FELIPE JOHNSON Primary Care Unavailable EVER SQUIRES Referring Unavailable EVER SQUIRES Attending Unavailable CHI LUNSFORD Attending Unavailable INDRA HAYNES Attending Unavailable SHARRI, MILKA Fabio Attending Unavailable HSARRI, MILKA Fabio Attending Unavailable SHARRI, MILKA Fabio Attending Unavailable CHI LUNSFORD Attending Unavailable INDRA HAYNES Attending Unavailable INDRA HAYNES Attending Unavailable CHI LUNSFORD Attending Unavailable IVY, INDRA Gusman Attending Unavailable RICH, MILKA Fabio Attending Unavailable INDRA HAYNES Attending Unavailable CHI LUNSFORD Attending Unavailable Felipe Johnson MD Primary Care Provider Faraz WEATHERS, Thang James Admit Provider Joselo Watson MD Other Provider Franca Velázquez MD Other Provider Ronald WEATHERS, Sebastien Attending Provider Destinee Nicholson MD Other Provider Stevie Escobar MD Other Provider Theresa Campos APRN Other Provider Jameel Miles DO Other Provider [phone] David Castellanos MD Other Provider Beata Nobles Consulting Unavailable Felipe Johnson Primary Care Unavailable David Castellanos Admitting UnavailDavid Morocho Attending Unavaila Barbara Horvath Consulting Unavailable Hodan Salgado Consulting Unavailable Brandi Acevedo Consulting Unavailable Suzie Escoto Consulting Unavailable Harris Saleh Consulting Unavailable Byron Anderson Consulting Unavailable Parminder Contreras Consulting Unavailable Herber Razo Consulting UnavailSebastien Vigil Consulting Unavailable Daniela Harman Consulting Unavailable Dawson Hernandez Consulting Unavailable Newton Galeana Consulting Unavailable Zaira Waggoner Consulting UnavailJaron Esquivel Consulting Unavailable Jaret Castro Consulting Unavailable Venancio Contreras Consulting Unavailable Valeriano Madera Consulting Unavailable Dawson Hanley Consulting Unavailable John Vega Consulting Unavailable Jesse Tang Consulting Unavailable Maria E Dawn Consulting Unavailable Joya Johnson Consulting Unavailable Jason Tomlin Consulting Unavailab Greg Sheppard Consulting Unavailable Garett Davis Consulting Unavailable Antonette Knox Consulting Unavailable Guillermo Reyes Consulting Unavailable Lizeth Tinoco Consulting Unavailable Kenrick Mata Consulting Unavailable Twila Canales Consulting Unavailable Dedrick Bella Consulting Unavailable Maura Calix Consulting Unavailable Raina Courtney Consulting Unavailable Dorina Aiken Consulting Unavailable Alfa Alanaseem Consulting Unavailable Thang Ruth Consulting Unavailable Evan Wiley Consulting Unavailable Rita Silver Consulting Unavailable Tony Davis Consulting Unavailable Karla Duran Consulting Unava ilable Madiha Thornton Consulting Unavailable Cristal Pfeiffer Consulting Unavailable Chuy Schroeder Consulting Unavailable Stevie Almazan Consulting Unavailable Newton Zarate Consulting Unavailable Nain Hall Consulting Unavailable Alba Barahona Consulting Unavailable Bolzamark-Dale Nicolettpaolo Consulting Unavaila Lizet Hinton Consulting Unavailable Sebastien Cardenas Attending Unavailable Felipe Johnson Primary Care Unavailable Joselo Watson Consulting Unavailable Thang Ruth Admitting Unavailable Franca Velázquez Consulting Unavailable Destinee Nicholson Consulting Unavailable Stevie Escobar Consulting Unavailable Theresa Campos Consulting Unavailable Jameel Miles Jr Consulting UnavailDavid Yoo Consulting UnavailDavid Morocho MD Admit Provider David Castellanos MD Attending Provider [phone] Mallorie RN, Beata Other Provider Unavailable Lyndsay RN, Barbara Other Provider Unavailable Naomi RN, Hodan Other Provider Unavailable Kristina RN, Brandi Other Provider Unavailable Jevon RN, Suzie Other Provider Unavailable Harris Saleh MD Other Provider Byron Anderson DO Other Provider Diane WEATHERS, Parminder Other Provider Dung MORALES, Herber Other Provider Ronald WEATHERS, Sebastien Other Provider [phone] Ghazal WEATHERS, Daniela Other Provider [phone] Dawson Hernandez DO Other Provider Kervin WEATHERS, Newton Other Provider Unavailable Zaira Waggoner APRN Other Provider Kurt WEATHERS, Jaron Other Provider Jaret Castro MD Other Provider Diane WEATHERS, Venancio Other Provider Unavailable Valeriano Madera MD Other Provider Dawson Hanley DO Other Provider John Vega MD Other Provider Kitty WEATHERS, Jesse Other Provider Lavaca CHEMISTRY MANAGER-C, Maria E James Other Provider [phone] Joya Johnson APRN Other Provider Unavailable Jason Tomlin MD Other Provider Yehuda WEATHERS, Greg Other Provider Ryan WEATHERS, Garett Other Provider Antonette Knox MD Other Provider Unavailable Guillermo Reyes MD Other Provider Lizeth Tinoco DO Other Provider Kenrick Mata DO Other Provider Twila Canales APRN Other Provider Bella DO, Dedrick James Other Provider Yogi WEATHERS, Maura Petersen Other Provider Raina Courtney APRN Other Provider [phone] Dorina Aiken APRN Other Provider Alfa WEATHERS, Jackelin Other Provider Faraz WEATHERS, Thang James Other Provider Wiley DO, Evan Han Other Provider [phone] Nadeem DO, Rita Other Provider Ryan WEATHERS, Tony Hurst Other Provider Roger WEATHERS, Karla Gallardo Other Provider Norberto WOLF, Madiha Other Provider Kentrell WEATHERS, Cristal Other Provider Alexandre WEATHERS, Chuy Other Provider Tha WEATHERS, Stevie Montiel Other Provider [phone] Elliot WEATHERS, Newton Mccarthy Other Provider Nain Hall MD Other Provider Alba Barahona APRN Other Provider Bolzan-Gianfranco Hunter APRN Other Provider Caridad RAMIREZ, Lizet Other Provider Unavailable Allergies Allergy Classification Reported Allergen(s) Allergy Type Date of Onset Reaction(s) Facility (20 sources) Flecainide; Translations: [Flecainide Acetate TABS] Drug Allergy 8 GI intolerance, Rash, Hives, Unknown [facility] (20 sources) Hydrocortisone; Translations: [Hydrocortisone TABS] Drug Allergy 3 Unknown [facility] Work Phone: (16 sources) Other Allergy to substance (finding) -[facility] y [facility] DO Work Phone: (2 sources) Flecainide; Translations: [FLECAINIDE] Drug Allergy 3 [facility] Repository (12 sources) Betamethasone Drug Allergy 8 GI intolerance [facility] (1 source) Hydrocortisone; Translations: [HYDROCORTISONE] Drug Allergy 3 [facility] 3 Repository (1 source) Flecainide Drug Allergy 5 [facility] Repository Medications Current Medications Medication Drug Class(es) Dates Sig (Normalized) Sig (Original) acetaminophen 500 mg oral tablet (1 source) Start: 06-23-2024 take 1 tablet by mouth every four hours as needed for pain Acetaminophen 500 mg Tablet Active 500 MG PO Q4H as needed for Pain June 23, 2024 12:00am cholecalciferol 0.025 mg oral capsule (5 sources) Vitamin D Start: 04-20-2024 take 1 capsule by mouth once daily Cholecalciferol (Vitamin D3) 25 mcg (1,000 unit) capsule Active 25 MCG PO Daily April 20, 2024 12:00am take 1 capsule by mouth in the m orning cholecalciferol (Vitamin D3) 50 mcg (2,000 unit) capsule Take 1 capsule (50 mcg) by mouth early in the morning.. Active clopidogrel 75 mg oral tablet (3 sources) [id number] Platelet Inhibitor Start: 06-20-2024 End: 06-23-2024 take 1 tablet by mouth once daily Clopidogrel 75 mg Tablet Active 75 MG PO Daily June 23, 2024 3:39pm cycloSPORINE 0.5 mg/ml ophthalmic suspension (13 sources) [...] release oral tablet (20 sources) Calcium Channel Jaguar Start: 04-19-2024 take 1 capsule by mouth every twenty-four hours Diltiazem Hcl 300 mg capsule,extended release 24hr Active MG PO April 19, 2024 12:00am Start: 10-21-2022 End: 05-16-2025 take 1 capsule by mouth once daily Diltiazem Hcl 300 mg capsule,extended release 24hr Discontinued 300 MG PO Daily April 19, 2024 12:00am June 20, 2024 1:51pm Start: 01-31-2022 take 1 capsule by [facility] once daily in the morning dilTIAZem HCl ER Coated Beads 300 MG Oral Capsule Extended Release 24 Hour TAKE 1 CAPSULE BY MOUTH EVERY DAY IN THE MORNING Quantity: 90 Refills: 3 Ordered: 29-Sep-2022 Karson Lopez MD Start : 31-Jan-2022 Active DilTIAZem CD 300 MG CP24 TAKE 1 CAPSULE Daily Quantity: 0 Refills: 0 Ordered: 04-Jun-2021 DO Active diphenhydrAMINE hydrochloride 25 mg oral capsule (1 source) Histamine-1 Receptor Antagonist Start: 06-23-2024 take 1 capsule by mouth at bedtime as needed for sleep Diphenhydramine Hcl (Banophen) 25 mg Capsule Active 25 MG PO Bedtime as needed for Sleep 0 June 23, 2024 12:00am preservative-free dorzolamide 20 mg/ml / timolol 5 mg/ml ophthalmic solution (20 sources) Carbonic Anhydrase Inhibitor, beta-Adrenergic Jaguar Start: 06-11-2024 Dorzolamide-Timolol (Pf) 2-0.5 % dropperette Active 1 DROPS EYE-BOTH Daily June 11, 2024 12:00am Start: 01-08-2024 take 1 drop(s) into the [...] MORNING AND 1 DROP BEFORE BEDTIME Active empagliflozin 25 mg oral tablet (3 sources) Sodium-Glucose Cotransporter 2 Inhibitor Start: 06-20-2024 End: 06-23-2024 take 1 tablet by mouth once daily in the morning Empagliflozin (Jardiance) 25 mg tablet Active 25 MG PO Every morning 360 June 23, 2024 3:39pm 0.8 ml enoxaparin sodium 100 mg/ml prefilled [...] the vagina in the morning. 09/16/2022 Active 24 hr isosorbide mononitrate 60 mg extended release oral tablet (3 sources) Nitrate Vasodilator Start: 06-20-2024 End: 06-23-2024 take 1 tablet by mouth once daily, then take 1 tablet by mouth every twenty-four hours Isosorbide Mononitrate 60 mg Tablet Extended Release 24 Hr Active 60 MG PO Daily at 0600 30 June 23, 2024 3:39pm lisinopril 10 mg oral tablet (20 sources) Angiotensin Converting Enzyme Inhibitor Start: 05-16-2024 take 1 tablet by mouth once daily lisinopril 10 mg tablet Indications: Essential hypertension Take 1 tablet (10 mg) by mouth once daily. 90 tablet 3 05/16/2024 Active Start: 10-20-2022 End: 06-20-2024 take 1 tablet by mouth once daily Lisinopril 10 mg tablet Discontinued 10 MG PO Daily April 19, 2024 12:00am June 20, 2024 1:51pm Start: 07-23-2021 take 1 tablet by vance th once daily Lisinopril 10 MG Oral Tablet Take 1 tablet daily Quantity: 90 Refills: 3 Ordered: 29-Sep-2022 Karson Lopez MD Start : 23-Jul-2021 Active take 1 [...] hydrochloride 500 mg extended release oral tablet (5 sources) Biguanide Start: 05-17-2024 End: 06-23-2024 take 1 tablet by mouth once daily Metformin 500 mg tablet extended release 24 hr Active 500 MG PO Daily June 23, 2024 3:39pm Start: 07-22-2021 take 1 tablet by vance th every twenty-four hours metFORMIN HCl ER 500 MG Oral Tablet Extended Release 24 Hour Quantity: 90 Refills: 0 Ordered: 22-Jul-2021 DO Start : 22-Jul-2021 Complete 24 hr metoprolol succinate 50 mg extended release oral tablet (3 sources) beta-Adrenergic Jaguar Start: 06-20-2024 End: 06-23-2024 take 1 tablet by mouth once daily Metoprolol Succinate 50 mg Tablet Extended Release 24 Hr Active 50 MG PO Daily June 23, 2024 3:39pm microencapsulated potassium chloride 20 meq extended release oral tablet (20 sources) Start: 05-16-2024 take 2 tablets by mouth once daily potassium chloride CR (Klor-Con M20) 20 mEq ER tablet Indications: Essential (primary) hypertension Take 2 tablets (40 mEq) by mouth once daily. 180 tablet 3 05/16/2024 Active Start: 08-20-2023 End: 06-23-2024 Potassium Chloride (Klor-Con M20) 20 mEq tablet,ER particles/crystals Active 20 MEQ PO Daily June 23, 2024 3:39pm Start: 08-28-2022 take 2 tablets by mo [facility] in the morning KLOR-CON 20 MEQ ER tablet Take 40 mEq by mouth in the morning. 08/28/2022 Active Start: 11-29-2021 take 2 tablets by mo uth once daily Klor-Con M20 20 MEQ Oral [...] (Med List Cleanup) take 1 tablet by vance th twice daily Potassium Chloride ER 20 MEQ [...] tablet 3 05/16/2024 Active Start: 11-04-2021 End: 06-20-2024 take 1 tablet by mouth once daily at bedtime Pravastatin 40 mg tablet Discontinued 40 MG PO Daily at bedtime April 19, 2024 12:00am June 20, 2024 5:12pm prednisoLONE acetate 10 mg/ml ophthalmic suspension (13 sources) Corticosteroid Start: 04-14-2023 End: 06-15-2023 take 1 drop(s) into the eye(s) three times daily prednisoLONE acetate (Pred-Forte) 1 % ophthalmic suspension Indications: Rce (recurrent corneal erosion), left INSTILL 1 DROP IN LEFT EYE 3 TIMES DAILY 15 mL 5 06/15/2023 Active sacubitril / valsartan (3 sources) Angiotensin 2 Receptor Jaguar Start: 06-23-2024 take 1 tablet by mouth twice daily Sacubitril-Valsart an (Entresto) 24-26 mg Tablet Active 1 TAB PO Twice daily 60 June 23, 2024 3:39pm Start: 06-20-2024 End: 06-23-2024 take 1 tablet by mouth twice daily Sacubitril-Valsartan (Entresto) 24-26 mg Tablet Discontinued 1 TAB PO Twice daily 0 June 20, 2024 12:00am June 23, 2024 3:39pm Start: 06-20-2024 take 1 tablet by vance th twice daily Sacubitril-Valsartan (Entresto) 24-26 mg Tablet Active 1 TAB PO Twice daily 0 June 20, 2024 12:00am spironolactone 25 mg oral tablet (3 sources) Aldosterone Antagonist Start: 06-20-2024 End: 06-23-2024 take 1 tablet by mouth once daily Spironolactone 25 mg Tablet Active 25 MG PO Daily June 23, 2024 3:39pm tamsulosin hydrochloride 0.4 mg oral capsule (1 source) alpha-Adrenergic Jaguar Start: 06-23-2024 take 1 capsule by mouth at bedtime Tamsulosin 0.4 mg Capsule Active 0.4 MG PO Bedtime June 23, 2024 12:00am Completed/Discontinued Medications Medication Drug Class(es) Dates Sig (Normalized) Sig (Original) atorvastatin 80 mg oral tablet (2 sources) HMG-CoA Reductase Inhibitor Start: 06-20-2024 take 1 tablet by mouth once daily in the evening Atorvastatin 80 mg Tablet Active 80 MG PO Every evening June 20, 2024 12:00am On Hold: HOLD until f/u with PCP start 06/27/24, monitor LFT in 2 weeks thereafter betamethasone 0.5 mg/ml / clotrimazole 10 mg/ml topical cream (18 sources) Azole Antifungal, Corticosteroid Start: 08-20-2023 End: 06-11-2024 Clotrimazole-Beta methasone 1-0.05 % cream Discontinued 0 .ROUTE .COMPLEX August 20, 2023 9:01am June 11, 2024 10:52pm APPLY TO AFFECTED AREA TWICE A DAY [...] mouth once daily Chlorthalidone 25 mg tablet Discontinued 25 MG PO Daily April 19, 2024 12:00am June 20, 2024 1:51pm gentamicin 3 mg/ml ophthalmic solution (1 source) Start: 11-28-2021 take 2 drop(s) into the eye(s) every four hours Gentamicin Sulfate 0.3 % Ophthalmic Solution PLACE 2 DROPS INTO LEFT EYE EVERY 4 HOURS Quantity: 5 Refills: 0 Ordered: 28-Nov-2021 DO Start : 28-Nov-2021 Complete Insulin Aspart U-100 100 unit/mL (3 mL) Insulin Pen (2 sources) Start: 06-20-2024 End: 06-23-2024 Insulin Aspart U-100 100 unit/mL (3 mL) Insulin Pen Discontinued 0 UNIT SUBCUT Before meals and at bedtime 0 June 20, 2024 12:00am June 23, 2024 3:39pm Please contact the information source for Protocol details. Start: 06-20-2024 Insulin Aspart U-100 100 unit/mL (3 mL) Insulin Pen Active 0 UNIT SUBCUT Before meals and at bedtime 0 June 20, 2024 12:00am Please contact the information source for Protocol details. Vitamin D CAPS (16 sources) Vitamin D CAPS A s directed. Quantity: 0 Refills: 0 Ordered: 04-Jun-2021 DO Active warfarin sodium 2.5 mg oral tablet (20 sources) Vitamin K Antagonist Start: 04-19-2024 End: 06-24-2024 Warfarin 2.5 mg tablet Discontinued 2.5 MG PO Daily June 24, 2024 9:51am June 24, 2024 9:53am Take 1 tablet (2.5 mg) Thursday, Thursday, Thursday. Take 1/2 tablet (1.25 mg) , Thursday, Thursday, Thursday. Start: 06-27-2021 End: 09-28-2023 take 0.5-1 tablets by mouth once daily warfarin (Coumadin) 2.5 mg tablet Indications: Chronic atrial fibrillation (Multi) TAKE 1/2 TO 1 TABLET BY MOUTH DAILY OR DIRECTED BY [facility] 90 tablet 1 08/20/2023 Active Problems Active Problems Problem Classification Problem Date Documented Date Episodic/Chronic Acute and unspecified renal failure (9 sources) Acute renal failure syndrome; Translations: [Acute kidney failure, unspecified] Onset: 5 06-12-2024 Episodic Acute myocardial infarction (5 sources) Myocardial infarction; Translations: [Non-ST elevation (NSTEMI) myocardial infarction] Onset: 5 06-13-2024 Chronic Administrative/socia l admission (6 sources) Other reduced mobility; Translations: [Impaired mobility and activities of daily living] Onset: 5 06-20-2024 Episodic Cardiac dysrhythmias (20 sources) Chronic atrial fibrillation; Translations: [Atrial fibrillation] Onset: 6 Chronic Cardiac dysrhythmias (20 sources) Palpitations; Translations: [Palpitations] Onset: 3 05-18-2023 Episodic Chronic kidney disease (12 sources) Chronic kidney disease stage 3A ; Translations: [Stage 3a chronic kidney disease (Multi)] Onset: 5 05-16-2024 Chronic Chronic kidney disease (3 sources) Chronic kidney disease; Translations: [Chronic kidney disease, stage 3a (Multi)] Onset: 5 Coagulation and hemorrhagic disorders (5 sources) Blood coagulation disorder; Translations: [Hemorrhagic disorder due to extrinsic circulating anticoagulants] Onset: 5 06-14-2024 Chronic Coronary atherosclerosis and other heart disease (6 sources) Triple vessel disease of the heart ; Translations: [Atherosclerotic heart disease of [place] coronary artery without angina pectoris] Onset: 5 06-16-2024 Chronic Diabetes mellitus with complications (13 sources) Hyperglycemia due to type 2 diabetes mellitus; Translations: [Type 2 diabetes mellitus with hyperglycemia] Onset: 5 04-20-2024 Chronic Diabetes mellitus without complication (15 sources) Type 2 diabetes mellitus without complications; Translations: [Type 2 diabetes mellitus without complication] Onset: 0 05-18-2023 Chronic Disorders of lipid metabolism (20 sources) Hyperlipidemia; Translations: [Other and unspecified hyperlipidemia] Onset: 6 05-18-2023 Chronic E Codes: Adverse effects of medical drugs (1 source) Adverse effect of anticoagulants, initial encounter; Translations: [Adverse effect of anticoagulants, initial encounter] Onset: 5 Episodic Essential hypertension (20 sources) Essential hypertension; Translations: [Unspecified essential hypertension] Onset: 8 Chronic Fluid and electrolyte disorders (11 sources) Hyponatremia; Translations: [Hypo-osmolality and hyponatremia] Onset: 5 06-12-2024 Episodic Genitourinary symptoms and ill-defined conditions (1 source) [...] conjunctivitis; 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] Onset: Episodic Menopausal disorders (12 sources) Postmenopausal bleeding; Translations: [Postmenopausal bleeding] Onset: 4 05-18-2023 Chronic Mycoses (2 sources) Onychomycosis; Translations: [Tinea unguium] 01-21-2024 Episodic Nutritional deficiencies (6 sources) Vitamin D deficiency; Translations: [Vitamin D deficiency, unspecified] 04-20-2024 Chronic Osteoarthritis (3 sources) Osteoarthritis; Translations: [Unspecified osteoarthritis, unspecified site] 10-01-2023 Chronic Other aftercare (16 sources) Anticoagulant effect; Translations: [Long-term (current) use of anticoagulants] Episodic Other aftercare (16 sources) Drug therapy finding; Translations: [Long-term (current) use of other medications] Episodic Other aftercare (13 sources) Long-term current use of anticoagulant; Translations: [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] Onset: 9 05-18-2023 Episodic Other aftercare (2 sources) 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; Translations: [Long-term (current) use of anticoagulants] Onset: 5 06-24-2024 Episodic Other and ill-defined heart disease (2 sources) Left ventricular systolic dysfunction; Translations: [Other ill-defined heart diseases] 06-13-2024 Chronic Other and ill-defined heart disease (3 sources) Other ill-defined heart diseases; Translations: [Other ill-defined heart diseases] Onset: 5 06-20-2024 Chronic Other circulatory disease (2 sources) Low blood pressure; Translations: [Hypotension, unspecified] 06-12-2024 Episodic Other circulatory disease (3 sources) Hypotension, unspecified; Translations: [Hypotension, unspecified] Onset: 5 06-20-2024 Episodic Other connective tissue disease (2 sources) [...] left eye] Onset: 3 06-15-2023 Episodic Other liver diseases (5 sources) Elevated liver enzymes level; Translations: [High liver transaminase level] 06-15-2024 Episodic Other liver diseases (2 sources) Hepatic failure; Translations: [Hepatic failure, unspecified without coma] 06-14-2024 Episodic Other liver diseases (4 sources) Hepatic failure, unspecified without coma; Translations: [Other sequelae of chronic liver disease] Onset: 5 06-20-2024 Episodic Other nervous system disorders (2 sources) Critical illness myopathy; 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] 06-20-2024 Chronic Other nervous system disorders (4 sources) Critical illness myopathy; 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] Onset: 5 06-20-2024 Chronic Other nutritional; endocrine; and metabolic disorders (9 sources) Obesity; Translations: [Obesity, unspecified] Chronic Other nutritional; endocrine; and metabolic disorders (2 sources) Hypomagnesemia; Translations: [Hypomagnesemia] 06-12-2024 Chronic Other nutritional; endocrine; and metabolic disorders (3 sources) Hypomagnesemia; Translations: [Disorders of magnesium metabolism] Onset: 5 06-20-2024 Chronic Other nutritional; endocrine; and metabolic disorders (10 sources) Overweight in adulthood with body mass index of 25 or more but less than 30; Translations: [Overweight] Onset: 5 05-16-2024 Episodic Other nutritional; endocrine; and metabolic disorders (2 sources) Body mass index (BMI) 28.0-28.9, adult; Translations: [Body mass index (BMI) 28.0-28.9, adult] Onset: 5 Episodic Other screening for suspected conditions (not mental disorders or infectious disease) (20 sources) Patient encounter status; Translations: [Encounter for screening mammogram for malignant neoplasm of breast] Onset: 8 05-18-2023 Episodic Residual codes; unclassified (2 sources) Never smoked tobacco; Translations: [Other specified health status] Onset: 5 05-16-2024 Episodic Residual codes; unclassified (3 sources) Other specified health status; Translations: [Other specified health status] Onset: 5 Episodic Residual codes; unclassified (5 sources) Multiple organ failure 06-14-2024 Episodic Respiratory failure; insufficiency; arrest (adult) (6 sources) Respiratory failure; Translations: [Respiratory failure, unspecified, unspecified whether with hypoxia or hypercapnia] Onset: 5 06-14-2024 Episodic Septicemia (except in labor) (6 sources) Sepsis; Translations: [Sepsis, unspecified organism] Onset: 5 06-12-2024 Episodic Unclassified (3 sources) 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; 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] Onset: 9 Unclassified (3 sources) Other cra officer (current) drug therapy; Translations: [Other assisted (current) drug therapy] Onset: 8 Unclassified (6 sources) Chronic atrial fibrillation, unspecified; Translations: [CHRONIC ATRIAL FIBRILLATION UNSPEC] Onset: 3 Unclassified (1 source) Elevation of levels of liver transaminase levels; Translations: [Elevation of levels of liver transaminase levels] Onset: 5 Unclassified (1 source) Permanent atrial fibrillation; Translations: [Permanent atrial fibrillation] Onset: 5 Unclassified (1 source) A [facility] screening has identified you as FRAIL or AT RISK FOR FRAILTY. This puts you at a higher risk for infection, illness, falls, and other injuries. Here are four ways to help you reduce your risk of frailty: 1. IDENTIFY EARLY SIGNS OF FRAILTY Discuss contributing factors and concerns with your doctor 2. BE ACTIVE Walking and light strengthening exercises will help reduce weakness 3. EAT WELL Aim for three healthy meals a day that are high in protein 4. THINK POSITIVE Keep your mind active by being sociable and continuing to learn References: Stay Strong: Four Ways to Beat the Frailty Risk https://www.[facility].org/health/wellness-an d-prevention/stay-strong- vewj-bwmt-eq-bgmk-nto-zyf ilty-risk 06-23-2024 Urinary tract infections (5 sources) Urinary tract infectious disease; Translations: [Urinary tract infection, site not specified] Onset: 5 06-12-2024 Episodic Viral infection (7 sources) Verruca plantaris; Translations: [Plantar wart] 01-21-2024 Episodic Viral infection (1 source) COVID-19; Translations: [COVID-19] Onset: Past or Other Problems Problem Classification Problem Date Documented Date Episodic/Chronic Other aftercare (12 sources) Long-term current use of drug therapy; Translations: [Other assisted (current) drug therapy] Onset: 12-09-2017 05-18-2023 Episodic Other connective tissue disease (1 source) Pain of toes of bilateral feet; Translations: [Pain in right toe(s)] 01-21-2024 Episodic Other diseases of veins and lymphatics (12 sources) Peripheral venous insufficiency; Translations: [Venous insufficiency (chronic) (peripheral)] Onset: 05-18-2023 05-18-2023 Episodic Residual codes; unclassified (12 sources) [...] Test Name Value Interpretation Reference Range Facility Glucose Glucometer (BldC) [M ass/Vol]Ordered By: David Castellanos on 06-24-2024 Glucose [Mass/Vol] Capillary blood gluc ose measurement by glucometer (mass/volume) [facility] Comment on above: Random Glucose Refer ence Range is dependent on time and content of last meal. Glucose of more than 200 mg/dL in a nonstressed, ambulatory subject supports the diagnosis of Diabetes Mellitus. INR in Platelet poor plasma by Coagulation assayOrdered By: David Castellanos on 06-24-2024 INR Coag (PPP) [Relative time] INR in Platelet poor plasma by Coagulation assay [facility] Comment on above: INR Therapeutic Rang e A) Pre- and Peroperative OAT started two weeks before surgery. NOT HIP SURGERY: 1.5 - 2.5 HIP SURGERY: 2 - 3B) Primary and secondary prevention of venous THROMBOSIS: 2 - 3C) Active venous thrombosis, pulmonary embolismand prevention of recurrent venous thrombosis: 2 - 3D) Prevention of arterial thromboembolismincluding patients with mechanical heart valves: 3 - 4.5 Prothrombin time (PT)Ordered By: David Castellanos on 06-24-2024 PT Coag (PPP) [Time] Prothrombin time (PT) High 9.0- 12.9 [facility] Comment on above: A hematocrit value g reater than 55% may lead to inaccurate results in coagulation testing. Patients having hematocrit values >55% require a special collection tube for coagulation studies. Please contact the laboratory at [phone] for redraw instructions. Glucose Poct Glucometerson 0 06-23-2024 Glucose [Mass/Vol] 145 mg/dL Normal [facility] Comment on above: Result Comment: [facility] Glucose Reference Range is dependent on time and content of last meal. Glucose of more than 200 mg/dL in a nonstressed, ambulatory subject supports the diagnosis of Diabetes Mellitus. PERFORMED BY: [place] [address] PATHOLOGIST ELECTRIC FREIGHT CAR OPERATOR MIKY TOMAS M.D. Performed By: #### P T #### [address] Glucose [Mass/Vol] 107 mg/dL Normal [facility] Comment on above: Result Comment: [facility] Glucose Reference Range is dependent on time and content of last meal. Glucose of more than 200 mg/dL in a nonstressed, ambulatory subject supports the diagnosis of Diabetes Mellitus. PERFORMED BY: [place] [address] PATHOLOGIST ELECTRIC FREIGHT CAR OPERATOR MIKY TOMAS M.D. Performed By: #### P T #### [address] Prothrombin Time INRon 06-23 INR Coag (PPP) [Relative time] 2.1 {INR} Normal [facility] Comment on above: Result Comment: INR Therapeutic Range A) Pre- and Peroperative OAT started two weeks before surgery. NOT HIP SURGERY: 1.5 - 2.5 HIP SURGERY: 2 - 3 B) Primary and secondary prevention of venous THROMBOSIS: 2 - 3 C) Active venous thrombosis, pulmonary embolism and prevention of recurrent venous thrombosis: 2 - 3 D) Prevention of arterial thromboembolism including patients with mechanical heart valves: 3 - 4.5 PERFORMED BY: [place] [address] PATHOLOGIST ELECTRIC FREIGHT CAR OPERATOR MIKY TOMAS M.D. Performed By: #### P P, CBC #### [address] PT Coag (PPP) [Time] 23.8 s High 9.0-12.9 [facility] Comment on above: Result Comment: A he matocrit value greater than 55% may lead to inaccurate results in coagulation testing. Patients having hematocrit values >55% require a special collection tube for coagulation studies. Please contact the laboratory at [phone] for redraw instructions. Performed By: #### P P, CBC #### [address] Glucose Poct Glucometerson 0 06-22-2024 Glucose [Mass/Vol] 147 mg/dL Normal [facility] Comment on above: Result Comment: [place] [facility] Glucose Reference Range is dependent on time and content of last meal. Glucose of more than 200 mg/dL in a nonstressed, ambulatory subject supports the diagnosis of Diabetes Mellitus. PERFORMED BY: [place] [address] PATHOLOGIST ELECTRIC FREIGHT CAR OPERATOR MIKY TOMAS M.D. Performed By: #### P T #### [address] Commemt1 Glu2: Cleaned Meter Normal [facility] Comment on above: Result Comment: PERF ORMED BY: [place] [address] PATHOLOGIST ELECTRIC FREIGHT CAR OPERATOR MIKY TOMAS M.D. Performed By: #### P T #### [address] Performed By: #### G LULS #### Point of Care testing , Glucose [Mass/Vol] 122 mg/dL Normal [facility] Comment on above: Result Comment: [place] [facility] Glucose Reference Range is dependent on time and content of last meal. Glucose of more than 200 mg/dL in a nonstressed, ambulatory subject supports the diagnosis of Diabetes Mellitus. Performed By: #### P T #### [address] Glucose [Mass/Vol] 102 mg/dL Normal [facility] Comment on above: Result Comment: [place] [facility] Glucose Reference Range is dependent on time and content of last meal. Glucose of more than 200 mg/dL in a nonstressed, ambulatory subject supports the diagnosis of Diabetes Mellitus. Performed By: #### G LULS #### Point of Care testing , Glucose [Mass/Vol] 95 mg/dL Normal [facility] Comment on above: Result Comment: [place] [facility] Glucose Reference Range is dependent on time and content of last meal. Glucose of more than 200 mg/dL in a nonstressed, ambulatory subject supports the diagnosis of Diabetes Mellitus. PERFORMED BY: [place] [address] PATHOLOGIST ELECTRIC FREIGHT CAR OPERATOR MIKY TOMAS M.D. Performed By: #### P T #### [address] No Panel InformationOrdered By: David Castellanos on 06-22-2024 Bedside Glucose Comment Glu2: cleaned meter [facility] Prothrombin Time INRon 06-22 INR Coag (PPP) [Relative time] 1.8 {INR} Normal [facility] Comment on above: Result Comment: INR Therapeutic Range A) Pre- and Peroperative OAT started two weeks before surgery. NOT HIP SURGERY: 1.5 - 2.5 HIP SURGERY: 2 - 3 B) Primary and secondary prevention of venous THROMBOSIS: 2 - 3 C) Active venous thrombosis, pulmonary embolism and prevention of recurrent venous thrombosis: 2 - 3 D) Prevention of arterial thromboembolism including patients with mechanical heart valves: 3 - 4.5 PERFORMED BY: [place] [address] PATHOLOGIST ELECTRIC FREIGHT CAR OPERATOR MIKY TOMAS M.D. Performed By: #### T RIG, CMP #### [facility] [address] [place] [address] PT Coag (PPP) [Time] 19.8 s High 9.0-12.9 [facility] Comment on above: Result Comment: A he matocrit value greater than 55% may lead to inaccurate results in coagulation testing. Patients having hematocrit values >55% require a special collection tube for coagulation studies. Please contact the laboratory at [phone] for redraw instructions. Performed By: #### T RIG, CMP #### [facility] [address] [place], [place] [id number] [facility] Alanine aminotransferase [En zymatic activity/volume] in Serum or PlasmaOrdered By: David Castellanos on 06-21-2024 ALT [Catalytic activity/Vol] Alanine aminotransferase [Enzymatic activity/volume] in Serum or Plasma High 7-52 [facility] Albumin [Mass/volume] in Ser um or Plasma by Bromocresol green (BCG) dye binding methoOrdered By: David Castellanos on 06-21-2024 Albumin BCG dye [Mass/Vol] Albumin [Mass/volume] in Serum or Plasma by Bromocresol green (BCG) dye binding metho Low 3.5-5.7 [facility] Alkaline phosphatase [Enzyma tic activity/volume] in Serum or PlasmaOrdered By: David Castellanos on 06-21-2024 ALP [Catalytic activity/Vol] Alkaline phosphatase [Enzymatic activity/volume] in Serum or Plasma High 34-104 [facility] Aspartate aminotransferase [ Enzymatic activity/volume] in Serum or PlasmaOrdered By: David Castellanos on 06-21-2024 AST [Catalytic activity/Vol] Aspartate aminotransferase [Enzymatic activity/volume] in Serum or Plasma High 13-39 [facility] Basophils Auto (Bld) [#/Vol] Ordered By: David Castellanos on 06-21-2024 Basophils (Bld) [#/Vol] Automated basophil count 0.0-0.2 [facility] Basophils/100 WBC Auto (Bld) Ordered By: David Castellanos on 06-21-2024 Basophils/100 WBC (Bld) Automated basophil % . [facility] Bilirubin.total [Mass/volume ] in Serum or PlasmaOrdered By: David Castellanos on 06-21-2024 Bilirubin [Mass/Vol] Bilirubin.total [Mass/volume] in Serum or Plasma 0.3-1.0 [facility] Calcium [Mass/volume] in Ser um or PlasmaOrdered By: David Castellanos on 06-21-2024 Calcium [Mass/Vol] Calcium [Mass/volume ] in Serum or Plasma 8.6-10.3 [facility] Carbon dioxide, total [Moles /volume] in Serum or PlasmaOrdered By: David Castellanos on 06-21-2024 CO2 [Moles/Vol] Carbon dioxide, tota l [Moles/volume] in Serum or Plasma High 21.0-31.0 [facility] Chloride [Moles/volume] in S ashley or PlasmaOrdered By: David Castellanos on 06-21-2024 Chloride [Moles/Vol] Chloride [Moles/vol ume] in Serum or Plasma Low 98-107 [facility] Complete Blood Count Auto Di ffon 06-21-2024 Basophils (Bld) [#/Vol] 0.0 10*3/uL Normal 0.0-0.2 [facility] Comment on above: Result Comment: PERF ORMED BY: [place] [address] PATHOLOGIST ELECTRIC FREIGHT CAR OPERATOR MIKY TOMAS M.D. Performed By: #### P T #### [address] Basophils/100 WBC (Bld) 0.3 % Normal . [facility] Comment on above: Performed By: #### P T #### [place] [address] [place] Eosinophils (Bld) [#/Vol] 0.2 10*3/uL Normal 0.0-0.45 [facility] Comment on above: Performed By: #### P T #### [address] Eosinophils/100 WBC (Bld) 1.2 % Normal . [facility] Comment on above: Performed By: #### P T #### [address] Erythrocyte distribution width (RBC) [Ratio] 14.4 % Normal 11.9-15.3 [facility] Comment on above: Performed By: #### P T #### [address] Hematocrit (Bld) [Volume fraction] 34.5 % Normal 34.0-46.4 [facility] Comment on above: Performed By: #### P T #### [address] Hemoglobin (Bld) [Mass/Vol] 11.4 g/dL Low 11.8-15.4 [facility] Comment on above: Performed By: #### P T #### [address] Lymphocytes (Bld) [#/Vol] 1.0 10*3/uL Normal 1.00-4.8 [facility] Comment on above: Performed By: #### P T #### [address] Lymphocytes/100 WBC (Bld) 7.6 % Normal . [facility] Comment on above: Performed By: #### P T #### [address] MCH (RBC) [Entitic mass] 30.5 pg Normal 24.7-34.3 [facility] Comment on above: Performed By: #### P T #### [address] MCV (RBC) [Entitic vol] 92.5 fL Normal 80-100 [facility] Comment on above: Performed By: #### P T #### [address] Mean Corpuscular HGB Conc 33.0 g/dL Normal 32.0-35.0 [facility] Comment on above: Performed By: #### P T #### [address] Monocytes (Bld) [#/Vol] 1.5 10*3/uL High 0.0-0.8 [facility] Comment on above: Performed By: #### P T #### [address] Monocytes/100 WBC (Bld) 11.9 % Normal . [facility] Comment on above: Performed By: #### P T #### [address] Neutrophils (Bld) [#/Vol] 10.1 10*3/uL High 1.8-7.7 [facility] Comment on above: Performed By: #### P T #### [address] Neutrophils/100 WBC (Bld) 79.0 % Normal . [facility] Comment on above: Performed By: #### P T #### [address] NRBC% 0.2 /100{WBC} Normal 0-0.5 [facility] Comment on above: Performed By: #### P T #### [place] [address] [place] Platelet mean volume (Bld) [Entitic vol] 8.3 fL Normal 6.3-10.7 [facility] Comment on above: Performed By: #### P T #### [address] Platelets (Bld) [#/Vol] 291 10*3/uL Normal 150-450 [facility] Comment on above: Performed By: #### P T #### [address] RBC (Bld) [#/Vol] 3.73 10*6/uL Normal 3.60-5.00 [facility] Comment on above: Performed By: #### P T #### [address] WBC (Bld) [#/Vol] 12.8 10*3/uL High 3.8-11.6 [facility] Comment on above: Performed By: #### P T #### [address] Comprehensive Metabolic Pane maikel 06-21-2024 Albumin [Mass/Vol] 3.3 g/dL Low 3.5-5.7 [facility] Comment on above: Performed By: #### P T #### [address] Albumin/Globulin [Mass ratio] 1.3 {ratio} Normal [facility] Comment on above: Performed By: #### P T #### [address] ALP [Catalytic activity/Vol] 176 U/L High 34-104 [facility] Comment on above: Performed By: #### P T #### [address] ALT [Catalytic activity/Vol] 258 U/L High 7-52 [facility] Comment on above: Performed By: #### P T #### [address] Anion gap [Moles/Vol] 11.4 mmol/L Normal 6.0-15.0 [facility] Comment on above: Performed By: #### P T #### [address] AST [Catalytic activity/Vol] 44 U/L High 13-39 [facility] Comment on above: Performed By: #### P T #### [address] Bilirubin [Mass/Vol] 0.9 mg/dL Normal 0.3-1.0 [facility] Comment on above: Performed By: #### P T #### [address] Calcium [Mass/Vol] 8.9 mg/dL Normal 8.6-10.3 [facility] Comment on above: Performed By: #### P T #### [address] Chloride [Moles/Vol] 94 mmol/L Low 98-107 [facility] Comment on above: Performed By: #### P T #### [address] CO2 [Moles/Vol] 31.2 mmol/L High 21.0-31.0 [facility] Comment on above: Performed By: #### P T #### [address] Creatinine [Mass/Vol] 1.01 mg/dL Normal 0.60-1.20 [facility] Comment on above: Performed By: #### P T #### [address] Creatinine Clr Calc Pharmacy 50.08 Normal [facility] Comment on above: Performed By: #### P T #### [address] Estimated GFR 56.980 mL/Min Normal [facility] Comment on above: Performed By: #### P T #### [address] Globulin (S) [Mass/Vol] 2.6 g/dL Normal [facility] Comment on above: Performed By: #### P T #### [address] Glucose [Mass/Vol] 137 mg/dL High 70-100 [facility] Comment on above: Result Comment: [place] Glucose Reference Range is dependent on time and content of last meal. Glucose of more than 200 mg/dL in a nonstressed, ambulatory subject supports the diagnosis of Diabetes Mellitus. ADA recommended reference range Performed By: #### P T #### [address] Potassium [Moles/Vol] 3.6 mmol/L Normal 3.5-5.1 [facility] Comment on above: Performed By: #### P T #### [address] Protein [Mass/Vol] 5.9 g/dL Low 6.4-8.9 [facility] Comment on above: Performed By: #### P T #### [address] Sodium [Moles/Vol] 133 mmol/L Low 136-145 [facility] Comment on above: Performed By: #### P T #### [address] Urea nitrogen [Mass/Vol] 32 mg/dL High 7-25 [facility] Comment on above: Performed By: #### P T #### [address] Creatinine [Mass/volume] in Serum or PlasmaOrdered By: David Castellanos on 06-21-2024 Creatinine [Mass/Vol] Creatinine [Mass/v olume] in Serum or Plasma 0.60-1.20 [facility] Eosinophils Auto (Bld) [#/Vo l]Ordered By: David Castellanos on 06-21-2024 Eosinophils (Bld) [#/Vol] Automated eosinophil count 0.0-0.45 [facility] Eosinophils/100 WBC Auto (Bl d)Ordered By: David Castellanos on 06-21-2024 Eosinophils/100 WBC (Bld) Automated eosinophil % . [facility] Erythrocyte distribution wid th Auto (RBC) [Ratio]Ordered By: David Castellanos on 06-21-2024 Erythrocyte distribution width (RBC) [Ratio] Erythrocyte distribution width [Ratio] by Automated count 11.9-15.3 [facility] Globulin Calc (S) [Mass/Vol] Ordered By: David Castellanos on 06-21-2024 Globulin (S) [Mass/Vol] Serum globulin m easurement by calculation (mass/volume) [facility] Glucose Poct Glucometerson 0 06-21-2024 Glucose [Mass/Vol] 126 mg/dL Normal [facility] Comment on above: Result Comment: [place] Glucose Reference Range is dependent on time and content of last meal. Glucose of more than 200 mg/dL in a nonstressed, ambulatory subject supports the diagnosis of Diabetes Mellitus. PERFORMED BY: [place] [address] PATHOLOGIST ELECTRIC FREIGHT CAR OPERATOR MIKY TOMAS M.D. Performed By: #### P T #### [address] Commemt1 Glu2: Cleaned Meter Normal [facility] Comment on above: Result Comment: PERF ORMED BY: [place] [phone] PATHOLOGIST ELECTRIC FREIGHT CAR OPERATOR MIKY TOMAS M.D. Performed By: #### G LULS #### Point of Care testing , Glucose [Mass/Vol] 163 mg/dL Normal [facility] Comment on above: Result Comment: [place] Glucose Reference Range is dependent on time and content of last meal. Glucose of more than 200 mg/dL in a nonstressed, ambulatory subject supports the diagnosis of Diabetes Mellitus. Performed By: #### G LULS #### Point of Care testing , Glucose [Mass/Vol] 126 mg/dL Normal [facility] Comment on above: Result Comment: [place] Glucose Reference Range is dependent on time and content of last meal. Glucose of more than 200 mg/dL in a nonstressed, ambulatory subject supports the diagnosis of Diabetes Mellitus. PERFORMED BY: [place] [address] PATHOLOGIST ELECTRIC FREIGHT CAR OPERATOR MIKY TOMAS M.D. Performed By: #### T MEET, CMP #### [address] Glucose [Mass/volume] in Ser um or PlasmaOrdered By: David Castellanos on 06-21-2024 Glucose [Mass/Vol] Glucose [Mass/volume ] in Serum or Plasma High 70-100 [facility] Comment on above: ADA recommended refe rence rangeRandom Glucose Reference Range is dependent on time and content of last meal. Glucose of more than 200 mg/dL in a nonstressed, ambulatory subject supports the diagnosis of Diabetes Mellitus. Hematocrit Auto (Bld) [Volum e fraction]Ordered By: David Castellanos on 06-21-2024 Hematocrit (Bld) [Volume fraction] Hematocrit [Volume Fraction] of Blood by Automated count 34.0-46.4 [facility] Hemoglobin [Mass/volume] in BloodOrdered By: David Castellanos on 06-21-2024 Hemoglobin (Bld) [Mass/Vol] Hemoglobin [Mass/volume] in Blood Low 11.8-15.4 [facility] Leukocytes [#/volume] correc patricio for nucleated erythrocytes in Blood by Automated counOrdered By: David Castellanos on 06-21-2024 WBC corrected for nucl RBC Auto (Bld) [#/Vol] Leukocytes [#/volume] corrected for nucleated erythrocytes in Blood by Automated coun High 3.8-11.6 [facility] Lymphocytes Auto (Bld) [#/Vo l]Ordered By: David Castellanos on 06-21-2024 Lymphocytes (Bld) [#/Vol] Lymphocytes [#/volume] in Blood by Automated count 1.00-4.8 [facility] Lymphocytes/100 WBC Auto (Bl d)Ordered By: David Castellanos on 06-21-2024 Lymphocytes/100 WBC (Bld) Lymphocytes/100 leukocytes in Blood by Automated count . [facility] MCH Auto (RBC) [Entitic mass ]Ordered By: David Castellanos on 06-21-2024 MCH (RBC) [Entitic mass] MCH [Entitic mass] by Automated count 24.7-34.3 [facility] MCHC Auto (RBC) [Mass/Vol]Or dered By: David Castellanos on 06-21-2024 MCHC (RBC) [Mass/Vol] MCHC [Mass/volume] by Automated count 32.0-35.0 [facility] MCV Auto (RBC) [Entitic vol] Ordered By: David Castellanos on 06-21-2024 MCV (RBC) [Entitic vol] MCV [Entitic vol ume] by Automated count 80-100 [facility] Monocytes Auto (Bld) [#/Vol] Ordered By: David Castellanos on 06-21-2024 Monocytes (Bld) [#/Vol] Automated blood monocyte count High 0.0-0.8 [facility] Monocytes/100 WBC Auto (Bld) Ordered By: David Castellanos on 06-21-2024 Monocytes/100 WBC (Bld) Automated monocyte % . [facility] Neutrophils Auto (Bld) [#/Vo l]Ordered By: David Castellanos on 06-21-2024 Neutrophils (Bld) [#/Vol] Neutrophils [#/volume] in Blood by Automated count High 1.8-7.7 [facility] Neutrophils/100 WBC Auto (Bl d)Ordered By: David Castellanos on 06-21-2024 Neutrophils/100 WBC (Bld) Automated neutrophil % . [facility] No Panel InformationOrdered By: David Castellanos on 06-21-2024 Estimated GFR (CKD-EPI) 56.980 mL/Min [facility] Creatinine Clearance (Chem 50.08 [facility] Nucleated erythrocytes [Pres ence] in Blood by Automated countOrdered By: David Castellanos on 06-21-2024 Nucleated RBC Auto Ql (Bld) Nucleated erythrocytes [Presence] in Blood by Automated count 0-0.5 [facility] Clinic Platelet mean volume Auto (B ld) [Entitic vol]Ordered By: David Castellanos on 06-21-2024 Platelet mean volume (Bld) [Entitic vol] Platelet mean volume [Entitic volume] in Blood by Automated count 6.3-10.7 [facility] Platelets Auto (Bld) [#/Vol] Ordered By: David Castellanos on 06-21-2024 Platelets (Bld) [#/Vol] Platelets [#/vol ume] in Blood by Automated count 150-450 [facility] Potassium [Moles/volume] in Serum or PlasmaOrdered By: David Castellanos on 06-21-2024 Potassium [Moles/Vol] Potassium [Moles/v olume] in Serum or Plasma 3.5-5.1 [facility] Prealbuminon 06-21-2024 Prealbumin [Mass/Vol] 11.8 mg/dL Low 17.0-34.0 [facility] Comment on above: Result Comment: PERF ORMED BY: [place] [address] PATHOLOGIST [employer]PER[employer] MIKY TOMAS M.D. Performed By: #### T RIG, CMP #### [address] Prealbumin [Mass/volume] in Serum or PlasmaOrdered By: David Castellanos on 06-21-2024 Prealbumin [Mass/Vol] Prealbumin [Mass/v olume] in Serum or Plasma Low 17.0-34.0 [facility] Protein [Mass/volume] in Ser um or PlasmaOrdered By: David Castellanos on 06-21-2024 Protein [Mass/Vol] Protein [Mass/volume ] in Serum or Plasma Low 6.4-8.9 [facility] Prothrombin Time INRon 06-21 INR Coag (PPP) [Relative time] 2.4 {INR} Normal [facility] Comment on above: Result Comment: INR Therapeutic Range A) Pre- and Peroperative OAT started two weeks before surgery. NOT HIP SURGERY: 1.5 - 2.5 HIP SURGERY: 2 - 3 B) Primary and secondary prevention of venous THROMBOSIS: 2 - 3 C) Active venous thrombosis, pulmonary embolism and prevention of recurrent venous thrombosis: 2 - 3 D) Prevention of arterial thromboembolism including patients with mechanical heart valves: 3 - 4.5 PERFORMED BY: [place] [address] PATHOLOGIST [employer] OPER[employer] MIKY TOMAS M.D. Performed By: #### P T #### [address] PT Coag (PPP) [Time] 26.8 s High 9.0-12.9 [facility] Comment on above: Result Comment: A he matocrit value greater than 55% may lead to inaccurate results in coagulation testing. Patients having hematocrit values >55% require a special collection tube for coagulation studies. Please contact the laboratory at [phone] for redraw instructions. Performed By: #### P T #### [address] RBC Auto (Bld) [#/Vol]Ordere d By: David Castellanos on 06-21-2024 RBC (Bld) [#/Vol] Erythrocytes [#/volu me] in Blood by Automated count 3.60-5.00 [facility] Serum or plasma albumin/glob ulin mass ratioOrdered By: David Castellanos on 06-21-2024 Albumin/Globulin [Mass ratio] Serum or plasma albumin/globulin mass ratio [facility] Serum or plasma anion gap de terminationOrdered By: David Castellanos on 06-21-2024 Anion gap [Moles/Vol] Serum or plasma an ion gap determination 6.0-15.0 [facility] Sodium [Moles/volume] in Ser um or PlasmaOrdered By: David Castellanos on 06-21-2024 Sodium [Moles/Vol] Sodium [Moles/volume ] in Serum or Plasma Low 136-145 [facility] Urea nitrogen [Mass/volume] in Serum or PlasmaOrdered By: David Castellanos on 06-21-2024 Urea nitrogen [Mass/Vol] Urea nitrogen [Mass/volume] in Serum or Plasma High 7-25 [facility] WBC Auto (Bld) [#/Vol]Ordere d By: David Castellanos on 06-21-2024 WBC (Bld) [#/Vol] Leukocytes [#/volume ] in Blood by Automated count High 3.8-11.6 [facility] Alanine aminotransferase [En zymatic activity/volume] in Serum or PlasmaOrdered By: Jaron Hicks on 06-20-2024 ALT [Catalytic activity/Vol] Alanine aminotransferase [Enzymatic activity/volume] in Serum or Plasma High 7-52 [facility] Albumin [Mass/volume] in Ser um or Plasma by Bromocresol green (BCG) dye binding methoOrdered By: Jaron Hicks on 06-20-2024 Albumin BCG dye [Mass/Vol] Albumin [Mass/volume] in Serum or Plasma by Bromocresol green (BCG) dye binding metho 3.5-5.7 [facility] Alkaline phosphatase [Enzyma tic activity/volume] in Serum or PlasmaOrdered By: Jaron Hicks on 06-20-2024 ALP [Catalytic activity/Vol] Alkaline phosphatase [Enzymatic activity/volume] in Serum or Plasma High 34-104 [facility] Aspartate aminotransferase [ Enzymatic activity/volume] in Serum or PlasmaOrdered By: Jaron Hicks on 06-20-2024 AST [Catalytic activity/Vol] Aspartate aminotransferase [Enzymatic activity/volume] in Serum or Plasma High 13-39 [facility] Basophils Auto (Bld) [#/Vol] Ordered By: Thang Ruth on 06-20-2024 Basophils (Bld) [#/Vol] Automated basophil count 0.0-0.2 [facility] Basophils/100 WBC Auto (Bld) Ordered By: Thang Ruth on 06-20-2024 Basophils/100 WBC (Bld) Automated basophil % . [facility] Bilirubin.total [Mass/volume ] in Serum or PlasmaOrdered By: Jaron Hicks on 06-20-2024 Bilirubin [Mass/Vol] Bilirubin.total [Mass/volume] in Serum or Plasma 0.3-1.0 [facility] Calcium [Mass/volume] in Ser um or PlasmaOrdered By: Jaron Hicks on 06-20-2024 Calcium [Mass/Vol] Calcium [Mass/volume ] in Serum or Plasma 8.6-10.3 [facility] Carbon dioxide, total [Moles /volume] in Serum or PlasmaOrdered By: Jaron Barksdalesosahra on 06-20-2024 CO2 [Moles/Vol] Carbon dioxide, tota l [Moles/volume] in Serum or Plasma High 21.0-31.0 [facility] Chloride [Moles/volume] in S ashley or PlasmaOrdered By: Jaron Barksdalesouf on 06-20-2024 Chloride [Moles/Vol] Chloride [Moles/vol ume] in Serum or Plasma Low 98-107 [facility] Complete Blood Count Auto Di ffon 06-20-2024 Basophils (Bld) [#/Vol] 0.0 10*3/uL Normal 0.0-0.2 [facility] Comment on above: Result Comment: PERF ORMED BY: [place] [address] PATHOLOGIST [employer] MIKY TOAMS M.D. Performed By: #### P P, CBC #### [address] Basophils/100 WBC (Bld) 0.2 % Normal . [facility] Comment on above: Performed By: #### P P, CBC #### [address] Eosinophils (Bld) [#/Vol] 0.1 10*3/uL Normal 0.0-0.45 [facility] Comment on above: Performed By: #### P P, CBC #### [address] Eosinophils/100 WBC (Bld) 1.0 % Normal . [facility] Comment on above: Performed By: #### P P, CBC #### [address] Erythrocyte distribution width (RBC) [Ratio] 14.0 % Normal 11.9-15.3 [facility] Comment on above: Performed By: #### P P, CBC #### [address] Hematocrit (Bld) [Volume fraction] 36.0 % Normal 34.0-46.4 [facility] Comment on above: Performed By: #### P P, CBC #### [address] Hemoglobin (Bld) [Mass/Vol] 12.0 g/dL Normal 11.8-15.4 [facility] Comment on above: Performed By: #### P P, CBC #### [address] Lymphocytes (Bld) [#/Vol] 1.3 10*3/uL Normal 1.00-4.8 [facility] Comment on above: Performed By: #### P P, CBC #### [address] Lymphocytes/100 WBC (Bld) 9.5 % Normal . [facility] Comment on above: Performed By: #### P P, CBC #### [address] MCH (RBC) [Entitic mass] 30.7 pg Normal 24.7-34.3 [facility] Comment on above: Performed By: #### P P, CBC #### [address] MCV (RBC) [Entitic vol] 92.1 fL Normal 80-100 [facility] Comment on above: Performed By: #### P P, CBC #### [address] Mean Corpuscular HGB Conc 33.4 g/dL Normal 32.0-35.0 [facility] Comment on above: Performed By: #### P P, CBC #### [address] Monocytes (Bld) [#/Vol] 1.6 10*3/uL High 0.0-0.8 [facility] Comment on above: Performed By: #### P P, CBC #### [address] Monocytes/100 WBC (Bld) 11.6 % Normal . [facility] Comment on above: Result Comment: Abso lute monocytosis is commonly reactive in nature. However, if unexplained, recommend follow-up CBC in 3 months to evaluate for persistence. Performed By: #### P P, CBC #### [facility] [address] Neutrophils (Bld) [#/Vol] 10.4 10*3/uL High 1.8-7.7 [facility] Comment on above: Performed By: #### P P, CBC #### [address] Neutrophils/100 WBC (Bld) 77.7 % Normal . [facility] Comment on above: Performed By: #### P P, CBC #### [address] NRBC% 0.7 /100{WBC} High 0-0.5 [facility] Comment on above: Performed By: #### P P, CBC #### [place] [address] [place] Platelet mean volume (Bld) [Entitic vol] 8.5 fL Normal 6.3-10.7 [facility] Comment on above: Performed By: #### P P, CBC #### [place] [address] [place] Platelets (Bld) [#/Vol] 293 10*3/uL Normal 150-450 [facility] Comment on above: Performed By: #### P P, CBC #### [place] [address] [place] RBC (Bld) [#/Vol] 3.91 10*6/uL Normal 3.60-5.00 [facility] Comment on above: Performed By: #### P P, CBC #### [place] [address] [place] WBC (Bld) [#/Vol] 13.4 10*3/uL High 3.8-11.6 [facility] Comment on above: Performed By: #### P P, CBC #### [address] Comprehensive Metabolic Pane maikel 06-20-2024 Albumin [Mass/Vol] 3.5 g/dL Normal 3.5-5.7 [facility] Comment on above: Performed By: #### T RIG, CMP #### [address] Albumin/Globulin [Mass ratio] 1.3 {ratio} Normal [facility] Comment on above: Performed By: #### T RIG, CMP #### [address] ALP [Catalytic activity/Vol] 189 U/L High 34-104 [facility] Comment on above: Performed By: #### T RIG, CMP #### [address] ALT [Catalytic activity/Vol] 382 U/L High 7-52 [facility] Comment on above: Performed By: #### T RIG, CMP #### [address] Anion gap [Moles/Vol] 10.8 mmol/L Normal 6.0-15.0 [facility] Comment on above: Performed By: #### T RIG, CMP #### [address] AST [Catalytic activity/Vol] 61 U/L High 13-39 [facility] Comment on above: Performed By: #### T RIG, CMP #### [address] Bilirubin [Mass/Vol] 0.8 mg/dL Normal 0.3-1.0 [facility] Comment on above: Performed By: #### T RIG, CMP #### [address] Calcium [Mass/Vol] 9.6 mg/dL Normal 8.6-10.3 [facility] Comment on above: Performed By: #### T RIG, CMP #### [place] [address] [place] Chloride [Moles/Vol] 95 mmol/L Low 98-107 [facility] Comment on above: Performed By: #### T RIG, CMP #### [address] CO2 [Moles/Vol] 32.8 mmol/L High 21.0-31.0 [facility] Comment on above: Performed By: #### T RIG, CMP #### [address] Creatinine [Mass/Vol] 1.20 mg/dL Normal 0.60-1.20 [facility] Comment on above: Performed By: #### T RIG, CMP #### [address] Creatinine Clr Calc Pharmacy 41.16 Normal [facility] Comment on above: Result Comment: PERF ORMED BY: [place] [address] PATHOLOGIST [employer] OPER[employer] MIKY TOMAS M.D. Performed By: #### T RIG, CMP #### [address] Estimated GFR 46.333 mL/Min Normal [facility] Comment on above: Performed By: #### T RIG, CMP #### [address] Globulin (S) [Mass/Vol] 2.8 g/dL Normal [facility] Comment on above: Performed By: #### T RIG, CMP #### [address] Glucose [Mass/Vol] 82 mg/dL Normal 70-100 [facility] Comment on above: Result Comment: [place] Glucose Reference Range is dependent on time and content of last meal. Glucose of more than 200 mg/dL in a nonstressed, ambulatory subject supports the diagnosis of Diabetes Mellitus. ADA recommended reference range Performed By: #### T RIG, CMP #### [address] Potassium [Moles/Vol] 3.6 mmol/L Normal 3.5-5.1 [facility] Comment on above: Performed By: #### T RIG, CMP #### [facility] [address] Protein [Mass/Vol] 6.3 g/dL Low 6.4-8.9 [facility] Comment on above: Performed By: #### T RIG, CMP #### [facility] [address] Sodium [Moles/Vol] 135 mmol/L Low 136-145 [facility] Comment on above: Performed By: #### T RIG, CMP #### [facility] [address] Urea nitrogen [Mass/Vol] 42 mg/dL High 7-25 [facility] Comment on above: Performed By: #### T RIG, CMP #### [facility] [address] Creatinine [Mass/volume] in Serum or PlasmaOrdered By: Jaron Hicks on 06-20-2024 Creatinine [Mass/Vol] Creatinine [Mass/v olume] in Serum or Plasma 0.60-1.20 [facility] Eosinophils Auto (Bld) [#/Vo l]Ordered By: Thang Ruth on 06-20-2024 Eosinophils (Bld) [#/Vol] Automated eosinophil count 0.0-0.45 [facility] Eosinophils/100 WBC Auto (Bl d)Ordered By: Thang Ruth on 06-20-2024 Eosinophils/100 WBC (Bld) Automated eosinophil % . [facility] Erythrocyte distribution wid th Auto (RBC) [Ratio]Ordered By: Thang Ruth on 06-20-2024 Erythrocyte distribution width (RBC) [Ratio] Erythrocyte distribution width [Ratio] by Automated count 11.9-15.3 [facility] Globulin Calc (S) [Mass/Vol] Ordered By: Jaron Hicks on 06-20-2024 Globulin (S) [Mass/Vol] Serum globulin m easurement by calculation (mass/volume) [facility] Glucose Glucometer (BldC) [M ass/Vol]Ordered By: Sebastien Cardenas on 06-20-2024 Glucose [Mass/Vol] Capillary blood gluc ose measurement by glucometer (mass/volume) [facility] Comment on above: Random Glucose Refer ence Range is dependent on time and content of last meal. Glucose of more than 200 mg/dL in a nonstressed, ambulatory subject supports the diagnosis of Diabetes Mellitus. Glucose Poct Glucometerson 0 06-20-2024 Commemt1 Glu2: Cleaned Meter Normal [facility] Comment on above: Result Comment: PERF ORMED BY: [address] [place] [address] PATHOLOGIST [employer] OPER[employer] MIKY TOMAS M.D. Performed By: #### P P, CBC #### [facility] [address] [place] [address] Glucose [Mass/Vol] 140 mg/dL Normal [facility] Comment on above: Result Comment: [place] om Glucose Reference Range is dependent on time and content of last meal. Glucose of more than 200 mg/dL in a nonstressed, ambulatory subject supports the diagnosis of Diabetes Mellitus. Performed By: #### P P, CBC #### [facility] [address] [place] [address] Glucose [Mass/Vol] 261 mg/dL Normal [facility] Comment on above: Result Comment: [place] om Glucose Reference Range is dependent on time and content of last meal. Glucose of more than 200 mg/dL in a nonstressed, ambulatory subject supports the diagnosis of Diabetes Mellitus. PERFORMED BY: [address] [place] [id number] PATHOLOGIST ELECT[employer] OPERATOR MIKY TOMAS M.D. Performed By: #### G LULS #### Point of Care testing , Glucose [Mass/Vol] 90 mg/dL Normal [facility] Comment on above: Result Comment: [place] om Glucose Reference Range is dependent on time and content of last meal. Glucose of more than 200 mg/dL in a nonstressed, ambulatory subject supports the diagnosis of Diabetes Mellitus. PERFORMED BY: [address] [place] [id number] PATHOLOGIST ELECT[employer] OPERATOR MIKY TOMAS M.D. Performed By: #### P P, CBC #### [address] Glucose [Mass/volume] in Ser um or PlasmaOrdered By: Jaron Hicks on 06-20-2024 Glucose [Mass/Vol] Glucose [Mass/volume ] in Serum or Plasma 70-100 [facility] Comment on above: ADA recommended refe rence rangeRandom Glucose Reference Range is dependent on time and content of last meal. Glucose of more than 200 mg/dL in a nonstressed, ambulatory subject supports the diagnosis of Diabetes Mellitus. Hematocrit Auto (Bld) [Volum e fraction]Ordered By: Thang Ruth on 06-20-2024 Hematocrit (Bld) [Volume fraction] Hematocrit [Volume Fraction] of Blood by Automated count 34.0-46.4 [facility] Hemoglobin [Mass/volume] in BloodOrdered By: Thang Ruth on 06-20-2024 Hemoglobin (Bld) [Mass/Vol] Hemoglobin [Mass/volume] in Blood 11.8-15.4 [facility] INR in Platelet poor plasma by Coagulation assayOrdered By: Frandy Cabrera on 06-20-2024 INR Coag (PPP) [Relative time] INR in Platelet poor plasma by Coagulation assay [facility] Comment on above: INR Therapeutic Rang e A) Pre- and Peroperative OAT started two weeks before surgery. NOT HIP SURGERY: 1.5 - 2.5 HIP SURGERY: 2 - 3B) Primary and secondary prevention of venous THROMBOSIS: 2 - 3C) Active venous thrombosis, pulmonary embolismand prevention of recurrent venous thrombosis: 2 - 3D) Prevention of arterial thromboembolismincluding patients with mechanical heart valves: 3 - 4.5 Leukocytes [#/volume] correc patricio for nucleated erythrocytes in Blood by Automated counOrdered By: Thang Ruth on 06-20-2024 WBC corrected for nucl RBC Auto (Bld) [#/Vol] Leukocytes [#/volume] corrected for nucleated erythrocytes in Blood by Automated coun High 3.8-11.6 [facility] Lymphocytes Auto (Bld) [#/Vo l]Ordered By: Thang Ruth on 06-20-2024 Lymphocytes (Bld) [#/Vol] Lymphocytes [#/volume] in Blood by Automated count 1.00-4.8 [facility] Lymphocytes/100 WBC Auto (Bl d)Ordered By: Thang Ruth on 06-20-2024 Lymphocytes/100 WBC (Bld) Lymphocytes/100 leukocytes in Blood by Automated count . [facility] MCH Auto (RBC) [Entitic mass ]Ordered By: Thang Ruth on 06-20-2024 MCH (RBC) [Entitic mass] MCH [Entitic mass] by Automated count 24.7-34.3 [facility] MCHC Auto (RBC) [Mass/Vol]Or dered By: Thang Ruth on 06-20-2024 MCHC (RBC) [Mass/Vol] MCHC [Mass/volume] by Automated count 32.0-35.0 [facility] MCV Auto (RBC) [Entitic vol] Ordered By: Thang Ruth on 06-20-2024 MCV (RBC) [Entitic vol] MCV [Entitic vol ume] by Automated count 80-100 [facility] Monocytes Auto (Bld) [#/Vol] Ordered By: Thang Ruth on 06-20-2024 Monocytes (Bld) [#/Vol] Automated blood monocyte count High 0.0-0.8 [facility] Monocytes/100 WBC Auto (Bld) Ordered By: Thang Ruth on 06-20-2024 Monocytes/100 WBC (Bld) Automated monocyte % . [facility] Comment on above: Absolute monocytosis is commonly reactive in nature. However, if unexplained, recommend follow-up CBC in 3 months to evaluate for persistence. Neutrophils Auto (Bld) [#/Vo l]Ordered By: Thang Ruth on 06-20-2024 Neutrophils (Bld) [#/Vol] Neutrophils [#/volume] in Blood by Automated count High 1.8-7.7 [facility] Neutrophils/100 WBC Auto (Bl d)Ordered By: Thang Ruth on 06-20-2024 Neutrophils/100 WBC (Bld) Automated neutrophil % . [facility] No Panel InformationOrdered By: Jaron Hicks on 06-20-2024 Estimated GFR (CKD-EPI) 46.333 mL/Min [facility] Creatinine Clearance (Chem 41.16 [facility] Nucleated erythrocytes [Pres ence] in Blood by Automated countOrdered By: Thang Ruth on 06-20-2024 Nucleated RBC Auto Ql (Bld) Nucleated erythrocytes [Presence] in Blood by Automated count High 0-0.5 [facility] Pathology study report docum entOrdered By: Eusebio Stone on 06-20-2024 Pathology study [facility] Other Phone: Platelet mean volume Auto (B ld) [Entitic vol]Ordered By: Thang Ruth on 06-20-2024 Platelet mean volume (Bld) [Entitic vol] Platelet mean volume [Entitic volume] in Blood by Automated count 6.3-10.7 [facility] Platelets Auto (Bld) [#/Vol] Ordered By: Thang Ruth on 06-20-2024 Platelets (Bld) [#/Vol] Platelets [#/vol ume] in Blood by Automated count 150-450 [facility] Potassium [Moles/volume] in Serum or PlasmaOrdered By: Jaron Hicks on 06-20-2024 Potassium [Moles/Vol] Potassium [Moles/v olume] in Serum or Plasma 3.5-5.1 [facility] Protein [Mass/volume] in Ser um or PlasmaOrdered By: Jaron Hicks on 06-20-2024 Protein [Mass/Vol] Protein [Mass/volume ] in Serum or Plasma Low 6.4-8.9 [facility] Prothrombin Time INRon 06-20 INR Coag (PPP) [Relative time] 3.1 {INR} Normal [facility] Comment on above: Result Comment: INR Therapeutic Range A) Pre- and Peroperative OAT started two weeks before surgery. NOT HIP SURGERY: 1.5 - 2.5 HIP SURGERY: 2 - 3 B) Primary and secondary prevention of venous THROMBOSIS: 2 - 3 C) Active venous thrombosis, pulmonary embolism and prevention of recurrent venous thrombosis: 2 - 3 D) Prevention of arterial thromboembolism including patients with mechanical heart valves: 3 - 4.5 PERFORMED BY: [place] [address] [place] [address] PATHOLOGIST E[employer] OPER[employer] MIKY TOMAS M.D. Performed By: #### T RIG, CMP #### [facility] [address] [place] [id number] [facility] PT Coag (PPP) [Time] 34.4 s High 9.0-12.9 [facility] Comment on above: Result Comment: A he matocrit value greater than 55% may lead to inaccurate results in coagulation testing. Patients having hematocrit values >55% require a special collection tube for coagulation studies. Please contact the laboratory at [phone] for redraw instructions. Performed By: #### T RIG, CMP #### [facility] [address] [place] [address] [facility] Prothrombin time (PT)Ordered By: Frandy Cabrera on 06-20-2024 PT Coag (PPP) [Time] Prothrombin time (PT) High 9.0- 12.9 [facility] Comment on above: A hematocrit value g reater than 55% may lead to inaccurate results in coagulation testing. Patients having hematocrit values >55% require a special collection tube for coagulation studies. Please contact the laboratory at [phone] for redraw instructions. RBC Auto (Bld) [#/Vol]Ordere d By: Thang Ruth on 06-20-2024 RBC (Bld) [#/Vol] Erythrocytes [#/volu me] in Blood by Automated count 3.60-5.00 [facility] Serum or plasma albumin/glob ulin mass ratioOrdered By: Jaron Hicks on 06-20-2024 Albumin/Globulin [Mass ratio] Serum or plasma albumin/globulin mass ratio [facility] Serum or plasma anion gap de terminationOrdered By: Jaron Hicks on 06-20-2024 Anion gap [Moles/Vol] Serum or plasma an ion gap determination 6.0-15.0 [facility] Sodium [Moles/volume] in Ser um or PlasmaOrdered By: Jaron Hicks on 06-20-2024 Sodium [Moles/Vol] Sodium [Moles/volume ] in Serum or Plasma Low 136-145 [facility] Urea nitrogen [Mass/volume] in Serum or PlasmaOrdered By: Jaron Hicks on 06-20-2024 Urea nitrogen [Mass/Vol] Urea nitrogen [Mass/volume] in Serum or Plasma High 7-25 [facility] WBC Auto (Bld) [#/Vol]Ordere d By: Thang Ruth on 06-20-2024 WBC (Bld) [#/Vol] Leukocytes [#/volume ] in Blood by Automated count High 3.8-11.6 [facility] Anisocytosis LM Ql (Bld)Orde red By: Thang Ruth on 06-19-2024 Anisocytosis Ql (Bld) Anisocytosis [Pres ence] in Blood by Light microscopy [facility] Band form neutrophils/100 WB C Manual cnt (Bld)Ordered By: Thang Ruth on 06-19-2024 Band form neutrophils/100 WBC (Bld) Peripheral white blood cell differential % bands, microscopic exam 0-5 [facility] Basophilic stippling [Presen ce] in Blood by Light microscopyOrdered By: Thang Ruth on 06-19-2024 Basophilic stippling LM Ql (Bld) Erythrocyte basophilic stippling detection [facility] Gruetli Laager cells [Presence] in Blo od by Light microscopyOrdered By: Thang Ruth on 06-19-2024 Richardson cells LM Ql (Bld) Gruetli Laager cells [Prese nce] in Blood by Light microscopy [facility] Comprehensive Metabolic Pane maikel 06-19-2024 Albumin [Mass/Vol] 3.6 g/dL Normal 3.5-5.7 [facility] Comment on above: Performed By: #### G LULS #### Point of Care testing , Albumin/Globulin [Mass ratio] 1.4 {ratio} Normal [facility] Comment on above: Performed By: #### G LULS #### Point of Care testing , ALP [Catalytic activity/Vol] 222 U/L High 34-104 [facility] Comment on above: Performed By: #### G LULS #### Point of Care testing , ALT [Catalytic activity/Vol] 565 U/L High 7-52 [facility] Comment on above: Performed By: #### G LULS #### Point of Care testing , Anion gap [Moles/Vol] 15.5 mmol/L High 6.0-15.0 [facility] Comment on above: Performed By: #### G LULS #### Point of Care testing , AST [Catalytic activity/Vol] 103 U/L High 13-39 [facility] Comment on above: Performed By: #### G LULS #### Point of Care testing , Bilirubin [Mass/Vol] 0.8 mg/dL Normal 0.3-1.0 [facility] Comment on above: Performed By: #### G LULS #### Point of Care testing , Calcium [Mass/Vol] 9.1 mg/dL Normal 8.6-10.3 [facility] Comment on above: Performed By: #### G LULS #### Point of Care testing , Chloride [Moles/Vol] 97 mmol/L Low 98-107 [facility] Comment on above: Performed By: #### G LULS #### Point of Care testing , CO2 [Moles/Vol] 27.2 mmol/L Normal 21.0-31.0 [facility] Comment on above: Performed By: #### G LULS #### Point of Care testing , Creatinine [Mass/Vol] 1.39 mg/dL Significan t change up 0.60-1.20 [facility] Comment on above: Performed By: #### G LULS #### Point of Care testing , Creatinine Clr Calc Pharmacy 35.18 Normal [facility] Comment on above: Result Comment: PERF ORMED BY: [address] [place] [address] PATHOLOGIST [employer]PER[employer] MIKY TOMAS M.D. Performed By: #### G LULS #### Point of Care testing , Estimated GFR 38.841 mL/Min Normal [facility] Comment on above: Performed By: #### G LULS #### Point of Care testing , Globulin (S) [Mass/Vol] 2.6 g/dL Normal [facility] Comment on above: Performed By: #### G LULS #### Point of Care testing , Glucose [Mass/Vol] 144 mg/dL High 70-100 [facility] Comment on above: Result Comment: [place] Glucose Reference Range is dependent on time and content of last meal. Glucose of more than 200 mg/dL in a nonstressed, ambulatory subject supports the diagnosis of Diabetes Mellitus. ADA recommended reference range Performed By: #### G LULS #### Point of Care testing , Potassium [Moles/Vol] 3.7 mmol/L Normal 3.5-5.1 [facility] Comment on above: Performed By: #### G LULS #### Point of Care testing , Protein [Mass/Vol] 6.2 g/dL Low 6.4-8.9 [facility] Comment on above: Performed By: #### G LULS #### Point of Care testing , Sodium [Moles/Vol] 136 mmol/L Normal 136-145 [facility] Comment on above: Performed By: #### G LULS #### Point of Care testing , Urea nitrogen [Mass/Vol] 52 mg/dL High 7-25 [facility] Comment on above: Performed By: #### G LULS #### Point of Care testing , Diff and CBCon 06-19-2024 Anisocytosis Ql (Bld) Slight Normal [facility] Comment on above: Performed By: #### G LULS #### Point of Care testing , Band form neutrophils/100 WBC (Bld) 1 % Normal 0-5 [facility] Comment on above: Performed By: #### G LULS #### Point of Care testing , Basophilic stippling LM Ql (Bld) Slight Normal [facility] Comment on above: Performed By: #### G LULS #### Point of Care testing , Crenated RBC Moderate Normal [facility] Comment on above: Performed By: #### G LULS #### Point of Care testing , Erythrocyte distribution width (RBC) [Ratio] 14.2 % Normal 11.9-15.3 [facility] Comment on above: Performed By: #### G LULS #### Point of Care testing , Giant Platelet Tally 1 /100{WBC} Normal [facility] Comment on above: Result Comment: PERF ORMED BY: [facility] [place] [address] PATHOLOGIST [employer]PER[employer] MIKY TOMAS M.D. Performed By: #### G LULS #### Point of Care testing , Hematocrit (Bld) [Volume fraction] 35.8 % Normal 34.0-46.4 [facility] Comment on above: Performed By: #### G LULS #### Point of Care testing , Hemoglobin (Bld) [Mass/Vol] 12.1 g/dL Normal 11.8-15.4 [facility] Comment on above: Performed By: #### G LULS #### Point of Care testing , Lymphocytes/100 WBC (Bld) 3 % Low 18-42 [facility] Comment on above: Performed By: #### G LULS #### Point of Care testing , MCH (RBC) [Entitic mass] 30.7 pg Normal 24.7-34.3 [facility] Comment on above: Performed By: #### G LULS #### Point of Care testing , MCV (RBC) [Entitic vol] 91.3 fL Normal 80-100 [facility] Physician [facility] Comment on above: Performed By: #### G LULS #### Point of Care testing , Mean Corpuscular HGB Conc 33.7 g/dL Normal 32.0-35.0 [facility] Comment on above: Performed By: #### G LULS #### Point of Care testing , Metamyelocytes 3 % High 0-0 [facility] Comment on above: Performed By: #### G LULS #### Point of Care testing , Microcytosis Slight Normal [facility] Comment on above: Performed By: #### G LULS #### Point of Care testing , Monocytes/100 WBC (Bld) 9 % Normal 2-11 [facility] Comment on above: Performed By: #### G LULS #### Point of Care testing , Myelocytes 1 % High 0-0 [facility] Comment on above: Performed By: #### G LULS #### Point of Care testing , Ovalocytes Slight Normal [facility] Comment on above: Performed By: #### G LULS #### Point of Care testing , Platelet Estimate Normal Normal Normal [facility] Comment on above: Performed By: #### G LULS #### Point of Care testing , Platelet mean volume (Bld) [Entitic vol] 8.6 fL Normal 6.3-10.7 [facility] Comment on above: Performed By: #### G LULS #### Point of Care testing , Platelet Morphology Normal Normal Normal [facility] Comment on above: Result Comment: PERF ORMED BY: [facility] [place] [address] PATHOLOGIST [employer] OPER[employer] MIKY TOMAS M.D. Performed By: #### G LULS #### Point of Care testing , Platelets (Bld) [#/Vol] 288 10*3/uL Normal 150-450 [facility] Comment on above: Performed By: #### G LULS #### Point of Care testing , Poikilocytosis Moderate Normal [facility] Comment on above: Performed By: #### G LULS #### Point of Care testing , Polychromasia Moderate Normal [facility] Comment on above: Performed By: #### G LULS #### Point of Care testing , RBC (Bld) [#/Vol] 3.92 10*6/uL Normal 3.60-5.00 [facility] Comment on above: Performed By: #### G LULS #### Point of Care testing , Segmented neutrophils/100 WBC (Bld) 83 % High 50-70 [facility] Comment on above: Performed By: #### G LULS #### Point of Care testing , Toxic Vacuolation Slight Normal [facility] Comment on above: Performed By: #### G LULS #### Point of Care testing , WBC (Bld) [#/Vol] 15.4 10*3/uL High 3.8-11.6 [facility] Comment on above: Performed By: #### G LULS #### Point of Care testing , Erythrocyte morphology findi ng [Identifier] in BloodOrdered By: Thang Ruth on 06-19-2024 RBC morphology finding Nom (Bld) RBC morphology [facility] Giant platelets/100 leukocyt es [Ratio] in Blood by Manual countOrdered By: Thang Ruth on 06-19-2024 Giant platelets/100 WBC Manual cnt (Bld) [Ratio] Giant platelets/100 leukocytes [Ratio] in Blood by Manual count [facility] Glucose Poct Glucometerson 0 06-19-2024 Glucose [Mass/Vol] 154 mg/dL Normal [facility] Comment on above: Result Comment: [place] Glucose Reference Range is dependent on time and content of last meal. Glucose of more than 200 mg/dL in a nonstressed, ambulatory subject supports the diagnosis of Diabetes Mellitus. PERFORMED BY: [place] [address] PATHOLOGIST [employer] OPERATOR MIKY TOMAS M.D. Performed By: #### T RIG, CMP #### [address] Glucose [Mass/Vol] 186 mg/dL Normal [facility] Comment on above: Result Comment: [facility] Glucose Reference Range is dependent on time and content of last meal. Glucose of more than 200 mg/dL in a nonstressed, ambulatory subject supports the diagnosis of Diabetes Mellitus. PERFORMED BY: [place] [address] PATHOLOGIST E[employer] OPERATOR MIKY TOMAS M.D. Performed By: #### G LULS #### Point of Care testing , Glucose [Mass/Vol] 250 mg/dL Normal [facility] Comment on above: Result Comment: [facility] Glucose Reference Range is dependent on time and content of last meal. Glucose of more than 200 mg/dL in a nonstressed, ambulatory subject supports the diagnosis of Diabetes Mellitus. PERFORMED BY: [place] [address] PATHOLOGIST E[employer] OPERATOR MIKY TOMAS M.D. Performed By: #### G LULS #### Point of Care testing , Glucose [Mass/Vol] 179 mg/dL Normal [facility] Comment on above: Result Comment: [place] Glucose Reference Range is dependent on time and content of last meal. Glucose of more than 200 mg/dL in a nonstressed, ambulatory subject supports the diagnosis of Diabetes Mellitus. PERFORMED BY: [place] [address] PATHOLOGIST E[employer] OPERATOR MIKY TOMAS M.D. Performed By: #### T RIG, CMP #### [address] Lymphocytes/100 WBC Manual c nt (Bld)Ordered By: Thang Ruth on 06-19-2024 Lymphocytes/100 WBC (Bld) Lymphocytes/100 leukocytes in Blood by Manual count Low 18-42 [facility] Metamyelocytes/100 WBC Manua l cnt (Bld)Ordered By: Thang Ruth on 06-19-2024 Metamyelocytes/100 WBC (Bld) Metamyelocytes/100 leukocytes in Blood by Manual count High 0-0 [facility] Microcytes LM Ql (Bld)Ordere d By: Thang Ruth on 06-19-2024 Microcytes Ql (Bld) Microcytes [Presence ] in Blood by Light microscopy [facility] Monocytes/100 WBC Manual cnt (Bld)Ordered By: Thang Ruth on 06-19-2024 Monocytes/100 WBC (Bld) Monocytes/100 le ukocytes in Blood by Manual count 2-11 [facility] Myelocytes/100 WBC Manual cn t (Bld)Ordered By: Thang Ruth on 06-19-2024 Myelocytes/100 WBC (Bld) Myelocytes/100 leukocytes in Blood by Manual count High 0-0 [facility] Ovalocytes [Presence] in Blo od by Light microscopyOrdered By: Thang Ruth on 06-19-2024 Ovalocytes LM Ql (Bld) Ovalocyte detection [facility] Platelet adequacy [Presence] in Blood by Light microscopyOrdered By: Thang Ruth on 06-19-2024 Platelets LM Ql (Bld) Platelet adequacy [Presence] in Blood by Light microscopy Normal [facility] Platelet morphology finding [Identifier] in BloodOrdered By: Thang Ruth on 06-19-2024 Platelet morphology finding Nom (Bld) Platelet morphology finding [Identifier] in Blood Normal [facility] Poikilocytosis [Presence] in Blood by Light microscopyOrdered By: Thang Ruth on 06-19-2024 Poikilocytosis LM Ql (Bld) Poikilocytosis [Presence] in Blood by Light microscopy [facility] Polychromasia [Presence] in Blood by Light microscopyOrdered By: Thang Ruth on 06-19-2024 Polychromasia LM Ql (Bld) Polychromasia [Presence] in Blood by Light microscopy [facility] Prothrombin Time INRon 06-19 INR Coag (PPP) [Relative time] 3.5 {INR} Normal [facility] Comment on above: Result Comment: INR Therapeutic Range A) Pre- and Peroperative OAT started two weeks before surgery. NOT HIP SURGERY: 1.5 - 2.5 HIP SURGERY: 2 - 3 B) Primary and secondary prevention of venous THROMBOSIS: 2 - 3 C) Active venous thrombosis, pulmonary embolism and prevention of recurrent venous thrombosis: 2 - 3 D) Prevention of arterial thromboembolism including patients with mechanical heart valves: 3 - 4.5 PERFORMED BY: [place] [address] PATHOLOGIST E[employer] OPERATOR MIKY TOMAS M.D. Performed By: #### P T #### [facility] [address] [place] [address] PT Coag (PPP) [Time] 39.0 s High 9.0-12.9 [facility] Comment on above: Result Comment: A he matocrit value greater than 55% may lead to inaccurate results in coagulation testing. Patients having hematocrit values >55% require a special collection tube for coagulation studies. Please contact the laboratory at [phone] for redraw instructions. Performed By: #### P T #### [facility] [address] [place] [address] [place] Segmented neutrophils/100 WB C Manual cnt (Bld)Ordered By: Thang Ruth on 06-19-2024 Segmented neutrophils/100 WBC (Bld) Manual blood segmented neutrophils/100 leukocytes High 50-70 [facility] Toxic leukocyte vacuolation detectionOrdered By: Thang Ruth on 06-19-2024 Leukocyte toxic vacuoles LM Ql (Bld) Toxic leukocyte vacuolation detection [facility] Acanthocytes [Presence] in B lood by Light microscopyOrdered By: Thang Ruth on 06-18-2024 Acanthocytes LM Ql (Bld) Acanthocytes [Presence] in Blood by Light microscopy [facility] Comprehensive Metabolic Pane maikel 06-18-2024 Albumin [Mass/Vol] 3.6 g/dL Normal 3.5-5.7 [facility] Comment on above: Performed By: #### G LULS #### Point of Care testing , Albumin/Globulin [Mass ratio] 1.3 {ratio} Normal [facility] Comment on above: Performed By: #### G LULS #### Point of Care testing , ALP [Catalytic activity/Vol] 227 U/L High 34-104 [facility] Comment on above: Performed By: #### G LULS #### Point of Care testing , ALT [Catalytic activity/Vol] 752 U/L High 7-52 [facility] Comment on above: Performed By: #### G LULS #### Point of Care testing , Anion gap [Moles/Vol] 13.5 mmol/L Normal 6.0-15.0 [facility] Comment on above: Performed By: #### G LULS #### Point of Care testing , AST [Catalytic activity/Vol] 172 U/L High 13-39 [facility] Comment on above: Performed By: #### G LULS #### Point of Care testing , Bilirubin [Mass/Vol] 0.8 mg/dL Normal 0.3-1.0 [facility] Comment on above: Performed By: #### G LULS #### Point of Care testing , Calcium [Mass/Vol] 8.8 mg/dL Normal 8.6-10.3 [facility] Comment on above: Performed By: #### G LULS #### Point of Care testing , Chloride [Moles/Vol] 95 mmol/L Low 98-107 [facility] Comment on above: Performed By: #### G LULS #### Point of Care testing , CO2 [Moles/Vol] 26.3 mmol/L Normal 21.0-31.0 [facility] Comment on above: Performed By: #### G LULS #### Point of Care testing , Creatinine [Mass/Vol] 1.97 mg/dL High 0.60-1.20 [facility] Comment on above: Performed By: #### G LULS #### Point of Care testing , Creatinine Clr Calc Pharmacy 24.82 Normal [facility] Comment on above: Performed By: #### G LULS #### Point of Care testing , Estimated GFR 25.559 mL/Min Normal [facility] Comment on above: Performed By: #### G LULS #### Point of Care testing , Globulin (S) [Mass/Vol] 2.8 g/dL Normal T [facility] Comment on above: Performed By: #### G LULS #### Point of Care testing , Glucose [Mass/Vol] 199 mg/dL High 70-100 [facility] Comment on above: Result Comment: [facility] Glucose Reference Range is dependent on time and content of last meal. Glucose of more than 200 mg/dL in a nonstressed, ambulatory subject supports the diagnosis of Diabetes Mellitus. ADA recommended reference range Performed By: #### G LULS #### Point of Care testing , Potassium [Moles/Vol] 3.8 mmol/L Normal 3.5-5.1 [facility] Comment on above: Result Comment: Hemo lysis is present at a level that could interfere with the result. Contact lab if redraw is required Performed By: #### G LULS #### Point of Care testing , Protein [Mass/Vol] 6.4 g/dL Normal 6.4-8.9 [facility] Comment on above: Performed By: #### G LULS #### Point of Care testing , Sodium [Moles/Vol] 131 mmol/L Low 136-145 [facility] Comment on above: Performed By: #### G LULS #### Point of Care testing , Urea nitrogen [Mass/Vol] 65 mg/dL High 7-25 [facility] Comment on above: Performed By: #### G LULS #### Point of Care testing , Glucose Poct Glucometerson 0 06-18-2024 Commemt1 Glu2: Cleaned Meter Normal [facility] Comment on above: Result Comment: PERF ORMED BY: [place] [address] PATHOLOGIST ELECT[employer] OPERATOR MIKY TOMAS M.D. Performed By: #### T RIG, CMP #### [address] Glucose [Mass/Vol] 139 mg/dL Normal [facility] Comment on above: Result Comment: [place] om Glucose Reference Range is dependent on time and content of last meal. Glucose of more than 200 mg/dL in a nonstressed, ambulatory subject supports the diagnosis of Diabetes Mellitus. Performed By: #### T RIG, CMP #### [address] Glucose [Mass/Vol] 199 mg/dL Normal [facility] Comment on above: Result Comment: [place] om Glucose Reference Range is dependent on time and content of last meal. Glucose of more than 200 mg/dL in a nonstressed, ambulatory subject supports the diagnosis of Diabetes Mellitus. PERFORMED BY: [place] [address] PATHOLOGIST ELECT[employer] OPERATOR MIKY TOMAS M.D. Performed By: #### G LULS #### Point of Care testing , Glucose [Mass/Vol] 253 mg/dL Normal [facility] Comment on above: Result Comment: [place] om Glucose Reference Range is dependent on time and content of last meal. Glucose of more than 200 mg/dL in a nonstressed, ambulatory subject supports the diagnosis of Diabetes Mellitus. PERFORMED BY: [place] [address] PATHOLOGIST ELECT[employer] OPERATOR MIKY TOMAS M.D. Performed By: #### P P, CBC #### [address] Glucose [Mass/Vol] 230 mg/dL Normal [facility] Comment on above: Result Comment: [facility] Glucose Reference Range is dependent on time and content of last meal. Glucose of more than 200 mg/dL in a nonstressed, ambulatory subject supports the diagnosis of Diabetes Mellitus. PERFORMED BY: [facility] [place] [address] PATHOLOGIST ELECT[employer] OPERATOR MIKY TOMAS M.D. Performed By: #### G BEKA #### Point of Care testing , Maikel 06-18-2024 L ------ Specimen: [id number] Received: 06/18/24 Status: POOL [place] Num: [id number] Spec Type: Impression Subm Dr: Thang Ruth MD Tissues: PATHPER Procedures: PATHREVIEW Age/ Patient Sex Location Account Attending Physician Lyric Juarez 78/F 4N [id number] Sebastien Cardenas MD SPEC NUM: RECD: 06/18/24 STATUS: POOL COSTASammie NUM: [id number] ULISES: 06/18/[address] [facility] [address]: Thang Ruth MD ENTERED: 06/18/[address] [facility] [address]: SPEC TYPE: Impression DEPT: PA ORDERED: PATHREVIEW ORDERED: PATHREVIEW Pathologist Review Peripheral blood smear evaluation: - Mild neutrophilic leukocytosis with left shift consistent with infection. - White blood cell and Platelet: Unremarkable. CPT: 08659 CBC Date Time Test Result Flag (u) Normal Range 06/16/24 0420 Eos 1 1-3 % Lg Plt Slight 06/17/24 0439 Seg 76 H 50-70 % Band 4 0-5 % Lymph 10 L 18-42 % Reactive Lymphs 1 0-12 % [place] 8 2-11 % [place] 2 H 0-0 % NRBC 19 H 0-0 /100 WBC Gt Plt 1 /100 WBC 06/18/24 0435 WBC 16.8 H 3.8-11.6 X10E3/uL RBC 3.81 3.60-5.00 x10E6/uL HGB 11.8 11.8-15.4 g/dL HCT 34.7 34.0-46.4 % MCV 90.8 80-100 fl MCH 31.0 24.7-34.3 pg Specimen: Received: 06/18/24 Status: JIMSumit [place] Num: [id number] Spec Type: Impression Subm Dr: Thang Ruth MD Tissues: PATHPER Procedures: PATHREVIEW Patient: Lyric Juarez [id number] (Continued) Specimen: Received: 06/18/24 (Continued) TARIQ (Continued) Signed (signature on file) Eusebio Stone MD 06/20/24 1023 Specimen: Received: 06/18/24 Status: POOL [place] Num: [id number] Spec Type: Impression Subm Dr: Thang Ruth MD Tissues: PATHPER Procedures: PATHREVIEW Patient: Lyric Juarez [id number] (Continued) Specimen: - Received: 06/18/24 (Continued) CBC (Continued) MCHC 34.2 32.0-35.0 g/dL RDW 14.3 11.9-15.3 % Plt 323 150-450 x10E3/uL MPV 8.9 6.3-10.7 fl Neut % (Auto) 77.9 . % Lymp % (Auto) 7.1 . % [place] % (Auto) 14.5 . % Eos % (Auto) 0.2 . % Baso % (Auto) 0.3 . % NRBC% 4.5 H 0-0.5 /100 WBC Neut # (Auto) 13.1 H 1.8-7.7 x10E3/uL Lymph # (Auto) 1.2 1.00-4.8 x10E3/uL [place] # (Auto) 2.4 H 0.0-0.8 x10E3/uL Eos # (Auto) 0.0 0.0-0.45 x10E3/uL Baso# (Auto) 0.1 0.0-0.2 x10E3/uL Polychrom Slight Poik Moderate [place] Slight Oval Moderate Crenated RBC Slight Acantho Moderate Plt Est Normal Normal Plt Morphology Normal Normal Specimen: [id number] Received: 06/18/24 Status: POOL [place] Num: [id number] Spec Type: Impression Subm Dr: Thang Ruth MD Tissues: PATHPER Procedures: PATHREVIEW Patient: Lyric Juarez [id number] (Continued) Signed (signature on file) Eusebio Stone MD 06/20/24 1023 Normal [facility] Magnesiumon 06-18-2024 Magnesium [Mass/Vol] 2.4 mg/dL Normal 1.9-2.7 [facility] Comment on above: Result Comment: PERF ORMED BY: [facility] [place] [address] PATHOLOGIST E[employer] OPERATOR MIKY TOMAS M.D. Performed By: #### G LULS #### Point of Care testing , Magnesium [Mass/volume] in S ashley or PlasmaOrdered By: Elvis Philip on 06-18-2024 Magnesium [Mass/Vol] Magnesium [Mass/vol ume] in Serum or Plasma 1.9-2.7 [facility] No Panel InformationOrdered By: Jaron Hicks on 06-18-2024 Bedside Glucose Comment Glu2: cleaned meter [facility] No Panel InformationOrdered By: Thang Ruth on 06-18-2024 Slides for Pathologist Review N/A [facility] Prothrombin Time INRon 06-18 INR Coag (PPP) [Relative time] 2.3 {INR} Normal [facility] Comment on above: Result Comment: INR Therapeutic Range A) Pre- and Peroperative OAT started two weeks before surgery. NOT HIP SURGERY: 1.5 - 2.5 HIP SURGERY: 2 - 3 B) Primary and secondary prevention of venous THROMBOSIS: 2 - 3 C) Active venous thrombosis, pulmonary embolism and prevention of recurrent venous thrombosis: 2 - 3 D) Prevention of arterial thromboembolism including patients with mechanical heart valves: 3 - 4.5 PERFORMED BY: [place] [address] PATHOLOGIST ELECT[employer]IC [employer]IGHT CAR OPERATOR MIKY TOMAS M.D. Performed By: #### P P, CBC #### [address] PT Coag (PPP) [Time] 25.2 s High 9.0-12.9 [facility] Comment on above: Result Comment: A he matocrit value greater than 55% may lead to inaccurate results in coagulation testing. Patients having hematocrit values >55% require a special collection tube for coagulation studies. Please contact the laboratory at [phone] for redraw instructions. Performed By: #### P P, CBC #### [address] Scan and CBCon 06-18-2024 Acanthocytes Moderate Normal [facility] Comment on above: Performed By: #### P P, CBC #### [address] Anisocytosis Ql (Bld) Slight Normal [facility] Comment on above: Performed By: #### P P, CBC #### [address] Basophils (Bld) [#/Vol] 0.1 10*3/uL Normal 0.0-0.2 [facility] Comment on above: Performed By: #### P P, CBC #### [address] Basophils/100 WBC (Bld) 0.3 % Normal . [facility] Comment on above: Performed By: #### P P, CBC #### [address] Crenated RBC Slight Normal [facility] Comment on above: Performed By: #### P P, CBC #### [address] Eosinophils (Bld) [#/Vol] 0.0 10*3/uL Normal 0.0-0.45 [facility] Comment on above: Performed By: #### P P, CBC #### [address] Eosinophils/100 WBC (Bld) 0.2 % Normal . [facility] Comment on above: Performed By: #### P P, CBC #### [address] Erythrocyte distribution width (RBC) [Ratio] 14.3 % Normal 11.9-15.3 [facility] Comment on above: Performed By: #### P P, CBC #### [address] Hematocrit (Bld) [Volume fraction] 34.7 % Normal 34.0-46.4 [facility] Comment on above: Performed By: #### P P, CBC #### [address] Hemoglobin (Bld) [Mass/Vol] 11.8 g/dL Normal 11.8-15.4 [facility] Comment on above: Performed By: #### P P, CBC #### [address] Lymphocytes (Bld) [#/Vol] 1.2 10*3/uL Normal 1.00-4.8 [facility] Comment on above: Performed By: #### P P, CBC #### [address] Lymphocytes/100 WBC (Bld) 7.1 % Normal . [facility] Comment on above: Performed By: #### P P, CBC #### [address] MCH (RBC) [Entitic mass] 31.0 pg Normal 24.7-34.3 [facility] Comment on above: Performed By: #### P P, CBC #### [address] MCV (RBC) [Entitic vol] 90.8 fL Normal 80-100 [facility] Comment on above: Performed By: #### P P, CBC #### [address] Mean Corpuscular HGB Conc 34.2 g/dL Normal 32.0-35.0 [facility] Comment on above: Performed By: #### P P, CBC #### [place] [address] [place] Monocytes (Bld) [#/Vol] 2.4 10*3/uL High 0.0-0.8 [facility] Comment on above: Performed By: #### P P, CBC #### [address] Monocytes/100 WBC (Bld) 14.5 % Normal . [facility] Comment on above: Performed By: #### P P, CBC #### [address] Neutrophils (Bld) [#/Vol] 13.1 10*3/uL High 1.8-7.7 [facility] Comment on above: Performed By: #### P P, CBC #### [address] Neutrophils/100 WBC (Bld) 77.9 % Normal . [facility] Comment on above: Performed By: #### P P, CBC #### [address] NRBC% 4.5 /100{WBC} High 0-0.5 [facility] Comment on above: Performed By: #### P P, CBC #### [address] Ovalocytes Moderate Normal [facility] Comment on above: Performed By: #### P P, CBC #### [address] Platelet Estimate Normal Normal Normal [facility] Comment on above: Performed By: #### P P, CBC #### [address] Platelet mean volume (Bld) [Entitic vol] 8.9 fL Normal 6.3-10.7 [facility] Comment on above: Performed By: #### P P, CBC #### [address] Platelet Morphology Normal Normal Normal [facility] Comment on above: Result Comment: PERF ORMED BY: [place] [address] PATHOLOGIST ELECT[employer] OPERATOR MIKY TOMAS M.D. Performed By: #### P P, CBC #### [address] Platelets (Bld) [#/Vol] 323 10*3/uL Normal 150-450 [facility] Comment on above: Performed By: #### P P, CBC #### [address] Poikilocytosis Moderate Normal [facility] Comment on above: Performed By: #### P P, CBC #### [address] Polychromasia Slight Normal [facility] Comment on above: Performed By: #### P P, CBC #### [address] RBC (Bld) [#/Vol] 3.81 10*6/uL Normal 3.60-5.00 [facility] Comment on above: Performed By: #### P P, CBC #### [facility] [address] WBC (Bld) [#/Vol] 16.8 10*3/uL High 3.8-11.6 [facility] Comment on above: Performed By: #### P P, CBC #### [facility] [address] WBC (Bld) [#/Vol] 18.1 10*3/uL High 3.8-11.6 [facility] Comment on above: Performed By: #### P P, CBC #### [address] Basic Metabolic Panelon 02-0 -2024 Anion gap [Moles/Vol] 16.5 mmol/L High 6.0-15.0 [facility] Comment on above: Performed By: #### G LULS #### Point of Care testing , Calcium [Mass/Vol] 9.0 mg/dL Normal 8.6-10.3 [facility] Comment on above: Performed By: #### G LULS #### Point of Care testing , Chloride [Moles/Vol] 96 mmol/L Low 98-107 [facility] Comment on above: Performed By: #### G LULS #### Point of Care testing , CO2 [Moles/Vol] 22.5 mmol/L Normal 21.0-31.0 [facility] Comment on above: Performed By: #### G LULS #### Point of Care testing , Creatinine [Mass/Vol] 2.16 mg/dL Significan t change up 0.60-1.20 [facility] Comment on above: Performed By: #### G LULS #### Point of Care testing , Creatinine Clr Calc Pharmacy 22.70 Normal [facility] Comment on above: Performed By: #### G LULS #### Point of Care testing , Estimated GFR 22.886 mL/Min Normal [facility] Comment on above: Performed By: #### G LULS #### Point of Care testing , Glucose [Mass/Vol] 248 mg/dL High 70-100 [facility] Comment on above: Result Comment: [facility] Glucose Reference Range is dependent on time and content of last meal. Glucose of more than 200 mg/dL in a nonstressed, ambulatory subject supports the diagnosis of Diabetes Mellitus. ADA recommended reference range Performed By: #### G LULS #### Point of Care testing , Potassium [Moles/Vol] 4.0 mmol/L Normal 3.5-5.1 [facility] Comment on above: Performed By: #### G LULS #### Point of Care testing , Sodium [Moles/Vol] 131 mmol/L Low 136-145 [facility] Comment on above: Performed By: #### G LULS #### Point of Care testing , Urea nitrogen [Mass/Vol] 58 mg/dL High 7-25 [facility] Comment on above: Performed By: #### G LULS #### Point of Care testing , Bilirubin.direct [Mass/volum e] in Serum or PlasmaOrdered By: Elvis Philip on 06-17-2024 Bilirubin.direct [Mass/Vol] Bilirubin.direct [Mass/volume] in Serum or Plasma High 0.03-0.18 [facility] Coagulation Profileon 2024 aPTT Coag (Bld) [Time] 29.8 s Normal 25.1-36.5 [facility] Comment on above: Result Comment: A he matocrit value greater than 55% may lead to inaccurate results in coagulation testing. Patients having hematocrit values >55% require a special collection tube for coagulation studies. Please contact the laboratory at [phone] for redraw instructions. PERFORMED BY: [address] [address] PATHOLOGIST ELECT[employer] OPERATOR MIKY TOMAS M.D. Performed By: #### P P, CBC #### [address] [address] [facility] INR Coag (PPP) [Relative time] 1.4 {INR} Normal [facility] Comment on above: Result Comment: INR Therapeutic Range A) Pre- and Peroperative OAT started two weeks before surgery. NOT HIP SURGERY: 1.5 - 2.5 HIP SURGERY: 2 - 3 B) Primary and secondary prevention of venous THROMBOSIS: 2 - 3 C) Active venous thrombosis, pulmonary embolism and prevention of recurrent venous thrombosis: 2 - 3 D) Prevention of arterial thromboembolism including patients with mechanical heart valves: 3 - 4.5 Performed By: #### P P, CBC #### [address] PT Coag (PPP) [Time] 15.4 s High 9.0-12.9 [facility] Comment on above: Result Comment: A he matocrit value greater than 55% may lead to inaccurate results in coagulation testing. Patients having hematocrit values >55% require a special collection tube for coagulation studies. Please contact the laboratory at [phone] for redraw instructions. Performed By: #### P P, CBC #### [address] Complete Blood Count Auto Di ffon 06-17-2024 Erythrocyte distribution width (RBC) [Ratio] 14.6 % Normal 11.9-15.3 [facility] Comment on above: Performed By: #### P P, CBC #### [address] Hematocrit (Bld) [Volume fraction] 35.9 % Normal 34.0-46.4 [facility] Comment on above: Performed By: #### P P, CBC #### [address] Hemoglobin (Bld) [Mass/Vol] 12.1 g/dL Normal 11.8-15.4 [facility] Comment on above: Performed By: #### P P, CBC #### [address] MCH (RBC) [Entitic mass] 30.3 pg Normal 24.7-34.3 [facility] Comment on above: Performed By: #### P P, CBC #### [address] [place] [address] [place] MCV (RBC) [Entitic vol] 90.1 fL Normal 80-100 [facility] Comment on above: Performed By: #### P P, CBC #### [address] Mean Corpuscular HGB Conc 33.7 g/dL Normal 32.0-35.0 [facility] Comment on above: Performed By: #### P P, CBC #### [address] Platelet mean volume (Bld) [Entitic vol] 9.0 fL Normal 6.3-10.7 [facility] Comment on above: Result Comment: PERF ORMED BY: [place] [address] PATHOLOGIST ELECT[employer] OPERATOR MIKY TOMAS M.D. Performed By: #### P P, CBC #### [address] Platelets (Bld) [#/Vol] 280 10*3/uL Normal 150-450 [facility] Comment on above: Performed By: #### P P, CBC #### [address] RBC (Bld) [#/Vol] 3.98 10*6/uL Normal 3.60-5.00 [facility] Comment on above: Performed By: #### P P, CBC #### [address] WBC (Bld) [#/Vol] 17.1 10*3/uL High 3.8-11.6 [facility] Comment on above: Performed By: #### P P, CBC #### [address] Diff and CBCon 06-17-2024 Acanthocytes Moderate Normal [facility] Comment on above: Performed By: #### P P, CBC #### [address] Band form neutrophils/100 WBC (Bld) 4 % Normal 0-5 [facility] Comment on above: Performed By: #### P P, CBC #### [place] [address] [place] Crenated RBC Moderate Normal [facility] Comment on above: Performed By: #### P P, CBC #### [address] Giant Platelet Tally 1 /100{WBC} Normal [facility] Comment on above: Performed By: #### P P, CBC #### [place] [address] [place] Lymphocytes/100 WBC (Bld) 10 % Low 18-42 [facility] Comment on above: Performed By: #### P P, CBC #### [place] [address] [place] Metamyelocytes 2 % High 0-0 [facility] Comment on above: Performed By: #### P P, CBC #### [place] [address] [place] Monocytes/100 WBC (Bld) 8 % Normal 2-11 [facility] Comment on above: Performed By: #### P P, CBC #### [place] [address] [place] Nucleated Red Blood Cell 19 /100{WBC} High 0-0 [facility] Comment on above: Performed By: #### P P, CBC #### [place] [address] [place] Ovalocytes Slight Normal [facility] Comment on above: Performed By: #### P P, CBC #### [address] Platelet Estimate Normal Normal Normal [facility] Comment on above: Performed By: #### P P, CBC #### [address] Platelet Morphology Normal Normal Normal [facility] Comment on above: Result Comment: PERF ORMED BY: [place] [address] PATHOLOGIST ELECT[employer] OPERATOR MIKY TOMAS M.D. Performed By: #### P P, CBC #### [address] Poikilocytosis Moderate Normal [facility] Comment on above: Performed By: #### P P, CBC #### [address] Polychromasia Slight Normal [facility] Comment on above: Performed By: #### P P, CBC #### [address] Reactive Lymphocytes 1 % Normal 0-12 [facility] Comment on above: Performed By: #### P P, CBC #### [address] Segmented neutrophils/100 WBC (Bld) 76 % High 50-70 [facility] Comment on above: Performed By: #### P P, CBC #### [address] Glucose Poct Glucometerson 0 06-17-2024 Glucose [Mass/Vol] 360 mg/dL Normal [facility] Comment on above: Result Comment: [facility] Glucose Reference Range is dependent on time and content of last meal. Glucose of more than 200 mg/dL in a nonstressed, ambulatory subject supports the diagnosis of Diabetes Mellitus. PERFORMED BY: [place] [address] PATHOLOGIST ELECTRIC F[employer]IGHT CAR OPERATOR MIKY TOMAS M.D. Performed By: #### G LULS #### Point of Care testing , Glucose [Mass/Vol] 248 mg/dL Normal [facility] Comment on above: Result Comment: [facility] Glucose Reference Range is dependent on time and content of last meal. Glucose of more than 200 mg/dL in a nonstressed, ambulatory subject supports the diagnosis of Diabetes Mellitus. PERFORMED BY: [place] [address] PATHOLOGIST ELECTRIC F[employer]IGHT CAR OPERATOR MIKY TOMAS M.D. Performed By: #### G LULS #### Point of Care testing , Glucose [Mass/Vol] 240 mg/dL Normal [facility] Comment on above: Result Comment: [facility] Glucose Reference Range is dependent on time and content of last meal. Glucose of more than 200 mg/dL in a nonstressed, ambulatory subject supports the diagnosis of Diabetes Mellitus. PERFORMED BY: [facility] [place] [address] PATHOLOGIST ELECT[employer]IC F[employer]IGHT CAR OPERATOR MIKY TOMAS M.D. Performed By: #### G LULS #### Point of Care testing , Hepatic Panelon 06-17-2024 Albumin [Mass/Vol] 3.8 g/dL Normal 3.5-5.7 [facility] Comment on above: Performed By: #### G LULS #### Point of Care testing , Albumin/Globulin [Mass ratio] 1.3 {ratio} Normal [facility] Comment on above: Performed By: #### G LULS #### Point of Care testing , ALP [Catalytic activity/Vol] 202 U/L High 34-104 [facility] Comment on above: Performed By: #### G LULS #### Point of Care testing , ALT [Catalytic activity/Vol] 1067 U/L High 7-52 [facility] Comment on above: Performed By: #### G LULS #### Point of Care testing , AST [Catalytic activity/Vol] 381 U/L High 13-39 [facility] Comment on above: Performed By: #### G LULS #### Point of Care testing , Bilirubin [Mass/Vol] 1.0 mg/dL Normal 0.3-1.0 [facility] Comment on above: Performed By: #### G LULS #### Point of Care testing , Bilirubin,Indirect 0.5 mg/dL Normal [facility] Comment on above: Performed By: #### G LULS #### Point of Care testing , Bilirubin.indirect [Mass/Vol] 0.50 mg/dL High 0.03-0.18 [facility] Comment on above: Performed By: #### G LULS #### Point of Care testing , Globulin (S) [Mass/Vol] 2.9 g/dL Normal [facility] Comment on above: Performed By: #### G LULS #### Point of Care testing , Protein [Mass/Vol] 6.7 g/dL Normal 6.4-8.9 [facility] Comment on above: Performed By: #### G LULS #### Point of Care testing , Magnesiumon 06-17-2024 Magnesium [Mass/Vol] 2.8 mg/dL High 1.9-2.7 [facility] Comment on above: Result Comment: PERF ORMED BY: [facility] [address] [place] [address] PATHOLOGIST ELECT[employer] F[employer] OPERATOR MIKY TOMAS M.D. Performed By: #### G LULS #### Point of Care testing , Nucleated RBC/100 WBC Manual cnt (Bld) [Ratio]Ordered By: Thang Ruth on 06-17-2024 Nucleated RBC/100 WBC (Bld) [Ratio] Nucleated erythrocytes/100 leukocytes [Ratio] in Blood by Manual count High 0-0 [facility] Serum or plasma non-glucuron idated bilirubin measurement (mass/volume)Ordered By: Elvis Philip on 06-17-2024 Bilirubin.indirect [Mass/Vol] Serum or plasma non-glucuronidated bilirubin measurement (mass/volume) [facility] Variant lymphocytes/100 WBC Manual cnt (Bld)Ordered By: Thang Ruth on 06-17-2024 Variant lymphocytes/100 WBC (Bld) Variant lymphocytes/100 leukocytes in Blood by Manual count 0-12 [facility] aPTT in Platelet poor plasma by Coagulation assayOrdered By: Jaron Hicks on 06-17-2024 aPTT Coag (PPP) [Time] Activated partial thromboplastin time (aPTT) in platelet poor plasma by coagulation a 25.1-36.5 [facility] Comment on above: A hematocrit value g reater than 55% may lead to inaccurate results in coagulation testing. Patients having hematocrit values >55% require a special collection tube for coagulation studies. Please contact the laboratory at [phone] for redraw instructions. Arterial Blood Gason 02-06-2 025 ABG Base Excess 0.8 mmol/L Normal -3.0-3.0 [facility] Comment on above: Performed By: #### T RIG, CMP #### [address] ABG Frac Inspired O2 30 % Normal [facility] Comment on above: Performed By: #### T RIG, CMP #### [address] ABG Oxygen Content 7.4 mmol/L Normal 6.6-9.7 [facility] Comment on above: Performed By: #### T RIG, CMP #### [address] ABG Oxygen Saturation 98.0 % Normal 95.0-100.0 [facility] Comment on above: Performed By: #### T RIG, CMP #### [address] ABG PCO2 28.9 mm[Hg] Off scale low 35.0-45.0 [facility] Comment on above: Performed By: #### T RIG, CMP #### [address] ABG PEEP 5 cmH20 Normal [facility] Comment on above: Performed By: #### T RIG, CMP #### [address] ABG PH 7.52 High 7.35-7.45 [facility] Comment on above: Performed By: #### T RIG, CMP #### [address] ABG PO2 121.0 mm[Hg] Off scale high 80.0-100.0 [facility] Comment on above: Performed By: #### T RIG, CMP #### [address] ABG TV 350 mL Normal [facility] Comment on above: Performed By: #### T RIG, CMP #### [address] Respiratory Critical Normal [facility] Comment on above: Result Comment: Crit ical Value called on: 06/16/2024 at 04:58 PERFORMED BY: [place] [address] PATHOLOGIST ELECT[employer] OPERATOR MIKY TOMAS M.D. Performed By: #### T RIG, CMP #### [address] Set Respiratory Rate 10 Normal [facility] Comment on above: Performed By: #### T RIG, CMP #### [address] VBG Draw Site Right Brachial Normal [facility] Comment on above: Performed By: #### T RIG, CMP #### [address] Ventilator Mode AC Normal [facility] Comment on above: Performed By: #### T RIG, CMP #### [address] Arterial Blood GasOrdered By : Jaron Hicks on 06-16-2024 CO2 [Moles/Vol] 23.7 mmol/L 23.0-27.0 [facility] Comment on above: Performed By: #### T RIG, CMP #### [address] HCO3 (Bld) [Moles/Vol] 22.9 mmol/L Low 23.0-29.0 [facility] Comment on above: Performed By: #### T RIG, CMP #### [address] Coagulation Profileon 2024 aPTT Coag (Bld) [Time] 25.7 s Normal 25.1-36.5 [facility] Comment on above: Result Comment: A he matocrit value greater than 55% may lead to inaccurate results in coagulation testing. Patients having hematocrit values >55% require a special collection tube for coagulation studies. Please contact the laboratory at [phone] for redraw instructions. PERFORMED BY: [place] [address] PATHOLOGIST ELECT[employer]IC F[employer]IGHT [employer] OPERATOR MIKY TOMAS M.D. Performed By: #### T RIG, CMP #### [address] INR Coag (PPP) [Relative time] 1.3 {INR} Normal [facility] Comment on above: Result Comment: INR Therapeutic Range A) Pre- and Peroperative OAT started two weeks before surgery. NOT HIP SURGERY: 1.5 - 2.5 HIP SURGERY: 2 - 3 B) Primary and secondary prevention of venous THROMBOSIS: 2 - 3 C) Active venous thrombosis, pulmonary embolism and prevention of recurrent venous thrombosis: 2 - 3 D) Prevention of arterial thromboembolism including patients with mechanical heart valves: 3 - 4.5 Performed By: #### T RIG, CMP #### [address] PT Coag (PPP) [Time] 15.1 s High 9.0-12.9 [facility] Comment on above: Result Comment: A he matocrit value greater than 55% may lead to inaccurate results in coagulation testing. Patients having hematocrit values >55% require a special collection tube for coagulation studies. Please contact the laboratory at [phone] for redraw instructions. Performed By: #### T RIG, CMP #### [address] Comprehensive Metabolic Pane maikel 06-16-2024 Albumin [Mass/Vol] 3.6 g/dL Normal 3.5-5.7 [facility] Comment on above: Performed By: #### T RIG, CMP #### [address] Albumin/Globulin [Mass ratio] 1.3 {ratio} Normal [facility] Comment on above: Performed By: #### T RIG, CMP #### [address] ALP [Catalytic activity/Vol] 162 U/L High 34-104 [facility] Comment on above: Performed By: #### T RIG, CMP #### [address] ALT [Catalytic activity/Vol] 1246 U/L High 7-52 [facility] Comment on above: Performed By: #### T RIG, CMP #### [address] Anion gap [Moles/Vol] 14.5 mmol/L Normal 6.0-15.0 [facility] Comment on above: Performed By: #### T RIG, CMP #### [address] AST [Catalytic activity/Vol] 706 U/L High 13-39 [facility] Comment on above: Performed By: #### T RIG, CMP #### [address] Bilirubin [Mass/Vol] 0.9 mg/dL Normal 0.3-1.0 [facility] Comment on above: Performed By: #### T RIG, CMP #### [address] Calcium [Mass/Vol] 8.5 mg/dL Low 8.6-10.3 [facility] Comment on above: Performed By: #### T RIG, CMP #### [address] Chloride [Moles/Vol] 92 mmol/L Low 98-107 [facility] Comment on above: Performed By: #### T RIG, CMP #### [address] CO2 [Moles/Vol] 26.4 mmol/L Normal 21.0-31.0 [facility] Comment on above: Performed By: #### T RIG, CMP #### [address] Creatinine [Mass/Vol] 1.58 mg/dL High 0.60-1.20 [facility] Comment on above: Performed By: #### T RIG, CMP #### [address] Creatinine Clr Calc Pharmacy 30.70 Normal [facility] Comment on above: Performed By: #### T RIG, CMP #### [address] Estimated GFR 33.306 mL/Min Normal [facility] Comment on above: Performed By: #### T RIG, CMP #### [address] Globulin (S) [Mass/Vol] 2.7 g/dL Normal T [facility] Comment on above: Performed By: #### T RIG, CMP #### [address] Glucose [Mass/Vol] 247 mg/dL High 70-100 [facility] Comment on above: Result Comment: [facility] Glucose Reference Range is dependent on time and content of last meal. Glucose of more than 200 mg/dL in a nonstressed, ambulatory subject supports the diagnosis of Diabetes Mellitus. ADA recommended reference range Performed By: #### T RIG, CMP #### [address] Potassium [Moles/Vol] 2.9 mmol/L Off scale low 3.5-5.1 [facility] Comment on above: Result Comment: Crit ical value result called at 0514 on 06/16/24 Performed By: #### T RIG, CMP #### [address] Protein [Mass/Vol] 6.3 g/dL Low 6.4-8.9 [facility] Comment on above: Performed By: #### T RIG, CMP #### [address] Sodium [Moles/Vol] 130 mmol/L Low 136-145 [facility] Comment on above: Performed By: #### T RIG, CMP #### [address] Urea nitrogen [Mass/Vol] 42 mg/dL High 7-25 [facility] Comment on above: Performed By: #### T RIG, CMP #### [place] [address] [place] Diff and CBCon 06-16-2024 Band form neutrophils/100 WBC (Bld) 10 % High 0-5 [facility] Comment on above: Performed By: #### T RIG, CMP #### [address] Crenated RBC Slight Normal [facility] Comment on above: Performed By: #### T RIG, CMP #### [address] Eosinophils/100 WBC (Bld) 1 % Normal 1-3 [facility] Comment on above: Performed By: #### T RIG, CMP #### [address] Erythrocyte distribution width (RBC) [Ratio] 14.6 % Normal 11.9-15.3 [facility] Comment on above: Performed By: #### T RIG, CMP #### [address] Giant Platelet Tally 3 /100{WBC} Normal [facility] Comment on above: Performed By: #### T RIG, CMP #### [address] Hematocrit (Bld) [Volume fraction] 31.7 % Low 34.0-46.4 [facility] Comment on above: Performed By: #### T RIG, CMP #### [address] Hemoglobin (Bld) [Mass/Vol] 10.8 g/dL Low 11.8-15.4 [facility] Comment on above: Performed By: #### T RIG, CMP #### [address] Large Platelets Slight Normal [facility] Comment on above: Result Comment: PERF ORMED BY: [place] [address] PATHOLOGIST [employer] OPERATOR MIKY TOMAS M.D. Performed By: #### T RIG, CMP #### [place] [id number] [place] Lymphocytes/100 WBC (Bld) 6 % Low 18-42 [facility] Comment on above: Performed By: #### T RIG, CMP #### [address] MCH (RBC) [Entitic mass] 30.4 pg Normal 24.7-34.3 [facility] Comment on above: Performed By: #### T RIG, CMP #### [address] MCV (RBC) [Entitic vol] 89.1 fL Normal 80-100 [facility] Comment on above: Performed By: #### T RIG, CMP #### [address] Mean Corpuscular HGB Conc 34.1 g/dL Normal 32.0-35.0 [facility] Comment on above: Performed By: #### T RIG, CMP #### [address] Monocytes/100 WBC (Bld) 11 % Normal 2-11 [facility] Comment on above: Performed By: #### T RIG, CMP #### [address] Nucleated Red Blood Cell 3 /100{WBC} High 0-0 [facility] Comment on above: Performed By: #### T RIG, CMP #### [address] Ovalocytes Slight Normal [facility] Comment on above: Performed By: #### T RIG, CMP #### [address] Platelet Estimate Normal Normal Normal [facility] Comment on above: Performed By: #### T RIG, CMP #### [address] Platelet mean volume (Bld) [Entitic vol] 8.7 fL Normal 6.3-10.7 [facility] Comment on above: Result Comment: PERF ORMED BY: [address] [id number] PATHOLOGIST [employer]LECT[employer] OPERATOR MIKY TOMAS M.D. Performed By: #### T RIG, CMP #### [address] Platelets (Bld) [#/Vol] 239 10*3/uL Normal 150-450 [facility] Comment on above: Performed By: #### T RIG, CMP #### [address] Poikilocytosis Slight Normal [facility] Comment on above: Performed By: #### T RIG, CMP #### [address] Polychromasia Slight Normal [facility] Comment on above: Performed By: #### T RIG, CMP #### [address] RBC (Bld) [#/Vol] 3.56 10*6/uL Low 3.60-5.00 [facility] Comment on above: Performed By: #### T RIG, CMP #### [address] Reactive Lymphocytes 1 % Normal 0-12 [facility] Comment on above: Performed By: #### T RIG, CMP #### [address] Segmented neutrophils/100 WBC (Bld) 71 % High 50-70 [facility] Comment on above: Performed By: #### T RIG, CMP #### [place] [address] [place] WBC (Bld) [#/Vol] 11.3 10*3/uL Normal 3.8-11.6 [facility] Comment on above: Performed By: #### T RIG, CMP #### [place] [address] [place] Eosinophils/100 WBC Manual c nt (Bld)Ordered By: Thang Ruth on 06-16-2024 Eosinophils/100 WBC (Bld) Eosinophils/100 leukocytes in Blood by Manual count 1-3 [facility] Glucose Poct Glucometerson 0 06-16-2024 Glucose [Mass/Vol] 290 mg/dL Normal [facility] Comment on above: Result Comment: [facility] Glucose Reference Range is dependent on time and content of last meal. Glucose of more than 200 mg/dL in a nonstressed, ambulatory subject supports the diagnosis of Diabetes Mellitus. PERFORMED BY: [place] [address] PATHOLOGIST [employer]LECT[employer] OPERATOR MIKY TOMAS M.D. Performed By: #### G LULS #### Point of Care testing , Glucose [Mass/Vol] 290 mg/dL Normal [facility] Comment on above: Result Comment: [facility] Glucose Reference Range is dependent on time and content of last meal. Glucose of more than 200 mg/dL in a nonstressed, ambulatory subject supports the diagnosis of Diabetes Mellitus. PERFORMED BY: [place] [address] PATHOLOGIST ELECT[employer] OPERATOR MIKY TOMAS M.D. Performed By: #### G LULS #### Point of Care testing , Glucose [Mass/Vol] 253 mg/dL Normal [facility] Comment on above: Result Comment: [facility] Glucose Reference Range is dependent on time and content of last meal. Glucose of more than 200 mg/dL in a nonstressed, ambulatory subject supports the diagnosis of Diabetes Mellitus. PERFORMED BY: [place] [id number] PATHOLOGIST ELECT[employer]IGHT [employer] OPERATOR MIKY TOMAS M.D. Performed By: #### G LULS #### Point of Care testing , Magnesiumon 06-16-2024 Magnesium [Mass/Vol] 2.6 mg/dL Normal 1.9-2.7 [facility] Comment on above: Result Comment: PERF ORMED BY: [place] [id number] PATHOLOGIST [employer] OPERATOR MIKY TOMAS M.D. Performed By: #### T RIG, CMP #### [place] [id number] [place] No Panel InformationOrdered By: Jaron Hicks on 06-16-2024 Arterial Blood Base Excess 0.8 mmol/L -3.0-3.0 [facility] Arterial Blood Oxygen Content 7.4 mmol/L 6.6-9.7 [facility] Arterial Blood Oxygen Saturation 98.0 % 95.0-100.0 [facility] Arterial Blood Partial Pressure CO2 28.9 mm[Hg] Critically low 35.0-45.0 [facility] Arterial Blood Partial Pressure O2 121.0 mm[Hg] Critically high 80.0-100.0 [facility] Arterial Blood pH 7.52 High 7.35-7.45 [facility] Blood Gas Critical Value See comment [facility] Comment on above: Critical Value damon d on: 06/16/2024 at 04:58 Blood Gas PEEP 5 cmH2O [facility] Blood Gas Sample Site Right brachial [facility] Blood Gas Set Respiration Rate 10 [facility] Blood Gas Tidal Volume 350 mL Fi [facility] Blood Gas Ventilator Mode Ac [facility] FiO2 30 % [facility] Platelets Large [Presence] i n Blood by Light microscopyOrdered By: Thang Ruth on 06-16-2024 Platelets Large LM Ql (Bld) Platelets Large [Presence] in Blood by Light microscopy [facility] X-ray reportOrdered By: Giancarlo Hunt on 06-16-2024 Study report [facility] [place] [address] XRay Report Signed Patient: Lyric Juarez MR#: [id number] : 1945 Acct:[id number] Age/Sex: 78 / F ADM Date: 5 Loc: Room: [address] [place] [address] Type: ADM IN Attending Dr: Jaron Hicks MD Copies to: Ana Mello APRN, YO Hicks MD~ Ordering Provider: Ana Mello APRN, ACNP-BC Date of Service: 06/16/24 XR/XR chest 1V portable: respiratory failure XR chest 1V portable 06/16/2024 4:36 AM SIGNS AND SYMPTOMS: respiratory failure PROTOCOL: Frontal radiograph of the chest COMPARISON: 06/15/2024 FINDINGS: The trachea is midline. The ET tube, enteric tube, and right IJ line are in satisfactory position. The heart and mediastinal structures are within normal limits. There is redemonstration of a pleural-parenchymal opacity at the left lung base. The bony thorax is intact. XR/XR chest 1V portable IMPRESSION: Unchanged chest. Impression dictated by: Giancarlo Hunt M.D.06/16/2024 8:14 AM Dictation Location: [place] [address] Transcribed By: [facility] 06/16/24813 Dictated By: Giancarlo Hunt II, MD 06/16/24811 Signed By: 06/16/24813 [facility] Work Phone: XR chest 1V portableon 06-16 XR chest 1V portable [facility] [address] XRay Report Signed Patient: Lyric Juarez MR#: [id number] : 1945 Acct:[id number] Age/Sex: 78 / F ADM Date: 06/11/24 Loc: Room: [address] [place] [address] Type: ADM IN Attending Dr: Jaron Hicks MD Copies to: Ana Mello APRN, JANY-PHILLIP Hicks MD Ordering Provider: Ana Mello APRN, ACNP-BC Date of Service: 06/16/24 XR/XR chest 1V portable: respiratory failure XR chest 1V portable 06/16/2024 4:36 AM SIGNS AND SYMPTOMS: respiratory failure PROTOCOL: Frontal radiograph of the chest COMPARISON: 06/15/2024 FINDINGS: The trachea is midline. The ET tube, enteric tube, and right IJ line are in satisfactory position. The heart and mediastinal structures are within normal limits. There is redemonstration of a pleural-parenchymal opacity at the left lung base. The bony thorax is intact. XR/XR chest 1V portable IMPRESSION: Unchanged chest. Impression dictated by: Giancarlo Hunt M.D.06/16/2024 8:14 AM Dictation Location: [facility]--24 Transcribed By: JC 06/16/24813 Dictated By: Giancarlo Hunt II, MD 06/16/24811 Signed By: 06/16/24813 Normal [facility] Arterial Blood Gason 025 ABG Base Excess 1.6 mmol/L Normal -3.0-3.0 [facility] Comment on above: Performed By: #### T RIG, CMP #### [address] ABG Frac Inspired O2 30 % Normal [facility] Comment on above: Performed By: #### T RIG, CMP #### [address] ABG Oxygen Content 6.9 mmol/L Normal 6.6-9.7 [facility] Comment on above: Performed By: #### T RIG, CMP #### [address] ABG Oxygen Saturation 98.1 % Normal 95.0-100.0 [facility] Comment on above: Performed By: #### T RIG, CMP #### [address] ABG PCO2 26.3 mm[Hg] Off scale low 35.0-45.0 [facility] Comment on above: Performed By: #### T RIG, CMP #### [address] ABG PEEP 5 cmH20 Normal [facility] Comment on above: Performed By: #### T RIG, CMP #### [address] ABG PH 7.56 High 7.35-7.45 [facility] Comment on above: Performed By: #### T RIG, CMP #### [address] ABG PO2 111.9 mm[Hg] High 80.0-100.0 [facility] Comment on above: Performed By: #### T RIG, CMP #### [address] ABG TV 400 mL Normal [facility] Comment on above: Performed By: #### T RIG, CMP #### [address] CO2 [Moles/Vol] 23.7 mmol/L Normal 23.0-27.0 [facility] Comment on above: Performed By: #### T RIG, CMP #### [address] HCO3 (Bld) [Moles/Vol] 22.9 mmol/L Low 23.0-29.0 [facility] Comment on above: Performed By: #### T RIG, CMP #### [address] Respiratory Critical Normal [facility] Comment on above: Result Comment: Crit ical Value called on: 06/15/2024 at 04:51 PERFORMED BY: [place] [address] PATHOLOGIST ELECT[employer] OPERATOR MIKY TOMAS M.D. Performed By: #### T RIG, CMP #### [address] Set Respiratory Rate 12 Normal [facility] Comment on above: Performed By: #### T RIG, CMP #### [address] VBG Draw Site Left Radial Normal [facility] Comment on above: Performed By: #### T RIG, CMP #### [address] Ventilator Mode AC Normal [facility] Comment on above: Performed By: #### T RIG, CMP #### [address] Coagulation Profileon 2024 aPTT Coag (Bld) [Time] 32.1 s Normal 25.1-36.5 [facility] Comment on above: Result Comment: A he matocrit value greater than 55% may lead to inaccurate results in coagulation testing. Patients having hematocrit values >55% require a special collection tube for coagulation studies. Please contact the laboratory at [phone] for redraw instructions. PERFORMED BY: [place] [address] PATHOLOGIST ELECT[employer] OPERATOR MIKY TOMAS M.D. Performed By: #### P P, CBC #### [address] INR Coag (PPP) [Relative time] 2.9 {INR} Normal [facility] Comment on above: Result Comment: INR Therapeutic Range A) Pre- and Peroperative OAT started two weeks before surgery. NOT HIP SURGERY: 1.5 - 2.5 HIP SURGERY: 2 - 3 B) Primary and secondary prevention of venous THROMBOSIS: 2 - 3 C) Active venous thrombosis, pulmonary embolism and prevention of recurrent venous thrombosis: 2 - 3 D) Prevention of arterial thromboembolism including patients with mechanical heart valves: 3 - 4.5 Performed By: #### P P, CBC #### [address] PT Coag (PPP) [Time] 32.3 s High 9.0-12.9 [facility] Comment on above: Result Comment: A he matocrit value greater than 55% may lead to inaccurate results in coagulation testing. Patients having hematocrit values >55% require a special collection tube for coagulation studies. Please contact the laboratory at [phone] for redraw instructions. Performed By: #### P P, CBC #### [address] Complete Blood Count Auto Di ffon 06-15-2024 Basophils (Bld) [#/Vol] 0.0 10*3/uL Normal 0.0-0.2 [facility] Comment on above: Result Comment: PERF ORMED BY: [place] [address] PATHOLOGIST ELECT[employer] OPERATOR MIKY TOMAS M.D. Performed By: #### P P, CBC #### [place] [address] [place] Basophils/100 WBC (Bld) 0.1 % Normal . T chrissy [facility] Comment on above: Performed By: #### P P, CBC #### [address] Eosinophils (Bld) [#/Vol] 0.0 10*3/uL Normal 0.0-0.45 [facility] Comment on above: Performed By: #### P P, CBC #### [address] Eosinophils/100 WBC (Bld) 0.0 % Normal . [facility] Comment on above: Performed By: #### P P, CBC #### [address] Erythrocyte distribution width (RBC) [Ratio] 13.9 % Normal 11.9-15.3 [facility] Comment on above: Performed By: #### P P, CBC #### [address] Hematocrit (Bld) [Volume fraction] 29.2 % Low 34.0-46.4 [facility] Comment on above: Performed By: #### P P, CBC #### [address] Hemoglobin (Bld) [Mass/Vol] 10.3 g/dL Low 11.8-15.4 [facility] Comment on above: Performed By: #### P P, CBC #### [place] [address] [place] Lymphocytes (Bld) [#/Vol] 0.4 10*3/uL Low 1.00-4.8 [facility] Comment on above: Performed By: #### P P, CBC #### [place] [address] [place] Lymphocytes/100 WBC (Bld) 5.6 % Normal . [facility] Comment on above: Performed By: #### P P, CBC #### [address] [place] [address] [place] MCH (RBC) [Entitic mass] 31.1 pg Normal 24.7-34.3 [facility] Comment on above: Performed By: #### P P, CBC #### [address] MCV (RBC) [Entitic vol] 88.5 fL Normal 80-100 [facility] Comment on above: Performed By: #### P P, CBC #### [address] Mean Corpuscular HGB Conc 35.2 g/dL High 32.0-35.0 [facility] Comment on above: Performed By: #### P P, CBC #### [address] Monocytes (Bld) [#/Vol] 0.4 10*3/uL Normal 0.0-0.8 [facility] Comment on above: Performed By: #### P P, CBC #### [address] Monocytes/100 WBC (Bld) 6.8 % Normal . [facility] Comment on above: Performed By: #### P P, CBC #### [address] Neutrophils (Bld) [#/Vol] 5.6 10*3/uL Normal 1.8-7.7 [facility] Comment on above: Performed By: #### P P, CBC #### [address] Neutrophils/100 WBC (Bld) 87.5 % Normal . [facility] Comment on above: Performed By: #### P P, CBC #### [address] NRBC% 0.1 /100{WBC} Normal 0-0.5 [facility] Comment on above: Performed By: #### P P, CBC #### [address] Platelet mean volume (Bld) [Entitic vol] 8.6 fL Normal 6.3-10.7 [facility] Comment on above: Performed By: #### P P, CBC #### [address] Platelets (Bld) [#/Vol] 190 10*3/uL Signific ant change down 150-450 [facility] Comment on above: Performed By: #### P P, CBC #### [address] RBC (Bld) [#/Vol] 3.30 10*6/uL Low 3.60-5.00 [facility] Comment on above: Performed By: #### P P, CBC #### [address] WBC (Bld) [#/Vol] 6.4 10*3/uL Normal 3.8-11.6 [facility] Comment on above: Performed By: #### P P, CBC #### [address] Comprehensive Metabolic Pane maikel 06-15-2024 Albumin [Mass/Vol] 3.4 g/dL Low 3.5-5.7 [facility] Comment on above: Performed By: #### T RIG, CMP #### [address] Albumin/Globulin [Mass ratio] 1.5 {ratio} Normal [facility] Comment on above: Performed By: #### T RIG, CMP #### [address] ALP [Catalytic activity/Vol] 142 U/L High 34-104 [facility] Comment on above: Performed By: #### T RIG, CMP #### [address] ALT [Catalytic activity/Vol] 1540 U/L High 7-52 [facility] Comment on above: Performed By: #### T RIG, CMP #### [address] Anion gap [Moles/Vol] 14.0 mmol/L Normal 6.0-15.0 [facility] Comment on above: Performed By: #### T RIG, CMP #### [address] AST [Catalytic activity/Vol] 1625 U/L High 13-39 [facility] Comment on above: Performed By: #### T RIG, CMP #### [address] Bilirubin [Mass/Vol] 1.1 mg/dL High 0.3-1.0 [facility] Comment on above: Performed By: #### T RIG, CMP #### [address] Calcium [Mass/Vol] 8.2 mg/dL Low 8.6-10.3 [facility] Comment on above: Performed By: #### T RIG, CMP #### [address] Chloride [Moles/Vol] 88 mmol/L Low 98-107 [facility] Comment on above: Performed By: #### T RIG, CMP #### [address] CO2 [Moles/Vol] 25.5 mmol/L Normal 21.0-31.0 [facility] Comment on above: Performed By: #### T RIG, CMP #### [address] Creatinine [Mass/Vol] 1.49 mg/dL High 0.60-1.20 [facility] Comment on above: Performed By: #### T RIG, CMP #### [facility] [address] [place] [address] [place] Creatinine Clr Calc Pharmacy 32.56 Normal [facility] Comment on above: Performed By: #### T RIG, CMP #### [address] Estimated GFR 35.734 mL/Min Normal [facility] Comment on above: Performed By: #### T RIG, CMP #### [facility] [address] Globulin (S) [Mass/Vol] 2.3 g/dL Normal T [facility] Comment on above: Performed By: #### T RIG, CMP #### [facility] [address] [place] [address] [place] Glucose [Mass/Vol] 201 mg/dL High 70-100 [facility] Comment on above: Result Comment: [place] [facility] Glucose Reference Range is dependent on time and content of last meal. Glucose of more than 200 mg/dL in a nonstressed, ambulatory subject supports the diagnosis of Diabetes Mellitus. ADA recommended reference range Performed By: #### T RIG, CMP #### [facility] [address] [place] [address] [place] Potassium [Moles/Vol] 2.5 mmol/L Off scale low 3.5-5.1 [facility] Comment on above: Result Comment: Crit ical Result Called to and read back by: CONNER GAVIN at: 06/15/2024 06:39:02 by:ANIA Performed By: #### T RIG, CMP #### [place] [address] [place] Protein [Mass/Vol] 5.7 g/dL Low 6.4-8.9 [facility] Comment on above: Performed By: #### T RIG, CMP #### [facility] [address] [place] [id number] [place] Sodium [Moles/Vol] 125 mmol/L Low 136-145 [facility] Comment on above: Performed By: #### T RIG, CMP #### [facility] [address] [place] [id number] [place] Urea nitrogen [Mass/Vol] 39 mg/dL High 7-25 [facility] Comment on above: Performed By: #### T RIG, CMP #### [facility] [address] [place] [id number] [place] Glucose Poct Glucometerson 0 06-15-2024 Glucose [Mass/Vol] 249 mg/dL Normal [facility] Comment on above: Result Comment: [place] [facility] Glucose Reference Range is dependent on time and content of last meal. Glucose of more than 200 mg/dL in a nonstressed, ambulatory subject supports the diagnosis of Diabetes Mellitus. PERFORMED BY: [place] [address] PATHOLOGIST ELECT[employer] CAR OPERATOR MIKY TOMAS M.D. Performed By: #### G LULS #### Point of Care testing , Glucose [Mass/Vol] 241 mg/dL Normal [facility] Comment on above: Result Comment: [place] [facility] Glucose Reference Range is dependent on time and content of last meal. Glucose of more than 200 mg/dL in a nonstressed, ambulatory subject supports the diagnosis of Diabetes Mellitus. PERFORMED BY: [place] [address] PATHOLOGIST ELECT[employer] OPERATOR MIKY TOMAS M.D. Performed By: #### T RIG, CMP #### [address] Glucose [Mass/Vol] 248 mg/dL Normal [facility] [facility] Comment on above: Result Comment: [place] om Glucose Reference Range is dependent on time and content of last meal. Glucose of more than 200 mg/dL in a nonstressed, ambulatory subject supports the diagnosis of Diabetes Mellitus. PERFORMED BY: [place] [address] PATHOLOGIST ELECTRIC FREIGHT CAR OPERATOR MIKY TOMAS M.D. Performed By: #### P P, CBC #### [address] Glucose [Mass/Vol] 217 mg/dL Normal [facility] Comment on above: Result Comment: [place] om Glucose Reference Range is dependent on time and content of last meal. Glucose of more than 200 mg/dL in a nonstressed, ambulatory subject supports the diagnosis of Diabetes Mellitus. PERFORMED BY: [place] [address] PATHOLOGIST ELECTRIC FREIGHT CAR OPERATOR MIKY TOMAS M.D. Performed By: #### P P, CBC #### [place] [address] [place] Glucose [Mass/Vol] 233 mg/dL Normal [facility] Comment on above: Result Comment: [facility] Glucose Reference Range is dependent on time and content of last meal. Glucose of more than 200 mg/dL in a nonstressed, ambulatory subject supports the diagnosis of Diabetes Mellitus. PERFORMED BY: [place] [address] PATHOLOGIST ELECTRIC FREIGHT CAR OPERATOR MIKY TOMAS M.D. Performed By: #### G LULS #### Point of Care testing , Hep C Ab wRfx to Qnt PCRon 0 06-15-2024 Hepatitis C Virus Antibody Non-Reactive Normal Non Reactive [facility] Comment on above: Order Comment: VALENTINA HERNANDEZ RN, KAH Performed By: #### T RIG, CMP #### [address] Interpretation Hepatitis C Comment Normal . [facility] Comment on above: Order Comment: VALENTINA HERNANDEZ RN, KAH Result Comment: Not infected with HCV unless early or acute infection is suspected (which may be delayed in an immunocompromised individual), or other evidence exists to indicate HCV infection. Performed By: #### T RIG, CMP #### [address] Hepatitis B Core Antibodyon 06-15-2024 Hepatitis B Core Antibody Negative Normal Negative [facility] Comment on above: Order Comment: VALENTINA HERNANDEZ RN, KAH Result Comment: Perf ormed at: - [facility] [id number] Representative: Marcos Major PhD, Phone: [phone] Performed By: #### T RIG, CMP #### [address] Hepatitis B Surface Antibody on 06-15-2024 Hepatitis B Surface Antibody Reactive Normal . [facility] Comment on above: Order Comment: VALENTINA HERNANDEZ RN, KAH Result Comment: Non Reactive: Not immune to HBV infection. Equivocal: Unable to determine if anti-HBs is present at levels consistent with immunity. Reactive: Anti-HBs concentration detected at greater than 10 mIU/mL. Individual is considered to be immune to infection with HBV. Performed By: #### T RIG, CMP #### [address] Hepatitis B Surface Antigeno n 06-15-2024 HBsAg Screen Negative Normal Negative [facility] Comment on above: Order Comment: VALENTINA HERNANDEZ RN,MONTSE Result Comment: PERF ORMED BY: [place] [address] PATHOLOGIST ELECTRIC [employer]IGHT CAR OPERATOR MIKY TOMAS M.D. Performed By: #### T RIG, CMP #### [address] Hepatitis B virus core antib johnathan assayOrdered By: Joselo Watson on 06-15-2024 Hepatitis B Core Total Antibody Negative Negative [facility] Comment on above: Performed at: [place] [id number] Director: Marcos Major PhD, Phone: [phone] Hepatitis C virus IgG Ab [Pr esence] in Serum or Plasma by ImmunoassayOrdered By: Joselo Watson on 06-15-2024 HCV IgG IA Ql Hepatitis C virus Ig G Ab [Presence] in Serum or Plasma by Immunoassay Non Reactive [facility] Magnesiumon 06-15-2024 Magnesium [Mass/Vol] 1.9 mg/dL Normal 1.9-2.7 [facility] Comment on above: Result Comment: PERF ORMED BY: [place] [address] PATHOLOGIST ELECTR[employer]IGHT [employer] OPERATOR MIKY TOMAS M.D. Performed By: #### T RIG, CMP #### [address] No Panel InformationOrdered By: Joselo Watson on 06-15-2024 Hepatitis C Interpretation Comment . [facility] Comment on above: Not infected with HC V unless early or acute infection issuspected (which may be delayed in an immunocompromisedindividual), or other evidence exists to indicate HCVinfection. Potassiumon 06-15-2024 Potassium [Moles/Vol] 4.3 mmol/L Significan t change down 3.5-5.1 [facility] Comment on above: Result Comment: PERF ORMED BY: [place] [address] PATHOLOGIST ELECTRIC F[employer]IGHT CAR OPERATOR MIKY TOMAS M.D. Performed By: #### T RIG, CMP #### [address] Prothrombin Time INRon 06-15 INR Coag (PPP) [Relative time] 1.9 {INR} Normal [facility] Comment on above: Result Comment: INR Therapeutic Range A) Pre- and Peroperative OAT started two weeks before surgery. NOT HIP SURGERY: 1.5 - 2.5 HIP SURGERY: 2 - 3 B) Primary and secondary prevention of venous THROMBOSIS: 2 - 3 C) Active venous thrombosis, pulmonary embolism and prevention of recurrent venous thrombosis: 2 - 3 D) Prevention of arterial thromboembolism including patients with mechanical heart valves: 3 - 4.5 PERFORMED BY: [place] [address] PATHOLOGIST ELECTRIC FREIGHT CAR OPERATOR MIKY TOMAS M.D. Performed By: #### T RIG, CMP #### [address] PT Coag (PPP) [Time] 21.7 s High 9.0-12.9 [facility] Comment on above: Result Comment: A he matocrit value greater than 55% may lead to inaccurate results in coagulation testing. Patients having hematocrit values >55% require a special collection tube for coagulation studies. Please contact the laboratory at [phone] for redraw instructions. Performed By: #### T RIG, CMP #### [address] Serum hepatitis B virus surf wade antibody detectionOrdered By: Joselo Watson on 06-15-2024 HBV surface Ab Ql (S) Hepatitis B virus surface Ab [Presence] in Serum . [facility] Comment on above: Non Reactive: Not im mune to HBV infection. Equivocal: Unable to determine if anti-HBs is present at levels consistent with immunity. Reactive: Anti-HBs concentration detected at greater than 10 mIU/mL. Individual is considered to be immune to infection with HBV. Serum or plasma hepatitis B virus surface antigen detection by immunoassayOrdered By: Joselo Watson on 06-15-2024 HBV surface Ag IA Ql Hepatitis B virus s urface Ag [Presence] in Serum or Plasma by Immunoassay Negative [facility] Triglyceride [Mass/volume] i n Serum or PlasmaOrdered By: Ana Mello on 06-15-2024 Triglyceride [Mass/Vol] Triglyceride [Ma ss/volume] in Serum or Plasma High 35-149 [facility] Comment on above: TRIG ATP III CLASSIF ICATIONTRIG less than 150 mg/dL NormalTRIG 150-199 mg/dL Borderline highTRIG 200-500 mg/dL High TRIG greater than 500 mg/dL Very highStandard traceable to the Center for Disease Conrtrol and Prevention (CDC) test method. Triglycerideson 06-15-2024 Triglyceride [Mass/Vol] 160 mg/dL High 35-149 [facility] Comment on above: Result Comment: TRIG ATP III CLASSIFICATION TRIG less than 150 mg/dL Normal TRIG 150-199 mg/dL Borderline high TRIG 200-500 mg/dL High TRIG greater than 500 mg/dL Very high Standard traceable to the Center for Disease Conrtrol and Prevention (CDC) test method. PERFORMED BY: [place] [address] PATHOLOGIST ELECTRIC FREIGHT CAR OPERATOR MIKY TOMAS M.D. Performed By: #### T MEET, [facility] #### [address] Vancomycin [Mass/volume] in Serum or Plasma --troughOrdered By: Thang Ruth on 06-15-2024 Vancomycin trough [Mass/Vol] Serum or plasma trough vancomycin level 10.0-20.0 [facility] Comment on above: Last dose: - Vancomycin,Troughon 06-15-19 25 Vancomycin,Trough 16.2 ug/mL Normal 10.0-20.0 [facility] Comment on above: Result Comment: Last dose: - PERFORMED BY: [place] [address] PATHOLOGIST ELECT[employer] F[employer]IGHT [employer] OPERATOR MIKY TOMAS M.D. Performed By: #### P P, CBC #### [address] X-ray reportOrdered By: Giancarlo Hunt on 06-15-2024 Study report [facility] Main [place] [id number] XRay Report Signed Patient: Lyric Juarez MR#: [id number] : 1945 Acct:[id number] Age/Sex: 78 / F ADM Date: 5 Loc: Room: [address] [place] [address] Type: ADM IN Attending Dr: Jaron Hicks MD Copies to: Ana Mello APRN, ACNP-BC Marwan Wassouf, MD~ Ordering Provider: Ana Mello APRN, ACNP-BC Date of Service: 06/15/24 XR/XR chest 1V portable: respiratory failure XR chest 1V portable 06/14/2024 3:46 PM SIGNS AND SYMPTOMS: Respiratory failure PROTOCOL: Frontal radiographs of the chest COMPARISON: 06/14/2024 FINDINGS: The trachea is midline. The ET tube, enteric tube, and right IJ line are in satisfactory position. There is mild cardiomegaly. There is a pleural effusionat the left lung base with bibasilar airspace opacity similar to the prior exam. Atherosclerotic aortic arch. The bony thorax is intact. Degenerative changes in the shoulders and thoracic spine. XR/XR chest 1V portable IMPRESSION: Unchanged chest. Impression dictated by: Giancarlo Hunt M.D.06/15/2024 8:31 AM Dictation Location: [facility]- Transcribed By: [facility] 06/15/24830 Dictated By: Giancarlo Hunt II, MD 06/15/24828 Signed By: 06/15/24830 [facility] Work Phone: XR chest 1V portableon 06-15 XR chest 1V portable [facility] Main [address] [address] XRay Report Signed Patient: Lyric Juarez MR#: [id number] : 1945 Acct:[id number] Age/Sex: 78 / F ADM Date: 06/11/24 Loc: Room: [address] [place] [address] Type: ADM IN Attending Dr: Jaron Hicks MD Copies to: Ana Mello APRN [facility] Jaron Hicks MD Ordering Provider: Ana Mello APRN, ACNPPHILLIP Date of Service: 06/15/24 XR/XR chest 1V portable: respiratory failure XR chest 1V portable 06/14/2024 3:46 PM SIGNS AND SYMPTOMS: Respiratory failure PROTOCOL: Frontal radiographs of the chest COMPARISON: 06/14/2024 FINDINGS: The trachea is midline. The ET tube, enteric tube, and right IJ line are in satisfactory position. There is mild cardiomegaly. There is a pleural effusion at the left lung base with bibasilar airspace opacity similar to the prior exam. Atherosclerotic aortic arch. The bony thorax is intact. Degenerative changes in the shoulders and thoracic spine. XR/XR chest 1V portable IMPRESSION: Unchanged chest. Impression dictated by: Giancarlo Hunt M.D.06/15/2024 8:31 AM Dictation Location: [place] [address] Transcribed By: [facility] 06/15/24830 Dictated By: Giancarlo Hunt II, MD 06/15/2429 Signed By: 06/15/24 08 Normal [facility] Arterial Blood [place] 025 ABG Base Excess -3.8 mmol/L Low -3.0-3.0 [facility] Comment on above: Performed By: #### P P, CBC #### [facility] [address] [place] [address] [place] ABG Frac Inspired O2 40 % Normal [facility] Comment on above: Performed By: #### P P, CBC #### [facility] [address] [place] [address] [place] ABG Oxygen Content 7.0 mmol/L Normal 6.6-9.7 [facility] Comment on above: Performed By: #### P P, CBC #### [address] ABG Oxygen Saturation 97.6 % Normal 95.0-100.0 [facility] Comment on above: Performed By: #### P P, CBC #### [address] ABG PCO2 28.2 mm[Hg] Off scale low 35.0-45.0 [facility] Comment on above: Performed By: #### P P, CBC #### [address] ABG PEEP 5 cmH20 Normal [facility] Comment on above: Performed By: #### P P, CBC #### [address] ABG PH 7.45 Normal 7.35-7.45 [facility] Comment on above: Performed By: #### P P, CBC #### [address] ABG PO2 99.1 mm[Hg] Normal 80.0-100.0 [facility] Comment on above: Performed By: #### P P, CBC #### [address] ABG TV 400 mL Normal [facility] Comment on above: Performed By: #### P P, CBC #### [address] CO2 [Moles/Vol] 19.9 mmol/L Low 23.0-27.0 [facility] Comment on above: Performed By: #### P P, CBC #### [address] HCO3 (Bld) [Moles/Vol] 19.1 mmol/L Low 23.0-29.0 [facility] Comment on above: Performed By: #### P P, CBC #### [address] Respiratory Critical Normal [facility] Comment on above: Result Comment: Crit ical Value called on: 06/14/2024 at 18:19 PERFORMED BY: [place] [address] PATHOLOGIST ELECTRIC F[employer]IGHT CAR OPERATOR MIKY TOMAS M.D. Performed By: #### P P, CBC #### [address] Set Respiratory Rate 12 Normal [facility] Comment on above: Performed By: #### P P, CBC #### [address] VBG Draw Site Left Brachial Normal [facility] Comment on above: Performed By: #### P P, CBC #### [address] Ventilator Mode AC Normal [facility] Comment on above: Performed By: #### P P, CBC #### [address] Coagulation Profileon 2024 aPTT Coag (Bld) [Time] 39.5 s High 25.1-36.5 [facility] Comment on above: Result Comment: A he matocrit value greater than 55% may lead to inaccurate results in coagulation testing. Patients having hematocrit values >55% require a special collection tube for coagulation studies. Please contact the laboratory at [phone] for redraw instructions. PERFORMED BY: [place] [address] PATHOLOGIST ELECTRIC FREIGHT CAR OPERATOR MIKY TOMAS M.D. Performed By: #### U NA #### [address] INR Coag (PPP) [Relative time] 5.1 {INR} Off scale high [facility] Comment on above: Result Comment: Crit ical value result called at 0625 on 06/14/24 INR Therapeutic Range A) Pre- and Peroperative OAT started two weeks before surgery. NOT HIP SURGERY: 1.5 - 2.5 HIP SURGERY: 2 - 3 B) Primary and secondary prevention of venous THROMBOSIS: 2 - 3 C) Active venous thrombosis, pulmonary embolism and prevention of recurrent venous thrombosis: 2 - 3 D) Prevention of arterial thromboembolism including patients with mechanical heart valves: 3 - 4.5 Performed By: #### U NA #### [address] PT Coag (PPP) [Time] 55.8 s High 9.0-12.9 [facility] Comment on above: Result Comment: A matocrit value greater than 55% may lead to inaccurate results in coagulation testing. Patients having hematocrit values >55% require a special collection tube for coagulation studies. Please contact the laboratory at [phone] for redraw instructions. Performed By: #### U NA #### [address] Complete Blood Count Auto Di ffon 06-14-2024 Basophils (Bld) [#/Vol] 0.0 10*3/uL Normal 0.0-0.2 [facility] Comment on above: Result Comment: PERF ORMED BY: [address] [place] [address] PATHOLOGIST ELECT[employer]IC F[employer]IGHT CAR OPERATOR MIKY TOMAS M.D. Performed By: #### G LULS #### Point of Care testing , Basophils/100 WBC (Bld) 0.2 % Normal . [facility] Comment on above: Performed By: #### G LULS #### Point of Care testing , Eosinophils (Bld) [#/Vol] 0.0 10*3/uL Normal 0.0-0.45 [facility] Comment on above: Performed By: #### G LULS #### Point of Care testing , Eosinophils/100 WBC (Bld) 0.0 % Normal . [facility] Comment on above: Performed By: #### G LULS #### Point of Care testing , Erythrocyte distribution width (RBC) [Ratio] 13.9 % Normal 11.9-15.3 [facility] Comment on above: Performed By: #### G LULS #### Point of Care testing , Hematocrit (Bld) [Volume fraction] 35.8 % Normal 34.0-46.4 [facility] Comment on above: Performed By: #### G LULS #### Point of Care testing , Hemoglobin (Bld) [Mass/Vol] 12.5 g/dL Normal 11.8-15.4 [facility] Comment on above: Performed By: #### G LULS #### Point of Care testing , Lymphocytes (Bld) [#/Vol] 0.5 10*3/uL Low 1.00-4.8 [facility] Comment on above: Performed By: #### G LULS #### Point of Care testing , Lymphocytes/100 WBC (Bld) 6.4 % Normal . [facility] Comment on above: Performed By: #### G LULS #### Point of Care testing , MCH (RBC) [Entitic mass] 30.9 pg Normal 24.7-34.3 [facility] Comment on above: Performed By: #### G LULS #### Point of Care testing , MCV (RBC) [Entitic vol] 88.9 fL Normal 80-100 [facility] Comment on above: Performed By: #### G LULS #### Point of Care testing , Mean Corpuscular HGB Conc 34.8 g/dL Normal 32.0-35.0 [facility] Comment on above: Performed By: #### G LULS #### Point of Care testing , Monocytes (Bld) [#/Vol] 0.5 10*3/uL Normal 0.0-0.8 [facility] Comment on above: Performed By: #### G LULS #### Point of Care testing , Monocytes/100 WBC (Bld) 7.0 % Normal . [facility] Comment on above: Performed By: #### G LULS #### Point of Care testing , Neutrophils (Bld) [#/Vol] 6.3 10*3/uL Normal 1.8-7.7 [facility] Comment on above: Performed By: #### G LULS #### Point of Care testing , Neutrophils/100 WBC (Bld) 86.4 % Normal . [facility] Comment on above: Performed By: #### G LULS #### Point of Care testing , NRBC% 0.1 /100{WBC} Normal 0-0.5 [facility] Comment on above: Performed By: #### G RUBENSLS #### Point of Care testing , Platelet mean volume (Bld) [Entitic vol] 8.4 fL Normal 6.3-10.7 [facility] Comment on above: Performed By: #### G RUBENSLS #### Point of Care testing , Platelets (Bld) [#/Vol] 268 10*3/uL Normal 150-450 [facility] Comment on above: Performed By: #### G RUBENSLS #### Point of Care testing , RBC (Bld) [#/Vol] 4.03 10*6/uL Normal 3.60-5.00 [facility] Comment on above: Performed By: #### G RUBENSLS #### Point of Care testing , WBC (Bld) [#/Vol] 7.3 10*3/uL Normal 3.8-11.6 [facility] Comment on above: Performed By: #### G RUBENSLS #### Point of Care testing , Comprehensive Metabolic Pane maikel 06-14-2024 Albumin [Mass/Vol] 3.8 g/dL Normal 3.5-5.7 [facility] Comment on above: Performed By: #### G RUBENSLS #### Point of Care testing , Albumin/Globulin [Mass ratio] 1.7 {ratio} Normal [facility] Comment on above: Performed By: #### G RUBENSLS #### Point of Care testing , ALP [Catalytic activity/Vol] 145 U/L High 34-104 [facility] Comment on above: Performed By: #### G RUBENSLS #### Point of Care testing , ALT [Catalytic activity/Vol] 1329 U/L High 7-52 [facility] Comment on above: Performed By: #### G RUBENSLS #### Point of Care testing , Anion gap [Moles/Vol] 13.3 mmol/L Normal 6.0-15.0 [facility] Comment on above: Performed By: #### G RUBENSLS #### Point of Care testing , AST [Catalytic activity/Vol] 1460 U/L High 13-39 [facility] Comment on above: Performed By: #### G LULS #### Point of Care testing , Bilirubin [Mass/Vol] 0.9 mg/dL Normal 0.3-1.0 [facility] Comment on above: Performed By: #### G LULS #### Point of Care testing , Calcium [Mass/Vol] 8.2 mg/dL Low 8.6-10.3 [facility] Comment on above: Performed By: #### G LULS #### Point of Care testing , Chloride [Moles/Vol] 89 mmol/L Low 98-107 [facility] Comment on above: Performed By: #### G LULS #### Point of Care testing , CO2 [Moles/Vol] 24.0 mmol/L Normal 21.0-31.0 [facility] Comment on above: Performed By: #### G LULS #### Point of Care testing , Creatinine [Mass/Vol] 1.26 mg/dL High 0.60-1.20 [facility] Comment on above: Performed By: #### G LULS #### Point of Care testing , Creatinine Clr Calc Pharmacy 38.50 Normal [facility] Comment on above: Result Comment: PERF ORMED BY: [facility] [address] [facility] [place] [place] [address] PATHOLOGIST ELECT[employer] CAR OPERATOR MIKY TOMAS M.D. Performed By: #### G LULS #### Point of Care testing , Estimated GFR 43.698 mL/Min Normal [facility] Comment on above: Performed By: #### G LULS #### Point of Care testing , Globulin (S) [Mass/Vol] 2.3 g/dL Normal [facility] Comment on above: Performed By: #### G LULS #### Point of Care testing , Glucose [Mass/Vol] 216 mg/dL High 70-100 [facility] Comment on above: Result Comment: [place] Glucose Reference Range is dependent on time and content of last meal. Glucose of more than 200 mg/dL in a nonstressed, ambulatory subject supports the diagnosis of Diabetes Mellitus. ADA recommended reference range Performed By: #### G LULS #### Point of Care testing , Potassium [Moles/Vol] 3.3 mmol/L Low 3.5-5.1 [facility] Comment on above: Performed By: #### G LULS #### Point of Care testing , Protein [Mass/Vol] 6.1 g/dL Low 6.4-8.9 [facility] Comment on above: Performed By: #### G LULS #### Point of Care testing , Sodium [Moles/Vol] 123 mmol/L Off scale low 136-145 [facility] Comment on above: Result Comment: Crit ical Result Called to and read back by: NOT FIRST CRITICAL at: 06/14/2024 05:59:59 by:TIM Performed By: #### G LULS #### Point of Care testing , Urea nitrogen [Mass/Vol] 27 mg/dL High 7-25 [facility] Comment on above: Performed By: #### G LULS #### Point of Care testing , Creatinine [Mass/volume] in UrineOrdered By: Reilly Chanel on 06-14-2024 Creatinine (U) [Mass/Vol] Creatinine [Mass/volume] in Urine [facility] Comment on above: No reference range e stablished Creatinine, Urine (Random)on 06-14-2024 Creatinine, Urine (Random) 68.00 mg/dL Normal [facility] Comment on above: Result Comment: No r eference range established PERFORMED BY: [address] [place] [address] PATHOLOGIST ELECT[employer] F[employer]IGHT CAR OPERATOR MIKY TOMAS M.D. Performed By: #### G LULS #### Point of Care testing , Eosinophil,Urineon 5 Eosinophil,Urine 0 % Normal 0-1 [facility] Comment on above: Result Comment: PERF ORMED BY: [facility] [address] [place] [address] PATHOLOGIST ELECT[employer] F[employer]IGHT CAR OPERATOR MIKY TOMAS M.D. Performed By: #### G LULS #### Point of Care testing , Eosinophils detection in uri ne sediment by Rich stainOrdered By: Reilly Chanel on 06-14-2024 Eosinophils Rich stain Ql (Urine sed) Eosinophils detection in urine sediment by Rich stain 0-1 [facility] Glucose Poct Glucometerson 0 06-14-2024 Glucose [Mass/Vol] 218 mg/dL Normal [facility] Comment on above: Result Comment: [facility] Glucose Reference Range is dependent on time and content of last meal. Glucose of more than 200 mg/dL in a nonstressed, ambulatory subject supports the diagnosis of Diabetes Mellitus. PERFORMED BY: [address] [address] PATHOLOGIST ELECTRIC F[employer]IGHT CAR OPERATOR MIKY TOMAS M.D. Performed By: #### G LULS #### Point of Care testing , Glucose [Mass/Vol] 218 mg/dL Normal [facility] Physician Group Comment on above: Result Comment: [facility] Glucose Reference Range is dependent on time and content of last meal. Glucose of more than 200 mg/dL in a nonstressed, ambulatory subject supports the diagnosis of Diabetes Mellitus. PERFORMED BY: [address] [address] PATHOLOGIST ELECTR[employer]REIGHT CAR OPERATOR MIKY TOMAS M.D. Performed By: #### G LULS #### Point of Care testing , Glucose [Mass/Vol] 253 mg/dL Normal [facility] Comment on above: Result Comment: [facility] Glucose Reference Range is dependent on time and content of last meal. Glucose of more than 200 mg/dL in a nonstressed, ambulatory subject supports the diagnosis of Diabetes Mellitus. PERFORMED BY: [address] [place] [address] PATHOLOGIST ELECTRIC FREIGHT CAR OPERATOR MIKY TOMAS M.D. Performed By: #### G LULS #### Point of Care testing , Prothrombin Time INRon 06-14 INR Coag (PPP) [Relative time] 2.6 {INR} Normal [facility] Comment on above: Result Comment: INR Therapeutic Range A) Pre- and Peroperative OAT started two weeks before surgery. NOT HIP SURGERY: 1.5 - 2.5 HIP SURGERY: 2 - 3 B) Primary and secondary prevention of venous THROMBOSIS: 2 - 3 C) Active venous thrombosis, pulmonary embolism and prevention of recurrent venous thrombosis: 2 - 3 D) Prevention of arterial thromboembolism including patients with mechanical heart valves: 3 - 4.5 PERFORMED BY: [place] [address] PATHOLOGIST ELECTRIC F[employer]IGHT CAR OPERATOR MIKY TOMAS M.D. Performed By: #### G LULS #### Point of Care testing , PT Coag (PPP) [Time] 28.5 s Significant change up 9.0-12.9 [facility] Comment on above: Result Comment: A he matocrit value greater than 55% may lead to inaccurate results in coagulation testing. Patients having hematocrit values >55% require a special collection tube for coagulation studies. Please contact the laboratory at [phone] for redraw instructions. Performed By: #### G LULS #### Point of Care testing , Sodium [Moles/volume] in Uri neOrdered By: Reilly Chanel on 06-14-2024 Sodium (U) [Moles/Vol] Sodium [Moles/vol ume] in Urine [facility] Comment on above: No reference range e stablished Sodium, Urineon 06-14-2024 Sodium (U) [Moles/Vol] 45.0 mmol/L Normal [facility] Comment on above: Result Comment: No r eference range established Performed By: #### G LULS #### Point of Care testing , US renal BIon 06-14-2024 US renal BI [facility] Main [address] [address] Ultrasound Report Signed Patient: Lyric Juarez MR#: [id number] : 1945 Acct:[id number] Age/Sex: 78 / F ADM Date: 06/11/24 Loc: Room: [address] [place] [address] Type: ADM IN Attending Dr: Jaron Hicks MD Ordering Provider: Reilly Chanel MD Date of Service: 06/14/24 US/US renal BI: acute kidney injury Copies to: MD Jaron Sutton MD BILATERAL RENAL AND BLADDER ULTRASOUND CLINICAL HISTORY: Acute kidney injury. COMPARISON: None FINDINGS: Estimation of renal size is approximately 9.62 cm on the right and 10.25 cm on the left. No contour deforming mass, shadowing stone or hydronephrosis. Small cyst left kidney. The urinary bladder is partially distended with a volume of 956.32 ml. No shadowing stone or focal lesion. US/US renal BI IMPRESSION: No acute findings. Impression dictated by: Stevie Hernandez Jr., D.OJosr06/14/2024 3:15 PM Dictation Location: [place] [address] Tech: Milka Shelton Transcribed By: JC 06/14/241514 Dictated By: Stevie Hernandez Jr, DO 06/14/241514 Signed By: 06/14/241514 Normal [facility] Vancomycin [Mass/volume] in Serum or Plasma --peakOrdered By: Thang Ruth on 06-14-2024 Vancomycin peak [Mass/Vol] Vancomycin [Mass/volume] in Serum or Plasma --peak 20.0-40.0 [facility] Comment on above: Last dose: - Vancomycin,Peakon 06-14-2024 Vancomycin,Peak 25.0 ug/mL Normal 20.0-40.0 [facility] Comment on above: Order Comment: Comme nt ?DRAW 1 HOUR AFTER INFUSION COMPLETES Date of last dose?: [id number] Time of last dose?: 629 Result Comment: Last dose: - PERFORMED BY: [place] [address] PATHOLOGIST ELECTRIC F[employer]IGHT CAR OPERATOR MIKY TOMAS M.D. Performed By: #### P P, CBC #### [address] X-ray reportOrdered By: Liam Bosch on 06-14-2024 Study report [facility] [place] [address] [place] [address] XRay Report Signed Patient: Lyric Juarez MR#: [id number] : 1945 Acct:[id number] Age/Sex: 78 / F ADM Date: 5 Loc: 4C Room: [address] [place] [address] Type: ADM IN Attending Dr: Jaron Hicks MD Copies to: MD Jaron Sutton MD~ Ordering Provider: Reilly Chanel MD Date of Service: 06/14/24 XR/XR abdomen 1V: s/p orogastric tube placement ([id number]) XR/XR chest 1V portable: s/p intubation Plain film chest Single view HISTORY: ET tube placement COMPARISON: 06/14/2024 FINDINGS: SUPPORT DEVICES: Central line unchanged. ET tube tip overlies trachea 3 cm superior to the eduin. POSTSURGICAL CHANGES: None HEART: Similar cardiomegaly PULMONARY VIKI: Condylar prominence MEDIASTINUM: Unremarkable LUNGS AND PLEURA: Similar bilateral pleural and parenchymal changes changes aregreater on the left.. No pneumothorax. BONY STRUCTURES: Intact ADDITIONAL FINDINGS None XR/XR chest 1V portable IMPRESSION: Adequate position of endotracheal tube. Continued basilar pleural-parenchymal changes. Single view of Abdomen for NG tube placement The tip of the NG tube is in the Mid stomach. IMPRESSION: Adequate position of NG tube Impression dictated by: Leo Bosch M.D.06/14/2024 5:42 PM Dictation Location: [place] [address] Transcribed By: [facility] 06/14/241741 Dictated By: Leo Bosch DO 06/14/241739 Signed By: 06/14/24 174 [facility] Study report [facility] [place] [address] XRay Report Signed Patient: Lyric Juarez MR#: [id number] : 1945 Acct:[id number] Age/Sex: 78 / F ADM Date: 5 Loc: 4C Room: [address] [place] [address] Type: ADM IN Attending Dr: Jaron Hicks MD Copies to: Frandy Cabrera MD, [facility] Jaron Hicks MD~ Ordering Provider: Frandy Cabrera MD, [facility] Date of Service: 06/14/24 XR/XR chest 1V portable: chf Plain film chest Single view HISTORY: CHF. COMPARISON: 06/12/2024 FINDINGS: SUPPORT DEVICES: Central line unchanged POSTSURGICAL CHANGES: None HEART: Within normal limits PULMONARY VIKI: Hilar congestion MEDIASTINUM: Unremarkable LUNGS AND PLEURA: Minor basilar pleural-parenchymal changes redemonstrated. Nopneumothorax. BONY STRUCTURES: Intact ADDITIONAL FINDINGS None XR/XR chest 1V portable IMPRESSION: Findings consistent with failure. Impression dictated by: Leo Bosch M.D.06/14/2024 4:27 PM Dictation Location: [facility] Transcribed By: [facility] 06/14/241626 Dictated By: Leo Bosch DO 06/14/241625 Signed By: 06/14/241626 [facility] XR abdomen 1Von 06-14-2024 XR abdomen 1V [facility] [place] [address] XRay Report Signed Patient: Lyric Juarez MR#: [id number] : 1945 Acct:[id number] Age/Sex: 78 / F ADM Date: 06/11/24 Loc: Room: [address] [place] [address] Type: ADM IN Attending Dr: Jaron Hicks MD Copies to: MD Jaron Sutton MD Ordering Provider: Reilly Chanel MD Date of Service: 06/14/24 XR/XR abdomen 1V: s/p orogastric tube placement ([id number]) XR/XR chest 1V portable: s/p intubation Plain film chest Single view HISTORY: ET tube placement COMPARISON: 06/14/2024 FINDINGS: SUPPORT DEVICES: Central line unchanged. ET tube tip overlies trachea 3 cm superior to the eduin. POSTSURGICAL CHANGES: None HEART: Similar cardiomegaly PULMONARY VIKI: Condylar prominence MEDIASTINUM: Unremarkable LUNGS AND PLEURA: Similar bilateral pleural and parenchymal changes changes are greater on the left.. No pneumothorax. BONY STRUCTURES: Intact ADDITIONAL FINDINGS None XR/XR chest 1V portable IMPRESSION: Adequate position of endotracheal tube. Continued basilar pleural-parenchymal changes. Single view of Abdomen for NG tube placement The tip of the NG tube is in the Mid stomach. IMPRESSION: Adequate position of NG tube Impression dictated by: Leo Bosch M.D.06/14/2024 5:42 PM Dictation Location: [facility] Transcribed By: JC 06/14/24 174 Dictated By: Leo Bosch DO 06/14/24 174 Signed By: 06/14/24 174 Normal [facility] XR chest 1V portableon 06-14 XR chest 1V portable [facility] Main [place] [address] [place] [address] XRay Report Signed Patient: Lyric Juarez MR#: [id number] : 1945 Acct:[id number] Age/Sex: 78 / F ADM Date: 06/11/24 Loc: Room: [address] [place] [address] Type: ADM IN Attending Dr: Jaron Hicks MD Copies to: Frandy Cabrera MD, [facility] Jaron Hicks MD Ordering Provider: Frandy Cabrera MD, [facility] Date of Service: 06/14/24 XR/XR chest 1V portable: chf Plain film chest Single view HISTORY: CHF. COMPARISON: 06/12/2024 FINDINGS: SUPPORT DEVICES: Central line unchanged POSTSURGICAL CHANGES: None HEART: Within normal limits PULMONARY VIKI: Hilar congestion MEDIASTINUM: Unremarkable LUNGS AND PLEURA: Minor basilar pleural-parenchymal changes redemonstrated. No pneumothorax. BONY STRUCTURES: Intact ADDITIONAL FINDINGS None XR/XR chest 1V portable IMPRESSION: Findings consistent with failure. Impression dictated by: Leo Bosch M.D.06/14/2024 4:27 PM Dictation Location: [facility] Transcribed By: JC 06/14/24 162 Dictated By: Leo Bosch DO 06/14/24 1626 Signed By: 06/14/24 162 Normal [facility] ABO/Rh Retypeon 06-13-2024 ABO/RH Recheck Result Positive Normal [facility] Comment on above: Result Comment: PERF ORMED BY: [place] [address] PATHOLOGIST ELECTRIC F[employer]IGHT CAR OPERATOR MIKY TOMAS M.D. Anti-Xa UF Heparinon 025 Anti-Xa UF Heparin 0.55 [IU]/mL Normal 0.30-0.70 [facility] Comment on above: Result Comment: Use the aPTT protocol when triglycerides are > 800 mg/dL, total bilirubin is > 20 mg/dL and/or patient has received a DOAC, Fondaparinux or LMWH within 72 hours AND baseline anti-Xa level is > 0.7 units/mL PERFORMED BY: [place] [address] PATHOLOGIST ELECTRIC F[employer]IGHT CAR OPERATOR MIKY TOMAS M.D. Performed By: #### U NA #### [address] Basic Metabolic Panelon Anion gap [Moles/Vol] 13.4 mmol/L Normal 6.0-15.0 e [facility] Comment on above: Performed By: #### U NA #### [address] Calcium [Mass/Vol] 8.2 mg/dL Low 8.6-10.3 [facility] Comment on above: Performed By: #### U NA #### [place] [address] [place] Chloride [Moles/Vol] 93 mmol/L Low 98-107 [facility] Comment on above: Performed By: #### U NA #### [place] [address] [place] CO2 [Moles/Vol] 21.0 mmol/L Normal 21.0-31.0 [facility] Comment on above: Performed By: #### U NA #### [address] Creatinine [Mass/Vol] 1.11 mg/dL Normal 0.60-1.20 [facility] Comment on above: Performed By: #### U NA #### [address] Creatinine Clr Calc Pharmacy 44.44 Normal [facility] Comment on above: Performed By: #### U NA #### [address] Estimated GFR 50.876 mL/Min Normal [facility] Comment on above: Performed By: #### U NA #### [address] Glucose [Mass/Vol] 148 mg/dL High 70-100 [facility] Comment on above: Result Comment: [facility] Glucose Reference Range is dependent on time and content of last meal. Glucose of more than 200 mg/dL in a nonstressed, ambulatory subject supports the diagnosis of Diabetes Mellitus. ADA recommended reference range Performed By: #### U NA #### [address] Potassium [Moles/Vol] 3.4 mmol/L Low 3.5-5.1 [facility] Comment on above: Performed By: #### U NA #### [address] Sodium [Moles/Vol] 124 mmol/L Off scale low 136-145 [facility] Comment on above: Result Comment: Crit ical Result Called to and read back by: NOT FIRST at: 06/13/2024 06:14:09 by:[id number] Performed By: #### U NA #### [address] Urea nitrogen [Mass/Vol] 20 mg/dL Normal 7-25 [facility] Comment on above: Performed By: #### U NA #### [address] Complete Blood Count Auto Di ffon 06-13-2024 Basophils (Bld) [#/Vol] 0.0 10*3/uL Normal 0.0-0.2 [facility] Comment on above: Result Comment: PERF ORMED BY: [place] [address] PATHOLOGIST ELECT[employer]IC F[employer]IGHT CAR OPERATOR MIKY TOMAS M.D. Performed By: #### P P, CBC #### [address] Basophils/100 WBC (Bld) 0.5 % Normal . T chrissy [facility] Comment on above: Performed By: #### P P, CBC #### [address] Eosinophils (Bld) [#/Vol] 0.0 10*3/uL Normal 0.0-0.45 [facility] Comment on above: Performed By: #### P P, CBC #### [address] Eosinophils/100 WBC (Bld) 0.1 % Normal . [facility] Comment on above: Performed By: #### P P, CBC #### [address] Erythrocyte distribution width (RBC) [Ratio] 14.3 % Normal 11.9-15.3 [facility] Comment on above: Performed By: #### P P, CBC #### [address] Hematocrit (Bld) [Volume fraction] 36.5 % Normal 34.0-46.4 [facility] Comment on above: Performed By: #### P P, CBC #### [address] Hemoglobin (Bld) [Mass/Vol] 12.5 g/dL Normal 11.8-15.4 [facility] Comment on above: Performed By: #### P P, CBC #### [address] Lymphocytes (Bld) [#/Vol] 1.0 10*3/uL Normal 1.00-4.8 [facility] Comment on above: Performed By: #### P P, CBC #### [address] Lymphocytes/100 WBC (Bld) 10.1 % Normal . [facility] Comment on above: Performed By: #### P P, CBC #### [address] MCH (RBC) [Entitic mass] 30.7 pg Normal 24.7-34.3 [facility] Comment on above: Performed By: #### P P, CBC #### [address] MCV (RBC) [Entitic vol] 89.7 fL Normal 80-100 T [facility] Comment on above: Performed By: #### P P, CBC #### [address] Mean Corpuscular HGB Conc 34.3 g/dL Normal 32.0-35.0 [facility] Comment on above: Performed By: #### P P, CBC #### [address] Monocytes (Bld) [#/Vol] 1.0 10*3/uL High 0.0-0.8 [facility] Comment on above: Performed By: #### P P, CBC #### [address] Monocytes/100 WBC (Bld) 9.9 % Normal . [facility] Comment on above: Performed By: #### P P, CBC #### [address] Neutrophils (Bld) [#/Vol] 7.8 10*3/uL High 1.8-7.7 [facility] Comment on above: Performed By: #### P P, CBC #### [address] Neutrophils/100 WBC (Bld) 79.4 % Normal . [facility] Comment on above: Performed By: #### P P, CBC #### [address] NRBC% 0.1 /100{WBC} Normal 0-0.5 [facility] Comment on above: Performed By: #### P P, CBC #### [address] Platelet mean volume (Bld) [Entitic vol] 8.0 fL Normal 6.3-10.7 [facility] Comment on above: Performed By: #### P P, CBC #### [address] Platelets (Bld) [#/Vol] 257 10*3/uL Normal 150-450 [facility] Comment on above: Performed By: #### P P, CBC #### [address] RBC (Bld) [#/Vol] 4.07 10*6/uL Normal 3.60-5.00 [facility] Comment on above: Performed By: #### P P, CBC #### [address] WBC (Bld) [#/Vol] 9.8 10*3/uL Normal 3.8-11.6 [facility] Comment on above: Performed By: #### P P, CBC #### [address] Fresh Frozen Plasmaon 2024 Fresh Frozen Plasma TRANSFUSED 06/15/24 0745 Normal [facility] Glucose Poct Glucometerson 0 06-13-2024 Glucose [Mass/Vol] 197 mg/dL Normal [facility] Comment on above: Result Comment: [facility] Glucose Reference Range is dependent on time and content of last meal. Glucose of more than 200 mg/dL in a nonstressed, ambulatory subject supports the diagnosis of Diabetes Mellitus. PERFORMED BY: [place] [address] PATHOLOGIST ELECTRIC FREIGHT CAR OPERATOR MIKY TOMAS M.D. Performed By: #### G LULS #### Point of Care testing , Glucose [Mass/Vol] 207 mg/dL Normal [facility] Comment on above: Result Comment: [facility] Glucose Reference Range is dependent on time and content of last meal. Glucose of more than 200 mg/dL in a nonstressed, ambulatory subject supports the diagnosis of Diabetes Mellitus. PERFORMED BY: [address] [place] [address] PATHOLOGIST ELECTRIC FREIGHT CAR OPERATOR MIKY TOMAS M.D. Performed By: #### U NA #### [address] Heparin anti-Xa unfractionat edOrdered By: Thang Ruth on 06-13-2024 Heparin unfractionated Chromogenic method Qn (PPP) Heparin anti-Xa unfractionated 0.30-0.70 [facility] Comment on above: Use the aPTT protoco l when triglycerides are > 800 mg/dL,total bilirubin is > 20 mg/dL and/or patient has received aDOAC, Fondaparinux or LMWH within 72 hours AND baselineanti-Xa level is > 0.7 units/mL Magnesiumon 06-13-2024 Magnesium [Mass/Vol] 1.6 mg/dL Low 1.9-2.7 [facility] Comment on above: Result Comment: PERF ORMED BY: [place] [address] PATHOLOGIST ELECTRIC FREIGHT CAR OPERATOR MIKY TOMAS M.D. Performed By: #### U NA #### [place] [id number] [facility] Prothrombin Time INRon 06-13 INR Coag (PPP) [Relative time] 3.4 {INR} Normal [facility] Comment on above: Result Comment: INR Therapeutic Range A) Pre- and Peroperative OAT started two weeks before surgery. NOT HIP SURGERY: 1.5 - 2.5 HIP SURGERY: 2 - 3 B) Primary and secondary prevention of venous THROMBOSIS: 2 - 3 C) Active venous thrombosis, pulmonary embolism and prevention of recurrent venous thrombosis: 2 - 3 D) Prevention of arterial thromboembolism including patients with mechanical heart valves: 3 - 4.5 PERFORMED BY: [address] [place] [id number] PATHOLOGIST ELECTRIC FREIGHT CAR OPERATOR MOHAMED M EL-FAKHARANY M.D. Performed By: #### P P, CBC #### [address] PT Coag (PPP) [Time] 37.9 s High 9.0-12.9 [facility] Comment on above: Result Comment: A he matocrit value greater than 55% may lead to inaccurate results in coagulation testing. Patients having hematocrit values >55% require a special collection tube for coagulation studies. Please contact the laboratory at [phone] for redraw instructions. Performed By: #### P P, CBC #### [place] [address] [place] Type and Screenon 06-13-2024 ABO and Rh group Nom (Bld) Blood group O Rh(D) positive Normal [facility] Comment on above: Order Comment: Trans fuse now? N Number of units to transfuse now? 0 Transfuse now? Y Number of units to transfuse now? 2 Transfuse now? Y Number of units to transfuse now? 2 Transfuse now? Y Number of units to transfuse now? 2 Result Comment: PERF ORMED BY: [place] [address] PATHOLOGIST ELECTRIC F[employer]IGHT CAR OPERATOR MIKY TOMAS M.D. Anti-Xa UF Heparinon 025 Anti-Xa UF Heparin 0.56 [IU]/mL Normal 0.30-0.70 [facility] Comment on above: Result Comment: Use the aPTT protocol when triglycerides are > 800 mg/dL, total bilirubin is > 20 mg/dL and/or patient has received a DOAC, Fondaparinux or LMWH within 72 hours AND baseline anti-Xa level is > 0.7 units/mL PERFORMED BY: [place] [address] PATHOLOGIST ELECTRIC F[employer]IGHT CAR OPERATOR MIKY TOMAS M.D. Performed By: #### T RIG, CMP #### [address] Anti-Xa UF Heparin 0.46 [IU]/mL Normal 0.30-0.70 [facility] Comment on above: Result Comment: Use the aPTT protocol when triglycerides are > 800 mg/dL, total bilirubin is > 20 mg/dL and/or patient has received a DOAC, Fondaparinux or LMWH within 72 hours AND baseline anti-Xa level is > 0.7 units/mL PERFORMED BY: [place] [address] PATHOLOGIST ELECTRIC F[employer]IGHT CAR OPERATOR MIKY TOMAS M.D. Performed By: #### U NA #### [address] Anti-Xa UF Heparin <0.04 Low 0.30-0.70 [facility] Comment on above: Result Comment: Use the aPTT protocol when triglycerides are > 800 mg/dL, total bilirubin is > 20 mg/dL and/or patient has received a DOAC, Fondaparinux or LMWH within 72 hours AND baseline anti-Xa level is > 0.7 units/mL PERFORMED BY: [place] [address] PATHOLOGIST ELECTRIC F[employer]IGHT CAR OPERATOR MIKY TOMAS M.D. Performed By: #### P T #### [address] Arterial Blood Gason 025 ABG Base Excess -9.1 mmol/L Low -3.0-3.0 [facility] Comment on above: Performed By: #### P P, CBC #### [address] ABG Frac Inspired O2 28 % Normal [facility] Comment on above: Performed By: #### P P, CBC #### [address] ABG Liter Flow 2 Normal [facility] Comment on above: Performed By: #### P P, CBC #### [address] ABG Oxygen Content 7.7 mmol/L Normal 6.6-9.7 [facility] Comment on above: Performed By: #### P P, CBC #### [address] ABG Oxygen Saturation 97.5 % Normal 95.0-100.0 [facility] Comment on above: Performed By: #### P P, CBC #### [address] ABG PCO2 24.4 mm[Hg] Off scale low 35.0-45.0 [facility] Comment on above: Performed By: #### P P, CBC #### [address] ABG PH 7.38 Normal 7.35-7.45 [facility] Comment on above: Performed By: #### P P, CBC #### [address] ABG PO2 105.0 mm[Hg] High 80.0-100.0 [facility] Comment on above: Performed By: #### P P, CBC #### [address] CO2 [Moles/Vol] 15.0 mmol/L Low 23.0-27.0 [facility] Comment on above: Performed By: #### P P, CBC #### [address] HCO3 (Bld) [Moles/Vol] 14.2 mmol/L Low 23.0-29.0 T he [facility] Comment on above: Performed By: #### P P, CBC #### [address] Oxygen Device Nasal Cannula Normal [facility] Comment on above: Performed By: #### P P, CBC #### [address] VBG Draw Site Right Radial Normal [facility] Comment on above: Performed By: #### P P, CBC #### [address] Blood Cultureon 06-12-2024 Bacteria identified Cx Nom (Bld) NO GROWTH 5 DAYS PERFORMED BY: [address] [place] [address] PATHOLOGIST ELECTRIC FREIGHT CAR OPERATOR MIKY TOMAS M.D. Normal [facility] Comment on above: Performed By: #### T RIG, CMP #### [address] Bacteria identified Cx Nom (Bld) NO GROWTH 5 DAYS PERFORMED BY: [place] [address] PATHOLOGIST ELECTRIC F[employer]IGHT CAR OPERATOR MIKY TOMAS M.D. Normal [facility] Comment on above: Performed By: #### G LULS #### Point of Care testing , Comprehensive Metabolic Pane maikel 06-12-2024 Albumin [Mass/Vol] 3.7 g/dL Normal 3.5-5.7 [facility] Comment on above: Performed By: #### T RIG, CMP #### [address] Albumin/Globulin [Mass ratio] 1.5 {ratio} Normal [facility] Comment on above: Performed By: #### T RIG, CMP #### [place] [address] [place] ALP [Catalytic activity/Vol] 108 U/L High 34-104 [facility] Comment on above: Performed By: #### T RIG, CMP #### [address] ALT [Catalytic activity/Vol] 138 U/L High 7-52 [facility] Comment on above: Performed By: #### T RIG, CMP #### [place] [address] [place] Anion gap [Moles/Vol] 16.2 mmol/L High 6.0-15.0 [facility] Comment on above: Performed By: #### T RIG, CMP #### [place] [address] [place] AST [Catalytic activity/Vol] 296 U/L High 13-39 [facility] Comment on above: Performed By: #### T RIG, CMP #### [address] Bilirubin [Mass/Vol] 0.8 mg/dL Normal 0.3-1.0 [facility] Comment on above: Performed By: #### T RIG, CMP #### [address] Calcium [Mass/Vol] 7.8 mg/dL Low 8.6-10.3 [facility] Comment on above: Performed By: #### T RIG, CMP #### [address] Chloride [Moles/Vol] 96 mmol/L Low 98-107 [facility] Comment on above: Performed By: #### T RIG, CMP #### [address] CO2 [Moles/Vol] 15.6 mmol/L Low 21.0-31.0 [facility] Comment on above: Performed By: #### T RIG, CMP #### [address] Creatinine [Mass/Vol] 1.15 mg/dL Normal 0.60-1.20 [facility] Comment on above: Performed By: #### T RIG, CMP #### [address] Creatinine Clr Calc Pharmacy 42.90 Normal [facility] Comment on above: Result Comment: PERF ORMED BY: [place] [address] PATHOLOGIST [employer] OPERATOR MIKY TOMAS M.D. Performed By: #### T RIG, CMP #### [address] Estimated GFR 48.760 mL/Min Normal [facility] Comment on above: Performed By: #### T RIG, CMP #### [address] Globulin (S) [Mass/Vol] 2.4 g/dL Normal T [facility] Comment on above: Performed By: #### T RIG, CMP #### [address] Glucose [Mass/Vol] 177 mg/dL High 70-100 [facility] Comment on above: Result Comment: [place] Glucose Reference Range is dependent on time and content of last meal. Glucose of more than 200 mg/dL in a nonstressed, ambulatory subject supports the diagnosis of Diabetes Mellitus. ADA recommended reference range Performed By: #### T RIG, CMP #### [address] Potassium [Moles/Vol] 3.8 mmol/L Normal 3.5-5.1 [facility] Comment on above: Performed By: #### T RIG, CMP #### [address] Protein [Mass/Vol] 6.1 g/dL Low 6.4-8.9 [facility] Comment on above: Performed By: #### T RIG, CMP #### [address] Sodium [Moles/Vol] 124 mmol/L Off scale low 136-145 [facility] Comment on above: Result Comment: Crit ical Result Called to and read back by: NOT FIRST TIME CRITICAL at: 06/12/2024 07:08:11 by:MLG Performed By: #### T RIG, CMP #### [place] [address] [place] Urea nitrogen [Mass/Vol] 21 mg/dL Normal 7-25 [facility] Comment on above: Performed By: #### T RIG, CMP #### [place] [address] [place] Albumin [Mass/Vol] 3.8 g/dL Normal 3.5-5.7 [facility] Comment on above: Performed By: #### T RIG, CMP #### [address] Albumin/Globulin [Mass ratio] 1.6 {ratio} Normal [facility] Comment on above: Performed By: #### T RIG, CMP #### [address] ALP [Catalytic activity/Vol] 59 U/L Normal 34-104 [facility] Comment on above: Performed By: #### T RIG, CMP #### [address] ALT [Catalytic activity/Vol] 29 U/L Normal 7-52 [facility] Comment on above: Performed By: #### T RIG, CMP #### [address] Anion gap [Moles/Vol] 15.4 mmol/L High 6.0-15.0 [facility] Comment on above: Performed By: #### T RIG, CMP #### [address] AST [Catalytic activity/Vol] 76 U/L High 13-39 [facility] Comment on above: Performed By: #### T RIG, CMP #### [address] Bilirubin [Mass/Vol] 0.5 mg/dL Normal 0.3-1.0 [facility] Comment on above: Performed By: #### T RIG, CMP #### [address] Calcium [Mass/Vol] 8.1 mg/dL Low 8.6-10.3 [facility] Comment on above: Performed By: #### T RIG, CMP #### [address] Chloride [Moles/Vol] 92 mmol/L Low 98-107 [facility] Comment on above: Performed By: #### T RIG, CMP #### [address] CO2 [Moles/Vol] 19.8 mmol/L Low 21.0-31.0 [facility] Comment on above: Performed By: #### T RIG, CMP #### [address] Creatinine [Mass/Vol] 0.98 mg/dL Normal 0.60-1.20 [facility] Comment on above: Performed By: #### T RIG, CMP #### [address] Creatinine Clr Calc Pharmacy 50.34 Normal [facility] Comment on above: Result Comment: PERF ORMED BY: [place] [address] PATHOLOGIST [employer] OPERATOR MIKY TOMAS M.D. Performed By: #### T RIG, CMP #### [address] Estimated GFR 59.079 mL/Min Normal [facility] Comment on above: Performed By: #### T RIG, CMP #### [address] Globulin (S) [Mass/Vol] 2.4 g/dL Normal T [facility] Comment on above: Performed By: #### T RIG, CMP #### [address] Glucose [Mass/Vol] 164 mg/dL High 70-100 [facility] Comment on above: Result Comment: [place] Glucose Reference Range is dependent on time and content of last meal. Glucose of more than 200 mg/dL in a nonstressed, ambulatory subject supports the diagnosis of Diabetes Mellitus. ADA recommended reference range Performed By: #### T RIG, CMP #### [address] Potassium [Moles/Vol] 3.2 mmol/L Low 3.5-5.1 [facility] Comment on above: Performed By: #### T RIG, CMP #### [address] Protein [Mass/Vol] 6.2 g/dL Low 6.4-8.9 [facility] Comment on above: Performed By: #### T RIG, CMP #### [address] Sodium [Moles/Vol] 124 mmol/L Off scale low 136-145 [facility] Comment on above: Result Comment: Crit ical Result Called to and read back by: MIRTA PENALOZA at: 06/12/2024 01:33:45 by:[id number] Performed By: #### T RIG, CMP #### [address] Urea nitrogen [Mass/Vol] 20 mg/dL Normal 7-25 [facility] Comment on above: Performed By: #### T RIG, CMP #### [address] ECG 12 lead ECGon 06-12-2024 ECG 12 lead ECG [facility] [place] [address] Electrocardiograph Report Signed Patient: Lyric Juarez MR#: [id number] : 1945 Acct:[id number] Age/Sex: 78 / F ADM Date: 06/11/24 Loc: Room: [address] [place] [address] Type: ADM IN Attending Dr: Dedrick Bella DO Ordering Provider: Thang Ruth MD Date of Service: 06/12/2407/05/319 ECG/ECG 12 lead ECG: Bradycardia Copies to: Test Reason : Blood Pressure : */* mmHG Vent. Rate : 45 BPM Atrial Rate : * BPM P-R Int : * ms QRS Dur : 138 ms QT Int : 546 ms P-R-T Axes : * 266 -41 degrees QTcB Int : 472 ms Idioventricular rhythm Possible Anterolateral infarct , age undetermined T wave abnormality, consider inferior ischemia Abnormal ECG Confirmed by Twila Montoya ([id number]) on 06/13/2024 12:13:44 AM Referred By: Electronically Signed By: Twila Montoya Transcribed By: MUS Signed By Twila Montoya MD 5 0013 Normal [facility] E[facility] echo transthoracicon [facility] echo transthoracic [facility] Main [place] [id number] Echocardiogram Signed Patient: Lyric Juarez MR#: [id number] : 1945 Acct:[id number] Age/Sex: 78 / F ADM Date: 06/11/24 Loc: Room: 0W8156-6 Type: ADM IN Attending Dr: Dedrick Bella DO Ordering Provider: Dedrick Bella DO Date of Service: 06/12/2407/05/651 E[facility]/ECH echo transthoracic: elevated troponins, possible pericarditis Copies to: MD Dedrick Hi DO Height: 65 in Weight: 183 lb Performed By: TAURUS Rascon BSA: 1.9 m2 BP: 99/58 mmHg HR: 47 Reason For Study: elevated troponins, possible pericarditis History: Hyperlipidemia,Hypertensio n,DM,A. Fib. Interpretation Summary Ejection Fraction = 35-40%. The left ventricular size and thickness are normal. 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 There is left ventricular diastolic dysfunction. The right ventricle is normal size. The right ventricular systolic function is moderately reduced. The left atrium appears mildly dilated. There is mild tricuspid regurgitation. Mild aortic regurgitation. Right ventricular systolic pressure is elevated at 40-50mmHg. Right ventricular systolic pressure is consistent with moderate pulmonary hypertension. There is no comparison study available. Procedure/Quality: A two-dimensional transthoracic echocardiogram with color flow, Doppler and injection of contrast agent Definity was performed. The study was technically good in quality. Left Ventricle: The left ventricular size and thickness are normal. Ejection Fraction = 35-40%. There is left ventricular diastolic dysfunction. 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 Left Atrium: The left atrium appears mildly dilated. Right Atrium: The right atrium appears normal in size. Right Ventricle: The right ventricle is normal size. The right ventricular systolic function is moderately reduced. Aortic Valve: The aortic valve is mildly sclerotic. No hemodynamically significant valvular aortic stenosis. Mild aortic regurgitation. Mitral Valve: The mitral valve is normal in structure. No significant mitral valve stenosis. There is no mitral regurgitation noted. Tricuspid Valve: The tricuspid valve is normal in structure. There is mild tricuspid regurgitation. Right ventricular systolic pressure is elevated at 40-50mmHg. Right ventricular systolic pressure is consistent with moderate pulmonary hypertension. Pulmonic Valve: The pulmonic valve is not well visualized. No significant pulmonic regurgitation. Arteries: The aortic root is normal size. Pericardium/Pleura: No pericardial effusion seen. IVC/Hepatic Veins: Dilated IVC consistent with elevated RA pressure. Measurements with Normals IVSd: 1.1 cm (0.7-1.1 cm)LVIDd: 4.4 cm (3.7-5.4 cm) LVPWd: 1.1 cm (0.7-1.1 cm)LVIDs: 2.6 cm (2.3-3.6 cm) LA dimension: 4.4 cm (2.3-4.0 cm)Ao root diam: 3.1 cm(2.0-3.6 cm) asc Aorta Diam: 3.3 cm(2.1-3.4cm) Doppler with Normals RVSP(TR): 46.5 mmHg (18-35mmHg) LV V1 max: 65.3 cm/sec (0.7-1.7m/s)MV E max alex: 37.3 cm/sec(0.8-1.3m/s) MV A max alex: 92.5 cm/sec(0.0-0.0m/s) MV E/A: 0.40 (<1.5) MMode/2D Measurements Calculations RVDd: 3.5 cm FS: 40.9 % Ao root area: LVOT diam: 2.0 cm EDV(Teich): 7.5 cm2 LVOT area: 3.1 cm2 87.7 ml ESV(Teich): 24.6 ml EF(Teich): 71.9 % __ LVLd ap4: 7.1 cm SV(MOD-sp4): LAV(MOD-sp4): LA A2 area: 22.0 cm2 EDV(MOD-sp4): 31.1 ml 49.9 ml 86.4 ml LAV(MOD-sp2): LA A4 area: 20.5 cm2 LVLs ap4: 7.1 cm 72.3 ml LA length (vol): ESV(MOD-sp4): 6.9 cm 55.3 ml LA vol: 55.2 ml EF(MOD-sp4): LA vol index: 36.0 % 29.0 ml/m2 Doppler Measurements Calculations MV dec time: MV V2 max: E/E' lat: 4.0 MV dec slope: 0.35 sec 92.7 cm/sec E/E' med: 6.7 MV max P.0 mmHg 105.0 cm/sec2 MV V2 mean: 33.9 cm/sec MV mean P.0 mmHg MV V2 VTI: 34.5 cm MVA(VTI): 1.1 cm2 __ Ao V2 max: AI max alex: LV V1 max PG: MR max alex: 168.0 cm/sec 290.0 cm/sec 1.7 mmHg 337.0 cm/sec Ao max PG: AI max P.6 mmHg LV V1 mean PG: MR max P.4 mmHg 11.3 mmHg AI dec slope: 1.0 mmHg Ao mean PG: LV V1 mean: 6.0 mmHg 101.0 cm/sec2 39.9 cm/sec Ao V2 mean: AI P1/2t: 841.0 msec LV V1 VTI: 110.0 cm/sec 12.2 cm Ao V2 VTI: 35.3 cm SHE(I,D): 1.1 cm2 SHE(V,D): 1.2 cm2 __ TV max PG: TR max alex: 36.0 mmHg 302.0 cm/sec TR max P.5 mmHg RAP systole: 10.0 mmHg Transcribed By: VIRGIL Performed At: 06/12/24 0828 Signed By: Twila Montoya MD 06/12/24 1123 Normal [facility] Glucose Glucometer (BldC) [M ass/Vol]Ordered By: Dedrick Bella on 06-12-2024 Glucose [Mass/Vol] Capillary blood gluc ose measurement by glucometer (mass/volume) High 70-105 [facility] Glucose Poct Glucometerson 0 06-12-2024 Glucose [Mass/Vol] 133 mg/dL Normal [facility] Comment on above: Result Comment: [place] om Glucose Reference Range is dependent on time and content of last meal. Glucose of more than 200 mg/dL in a nonstressed, ambulatory subject supports the diagnosis of Diabetes Mellitus. PERFORMED BY: [place] [address] PATHOLOGIST ELECT[employer] OPERATOR MIKY TOMAS M.D. Performed By: #### G LULS #### Point of Care testing , Commemt1 Glu2: Cleaned Meter Normal [facility] Comment on above: Result Comment: PERF ORMED BY: [place] [address] PATHOLOGIST ELECT[employer] OPERATOR MIKY TOMAS M.D. Performed By: #### U NA #### [place] [address] [place] Glucose [Mass/Vol] 291 mg/dL Normal [facility] Comment on above: Result Comment: [place] om Glucose Reference Range is dependent on time and content of last meal. Glucose of more than 200 mg/dL in a nonstressed, ambulatory subject supports the diagnosis of Diabetes Mellitus. Performed By: #### U NA #### [place] [address] [place] Commemt1 Glu2: Cleaned Meter Normal [facility] Comment on above: Result Comment: PERF ORMED BY: [place] [address] PATHOLOGIST ELECT[employer] OPERATOR MIKY TOMAS M.D. Performed By: #### T RIG, CMP #### [place] [address] [place] Glucose [Mass/Vol] 262 mg/dL Normal [facility] Comment on above: Result Comment: [place] om Glucose Reference Range is dependent on time and content of last meal. Glucose of more than 200 mg/dL in a nonstressed, ambulatory subject supports the diagnosis of Diabetes Mellitus. Performed By: #### T RIG, CMP #### [place] [address] [place] Glucose [Mass/Vol] 180 mg/dL Normal [facility] Comment on above: Result Comment: [place] om Glucose Reference Range is dependent on time and content of last meal. Glucose of more than 200 mg/dL in a nonstressed, ambulatory subject supports the diagnosis of Diabetes Mellitus. PERFORMED BY: [place] [address] PATHOLOGIST ELECT[employer]IGHT [employer] OPERATOR MIKY TOMAS M.D. Performed By: #### T RIG, CMP #### [facility] [address] [place] [address] ISTAT Glucose Pocon 06-12-19 25 Glucose [Mass/Vol] 169 mg/dL High 70-105 [facility] Comment on above: Result Comment: PERF ORMED BY: [place] [address] PATHOLOGIST ELECT[employer] OPERATOR MIKY TOMAS M.D. Performed By: #### U NA #### [facility] [address] [place] [address] Laboratory - Microbiology an d Antimicrobial susceptibilityOrdered By: Thang Ruth on 06-12-2024 Bacteria identified Cx Nom (Bld) NO GROWTH 5 DAYS [facility] Bacteria identified Cx Nom (Bld) NO GROWTH 5 DAYS [facility] Lactate [Moles/volume] in Se rum or PlasmaOrdered By: Thang Ruth on 06-12-2024 Lactate [Moles/Vol] Lactate [Moles/volum e] in Serum or Plasma 0.5-1.9 [facility] Comment on above: Lactic Acid referenc e range has been updated to 0.5 1.9 mmol/L and the critical range of 2.0 or greater. Lactic Acidon 06-12-2024 Lactate [Moles/Vol] 3.4 mmol/L Off scale high 0.5-1.9 [facility] Comment on above: Result Comment: Crit ical Result : Called to and read back by: ROSA OQUENDO at: 06/12/2024 08:01:19 by:[email or web address] Lactic Acid reference range has been updated to 0.5 ? 1.9 mmol/L and the critical range of 2.0 or greater. PERFORMED BY: [place] [address] PATHOLOGIST ELECT[employer] OPERATOR MIKY TOMAS M.D. Performed By: #### T RIG, CMP #### [address] Lactic Acid Reflexon 025 Lactic Acid Reflex 1.9 mmol/L Normal 0.5-1.9 [facility] Comment on above: Result Comment: Lact ic Acid reference range has been updated to 0.5 ? 1.9 mmol/L and the critical range of 2.0 or greater. PERFORMED BY: [place] [address] PATHOLOGIST ELECT[employer] F[employer]IGHT [employer] OPERATOR MIKY TOMAS M.D. Performed By: #### G LULS #### Point of Care testing , Magnesiumon 06-12-2024 Magnesium [Mass/Vol] 1.6 mg/dL Low 1.9-2.7 [facility] Comment on above: Result Comment: PERF ORMED BY: [place] [address] PATHOLOGIST ELECT[employer] OPERATOR MIKY TOMAS M.D. Performed By: #### G LULS #### Point of Care testing , No Panel InformationOrdered By: Dedrick Bella on 06-12-2024 Venous Blood Base Excess -8.1 mmol/L Low -3.0-3.0 [facility] Venous Blood Oxygen Content 4.8 mmol/L Low 6.6-9.7 [facility] Venous Blood Oxygen Saturation 58.3 % Critically low 73.0-76.0 [facility] Venous Blood Partial Pressure CO2 35.7 mm[Hg] Low 38.0-50.0 [facility] Venous Blood Partial Pressure O2 35.4 mm[Hg] 35.0-45.0 [facility] Venous Blood pH 7.31 Low 7.32-7.43 [facility] Blood Gas Liter Flow 2 L/min [facility] Oxygen Delivery Device Nasal cannula [facility] No Panel InformationOrdered By: Thang Ruth on 06-12-2024 Urine Osmolality 583 mosm 250-900 [facility] Osmolalityon 06-12-2024 Osmolality 272 mosm Low 278-305 [facility] Comment on above: Result Comment: PERF ORMED BY: [place] [address] PATHOLOGIST ELECT[employer]IGHT [employer] OPERATOR MIYK TOMAS M.D. Performed By: #### U NA #### [place] [address] [place] Osmolality 271 mosm Low 278-305 [facility] Comment on above: Result Comment: PERF ORMED BY: [place] [address] PATHOLOGIST ELECT[employer] F[employer] OPERATOR MIKY TOMAS M.D. Performed By: #### T RIG, CMP #### [address] Osmolality measurementOrdere d By: Dedrick Bella on 06-12-2024 Osmolality (Unsp spec) [Osmolality] Osmolality measurement Low 278-305 [facility] Osmolality, Urineon 06-12-19 25 Osmolality, Urine 583 mosm Normal 250-900 [facility] Comment on above: Result Comment: PERF ORMED BY: [place] [address] PATHOLOGIST ELECT[employer]IGHT [employer] OPERATOR MIKY TOMAS M.D. Performed By: #### P P, CBC #### [address] Phosphate [Mass/volume] in S ashley or PlasmaOrdered By: Thang Ruth on 06-12-2024 Phosphate [Mass/Vol] Phosphate [Mass/vol ume] in Serum or Plasma 2.5-4.5 [facility] Phosphoruson 06-12-2024 Phosphate [Mass/Vol] 4.1 mg/dL Normal 2.5-4.5 [facility] Comment on above: Performed By: #### G LULS #### Point of Care testing , Prothrombin Time INRon 06-12 INR Coag (PPP) [Relative time] 1.9 {INR} Normal [facility] Comment on above: Result Comment: INR Therapeutic Range A) Pre- and Peroperative OAT started two weeks before surgery. NOT HIP SURGERY: 1.5 - 2.5 HIP SURGERY: 2 - 3 B) Primary and secondary prevention of venous THROMBOSIS: 2 - 3 C) Active venous thrombosis, pulmonary embolism and prevention of recurrent venous thrombosis: 2 - 3 D) Prevention of arterial thromboembolism including patients with mechanical heart valves: 3 - 4.5 Performed By: #### U NA #### [address] PT Coag (PPP) [Time] 21.2 s High 9.0-12.9 [facility] Comment on above: Result Comment: A matocrit value greater than 55% may lead to inaccurate results in coagulation testing. Patients having hematocrit values >55% require a special collection tube for coagulation studies. Please contact the laboratory at [phone] for redraw instructions. Performed By: #### U NA #### [address] Scan and CBCon 06-12-2024 Acanthocytes Slight Normal [facility] Comment on above: Performed By: #### T RIG, CMP #### [address] Basophils (Bld) [#/Vol] 0.1 10*3/uL Normal 0.0-0.2 [facility] Comment on above: Performed By: #### T RIG, CMP #### [address] Basophils/100 WBC (Bld) 0.6 % Normal . T [facility] Comment on above: Performed By: #### T RIG, CMP #### [address] Crenated RBC Moderate Normal [facility] Comment on above: Performed By: #### T RIG, CMP #### [address] Eosinophils (Bld) [#/Vol] 0.0 10*3/uL Normal 0.0-0.45 [facility] Comment on above: Performed By: #### T RIG, CMP #### [address] Eosinophils/100 WBC (Bld) 0.1 % Normal . [facility] Comment on above: Performed By: #### T RIG, CMP #### [address] Erythrocyte distribution width (RBC) [Ratio] 13.8 % Normal 11.9-15.3 [facility] Comment on above: Performed By: #### T RIG, CMP #### [address] Hematocrit (Bld) [Volume fraction] 38.9 % Normal 34.0-46.4 [facility] Comment on above: Performed By: #### T RIG, CMP #### [address] Hemoglobin (Bld) [Mass/Vol] 13.1 g/dL Normal 11.8-15.4 [facility] Comment on above: Performed By: #### T RIG, CMP #### [address] Lymphocytes (Bld) [#/Vol] 1.4 10*3/uL Normal 1.00-4.8 [facility] Comment on above: Performed By: #### T RIG, CMP #### [address] Lymphocytes/100 WBC (Bld) 13.9 % Normal . [facility] Comment on above: Performed By: #### T RIG, CMP #### [address] MCH (RBC) [Entitic mass] 31.2 pg Normal 24.7-34.3 [facility] Comment on above: Performed By: #### T RIG, CMP #### [address] MCV (RBC) [Entitic vol] 92.8 fL Normal 80-100 T chrissy [facility] Comment on above: Performed By: #### T RIG, CMP #### [address] Mean Corpuscular HGB Conc 33.6 g/dL Normal 32.0-35.0 [facility] Comment on above: Performed By: #### T RIG, CMP #### [address] Monocytes (Bld) [#/Vol] 1.2 10*3/uL High 0.0-0.8 [facility] Comment on above: Performed By: #### T RIG, CMP #### [address] Monocytes/100 WBC (Bld) 11.8 % Normal . [facility] Comment on above: Performed By: #### T RIG, CMP #### [address] Neutrophils (Bld) [#/Vol] 7.6 10*3/uL Normal 1.8-7.7 [facility] Comment on above: Performed By: #### T RIG, CMP #### [address] Neutrophils/100 WBC (Bld) 73.6 % Normal . [facility] Comment on above: Performed By: #### T RIG, CMP #### [address] NRBC% 0.1 /100{WBC} Normal 0-0.5 [facility] Comment on above: Performed By: #### T RIG, CMP #### [address] Ovalocytes Slight Normal [facility] Comment on above: Performed By: #### T RIG, CMP #### [address] Platelet Estimate Normal Normal Normal [facility] Comment on above: Performed By: #### T RIG, CMP #### [address] Platelet mean volume (Bld) [Entitic vol] 7.9 fL Normal 6.3-10.7 [facility] Comment on above: Performed By: #### T RIG, CMP #### [address] Platelet Morphology Normal Normal Normal [facility] Comment on above: Result Comment: PERF ORMED BY: [place] [address] PATHOLOGIST ELECT[employer] OPERATOR MIKY TOMAS M.D. Performed By: #### T RIG, CMP #### [address] Platelets (Bld) [#/Vol] 258 10*3/uL Normal 150-450 [facility] Comment on above: Performed By: #### T RIG, CMP #### [address] Poikilocytosis Slight Normal [facility] Comment on above: Performed By: #### T RIG, CMP #### [address] RBC (Bld) [#/Vol] 4.19 10*6/uL Normal 3.60-5.00 [facility] Comment on above: Performed By: #### T RIG, CMP #### [address] WBC (Bld) [#/Vol] 10.4 10*3/uL Normal 3.8-11.6 [facility] Comment on above: Performed By: #### T RIG, CMP #### [address] Sodium [Moles/volume] in Uri neOrdered By: Dedrick Bella on 06-12-2024 Sodium (U) [Moles/Vol] Sodium [Moles/vol ume] in Urine [facility] Comment on above: No reference range e stablished Sodium, Urine (Random)on Sodium (U) [Moles/Vol] 18 mmol/L Normal [facility] Comment on above: Result Comment: No r eference range established PERFORMED BY: [place] [address] PATHOLOGIST [employer]PER[employer] MIKY TOMAS M.D. Performed By: #### U NA #### [address] Troponin I High Sensitivityo n 06-12-2024 Troponin I High Sensitivity [id number] Off scale high 0-15 [facility] Comment on above: Result Comment: Crit ical Result : Called to and read back by: JEROME COYLE at: 06/12/2024 02:07:08 by:[id number] The Troponin units of report have been changed to meet the Chest Pain Accreditation requirement, element EC5.M1l2. Troponin units are changed from pg/ml to ng/L. Also, the decimal is removed and results are in whole numbers. PERFORMED BY: [place] [address] PATHOLOGIST [employer] OPERATOR MIKY TOMAS M.D. Performed By: #### T RIG, CMP #### [address] Troponin I.cardiac [Mass/vol ume] in Serum or Plasma by Detection limit <= 0.01 ng/Ordered By: Thang Ruth on 06-12-2024 Troponin I.cardiac DL <= 0.01 ng/mL [Mass/Vol] Troponin I.cardiac [Mass/volume] in Serum or Plasma by Detection limit <= 0.01 ng/ Critically high 0-15 [facility] Comment on above: Critical Result : Ca lled to and read back by: JEROME COYLE at: 06/12/2024 02:07:08 by:[id number] Troponin units of report have been changed to meet the Chest Pain Accreditation requirement, element EC5.M1l2. Troponin units are changed from pg/ml to ng/L. Also, the decimal is removed and results are in whole numbers. Venous Blood GasOrdered By: Dedrick Bella on 06-12-2024 CO2 [Moles/Vol] 18.5 mmol/L Low 24.0-29.0 [facility] Comment on above: Performed By: #### G LULS #### Point of Care testing , HCO3 (Bld) [Moles/Vol] 17.4 mmol/L Low 23.0-29.0 [facility] Comment on above: Performed By: #### G LULS #### Point of Care testing , Venous Blood Gason Respiratory Critical Normal [facility] Comment on above: Result Comment: Crit ical Value called on: 06/12/2024 at 17:14 PERFORMED BY: [facility] [place] [address] PATHOLOGIST [employer] OPERATOR MIKY TOMAS M.D. Performed By: #### G LULS #### Point of Care testing , VBG Base Excess -8.1 mmol/L Low -3.0-3.0 [facility] Comment on above: Performed By: #### G LULS #### Point of Care testing , VBG Draw Site Venous Normal [facility] Comment on above: Performed By: #### G LULS #### Point of Care testing , VBG Frac Inspired O2 28 % Normal [facility] Comment on above: Performed By: #### G LULS #### Point of Care testing , VBG O2 Content 4.8 mmol/L Low 6.6-9.7 [facility] Comment on above: Performed By: #### G LULS #### Point of Care testing , VBG Oxygen Saturation 58.3 % Off scale low 73.0-76.0 [facility] Comment on above: Performed By: #### G LULS #### Point of Care testing , VBG PCO2 35.7 mm[Hg] Low 38.0-50.0 [facility] Comment on above: Performed By: #### G LULS #### Point of Care testing , VBG PH Venous PH 7.31 Low 7.32-7.43 [facility] Comment on above: Performed By: #### G LULS #### Point of Care testing , VBG PO2 35.4 mm[Hg] Normal 35.0-45.0 [facility] Comment on above: Performed By: #### G LULS #### Point of Care testing , CO2 [Moles/Vol] 20.1 mmol/L Low 24.0-29.0 [facility] Comment on above: Performed By: #### G LULS #### Point of Care testing , HCO3 (Bld) [Moles/Vol] 18.9 mmol/L Low 23.0-29.0 [facility] Comment on above: Performed By: #### G LULS #### Point of Care testing , Respiratory Critical Normal [facility] Comment on above: Result Comment: Crit ical Value called on: 06/12/2024 at 14:44 PERFORMED BY: [place] [phone] PATHOLOGIST [employer] OPERATOR MIKY TOMAS M.D. Performed By: #### G LULS #### Point of Care testing , Result Comment: Crit ical Value called on: 06/12/2024 at 04:01 PERFORMED BY: [place] [phone] PATHOLOGIST [employer] OPERATOR MIKY TOMAS M.D. Performed By: #### P P, CBC #### [address] VBG Base Excess -6.9 mmol/L Low -3.0-3.0 [facility] Comment on above: Performed By: #### G LULS #### Point of Care testing , VBG Draw Site Venous Normal [facility] Comment on above: Performed By: #### G LULS #### Point of Care testing , VBG Frac Inspired O2 21 % Normal [facility] Comment on above: Performed By: #### G LULS #### Point of Care testing , VBG O2 Content 3.2 mmol/L Low 6.6-9.7 [facility] Comment on above: Performed By: #### G LULS #### Point of Care testing , VBG Oxygen Saturation 39.8 % Off scale low 73.0-76.0 [facility] Comment on above: Performed By: #### G LULS #### Point of Care testing , VBG PCO2 39.0 mm[Hg] Normal 38.0-50.0 [facility] Comment on above: Performed By: #### G LULS #### Point of Care testing , VBG PH Venous PH 7.30 Low 7.32-7.43 [facility] Comment on above: Performed By: #### G LULS #### Point of Care testing , VBG PO2 25.9 mm[Hg] Low 35.0-45.0 [facility] Comment on above: Performed By: #### G LULS #### Point of Care testing , X-ray reportOrdered By: Black Hernandez on 06-12-2024 Study report [facility] [place] [address] XRay Report Signed Patient: Lyric Juarez MR#: [id number] : 1945 Acct:[id number] Age/Sex: 78 / F ADM Date: 5 Loc: Room: [address] [place] [address] Type: ADM IN Attending Dr: Dedrick Bella DO Copies to: MD Dedrick Monzon, ~ Ordering Provider: Kris Everett MD Date of Service: 06/12/24 XR/XR chest 1V portable: central line placement SINGLE VIEW CHEST CLINICAL HISTORY: Central line placement COMPARISON: None FINDINGS: Right-sided IJ line tip in the SVC. Cardiomegaly with left lower lobe airspace disease and small left pleural effusion is present. No pneumothorax or free air. XR/XR chest 1V portable IMPRESSION: RIGHT-SIDED IJ LINE TIP IN THE SVC. NO PNEUMOTHORAX. CARDIOMEGALY WITH LEFT LOWER LOBE AIRSPACE DISEASE AND SMALL LEFT PLEURAL EFFUSION. Impression dictated by: Stevie Hernandez Jr., D.O.06/12/2024 11:08 AM Dictation Location: [facility]18 Transcribed By: JC 06/12/241107 Dictated By: Stevie Hernandez Jr, DO 06/12/24 110 Signed By: 06/12/24 110 [facility] XR chest 1V portableon 06-12 XR chest 1V portable [facility] [address] XRay Report Signed Patient: Lyric Juarez MR#: [id number] : 1945 Acct:[id number] Age/Sex: 78 / F ADM Date: 06/11/24 Loc: Room: [address] [place] [address] Type: ADM IN Attending Dr: Dedrick Bella DO Copies to: MD Dedrick Monzon DO Ordering Provider: Kris Everett MD Date of Service: 06/12/24 XR/XR chest 1V portable: central line placement SINGLE VIEW CHEST CLINICAL HISTORY: Central line placement COMPARISON: None FINDINGS: Right-sided IJ line tip in the SVC. Cardiomegaly with left lower lobe airspace disease and small left pleural effusion is present. No pneumothorax or free air. XR/XR chest 1V portable IMPRESSION: RIGHT-SIDED IJ LINE TIP IN THE SVC. NO PNEUMOTHORAX. CARDIOMEGALY WITH LEFT LOWER LOBE AIRSPACE DISEASE AND SMALL LEFT PLEURAL EFFUSION. Impression dictated by: Stevie Hernandez Jr., D.O.06/12/2024 11:08 AM Dictation Location: [facility]18 Transcribed By: JC 06/12/24 1108 Dictated By: Stevie Hernandez Jr, DO 06/12/24 1108 Signed By: 06/12/24 1108 Normal [facility] Basophils/100 WBC Manual cnt (Bld)on 06-11-2024 Basophils/100 WBC (Bld) Basophils/100 le ukocytes in Blood by Manual count Low 0.2-2.0 [facility] Eosinophils/100 WBC Manual c nt (Bld)on 06-11-2024 Eosinophils/100 WBC (Bld) Eosinophils/100 leukocytes in Blood by Manual count Low 0.9-7.0 [facility] Erythrocyte distribution wid th Auto (RBC) [Ratio]on 06-11-2024 Erythrocyte distribution width (RBC) [Ratio] Erythrocyte distribution width [Ratio] by Automated count 11.0-15.0 [facility] Estimated glomerular filtrat ion rate (GFR) non- Americanon 06-11-2024 GFR/1.73 sq M.predicted among non-blacks MDRD (S/P/Bld) [Vol rate/Area] Estimated glomerular filtration rate (GFR) non- Low >=60 mL/min/1.7 3m 2 [facility] Globulin Calc (S) [Mass/Vol] on 06-11-2024 Globulin (S) [Mass/Vol] Serum globulin m easurement by calculation (mass/volume) [facility] Hematocrit Auto (Bld) [Volum e fraction]on 06-11-2024 Hematocrit (Bld) [Volume fraction] Hematocrit [Volume Fraction] of Blood by Automated count 36.0-48.0 [facility] Hemoglobin [Mass/volume] in Bloodon 06-11-2024 Hemoglobin (Bld) [Mass/Vol] Hemoglobin [Mass/volume] in Blood 12.0-16.0 [facility] INR in Platelet poor plasma by Coagulation assayon 06-11-2024 INR Coag (PPP) [Relative time] INR in Platelet poor plasma by Coagulation assay [facility] Comment on above: DESIRED INR:2.0-3.0 CONDITIONS NOT LISTED BELOW2.5-3.5 FOR PROSTHETIC HEART VALVE REPLACEMENT2.5-3.5 RECURRENT THROMBOSIS Laboratory - Chemistry and C hemistry - challengeon 06-11-2024 Bilirubin Ql (U) Negative NEGATIVE [facility] Glucose (U) [Mass/Vol] Negative NEGATIVE [facility] Ketones Ql (U) 15 mg/dL Abnormal NEGATIVE [facility] pH (U) 5.5 [pH] 5.0-9.0 [facility] Specific gravity (U) [Rel density] 1.025 1.005-1.02 5 [facility] Urobilinogen Qn (U) 1.0 {Diana'U}/dL 0.2-1.0 [facility] CK [Catalytic activity/Vol] 318 U/L High 26-192 [facility] Lactate [Moles/Vol] 1.3 mmol/L 0.4-2.0 [facility] Albumin [Mass/Vol] 3.8 g/dL 3.4-5.0 [facility] ALP [Catalytic activity/Vol] 72 U/L 46-116 [facility] ALT [Catalytic activity/Vol] 19 U/L 14-59 [facility] AST [Catalytic activity/Vol] 25 U/L 15-37 [facility] Bilirubin [Mass/Vol] 0.8 mg/dL 0.2-1.0 [facility] Calcium [Mass/Vol] 9.0 mg/dL 8.5-10.1 [facility] Chloride [Moles/Vol] 87 mmol/L Low 98-107 [facility] CO2 [Moles/Vol] 21.0 mmol/L 21.0-32.0 [facility] Creatinine [Mass/Vol] 1.43 mg/dL High 0.55-1.02 [facility] GFR/1.73 sq M.predicted MDRD (S/P/Bld) [Vol rate/Area] 43 mL/min/{1.73_m2} Low >=60 mL/min/1.7 3m 2 [facility] Glucose [Mass/Vol] 236 mg/dL High 74-106 [facility] Magnesium [Mass/Vol] 1.1 mg/dL Low 1.8-2.4 [facility] Potassium [Moles/Vol] 4.2 mmol/L 3.5-5.1 [facility] Protein [Mass/Vol] 7.2 g/dL 6.4-8.2 [facility] Sodium [Moles/Vol] 123 mmol/L Critically low 136-145 [facility] Comment on above: RESULTS CALLED TO BOBBY SAMPSON RN @BY Mechelle Meyer [id number] Urea nitrogen [Mass/Vol] 21.0 mg/dL High 7.0-18.0 [facility] Urea nitrogen/Creatinine [Mass ratio] 14.7 mg/mg [facility] Laboratory - Hematology and Cell countson 06-11-2024 Lymphocytes/100 WBC (Bld) 4.0 % Low 20.5-60.0 [facility] Monocytes/100 WBC (Bld) 9.0 % 1.7-12.0 [facility] Laboratory - Microbiology an d Antimicrobial susceptibilityon 06-11-2024 SARS-CoV-2 (COVID-19) RNA LAURA+probe Ql (Unsp spec) Positive Abnormal NEGATIVE [facility] Comment on above: This test has not be en FDA cleared or approved, but has beenauthorized by the FDA under an Emergency Use Authorization(EUA) for use by authorized laboratories certified underIA that meet the requirements to perform moderate or highcomplexity testing. This test has been authorized only forthe detection of proteins from SARS-CoV-2, not for any otherviruses or pathogens. The emergency use of this test isauthorized for the duration of the declaration thatcircumstances exist justifying the authorization ofemergency use of in vitro diagnostic tests for detectionand/or diagnosis of Covid-19 under section 564(b)(1) of theAct, 21 U.S.C. 360bbb-3(b)(1), unless the declaration isterminated or authorization is revoked sooner. Laboratory - Specimen inform ationon 06-11-2024 Appearance (U) CLEAR CLEAR [facility] Color (U) LT. YELLOW YELLOW [facility] Laboratory - Urinalysison Hyaline casts LM Ql (Urine sed) FEW [facility] Leukocyte esterase Test strip Ql (U) MODERATE Abnormal NEGATIVE [facility] Mucus Ql (Urine sed) NONE SEEN NONE SEEN [facility] Nitrite Ql (U) Negative NEGATIVE [facility] Protein Ql (U) 100 mg/dL Abnormal NEG/TRACE [facility] Leukocytes [#/volume] correc patricio for nucleated erythrocytes in Blood by Automated counon 06-11-2024 WBC corrected for nucl RBC Auto (Bld) [#/Vol] Leukocytes [#/volume] corrected for nucleated erythrocytes in Blood by Automated coun High 4.0-11.0 [facility] MCH Auto (RBC) [Entitic mass ]on 06-11-2024 MCH (RBC) [Entitic mass] MCH [Entitic mass] by Automated count 26.7-34.0 [facility] MCHC Auto (RBC) [Mass/Vol]on 06-11-2024 MCHC (RBC) [Mass/Vol] MCHC [Mass/volume] by Automated count 29.9-35.2 [facility] MCV Auto (RBC) [Entitic vol] on 06-11-2024 MCV (RBC) [Entitic vol] MCV [Entitic vol ume] by Automated count 81.0-99.0 [facility] No Panel Informationon 06-11 Urine Bacteria SMALL #/HPF Abnormal NONE SEEN [facility] Urine [facility] Microscopic Review YES [facility] Urine Occult Blood SMALL Abnormal NEGATIVE [facility] Urine Other Casts SEEN #/LPF Abnormal NONE SEEN [facility] Urine Other Crystals None Seen #/HPF None Seen [facility] Urine RBC 2-5 #/HPF Abnormal 0-2 [facility] Urine Squamous Epithelial Cells MODERATE #/LPF Abnormal NONE/RARE [facility] Urine WBC 5-10 #/HPF Abnormal NONE SEEN [facility] Troponin I High Sensitivity 3123.3 pg/mL Critically high 4.0-51.3 [facility] Comment on above: RESULTS CALLED TO SA NIR WELDON RN @BY Mechelle Cross [id number]-OFF POINTS HAVE BEEN ESTABLISHED BASED ON THE FOURTHUNIVERSAL DEFINITION OF MYOCARDIAL INFARCTION. THE UPPERREFERENCE LIMIT (URL) OF TROPONIN, DEFINED THE 99THPERCENTILE OF cTnI DISTRIBUTION IN A REFERENCE POPULATION,HAS BEEN CONFIRMED THE DECISION THRESHOLD FOR MIDIAGNOSIS.99TH PERCENTILE = 51.4 PG/MLNOTE: HIGH-SENSITIVITY TROPONIN ASSAY IS NOT INTENDED TO BEUSED IN ISOLATION BUT SHOULD BE INTERPRETED IN CONJUNCTIONWITH OTHER DIAGNOSTIC AND CLINICAL INFORMATION. Bedside Influenza Type A Antigen Negative [facility] Comment on above: Negative for Flu A p rotein antigen. Infection due to Flu Acannot be ruled out. Flu A antigen in the sample may bebelow the detection limit of the test. Bedside Influenza Type B Antigen Negative [facility] Comment on above: Negative for Flu B p rotein antigen. Infection due to Flu Bcannot be ruled out. Flu B antigen in the sample may bebelow the detection limit of the test. RSV RNA Qual (PCR)(MISC) Not detected NOT DETECTE [facility] Absolute Basophils (Manual) 0.00 10 3/uL 0.00-0.10 [facility] Eosinophils # (Manual) 0.00 10 3/uL 0.00-0.70 [facility] Lymphocytes # (Manual) 0.46 10 3/uL Low 1.20-3.80 [facility] Monocytes # (Manual) 1.05 10 3/uL High 0.30-0.80 [facility] Segmented Neutrophils # (Manual) 10.17 10 3/uL High 1.4-6.5 [facility] Platelet mean volume Auto (B ld) [Entitic vol]on 06-11-2024 Platelet mean volume (Bld) [Entitic vol] Platelet mean volume [Entitic volume] in Blood by Automated count 9.5-13.5 [facility] Platelets Auto (Bld) [#/Vol] on 06-11-2024 Platelets (Bld) [#/Vol] Platelets [#/vol ume] in Blood by Automated count 150-450 [facility] Prothrombin time (PT)on PT Coag (PPP) [Time] Prothrombin time (PT) High 9.0- 11.6 [facility] RBC Auto (Bld) [#/Vol]on RBC (Bld) [#/Vol] Erythrocytes [#/volu me] in Blood by Automated count 4.20-5.40 [facility] Segmented neutrophils/100 WB C Manual cnt (Bld)on 06-11-2024 Segmented neutrophils/100 WBC (Bld) Manual blood segmented neutrophils/100 leukocytes High 43.0-75.0 [facility] Serum or plasma albumin/glob ulin mass ratioon 06-11-2024 Albumin/Globulin [Mass ratio] Serum or plasma albumin/globulin mass ratio [facility] Serum or plasma anion gap de terminationon 06-11-2024 Anion gap [Moles/Vol] Serum or plasma an ion gap determination [facility] Perimetry studyon 05-18-2024 [facility] Study observation (narrative) [facility] Basophils Auto (Bld) [#/Vol] on 04-25-2024 Basophils (Bld) [#/Vol] Automated basophil count 0.0-0.1 [facility] Basophils/100 WBC Auto (Bld) on 04-25-2024 Basophils/100 WBC (Bld) Automated basophil % 0. 2-2.0 [facility] Cholesterol in LDL Calc [Mas s/Vol]on 04-25-2024 Cholesterol in LDL [Mass/Vol] Cholesterol in LDL [Mass/volume] in Serum or Plasma by calculation [facility] Comment on above: <100 mg/dl [id number] 0-129 mg/dl NEAR OR ABOVE [id number] mg/dl BORDERLINE [id number] mg/dl HIGH>190 mg/dl VERY HIGH Cholesterol in VLDL Calc [Ma ss/Vol]on 04-25-2024 Cholesterol in VLDL [Mass/Vol] Cholesterol in VLDL [Mass/volume] in Serum or Plasma by calculation [facility] Eosinophils/100 WBC Auto (Bl d)on 04-25-2024 Eosinophils/100 WBC (Bld) Automated eosinophil % 0.9-7.0 [facility] Erythrocyte distribution wid th Auto (RBC) [Ratio]on 04-25-2024 Erythrocyte distribution width (RBC) [Ratio] Erythrocyte distribution width [Ratio] by Automated count 11.0-15.0 [facility] Estimated glomerular filtrat ion rate (GFR) non- Americanon 04-25-2024 GFR/1.73 sq M.predicted among non-blacks MDRD (S/P/Bld) [Vol rate/Area] Estimated glomerular filtration rate (GFR) non- Low >=60 mL/min/1.7 3m 2 [facility] Globulin Calc (S) [Mass/Vol] on 04-25-2024 Globulin (S) [Mass/Vol] Serum globulin m easurement by calculation (mass/volume) [facility] Glucose mean value [Mass/vol ume] in Blood Estimated from glycated hemoglobinon 04-25-2024 Average glucose Estimated from glycated hemoglobin (Bld) [Mass/Vol] Glucose mean value [Mass/volume] in Blood Estimated from glycated hemoglobin [facility] Hematocrit Auto (Bld) [Volum e fraction]on 04-25-2024 Hematocrit (Bld) [Volume fraction] Hematocrit [Volume Fraction] of Blood by Automated count 36.0-48.0 [facility] Hemoglobin [Mass/volume] in Bloodon 04-25-2024 Hemoglobin (Bld) [Mass/Vol] Hemoglobin [Mass/volume] in Blood 12.0-16.0 [facility] Laboratory - Chemistry and C hemistry - challengeon 04-25-2024 Albumin [Mass/Vol] 4.1 g/dL 3.4-5.0 [facility] ALP [Catalytic activity/Vol] 84 U/L 46-116 [facility] ALT [Catalytic activity/Vol] 21 U/L 14-59 [facility] AST [Catalytic activity/Vol] 20 U/L 15-37 [facility] Bilirubin [Mass/Vol] 0.7 mg/dL 0.2-1.0 [facility] Calcium [Mass/Vol] 9.6 mg/dL 8.5-10.1 [facility] Chloride [Moles/Vol] 97 mmol/L Low 98-107 [facility] Cholesterol [Mass/Vol] 200 mg/dL <=200 [facility] Cholesterol in HDL [Mass/Vol] 61 mg/dL High 40-60 [facility] Comment on above: > or =60 mg/dl - LOW CARDIOVASCULAR RISK<40 mg/dl - HIGH CARDIOVASCULAR RISK CO2 [Moles/Vol] 30.0 mmol/L 21.0-32.0 [facility] Creatinine [Mass/Vol] 1.17 mg/dL High 0.55-1.02 [facility] GFR/1.73 sq M.predicted MDRD (S/P/Bld) [Vol rate/Area] 54 mL/min/{1.73_m2} Low >=60 mL/min/1.7 3m 2 [facility] Glucose [Mass/Vol] 147 mg/dL High 74-106 [facility] Potassium [Moles/Vol] 3.9 mmol/L 3.5-5.1 [facility] Protein [Mass/Vol] 7.9 g/dL 6.4-8.2 [facility] Sodium [Moles/Vol] 137 mmol/L 136-145 [facility] Triglyceride [Mass/Vol] 147 mg/dL <=150 F [facility] Urea nitrogen [Mass/Vol] 20.0 mg/dL High 7.0-18.0 [facility] Urea nitrogen/Creatinine [Mass ratio] 17.1 mg/mg [facility] Laboratory - Hematology and Cell countson 04-25-2024 HbA1c (Bld) [Mass fraction] 7.6 % High 4.5-6.2 [facility] Comment on above: ADA RECOMMENDED LIMI T 4.0 - 6.0ADA THERAPEUTIC TARGET < 7.0ACTION SUGGESTED> 7.0 Immature granulocytes/100 WBC (Bld) 0.4 % 0.0-0.5 [facility] Leukocytes [#/volume] correc patricio for nucleated erythrocytes in Blood by Automated counon 04-25-2024 WBC corrected for nucl RBC Auto (Bld) [#/Vol] Leukocytes [#/volume] corrected for nucleated erythrocytes in Blood by Automated coun 4.0-11.0 [facility] Lymphocytes Auto (Bld) [#/Vo l]on 04-25-2024 Lymphocytes (Bld) [#/Vol] Lymphocytes [#/volume] in Blood by Automated count Low 1.2-3.8 [facility] Lymphocytes/100 WBC Auto (Bl d)on 04-25-2024 Lymphocytes/100 WBC (Bld) Lymphocytes/100 leukocytes in Blood by Automated count Low 20.5-60.0 [facility] MCH Auto (RBC) [Entitic mass ]on 04-25-2024 MCH (RBC) [Entitic mass] MCH [Entitic mass] by Automated count 26.7-34.0 [facility] MCHC Auto (RBC) [Mass/Vol]on 04-25-2024 MCHC (RBC) [Mass/Vol] MCHC [Mass/volume] by Automated count 29.9-35.2 [facility] MCV Auto (RBC) [Entitic vol] on 04-25-2024 MCV (RBC) [Entitic vol] MCV [Entitic vol ume] by Automated count 81.0-99.0 [facility] Microalbumin [Mass/volume] i n Urineon 04-25-2024 Albumin DL <= 20 mg/L (U) [Mass/Vol] Microalbumin [Mass/volume] in Urine <=30.0 [facility] Monocytes Auto (Bld) [#/Vol] on 04-25-2024 Monocytes (Bld) [#/Vol] Automated blood monocyte count High 0.3-0.8 [facility] Monocytes/100 WBC Auto (Bld) on 04-25-2024 Monocytes/100 WBC (Bld) Automated monocyte % 1. 7-12.0 [facility] Neutrophils Auto (Bld) [#/Vo l]on 04-25-2024 Neutrophils (Bld) [#/Vol] Neutrophils [#/volume] in Blood by Automated count High 1.4-6.5 [facility] Neutrophils/100 WBC Auto (Bl d)on 04-25-2024 Neutrophils/100 WBC (Bld) Automated neutrophil % High 43.0-75.0 [facility] No Panel Informationon 04-25 25-Hydroxy Vitamin D Total 31.2 ng/mL [facility] Comment on above: <20 ng/mL Vit D defi cient20-<30 ng/mL Vit D -661 ng/mL Vit D sufficient>100 ng/mL Potential Toxicity Eosinophils # (Auto) 0.3 10 3/uL 0.0-0.7 [facility] Immature Granulocyte # (Auto) 0.04 10 3/uL High 0.00-0.03 [facility] Urine Random Creatinine 21.34 mg/dL 20.0 0-300. 00 [facility] Platelet mean volume Auto (B ld) [Entitic vol]on 04-25-2024 Platelet mean volume (Bld) [Entitic vol] Platelet mean volume [Entitic volume] in Blood by Automated count Low 9.5-13.5 [facility] Platelets Auto (Bld) [#/Vol] on 04-25-2024 Platelets (Bld) [#/Vol] Platelets [#/vol ume] in Blood by Automated count 150-450 [facility] RBC Auto (Bld) [#/Vol]on RBC (Bld) [#/Vol] Erythrocytes [#/volu me] in Blood by Automated count 4.20-5.40 [facility] Serum or plasma albumin/glob ulin mass ratioon 04-25-2024 Albumin/Globulin [Mass ratio] Serum or plasma albumin/globulin mass ratio [facility] Serum or plasma anion gap de terminationon 04-25-2024 Anion gap [Moles/Vol] Serum or plasma an ion gap determination [facility] Serum or plasma total choles terol/high density lipoprotein (HDL) cholesterol mass royal 04-25-2024 Cholesterol.total/Sonia sterol in HDL [Mass ratio] Serum or plasma total cholesterol/high density lipoprotein (HDL) cholesterol mass rat [facility] Comment on above: 3.3 - 4.4 LOW RISK4. 4 - 7.1 AVERAGE RISK7.1 - 11.0 MODERATE RISK>11.0 HIGH RISK Urine microalbumin/creatinin e mass ratioon 04-25-2024 Albumin/Creatinine DL <= 20 mg/L (U) [Mass ratio] Urine microalbumin/creatinine mass ratio High 0.0-29.9 [facility] Comment on above: NO MICROALBUMINURIA 0-29 MG/GCLINICAL MICROALBUMINURIA 30-300 MG/GMACROALBUMINURIA >300 MG/G Ophthalmic OCT panelon 01-07 [facility] Right Eye Images reviewed and comparison made to baseline, Images reviewed. To assess optic nerve function and for use in future follow-up. Reliability: good and adequate. Left Eye Images reviewed and comparison made to baseline, Images reviewed. To assess optic nerve function and for use in future follow-up. Reliability: borderline. 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 Stable. [facility] Radiology Study observation (narrative) [facility] MR BRAIN W AND WO CONTRAST ( [...] INR Coag (Bld) [Relative time] 4.26 {INR} [facility] Work Phone: PROTIMEon 10-07-2022 INR Coag (PPP) [Relative time] 4.26 {INR} Critically high [facility] Comment on above: Performed By: #### P T #### [facility] [address] [address] [address] Marilee Olmos INR GUIDELINES SEE BELOW Normal [facility] Comment on above: Result Comment: SARIKA RED INR: 2.0 - 3.0 CONDITIONS NOT LISTED BELOW 2.5 - 3.5 FOR PROSTHETIC HEART VALVE REPLACEMENT 2.5 - 3.5 RECURRENT THROMBOSIS Performed By: #### P T #### [facility] [address] [address] [address] Marilee Olmos PT Coag (PPP) [Time] 41.6 s Critically high 9.0-11.6 [facility] Comment on above: Performed By: #### P T #### [facility] [address] [address] [address] Marilee Olmos Tobacco Screening.on 023 Adult depression screening assessment No [facility] Work Phone: Fall risk assessment a) No falls within the last year [facility] [employer] DO Work Phone: Tobacco use status [facility]PH[facility] b) No M [facility] 250 DO Work Phone: Laboratory - Coagulationon 0 09-11-2022 INR Coag (Bld) [Relative time] 2.94 {INR} [facility] 250 DO Work Phone: PROTIMEon 09-11-2022 INR Coag (PPP) [Relative time] 2.94 {INR} Normal [facility] Comment on above: Performed By: #### P T #### [facility] [address] [place] [address] Dr. Marilee Olmos INR GUIDELINES SEE BELOW Normal [facility] Comment on above: Result Comment: SARIKA RED INR: 2.0 - 3.0 CONDITIONS NOT LISTED BELOW 2.5 - 3.5 FOR PROSTHETIC HEART VALVE REPLACEMENT 2.5 - 3.5 RECURRENT THROMBOSIS Performed By: #### P T #### [facility] [address] [place] [address] Dr. Marilee Olmos PT Coag (PPP) [Time] 29.3 s Critically high 9.0-11.6 [facility] Comment on above: Performed By: #### P T #### [facility] [address] [place] [address] Dr. Marilee Olmos PROTIMEon 08-27-2022 INR Coag (PPP) [Relative time] 4.17 {INR} Critically high [facility] Comment on above: Performed By: #### P T #### [facility] [address] [place] [address] Dr. Marilee Olmos INR GUIDELINES SEE BELOW Normal [facility] Comment on above: Result Comment: SARIKA RED INR: 2.0 - 3.0 CONDITIONS NOT LISTED BELOW 2.5 - 3.5 FOR PROSTHETIC HEART VALVE REPLACEMENT 2.5 - 3.5 RECURRENT THROMBOSIS Performed By: #### P T #### [facility] [address] [place] [address] Dr. Marilee Olmos PT Coag (PPP) [Time] 40.8 s Critically high 9.0-11.6 [facility] Comment on above: Performed By: #### P T #### [facility] [address] [place] [address] Dr. Marilee Olmos PROTIMEon 08-14-2022 INR Coag (PPP) [Relative time] 2.46 {INR} Normal [facility] Comment on above: Performed By: #### P T #### [facility] [address] [place] [address] Dr. Marilee Olmos INR GUIDELINES SEE BELOW Normal [facility] Comment on above: Result Comment: SARIKA RED INR: 2.0 - 3.0 CONDITIONS NOT LISTED BELOW 2.5 - 3.5 FOR PROSTHETIC HEART VALVE REPLACEMENT 2.5 - 3.5 RECURRENT THROMBOSIS Performed By: #### P T #### [facility] [address] [place] [address] Dr. Marilee Olmos PT Coag (PPP) [Time] 24.8 s Critically high 9.0-11.6 [facility] Comment on above: Performed By: #### P T #### [facility] [address] [place] [address] Dr. Marilee Olmos PROTIMEon 08-11-2022 INR Coag (PPP) [Relative time] 4.68 {INR} Critically high [facility] Comment on above: Performed By: #### P T #### [facility] [address] [place] [address] Dr. Marilee Olmos INR GUIDELINES SEE BELOW Normal [facility] Comment on above: Result Comment: SARIKA RED INR: 2.0 - 3.0 CONDITIONS NOT LISTED BELOW 2.5 - 3.5 FOR PROSTHETIC HEART VALVE REPLACEMENT 2.5 - 3.5 RECURRENT THROMBOSIS Performed By: #### P T #### [facility] [address] [place] [address] Dr. Marilee Olmos PT Coag (PPP) [Time] 45.5 s Critically high 9.0-11.6 [facility] Comment on above: Performed By: #### P T #### [facility] [address] [place] [address] Dr. Marilee Olmos PROTIMEon 07-30-2022 INR Coag (PPP) [Relative time] 4.08 {INR} Normal [facility] Comment on above: Performed By: #### P T #### [facility] [address] [place] [address] Dr. Marilee Olmos INR GUIDELINES SEE BELOW Normal [facility] Comment on above: Result Comment: SARIKA RED INR: 2.0 - 3.0 CONDITIONS NOT LISTED BELOW 2.5 - 3.5 FOR PROSTHETIC HEART VALVE REPLACEMENT 2.5 - 3.5 RECURRENT THROMBOSIS Performed By: #### P T #### [facility] [address] [place] [address] Dr. Marilee Olmos PT Coag (PPP) [Time] 39.9 s Critically high 9.0-11.6 [facility] Comment on above: Performed By: #### P T #### [facility] [address] [place] [address] Dr. Marilee Olmos Laboratory - Coagulationon 0 07-08-2022 INR Coag (Bld) [Relative time] 3.22 {INR} [address] Work Phone: PROTIMEon 07-08-2022 INR Coag (PPP) [Relative time] 3.33 {INR} Normal [facility] Comment on above: Performed By: #### P T #### [facility] [address] [place] [address] Dr. Marilee Olmos INR GUIDELINES SEE BELOW Normal [facility] Comment on above: Result Comment: SARIKA RED INR: 2.0 - 3.0 CONDITIONS NOT LISTED BELOW 2.5 - 3.5 FOR PROSTHETIC HEART VALVE REPLACEMENT 2.5 - 3.5 RECURRENT THROMBOSIS Performed By: #### P T #### [facility] [address] [place] [address] Dr. Marilee Olmos PT Coag (PPP) [Time] 33.0 s Critically high 9.0-11.6 [facility] Comment on above: Performed By: #### P T #### [facility] [address] [place] [address] Dr. Marilee Olmos PROTIMEon 06-18-2022 INR Coag (PPP) [Relative time] 3.22 {INR} Normal [facility] Comment on above: Performed By: #### P T #### [facility] [address] [place] [address] Dr. Marilee Olmos INR GUIDELINES SEE BELOW Normal [facility] Comment on above: Result Comment: SARIKA RED INR: 2.0 - 3.0 CONDITIONS NOT LISTED BELOW 2.5 - 3.5 FOR PROSTHETIC HEART VALVE REPLACEMENT 2.5 - 3.5 RECURRENT THROMBOSIS Performed By: #### P T #### [facility] [address] [place] [address] Dr. Marilee Olmos PT Coag (PPP) [Time] 31.9 s Critically high 9.0-11.6 [facility] Comment on above: Performed By: #### P T #### [facility] [address] [place] [address] Dr. Marilee Olmos PROTIMEon 06-09-2022 INR Coag (PPP) [Relative time] 3.40 {INR} Normal [facility] Comment on above: Performed By: #### P T #### [facility] [address] [place] [address] Dr. Marilee Olmos INR GUIDELINES SEE BELOW Normal [facility] Comment on above: Result Comment: SARIKA RED INR: 2.0 - 3.0 CONDITIONS NOT LISTED BELOW 2.5 - 3.5 FOR PROSTHETIC HEART VALVE REPLACEMENT 2.5 - 3.5 RECURRENT THROMBOSIS Performed By: #### P T #### [facility] [address] [place] [address] Dr. Marilee Olmos PT Coag (PPP) [Time] 33.6 s Critically high 9.0-11.6 [facility] Comment on above: Performed By: #### P T #### [facility] [address] [place] [address] Dr. Marilee Olmos PROTIMEon 05-19-2022 INR Coag (PPP) [Relative time] 3.00 {INR} Normal [facility] Comment on above: Performed By: #### P T #### [facility] [address] [place] [address] Dr. Marilee Olmos INR GUIDELINES SEE BELOW Normal [facility] Comment on above: Result Comment: SARIKA RED INR: 2.0 - 3.0 CONDITIONS NOT LISTED BELOW 2.5 - 3.5 FOR PROSTHETIC HEART VALVE REPLACEMENT 2.5 - 3.5 RECURRENT THROMBOSIS Performed By: #### P T #### [facility] [address] [place] [address] Dr. Marilee Olmos PT Coag (PPP) [Time] 30.2 s Critically high 9.0-11.6 [facility] Comment on above: Performed By: #### P T #### [facility] [address] [place] [address] Dr. Marilee Olmos PROTIMEon 04-28-2022 INR Coag (PPP) [Relative time] 3.12 {INR} Normal [facility] Comment on above: Performed By: #### P T #### [facility] [address] [place] [address] Dr. Marilee Olmos INR GUIDELINES SEE BELOW Normal [facility] Comment on above: Result Comment: SARIKA RED INR: 2.0 - 3.0 CONDITIONS NOT LISTED BELOW 2.5 - 3.5 FOR PROSTHETIC HEART VALVE REPLACEMENT 2.5 - 3.5 RECURRENT THROMBOSIS Performed By: #### P T #### [facility] [address] [place] [address] Dr. Marilee Olmos PT Coag (PPP) [Time] 31.3 s Critically high 9.0-11.6 [facility] Comment on above: Performed By: #### P T #### [facility] [address] [place] [address] Dr. Marilee Olmos PROTIMEon 03-26-2022 INR Coag (PPP) [Relative time] 2.93 {INR} Normal [facility] Comment on above: Performed By: #### P T #### [facility] [address] [place] [address] Dr. Marilee Olmos INR GUIDELINES SEE BELOW Normal [facility] Comment on above: Result Comment: SARIKA RED INR: 2.0 - 3.0 CONDITIONS NOT LISTED BELOW 2.5 - 3.5 FOR PROSTHETIC HEART VALVE REPLACEMENT 2.5 - 3.5 RECURRENT THROMBOSIS Performed By: #### P T #### [facility] [address] [place] [address] Dr. Marilee Olmos PT Coag (PPP) [Time] 29.5 s Critically high 9.0-11.6 [facility] Comment on above: Performed By: #### P T #### [facility] [address] [place] [address] Dr. Marilee Olmos CBC AUTO DIFFon 03-17-2022 BASO # 0.1 103/ul Normal 0.0-0.1 [facility] Comment on above: Performed By: #### P T #### [facility] [address] [place] [address] Dr. Marilee Olmos Basophils/100 WBC (Bld) 1.5 % Normal 0.2-2.0 [facility] Comment on above: Performed By: #### P T #### [facility] [address] [place] [address] Dr. Marilee Olmos EO # 0.2 103/ul Normal 0.0-0.7 [facility] Comment on above: Performed By: #### P T #### [facility] [address] [place] [address] Dr. Marilee Olmos Eosinophils/100 WBC (Bld) 2.9 % Normal 0.9-7.0 [facility] Comment on above: Performed By: #### P T #### [facility] [address] [place] [address] Dr. Marilee Olmos Erythrocyte distribution width (RBC) [Ratio] 13.2 % Normal 11.0-15.0 [facility] Comment on above: Performed By: #### P T #### [facility] [address] [place] [address] Dr. Marilee Olmos Hematocrit (Bld) [Volume fraction] 40.0 % Normal 36.0-48.0 [facility] Comment on above: Performed By: #### P T #### [facility] [address] [place] [address] Dr. Marilee Olmos Hemoglobin (Bld) [Mass/Vol] 13.2 g/dL Normal 12.0-16.0 [facility] Comment on above: Performed By: #### P T #### [facility] [address] [place] [address] Dr. Marilee Olmos IG # 0.04 10e3/ul Critically high 0.00-0.03 [facility] Comment on above: Performed By: #### P T #### [facility] [address] [place] [address] Dr. Marilee Olmos IG % 0.5 % Normal 0.0-0.5 [facility] Comment on above: Performed By: #### P T #### [facility] [address] [place] [address] Dr. Marilee Olmos LYMPH # 1.1 103/ul Critically low 1.2-3.8 [facility] Comment on above: Performed By: #### P T #### [facility] [address] [place] [address] Dr. Marilee Olmos Lymphocytes/100 WBC (Bld) 13.7 % Critically low 20.5-60.0 [facility] Comment on above: Performed By: #### P T #### [facility] [address] [place] [address] Dr. Marilee Olmos MANUAL DIFF REQ NO Normal [facility] Comment on above: Performed By: #### P T #### [facility] [address] [place] [address] Dr. Marilee Olmos MCH (RBC) [Entitic mass] 30.5 pg Normal 26.7-34.0 [facility] Comment on above: Performed By: #### P T #### [facility] [address] [place] [address] Dr. Marilee Olmos MCHC (RBC) [Mass/Vol] 33.0 g/dL Normal 29.9-35.2 [facility] Comment on above: Performed By: #### P T #### [facility] [address] [place] [address] Dr. Marilee Olmos MCV (RBC) [Entitic vol] 92.4 fL Normal 81.0-99.0 [facility] Comment on above: Performed By: #### P T #### [facility] [address] [place] [address] Dr. Marilee Olmos MONO # 0.8 103/ul Normal 0.3-0.8 [facility] Comment on above: Performed By: #### P T #### [facility] [address] [place] [address] Dr. Marilee Olmos Monocytes/100 WBC (Bld) 10.2 % Normal 1.7-12.0 [facility] Comment on above: Performed By: #### P T #### [facility] [address] [place] [address] Dr. Marilee Olmos NEUT # 5.7 103/ul Normal 1.4-6.5 [facility] Comment on above: Performed By: #### P T #### [facility] [address] [place] [address] Dr. Marilee Olmos Neutrophils/100 WBC (Bld) 71.2 % Normal 43.0-75.0 [facility] Comment on above: Performed By: #### P T #### [facility] [address] [place] [address] Dr. Marilee Olmos Platelet mean volume (Bld) [Entitic vol] 10.5 fL Normal 9.5-13.5 [facility] Comment on above: Performed By: #### P T #### [facility] [address] [place] [address] Dr. Marilee Olmos PLT 384 103/ul Normal 150-450 [facility] Comment on above: Performed By: #### P T #### [facility] [address] [place] [address] Dr. Marilee Olmos RBC 4.33 106/ul Normal 4.20-5.40 [facility] Comment on above: Performed By: #### P T #### [facility] [address] [place] [address] Dr. Marilee Olmos WBC 8.0 103/ul Normal 4.0-11.0 [facility] Comment on above: Performed By: #### P T #### [facility] [address] [place] [address] Dr. Marilee Olmos GLYCOHEMOGLOBIN A1Con 2021 ADA RECOMMENDATION SEE BELOW Normal [facility] Comment on above: Result Comment: ADA RECOMMENDED LIMIT 4.0 - 6.0 ADA THERAPEUTIC TARGET < 7.0 ACTION SUGGESTED > 7.0 Performed By: #### A 1C #### [facility] [address] [place] [address] Dr. Marilee Olmos Glucose [Mass/Vol] 171 mg/dL Normal [facility] Comment on above: Performed By: #### A 1C #### [facility] [address] [address] [address] Marilee Olmos HbA1c (Bld) [Mass fraction] 7.6 % Critically high 4.5-6.2 [facility] Comment on above: Performed By: #### A 1C #### [facility] [address] [place] [address] Dr. Marilee Olmos LIPID PROFILEon 03-17-2022 CHOL-HDL RATIO NORM SEE BELOW Normal [facility] Comment on above: Result Comment: 3.3 - 4.4 LOW RISK 4.4 - 7.1 AVERAGE RISK 7.1 - 11.0 MODERATE RISK >11.0 HIGH RISK Performed By: #### P T #### [facility] [address] [address] [address] Marilee Olmos Cholesterol [Mass/Vol] 170 mg/dL Normal <=[address] [facility] Comment on above: Performed By: #### P T #### [facility] [address] [place] [address] Dr. Marilee Olmos Cholesterol in HDL [Mass/Vol] 52 mg/dL Normal 40-60 [facility] Comment on above: Performed By: #### P T #### [facility] [address] [address] [address] Marilee Olmos Cholesterol in LDL [Mass/Vol] 94.6 mg/dL Normal [facility] Comment on above: Performed By: #### P T #### [facility] [address] [place] [address] Dr. Marilee Olmos Cholesterol.total/Sonia sterol in HDL [Mass ratio] 3.3 {ratio} Normal [facility] Comment on above: Performed By: #### P T #### [facility] [address] [place] [address] Dr. Marilee Olmos HDL NORMAL > or = 60 mg/dl - LO W CARDIOVASCULAR RISK <40 mg/dl - HIGH CARDIOVASCULAR RISK Normal [facility] Comment on above: Performed By: #### P T #### [facility] [address] [place] [address] Dr. Marilee Olmos LDL CALC NORMAL SEE BELOW Normal [facility] Comment on above: Result Comment: <100 mg/dl OPTIMAL 100 - 129 mg/dl NEAR OR ABOVE OPTIMAL 130 - 159 mg/dl BORDERLINE HIGH 160 - 189 mg/dl HIGH >190 mg/dl VERY HIGH Performed By: #### P T #### [facility] [address] [place] [address] Dr. Marilee Olmos Triglyceride [Mass/Vol] 117 mg/dL Normal <=150 T [facility] Comment on above: Performed By: #### P T #### [facility] [address] [place] [address] Dr. Marilee Olmos VLDL CALC 23.4 mg/dL Normal [facility] Comment on above: Performed By: #### P T #### [facility] [address] [place] [address] Dr. Marilee Olmos MICROALBUMIN, RAND URon 11-0 mALB 4.6 mg/L Normal <=30.0 [facility] Comment on above: Performed By: #### M ALBR #### [facility] [address] [place] [address] Dr. Marilee Olmos PROF 14(COMP METB)on 022 Albumin [Mass/Vol] 4.0 g/dL Normal 3.4-5.0 [facility] Comment on above: Performed By: #### P T #### [facility] [address] [place] [address] Dr. Marilee Olmos Albumin/Globulin [Mass ratio] 1.1 {ratio} Normal [facility] Comment on above: Performed By: #### P T #### [facility] [address] [place] [address] Dr. Marilee Olmos ALP [Catalytic activity/Vol] 81 U/L Normal 46-116 [facility] Comment on above: Performed By: #### P T #### [facility] [address] [place] [address] Dr. Marilee Olmos ALT [Catalytic activity/Vol] 16 U/L Normal 14-59 [facility] Comment on above: Performed By: #### P T #### [facility] [address] [address] [address] Marilee Olmos Anion gap [Moles/Vol] 10.2 mmol/L Normal [facility] Comment on above: Performed By: #### P T #### [facility] [address] [address] [address] Marilee Olmos AST [Catalytic activity/Vol] 13 U/L Critically low 15-37 [facility] Comment on above: Performed By: #### P T #### [facility] [address] [place] [address] Dr. Marilee Olmos Bilirubin [Mass/Vol] 0.5 mg/dL Normal 0.2-1.0 [facility] Comment on above: Performed By: #### P T #### [facility] [address] [place] [address] Dr. Marilee Olmos Calcium [Mass/Vol] 9.5 mg/dL Normal 8.5-10.1 [facility] Comment on above: Performed By: #### P T #### [facility] [address] [place] [address] Dr. Marilee Olmos Chloride [Moles/Vol] 98 mmol/L Normal 98-107 [facility] Comment on above: Performed By: #### P T #### [facility] [address] [address] [address] Marilee Olmos CO2 [Moles/Vol] 29.7 mmol/L Normal 21.0-32.0 [facility] Comment on above: Performed By: #### P T #### [facility] [address] [place] [address] Dr. Marilee Olmos Creatinine [Mass/Vol] 0.97 mg/dL Normal 0.55-1.02 [facility] Comment on above: Performed By: #### P T #### [facility] [address] [address] [address] Marilee Olmos EGFR-AF GREEK >60 Normal >=60 [facility] Comment on above: Performed By: #### P T #### [facility] [address] [address] [address] Marilee Olmos EGFR-NON AF GREEK 56 mL/min/1.73m2 Critically low >=60 [facility] Comment on above: Performed By: #### P T #### [facility] [address] [address] [address] Marilee Olmos Globulin (S) [Mass/Vol] 3.8 g/dL Normal T [facility] Comment on above: Performed By: #### P T #### [facility] [address] [place] [address] Dr. Marilee Olmos Glucose [Mass/Vol] 151 mg/dL Critically high 74-106 T [facility] Comment on above: Performed By: #### P T #### [facility] [address] [address] [address] Marilee Olmos Potassium [Moles/Vol] 3.9 mmol/L Normal 3.5-5.1 [facility] Comment on above: Performed By: #### P T #### [facility] [address] [address] [address] Marilee Olmos Protein [Mass/Vol] 7.8 g/dL Normal 6.4-8.2 [facility] Comment on above: Performed By: #### P T #### [facility] [address] [address] [address] Marilee Olmos Sodium [Moles/Vol] 134 mmol/L Critically low 136-[address] [facility] Comment on above: Performed By: #### P T #### [facility] [address] [address] [address] Marilee Olmos Urea nitrogen [Mass/Vol] 21.0 mg/dL Critically high 7.0-18.0 [facility] Comment on above: Performed By: #### P T #### [facility] [address] [address] [address] Marilee Olmos Urea nitrogen/Creatinine [Mass ratio] 21.6 mg/mg Normal [facility] Comment on above: Performed By: #### P T #### [facility] [address], [place] [address] Dr. Marilee Olmos Laboratory - Coagulationon 1 INR Coag (Bld) [Relative time] 2.60 {INR} -[facility] mary 250 DO Work Phone: PROTIMEon 02-26-2022 INR Coag (PPP) [Relative time] 2.60 {INR} Normal [facility] Comment on above: Performed By: #### P T #### [facility] [address] [place] [address] Dr. Marilee Olmos INR GUIDELINES SEE BELOW Normal [facility] Comment on above: Result Comment: SARIKA RED INR: 2.0 - 3.0 CONDITIONS NOT LISTED BELOW 2.5 - 3.5 FOR PROSTHETIC HEART VALVE REPLACEMENT 2.5 - 3.5 RECURRENT THROMBOSIS Performed By: #### P T #### [facility] [address] [place] [address] [address] Marilee Olmos PT Coag (PPP) [Time] 26.4 s Critically high 9.0-11.6 [facility] Comment on above: Performed By: #### P T #### [facility] [address] [place] [address] Dr. Marilee Olmos Office Visit (Cardiology)on 02-12-2022 [...] TABLET BY MOUTH DAILY OR DIRECTED BY [facility] Patient did not bring medication list [...] . Signatures Electronically signed by : Karson Lopez MD; Feb 12 2022 4:39PM EST (Author) Appendix #1 Vital Signs Patient: LYRIC JUAREZ; : 1945; Recorded: 12Feb2022 04:38PMRecorded: 12Feb2022 03:13PMRecorded: 12Feb2022 02:46PM Heart Rate60, R Lgzbdk28, R Radial Japglowr818, RUE, Halrunzf004, LUE, Wvypevo588, RUE, Sitting Rqvfoqsoz12, RUE, Eahfzdrp05, LUE, Urfucmn14, RUE, Sitting (more content not included)... Normal [employer] Tobacco Screening.on 022 Adult depression screening assessment Yes [place] [address] DO Work Phone: Adult depression screening assessment No [place] [address] DO Work Phone: Fall risk assessment a) No falls within the last year [place] [address] DO Work Phone: Tobacco use status CPHS b) No [place] [address] DO Work Phone: Laboratory - Coagulationon 1 INR Coag (Bld) [Relative time] 2.40 {INR} [place] [address] DO Work Phone: PROTIMEon 02-06-2022 INR Coag (PPP) [Relative time] 2.40 {INR} Normal [facility] Comment on above: Performed By: #### P T #### [facility] [address] [place] [address] Dr. Marilee Olmos INR GUIDELINES SEE BELOW Normal [facility] Comment on above: Result Comment: SARIKA RED INR: 2.0 - 3.0 CONDITIONS NOT LISTED BELOW 2.5 - 3.5 FOR PROSTHETIC HEART VALVE REPLACEMENT 2.5 - 3.5 RECURRENT THROMBOSIS Performed By: #### P T #### [facility] [address] [place] [address] Dr. Marilee Olmos PT Coag (PPP) [Time] 24.5 s Critically high 9.0-11.6 [facility] Comment on above: Performed By: #### P T #### [facility] [address] [place] [address] Dr. Marilee Olmos Laboratory - Coagulationon 0 01-22-2022 INR Coag (Bld) [Relative time] 3.70 {INR} [place] [address] DO Work Phone: PROTIMEon 01-22-2022 INR Coag (PPP) [Relative time] 3.70 {INR} Normal [facility] Comment on above: Performed By: #### P T #### [facility] [address] [place] [address] Dr. Marilee Olmos INR GUIDELINES SEE BELOW Normal [facility] Comment on above: Result Comment: SARIKA RED INR: 2.0 - 3.0 CONDITIONS NOT LISTED BELOW 2.5 - 3.5 FOR PROSTHETIC HEART VALVE REPLACEMENT 2.5 - 3.5 RECURRENT THROMBOSIS Performed By: #### P T #### [facility] [address] [place] [address] Dr. Marilee Olmos PT Coag (PPP) [Time] 36.7 s Critically high 9.0-11.6 [facility] Comment on above: Performed By: #### P T #### [facility] [address] [place] [address] Dr. Marilee Olmos PROTIMEon 12-24-2021 INR Coag (PPP) [Relative time] 2.79 {INR} Normal [facility] Comment on above: Performed By: #### P T #### [facility] [address] [place] [address] Dr. Marilee Olmos INR GUIDELINES SEE BELOW Normal [facility] Comment on above: Result Comment: SARIKA RED INR: 2.0 - 3.0 CONDITIONS NOT LISTED BELOW 2.5 - 3.5 FOR PROSTHETIC HEART VALVE REPLACEMENT 2.5 - 3.5 RECURRENT THROMBOSIS Performed By: #### P T #### [facility] [address] [place] [address] Dr. Marilee Olmos PT Coag (PPP) [Time] 28.2 s Critically high 9.0-11.6 [facility] Comment on above: Performed By: #### P T #### [facility] [address] [place] [address] Dr. Marilee Olmos Laboratory - Coagulationon 0 11-27-2021 INR Coag (Bld) [Relative time] 2.67 {INR} [facility] 250 DO Work Phone: PROTIMEon 11-27-2021 INR Coag (PPP) [Relative time] 2.67 {INR} Normal [facility] Comment on above: Performed By: #### P T #### [facility] [address] [place] [address] Dr. Marilee Olmos INR GUIDELINES SEE BELOW Normal [facility] Comment on above: Result Comment: SARIKA RED INR: 2.0 - 3.0 CONDITIONS NOT LISTED BELOW 2.5 - 3.5 FOR PROSTHETIC HEART VALVE REPLACEMENT 2.5 - 3.5 RECURRENT THROMBOSIS Performed By: #### P T #### [facility] [address] [place] [address] Dr. Marilee Olmos PT Coag (PPP) [Time] 27.0 s Critically high 9.0-11.6 [facility] Comment on above: Performed By: #### P T #### [facility] [address] [place] [address] Dr. Marilee Olmos Laboratory - Coagulationon 0 11-06-2021 INR Coag (Bld) [Relative time] 2.79 {INR} [facility] mary [employer] DO Work Phone: PROTIMEon 11-06-2021 INR Coag (PPP) [Relative time] 2.79 {INR} Normal [facility] Comment on above: Performed By: #### P T #### [facility] [address] [place] [address] Dr. Marilee Olmos INR GUIDELINES SEE BELOW Normal [facility] Comment on above: Result Comment: SARIKA RED INR: 2.0 - 3.0 CONDITIONS NOT LISTED BELOW 2.5 - 3.5 FOR PROSTHETIC HEART VALVE REPLACEMENT 2.5 - 3.5 RECURRENT THROMBOSIS Performed By: #### P T #### [facility] [address] [place] [address] Dr. Marilee Olmos PT Coag (PPP) [Time] 28.2 s Critically high 9.0-11.6 [facility] Comment on above: Performed By: #### P T #### [facility] [address] [place] [address] Dr. Marilee Olmos Laboratory - Coagulationon 0 10-16-2021 INR Coag (Bld) [Relative time] 3.10 {INR} [facility] mary 250 DO Work Phone: Laboratory - Coagulationon 0 07-25-2021 INR Coag (Bld) [Relative time] 3.42 {INR} [facility] lk 600 DO Work Phone: Laboratory - Coagulationon 0 06-26-2021 INR Coag (Bld) [Relative time] 3.7 {INR} [facility] Work [facility] - Co[facility] 0 06-06-2021 INR Coag (Bld) [Relative time] 3.57 {INR} [facility] mary 250 DO Work Phone: Office Visit (Cardiology)on [...] signing my name below, I, Dione Alex LPN, Scribe, attest that this documentation has been prepared under the direction and in the presence of Dr. Karson Lopez MD. All medical record entries made by [...] 1 TABLET DAILY. DilTIAZem CD 300 MG [id number] 1 CAPSULE Daily Lisinopril 10 MG Oral TabletTAKE 1 TABLET DAILY. Potassium Chloride ER 20 MEQ Oral Tablet Extended ReleaseTake 1 tablet twice daily Pravastatin Sodium 40 MG Oral TabletTAKE 1 TABLET DAILY. Vitamin D CAPSAs directed. Warfarin Sodium 2.5 MG Oral TabletTake 1 - 2 tablets daily as directed by [facility] Patient did not bring medication list [...] . Signatures Electronically signed by : Karson Lopez MD; Jun 04 2021 11:11AM EST (Author) Appendix #1 Vital Signs Patient: LYRIC JUAREZ; : 1945; Recorded: 04Jun2021 10:35AMRecorded: 04Jun2021 10:00AMRecorded: 04Jun2021 09:58AM Nwvjcpnr891, LUE, Vfqkuur004, RUE, Qabijej196, LUE, Sitting Kcxobqrgq08, LUE, Geymbsp00, RUE, Kxdubad701, LUE, Sitting Heart Rate84, L Brachial Ar (more content not included)... Normal [employer] Tobacco Screening.on 022 Fall risk assessment a) No falls within the last year [facility] [employer] DO Work Phone: Tobacco use status CP b) No M [facility] [employer] DO Work Phone: Laboratory - Coagulationon 1 INR Coag (Bld) [Relative time] 2.52 {INR} [facility] [employer] 250 DO Work Phone: Laboratory - Coagulationon 0 02-07-2021 INR Coag (Bld) [Relative time] 2.6 {INR} [facility] [employer] 250 DO Work Phone: ANES Hector 07-12-2020 ANES POST HNO ID: [id number] Author: Luis Locke Service: Anesthesiology Author Type: [...] 12, 2020 TIME: 4:37 PM PAGER/CONTACT #: [phone] Normal [facility] Eye Culture and Smron 2020 Eye Culture and Smr Sp. Request/Comment: - Specimen received in sterile container. Smear Result - No organisms seen No Polymorphonuclear Leukocytes Culture Result - No growth 14 days Normal [facility] Comment on above: Performed By: #### [facility] #### [facility] [address] [place], [place] [address] OPERATIVE NOon 07-12-2020 OPERATIVE NO HNO ID: [id number] Author: Chi Faustin Service: Ophthalmology Author Type: Physician Type: Operative Report Filed: 07/12/2020 2:40 PM Note Text: OPERATIVE REPORT NAME: Lyric Juarez LOG ID: [id number] SURGERY DATE: 07/12/2020 INCISION/PROCEDURE START TIME: 1:57 [...] Implant Name Type Inv. Item Serial No. Multimedia Specialist Lot No. LRB Model Num No. Used IMP CORNEA LAMELLAR 9MM1/2MOON - [id number] Cornea IMP CORNEA LAMELLAR 9MM1/2MOON [id number] OTHER Right [id number] ESTIMATED BLOOD LOSS: Minimal COMPLICATIONS: None DRAINS: None SPECIMENS: None I/primary surgeon/proceduralist performed the entire procedure. Chi Faustin M.D. [facility] CNOVon 07-10-2020 CNOV Office Visit (IMOPMN ) -- LYRIC JUAREZ ([id number]) 1945 F Date Time Provider Department 07/10/20 10:00 AM LIZETH MENDEZ (MARIAH) IMOPMN During your visit today, we recorded the following information about you: Temperature Pulse Blood pressure Weight 97.6 degrees 112/minute 141/85 81.6 kg Height 1.676 m PRISCA Ospina, KAL 07/10/2020 9:36 AM Signed Consulted by: DR. [...] Lizeth Ramsey PA-C 07/10/2020 9:57 AM Signed [facility] Patient Instructions for Surgery FOOD INSTRUCTIONS: NO [...] anesthesia, you must have a responsible adult rolloff truck driver take you home, and be with you after surgery. You may use a ride service such as Lyft, Uber, or [employer] as long as you have a responsible adult accompanying you and taking responsibility for you. We strongly recommend a reliable adult stays with you overnight to help take care of you. If you have any questions or concerns regarding today's visit please do not hesitate to contact the [facility] center at [phone] or [phone], ext [phone]. Signature: Lizeth Ramsey PA-C Date: July 10, 2020 Lizeth Ramsey PA-C 07/10/2020 2:32 PM Signed HISTORY AND PHYSICAL EXAMINATION ([facility]) SERVICE DATE: 07/10/2020 SERVICE TIME: 8:14 AM [...] activity. Significant Anesthesia Considerations: Postop nausea/vomiting. PAST MEDICAL/SURGICAL/FAMILY/SO CIAL HISTORY PAST MEDICAL HISTORY Diagnosis Date - [...] SHUNT Right (more content not included)... Normal [facility] HISTORY PHYSICALon HISTORY PHYSICAL HNO ID: [id number] Author: Lizeth Mendez (Pa) Service: ? Author Type: Physician Research Chemist Type: HANDP Filed: 07/10/2020 2:32 PM Note [...] activity. Significant Anesthesia Considerations: Postop nausea/vomiting. PAST MEDICAL/SURGICAL/FAMILY/SO CIAL HISTORY PAST MEDICAL HISTORY Diagnosis Date - [...] fevers. Neuro: No history of TIA's, stroke, ANTISQUEAK FILLER tumor, impaired sensorium, hemiplegia, paraplegia or quadriplegia. No neurological symptoms or problems. Respiratory: No history of current cough or dyspnea, or pneumonia in the past 6 weeks. No history of respiratory/pulmonary symptoms or problems. Cardiovascular: Hypertension requiring meds, Anticoagulation therapy, (more content not included)... Normal [facility] PreOp/PreProc COVIDon 2020 SARS-CoV-2 (COVID-19) RNA LAURA+probe Ql (Unsp spec) UPPER RESPIRATORY TRACT SWAB Normal [facility] Comment on above: Performed By: #### P OCOVD #### [facility] [address] [place], [place] [address] SARS-CoV-2 (COVID-19) RNA LAURA+probe Ql (Unsp spec) Negative Normal Negative for COVID19 (SARS CoV2) by PCR. [facility] Comment on above: Result Comment: This test was developed and its performance characteristics determined by [facility]'s [facility] [place]. This test has been authorized by FDA [...] 2019. Performed By: #### P OCOVD #### [facility] [address] [place], [place] [id number] HOSPon 07-04-2020 HOSP Patient:Tracey Juarez MRN: Height:5' 6 (1.676 m) Weight:180 lb [...] long-term current use of insulin (HCC) [E11.9] 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 [Z79.01] Hyperlipidemia [E78.5] Other cra officer (current) drug therapy [Z79.899] Chronic atrial fibrillation [...] for erosion (Avril Michaels) 02/10/18 KIERA IOP=44 ([place]) OS: 05/19/18 KIERA ([place]) for IOP 29 05/19/2018? Express Ocular Medication [...] Coumadin By signing my name below, I, Christina [...] schedule for eye surgery. Please call my book coverer, Catalina Gaytan. She will call you in the next few days if she doesn't hear from you. Catalina (book coverer:) [phone], option [phone]. Dr. Faustin Office: [phone] if you have any questions. Please note [...] This w (more content not included)... Normal [facility] 06-29-2020 CNPN Telephone (OPHTMN) -- LYRIC JUAREZ ([id number]) 1945 F Date Time Provider Department 06/29/20 CHI FAUSTIN During your visit today, we recorded the following information about you: Nguyen Jamila ADM 06/29/2020 10:[address] Colon ([phone]) would like for Dr. Faustin to see [...] by CHI FAUSTIN MD on 06/29/20 Normal [facility] PT/INRon 10-12-2019 INR Coag (PPP) [Relative time] 2.4 {INR} [facility] 0[facility]9 - 1.1 [facility] Comment on above: Performed By: #### P TINR #### [address] [address] PT Coag (PPP) [Time] 28.1 s High 10.1 - 13.3 [facility] Comment on above: Result Comment: Note new reference range as of 10/04/2019. Performed By: #### P TINR #### [address] [place] [address] PT/INRon 09-12-2019 INR Coag (PPP) [Relative time] 2.5 {INR} High 0.9 - 1.1 [facility] Comment on above: Performed By: #### P TINR #### [address] [place] [address] PT Coag (PPP) [Time] 28.5 s High 9.7 - 12.7 [facility] Comment on above: Performed By: #### P TINR #### [address] [address] PT/INRon 08-10-2019 INR Coag (PPP) [Relative time] 2.1 {INR} High 0.9 - 1.1 [facility] Comment on above: Performed By: #### P TINR #### [address] [place] [address] PT Coag (PPP) [Time] 23.6 s High 9.7 - 12.7 [facility] Comment on above: Performed By: #### P TINR #### [address] [place] [address] PT/INRon 07-13-2019 INR Coag (PPP) [Relative time] 2.2 {INR} High 0.9 - 1.1 [facility] Comment on above: Performed By: #### P TINR #### [address] [place] [address] PT Coag (PPP) [Time] 24.7 s High 9.7 - 12.7 [facility] Comment on above: Performed By: #### P TINR #### [address] [place] [address] PT/INRon 06-15-2019 INR Coag (PPP) [Relative time] 2.2 {INR} High 0.9 - 1.1 [facility] Comment on above: Performed By: #### P TINR #### [address] [place] [address] PT Coag (PPP) [Time] 25.6 s High 9.7 - 12.7 [facility] Comment on above: Performed By: #### P TINR #### [address] [address] PT/INRon 06-01-2019 INR Coag (PPP) [Relative time] 2.1 {INR} High 0.9 - 1.1 [facility] Comment on above: Performed By: #### P TINR #### [address] [address] PT Coag (PPP) [Time] 23.6 s High 9.7 - 12.7 [facility] Comment on above: Performed By: #### P TINR #### [address] [place] [address] PT/INRon 05-17-2019 INR Coag (PPP) [Relative time] 1.8 {INR} High 0.9 - 1.1 [facility] Comment on above: Performed By: #### P TINR #### [address] [place] [address] PT Coag (PPP) [Time] 20.2 s High 9.7 - 12.7 [facility] Comment on above: Performed By: #### P TINR #### [address] [place] [address] PT/INRon 04-27-2019 INR Coag (PPP) [Relative time] 1.9 {INR} High 0.9 - 1.1 [facility] Comment on above: Performed By: #### P TINR #### [address] [place] [address] PT Coag (PPP) [Time] 21.6 s High 9.7 - 12.7 [facility] Comment on above: Performed By: #### P TINR #### [address] [place] [address] PT/INRon 04-11-2019 INR Coag (PPP) [Relative time] 1.7 {INR} High 0.9 - 1.1 [facility] Comment on above: Performed By: #### P TINR #### [address] [place] [address] PT Coag (PPP) [Time] 19.6 s High 9.7 - 12.7 [facility] Comment on above: Performed By: #### P TINR #### [address] [address] PT/INRon 03-14-2019 INR Coag (PPP) [Relative time] 2.0 {INR} High 0.9 - 1.1 [facility] Comment on above: Performed By: #### P TINR #### [address] [place] [address] PT Coag (PPP) [Time] 22.3 s High 9.7 - 12.7 [facility] Comment on above: Performed By: #### P TINR #### [address] [place] [address] PT/INRon 02-09-2019 INR Coag (PPP) [Relative time] 2.0 {INR} High 0.9 - 1.1 [facility] Comment on above: Performed By: #### P TINR #### [address] [place] [address] PT Coag (PPP) [Time] 22.9 s High 9.7 - 12.7 [facility] Comment on above: Performed By: #### P TINR #### [address] [place] [address] PT/INRon 01-12-2019 INR Coag (PPP) [Relative time] 2.2 {INR} High 0.9 - 1.1 [facility] Comment on above: Performed By: #### P TINR #### [address] [address] PT Coag (PPP) [Time] 24.9 s High 9.7 - 12.7 [facility] Comment on above: Performed By: #### P TINR #### [address] [address] PT/INRon 12-13-2018 INR Coag (PPP) [Relative time] 2.1 {INR} High 0.9 - 1.1 [facility] Comment on above: Performed By: #### P TINR #### [address] [address] PT Coag (PPP) [Time] 24.0 s High 9.7 - 12.7 [facility] Comment on above: Performed By: #### P TINR #### [address] [address] PT/INRon 11-08-2018 INR Coag (PPP) [Relative time] 2.3 {INR} High 0.9 - 1.1 [facility] Comment on above: Performed By: #### P TINR #### [address] [address] PT Coag (PPP) [Time] 26.3 s High 9.7 - 12.7 [facility] Comment on above: Performed By: #### P TINR #### [address] [address] Prothrombin Timeon 9 INR Coag RelTime (PPP) 3.70 {INR} High 0.90-1.10 [facility] Comment on above: Performed By: #### 3 [id number] #### [facility] [address] [place] [address] Prothrombin time (PT) Coag time (PPP) 42.9 s High 9.7-12.7 [facility] Comment on above: Result Comment: MARY LOPEZ NOTE NEW REFERENCE RANGE EFFECTIVE 2018 Performed By: #### 3 [id number] #### [facility] [address] [place] [address] Prothrombin Timeon 9 INR Coag RelTime (PPP) 2.42 {INR} High 0.90-1.10 [facility] Comment on above: Performed By: #### 3 [id number] #### [facility] [address] [place] [address] Prothrombin time (PT) Coag time (PPP) 27.9 s High 9.7-12.7 [facility] Comment on above: Result Comment: PLENaseem LOPEZ NOTE NEW REFERENCE RANGE EFFECTIVE 2018 Performed By: #### 3 [id number] #### [facility] [address] [place] [address] Prothrombin Timeon 9 INR Coag RelTime (PPP) 2.74 {INR} High 0.90-1.10 [facility] Comment on above: Performed By: #### 3 [id number] #### [facility] [address] [place] [address] Prothrombin time (PT) Coag time (PPP) 31.6 s High 9.7-12.7 [facility] Comment on above: Result Comment: PLEA NOTE NEW REFERENCE RANGE EFFECTIVE 2018 Performed By: #### 3 [id number] #### [facility] [address] [place] [address] Prothrombin Timeon 9 INR Coag RelTime (PPP) 1.79 {INR} High 0.90-1.10 [facility] Comment on above: Performed By: #### 3 [id number] #### [facility] [address] [place] [address] Prothrombin time (PT) Coag time (PPP) 20.5 s High 9.7-12.7 [facility] Comment on above: Result Comment: PLEA NOTE NEW REFERENCE RANGE EFFECTIVE 2018 Performed By: #### 3 [id number] #### [facility] [address] [place] [address] Prothrombin Timeon 9 INR Coag RelTime (PPP) 3.66 {INR} High 0.90-1.10 [facility] Comment on above: Performed By: #### 3 [id number] #### [facility] [address] [place] [address] Prothrombin time (PT) Coag time (PPP) 42.5 s High 9.7-12.7 [facility] Comment on above: Result Comment: MARY LOPEZ NOTE NEW REFERENCE RANGE EFFECTIVE 2018 Performed By: #### 3 [id number] #### [facility] [address] [place] [address] Prothrombin Timeon 8 INR Coag RelTime (PPP) 2.59 {INR} High 0.90-1.10 [facility] Comment on above: Performed By: #### 3 [id number] #### [facility] [address] [place] [address] Prothrombin time (PT) Coag time (PPP) 29.8 s High 9.7-12.7 [facility] Comment on above: Result Comment: MARY LOPEZ NOTE NEW REFERENCE RANGE EFFECTIVE 2018 Performed By: #### 3 [id number] #### [facility] [address] [place] [address] Prothrombin Timeon 8 INR Coag RelTime (PPP) 3.57 {INR} High 0.90-1.10 [facility] Comment on above: Performed By: #### 3 [id number] #### [facility] [address] [place] [address] Prothrombin time (PT) Coag time (PPP) 41.4 s High 9.7-12.7 [facility] Comment on above: Result Comment: MARY LOPEZ NOTE NEW REFERENCE RANGE EFFECTIVE 2018 Performed By: #### 3 [id number] #### [facility] [address] [place] [address] Prothrombin Timeon 8 INR Coag RelTime (PPP) 3.57 {INR} High 0.90-1.10 [facility] Comment on above: Performed By: #### 3 [id number] #### [facility] [address] [place] [address] Prothrombin time (PT) Coag time (PPP) 40.1 s High 9.8-12.7 [facility] Comment on above: Performed By: #### 3 [id number] #### [facility] [address] [place] [address] Prothrombin Timeon 8 INR Coag RelTime (PPP) 1.78 {INR} High 0.90-1.10 [facility] Comment on above: Performed By: #### 3 [id number] #### [facility] [address] [place] [address] Prothrombin time (PT) Coag time (PPP) 19.9 s High 9.8-12.7 [facility] Comment on above: Performed By: #### 3 [id number] #### [facility] [address] [place] [address] Prothrombin Timeon 8 INR Coag RelTime (PPP) 2.46 {INR} High 0.90-1.10 [facility] Comment on above: Performed By: #### 3 [id number] #### [facility] [address] [place] [address] Prothrombin time (PT) Coag time (PPP) 27.6 s High 9.8-12.7 [facility] Comment on above: Performed By: #### 3 [id number] #### [facility] [address] [place] [address] Prothrombin Timeon 8 INR Coag RelTime (PPP) 2.76 {INR} High 0.90-1.10 [facility] Comment on above: Performed By: #### 3 [id number] #### [facility] [address] [place] [address] Prothrombin time (PT) Coag time (PPP) 30.9 s High 9.8-12.7 [facility] Comment on above: Performed By: #### 3 [id number] #### [facility] [address] [place] [address] Prothrombin Timeon 8 INR Coag RelTime (PPP) 3.19 {INR} High 0.90-1.10 [facility] Comment on above: Result Comment: MARY LOPEZ NOTE NEW REFERENCE RANGE EFFECTIVE 2017 Performed By: #### 3 [id number] #### [facility] [address] [place] [address] Prothrombin time (PT) Coag time (PPP) 35.8 s High 9.8-12.7 [facility] Comment on above: Result Comment: MARY LOPEZ NOTE NEW REFERENCE RANGE EFFECTIVE 2017 Performed By: #### 3 [id number] #### [facility] [address] [place] [address] Prothrombin Timeon 8 INR Coag RelTime (PPP) 3.37 {INR} High 0.90-1.10 [facility] Comment on above: Result Comment: MARY LOPEZ NOTE NEW REFERENCE RANGE EFFECTIVE 2017 Performed By: #### [id number] #### [facility] [address] [place] [address] Prothrombin time (PT) Coag time (PPP) 37.9 s High 9.8-12.7 [facility] Comment on above: Result Comment: MARY LOPEZ NOTE NEW REFERENCE RANGE EFFECTIVE 2017 Performed By: #### [id number] #### [facility] [address] [place] [address] Prothrombin Timeon 8 INR Coag RelTime (PPP) 2.56 {INR} High 0.90-1.10 [facility] Comment on above: Result Comment: MARY LOPEZ NOTE NEW REFERENCE RANGE EFFECTIVE 2017 Performed By: #### [id number] #### [facility] [address] [place] [address] Prothrombin time (PT) Coag time (PPP) 28.7 s High 9.8-12.7 [facility] Comment on above: Result Comment: MARY LOPEZ NOTE NEW REFERENCE RANGE EFFECTIVE 2017 Performed By: #### [id number] #### [facility] [address] [place] [address] Prothrombin Timeon 8 INR Coag RelTime (PPP) 2.28 {INR} High 0.90-1.10 [facility] Comment on above: Result Comment: MARY LOPEZ NOTE NEW REFERENCE RANGE EFFECTIVE 2017 Performed By: #### [id number] #### [facility] [address] [place] [address] Prothrombin time (PT) Coag time (PPP) 25.5 s High 9.8-12.7 [facility] Comment on above: Result Comment: MARY LOPEZ NOTE NEW REFERENCE RANGE EFFECTIVE 2017 Performed By: #### [id number] #### [facility] [address] [place] [address] Vital Signs Date Time Vital Sign Value Performing Clinician Facility 06-24-2024 05:07-0500 Body weight 82 kg Felipe Johnson MD Work Phone: [facility] 06-24-2024 05:00-0500 Body temperature 97.5 [degF] Felipe Johnson MD Work Phone: [facility] 06-24-2024 05:00-0500 Diastolic blood pressure 84 mm[Hg] Felipe Johnson MD Work Phone: [facility] 06-24-2024 05:00-0500 Heart rate 54 /min Felipe Johnson MD Work Phone: [facility] 06-24-2024 05:00-0500 Respiratory rate 18 /min Felipe Johnson MD Work Phone: [facility] 06-24-2024 05:00-0500 SaO2% (BldA) [Mass fraction] 96 % Felipe Johnson MD Work Phone: [facility] 06-24-2024 05:00-0500 Systolic blood pressure 140 mm[Hg] Felipe Johnson MD Work Phone: [facility] 06-21-2024 12:41-0500 Body height 167.64 cm Felipe Johnson MD Work Phone: [facility] 06-20-2024 15:53-0500 Body temperature 98.4 [degF] Felipe Johnson MD Work Phone: [facility] 06-20-2024 15:53-0500 Diastolic blood pressure 78 mm[Hg] Felipe Johnson MD Work Phone: [facility] 06-20-2024 15:53-0500 Heart rate 93 /min Felipe Johnson MD Work Phone: [facility] 06-20-2024 15:53-0500 Respiratory rate 18 /min Felpie Johnson MD Work Phone: [facility] 06-20-2024 15:53-0500 SaO2% (BldA) [Mass fraction] 98 % Felipe Johnson MD Work Phone: [facility] 06-20-2024 15:53-0500 Systolic blood pressure 132 mm[Hg] Felipe Johnson MD Work Phone: [facility] 06-20-2024 04:49-0500 Body weight 83.2 kg Felipe Johnson MD Work Phone: [facility] 06-19-2024 09:00-0500 Inhaled oxygen flow rate 2 L/min Felipe Johnson MD Work Phone: [facility] 06-17-2024 15:21-0500 Body height 165.1 cm Felipe Johnson MD Work Phone: [facility] 06-16-2024 14:00-0500 Inhaled oxygen concentration 30 % Felipe Johnson MD Work Phone: [facility] 05-17-2024 08:43-0500 Body height 163.83 cm [facility] 05-17-2024 08:43-0500 Body mass index (BMI) [Ratio] 29.4 kg/m2 [facility] 05-17-2024 08:43-0500 Body weight 78.92 kg [facility] 05-17-2024 08:43-0500 Diastolic blood pressure 86 mm[Hg] [facility] 05-17-2024 08:43-0500 Heart rate 73 /min [facility] 05-17-2024 08:43-0500 Systolic blood pressure 165 mm[Hg] [facility] 05-16-2024 13:13-0500 Diastolic blood pressure 82 mm[Hg] Frandy Cabrera MD Work Phone: [facility] 05-16-2024 13:13-0500 Systolic blood pressure 155 mm[Hg] Frandy Cabrera MD Work Phone: [facility] 05-16-2024 12:56-0500 Body height 167.6 cm Frandy Cabrera MD Work Phone: [facility] 05-16-2024 12:56-0500 Body mass index (BMI) [Ratio] 28.21 kg/m2 Frandy Cabrera MD Work Phone: [facility] 05-16-2024 12:56-0500 Body weight 79.29 kg Frandy Cabrera MD Work Phone: [facility] 05-16-2024 12:56-0500 Heart rate 88 /min Frandy Cabrera MD Work Phone: [facility] 05-12-2024 09:35-0500 Body height 167.6 cm Indra Haynes DPM Work Phone: [facility] 05-12-2024 09:35-0500 Body mass index (BMI) [Ratio] 32.28 kg/m2 Indra Haynes DPM Work Phone: [facility] 05-12-2024 09:35-0500 Body weight 90.72 kg Indra Haynes DPM Work Phone: [facility] 05-12-2024 09:35-0500 Respiratory rate 16 /min Indra Haynes DPM Work Phone: [facility] 04-20-2024 10:26-0500 Body height 163.83 cm [facility] 04-20-2024 10:26-0500 Body mass index (BMI) [Ratio] 29.5 kg/m2 [facility] 04-20-2024 10:26-0500 Body weight 79.37 kg [facility] 04-20-2024 10:26-0500 Diastolic blood pressure 72 mm[Hg] [facility] 04-20-2024 10:26-0500 Heart rate 71 /min [facility] 04-20-2024 10:26-0500 Systolic blood pressure 137 mm[Hg] [facility] 01-28-2024 08:45-0400 Body height 167.6 cm Indra Haynes DPM Work Phone: [facility] 01-28-2024 08:45-0400 Body mass index (BMI) [Ratio] 32.28 kg/m2 Indra Haynes DPM Work Phone: [facility] 01-28-2024 08:45-0400 Body weight 90.72 kg Indra Haynes DPM Work Phone: [facility] 01-28-2024 08:45-0400 Diastolic blood pressure 82 mm[Hg] Indra Haynes DPM Work Phone: [facility] 01-28-2024 08:45-0400 Heart rate 74 /min Indra Haynes DPM Work Phone: [facility] 01-28-2024 08:45-0400 Respiratory rate 18 /min Indra Haynes DPM Work Phone: [facility] 01-28-2024 08:45-0400 Systolic blood pressure 128 mm[Hg] Indra Haynes DPM Work Phone: [facility] 09-28-2023 09:10-0400 Diastolic blood pressure 80 mm[Hg] Karson Lopez MD Work Phone: [facility] 09-28-2023 09:10-0400 Systolic blood pressure 130 mm[Hg] Karson Lopez MD Work Phone: [facility] 09-28-2023 08:35-0400 Body height 167.6 cm Karson Lopez MD Work Phone: [facility] 09-28-2023 08:35-0400 Body mass index (BMI) [Ratio] 29.05 kg/m2 Karson Lopez MD Work Phone: [facility] 09-28-2023 08:35-0400 Body weight 81.65 kg Karson Lopez MD Work Phone: [facility] 09-28-2023 08:35-0400 Heart rate 60 /min Karson Lopez MD Work Phone: [facility] 09-29-2022 08:06-0400 Body height 165.1 cm Felipe Johnson Work Phone: [facility] DO Work Phone: 09-29-2022 08:06-0400 Body mass index (BMI) [Ratio] 29.45 kg/m2 Felipe Johnson Work Phone: [facility] DO Work Phone: 09-29-2022 08:06-0400 Body surface area Derived from formula 1.88 m2 Felipe Johnson Work Phone: [facility] DO Work Phone: 09-29-2022 08:06-0400 Body weight 80.29 kg Felipe Johnson Work Phone: [facility] DO Work Phone: 09-29-2022 08:06-0400 Diastolic blood pressure 82 mm[Hg] Felipe Johnson Work Phone: [facility] DO Work Phone: 09-29-2022 08:06-0400 Heart rate 88 /min Felipe Johnson Work Phone: [facility] DO Work Phone: 09-29-2022 08:06-0400 Systolic blood pressure 138 mm[Hg] Felipe Johnson Work Phone: [facility] DO Work Phone: 03-17-2022 00:00-0500 94.6 1 Felipe Johnson Work Phone: [facility] DO Work Phone: Comment on above: [facility] 02-12-2022 16:38-0400 Body height 165.1 cm Felipe Johnson Work Phone: [facility] DO Work Phone: 02-12-2022 16:38-0400 Body mass index (BMI) [Ratio] 29.95 kg/m2 Felipe Johnson Work Phone: [facility] DO Work Phone: 02-12-2022 16:38-0400 Body surface area Derived from formula 1.89 m2 Felipe Johnson Work Phone: [facility] DO Work Phone: 02-12-2022 16:38-0400 Body weight 81.65 kg Felipe Johnson Work Phone: [facility] DO Work Phone: 02-12-2022 16:38-0400 Diastolic blood pressure 76 mm[Hg] Felipe Johnson Work Phone: [facility] DO Work Phone: 02-12-2022 16:38-0400 Heart rate 60 /min Felipe Johnson Work Phone: [facility] DO Work Phone: 02-12-2022 16:38-0400 Systolic blood pressure 130 mm[Hg] Felipe Johnson Work Phone: [facility] DO Work Phone: 02-12-2022 15:13-0400 Diastolic blood pressure 76 mm[Hg] Felipe Johnson Work Phone: [facility] DO Work Phone: 02-12-2022 15:13-0400 Systolic blood pressure 160 mm[Hg] Felipe Johnson Work Phone: [facility] [address] DO Work Phone: 02-12-2022 14:46-0400 Body height 165.1 cm Felipe Johnson Work Phone: [facility] DO Work Phone: 02-12-2022 14:46-0400 Body mass index (BMI) [Ratio] 29.95 kg/m2 Felipe Johnson Work Phone: [facility] DO Work Phone: 02-12-2022 14:46-0400 Body surface area Derived from formula 1.89 m2 Felipe Johnson Work Phone: [facility] DO Work Phone: 02-12-2022 14:46-0400 Body weight 81.65 kg Felipe Johnson Work Phone: [facility] DO Work Phone: 02-12-2022 14:46-0400 Diastolic blood pressure 82 mm[Hg] Felipe Johnson Work Phone: [facility] DO Work Phone: 02-12-2022 14:46-0400 Heart rate 60 /min Felipe Johnson Work Phone: [facility] DO Work Phone: 02-12-2022 14:46-0400 Systolic blood pressure 168 mm[Hg] Felipe Johnson Work Phone: [facility] DO Work Phone: 06-04-2021 10:35-0500 Diastolic blood pressure 78 mm[Hg] Felipe Johnson Work Phone: [facility] DO Work Phone: 06-04-2021 10:35-0500 Systolic blood pressure 128 mm[Hg] Felipe Johnson Work Phone: [facility] DO Work Phone: 06-04-2021 10:00-0500 Diastolic blood pressure 84 mm[Hg] Felipe Johnson Work Phone: [facility] DO Work Phone: 06-04-2021 10:00-0500 Systolic blood pressure 154 mm[Hg] Felipe Johnson Work Phone: [facility] DO Work Phone: 06-04-2021 09:58-0500 Body height 165.1 cm Felipe Johnson Work Phone: [facility] DO Work Phone: 06-04-2021 09:58-0500 Body mass index (BMI) [Ratio] 30.12 kg/m2 Felipe Johnson Work Phone: [facility] DO Work Phone: 06-04-2021 09:58-0500 Body surface area Derived from formula 1.9 m2 Felipe Johnson Work Phone: [facility] DO Work Phone: 06-04-2021 09:58-0500 Body weight 82.1 kg Felipe Johnson Work Phone: [facility] DO Work Phone: 06-04-2021 09:58-0500 Diastolic blood pressure 101 mm[Hg] Felipe Johnson Work Phone: [facility] DO Work Phone: 06-04-2021 09:58-0500 Heart rate 84 /min Felipe Johnson Work Phone: [facility] DO Work Phone: 06-04-2021 09:58-0500 Systolic blood pressure 161 mm[Hg] Felipe Johnson Work Phone: [facility] DO Work Phone: Encounters Encounter Date Encounter Type Care Provider Facility Start: 06-24-2024 Non-patient / Non-visit Felipe Johnson MD Work Phone: [facility] Work Phone: Start: 06-21-2024 Non-patient / Non-visit Felipe Johnson MD Work Phone: [facility] Work Phone: Start: 06-20-2024 End: 06-24-2024 Evaluation and management of inpatient [facility] Facility:[facility] Start: 06-20-2024 Non-patient / Non-visit Felipe Johnson MD Work Phone: [facility] Work Phone: Start: 06-15-2024 Non-patient / Non-visit Felipe Johnson MD Work Phone: [facility] Work Phone: Start: 06-14-2024 Non-patient / Non-visit Felipe Johnson MD Work Phone: [facility] Work Phone: Start: 06-12-2024 Non-patient / Non-visit Felipe Johnson MD Work Phone: [facility] Work Phone: Start: 06-12-2024 Non-patient / Non-visit Felipe Johnson MD Work Phone: [facility] Work Phone: Start: 06-11-2024 End: 06-20-2024 Evaluation and management of inpatient Felipe Johnson MD Work Phone: [facility] Work Phone: Start: 06-11-2024 Non-patient / Non-visit Felipe Johnson MD Work Phone: [facility] Physician [facility] [place] Work Phone: Start: 05-24-2024 Non-patient / Non-visit Felipe Johnson MD Work Phone: [facility] Physician [facility] Work Phone: Start: 05-18-2024 End: 05-18-2024 Bamboo flowsheet Chi Lunsford DO Work Phone: [facility] Start: 05-18-2024 End: 05-18-2024 Bamboo flowsheet Chi Lunsford DO Work Phone: [facility] Start: 05-18-2024 End: 05-18-2024 ambulatory CHI LUNSFORD Not Available Start: 05-17-2024 End: 05-17-2024 ambulatory [facility] Work Phone: Start: 05-17-2024 End: 05-17-2024 Patient encounter procedure [facility] Work Phone: Start: 05-16-2024 End: 05-16-2024 Office outpatient visit 25 minutes Frandy Cabrera MD Work Phone: [facility] Comment on above: Permanent atrial fib rillation (Multi) (Primary Dx); Essential hypertension; Hyperlipidemia, unspecified hyperlipidemia type; Stage 3a chronic kidney disease (Multi); Palpitations; BMI 28.0-28.9,adult; Stage 3a chronic kidney disease (CKD) (Multi); Never smoked tobacco; Hyperlipidemia, unspecified; Essential (primary) hypertension; Microalbuminuria Start: 05-16-2024 End: 05-16-2024 [facility] Start: 05-12-2024 End: 05-12-2024 Bamboo flowsheet Indra NAVARRETE Work Phone: [facility] Start: 05-12-2024 End: 05-12-2024 Bamboo flowsheet Indra Haynes DPM Work Phone: [facility] Start: 05-12-2024 End: 05-12-2024 Patient encounter procedure Indra Haynes DPM Work Phone: [facility] Comment on above: Verruca plantaris (P rimary Dx); Foot pain, left; Pain due to onychomycosis of toenails of both feet; Venous insufficiency Start: 05-12-2024 End: 05-12-2024 ambulatory INDRA HAYNES Not Available Start: 04-25-2024 Non-patient / Non-visit [facility] Work Phone: Start: 04-20-2024 End: 04-20-2024 Patient encounter procedure [facility] Work Phone: Start: 04-19-2024 Non-patient / Non-visit [facility] Work Phone: Start: 02-29-2024 End: 02-29-2024 Bamboo flowsheet Milka Rich AUD Work Phone: [facility] Start: 02-29-2024 End: 02-29-2024 Bamboo flowsheet Milka S Rich AUD Work Phone: [facility] Start: 02-29-2024 End: 02-29-2024 Patient encounter procedure Milka S Rich AUD Work Phone: [facility] Comment on above: 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) Start: 02-29-2024 End: 02-29-2024 ambulatory MILKA RICH Not Available Start: 01-28-2024 End: 01-28-2024 Bamboo flowsheet Indra Haynes DPM Work Phone: [facility] Start: 01-28-2024 End: 01-28-2024 Bamboo flowsheet Indra Haynes DPM Work Phone: [facility] Start: 01-28-2024 End: 01-28-2024 Patient encounter procedure Indra Haynes DPM Work Phone: [facility] Comment on above: Verruca plantaris (P rimary Dx); Foot pain, left; Onychomycosis; Toe pain, bilateral; Venous insufficiency Start: 01-28-2024 End: 01-28-2024 ambulatory INDRA HAYNES Not Available Start: 01-08-2024 End: 01-08-2024 Bamboo flowsheet Chi Lunsford DO Work Phone: [facility] Start: 01-08-2024 End: 01-08-2024 Bamboo flowsheet Chi Lunsford DO Work Phone: [facility] Start: 01-08-2024 End: 01-08-2024 ambulatory CHI LUNSFORD Not Available Start: 11-19-2023 End: 11-19-2023 ambulatory INDRA HAYNES Not Available Start: 09-28-2023 End: 09-28-2023 Office outpatient visit 25 minutes Karson Lopez MD Work Phone: [facility] Comment on above: Chronic atrial fibri llation (Multi) (Primary Dx); Essential hypertension; Mixed hyperlipidemia; Hyperlipidemia, unspecified Start: 09-28-2023 End: 09-28-2023 ambulatory KARSON LOPEZ [facility] Start: 09-10-2023 End: 09-10-2023 ambulatory INDRA HAYNES Not Available Start: 09-04-2023 End: 09-04-2023 ambulatory CHI LUNSFORD Not Available Start: 08-28-2023 End: 08-28-2023 ambulatory MILKA RICH Not Available Start: 08-06-2023 End: 08-06-2023 ambulatory EVER SQUIRES Not Available Start: 08-05-2023 End: 08-05-2023 ambulatory MILKA RICH Not Available Start: 07-14-2023 End: 07-14-2023 ambulatory MILKA S SHARRI Not Available Start: 07-02-2023 End: 07-02-2023 ambulatory INDRA HAYNES Not Available Start: 06-15-2023 Refill Elise May schilling COT Work Phone: [facility] Comment on above: Rce (recurrent corne al erosion), left (Primary Dx) Start: 06-05-2023 End: 06-05-2023 ambulatory CHI LUNSFORD Not Available Start: 06-02-2023 End: 06-02-2023 ambulatory EVER Jony SQUIRES Not Available Start: 05-26-2023 End: 05-26-2023 ambulatory EVER Jony SQUIRES Not Available Start: 10-07-2022 End: 10-08-[address] KARSON LOPEZ Facility:[facility]1 Start: 10-02-2022 Rx Renewal Felipe Johnson Work Phone: [facility] DO Work Phone: Start: 09-12-2022 Patient encounter procedure Felipe Johnson Work Phone: [facility] DO Work Phone: Start: 09-11-2022 End: 09-11-[address] KARSON LOPEZ Facility:[facility] Start: 08-14-2022 End: 09-08-[address] KARSON LOPEZ Facility:[facility] Start: 08-11-2022 End: 08-12-[address] DOCTOR VILLEDA Facility:[facility] Start: 07-30-2022 End: 07-31-[address] KARSON LOPEZ Facility:[facility] Start: 07-23-2022 Rx Renewal Felipe Johnson Work Phone: [facility] DO Work Phone: Start: 06-18-2022 End: 07-09-[address] KARSON LOPEZ Facility:[facility] Start: 06-09-2022 End: 06-10-[address] KARSON LOPEZ Facility:[facility] Start: 05-19-2022 End: 05-20-[address] KARSON LOPEZ Facility:[facility] Start: 04-28-2022 End: 04-29-[address] KARSON LOPEZ Facility:[facility] Start: 03-26-2022 End: 03-27-[address] FELIPE JOHNSON Facility:[facility] Start: 03-20-2022 Rx Renewal Felipe Johnson Work Phone: [facility] DO Work Phone: Start: 03-17-2022 End: 03-18-[address] FELIPE JOHNSON Facility:[facility] Start: 02-26-2022 End: 02-27-[address] KARSON LOPEZ Facility:[facility] Start: 02-12-2022 Office outpatient vi sit 15 minutes Felipe Johnson Work Phone: [facility] DO Work Phone: Start: 02-12-[address] Felipe Johnson Facility:[id number] Start: 02-06-2022 End: 02-07-[address] KARSON LOPEZ Facility:[facility] Start: 01-22-2022 End: 01-23-[address] KARSON LOPEZ Facility:[facility] Start: 12-30-2021 Rx Renewal Felipe Johnson Work Phone: [facility] DO Work Phone: Start: 12-24-2021 End: 12-25-[address] KARSON LOPEZ Facility:[facility]1 Start: 11-29-2021 Rx Renewal Felipe Johnson Work Phone: [facility] DO Work Phone: Start: 11-28-2021 End: 11-28-2021 ambulatory HORACE Ovalles Facility:[facility]1 Start: 11-27-2021 End: 11-28-[address] FELIPE JOHNSON Facility:[facility]1 Start: 11-04-2021 Rx Renewal Felipe Johnson Work Phone: [facility] DO Work Phone: Start: 09-30-2021 Rx Renewal Felipe Johnson Work Phone: [facility] DO Work Phone: Start: 07-23-2021 Rx Renewal Felipe Lucia Johnson Work Phone: [facility] DO Work Phone: Start: 06-27-2021 Rx Renewal Felipe Johnson Work Phone: [facility] DO Work Phone: Start: 06-04-2021 Office outpatient vi sit 25 minutes Felipe Johnson Work Phone: [facility] DO Work Phone: Start: 06-04-2021 ambulatory Karson Delacruzmark II Faci lity:[id number] Start: 02-11-2021 Patient encounter procedure Felipe Johnson Work Phone: [facility] DO Work Phone: Start: 08-02-2018 Patient encounter procedure KARSON Hurst [place] Facility:[id number] Start: 07-06-2018 Patient encounter procedure KARSON Hurst [place] Facility:[id number] Start: 06-08-2018 Patient encounter procedure KARSON LOPEZ Facility:[id number] Start: 05-27-2018 Patient encounter procedure KARSON LOPEZ Facility:[id number] Start: 05-13-2018 Patient encounter procedure KARSON LOPEZ Facility:[id number] Start: 04-15-2018 Patient encounter procedure KARSON LOPEZ Facility:[id number] Start: 03-23-2018 Patient encounter procedure KARSON LOPEZ Facility:[id number] Start: 03-03-2018 Patient encounter procedure KARSON LOPEZ Facility:[id number] Start: 02-15-2018 Patient encounter procedure KARSON LOPEZ Facility:[id number] Start: 01-07-2018 Patient encounter procedure KARSON LOPEZ Facility:[id number] Start: 12-09-2017 Patient encounter procedure KARSON Hurst [place] Facility:[id number] Start: 11-12-2017 Patient encounter procedure KARSON LOPEZ Facility:[id number] Start: 06-11-2018 Patient encounter procedure KARSON LOPEZ Facility:[id number] Start: 09-16-2017 Patient encounter procedure KARSON LOPEZ Facility:[id number] Start: 08-13-2017 Patient encounter procedure KARSON LOPEZ Facility:[id number] Procedures Date Procedure Procedure Detail Performing Clinician Start: 06-16-2024 Plain chest X-ray Jessica Johnson MD Work Phone: Start: 06-15-2024 CL Coronary Angio Jessica Johnson MD Work Phone: Start: 06-15-2024 Plain chest X-ray Jessica Johnson MD Work Phone: Start: 06-14-2024 Plain chest X-ray Jessica Johnson MD Work Phone: Start: 06-14-2024 Plain X-ray abdomen Karey Johnson MD Work Phone: Start: 06-14-2024 Plain chest X-ray Jessica Johnson MD Work Phone: Start: 06-14-2024 Ultrasonography of bilateral kidneys Felipe Johnson MD Work Phone: Start: 06-13-2024 Antibody screen Augustus Nobles Comment on above: Order Comment: Trans fuse now? N Number of units to transfuse now? 0 Transfuse now? Y Number of units to transfuse now? 2 Transfuse now? Y Number of units to transfuse now? 2 Transfuse now? Y Number of units to transfuse now? 2 Result Comment: PERF ORMED BY: [facility] [address] [place] [address] PATHOLOGIST [employer] MIKY TOMAS M.D. Start: 06-12-2024 Bacteria identified in Blood by Culture Felipe Johnson MD Work Phone: Start: 06-12-2024 Plain chest X-ray Jessica Johnson MD Work Phone: Start: 05-18-2024 Visual field xm uni/ bi w/interp extended exam Chi Lunsford DO Work Phone: Start: 05-18-2024 End: 05-18-2024 Oph medical xm&eval intermediate estab pt Primary open angle glaucoma (POAG) of both eyes, mild stage (CMS/HCC) Chi Lunsford DO Work Phone: Comment on above: Primary open angle g laucoma (POAG) of both eyes, mild stage (CMS/HCC) (Primary Dx); Herpes simplex virus (HSV) stromal keratitis; Keratoconjunctivitis sicca of both eyes not specified as Sjogren's; Type 2 diabetes mellitus without complication, without long-term current use of insulin (CMS/HCC); Rce (recurrent corneal erosion), left Start: 01-08-2024 Computerized ophthal palak imaging optic nerve Chi Lunsford DO Work Phone: Start: 01-08-2024 End: 01-08-2024 [facility] medical xm&eval comprhnsv estab pt 1/> Primary open angle glaucoma (POAG) of both eyes, mild stage (CMS/HCC) Chi Lunsford DO Work Phone: Comment on above: Primary [...] Felipe Johnson Work Phone: Comment on above: [id number] Sarthak Shi; Surgical procedure o n eye proper Felipe Johnson Work Phone: Plan of Treatment Date Care Activity Detail Author Start: 12-07-2024 End: 12-07-2024 Patient encounter procedure 12/07/2024 9:10 AM EDT Office Visit [facility] [address] [address] Frandy Cabrera MD [address] [facility] [address] [place] [address] [facility] Start: 09-13-2024 End: 09-13-2024 Patient encounter procedure 09/13/2024 10:45 AM EDT Appointment [facility] [address] [facility] [address] [place] [phone] [facility] Start: 07-28-2024 End: 07-28-2024 Patient encounter procedure 07/28/2024 10:10 AM EDT Procedure Visit [facility] [address] [facility] [address] [place] [id number] Indra Haynes, DPM [address] [facility] [address] [place] [address] [facility] Start: 07-27-2024 End: 07-27-2024 Patient encounter procedure 07/27/2024 9:00 AM EDT Office Visit [facility] [address] [place] [id number] Milka Rich, AUD [address] [place] [address] [facility] Start: 06-30-2024 [facility] Start: 06-29-2024 [facility] Start: 06-28-2024 [facility] Start: 06-27-2024 [facility] Start: 06-26-2024 [facility] Start: 06-25-2024 [facility] Start: 06-24-2024 [facility] Start: 06-23-2024 [facility] Start: 06-22-2024 [facility] Start: 06-21-2024 [facility] Start: 06-20-2024 Hospital admission [facility] Start: 06-20-2024 Referral to clinical percussion instructor [facility] Start: 06-20-2024 [facility] Start: 06-20-2024 [facility] Start: 06-20-2024 Referral to rehabilitation physician [facility] Start: 06-17-2024 [facility] Start: 06-15-2024 [facility] Start: 06-14-2024 Referral to supervisor mold shop [facility] Start: 06-13-2024 Referral to phlebotomy services representative [facility] Start: 06-12-2024 Hospital admission [facility] Start: 06-12-2024 [facility] Start: 05-18-2024 End: 05-18-2024 Patient encounter procedure [facility] Comment on above: Arrived Start: 05-16-2024 End: 05-16-2026 US Heart Transthoracic Transthoracic Echo Complete Echocardiography Routine Permanent atrial fibrillation (Multi) BMI 28.0-28.9,adult Expected: 05/16/2024 (Approximate), Expires: 05/16/2026 [facility] Service Area Work Phone: Comment on above: Expected: 05/16/2024 (Approximate), Expi res: 05/16/2026 Start: 05-12-2024 End: 05-12-2024 Patient encounter procedure 05/12/2024 10:10 AM EST Procedure Visit [facility] 112 [facility] [address] [place] [address] Indra Haynes DPM [address] [facility] [address] [place] [address] Verruca plantaris (Primary Dx); Foot pain, left; Pain due to onychomycosis of toenails of both feet; Venous insufficiency [facility] Comment on above: Verruca plantaris (Primary Dx); Foot pain, left; Pain due to onychomycosis of toenails of both feet; Venous insufficiency Start: 04-20-2024 End: 04-20-2024 Patient encounter procedure 04/20/2024 9:20 AM EST Office Visit [facility] 703 [facility] [address] [place] [address] Frandy Cabrera MD 703 [facility] [address] [place] [address] [facility] Start: 04-14-2024 End: 04-14-2024 Patient encounter procedure 04/14/2024 8:30 AM EST Procedure Visit [facility] 112 [facility] [address] [place] [address] Indra Haynes, DPTrinity [address] [facility] [address] [place] [address] [facility] Start: 02-29-2024 End: 02-29-2024 Patient encounter procedure [facility] Comment on above: Arrived Start: 01-28-2024 End: 01-28-2024 Patient encounter procedure [facility] Comment on above: Verruca plantaris (Primary Dx); Foot pain, left; Onychomycosis; Toe pain, bilateral; Venous insufficiency Start: 01-10-2024 COVID-19 Vaccine ( season) COVID-19 Vaccine () [facility] Start: 01-10-2024 Influenza vaccination Influenza Vaccine (#1) [facility] Start: 01-08-2024 End: 01-08-2024 Patient encounter procedure 01/08/2024 10:00 AM EDT Office Visit [facility] [address] [place] [address] Chi Lunsford, DO [address] [place], [place] [id number] Arrived [facility] Comment on above: Arrived Start: 09-28-2023 FUV, Provider: Karson Lopez, Status: Pen, Time: 8:00 AM FUV, Provider: Karson Lopez, Status: Azeem, Time: 8:00 AM [facility] 250 DO Work Phone: Start: 09-04-2023 End: 09-04-2023 Patient encounter procedure 09/04/2023 9:00 AM EDT Office Visit [facility] [address] [place] [phone] Chi Lunsford, DO [address] [place] [address] [facility] Start: 07-14-2023 End: 07-14-2023 Patient encounter procedure 07/14/2023 9:30 AM EST Office Visit [facility] [address] [place] [phone] Milak Rich, AUD [address] [place] [address] [facility] Start: 07-02-2023 End: 07-02-2023 Patient encounter procedure 07/02/2023 8:30 AM EST Procedure Visit [facility] [address] [facility] [address] [place] [phone] Indra Haynes, DPTrinity [address] [facility] [address] [place] [address] [facility] Start: 01-09-2023 COVID-19 Vaccine ( season) COVID-19 Vaccine ( season) [facility] Start: 10-07-2022 FUV, Provider: Karson Lopez, Status: Azeem, Time: 11:00 AM FUV, Provider: Karson Lopez, Status: Pen, Time: 11:00 AM [facility] 250 DO Work Phone: Start: 09-29-2022 FUV, Provider: Karson Lopez, Status: Azeem, Time: 7:50 AM FUV, Provider: Karson Lopez, Status: Azeem, Time: 7:50 AM [facility] 250 DO Work Phone: Start: 02-12-2022 FUV, Provider: Karson Lopez, Status: Azeem, Time: 2:50 PM FUV, Provider: Karson Lopez, Status: Pen, Time: 2:50 PM [facility] 250 DO Work Phone: Start: 06-04-2021 FUV, Provider: Karson Lopez, Status: Pen, Time: 9:30 AM FUV, Provider: Karson Lopez, Status: Pen, Time: 9:30 AM [facility] 250 DO Work Phone: Start: 2020 RSV High Risk: (Elderly (60+) or Population) (1 - 1-dose 75+ series) RSV High Risk: (Elderly (60+) or Population) (1 - 1-dose 75+ series) [facility] Start: 2005 RSV patients and/or patients aged 60+ years (1 - 1-dose 60+ series) RSV patients and/or patients aged 60+ years (1 - 1-dose 60+ series) [facility] Start: 09-03-1995 Zoster Vaccines (1 of 2) Zoster Vaccines (1 of 2) [facility] Start: 09-03-1967 DTaP/Tdap/Td Vaccines (1 - Tdap) DTaP/Tdap/Td Vaccines (1 - Tdap) [facility] Start: 09-03-1963 Diabetes mellitus screening Diabetes Screening [facility] Start: 09-03-1963 Hepatitis C screening Hepatitis C Screening [facility] Start: 1945 Lipid panel Lipid Panel [facility] Start: 1945 Screening for osteoporosis Bone Density Scan [facility] Start: 1945 Yearly Adult Physical Yearly Adult Physical [facility] Comprehensive metabo lic 1999 panel - Serum or Plasma [facility] Comprehensive metabo lic 1999 panel - Serum or Plasma [facility] MG Breast - bilatera l Screening [facility] Patient Education [facility] Work Phone: Patient referral [facility] Work Phone: [facility] Immunizations Immunization Date Immunization Notes Care Provider Fa cilidwight 03-17-2024 influenza virus vacc ine, unspecified formulation Indra Haynes DPM Work Phone: [facility] 03-09-2024 Fluzone QIV High-Dos e 65YR+ [facility] 01-28-2023 influenza virus vacc ine, unspecified formulation Chi Daviddionicio DO Work Phone: [facility] 02-25-2022 influenza virus vacc ine, unspecified formulation [facility] 04-24-2021 Fluad Quadrivalent 0 .5 ML Intramuscular Prefilled Syringe Felipe Johnson Work Phone: [facility] 250 DO Work Phone: 03-06-2021 Moderna COVID-19 Vac cine 100 MCG/0.5ML Intramuscular Suspension Felipe Johnson Work Phone: [facility] 250 DO Work Phone: 07-24-2020 Moderna COVID-19 Vac cine 100 MCG/0.5ML Intramuscular Suspension Felipe Johnson Work Phone: [facility] 250 DO Work Phone: 06-28-2020 Moderna COVID-19 Vac cine 100 MCG/0.5ML Intramuscular Suspension Felipe Johnson Work Phone: [facility] 250 DO Work Phone: 01-17-2020 influenza virus vacc ine, unspecified formulation [facility] 01-10-2020 influenza, high dose seasonal, preservative-free Felipe Johnson Work Phone: [facility] 250 DO Work Phone: 02-09-2019 influenza virus vacc ine, unspecified formulation [facility] 02-09-2019 pneumococcal polysaccharide vaccine, 23 valent [facility] 02-08-2019 influenza virus vacc ine, unspecified formulation Felipe Johnson Work Phone: [facility] 250 DO Work Phone: 03-02-2018 influenza virus vacc ine, unspecified formulation [facility] 03-02-2018 Seasonal trivalent influenza vaccine, adjuvanted, preservative free Felipe E Johnson Work Phone: [place] [address] DO Work Phone: 02-08-2018 influenza virus vacc ine, unspecified formulation Felipe E Johnson Work Phone: [place] [address] DO Work Phone: 02-19-2017 influenza virus vacc ine, unspecified formulation Felipe E Johnson Work Phone: [facility] 02-19-2017 influenza, high dose seasonal, preservative-free Karson Lopez MD Work Phone: [facility] Work Phone: 02-04-2016 influenza virus vacc ine, unspecified formulation [facility] 02-04-2016 influenza, high dose seasonal, preservative-free Felipe E Johnson Work Phone: [place] [address] DO Work Phone: 01-10-2016 influenza virus vacc ine, unspecified formulation Felipe E Johnson Work Phone: [place] [address] DO Work Phone: 01-10-2016 pneumococcal conjuga te vaccine, 13 valent Felipe E Johnson Work Phone: [place] [address] DO Work Phone: 10-15-2015 pneumococcal conjuga te vaccine, 13 valent [facility] 02-14-2015 influenza virus vacc ine, unspecified formulation [facility] 02-08-2015 influenza virus vacc ine, unspecified formulation Felipe E Johnson Work Phone: [facility] 250 DO Work Phone: 02-14-2014 tetanus and diphther ia toxoids, adsorbed, preservative free, for adult use (5 Lf of tetanus toxoid and 2 Lf of diphtheria toxoid) [facility] 02-08-2014 influenza virus vacc ine, unspecified formulation Felipe Johnson Work Phone: [facility] 250 DO Work Phone: 05-11-2012 influenza virus vacc ine, unspecified formulation Fel[facility] E Johnson [facility] Phone: [facility] DO Work Phone: 05-11-2012 pneumococcal polysaccharide vaccine, 23 valent Felipe Myers Johnson Work Phone: [facility] 250 DO Work Phone: 05-11-2011 influenza virus vacc ine, unspecified formulation Felipe E Johnson Work Phone: [facility] 250 DO Work Phone: 05-11-2010 influenza virus vacc ine, unspecified formulation Felipe Myers Johnson Work Phone: [facility] 250 DO Work Phone: 05-11-2010 pneumococcal polysaccharide vaccine, 23 valent Felipe Johnson Work Phone: [facility] 250 DO Work Phone: 06-27-2009 novel influenza-H1N1 -09, preservative-free, injectable Felipe Johnson Work Phone: [facility] 250 DO Work Phone: 03-11-2009 influenza virus vacc ine, unspecified formulation Felipe Myers Johnson Work Phone: [facility] 250 DO Work Phone: Payers Date Payer Category Payer Self-pay 2024 Unknown [id number] 2022 Unknown 2022 Private Health Insurance [id number] 2010 Medicare [id number] 1959 Medicare [id number] 1959 Unknown [id number] 1945 Unknown [id number] .16.8 40.1.234302.3.579.2. 1945 Unknown [id number] .16.8 40.1.962063.3.579.2.355 1945 Unknown [id number] ..[id number] 40.1.482864.3.579.2. 1945 Unknown [id number] ..[id number] 40.1.812319.3.579.2. 1945 Unknown [id number] .. 40.1.657129.3.579.2. 1945 Unknown [id number] ..[id number] 40.1.869972.3.579.2. 1945 Unknown [id number] ..[id number] 40.1.715868.3.579.2.355 1945 Unknown [id number] ..[id number] 40.1.955444.3.579.2. 1945 Unknown [id number] ..[id number] 40.1.028865.3.579.2.355 1945 Unknown [id number] ..[id number] 40.1.920894.3.579.2.355 1945 Unknown [id number] .16.8 40.1.721820.3.579.2.355 1945 Unknown [id number] ..[id number] 40.1.362174.3.579.2.355 1945 Unknown [id number] .16.8 40.1.510559.3.579.2. 1945 Unknown [id number] .16.8 40.1.188679.3.579.2.355 1945 Unknown [id number] .16.8 40.1.885497.3.579.2. 1945 Unknown [id number] 2.16. 840.1.643569.3.579.2.356 1945 Unknown [id number] 2.16. 840.1.748266.3.579.2.356 1945 Unknown [id number] 2.16.84 0.1.789029.3.579.2.593 1945 Unknown [id number] 2.16.84 0.1.872645.3.579.2.593 1945 Unknown [id number] 2.16.84 0.1.831448.3.579.2.593 1945 Unknown [id number] 2.16.84 0.1.954449.3.579.2.593 1945 Unknown [id number] 2.16.84 0.1.584766.3.579.2.593 1945 Unknown [id number] 2.16.84 0.1.990509.3.579.2.593 1945 Unknown [id number] 2.16.84 0.1.172181.3.579.2.593 1945 Unknown [id number] 2.16.84 0.1.820324.3.579.2.593 1945 Unknown [id number] 2.16.84 0.1.626058.3.579.2.593 1945 Unknown [id number] 2.16.84 0.1.147857.3.579.2.593 1945 Unknown [id number] 2.16.84 0.1.266897.3.579.2.593 1945 Unknown [id number] 2.16.84 0.1.887656.3.579.2.593 1945 Unknown [id number] 2.16.84 0.1.807806.3.579.2.593 1945 Unknown [id number] 2.16.84 0.1.067312.3.579.2.593 1945 Unknown [id number] 2.16.84 0.1.438631.3.579.2.593 1945 Unknown [id number] 2.16.84 0.1.997173.3.579.2.593 1945 Unknown [id number] 2.16.84 0.1.393261.3.579.2.593 1945 Unknown [id number] 2.16. 840.1.189603.3.579.2.1244 1945 Unknown [id number] 2.16.8 40.1.614245.3.579.2.1244 1945 Unknown [id number] 2.16.84 0.1.459765.3.579.2.1259 1945 Unknown [id number] 2.16.84 0.1.878533.3.579.2.1259 1945 Unknown [id number] 2.16.84 0.1.110740.3.579.2.1259 1945 Unknown [id number] 2.16.84 0.1.434113.3.579.2.1259 1945 Unknown [id number] 2.16.84 0.1.905919.3.579.2.1259 1945 Unknown [id number] 2.16.84 0.1.540225.3.579.2.1259 1945 Unknown [id number] 2.16.84 0.1.329932.3.579.2.1259 1945 Unknown [id number] 2.16.84 0.1.399856.3.579.2.1259 1945 Unknown [id number] 2.16.84 0.1.504234.3.579.2.1259 1945 Unknown [id number] 2.16.84 0.1.956794.3.579.2.1259 1945 Unknown [id number] 2.16.84 0.1.965155.3.579.2.1259 1945 Unknown [id number] 2.16.84 0.1.697673.3.579.2.1259 1945 Unknown [id number] 2.16.84 0.1.741606.3.579.2.9 1945 Unknown [id number] 2.16.84 0.1.547616.3.579.2.1259 1945 Unknown [id number] 2.16.84 0.1.651557.3.579.2.9 1945 Unknown [id number] 2.16.84 0.1.494264.3.579.2.1259 Private Health Insurance 1.2 .840.058749.1.13.647.2.7.3.863582.315 Unknown [id number] Medicare [id number] Unknown [id number] 2.16.8 40.1.514671.3.579.2.531 Unknown [id number] 2.16.8 40.1.403079.3.579.2.531 Social History Date Type Detail Facility Start: 05-19-2023 End: 05-12-2024 No alcohol use No alcohol use [place] [address] DO Work Phone: Start: 11-06-2022 End: 06-21-2024 Tobacco smoking status SDIS Never smoked tobacco [facility] Start: 11-06-2022 End: 02-23-2023 Tobacco use and exposure Smokeless tobacco non-user [facility] Start: 06-05-2023 End: 05-18-2024 Alcohol intake Lifetime non-drinker (finding) [facility] Start: 05-19-2023 End: 05-12-2024 Tobacco use panel [facility] Start: 1945 Sex Assigned At Not on file N [facility] Start: 09-28-2023 End: 05-16-2024 Alcoholic beverage intake Ex-drinker (finding) [facility] Work Phone: Start: 09-18-2023 End: 05-16-2024 Exposure to SARS-CoV-2 (event) Not sure [facility] Tobacco smoking status NHIS Unknown if ever smoked [facility] Work Phone: Start: 05-17-2024 End: 06-24-2024 Sex Female (finding) [facility] Start: 1945 Sex Assigned At Female F [facility] Start: 06-24-2024 SDOH Follow up SDOH Follow up [facility] Work Phone: NEGATED: Highlighted rowStart: NINF History of tobacco use Passive smoker [facility] Medical Equipment Procedure Code Equipment Code Equipment Origin al Text Equipment Identifier Dates Blood Sugar Diagnostic (Onetouch Verio Test Strips) strip Start: 04-19-2024 Lancets (Onetouc h Delica Plus Lancet) 30 gauge misc Start: 04-19-2024 Blood Sugar Diagnostic (Onetouch Verio Test Strips) strip Start: 06-01-2024 Lancets (Onetouc h Delica Plus Lancet) 30 gauge misc Start: 04-19-2024 Blood Sugar Diagnostic (Onetouch Verio Test Strips) strip Start: 04-19-2024 End: 06-01-2024 Blood Sugar Diagnostic (Onetouch Verio Test Strips) strip Start: 06-01-2024 Lancets (Onetouc h Delica Plus Lancet) 30 gauge misc Start: 04-19-2024 Blood Sugar Diagnostic (Onetouch Verio Test Strips) strip Start: 04-19-2024 End: 06-01-2024 Goals Date Patient Goal Desired Activity /State Functional Status Date Assessment Result Facility 06-24-2024 Functional status Patient is Pro gressing Toward Baseline [facility] Work Phone: 06-20-2024 Functional status Disability Sta tus Patient is Progressing Toward Baseline [facility] Work Phone: 06-11-2024 Functional status Patient at Baseline [facility] Work Phone: Mental Status Date Assessment Result Facility 06-24-2024 Cognitive function Cognitive Sta tus Patient at Baseline [facility] Work Phone: 06-11-2024 Cognitive function Cognitive Sta tus Patient at Baseline [facility] Work Phone: Clinical Notes 07-03-2020 to 06-23-2024 Note Date & Type Note Facility 06-23-2024 Progress note Note Date/Time June 23, 2024 3:16pm [facility] [address] [place] [address] Physiatry(Rehab) Progress Note Signed Patient: Lyric Juarez MR#: [id number] : 1945 Acct:[id number] Age/Sex: 78 / F Adm Date: 5 Loc: Room: [address] [place] [address] Type: ADM IN Attending Dr: David Castellanos MD Copies to: ~ Date of Service: 06/23/2024 Subjective Subjective Narrative: Patient is 78-year-old female who presents with multifactorial functional decline in the setting of COVID-19 infection, severe CAD, septic shock. The patient initially presented to [facility] after a fall. Was found to be in afib with RVR, positive for COVID-19, as welll as significant troponin elevation. She was therefore transferred to [facility] for further care. Upon presentation, she sustained a syncopal episode. She was noted to be hypotensive and required pressor support. Blood cultures and broad-spectrum antibiotics were administered for presumed sepsis. However, an echocardiogram showed ejection fraction of 35%, with suggestion of apical ballooning syndrome/Takotsubo cardiomyopathy. Patient was seen by cardiology, and after elective endotracheal intubation as she could not lay flat, coronary angiogram was later performed on June 15, disclosing severe multiple vessel disease, including total occlusion of mid LAD, total occlusion of proximal RCA, 95% left circumflex stenosis. Patient was not felt to be a candidate for immediate revascularization or CABG due to her coronary anatomy. Medical therapy was recommended. The patient gradually improved. PM&R was consulted for evaluation for rehab. The patient was seen today. Sitting up in bed. She reports that she is doing quite well and feels ready to go home. She is asking to DC tomorrow. Functionally she is at an appropriate level for DC. she has been having some urinary retention and has required straight cathsx3. I discussed that we may need to place a huber prior to DC which she refused. She is requesting OP followup with urology which we will schedule. Review of Systems Review of Systems All other systems reviewed & are negative unless noted below or in HPI Exam Physical Exam Vital Signs: Temp Pulse Resp BP Pulse Ox O2 Del Method 97.5 F L 105 H 16 126/90 95 Room Air 06/23/24 05:56 06/23/24 05:56 06/23/24 05:56 06/23/24 05:56 06/23/24 05:56 06/23/24 07:30 Narrative: General: Awake, A&O x 3, pleasant, cooperative, well nourished. Resting comfortably in bed HENT: NC, AT Eyes: No scleral icterus Neck: Supple Cardio: Extremities well perfused Respiratory: CTAB, no wheezes rhonchi or rales. No evidence of respiratory distress GI: Soft, nontender, nondistended Neuro: CN II-XII intact. Noted right sided weakness compared to left Extremities: No edema, erythema, cyanosis Psych: Affect, speech and movements normal. Mood congruent Objective Labs 06/21/24 04:55 06/21/24 04:55 Labs: Laboratory Results - last 24 hr 06/22/24 06/22/24 06/23/24 16:43 21:58 05:23 PT 23.8 H INR 2.1 POC Glucose 122 147 POC Glucose Comment Glu2: cleaned meter 06/23/24 06/23/24 06:23 11:18 PT INR POC Glucose 107 145 POC Glucose Comment Medications and Allergies Allergies and Active Meds: Allergies flecainide Allergy (Unknown, Verified 05/17/24 08:07) Hives Active Medications Generic Name Dose Route Start Last Admin Trade Name Freq PRN Reason Stop Dose Admin Acetaminophen 500 mg 06/20/24 17:04 06/23/24 05:58 Acetaminophen 500 Mg Tablet PO 06/20/25 17:03 500 mg Q4H PRN Administration Pain Al Hydrox/Mg Hydrox/Simethicone 30 ml 06/20/24 17:04 Mag Hydrox/Al Hydrox/Simeth 30 Ml Udc PO 06/20/25 17:03 Q4H PRN Indigestion Atorvastatin Calcium 80 mg 06/27/24 21:00 Atorvastatin 80 Mg Tablet PO 06/27/25 20:59 QPM ERNESTINA Bisacodyl 10 mg 06/20/24 17:04 Bisacodyl 10 Mg Supp.Rect PA 06/20/25 17:03 DAILY PRN Constipation Clopidogrel Bisulfate 75 mg 06/21/24 09:00 06/23/24 09:02 Clopidogrel Bisulfate 75 Mg Tablet PO 06/21/25 08:59 75 mg DAILY ERNESTINA Administration Dapagliflozin 10 mg 06/21/24 09:00 06/23/24 09:02 Dapagliflozin 10 Mg Tablet PO 06/21/25 08:59 10 mg QAM ERNESTINA Administration Diphenhydramine HCl 25 mg 06/20/24 20:53 06/22/24 22:04 Diphenhydramine 25 Mg Capsule PO 06/20/25 20:52 25 mg HS PRN Administration Sleep Docusate Sodium 100 mg 06/20/24 17:04 Docusate 100 Mg Capsule PO 06/20/25 17:03 BID PRN Constipation Docusate Sodium 283 mg 06/20/24 17:04 Docusate Enema 283 Mg/5 Ml Enema PA 06/20/25 17:03 DAILY PRN Constipation Dorzolamide HCl 1 drops 06/21/24 09:00 06/23/24 09:03 Dorzolamide 2% Op Soln 200 Drops/10 Ml Bottle EYE-BOTH 06/21/25 08:59 1 drops DAILY ERNESTINA Administration Insulin Aspart 0 units 06/20/24 22:00 06/23/24 12:07 Insulin Aspart 300 Units/3 Ml SUBCUT 06/20/25 21:59 Not Given TID.WM.[facility] Protocol Isosorbide Mononitrate 60 mg 06/21/24 06:00 06/23/24 05:58 Isosorbide Mononitrate 24hr Er 60 Mg Tab.Er.24h PO 06/21/25 05:59 60 mg DAILY.6A ERNESTINA Administration Lactulose 30 gm 06/20/24 17:04 Lactulose 20 Gm/30 Ml Udc PO 06/20/25 17:03 DAILY PRN Constipation Metformin HCl 500 mg 06/21/24 09:00 06/23/24 09:02 Metformin 500 Mg Tablet PO 06/21/25 08:59 500 mg DAILY ERNESTINA Administration Metoprolol Succinate 50 mg 06/21/24 09:00 06/23/24 09:02 Metoprolol Succinate 50 Mg Tab.Er.24h PO 06/21/25 08:59 50 mg DAILY ERNESTINA Administration Ondansetron HCl 4 mg 06/21/24 08:18 06/21/24 11:45 Ondansetron Odt 4 Mg Tab.Rapdis PO 06/21/25 08:17 4 mg Q6HR PRN Administration Nausea And Vomiting Potassium Chloride 20 meq 06/21/24 09:00 06/23/24 09:02 Potassium Chloride Er 20 Meq Tab.Er.Prt PO 06/21/25 08:59 20 meq DAILY ERNESTINA Administration Sacubitril/Valsartan 1 tab 06/20/24 21:00 06/23/24 09:02 Sacubitril/Valsartan 24-26mg 1 Tab Tablet PO 06/20/25 20:59 1 tab BID ERNESTINA Administration Sennosides 17.2 mg 06/21/24 12:00 Sennosides 8.6 Mg Tablet PO 06/21/25 11:59 DAILY@12 PRN If no BM in 2 days Sodium Chloride 0 ml 06/20/24 17:04 Sodium Chloride 0.9 % 10 Ml Syringe IV-PUSH 06/20/25 17:03 PRN PRN Flush Sodium Chloride 10 ml 06/21/24 09:00 06/23/24 09:03 Sodium Chloride 0.9 % 10 Ml Syringe IV-PUSH 06/21/25 08:59 10 ml BID ERNESTINA Administration Spironolactone 25 mg 06/21/24 09:00 06/23/24 09:02 Spironolactone 25 Mg Tablet PO 06/21/25 08:59 25 mg DAILY ERNESTINA Administration Timolol Maleate 1 drops 06/21/24 09:00 06/23/24 09:03 Timolol Mal 0.5% Op Soln 100 Drops/5 Ml Bottle EYE-BOTH 06/21/25 08:59 1 drops DAILY ERNESTINA Administration Vitamin D 25 mcg 06/21/24 09:00 06/23/24 09:02 Cholecalciferol 25 Mcg (1,000 Units) Tablet PO 06/21/25 08:59 25 mcg DAILY ERNESTINA Administration Warfarin Sodium 1 each 06/21/24 08:44 Warfarin - Pharmacy Dosing MISCELLANE 06/21/25 08:43 PRN PRN zz.Pharmacy Note Protocol Warfarin Sodium 1.25 mg 06/23/24 17:00 Warfarin 2.5 Mg Tablet PO 06/23/24 17:01 ONCE ONE Assessment/Plan Assessment/Plan (1) Impaired mobility and activities of daily living: (2) Critical illness myopathy: (3) Essential hypertension: (4) 3-vessel coronary artery disease: (5) Multisystem organ failure: (6) Liver failure: (7) Respiratory failure: (8) COVID-19: (9) Sepsis: (10) Type 2 diabetes mellitus with hyperglycemia: Qualifiers: Diabetes mellitus cra officer insulin use: without assisted use Qualified Code(s): E11.65 - Type 2 diabetes mellitus with hyperglycemia (11) Atrial fibrillation: Plan This is a 78-year-old female who presents to [facility] IRF due to multifactorial functional decline in the setting of complex hospitalization with COVID-19 infection, cardiogenic shock, NSTEMI, KARIS, acute liver failure, and 3 vessel CAD. She has continued impaired mobility and impaired independence with ADLs and IADLs requiring PT/OT 5-7 days/week 3 hours/day to maximize safety and independence with functional ability and self-care. -PT to improve patient's strength, endurance, bed mobility, transfers (sit-stand), standing balance, gait quality on level surfaces and stairs, coordination and functional ADL skills. We will also work to improve patient's safety awareness during transfers and ambulation. -OT for basic ADL retraining (bathing, dressing, toileting, continence, grooming, feeding, transferring), to increase activity tolerance and functional mobility to evaluate for adaptive assistive device. We will work to improve patient's endurance and educate patient on fall prevention and energy conservation techniques-pacing strategies and proper breathing techniques duringfunctional tasks. -Patient education -Pressure ulcer prophylaxis; encourage mobilization, frequent postural changes, pressure-relief techniques -DVT prophylaxis -Encourage deep breathing exercise incentive spirometry. -Monitor bladder. Toileting schedule. Continue current bladder management, with scans as needed and CIC if needed. Start bowel care program every day to obtain continence, prevent ileus. -Maintain fall precautions -Gait and balance retraining -Provision of the necessary gait aids and functional adaptive equipment to enhance the patient's a functional bahai -Encourage deep breathing exercises and incentive spirometry -RD evaluation -Ensure adequate nutrition and hydration -Discharge planning. #. UPDATES -Patient is doing well overall from a PT/OT standpoint -My only concern currently is that she is retaining urine. She is refusing Foleycatheter placement. I will give her an OP referral to urology. Educated about the risks of urinary retention. She voiced understanding. I will start her on Flomax as well. -Continue medical management for CAD. Plavix,Metoprolol, Entresto, Aldactone, Imdur. Can resume Lipitor when LFTs improved -Continue Metformin for diabetes -Hospitalist to assist with management of comorbid medical conditions -Continue PT/OT as ordered -DC home tomorrow #. Pain control: Tylenol PRN #. Bowel and bladder: Will DC Huber catheter today #. Skin: (pressure ulcer/surgical site) Pressure ulcer prophylaxis; encourage mobilization, frequent postural changes, pressure-relief techniques #. Sleep: Optimize sleep/wake cycle DVT prophylaxis: Warfarin Functional status: Impaired. Limited by pain, weakness Discharge planning: ELOS 1-2 weeks Patient was personally seen by me, Dr. Castellanos, on the day of encounter, reviewed the history and the relevant portions of the chart, including current orders, allied health and infrastructure consultant notes, labs/imaging and performed august elements of exam and I formulated the plan of care and facilitated the medical decision making. I completed a substantive portion of this encounter, the medical decision makingportion of this note in its entirety, including Allied health note review, nursing note review, infrastructure consultant note review, discussion with nursing and case management, and more than 50% of my time was spent on counseling and coordination of care, time spent 30 minutes Documented By: David Castellanos MD 151 Signed By: <Electronically signed by David Castellanos MD> 06/23/24 1516 [facility] Work Phone: [phone] [place] [id number] Phys[place]ry(Rehab) Progress Note Signed Patient: Lyric Juarez MR#: [id number] : 1945 Acct:[id number] Age/Sex: 78 / F Adm Date: 5 Loc: 5T Room: 9Q9080-0 Type: ADM IN Attending Dr: David Castellanos MD Copies to: ~ Date of Service: 06/23/2024 Subjective Subjective Narrative: Patient is 78-year-old female who presents with multifactorial functional decline in the setting ofCOVID-19 infection, severe CAD, septic shock. The patient initially presented to [facility] after a fall. Was found to be in afib with RVR, positive for COVID-19, as welll as significant troponin elevation. She was therefore transferred to [facility] for further care. Upon presentation, she sustained a syncopal episode. She was noted to be hypotensive and required pressor support. Blood cultures and broad-spectrum antibiotics were administered for presumed sepsis. However, an echocardiogram showed ejection fraction of 35%, with suggestion of apical ballooning syndrome/Takotsubo cardiomyopathy. Patient was seen by cardiology, and after elective endotracheal intubation as she could not lay flat, coronary angiogram was later performed on June 15, disclosing severe multiplevessel disease, including total occlusion of mid LAD, total occlusion of proximal RCA, 95% left circumflex stenosis. Patient was not felt to be a candidate for immediate revascularization or CABG dueto her coronary anatomy. Medical therapy was recommended. The patient gradually improved. PM&R was consulted for evaluation for rehab. The patient was seen today. Sitting up in bed. She reports that she is doing quite well and feels ready to go home. She is asking to DC tomorrow. Functionally she is at an appropriate level for DC. she has been having some urinary retention and has required straight cathsx3. I discussed that we mayneed to place a huber prior to DC which she refused. She is requesting OP followup with urology which we will schedule. Review of Systems Review of Systems All other systems reviewed & are negative unless noted below or in HPI Exam Physical Exam Vital Signs: Temp Pulse Resp BP Pulse Ox O2 Del Method 97.5 F L 105 H 16 126/90 95 Room Air 06/23/24 05:56 06/23/24 05:56 06/23/24 05:56 06/23/24 05:56 06/23/24 05:56 06/23/24 07:30 Narrative: General: Awake, A&O x 3, pleasant, cooperative, well nourished. Resting comfortably in bed HENT: NC, AT Eyes: No scleral icterus Neck: Supple Cardio: Extremities well perfused Respiratory: CTAB, no wheezes rhonchi or rales. No evidence of respiratory distress GI: Soft, nontender, nondistended Neuro: CN II-XII intact. Noted right sided weakness compared to left Extremities: No edema, erythema, cyanosis Psych: Affect, speech and movements normal. Mood congruent Objective Labs 06/21/24 04:55 06/21/24 04:55 Labs: Laboratory Results - last 24 hr 06/22/24 06/22/24 06/23/24 16:43 21:58 05:23 PT 23.8 H INR 2.1 POC Glucose 122 147 POC Glucose Comment Glu2: cleaned meter 06/23/24 06/23/24 06:23 11:18 PT INR POC Glucose 107 145 POC Glucose Comment Medications and Allergies Allergies and Active Meds: Allergies flecainide Allergy (Unknown, Verified 05/17/24 08:07) Hives Active Medications Generic Name Dose Route Start Last Admin Trade Name Freq PRN Reason Stop Dose Admin Acetaminophen 500 mg 06/20/24 17:04 06/23/24 05:58 Acetaminophen 500 Mg Tablet PO 06/20/25 17:03 500 mg Q4H PRN Administration Pain Al Hydrox/Mg Hydrox/Simethicone 30 ml 06/20/24 17:04 Mag Hydrox/Al Hydrox/Simeth 30 Ml Udc PO 06/20/25 17:03 Q4H PRN Indigestion Atorvastatin Calcium 80 mg 06/27/24 21:00 Atorvastatin 80 Mg Tablet PO 06/27/25 20:59 QPM ERNESTINA Bisacodyl 10 mg 06/20/24 17:04 Bisacodyl 10 Mg Supp.Rect PA 06/20/25 17:03 DAILY PRN Constipation Clopidogrel Bisulfate 75 mg 06/21/24 09:00 06/23/24 09:02 Clopidogrel Bisulfate 75 Mg Tablet PO 06/21/25 08:59 75 mg DAILY ERNESTINA Administration Dapagliflozin 10 mg 06/21/24 09:00 06/23/24 09:02 Dapagliflozin 10 Mg Tablet PO 06/21/25 08:59 10 mg QAM ERNESTINA Administration Diphenhydramine HCl 25 mg 06/20/24 20:53 06/22/24 22:04 Diphenhydramine 25 Mg Capsule PO 06/20/25 20:52 25 mg HS PRN Administration Sleep Docusate Sodium 100 mg 06/20/24 17:04 Docusate 100 Mg Capsule PO 06/20/25 17:03 BID PRN Constipation Docusate Sodium 283 mg 06/20/24 17:04 Docusate Enema 283 Mg/5 Ml Enema PA 06/20/25 17:03 DAILY PRN Constipation Dorzolamide HCl 1 drops 06/21/24 09:00 06/23/24 09:03 Dorzolamide 2% Op Soln 200 Drops/10 Ml Bottle EYE-BOTH 06/21/25 08:59 1 drops DAILY ERNESTINA Administration Insulin Aspart 0 units 06/20/24 22:00 06/23/24 12:07 Insulin Aspart 300 Units/3 Ml SUBCUT 06/20/25 21:59 Not Given TID.WM.HS ERNESTINA Protocol Isosorbide Mononitrate 60 mg 06/21/24 06:00 06/23/24 05:58 Isosorbide Mononitrate 24hr Er 60 Mg Tab.Er.24h PO 06/21/25 05:59 60 mg DAILY.6A ERNESTINA Administration Lactulose 30 gm 06/20/24 17:04 Lactulose 20 Gm/30 Ml Udc PO 06/20/25 17:03 DAILY PRN Constipation Metformin HCl 500 mg 06/21/24 09:00 06/23/24 09:02 Metformin 500 Mg Tablet PO 06/21/25 08:59 500 mg DAILY ERNESTINA Administration Metoprolol Succinate 50 mg 06/21/24 09:00 06/23/24 09:02 Metoprolol Succinate 50 Mg Tab.Er.24h PO 06/21/25 08:59 50 mg DAILY ERNESTINA Administration Ondansetron HCl 4 mg 06/21/24 08:18 06/21/24 11:45 Ondansetron Odt 4 Mg Tab.Rapdis PO 06/21/25 08:17 4 mg Q6HR PRN Administration Nausea And Vomiting Potassium Chloride 20 meq 06/21/24 09:00 06/23/24 09:02 Potassium Chloride Er 20 Meq Tab.Er.Prt PO 06/21/25 08:59 20 meq DAILY ERNESTINA Administration Sacubitril/Valsartan 1 tab 06/20/24 21:00 06/23/24 09:02 Sacubitril/Valsartan 24-26mg 1 Tab Tablet PO 06/20/25 20:59 1 tab BID ERNESTINA Administration Sennosides 17.2 mg 06/21/24 12:00 Sennosides 8.6 Mg Tablet PO 06/21/25 11:59 DAILY@12 PRN If no BM in 2 days Sodium Chloride 0 ml 06/20/24 17:04 Sodium Chloride 0.9 % 10 Ml Syringe IV-PUSH 06/20/25 17:03 PRN PRN Flush Sodium Chloride 10 ml 06/21/24 09:00 06/23/24 09:03 Sodium Chloride 0.9 % 10 Ml Syringe IV-PUSH 06/21/25 08:59 10 ml BID ERNESTINA Administration Spironolactone 25 mg 06/21/24 09:00 06/23/24 09:02 Spironolactone 25 Mg Tablet PO 06/21/25 08:59 25 mg DAILY ERNESTINA Administration Timolol Maleate 1 drops 06/21/24 09:00 06/23/24 09:03 Timolol Mal 0.5% Op Soln 100 Drops/5 Ml Bottle EYE-BOTH 06/21/25 08:59 1 drops DAILY ERNESTINA Administration Vitamin D 25 mcg 06/21/24 09:00 06/23/24 09:02 Cholecalciferol 25 Mcg (1,000 Units) Tablet PO 06/21/25 08:59 25 mcg DAILY ERNESTINA Administration Warfarin Sodium 1 each 06/21/24 08:44 Warfarin - Pharmacy Dosing MISCELLANE 06/21/25 08:43 PRN PRN zz.Pharmacy Note Protocol Warfarin Sodium 1.25 mg 06/23/24 17:00 Warfarin 2.5 Mg Tablet PO 06/23/24 17:01 ONCE ONE Assessment/Plan Assessment/Plan (1) Impaired mobility and activities of daily living: (2) Critical illness myopathy: (3) Essential hypertension: (4) 3-vessel coronary artery disease: (5) Multisystem organ failure: (6) Liver failure: (7) Respiratory failure: (8) COVID-19: (9) Sepsis: (10) Type 2 diabetes mellitus with hyperglycemia: Qualifiers: Diabetes mellitus cra officer insulin use: without cra officer use Qualified Code(s): E11.65 - Type 2 diabetes mellitus with hyperglycemia (11) Atrial fibrillation: Plan This is a 78-year-old female who presents to [facility] IRF due to multifactorial functional decline in the setting of complex hospitalization with COVID-19 infection, cardiogenic shock, NSTEMI, KARIS, acute liver failure, and 3 vessel CAD. She has continued impaired mobility and impaired independence with ADLs and IADLs requiring PT/OT 5-7 days/week 3 hours/day to maximize safety and independence with functional ability and self-care. -PT to improve patient's strength, endurance, bed mobility, transfers (sit- stand), standing balance, gait quality on level surfaces and stairs, coordination and functional ADL skills. We will also work to improve patient's safety awareness during transfers and ambulation. -OT for basic ADL retraining (bathing, dressing, toileting, continence, grooming, feeding, transferring), to increase activity tolerance and functional mobility to evaluate for adaptive assistive device. We will work to improve patient's endurance and educate patient on fall prevention and energy co nservation techniques-pacing strategies and proper breathing techniques duringfunctional tasks. -Patient education -Pressure ulcer prophylaxis; encourage mobilization, frequent postural changes, pressure-relief techniques -DVT prophylaxis -Encourage deep breathing exercise incentive spirometry. -Monitor bladder. Toileting schedule. Continue current bladder management, with scans as needed andCIC if needed. Start bowel care program every day to obtain continence, prevent ileus. -Maintain fall precautions -Gait and balance retraining -Provision of the necessary gait aids and functional adaptive equipment to enhance the patient's a functional bahai -Encourage deep breathing exercises and incentive spirometry -RD evaluation -Ensure adequate nutrition and hydration -Discharge planning. #. UPDATES -Patient is doing well overall from a PT/OT standpoint -My only concern currently is that she is retaining urine. She is refusing Foleycatheter placement.I will give her an OP referral to urology. Educated about the risks of urinary retention. She voiced understanding. I will start her on Flomax as well. -Continue medical management for CAD. Plavix,Metoprolol, Entresto, Aldactone, Imdur. Can resume Lipitor when LFTs improved -Continue Metformin for diabetes -Hospitalist to assist with management of comorbid medical conditions -Continue PT/OT as ordered -DC home tomorrow #. Pain control: Tylenol PRN #. Bowel and bladder: Will DC Huber catheter today #. Skin: (pressure ulcer/surgical site) Pressure ulcer prophylaxis; encourage mobilization, frequent postural changes, pressure-relief techniques #. Sleep: Optimize sleep/wake cycle DVT prophylaxis: Warfarin Functional status: Impaired. Limited by pain, weakness Discharge planning: ELOS 1-2 weeks Patient was personally seen by me, Dr. Castellanos, on the day of encounter, reviewed the history and the relevant portions of the chart, including current orders, allied health and infrastructure consultant notes, labs/imaging and performed august elements of exam and I formulated the plan of care and facilitated the medical decision making. I completed a substantive portion of this encounter, the medical decision makingportion of this note in its entirety, including Allied health note review, nursing note review, infrastructure consultant note review,discussion with nursing and case management, and more than 50% of my time was spent on counseling and coordination of care, time spent 30 minutes Documented By: David Castellanos MD [id number] Signed By: 06/23/[address] [place], [place] [id number] Consult note Author Zaira Waggoner [facility] Note Date/Time June 21, 2024 8:20pm [facility] [address] [place] [address] Hospitalist Consult Note Signed Patient: Lyric Juarez MR#: [id number] : 1945 Acct:[id number] Age/Sex: 78 / F Adm Date: 5 Loc: Room: [address] [place] [address] Type: ADM IN Attending Dr: David Castellanos MD Copies to: MD Jason Vines MD Lynn A Stackhouse-Roby, APRN Marcia E Braun, MD~ HPI DATE OF CONSULTATION: 06/21/24 REQUESTING PROVIDER: David Castellanos Consult Narrative Reason for Consult: hypertension, diabetes HPI: History significant for this is a 78-year-old female with a past medical historysignificant for hyperlipidemia, diabetes, glaucoma, CAD, paroxysmal atrial fibrillation on chronic anticoagulation, hypertension, CKD3. The patient initially presented to [facility] after falling at home. She was found to be in atrial fibrillation with RVR as well as COVID-19 positive and troponin elevation/ NSTEMI. She was transferred to [facility] for ongoing management. Patient initially was hypotensive and sustained a syncopal episode while in hospital. Further workup with blood cultures and broad spectrum antibiotic therapy for presumed sepsis with shock, was on vasopressors briefly. Echocardiogram with EF 35% and suggestive of apical ballooning/Takotsubo cardiomyopathy. She was seen by cardiology services under consultation. Underwent coronary angiogram with elective endotracheal intubation due to inability to lie flat biliary cath demonstrating multivessel disease with total occlusion of the mid LAD, total occlusion of proximal RCA, 95% left circumflex. She was felt not to be a candidate for immediate revascularization or CABG due to her coronary anatomy and medical therapy initiated. Followed by nephrology services for KARIS felt to be contrast-induced and electrolyte derangements with improvement. Seen by GI services during hospital stay for elevated LFTs felt raul ischemic hepatitis and COVID. Treated with steroid for COVID. Also treated for UTI. Seen by therapy services with recommendations for ongoing rehab, subsequently discharged to the acute inpatient physical rehab unit June 20. Hospitalist team now consulted for ongoing management of hypertension anddiabetes Patient seen and examined. Offers no complaints than fatigue. Denies chest pain or palpitations. No cough, dyspnea, or pain with inspiration. No abdominal pain or indigestion, constipation or diarrhea, nausea or vomiting. Nodysuria or retention. No headache or dizziness. No fevers or chills. Review of Systems Review of Systems All other systems reviewed & are negative unless noted below or in HPI [facility] Medical History Type 2 diabetes mellitus with hyperglycemia Paroxysmal atrial fibrillation (09/20/15) Other specified anxiety disorders (02/05/18) Hyperlipidemia, unspecified (09/20/15) History of falling Essential (primary) hypertension Erythrasma (11/09/17) Surgical History History of cholecystectomy Family History Father Mother Social History Smoking Status: Never smoker Substance Use Type: None Meds Medications and Allergies Allergies flecainide Allergy (Unknown, Verified 05/17/24 08:07) Hives Home Medications lancets 30 gauge (OneTouch Delica Plus Lancet) #100 ea 04/19/24 [History Confirmed 05/17/24] potassium chloride 20 mEq tablet,extended release(part/cryst) (Klor-Con M) 20 meq PO DAILY 04/19/24 [History Confirmed 06/20/24] warfarin 2.5 mg tablet 2.5 mg PO DAILY 04/19/24 [History Confirmed 06/20/24] cholecalciferol (vitamin D3) 25 mcg (1,000 unit) capsule 25 mcg PO DAILY 04/20/24 [History Confirmed 06/20/24] metformin 500 mg tablet,extended release 24 hr 500 mg PO DAILY #30 tabs 05/17/24[Rx Confirmed 06/20/24] blood sugar diagnostic (PayByGroupTouch Verio test strips) #100 strips 06/01/24 [Rx] dorzolamide-timolol (PF) 2 %-0.5 % eye drops in a dropperette 1 drp Eye-Both DAILY 06/11/24 [History Confirmed 06/20/24] atorvastatin 80 mg tablet 80 mg PO QPM #0 tabs 06/20/24 [Rx Confirmed 06/20/24] clopidogrel 75 mg tablet 75 mg PO DAILY #0 tabs 06/20/24 [Rx Confirmed 06/20/24] empagliflozin 25 mg tablet (Jardiance) 25 mg PO QAM #360 tabs 06/20/24 [Rx Confirmed 06/20/24] insulin aspart U-100 100 unit/mL (3 mL) subcutaneous pen See Protocol subcut ACHS #0 mL 06/20/24 [Rx] isosorbide mononitrate 60 mg tablet,extended release 24 hr 60 mg PO DAILY.6A #0 tabs 06/20/24 [Rx Confirmed 06/20/24] metoprolol succinate 50 mg tablet,extended release 24 hr 50 mg PO DAILY #0 tabs 06/20/24 [Rx Confirmed 06/20/24] sacubitril 24 mg-valsartan 26 mg tablet (Entresto) 1 tab PO BID #0 tabs 06/20/24[Rx Confirmed 06/20/24] spironolactone 25 mg tablet 25 mg PO DAILY #0 tabs 06/20/24 [Rx Confirmed 06/20/24] Active Medications: Active Medications Generic Name Dose Route Start Last Admin Trade Name Freq PRN Reason Stop Dose Admin Acetaminophen 500 mg 06/20/24 17:04 Acetaminophen 500 Mg Tablet PO 06/20/25 17:03 Q4H PRN Pain Al Hydrox/Mg Hydrox/Simethicone 30 ml 06/20/24 17:04 Mag Hydrox/Al Hydrox/Simeth 30 Ml Udc PO 06/20/25 17:03 Q4H PRN Indigestion Atorvastatin Calcium 80 mg 06/27/24 21:00 Atorvastatin 80 Mg Tablet PO 06/27/25 20:59 QPM ERNESTINA Bisacodyl 10 mg 06/20/24 17:04 Bisacodyl 10 Mg Supp.Rect PA 06/20/25 17:03 DAILY PRN Constipation Clopidogrel Bisulfate 75 mg 06/21/24 09:00 06/21/24 09:07 Clopidogrel Bisulfate 75 Mg Tablet PO 06/21/25 08:59 75 mg DAILY ERNESTINA Administration Dapagliflozin 10 mg 06/21/24 09:00 06/21/24 09:07 Dapagliflozin 10 Mg Tablet PO 06/21/25 08:59 10 mg QAM ERNESTINA Administration Diphenhydramine HCl 25 mg 06/20/24 20:53 06/20/24 21:07 Diphenhydramine 25 Mg Capsule PO 06/20/25 20:52 25 mg HS PRN Administration Sleep Docusate Sodium 100 mg 06/20/24 17:04 Docusate 100 Mg Capsule PO 06/20/25 17:03 BID PRN Constipation Docusate Sodium 283 mg 06/20/24 17:04 Docusate Enema 283 Mg/5 Ml Enema PA 06/20/25 17:03 DAILY PRN Constipation Dorzolamide HCl 1 drops 06/21/24 09:00 06/21/24 09:06 Dorzolamide 2% Op Soln 200 Drops/10 Ml Bottle EYE-BOTH 06/21/25 08:59 1 drops DAILY ERNESTINA Administration Insulin Aspart 0 units 06/20/24 22:00 06/21/24 11:53 Insulin Aspart 300 Units/3 Ml SUBCUT 06/20/25 21:59 2 units TID.WM.HS ERNESTINA Administration Protocol Isosorbide Mononitrate 60 mg 06/21/24 06:00 06/21/24 05:26 Isosorbide Mononitrate 24hr Er 60 Mg Tab.Er.24h PO 06/21/25 05:59 60 mg DAILY.6A ERNESTINA Administration Lactulose 30 gm 06/20/24 17:04 Lactulose 20 Gm/30 Ml Udc PO 06/20/25 17:03 DAILY PRN Constipation Metformin HCl 500 mg 06/21/24 09:00 06/21/24 09:07 Metformin 500 Mg Tablet PO 06/21/25 08:59 500 mg DAILY ERNESTINA Administration Metoprolol Succinate 50 mg 06/21/24 09:00 06/21/24 09:05 Metoprolol Succinate 50 Mg Tab.Er.24h PO 06/21/25 08:59 50 mg DAILY ERNESTINA Administration Ondansetron HCl 4 mg 06/21/24 08:18 06/21/24 11:45 Ondansetron Odt 4 Mg Tab.Rapdis PO 06/21/25 08:17 4 mg Q6HR PRN Administration Nausea And Vomiting Potassium Chloride 20 meq 06/21/24 09:00 06/21/24 09:07 Potassium Chloride Er 20 Meq Tab.Er.Prt PO 06/21/25 08:59 20 meq DAILY ERNESTINA Administration Sacubitril/Valsartan 1 tab 06/20/24 21:00 06/21/24 09:07 Sacubitril/Valsartan 24-26mg 1 Tab Tablet PO 06/20/25 20:59 1 tab BID ERNESTINA Administration Sennosides 17.2 mg 06/21/24 12:00 Sennosides 8.6 Mg Tablet PO 06/21/25 11:59 DAILY@12 PRN If no BM in 2 days Sodium Chloride 0 ml 06/20/24 17:04 Sodium Chloride 0.9 % 10 Ml Syringe IV-PUSH 06/20/25 17:03 PRN PRN Flush Sodium Chloride 10 ml 06/21/24 09:00 06/21/24 09:09 Sodium Chloride 0.9 % 10 Ml Syringe IV-PUSH 06/21/25 08:59 10 ml BID ERNESTINA Administration Spironolactone 25 mg 06/21/24 09:00 06/21/24 09:07 Spironolactone 25 Mg Tablet PO 06/21/25 08:59 25 mg DAILY ERNESTINA Administration Timolol Maleate 1 drops 06/21/24 09:00 06/21/24 09:09 Timolol Mal 0.5% Op Soln 100 Drops/5 Ml Bottle EYE-BOTH 06/21/25 08:59 1 drops DAILY ERNESTINA Administration Vitamin D 25 mcg 06/21/24 09:00 06/21/24 09:07 Cholecalciferol 25 Mcg (1,000 Units) Tablet PO 06/21/25 08:59 25 mcg DAILY ERNESTINA Administration Warfarin Sodium 1 each 06/21/24 08:44 Warfarin - Pharmacy Dosing MISCELLANE 06/21/25 08:43 PRN PRN zz.Pharmacy Note Protocol Warfarin Sodium 2.5 mg 06/21/24 17:00 Warfarin 2.5 Mg Tablet PO 06/21/24 17:01 ONCE ONE Exam Physical Exam Vital Signs: Temp Pulse Resp BP Pulse Ox O2 Del Method 98.3 F 83 16 130/83 95 Room Air 06/21/24 15:04 06/21/24 15:04 06/21/24 15:04 06/21/24 15:04 06/21/24 15:04 06/21/24 15:16 Narrative: CONST- alert, in bed, elderly female HEAD- normocephalic and atraumatic EENT- sclera nonicteric and conjunctiva nonerythemic, moist oral mucosa, pharynxnot visualized NECK- supple, no cervical lymphadenopathy CARDIAC- RRR no abnormal heart tones PULM- diminished without wheeze or rhonchi, RA, no accessory muscle use or coughnoted ABD- S/NT, NABS, round, huber EXTREM- no edema BLE, calves nontender SKIN- W/D, good turgor MS- MAEx4 spontaneously with equal strength NEURO- A&Ox3, speech clear and tongue midline, equal facial symmetry PSYCH-mood and behavior appropriate Results - Hospitalist Consult Lab Results Labs: Laboratory Results - last 72 hr 06/21/24 11:41: POC Glucose 163, POC Glucose Comment Glu2: cleaned meter 06/21/24 06:13: POC Glucose 126 06/21/24 04:55: Corrected WBC 12.8 H, Uncorrected WBC Count 12.8 H, RBC 3.73, Hgb 11.4 L, Hct 34.5, MCV 92.5, MCH 30.5, MCHC 33.0, RDW 14.4, Plt Count 291, MPV 8.3, Neut % (Auto) 79.0, Lymph % (Auto) 7.6, [place] % (Auto) 11.9, Eos % (Auto) 1.2, Baso % (Auto) 0.3, Nucleat RBC Rel Count 0.2, Neut # (Auto) 10.1 H, Lymph # (Auto) 1.0, [place] # (Auto) 1.5 H, Eos # (Auto) 0.2, Baso # (Auto) 0.0, PT26.8 H, INR 2.4, PHA Creatinine Clear 50.08, Sodium 133 L, Potassium 3.6, Chloride 94 L, Carbon Dioxide 31.2 H, Anion Gap 11.4, BUN 32 H, Creatinine 1.01,Est GFR (CKD-EPI) 56.980, Glucose 137 H, Calcium 8.9, Total Bilirubin 0.9, AST 44 H, ALT 258 H, Alkaline Phosphatase 176 H, Total Protein 5.9 L, Albumin 3.3 L,Globulin 2.6, Albumin/Globulin Ratio 1.3, Prealbumin 11.8 L 06/20/24 20:15: POC Glucose 140, POC Glucose Comment Glu2: cleaned meter Assessment & Plan Assessment/Plan (1) Critical illness myopathy: (2) Essential hypertension: (3) 3-vessel coronary artery disease: (4) Elevated liver transaminase level: (5) Dyslipidemia: (6) Hyponatremia: (7) Paroxysmal atrial fibrillation: (8) Essential (primary) hypertension: (9) Hyperlipidemia, unspecified: (10) Type 2 diabetes mellitus with hyperglycemia: (11) Chronic anticoagulation: Plan Critical illness myopathy- s/p COVID, suspected UTI, Pneumonia, Sepsis with shock, NSTEMI, liver failure -further plan of care per PMR team for rehabilitative therapy, pain control & bowel regimen, DVT prophylaxis -gradual improvement in liver functions anticipated Chronic Conditions 1. Hypertension- Metoprolol, Entresto, Spironolactone. BP reviewed controlled 2. CAD 3-vessel, Takotsubo CM, HFrEF- clopidogrel, isosorbide, metoprolol, Entresto, spironolactone. Not candidate for intervention and planned medical therapy. 3. Diabetes- Dapagliflozin, SSIC and fingerstick, metformin. Recent A1c 7.6 on04/25/24 4. Hyperlipidemia- atorvastatin 5. Glaucoma- timolol 6. Atrial fibrillation on chronic anticoagulation- Warfarin pharmacy to manage Dr. Tomlin Attestation: Patient was personally seen by me on the day of encounter. I reviewed her history and performed august elements of exam and formulated the plan of care and confirmed the nurse practitioner note above. Plan of care reflects my direct input Documented By: Zaira Waggoner APRN 06/11 06/04 1603 Signed By: <Electronically signed by LUCIANO Waggoner> 06/21/24 1756 <Electronically signed by Jason Tomlin MD> 06/21/242019 [facility] Work Phone: [phone] [place] [address] Hospitalist Consult Note Signed Patient: Lyric Juarez MR#: [id number] : 1945 Acct:[id number] Age/Sex: 78 / F Adm Date: 5 Loc: Room: [address] [place] [address] Type: ADM IN Attending Dr: David Castellanos MD Copies to: MD Jason Vines MD Lynn A Stackhouse-Roby, APRN Marcia E Braun, MD~ HPI DATE OF CONSULTATION: 06/21/24 REQUESTING PROVIDER: David Castellanos Consult Narrative Reason for Consult: hypertension, diabetes HPI: History significant for this is a 78-year-old female with a past medical historysignificant for hyperlipidemia, diabetes, glaucoma, CAD, paroxysmal atrial fibrillation on chronic anticoagulation, hypertension, CKD3. The patient initially presented to [facility] after falling at home. She wasfound to be in atrial fibrillation with RVR as well as COVID-19 positive and troponin elevation/ NSTEMI. She was transferred to [facility] for ongoing management. Patient initially was hypotensive andsustained a syncopal episode while in hospital. Further workup with blood cultures and broad spectrum antibiotic therapy for presumed sepsis with shock, was on vasopressors briefly. Echocardiogram with EF 35% and suggestive of apical ballooning/Takotsubo cardiomyopathy. She was seen by cardiology services under consultation. Underwent coronary angiogram with elective endotracheal intubation due to inability to lie flat biliary cath demonstrating multivessel disease with total occlusion of the mid LAD, total occlusion of proximal RCA, 95% left circumflex. She was felt not to be a candidate forimmediate revascularization or CABG due to her coronary anatomy and medical therapy initiated. Followed by nephrology services for KARIS felt to be contrast-induced and electrolyte derangements with improvement. Seen by GI services during hospital stay for elevated LFTs felt raul ischemic hepatitis and COVID. Treated with steroid for COVID. Also treated for UTI. Seen by therapy services with recommendations for ongoing rehab, subsequently discharged to the acute inpatient physical rehab unit June 20. Hospitalist team now consulted for ongoing management of hypertension anddiabetes Patient seen and examined. Offers no complaints than fatigue. Denies chest pain or palpitations. Nocough, dyspnea, or pain with inspiration. No abdominal pain or indigestion, constipation or diarrhea, nausea or vomiting. Nodysuria or retention. No headache or dizziness. No fevers or chills. Review of Systems Review of Systems All other systems reviewed & are negative unless noted below or in HPI [facility] Medical History Type 2 diabetes mellitus with hyperglycemia Paroxysmal atrial fibrillation (09/20/15) Other specified anxiety disorders (02/05/18) Hyperlipidemia, unspecified (09/20/15) History of falling Essential (primary) hypertension Erythrasma (11/09/17) Surgical History History of cholecystectomy Family History Father Mother Social History Smoking Status: Never smoker Substance Use Type: None Meds Medications and Allergies Allergies flecainide Allergy (Unknown, Verified 05/17/24 08:07) Hives Home Medications lancets 30 gauge (OneTouch Delica Plus Lancet) #100 ea 04/19/24 [History Confirmed 05/17/24] potassium chloride 20 mEq tablet,extended release(part/cryst) (Klor-Con M) 20 meq PO DAILY 04/19/24[History Confirmed 06/20/24] warfarin 2.5 mg tablet 2.5 mg PO DAILY 04/19/24 [History Confirmed 06/20/24] cholecalciferol (vitamin D3) 25 mcg (1,000 unit) capsule 25 mcg PO DAILY 04/20/24 [History Confirmed 06/20/24] metformin 500 mg tablet,extended release 24 hr 500 mg PO DAILY #30 tabs 05/17/24[Rx Confirmed 06/20/24] blood sugar diagnostic (OneTouch Verio test strips) #100 strips 06/01/24 [Rx] dorzolamide-timolol (PF) 2 %-0.5 % eye drops in a dropperette 1 drp Eye-Both DAILY 06/11/24 [History Confirmed 06/20/24] atorvastatin 80 mg tablet 80 mg PO QPM #0 tabs 06/20/24 [Rx Confirmed 06/20/24] clopidogrel 75 mg tablet 75 mg PO DAILY #0 tabs 06/20/24 [Rx Confirmed 06/20/24] empagliflozin 25 mg tablet (Jardiance) 25 mg PO QAM #360 tabs 06/20/24 [Rx Confirmed 06/20/24] insulin aspart U-100 100 unit/mL (3 mL) subcutaneous pen See Protocol subcut ACHS #0 mL 06/20/24 [Rx] isosorbide mononitrate 60 mg tablet,extended release 24 hr 60 mg PO DAILY.6A #0 tabs 06/20/24 [Rx Confirmed 06/20/24] metoprolol succinate 50 mg tablet,extended release 24 hr 50 mg PO DAILY #0 tabs 06/20/24 [Rx Confirmed 06/20/24] sacubitril 24 mg-valsartan 26 mg tablet (Entresto) 1 tab PO BID #0 tabs 06/20/24[Rx Confirmed 06/20/24] spironolactone 25 mg tablet 25 mg PO DAILY #0 tabs 06/20/24 [Rx Confirmed 06/20/24] Active Medications: Active Medications Generic Name Dose Route Start Last Admin Trade Name Freq PRN Reason Stop Dose Admin Acetaminophen 500 mg 06/20/24 17:04 Acetaminophen 500 Mg Tablet PO 06/20/25 17:03 Q4H PRN Pain Al Hydrox/Mg Hydrox/Simethicone 30 ml 06/20/24 17:04 Mag Hydrox/Al Hydrox/Simeth 30 Ml Udc PO 06/20/25 17:03 Q4H PRN Indigestion Atorvastatin Calcium 80 mg 06/27/24 21:00 Atorvastatin 80 Mg Tablet PO 06/27/25 20:59 QPM ERNESTINA Bisacodyl 10 mg 06/20/24 17:04 Bisacodyl 10 Mg Supp.Rect PA 06/20/25 17:03 DAILY PRN Constipation Clopidogrel Bisulfate 75 mg 06/21/24 09:00 06/21/24 09:07 Clopidogrel Bisulfate 75 Mg Tablet PO 06/21/25 08:59 75 mg DAILY ERNESTINA Administration Dapagliflozin 10 mg 06/21/24 09:00 06/21/24 09:07 Dapagliflozin 10 Mg Tablet PO 06/21/25 08:59 10 mg QAM ERNESTINA Administration Diphenhydramine HCl 25 mg 06/20/24 20:53 06/20/24 21:07 Diphenhydramine 25 Mg Capsule PO 06/20/25 20:52 25 mg HS PRN Administration Sleep Docusate Sodium 100 mg 06/20/24 17:04 Docusate 100 Mg Capsule PO 06/20/25 17:03 BID PRN Constipation Docusate Sodium 283 mg 06/20/24 17:04 Docusate Enema 283 Mg/5 Ml Enema PA 06/20/25 17:03 DAILY PRN Constipation Dorzolamide HCl 1 drops 06/21/24 09:00 06/21/24 09:06 Dorzolamide 2% Op Soln 200 Drops/10 Ml Bottle EYE-BOTH 06/21/25 08:59 1 drops DAILY ERNESTINA Administration Insulin Aspart 0 units 06/20/24 22:00 06/21/24 11:53 Insulin Aspart 300 Units/3 Ml SUBCUT 06/20/25 21:59 2 units TID.WM.HS ERNESTINA Administration Protocol Isosorbide Mononitrate 60 mg 06/21/24 06:00 06/21/24 05:26 Isosorbide Mononitrate 24hr Er 60 Mg Tab.Er.24h PO 06/21/25 05:59 60 mg DAILY.6A ERNESTINA Administration Lactulose 30 gm 06/20/24 17:04 Lactulose 20 Gm/30 Ml Udc PO 06/20/25 17:03 DAILY PRN Constipation Metformin HCl 500 mg 06/21/24 09:00 06/21/24 09:07 Metformin 500 Mg Tablet PO 06/21/25 08:59 500 mg DAILY ERNESTINA Administration Metoprolol Succinate 50 mg 06/21/24 09:00 06/21/24 09:05 Metoprolol Succinate 50 Mg Tab.Er.24h PO 06/21/25 08:59 50 mg DAILY ERNESTINA Administration Ondansetron HCl 4 mg 06/21/24 08:18 06/21/24 11:45 Ondansetron Odt 4 Mg Tab.Rapdis PO 06/21/25 08:17 4 mg Q6HR PRN Administration Nausea And Vomiting Potassium Chloride 20 meq 06/21/24 09:00 06/21/24 09:07 Potassium Chloride Er 20 Meq Tab.Er.Prt PO 06/21/25 08:59 20 meq DAILY ERNESTINA Administration Sacubitril/Valsartan 1 tab 06/20/24 21:00 06/21/24 09:07 Sacubitril/Valsartan 24-26mg 1 Tab Tablet PO 06/20/25 20:59 1 tab BID ERNESTINA Administration Sennosides 17.2 mg 06/21/24 12:00 Sennosides 8.6 Mg Tablet PO 06/21/25 11:59 DAILY@12 PRN If no BM in 2 days Sodium Chloride 0 ml 06/20/24 17:04 Sodium Chloride 0.9 % 10 Ml Syringe IV-PUSH 06/20/25 17:03 PRN PRN Flush Sodium Chloride 10 ml 06/21/24 09:00 06/21/24 09:09 Sodium Chloride 0.9 % 10 Ml Syringe IV-PUSH 06/21/25 08:59 10 ml BID ERNESTINA Administration Spironolactone 25 mg 06/21/24 09:00 06/21/24 09:07 Spironolactone 25 Mg Tablet PO 06/21/25 08:59 25 mg DAILY ERNESTINA Administration Timolol Maleate 1 drops 06/21/24 09:00 06/21/24 09:09 Timolol Mal 0.5% Op Soln 100 Drops/5 Ml Bottle EYE-BOTH 06/21/25 08:59 1 drops DAILY ERNESTINA Administration Vitamin D 25 mcg 06/21/24 09:00 06/21/24 09:07 Cholecalciferol 25 Mcg (1,000 Units) Tablet PO 06/21/25 08:59 25 mcg DAILY ERNESTINA Administration Warfarin Sodium 1 each 06/21/24 08:44 Warfarin - Pharmacy Dosing MISCELLANE 06/21/25 08:43 PRN PRN zz.Pharmacy Note Protocol Warfarin Sodium 2.5 mg 06/21/24 17:00 Warfarin 2.5 Mg Tablet PO 06/21/24 17:01 ONCE ONE Exam Physical Exam Vital Signs: Temp Pulse Resp BP Pulse Ox O2 Del Method 98.3 F 83 16 130/83 95 Room Air 06/21/24 15:04 06/21/24 15:04 06/21/24 15:04 06/21/24 15:04 06/21/24 15:04 06/21/24 15:16 Narrative: CONST- alert, in bed, elderly female HEAD- normocephalic and atraumatic EENT- sclera nonicteric and conjunctiva nonerythemic, moist oral mucosa, pharynxnot visualized NECK- supple, no cervical lymphadenopathy CARDIAC- RRR no abnormal heart tones PULM- diminished without wheeze or rhonchi, RA, no accessory muscle use or coughnoted ABD- S/NT, NABS, round, huber EXTREM- no edema BLE, calves nontender SKIN- W/D, good turgor MS- MAEx4 spontaneously with equal strength NEURO- A&Ox3, speech clear and tongue midline, equal facial symmetry PSYCH-mood and behavior appropriate Results - Hospitalist Consult Lab Results Labs: Laboratory Results - last 72 hr 06/21/24 11:41: POC Glucose 163, POC Glucose Comment Glu2: cleaned meter 06/21/24 06:13: POC Glucose 126 06/21/24 04:55: Corrected WBC 12.8 H, Uncorrected WBC Count 12.8 H, RBC 3.73, Hgb 11.4 L, Hct 34.5,MCV 92.5, MCH 30.5, MCHC 33.0, RDW 14.4, Plt Count 291, MPV 8.3, Neut % (Auto) 79.0, Lymph % (Auto)7.6, [place] % (Auto) 11.9, Eos % (Auto) 1.2, Baso % (Auto) 0.3, Nucleat RBC Rel Count 0.2, Neut # (Auto) 10.1 H, Lymph # (Auto) 1.0, [place] # (Auto) 1.5 H, Eos # (Auto) 0.2, Baso # (Auto) 0.0, PT26.8 H, INR 2.4, PHA Creatinine Clear 50.08, Sodium 133 L, Potassium 3.6, Chloride 94 L, Carbon Dioxide 31.2H, Anion Gap 11.4, BUN 32 H, Creatinine 1.01,Est GFR (CKD- EPI) 56.980, Glucose 137 H, Calcium 8.9, Total Bilirubin 0.9, AST 44 H, ALT 258 H, Alkaline Phosphatase 176 H, Total Protein 5.9 L, Albumin 3.3 L,Globulin 2.6, Albumin/Globulin Ratio 1.3, Prealbumin 11.8 L 06/20/24 20:15: POC Glucose 140, POC Glucose Comment Glu2: cleaned meter Assessment & Plan Assessment/Plan (1) Critical illness myopathy: (2) Essential hypertension: (3) 3-vessel coronary artery disease: (4) Elevated liver transaminase level: (5) Dyslipidemia: (6) Hyponatremia: (7) Paroxysmal atrial fibrillation: (8) Essential (primary) hypertension: (9) Hyperlipidemia, unspecified: (10) Type 2 diabetes mellitus with hyperglycemia: (11) Chronic anticoagulation: Plan Critical illness myopathy- s/p COVID, suspected UTI, Pneumonia, Sepsis with shock, NSTEMI, liver failure -further plan of care per PMR team for rehabilitative therapy, pain control & bowel regimen, DVT prophylaxis -gradual improvement in liver functions anticipated Chronic Conditions 1. Hypertension- Metoprolol, Entresto, Spironolactone. BP reviewed controlled 2. CAD 3-vessel, Takotsubo CM, HFrEF- clopidogrel, isosorbide, metoprolol, Entresto, spironolactone. Not candidate for intervention and planned medical therapy. 3. Diabetes- Dapagliflozin, SSIC and fingerstick, metformin. Recent A1c 7.6 on04/25/24 4. Hyperlipidemia- atorvastatin 5. Glaucoma- timolol 6. Atrial fibrillation on chronic anticoagulation- Warfarin pharmacy to manage Dr. Tomlin Attestation: Patient was personally seen by me on the day of encounter. I reviewed her history and performed keyelements of exam and formulated the plan of care and confirmed the nurse practitioner note above. Plan of care reflects my direct input Documented By: Zaira Waggoner APRN 06/11 06/04 1604 Signed By: 06/21/24 1756 06/21/242019 [facility]02-11-2025 History and physical note Author David Castellanos [facility] Note Date/Time June 21, 2024 2:08pm [facility] [address] [place] [address] Physiatry (Rehab) H&P Signed Patient: Lyric Juarez MR#: [id number] : 1945 Acct:[id number] Age/Sex: 78 / F Adm Date: 5 Loc: Room: [address] [place] [address] Type: ADM IN Attending Dr: David Castellanos MD Copies to: MD Felipe Vines MD~ Date of Service: 06/21/2024 HPI History of Present Illness: Patient is 78-year-old female who presents with multifactorial functional decline in the setting of COVID-19 infection, severe CAD, septic shock. The patient initially presented to [facility] after a fall. Was found to be in afib with RVR, positive for COVID-19, as welll as significant troponin elevation. She was therefore transferred to [facility] for further care. Upon presentation, she sustained a syncopal episode. She was noted to be hypotensive and required pressor support. Blood cultures and broad-spectrum antibiotics were administered for presumed sepsis. However, an echocardiogram showed ejection fraction of 35%, with suggestion of apical ballooning syndrome/Takotsubo cardiomyopathy. Patient was seen by cardiology, and after elective endotracheal intubation as she could not lay flat, coronary angiogram was later performed on June 15, disclosing severe multiple vessel disease, including total occlusion of mid LAD, total occlusion of proximal RCA, 95% left circumflex stenosis. Patient was not felt to be a candidate for immediate revascularization or CABG due to her coronary anatomy. Medical therapy was recommended. The patient gradually improved. PM&R was consulted for evaluation for rehab. The patient was seen upon admission to the rehab unit. She is resting comfortably in bed in no distress. Reports that she is doing well today. No chest pain, SOB, fever, chills. Admits to some nausea. Currently has a huber catheter placed. [facility] Medical History Type 2 diabetes mellitus with hyperglycemia Paroxysmal atrial fibrillation (09/20/15) Other specified anxiety disorders (02/05/18) Hyperlipidemia, unspecified (09/20/15) History of falling Essential (primary) hypertension Erythrasma (11/09/17) Surgical History History of cholecystectomy Family History Father Mother Social History Smoking Status: Never smoker Substance Use Type: None Meds Medications and Allergies Allergies flecainide Allergy (Unknown, Verified 05/17/24 08:07) Hives Home and Active Meds: Home Medications lancets 30 gauge (PayByGroupTouch Delica Plus Lancet) #100 ea 04/19/24 [History Confirmed 05/17/24] potassium chloride 20 mEq tablet,extended release(part/cryst) (Klor-Con M) 20 meq PO DAILY 04/19/24 [History Confirmed 06/20/24] warfarin 2.5 mg tablet 2.5 mg PO DAILY 04/19/24 [History Confirmed 06/20/24] cholecalciferol (vitamin D3) 25 mcg (1,000 unit) capsule 25 mcg PO DAILY 04/20/24 [History Confirmed 06/20/24] metformin 500 mg tablet,extended release 24 hr 500 mg PO DAILY #30 tabs 05/17/24[Rx Confirmed 06/20/24] blood sugar diagnostic (PayByGroupTouch Verio test strips) #100 strips 06/01/24 [Rx] dorzolamide-timolol (PF) 2 %-0.5 % eye drops in a dropperette 1 drp Eye-Both DAILY 06/11/24 [History Confirmed 06/20/24] atorvastatin 80 mg tablet 80 mg PO QPM #0 tabs 06/20/24 [Rx Confirmed 06/20/24] clopidogrel 75 mg tablet 75 mg PO DAILY #0 tabs 06/20/24 [Rx Confirmed 06/20/24] empagliflozin 25 mg tablet (Jardiance) 25 mg PO QAM #360 tabs 06/20/24 [Rx Confirmed 06/20/24] insulin aspart U-100 100 unit/mL (3 mL) subcutaneous pen See Protocol subcut ACHS #0 mL 06/20/24 [Rx] isosorbide mononitrate 60 mg tablet,extended release 24 hr 60 mg PO DAILY.6A #0 tabs 06/20/24 [Rx Confirmed 06/20/24] metoprolol succinate 50 mg tablet,extended release 24 hr 50 mg PO DAILY #0 tabs 06/20/24 [Rx Confirmed 06/20/24] sacubitril 24 mg-valsartan 26 mg tablet (Entresto) 1 tab PO BID #0 tabs 06/20/24[Rx Confirmed 06/20/24] spironolactone 25 mg tablet 25 mg PO DAILY #0 tabs 06/20/24 [Rx Confirmed 06/20/24] Active Medications Acetaminophen (Acetaminophen 500 Mg Tablet) 500 mg PO Q4H PRN PRN Reason: Pain Stop: 06/20/25 17:03 Al Hydrox/Mg Hydrox/Simethicone (Mag Hydrox/Al Hydrox/Simeth 30 Ml Udc) 30 ml PO Q4H PRN PRN Reason: Indigestion Stop: 06/20/25 17:03 Atorvastatin Calcium (Atorvastatin 80 Mg Tablet) 80 mg PO QPM ERNESTINA Stop: 06/27/25 20:59 Bisacodyl (Bisacodyl 10 Mg Supp.Rect) 10 mg PA DAILY PRN PRN Reason: Constipation Stop: 06/20/25 17:03 Clopidogrel Bisulfate (Clopidogrel Bisulfate 75 Mg Tablet) 75 mg PO DAILY ERNESTINA Stop: 06/21/25 08:59 Last Admin: 06/21/24 09:07 Dose: 75 mg Dapagliflozin (Dapagliflozin 10 Mg Tablet) 10 mg PO QAM ERNESTINA Stop: 06/21/25 08:59 Last Admin: 06/21/24 09:07 Dose: 10 mg Diphenhydramine HCl (Diphenhydramine 25 Mg Capsule) 25 mg PO HS PRN PRN Reason: Sleep Stop: 06/20/25 20:52 Last Admin: 06/20/24 21:07 Dose: 25 mg Docusate Sodium (Docusate 100 Mg Capsule) 100 mg PO BID PRN PRN Reason: Constipation Stop: 06/20/25 17:03 Docusate Sodium (Docusate Enema 283 Mg/5 Ml Enema) 283 mg PA DAILY PRN PRN Reason: Constipation Stop: 06/20/25 17:03 Dorzolamide HCl (Dorzolamide 2% Op Soln 200 Drops/10 Ml Bottle) 1 drops EYE-BOTH DAILY ERNESTINA Stop: 06/21/25 08:59 Last Admin: 06/21/24 09:06 Dose: 1 drops Insulin Aspart (Insulin Aspart 300 Units/3 Ml) 0 units SUBCUT TID..HS [facility]; Protocol Stop: 06/20/25 21:59 Last Admin: 06/21/24 09:04 Dose: Not Given Isosorbide Mononitrate (Isosorbide Mononitrate 24hr Er 60 Mg Tab.Er.24h) 60 mg PO DAILY.6A [facility] Stop: 06/21/25 05:59 Last Admin: 06/21/24 05:26 Dose: 60 mg Lactulose (Lactulose 20 Gm/30 Ml Udc) 30 gm PO DAILY PRN PRN Reason: Constipation Stop: 06/20/25 17:03 Metformin HCl (Metformin 500 Mg Tablet) 500 mg PO DAILY [facility] Stop: 06/21/25 08:59 Last Admin: 06/21/24 09:07 Dose: 500 mg Metoprolol Succinate (Metoprolol Succinate 50 Mg Tab.Er.24h) 50 mg PO DAILY [facility] Stop: 06/21/25 08:59 Last Admin: 06/21/24 09:05 Dose: 50 mg Ondansetron HCl (Ondansetron Odt 4 Mg Tab.Rapdis) 4 mg PO Q6HR PRN PRN Reason: Nausea And Vomiting Stop: 06/21/25 08:17 Potassium Chloride (Potassium Chloride Er 20 Meq Tab.Er.Prt) 20 meq PO DAILY [facility] Stop: 06/21/25 08:59 Last Admin: 06/21/24 09:07 Dose: 20 meq Sacubitril/Valsartan (Sacubitril/Valsartan 24-26mg 1 Tab Tablet) 1 tab PO BID [facility] Stop: 06/20/25 20:59 Last Admin: 06/21/24 09:07 Dose: 1 tab Sennosides (Sennosides 8.6 Mg Tablet) 17.2 mg PO DAILY@12 PRN PRN Reason: If no BM in 2 days Stop: 06/21/25 11:59 Sodium Chloride (Sodium Chloride 0.9 % 10 Ml Syringe) 0 ml IV-PUSH PRN PRN PRN Reason: Flush Stop: 06/20/25 17:03 Sodium Chloride (Sodium Chloride 0.9 % 10 Ml Syringe) 10 ml IV-PUSH BID [facility] Stop: 06/21/25 08:59 Last Admin: 06/21/24 09:09 Dose: 10 ml Spironolactone (Spironolactone 25 Mg Tablet) 25 mg PO DAILY [facility] Stop: 06/21/25 08:59 Last Admin: 06/21/24 09:07 Dose: 25 mg Timolol Maleate (Timolol Mal 0.5% Op Soln 100 Drops/5 Ml Bottle) 1 drops EYE- BOTH DAILY [facility] Stop: 06/21/25 08:59 Last Admin: 06/21/24 09:09 Dose: 1 drops Vitamin D (Cholecalciferol 25 Mcg (1,000 Units) Tablet) 25 mcg PO DAILY ERNESTINA Stop: 06/21/25 08:59 Last Admin: 06/21/24 09:07 Dose: 25 mcg Warfarin Sodium (Warfarin - Pharmacy Dosing) 1 each MISCELLANE PRN PRN; Protocol PRN Reason: zz.Pharmacy Note Stop: 06/21/25 08:43 Warfarin Sodium (Warfarin 2.5 Mg Tablet) 2.5 mg PO ONCE ONE Stop: 06/21/24 17:01 Exam Physical Exam Vital Signs: Temp Pulse Resp BP Pulse Ox O2 Del Method 97.8 F 67 17 139/82 96 Room Air 06/21/24 03:56 06/21/24 03:56 06/21/24 03:56 06/21/24 03:56 06/21/24 03:56 06/21/24 03:56 Narrative: General: Awake, A&O x 3, pleasant, cooperative, well nourished. Resting comfortably in bed HENT: NC, AT Eyes: No scleral icterus Neck: Supple Cardio: Extremities well perfused Respiratory: CTAB, no wheezes rhonchi or rales. No evidence of respiratory distress GI: Soft, nontender, nondistended Neuro: CN II-XII intact. Noted right sided weakness compared to left Extremities: No edema, erythema, cyanosis Psych: Affect, speech and movements normal. Mood congruent Results - Phys. Rehab Labs Labs: Laboratory Results - last 24 hr 06/20/24 06/21/24 06/21/24 20:15 04:55 06:13 Corrected WBC 12.8 H Uncorrected WBC Count 12.8 H RBC 3.73 Hgb 11.4 L Hct 34.5 MCV 92.5 MCH 30.5 MCHC 33.0 RDW 14.4 Plt Count 291 MPV 8.3 Neut % (Auto) 79.0 Lymph % (Auto) 7.6 [place] % (Auto) 11.9 Eos % (Auto) 1.2 Baso % (Auto) 0.3 Nucleat RBC Rel Count 0.2 Neut # (Auto) 10.1 H Lymph # (Auto) 1.0 [place] # (Auto) 1.5 H Eos # (Auto) 0.2 Baso # (Auto) 0.0 PT 26.8 H INR 2.4 PHA Creatinine Clear 50.08 Sodium 133 L Potassium 3.6 Chloride 94 L Carbon Dioxide 31.2 H Anion Gap 11.4 BUN 32 H Creatinine 1.01 Est GFR (CKD-EPI) 56.980 Glucose 137 H POC Glucose 140 126 POC Glucose Comment Glu2: cleaned meter Calcium 8.9 Total Bilirubin 0.9 AST 44 H ALT 258 H Alkaline Phosphatase 176 H Total Protein 5.9 L Albumin 3.3 L Globulin 2.6 Albumin/Globulin Ratio 1.3 Prealbumin 11.8 L Additional Results Results Comment: I reviewed clinical lab tests, radiology reports and obtained and summated medical records and have ordered follow up lab tests and imaging studies as needed for rehabilitation care. Individualized Plan of Care Individualized Plan of Care Plan of Care: Individualized Overall Plan of Care: Admit Date/Time: 06/20/24 Expected LOS: 10 Days Expected Discharge Destination: Home Rehabilitation IGC: 3.8 Primary Diagnosis: as above Patient?s/Family?s anticipated outcomes/personal goals: To have patient become more independent and to return home. Medical/ Functional Prognosis: Good Anticipated Functional Outcomes/Goals and Interventions: -Therapy Functional Outcome/Goal: Mobility/Locomotion: Patient likely to be independent with ambulation with assistive device. Anticipated interventions: Physician management, PT, OT, Dietitian, Rehab Nursing - Therapy Functional Outcome/Goal: Self Care: Patient likely to be functionally independent for activities of daily living using assistive / adaptive equipment as needed. Anticipated interventions: Physician management, PT, OT, Dietitian, Rehab Nursing - Therapy Functional Outcome/Goal: Bladder/Bowel Management: Patient likely to be independent with bladder care and independent with bowel care. Anticipated interventions: Physician management, PT, OT, Dietitian, Rehab Nursing -Therapy Functional Outcome/Goal: Communication/Cognition: Patient will be able to communicate fully and be safe cognitively. Anticipated interventions: Physician management, PT, OT, Dietitian, Rehab Nursing -Therapy Functional Outcome/Goal: Patient will be independent for bed mobility and transfers Anticipated interventions: Physician management, PT, OT, Dietitian, Rehab Nursing -Therapy Functional Outcome/Goal: Patient will improve endurance to be able to tolerate all daily self care activities and avocational activities. Anticipated interventions: Physician management, PT, OT, Nutrition, Rehab Nursing -Therapy Functional Outcome/Goal: Patient will understand and assimilate / integrate education regarding management of their medical conditions to maintainhealth and wellbeing. Anticipated interventions: Physician management, PT, OT, Dietitian, Rehab Nursing Required Therapy PT: 1.5 hour per day at least 5 days per week with additional therapy on as needed basis. Comments: PT to improve pt's strength, endurance, bed mobility, transfers (sit-stand), standing balance, gait quality on level surfaces and stairs, coordination and functional ADL skills. Will also work to improve pt's safety awareness during transfers and ambulation. OT: 1.5 hour per day at least 5 days per week with additional therapy on as needed basis. Comments: OT for basic ADL re-training (bathing, dressing, toileting, continence, grooming, feeding, transferring), to increase activity tolerance andfunctional mobility and to evaluate for adaptive and assistive devices. Will work to improve pt's endurance and educate pt on fall prevention and energy conservation techniques-pacing strategies and proper breathing techniques duringfunctional tasks. Other: Nutrition, Rehab nursing, Wound, P&O RATIONALE FOR IRF ADMISSION: Patient has both medical and functional complexities that require 24 hour daily monitoring and intervention from Sweater Designer as well as other consulting physicians including internal medicine as well as 24 hour daily conveyor worker nursing - for medical safe / optimal management. Patient requires interdisciplinary therapy team rehabilitation care including OT, PT, SW, Rehab Nursing, requires and can tolerate at least 3 hoursof daily OT and PT therapy at least 5 days weekly. The following medical conditions significantly impact the rehabilitation process and are being addressed daily and can not be managed at home or in a lesser intense medical setting: Refer to above problem oriented plan of care Assessment/Plan (1) Impaired mobility and activities of daily living: (2) Critical illness myopathy: (3) Essential hypertension: (4) 3-vessel coronary artery disease: (5) Multisystem organ failure: (6) Liver failure: (7) Respiratory failure: (8) COVID-19: (9) Sepsis: (10) Type 2 diabetes mellitus with hyperglycemia: Qualifiers: Diabetes mellitus assisted insulin use: without assisted use Qualified Code(s): E11.65 - Type 2 diabetes mellitus with hyperglycemia (11) Essential (primary) hypertension: (12) Atrial fibrillation: Plan This is a 78-year-old female who presents to [facility] IRF due to multifactorial functional decline in the setting of complex hospitalization with COVID-19 infection, cardiogenic shock, NSTEMI, KARIS, acute liver failure, and 3 vessel CAD. She has continued impaired mobility and impaired independence with ADLs and IADLs requiring PT/OT 5-7 days/week 3 hours/day to maximize safety and independence with functional ability and self-care. -PT to improve patient's strength, endurance, bed mobility, transfers (sit- stand), standing balance, gait quality on level surfaces and stairs, coordination and functional ADL skills. We will also work to improve patient's safety awareness during transfers and ambulation. -OT for basic ADL retraining (bathing, dressing, toileting, continence, grooming, feeding, transferring), to increase activity tolerance and functional mobility to evaluate for adaptive assistive device. We will work to improve patient's endurance and educate patient on fall prevention and energy conservation techniques-pacing strategies and proper breathing techniques duringfunctional tasks. -Patient education -Pressure ulcer prophylaxis; encourage mobilization, frequent postural changes, pressure-relief techniques -DVT prophylaxis -Encourage deep breathing exercise incentive spirometry. -Monitor bladder. Toileting schedule. Continue current bladder management, with scans as needed and CIC if needed. Start bowel care program every day to obtain continence, prevent ileus. -Maintain fall precautions -Gait and balance retraining -Provision of the necessary gait aids and functional adaptive equipment to enhance the patient's a functional bahai -Encourage deep breathing exercises and incentive spirometry -RD evaluation -Ensure adequate nutrition and hydration -Discharge planning. #. UPDATES -Admission labs reviewed. Liver enzymes still elevated although trending down. INR 2.4 today. -Continue medical management for CAD. Plavix,Metoprolol, Entresto, Aldactone, Imdur. Can resume Lipitor when LFTs improved -Continue Metformin for diabetes -Hospitalist to assist with management of comorbid medical conditions -Continue PT/OT as ordered -Will DC Huber catheter today #. Pain control: Tylenol PRN #. Bowel and bladder: Will DC Huber catheter today #. Skin: (pressure ulcer/surgical site) Pressure ulcer prophylaxis; encourage mobilization, frequent postural changes, pressure-relief techniques #. Sleep: Optimize sleep/wake cycle DVT prophylaxis: Warfarin Functional status: Impaired. Limited by pain, weakness Discharge planning: ELOS 1-2 weeks Patient was personally seen by me, Dr. Castellanos, on the day of encounter, within 24 hours of rehab admission, reviewed the history and the relevant portions of the chart, including current orders, allied health and infrastructure consultant notes, labs/imaging and performed august elements of exam and I formulated the planof care and facilitated the medical decision making. I completed a substantive portion of this encounter, the medical decision makingportion of this note in its entirety, including Allied health note review, nursing note review, infrastructure consultant note review, discussion with nursing and case management, and more than 50% of my time was spent on counseling and coordination of care, time spent 70 minutes Documented By: David Castellanos MD [id number] Signed By: <Electronically signed by David Castellanos MD> 06/21/24 1408 [facility] Work Phone: [phone] [place] [address] Physiatry (Rehab) H&P Signed Patient: Lyric Juarez MR#: [id number] : 1945 Acct:[id number] Age/Sex: 78 / F Adm Date: 5 Loc: Room: 7B5243-7 Type: ADM IN Attending Dr: David Castellanos MD Copies to: MD Felipe Vines MD~ Date of Service: 06/21/2024 HPI History of Present Illness: Patient is 78-year-old female who presents with multifactorial functional decline in the setting ofCOVID-19 infection, severe CAD, septic shock. The patient initially presented to [facility] after a fall. Was found to be in afib with RVR, positive for COVID-19, as welll as significant troponin elevation. She was therefore transferred to [facility] for further care. Upon presentation, she sustained a syncopal episode. She was noted to be hypotensive and required pressor support. Blood cultures and broad-spectrum antibiotics were administered for presumed sepsis. However, an echocardiogram showed ejection fraction of 35%, with suggestion of apical ballooning syndrome/Takotsubo cardiomyopathy. Patient was seen by cardiology, and after elective endotracheal intubation as she could not lay flat, coronary angiogram was later performed on June 15, disclosing severe multiplevessel disease, including total occlusion of mid LAD, total occlusion of proximal RCA, 95% left circumflex stenosis. Patient was not felt to be a candidate for immediate revascularization or CABG dueto her coronary anatomy. Medical therapy was recommended. The patient gradually improved. PM&R was consulted for evaluation for rehab. The patient was seen upon admission to the rehab unit. She is resting comfortably in bed in no distress. Reports that she is doing well today. No chest pain, SOB, fever, chills. Admits to some nausea. Currently has a huber catheter placed. [facility] Medical History Type 2 diabetes mellitus with hyperglycemia Paroxysmal atrial fibrillation (09/20/15) Other specified anxiety disorders (02/05/18) Hyperlipidemia, unspecified (09/20/15) History of falling Essential (primary) hypertension Erythrasma (11/09/17) Surgical History History of cholecystectomy Family History Father Mother Social History Smoking Status: Never smoker Substance Use Type: None Meds Medications and Allergies Allergies flecainide Allergy (Unknown, Verified 05/17/24 08:07) Hives Home and Active Meds: Home Medications lancets 30 gauge (OneTouch Delica Plus Lancet) #100 ea 04/19/24 [History Confirmed 05/17/24] potassium chloride 20 mEq tablet,extended release(part/cryst) (Klor-Con M) 20 meq PO DAILY 04/19/24[History Confirmed 06/20/24] warfarin 2.5 mg tablet 2.5 mg PO DAILY 04/19/24 [History Confirmed 06/20/24] cholecalciferol (vitamin D3) 25 mcg (1,000 unit) capsule 25 mcg PO DAILY 04/20/24 [History Confirmed 06/20/24] metformin 500 mg tablet,extended release 24 hr 500 mg PO DAILY #30 tabs 05/17/24[Rx Confirmed 06/20/24] blood sugar diagnostic (OneTouch Verio test strips) #100 strips 06/01/24 [Rx] dorzolamide-timolol (PF) 2 %-0.5 % eye drops in a dropperette 1 drp Eye-Both DAILY 06/11/24 [History Confirmed 06/20/24] atorvastatin 80 mg tablet 80 mg PO QPM #0 tabs 06/20/24 [Rx Confirmed 06/20/24] clopidogrel 75 mg tablet 75 mg PO DAILY #0 tabs 06/20/24 [Rx Confirmed 06/20/24] empagliflozin 25 mg tablet (Jardiance) 25 mg PO QAM #360 tabs 06/20/24 [Rx Confirmed 06/20/24] insulin aspart U-100 100 unit/mL (3 mL) subcutaneous pen See Protocol subcut ACHS #0 mL 06/20/24 [Rx] isosorbide mononitrate 60 mg tablet,extended release 24 hr 60 mg PO DAILY.6A #0 tabs 06/20/24 [Rx Confirmed 06/20/24] metoprolol succinate 50 mg tablet,extended release 24 hr 50 mg PO DAILY #0 tabs 06/20/24 [Rx Confirmed 06/20/24] sacubitril 24 mg-valsartan 26 mg tablet (Entresto) 1 tab PO BID #0 tabs 06/20/24[Rx Confirmed 06/20/24] spironolactone 25 mg tablet 25 mg PO DAILY #0 tabs 06/20/24 [Rx Confirmed 06/20/24] Active Medications Acetaminophen (Acetaminophen 500 Mg Tablet) 500 mg PO Q4H PRN PRN Reason: Pain Stop: 06/20/25 17:03 Al Hydrox/Mg Hydrox/Simethicone (Mag Hydrox/Al Hydrox/Simeth 30 Ml Udc) 30 ml PO Q4H PRN PRN Reason: Indigestion Stop: 06/20/25 17:03 Atorvastatin Calcium (Atorvastatin 80 Mg Tablet) 80 mg PO QPM ERNESTINA Stop: 06/27/25 20:59 Bisacodyl (Bisacodyl 10 Mg Supp.Rect) 10 mg PA DAILY PRN PRN Reason: Constipation Stop: 06/20/25 17:03 Clopidogrel Bisulfate (Clopidogrel Bisulfate 75 Mg Tablet) 75 mg PO DAILY [facility] Stop: 06/21/25 08:59 Last Admin: 06/21/24 09:07 Dose: 75 mg Dapagliflozin (Dapagliflozin 10 Mg Tablet) 10 mg PO QAM [facility] Stop: 06/21/25 08:59 Last Admin: 06/21/24 09:07 Dose: 10 mg Diphenhydramine HCl (Diphenhydramine 25 Mg Capsule) 25 mg PO HS PRN PRN Reason: Sleep Stop: 06/20/25 20:52 Last Admin: 06/20/24 21:07 Dose: 25 mg Docusate Sodium (Docusate 100 Mg Capsule) 100 mg PO BID PRN PRN Reason: Constipation Stop: 06/20/25 17:03 Docusate Sodium (Docusate Enema 283 Mg/5 Ml Enema) 283 mg PA DAILY PRN PRN Reason: Constipation Stop: 06/20/25 17:03 Dorzolamide HCl (Dorzolamide 2% Op Soln 200 Drops/10 Ml Bottle) 1 drops EYE-BOTH DAILY [facility] Stop: 06/21/25 08:59 Last Admin: 06/21/24 09:06 Dose: 1 drops Insulin Aspart (Insulin Aspart 300 Units/3 Ml) 0 units SUBCUT TID.[facility]; Protocol Stop: 06/20/25 21:59 Last Admin: 06/21/24 09:04 Dose: Not Given Isosorbide Mononitrate (Isosorbide Mononitrate 24hr Er 60 Mg Tab.Er.24h) 60 mg PO DAILY.6A [facility] Stop: 06/21/25 05:59 Last Admin: 06/21/24 05:26 Dose: 60 mg Lactulose (Lactulose 20 Gm/30 Ml Udc) 30 gm PO DAILY PRN PRN Reason: Constipation Stop: 06/20/25 17:03 Metformin HCl (Metformin 500 Mg Tablet) 500 mg PO DAILY [facility] Stop: 06/21/25 08:59 Last Admin: 06/21/24 09:07 Dose: 500 mg Metoprolol Succinate (Metoprolol Succinate 50 Mg Tab.Er.24h) 50 mg PO DAILY [facility] Stop: 06/21/25 08:59 Last Admin: 06/21/24 09:05 Dose: 50 mg Ondansetron HCl (Ondansetron Odt 4 Mg Tab.Rapdis) 4 mg PO Q6HR PRN PRN Reason: Nausea And Vomiting Stop: 06/21/25 08:17 Potassium Chloride (Potassium Chloride Er 20 Meq Tab.Er.Prt) 20 meq PO DAILY ERNESTINA Stop: 06/21/25 08:59 Last Admin: 06/21/24 09:07 Dose: 20 meq Sacubitril/Valsartan (Sacubitril/Valsartan 24-26mg 1 Tab Tablet) 1 tab PO BID ERNESTINA Stop: 06/20/25 20:59 Last Admin: 06/21/24 09:07 Dose: 1 tab Sennosides (Sennosides 8.6 Mg Tablet) 17.2 mg PO DAILY@12 PRN PRN Reason: If no BM in 2 days Stop: 06/21/25 11:59 Sodium Chloride (Sodium Chloride 0.9 % 10 Ml Syringe) 0 ml IV-PUSH PRN PRN PRN Reason: Flush Stop: 06/20/25 17:03 Sodium Chloride (Sodium Chloride 0.9 % 10 Ml Syringe) 10 ml IV-PUSH BID ERNESTINA Stop: 06/21/25 08:59 Last Admin: 06/21/24 09:09 Dose: 10 ml Spironolactone (Spironolactone 25 Mg Tablet) 25 mg PO DAILY [facility] Stop: 06/21/25 08:59 Last Admin: 06/21/24 09:07 Dose: 25 mg Timolol Maleate (Timolol Mal 0.5% Op Soln 100 Drops/5 Ml Bottle) 1 drops EYE- BOTH DAILY ERNESTINA Stop: 06/21/25 08:59 Last Admin: 06/21/24 09:09 Dose: 1 drops Vitamin D (Cholecalciferol 25 Mcg (1,000 Units) Tablet) 25 mcg PO DAILY ERNESTINA Stop: 06/21/25 08:59 Last Admin: 06/21/24 09:07 Dose: 25 mcg Warfarin Sodium (Warfarin - Pharmacy Dosing) 1 each MISCELLANE PRN PRN; Protocol PRN Reason: zz.Pharmacy Note Stop: 06/21/25 08:43 Warfarin Sodium (Warfarin 2.5 Mg Tablet) 2.5 mg PO ONCE ONE Stop: 06/21/24 17:01 Exam Physical Exam Vital Signs: Temp Pulse Resp BP Pulse Ox O2 Del Method 97.8 F 67 17 139/82 96 Room Air 06/21/24 03:56 06/21/24 03:56 06/21/24 03:56 06/21/24 03:56 06/21/24 03:56 06/21/24 03:56 Narrative: General: Awake, A&O x 3, pleasant, cooperative, well nourished. Resting comfortably in bed HENT: NC, AT Eyes: No scleral icterus Neck: Supple Cardio: Extremities well perfused Respiratory: CTAB, no wheezes rhonchi or rales. No evidence of respiratory distress GI: Soft, nontender, nondistended Neuro: CN II-XII intact. Noted right sided weakness compared to left Extremities: No edema, erythema, cyanosis Psych: Affect, speech and movements normal. Mood congruent Results - Phys. Rehab Labs Labs: Laboratory Results - last 24 hr 06/20/24 06/21/24 06/21/24 20:15 04:55 06:13 Corrected WBC 12.8 H Uncorrected WBC Count 12.8 H RBC 3.73 Hgb 11.4 L Hct 34.5 MCV 92.5 MCH 30.5 MCHC 33.0 RDW 14.4 Plt Count 291 MPV 8.3 Neut % (Auto) 79.0 Lymph % (Auto) 7.6 [place] % (Auto) 11.9 Eos % (Auto) 1.2 Baso % (Auto) 0.3 Nucleat RBC Rel Count 0.2 Neut # (Auto) 10.1 H Lymph # (Auto) 1.0 [place] # (Auto) 1.5 H Eos # (Auto) 0.2 Baso # (Auto) 0.0 PT 26.8 H INR 2.4 PHA Creatinine Clear 50.08 Sodium 133 L Potassium 3.6 Chloride 94 L Carbon Dioxide 31.2 H Anion Gap 11.4 BUN 32 H Creatinine 1.01 Est GFR (CKD-EPI) 56.980 Glucose 137 H POC Glucose 140 126 POC Glucose Comment Glu2: cleaned meter Calcium 8.9 Total Bilirubin 0.9 AST 44 H ALT 258 H Alkaline Phosphatase 176 H Total Protein 5.9 L Albumin 3.3 L Globulin 2.6 Albumin/Globulin Ratio 1.3 Prealbumin 11.8 L Additional Results Results Comment: I reviewed clinical lab tests, radiology reports and obtained and summated medical records and haveordered follow up lab tests and imaging studies as needed for rehabilitation care. Individualized Plan of Care Individualized Plan of Care Plan of Care: Individualized Overall Plan of Care: Admit Date/Time: 06/20/24 Expected LOS: 10 Days Expected Discharge Destination: Home Rehabilitation [facility]: 3.8 Primary Diagnosis: as above Patient?s/Family?s anticipated outcomes/personal goals: To have patient become more independent and to return home. Medical/ Functional Prognosis: Good Anticipated Functional Outcomes/Goals and Interventions: -Therapy Functional Outcome/Goal: Mobility/Locomotion: Patient likely to be independent with ambulation with assistive device. Anticipated interventions: Physician management, PT, OT, Dietitian, Rehab Nursing - Therapy Functional Outcome/Goal: Self Care: Patient likely to be functionally independent for activities of daily living using assistive / adaptive equipment as needed. Anticipated interventions: Physician management, PT, OT, Dietitian, Rehab Nursing - Therapy Functional Outcome/Goal: Bladder/Bowel Management: Patient likely to be independent with bladder care and independent with bowel care. Anticipated interventions: Physician management, PT, OT, Dietitian, Rehab Nursing -Therapy Functional Outcome/Goal: Communication/Cognition: Patient will be able to communicate fully and be safe cognitively. Anticipated interventions: Physician management, PT, OT, Dietitian, Rehab Nursing -Therapy Functional Outcome/Goal: Patient will be independent for bed mobility and transfers Anticipated interventions: Physician management, PT, OT, Dietitian, Rehab Nursing -Therapy Functional Outcome/Goal: Patient will improve endurance to be able to tolerate all daily self care activities and avocational activities. Anticipated interventions: Physician management, PT, OT, Nutrition, Rehab Nursing -Therapy Functional Outcome/Goal: Patient will understand and assimilate / integrate education regarding management of their medical conditions to maintainhealth and wellbeing. Anticipated interventions: Physician management, PT, OT, Dietitian, Rehab Nursing Required Therapy PT: 1.5 hour per day at least 5 days per week with additional therapy on as needed basis. Comments: PT to improve pt's strength, endurance, bed mobility, transfers (sit- stand), standing balance, gait quality on level surfaces and stairs, coordination and functional ADL skills. Will also work to improve pt's safety awareness during transfers and ambulation. OT: 1.5 hour per day at least 5 days per week with additional therapy on as needed basis. Comments: OT for basic ADL re-training (bathing, dressing, toileting, continence, grooming, feeding, transferring), to increase activity tolerance andfunctional mobility and to evaluate for adaptive and assistive devices. Will work to improve pt's endurance and educate pt on fall prevention and energy conservation techniques-pacing strategies and proper breathing techniques duringfunctional tasks. Other: Nutrition, Rehab nursing, Wound, P&O RATIONALE FOR IRF ADMISSION: Patient has both medical and functional complexities that require 24 hour daily monitoring and intervention from Sweater Designer as well as other consulting physicians including internal medicine as well as 24 hour daily conveyor worker nursing - for medical safe / optimal manageme nt. Patient requires interdisciplinary therapy team rehabilitation care including OT, PT, SW, RehabNursing, requires and can tolerate at least 3 hoursof daily OT and PT therapy at least 5 days weekly. The following medical conditions significantly impact the rehabilitation process and are being addressed daily and can not be managed at home or in a lesser intense medical setting: Refer to above problem oriented plan of care Assessment/Plan (1) Impaired mobility and activities of daily living: (2) Critical illness myopathy: (3) Essential hypertension: (4) 3-vessel coronary artery disease: (5) Multisystem organ failure: (6) Liver failure: (7) Respiratory failure: (8) COVID-19: (9) Sepsis: (10) Type 2 diabetes mellitus with hyperglycemia: Qualifiers: Diabetes mellitus cra officer insulin use: without assisted use Qualified Code(s): E11.65 - Type 2 diabetes mellitus with hyperglycemia (11) Essential (primary) hypertension: (12) Atrial fibrillation: Plan This is a 78-year-old female who presents to [facility] IRF due to multifactorial functional decline in the setting of complex hospitalization with COVID-19 infection, cardiogenic shock, NSTEMI, KARIS, acute liver failure, and 3 vessel CAD. She has continued impaired mobility and impaired independence with ADLs and IADLs requiring PT/OT 5-7 days/week 3 hours/day to maximize safety and independence with functional ability and self-care. -PT to improve patient's strength, endurance, bed mobility, transfers (sit- stand), standing balance, gait quality on level surfaces and stairs, coordination and functional ADL skills. We will also work to improve patient's safety awareness during transfers and ambulation. -OT for basic ADL retraining (bathing, dressing, toileting, continence, grooming, feeding, transferring), to increase activity tolerance and functional mobility to evaluate for adaptive assistive device. We will work to improve patient's endurance and educate patient on fall prevention and energy co nservation techniques-pacing strategies and proper breathing techniques duringfunctional tasks. -Patient education -Pressure ulcer prophylaxis; encourage mobilization, frequent postural changes, pressure-relief techniques -DVT prophylaxis -Encourage deep breathing exercise incentive spirometry. -Monitor bladder. Toileting schedule. Continue current bladder management, with scans as needed andCIC if needed. Start bowel care program every day to obtain continence, prevent ileus. -Maintain fall precautions -Gait and balance retraining -Provision of the necessary gait aids and functional adaptive equipment to enhance the patient's a functional bahai -Encourage deep breathing exercises and incentive spirometry -RD evaluation -Ensure adequate nutrition and hydration -Discharge planning. #. UPDATES -Admission labs reviewed. Liver enzymes still elevated although trending down. INR 2.4 today. -Continue medical management for CAD. Plavix,Metoprolol, Entresto, Aldactone, Imdur. Can resume Lipitor when LFTs improved -Continue Metformin for diabetes -Hospitalist to assist with management of comorbid medical conditions -Continue PT/OT as ordered -Will DC Huber catheter today #. Pain control: Tylenol PRN #. Bowel and bladder: Will DC Huber catheter today #. Skin: (pressure ulcer/surgical site) Pressure ulcer prophylaxis; encourage mobilization, frequent postural changes, pressure-relief techniques #. Sleep: Optimize sleep/wake cycle DVT prophylaxis: Warfarin Functional status: Impaired. Limited by pain, weakness Discharge planning: ELOS 1-2 weeks Patient was personally seen by me, Dr. Castellanos, on the day of encounter, within 24 hours of rehab admission, reviewed the history and the relevant portions of the chart, including current orders, allied health and infrastructure consultant notes, labs/imaging and performed august elements of exam and I formulatedthe planof care and facilitated the medical decision making. I completed a substantive portion of this encounter, the medical decision makingportion of this note in its entirety, including Allied health note review, nursing note review, infrastructure consultant note review,discussion with nursing and case management, and more than 50% of my time was spent on counseling and coordination of care, time spent 70 minutes Documented By: David Castellanos MD [id number] Signed By: 06/21/24 1408 [facility]02-10-2025 Discharge summary Author Sebastien Cardenas [facility] Note Date/Time June 20, 2024 3:00pm [facility] [address] [place] [address] Discharge Summary Signed Patient: Lyric Juarez MR#: [id number] : 1945 Acct:[id number] Age/Sex: 78 / F Adm Date: 5 Loc: Room: [address] [place] [address]: Sebastien Cardenas MD Copies to: MD Felipe Coe MD~ Providers Date of Discharge: 06/20/24 Discharging Provider: Sebastien Cardenas Primary Care Provider: Felipe Johnson Consults: 06/12/24 00:34 Consult to Cardiology Routine Comment: Consulting Provider: [facility] [employer], [facility] Reason For Exam: afib with RVR, elevated troponin, ?myocarditis Has Provider Been Notified: Yes Date of Notification: 06/12/24 Time of Notification: 07:23 Consult to Occupational Therapy Routine Comment: Physician Instructions: Consult to OT for:: Evaluation and Treat Consult to Physical Therapy Routine Comment: Physician Instructions: Consult to PT for:: Evaluation and Treat 06/12/24 04:52 Consult to Pulmonology Routine Comment: Consulting Provider: Kris Everett Reason For Exam: Critical Care Management Has Provider Been Notified: Yes Date of Notification: 06/12/24 Time of Notification: 07:19 06/13/24 18:58 Consult to Nephrology Routine Comment: Consulting Provider: Franca Velázquez Has Provider Been Notified: Yes Date of Notification: 06/14/24 Time of Notification: 07:07 Reason for Consult: Hyper/Hypo Natremia 06/14/24 15:44 Consult to Gastroenterology Routine Comment: Consulting Provider: Joselo Watson Reason For Exam: elevated LFTs Has Provider Been Notified: Yes Date of Notification: 06/14/24 Time of Notification: 16:14 06/17/24 05:12 Consult to Speech Therapy Routine Comment: Reason for ST Consult: Bedside Swallow Eval & Tx Diet per ST Recommendations: Yes Modified Barium Swallow Study, If Recommended: Yes 06/17/24 09:27 Consult to Occupational Therapy Routine Comment: Physician Instructions: Consult to OT for:: Evaluation and Treat Consult to Physical Therapy Routine Comment: Physician Instructions: Consult to PT for:: Evaluation and Treat 06/20/24 09:44 Consult to Physiatry Routine Comment: Consulting Provider: [facility] - Phys Med - Rehab Reason For Exam: rehab needs/post acute care planning Has Provider Been Notified: Yes Date of Notification: 06/20/24 Time of Notification: 09:44 Discharge Diagnosis Final Diagnosis Final Discharge Diagnosis: COVID-19 infection A-fib RVR Non-STEMI type I, severe CAD/triple-vessel, with severe ischemic cardiomyopathy,acute decompensated HFrEF ejection fraction 35%, and cardiogenic shock Acute hypoxic respiratory failure KARIS on CKD stage IIIa Ischemic hepatitis in the setting of shock with coagulopathy Chronic problems CKD stage IIIa Diabetes type 2 Dyslipidemia Hypertension Paroxysmal A-fib on Coumadin Summary Hospital Course Hospital course: Patient is 78-year-old female, who presented to the emergency department of [facility] after she sustained a fall. Initial evaluation revealed A-fibRVR, COVID-19 infection and was also notable for a troponin elevation in the thousands. She was transferred to our facility for further evaluation. A syncopal event occurred while in the hospital, she was found to be hypotensive and was administered fluid, transferred to the ICU where she received also pressor therapy. Blood cultures and broad-spectrum antibiotics were administered for presumed sepsis. However, an echocardiogram showed ejection fraction of 35%, with suggestion of apical ballooning syndrome/Takotsubo cardiomyopathy. Patient was seen by cardiology, and after elective endotracheal intubation as she could not lay flat, coronary angiogram was later performed on June 15, disclosing severe multiple vessel disease, including total occlusion of mid LAD, total occlusion of proximal RCA, 95% left circumflex stenosis. Patient was not felt to be a candidate for immediate revascularization or CABG due to her coronary anatomy. Medical therapy was recommended. Consideration will be given later on, to possible high risk angioplasty. Atrial fibrillation with rapid ventricular response present on admission resolved. Abnormal LFTs were felt to be secondary to hepatic hypoperfusion in the setting of shock. Broad-spectrum antibiotics were de-escalated, patient wastransition to medical floor, and ultimately she was discharged to the inpatient rehabilitation in stable condition. Medical therapy for CAD and CHF will be continued as noted below. Time Spent with Patient Time spent providing/coordinating discharge services (# min): 45 Surgeries and Procedures Operation Date: 06/15/24 08:15 Actual Procedures p CL Coronary Angio - Frandy Cabrera MD Discharge Plan Discharge Plan Patient Disposition: Rehab [facility] Activity: No Activity Restriction Diet: Diabetic, Low-Sodium and Other Comment: See speech therapy recommendations in discharge packet Additional Instructions: Statin may be initiated in 1 week upon normalization of LFTs. Rehab to manage: -PT/OT/ST to eval and treat -Monitor VS per protocol -Fall precautions -Routine assessments -Routine skin care and assessments -Monitor for increased signs of infection -Patient tested positive for COVID-19 on 06/11/24-- follow precautions -Monitor PT/INR daily-- pt on Coumadin -See speech therapy recommendations in discharge packet -Encourage cough and deep breathing -Monitor intake and output -Daily weight -Maintain and perform routine care to huber catheter-- placed on 06/18/24 for urinary retention *may perform voiding trials in rehab -Change dressing every 3 days: *Mepilex border foam to Coccyx for protection. -Monitor FSBS ACHS -Care to be managed by rehab providers. 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 1. You were given conscious sedation. Do not operate a vehicle, power tools, make important decisions, or drink alcohol for 24 hours. You might be drowsy orlight headed. Return to the Emergency Room if you have trouble breathing, walking or nausea and vomiting. 2. FOR BLEEDING: Apply continuous pressure to the site and call 911. 3. Operative Site Care: Keep the dressing clean and dry. You may change the dressing only if soiled or wet. You may remove the dressing the following morning. You may wash over the puncture site in the shower. If the puncture site is at the wrist no soaking for 3 days. Some bruising or slight swelling may be present. -Signs of infection are redness, warmth, swelling, getting more sore, colored drainage, fever or chills. -Should the arm or leg become cold, numb, blue or white, call the dispatch supervisor immediately. 4. ACTIVITY: You are advised to go directly home from the hospital. Restrict your activities for the rest of the day. Resume light or normal activities tomorrow. Do not engage in any activity that will stress the puncture site. Avoid heavy lifting (over 15 lbs.), straining or bending at the catheter site for 48 hours after discharge. If the puncture site is at the wrist do not manipulate wrist for 24 hours and no lifting more than 3 lbs for 3 days. 5. DIET:You may eat your regular diet when you desire. 6. MEDICATIONS: Resume your daily prescription schedule. Prescriptions may be sent with you if needed. Use as directed. When taking pain medications, you may experience dizziness or drowsiness. Do not drink alcohol or drive when taking pain medications. 7. If you should experience episodes of angina e.g. chest discomfort, heaviness, tightness, pressure, burning, with or without radiation to the neck, jaws, arms, or back- Use 1 Nitrostat under your tongue every 5-10 minutes, and up to 3 tablets. If no relief- Call 911 and go to the nearest Emergency Room. -Notify the office for recurrent angina, chest pain or other concerns. You may NOT drive yourself home! Follow the medication instructions provided on your discharge. If the dosages and instructions on this sheet differ from the dosage and instructions on the bottle, follow the instructions on the bottle. [facility] is not responsible for incorrect prescription information provided by thepatient during their visit. Do not stop your medications without consulting your health care provider. Please take the list with you to your next doctor's appointment. Instructions: [facility] COVID-19 Discharge Instructions Prescriptions: New atorvastatin 80 mg Tablet 80 mg PO QPM Qty: 0 0RF Rx Instructions: start 06/27/24, monitor LFT in 2 weeks thereafter clopidogrel 75 mg Tablet 75 mg PO DAILY Qty: 0 0RF insulin aspart U-100 100 unit/mL (3 mL) Insulin Pen See Protocol subcut ACHS Qty: 0 0RF Protocol: Corrective Scale #2 (TDI 26-50 UNITS) Condition: Corrective Scale #2 (TDI 26-50 UNITS) Condition: Dose/Route: Instruction: Condition: Fingerstick Blood Glucose Dose/Route: Insulin Units Condition: 150-199 mg/dl Dose/Route: 2 unit Condition: 200-249 mg/dl Dose/Route: 3 unit Condition: 250-299 mg/dl Dose/Route: 5 unit Condition: 300-349 mg/dl Dose/Route: 7 unit Condition: 350-399 mg/dl Dose/Route: 8 unit Condition: greater than or = 400 mg/dl Dose/Route: 9 unit Instruction: CallProvider Protocol Text: *If the corrective scale dose has been administered within the past 4 hours, do not use corrective scale again unless approved by prescriber* sacubitril-valsartan [Entresto] 24-26 mg Tablet 1 tab PO BID Qty: 0 0RF spironolactone 25 mg Tablet 25 mg PO DAILY Qty: 0 0RF Jardiance 25 mg tablet 25 mg PO QAM Qty: 360 0RF metoprolol succinate 50 mg Tablet Extended Release 24 Hr 50 mg PO DAILY Qty: 0 0RF isosorbide mononitrate 60 mg Tablet Extended Release 24 Hr 60 mg PO DAILY.6A Qty: 0 0RF Continued (DME) OneTouch Verio test strips Strip See Rx Instructions .ROUTE .COMPLEX Qty: 100 3RF Dose Instruction: USE TO TEST SUGAR ONCE A DAY Rx Instructions: USE TO TEST SUGAR ONCE A DAY dorzolamide-timolol (PF) 2-0.5 % dropperette 1 drp Eye-Both DAILY metformin 500 mg tablet extended release 24 hr 500 mg PO DAILY Qty: 30 2RF cholecalciferol (vitamin D3) 25 mcg (1,000 unit) capsule 25 mcg PO DAILY pravastatin 40 mg tablet 40 mg PO QHS warfarin 2.5 mg tablet 2.5 mg PO DAILY Patient Comments: Pt takes as directed. Current dose: Thursday: 1 tablet Thursday: 1/2 Tablet Thursday: 1 Tablet Thursday: 1/2 Tablet : 1 Tablet Thursday: 1 Tablet : 1 Tablet potassium chloride [Klor-Con M20] 20 mEq tablet,ER particles/crystals 20 meq PO DAILY (DME) lancets [OneTouch Delica Plus Lancet] 30 gauge misc See Rx Instructions .ROUTE .MEDSUPPLY Qty: 100 Rx Instructions: As directed Discontinued chlorthalidone 25 mg tablet 25 mg PO DAILY diltiazem HCl 300 mg capsule,extended release 24hr 300 mg PO DAILY lisinopril 10 mg tablet 10 mg PO DAILY Follow Up: Frandy Cabrera MD [Active Staff] - (you will need to be seen 7-14 days after discharge from Rehab Unit. Prior to your discharge have the Rehab unit call for a follow up . ) Felipe Johnson MD [Primary Care Provider] - (Please arrange a follow-up appointment once discharged from rehab. ) Elvis Philip MD [Active Staff] - (Please arrange a follow-up appointment once discharged from rehab. ) Exam Physical Exam Vital Signs: Temp Pulse Resp BP Pulse Ox O2 Del Method O2 Flow Rate 98.0 F 83 18 126/62 97 Room Air 2 06/20/24 11:28 06/20/24 13:59 06/20/24 11:28 06/20/24 13:59 06/20/24 11:28 06/20/24 11:28 06/19/24 09:00 FiO2 30 06/16/24 14:00 Diagnostic Studies Completed and Pending Studies Pending studies at discharge: 06/14/24 16:23 ECG 12 lead ECG Routine 06/21/24 05:00 Prothrombin Time INR IN AM 06/22/24 05:00 Prothrombin Time INR IN AM 06/23/24 05:00 Prothrombin Time INR IN AM Labs on day of discharge: 06/20/24 11:38: POC Glucose 261 06/20/24 08:54: POC Glucose 90 06/20/24 04:05: Corrected WBC 13.4 H, Uncorrected WBC Count 13.4 H, RBC 3.91, Hgb 12.0, Hct 36.0, MCV 92.1, MCH 30.7, MCHC 33.4, RDW 14.0, Plt Count 293, MPV 8.5, Neut % (Auto) 77.7, Lymph % (Auto) 9.5, [place] % (Auto) 11.6, Eos % (Auto) 1.0, Baso % (Auto) 0.2, Nucleat RBC Rel Count 0.7 H, Neut # (Auto) 10.4 H, Lymph# (Auto) 1.3, [place] # (Auto) 1.6 H, Eos # (Auto) 0.1, Baso # (Auto) 0.0, PT 34.4 H, INR 3.1, PHA Creatinine Clear 41.16, Sodium 135 L, Potassium 3.6, Chloride 95L, Carbon Dioxide 32.8 H, Anion Gap 10.8, BUN 42 H, Creatinine 1.20, Est GFR (CKD-EPI) 46.333, Glucose 82, Calcium 9.6, Total Bilirubin 0.8, AST 61 H, ALT 382 H, Alkaline Phosphatase 189 H, Total Protein 6.3 L, Albumin 3.5, Globulin 2.8, Albumin/Globulin Ratio 1.3 06/19/24 20:15: POC Glucose 154 06/19/24 17:11: POC Glucose 186 Documented By: Sebastien Cardenas MD 06/20/24 1449 Signed By: <Electronically signed by Sebastien Cardenas MD> 06/20/24 1500 [facility] Work Phone: [phone]) 610-807802-10-2025 Progress note Author Reilly Chanel [facility] Note Date/Time June 20, 2024 2:00pm [facility] [address] [place] [address] Progress Note Signed Patient: Lyric Juarez MR#: [id number] : 1945 Acct:[id number] Age/Sex: 78 / F Adm Date: 5 Loc: Room: [address] [place] [address] Type: ADM IN Attending Dr: Sebastien Cardenas MD Copies to: ~ Date of Service: 06/20/2024 Progress Narrative Note PROGRESS NOTE Progress Note: Patient is hemodynamically stable and on room air. She has been transferred outof the ICU. I have no further recommendations. Pulmonary/critical care medicine will sign off. Please call if we can be of further assistance. Documented By: Reilly Chanel MD [id number] Signed By: <Electronically signed by MD Reilly Chanel> 06/20/24 1400 [facility] Work Phone: 1(657) 804-762402-10-2025 [place] [id number] Discharge Summary Signed Patient: Lyric Juarez MR#: [id number] : 1945 Acct:[id number] Age/Sex: 78 / F Adm Date: 5 Loc: 4N Room: 3S7393-[address]: Sebastien Cardenas MD Copies to: MD Felipe Coe MD~ Providers Date of Discharge: 06/20/24 Discharging Provider: Sebastien Cardenas Primary Care Provider: Felipe Johnson Consults: 06/12/24 00:34 Consult to Cardiology Routine Comment: Consulting Provider: [facility] [employer], [facility] Reason For Exam: afib with RVR, elevated troponin, ?myocarditis Has Provider Been Notified: Yes Date of Notification: 06/12/24 Time of Notification: 07:23 Consult to Occupational Therapy Routine Comment: Physician Instructions: Consult to OT for:: Evaluation and Treat Consult to Physical Therapy Routine Comment: Physician Instructions: Consult to PT for:: Evaluation and Treat 06/12/24 04:52 Consult to Pulmonology Routine Comment: Consulting Provider: Kris Everett Reason For Exam: Critical Care Management Has Provider Been Notified: Yes Date of Notification: 06/12/24 Time of Notification: 07:19 06/13/24 18:58 Consult to Nephrology Routine Comment: Consulting Provider: Franca Velázquez Has Provider Been Notified: Yes Date of Notification: 06/14/24 Time of Notification: 07:07 Reason for Consult: Hyper/Hypo Natremia 06/14/24 15:44 Consult to Gastroenterology Routine Comment: Consulting Provider: Joselo Watson Reason For Exam: elevated LFTs Has Provider Been Notified: Yes Date of Notification: 06/14/24 Time of Notification: 16:14 06/17/24 05:12 Consult to Speech Therapy Routine Comment: Reason for ST Consult: Bedside Swallow Eval & Tx Diet per ST Recommendations: Yes Modified Barium Swallow Study, If Recommended: Yes 06/17/24 09:27 Consult to Occupational Therapy Routine Comment: Physician Instructions: Consult to OT for:: Evaluation and Treat Consult to Physical Therapy Routine Comment: Physician Instructions: Consult to PT for:: Evaluation and Treat 06/20/24 09:44 Consult to Physiatry Routine Comment: Consulting Provider: [facility] - Phys Med - Rehab Reason For Exam: rehab needs/post acute care planning Has Provider Been Notified: Yes Date of Notification: 06/20/24 Time of Notification: 09:44 Discharge Diagnosis Final Diagnosis Final Discharge Diagnosis: COVID-19 infection A-fib RVR Non-STEMI type I, severe CAD/triple-vessel, with severe ischemic cardiomyopathy,acute decompensatedHFrEF ejection fraction 35%, and cardiogenic shock Acute hypoxic respiratory failure KARIS on CKD stage IIIa Ischemic hepatitis in the setting of shock with coagulopathy Chronic problems CKD stage IIIa Diabetes type 2 Dyslipidemia Hypertension Paroxysmal A-fib on Coumadin Summary Hospital Course Hospital course: Patient is 78-year-old female, who presented to the emergency department of [facility] aftershe sustained a fall. Initial evaluation revealed A- fibRVR, COVID-19 infection and was also notablefor a troponin elevation in the thousands. She was transferred to our facility for further evaluation. A syncopal event occurred while in the hospital, she was found to be hypotensive and was administered fluid, transferred to the ICU where she received also pressor therapy. Blood cultures and broad-spectrum antibiotics were administered for presumed sepsis. However, an echocardiogram showed ejection fraction of 35%, with suggestion of apical ballooning syndrome/Takotsubo cardiomyopathy. Patient was seen by cardiology, and after elective endotracheal intubation as she could not lay flat, coronary angiogram was later performed on June 15, disclosing severe multiplevessel disease, including total occlusion of mid LAD, total occlusion of proximal RCA, 95% left circumflex stenosis. Patient was not felt to be a candidate for immediate revascularization or CABG dueto her coronary anatomy. Medical therapy was recommended. Consideration will be given later on, to possible high risk angioplasty. Atrial fibrillation with rapid ventricular response present on admission resolved. Abnormal LFTs were felt to be secondary to hepatic hypoperfusion in the setting of shock. Broad-spectrum antibioticswere de-escalated, patient wastransition to medical floor, and ultimately she was discharged to the inpatient rehabilitation in stable condition. Medical therapy for CAD and CHF will be continued as noted below. Time Spent with Patient Time spent providing/coordinating discharge services (# min): 45 Surgeries and Procedures Operation Date: 06/15/24 08:15 Actual Procedures p CL Coronary Angio - Frandy Cabrera MD Discharge Plan Discharge Plan Patient Disposition: Rehab [facility] Activity: No Activity Restriction Diet: Diabetic, Low-Sodium and Other Comment: See speech therapy recommendations in discharge packet Additional Instructions: Statin may be initiated in 1 week upon normalization of LFTs. Rehab to manage: -PT/OT/ST to eval and treat -Monitor VS per protocol -Fall precautions -Routine assessments -Routine skin care and assessments -Monitor for increased signs of infection -Patient tested positive for COVID-19 on 06/11/24-- follow precautions -Monitor PT/INR daily-- pt on Coumadin -See speech therapy recommendations in discharge packet -Encourage cough and deep breathing -Monitor intake and output -Daily weight -Maintain and perform routine care to huber catheter-- placed on 06/18/24 for urinary retention *may perform voiding trials in rehab -Change dressing every 3 days: *Mepilex border foam to Coccyx for protection. -Monitor FSBS ACHS -Care to be managed by rehab providers. 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 1. You were given conscious sedation. Do not operate a vehicle, power tools, make important decisions, or drink alcohol for 24 hours. You might be drowsy orlight headed. Return to the Emergency Room if you have trouble breathing, walking or nausea and vomiting. 2. FOR BLEEDING: Apply continuous pressure to the site and call 911. 3. Operative Site Care: Keep the dressing clean and dry. You may change the dressing only if soiledor wet. You may remove the dressing the following morning. You may wash over the puncture site in the shower. If the puncture site is at the wrist no soaking for 3 days. Some bruising or slight swelling may be present. -Signs of infection are redness, warmth, swelling, getting more sore, colored drainage, fever or chills. -Should the arm or leg become cold, numb, blue or white, call the dispatch supervisor immediately. 4. ACTIVITY: You are advised to go directly home from the hospital. Restrict your activities for the rest of the day. Resume light or normal activities tomorrow. Do not engage in any activity that will stress the puncture site. Avoid heavy lifting (over 15 lbs.), straining or bending at the catheter site for 48 hours after discharge. If the puncture site is at the wrist do not manipulate wrist for 24 hours and no lifting more than 3 lbs for 3 days. 5. DIET:You may eat your regular diet when you desire. 6. MEDICATIONS: Resume your daily prescription schedule. Prescriptions may be sent with you if needed. Use as directed. When taking pain medications, you may experience dizziness or drowsiness. Do not drink alcohol or drive when taking pain medications. 7. If you should experience episodes of angina e.g. chest discomfort, heaviness, tightness, pressure, burning, with or without radiation to the neck, jaws, arms, or back- Use 1 Nitrostat under your tongue every 5-10 minutes, and up to 3 tablets. If no relief- Call 911 and go to the nearest Emergency Room. -Notify the office for recurrent angina, chest pain or other concerns. You may NOT drive yourself home! Follow the medication instructions provided on your discharge. If the dosages and instructions on this sheet differ from the dosage and instructions on the bottle, follow the instructions on the bottle. [facility] is not responsible for incorrect prescription information provided by thepatient during their visit. Do not stop your medications without consulting your health care provider. Please take the list with you to your next doctor's appointment. Instructions: [facility] COVID-19 Discharge Instructions Prescriptions: New atorvastatin 80 mg Tablet 80 mg PO QPM Qty: 0 0RF Rx Instructions: start 06/27/24, monitor LFT in 2 weeks thereafter clopidogrel 75 mg Tablet 75 mg PO DAILY Qty: 0 0RF insulin aspart U-100 100 unit/mL (3 mL) Insulin Pen See Protocol subcut ACHS Qty: 0 0RF Protocol: Corrective Scale #2 (TDI 26-50 UNITS) Condition: Corrective Scale #2 (TDI 26-50 UNITS) Condition: Dose/Route: Instruction: Condition: Fingerstick Blood Glucose Dose/Route: Insulin Units Condition: 150-199 mg/dl Dose/Route: 2 unit Condition: 200-249 mg/dl Dose/Route: 3 unit Condition: 250-299 mg/dl Dose/Route: 5 unit Condition: 300-349 mg/dl Dose/Route: 7 unit Condition: 350-399 mg/dl Dose/Route: 8 unit Condition: greater than or = 400 mg/dl Dose/Route: 9 unit Instruction: CallProvider Protocol Text: *If the corrective scale dose has been administered within the past 4 hours, do not use corrective scale again unless approved by prescriber* sacubitril-valsartan [Entresto] 24-26 mg Tablet 1 tab PO BID Qty: 0 0RF spironolactone 25 mg Tablet 25 mg PO DAILY Qty: 0 0RF Jardiance 25 mg tablet 25 mg PO QAM Qty: 360 0RF metoprolol succinate 50 mg Tablet Extended Release 24 Hr 50 mg PO DAILY Qty: 0 0RF isosorbide mononitrate 60 mg Tablet Extended Release 24 Hr 60 mg PO DAILY.6A Qty: 0 0RF Continued (DME) OneTouch Verio test strips Strip See Rx Instructions .ROUTE .COMPLEX Qty: 100 3RF Dose Instruction: USE TO TEST SUGAR ONCE A DAY Rx Instructions: USE TO TEST SUGAR ONCE A DAY dorzolamide-timolol (PF) 2-0.5 % dropperette 1 drp Eye-Both DAILY metformin 500 mg tablet extended release 24 hr 500 mg PO DAILY Qty: 30 2RF cholecalciferol (vitamin D3) 25 mcg (1,000 unit) capsule 25 mcg PO DAILY pravastatin 40 mg tablet 40 mg PO QHS warfarin 2.5 mg tablet 2.5 mg PO DAILY Patient Comments: Pt takes as directed. Current dose: Thursday: 1 tablet Thursday: 1/2 Tablet Thursday: 1 Tablet Thursday: 1/2 Tablet : 1 Tablet Thursday: 1 Tablet : 1 Tablet potassium chloride [Klor-Con M20] 20 mEq tablet,ER particles/crystals 20 meq PO DAILY (DME) lancets [OneTouch Delica Plus Lancet] 30 gauge misc See Rx Instructions .ROUTE .MEDSUPPLY Qty: 100 Rx Instructions: As directed Discontinued chlorthalidone 25 mg tablet 25 mg PO DAILY diltiazem HCl 300 mg capsule,extended release 24hr 300 mg PO DAILY lisinopril 10 mg tablet 10 mg PO DAILY Follow Up: Frandy Cabrera MD [Active Staff] - (you will need to be seen 7-14 days after discharge from Rehab Unit. Prior to your discharge have the Rehab unit call for a follow up . ) Felipe Johnson MD [Primary Care Provider] - (Please arrange a follow-up appointment once discharged from rehab. ) Elvis Philip MD [Active Staff] - (Please arrange a follow-up appointment once discharged from rehab. ) Exam Physical Exam Vital Signs: Temp Pulse Resp BP Pulse Ox O2 Del Method O2 Flow Rate 98.0 F 83 18 126/62 97 Room Air 2 06/20/24 11:28 06/20/24 13:59 06/20/24 11:28 06/20/24 13:59 06/20/24 11:28 06/20/24 11:28 06/19/24 09:00 FiO2 30 06/16/24 14:00 Diagnostic Studies Completed and Pending Studies Pending studies at discharge: 06/14/24 16:23 ECG 12 lead ECG Routine 06/21/24 05:00 Prothrombin Time INR IN AM 06/22/24 05:00 Prothrombin Time INR IN AM 06/23/24 05:00 Prothrombin Time INR IN AM Labs on day of discharge: 06/20/24 11:38: POC Glucose 261 06/20/24 08:54: POC Glucose 90 06/20/24 04:05: Corrected WBC 13.4 H, Uncorrected WBC Count 13.4 H, RBC 3.91, Hgb 12.0, Hct 36.0, MCV 92.1, MCH 30.7, MCHC 33.4, RDW 14.0, Plt Count 293, MPV 8.5, Neut % (Auto) 77.7, Lymph % (Auto) 9.5, [place] % (Auto) 11.6, Eos % (Auto) 1.0, Baso % (Auto) 0.2, Nucleat RBC Rel Count 0.7 H, Neut # (Auto) 10.4 H, Lymph# (Auto) 1.3, [place] # (Auto) 1.6 H, Eos # (Auto) 0.1, Baso # (Auto) 0.0, PT 34.4 H, INR 3.1, PHA Creatinine Clear 41.16, Sodium 135 L, Potassium 3.6, Chloride 95L, Carbon Dioxide 32.8 H, Anion Gap 10.8, BUN 42 H, Creatinine 1.20, Est GFR (CKD-EPI) 46.333, Glucose 82, Calcium 9.6, Total Bilirubin 0.8, AST 61 H, ALT 382 H, Alkaline Phosphatase 189 H, Total Protein 6.3 L, Albumin 3.5, Globulin 2.8, Albumin/Globulin Ratio 1.3 06/19/24 20:15: POC Glucose 154 06/19/24 17:11: POC Glucose 186 Documented By: Sebastien Cardenas MD 06/20/24 1449 Signed By: 06/20/24 1500 [facility]02-10-2025 Progress note Author Imani Diallo [facility] Note Date/Time June 20, 2024 12:09pm [facility] [address] [place] [address] Nephrology Progress Note Signed Patient: Lyric Juarez MR#: [id number] : 1945 Acct:[id number] Age/Sex: 78 / F Adm Date: 5 Loc: 4N Room: 4N4027-1 Type: ADM IN Attending Dr: Sebastien Cardenas MD Copies to: ~ Date of Service: 06/20/2024 Subjective Subjective Narrative: This is a 78-year-old female with medical history of atrial fibrillation, HTN, DM, CKD, HLD was presented to the [facility] after a fall. On evaluationin emergency room she was found to have a fever with tachycardia. Her EKG showed A- fib with RVR and was given normal saline fluid boluses to improve her heart rate. She was transferred to the [facility] for sepsis management. Patient after arrival at [facility] was found to have a hypotension with a fall. She was given a normal saline bolus but due to the persistent hypotension she was moved to the intensive care unit and was started on Levophed. She was also given broad-spectrum antibioticsfor sepsis. Patient was also found to have a non-ST elevated AZ and cardiology was consulted. She had echocardiogram which showed EF 35 to 40% moderate pulmonary hypertension and dilated IVC. Cardiology also recommended a cardiac catheterization. Patient was also found to have a hyponatremia with serum sodium 123 to 124 mmol/L. She was given Bumex to improve her respiratory status. Nephrology is consulted for her hyponatremia management and CARMEN and risk stratification and prophylaxis. Patient underwent cardiac catheterization on 06/15/2024 and was found to have a three-vessel disease. Patient is not a suitable candidate for PCI or CABG. Cardiology recommended medical management. She was intubated in anticipation of the cardiac cath and was successfully extubated on 06/16/2024. Interim history Patient was seen and examined at bedside. Patient is sitting up in the bed. She is eating breakfast. She has no complaint. She denies any chest pain palpation cough nausea vomit diarrhea and shortness of breath. Lab this morning revealed serum sodium level 135 mmol/L, serum creatinine 1.2 mg/dL. Patient made about 1.3 L urine output. Vital signs stable. Blood pressure 113/74 Exam Physical Exam Vital Signs: Temp Pulse Resp BP Pulse Ox O2 Del Method O2 Flow Rate 98.0 F 82 18 113/74 97 Room Air 2 06/20/24 11:28 06/20/24 11:28 06/20/24 11:28 06/20/24 11:28 06/20/24 11:28 06/20/24 11:28 06/19/24 09:00 FiO2 30 06/16/24 14:00 Narrative: General: No acute distress Head :atraumatic normocephalic Eyes: PERRLA. Neck: no JVD no bruit. Heart: S1-S2. RRR Respiratory: Clear to auscultation. No wheezing. No crackles Abdomen: Soft, positive bowel sounds,no tenderness. Neurology: Awake alert oriented x3. No focal deficits Extremity. No cyanosis. Trace edema of lower extremities Skin: No skin rash Objective Intake and Output I&O: Intake & Output 06/17/24 06/18/24 06/19/24 06/20/24 23:59 23:59 23:59 23:59 Intake Total 1480 / 1480 795 / 795 950 / 950 150 / 150 Output Total 525 / 525 1525 / 1525 1550 / 1550 400 / 400 Balance 955 / 955 -730 / -730 -600 / -600 -250 / -250 Weight 81.5 kg 81.5 kg 82.3 kg 83.2 kg Meds and Allergies Meds: Active Medications Acetaminophen (Acetaminophen 325 Mg Tablet) 650 mg PO Q6HR PRN PRN Reason: Pain Scale 1 - 3 or fever Stop: 06/12/25 00:33 Last Admin: 06/18/24 20:40 Dose: 650 mg Atorvastatin Calcium (Atorvastatin 80 Mg Tablet) 80 mg PO QPM ERNESTINA Stop: 06/16/25 20:59 Last Admin: 06/16/24 22:08 Dose: Not Given Benzonatate (Benzonatate 100 Mg Capsule) 200 mg PO TID PRN PRN Reason: Cough Stop: 06/12/25 18:16 Last Admin: 06/13/24 17:54 Dose: 200 mg Calcium Carbonate (Calcium Carbonate 500 Mg Tab.Chew) 500 mg PO Q4H PRN PRN Reason: Dyspepsia Stop: 06/19/25 17:17 Last Admin: 06/19/24 18:32 Dose: 500 mg Clopidogrel Bisulfate (Clopidogrel Bisulfate 75 Mg Tablet) 75 mg PO DAILY [facility] Stop: 06/14/25 08:59 Last Admin: 06/20/24 08:37 Dose: 75 mg Dextrose (Dextrose 50% In Water 25 Gm/50 Ml Syringe) 0 gm IV-PUSH PRN PRN PRN Reason: Hypoglycemia Stop: 06/12/25 00:39 Diphenhydramine HCl (Diphenhydramine 25 Mg Capsule) 25 mg PO HS PRN PRN Reason: Sleep Stop: 06/19/25 22:05 Last Admin: 06/19/24 22:43 Dose: 25 mg Dorzolamide HCl (Dorzolamide 2% Op Soln 200 Drops/10 Ml Bottle) 1 drops EYE-BOTH DAILY [facility] Stop: 06/12/25 08:59 Last Admin: 06/20/24 08:36 Dose: 1 drops Glucose (Dextrose 40% Gel 15 Gm Tube) 0 gm PO PRN PRN PRN Reason: Hypoglycemia Stop: 06/12/25 00:39 Magnesium Sulfate (Magnesium Sulf 2gm-*Swfi*) 2 gm in 50 mls @ 25 mls/hr IV DAILY PRN PRN Reason: Magnesium Level < 1.5 Stop: 06/12/25 00:33 Last Infusion: 06/13/24 19:00 Dose: Infused Insulin Aspart (Insulin Aspart 300 Units/3 Ml) 0 units SUBCUT [facility]; Protocol Stop: 06/17/25 21:59 Last Admin: 06/20/24 09:21 Dose: Not Given Insulin Glargine (Insulin Glargine 300 Units/3 Ml Insuln.Pen) 15 units SUBCUT DAILY [facility] Stop: 06/19/25 08:59 Last Admin: 06/20/24 08:37 Dose: 15 units Isosorbide Mononitrate (Isosorbide Mononitrate 24hr Er 60 Mg Tab.Er.24h) 60 mg PO DAILY.6A [facility] Stop: 06/18/25 05:59 Last Admin: 06/20/24 06:09 Dose: 60 mg Melatonin (Melatonin 5 Mg Tablet) 5 mg PO QHS [facility] Stop: 06/13/25 21:59 Last Admin: 06/19/24 22:44 Dose: Not Given Metoprolol Succinate (Metoprolol Succinate 50 Mg Tab.Er.24h) 50 mg PO DAILY [facility] Stop: 06/20/25 13:59 Nitroglycerin (Nitroglycerin 0.4 Mg Tab.Subl) 0.4 mg SUBLINGUAL Q5M PRN PRN Reason: Chest Pain Stop: 06/15/25 13:20 Ondansetron HCl (Ondansetron 4 Mg/2 Ml Vial) 4 mg IV-PUSH Q6H PRN PRN Reason: Nausea And Vomiting Stop: 06/15/25 13:20 Potassium Chloride (Potassium Chloride Er 20 Meq Tab.Er.Prt) 20 meq PO DAILY PRN PRN Reason: Hypokalemia Stop: 06/12/25 00:33 Last Admin: 06/13/24 06:43 Dose: 20 meq Potassium Chloride (Potassium Chloride Er 20 Meq Tab.Er.Prt) 40 meq PO DAILY PRN PRN Reason: Hypokalemia Stop: 06/12/25 00:33 Sacubitril/Valsartan (Sacubitril/Valsartan 24-26mg 1 Tab Tablet) 1 tab PO BID [facility] Stop: 06/20/25 20:59 Sodium Chloride (Sodium Chloride 0.9 % 10 Ml Syringe) 0 ml IV-PUSH PRN PRN PRN Reason: Flush Stop: 06/14/25 15:14 Spironolactone (Spironolactone 25 Mg Tablet) 25 mg PO DAILY [facility] Stop: 06/16/25 08:59 Last Admin: 06/20/24 08:37 Dose: 25 mg Timolol Maleate (Timolol Mal 0.5% Op Soln 100 Drops/5 Ml Bottle) 1 drops EYE- BOTH DAILY ERNESTINA Stop: 06/12/25 08:59 Last Admin: 06/20/24 08:36 Dose: 1 drops Warfarin Sodium (Warfarin - Pharmacy Dosing) 1 each MISCELLANE PRN PRN PRN Reason: zz.Pharmacy Note Stop: 06/16/25 18:33 Warfarin Sodium (Warfarin 1 Mg Tablet) 0.5 mg PO ONCE ONE Stop: 06/20/24 17:01 Allergies flecainide Allergy (Unknown, Verified 05/17/24 08:07) Hives Results - Nephrology Labs 06/20/24 04:05 06/20/24 04:05 Labs: 06/20/24 04:05 BUN 42 H Creatinine 1.20 Albumin 3.5 Radiology Impressions Impressions - last 24 hours: Any impression(s) listed above is documentation that was entered by the reading physician into a diagnostic report(s) for Lyric Juarez. I have reviewed the report(s) and am incorporating any findings in the treatment plan of this patient where applicable. A&P - Nephrology Assessment/Plan (1) Acute kidney injury superimposed on CKD: Assessment/Problem Details: She likely has an KARIS due to the CARMEN. Her renal function is improving and she is making adequate urine output. (2) Hyponatremia: Assessment/Problem Details: She had hyponatremia due to the hypervolemia. Her serum sodium improved with diuresis. (3) CKD stage 3a, GFR 45-59 ml/min: Assessment/Problem Details: She has a CKD due to the DM and HTN with baseline serum creatinine around 1.1 mg/dL. Her renal function initially was worse due to the hypotension but improved with optimization of her hemodynamics. (4) Hypokalemia: Assessment/Problem Details: She had hypokalemia due to the diuretic induced renal potassium wasting. Her potassium is back to normal with oral and IV replacement. (5) Non-ST elevation (NSTEMI) myocardial infarction: Assessment/Problem Details: Patient also diagnosed to have a AZ. She was found to have a three-vessel disease. Medical management was recommended by cardiology. (6) Sepsis: Assessment/Problem Details: Patient presented with a sepsis and initially required vasopressors. She has finished a course of antibiotics. (7) COVID-19: Assessment/Problem Details: Patient has COVID-19 infection. She is currently on steroids. Pulmonary has been following the patient. (8) Atrial fibrillation: Assessment/Problem Details: Patient has atrial fibrillation. Currently on metoprolol. Plan * Kidney function continues to improve. Serum creatinine down to 1.2 mg deciliter.Patient is making adequate amount of urine output . * Will continue to monitor without diuretics or IV fluid. * Continue current dose of the metoprolol, isosorbide mononitrate, spironolactone and Entresto. Blood pressure has been stable * Continue management of CAD and A-fib as per cardiology service. * Monitor input output Daily and daily weight. * Check CBC renal function panel a.m. Documented By: Imani Diallo MD 06/20/24 1204 Signed By: <Electronically signed by Imani Diallo MD> 06/20/24 1209 [facility] Work Phone: 1(134) 422-341902-10-2025 [place] [address] Progress Note Signed Patient: Lyric Juarez MR#: [id number] : 1945 Acct:[id number] Age/Sex: 78 / F Adm Date: 5 Loc: Room: [address] [place] [address] Type: ADM IN Attending Dr: Sebastien Cardenas MD Copies to: ~ Date of Service: 06/20/2024 Progress Narrative Note PROGRESS NOTE Progress Note: Patient is hemodynamically stable and on room air. She has been transferred outof the ICU. I have no further recommendations. Pulmonary/critical care medicine will sign off. Please call if we can be of further assistance. Documented By: Reilly Chanel MD 5 [id number] Signed By: 06/20/24 1400 [facility]02-10-2025 Progress note Author Frandy Cabrera [facility] Note Date/Time June 20, 2024 10:55am [facility] [address] [place] [id number] Cardiology Progress Note Signed Patient: Lyric Juarez MR#: [id number] : 1945 Acct:[id number] Age/Sex: 78 / F Adm Date: 5 Loc: 4N Room: 6N3689-2 Type: ADM IN Attending Dr: Sebastien Cardenas MD Copies to: ~ Date of Service: 06/20/2024 Subjective Principal diagnosis: Congestive heart failure/non-ST elevation myocardial infarction Interval history: Patient shows remarkable improvement, denies any chest pain or dyspnea, hemodynamics are stable, vital signs are normal, blood pressure slightly on the higher side, creatinine down to 1.2 mg/dL and sodium is up to 135 mmol/L. Transaminases coming down towards normal. Due to these improvements we will switch from hydralazine to Entresto starting at 24/26 mg twice daily and monitorelectrolytes and renal function closely, continue isosorbide mononitrate along with beta-blockers and spironolactone. There is potential for revascularizationof the large left circumflex since it is feasible technically speaking. That will be something to consider down the road. Will continue aggressive modifications of risk factor for CAD. Atrial fibrillation is chronic and rate control and anticoagulation is the long-term plan. INR is therapeutic on Coumadin. Exam Physical Exam Vital Signs: Temp Pulse Resp BP Pulse Ox O2 Del Method O2 Flow Rate 97.9 F 81 18 146/82 H 95 Room Air 2 06/20/24 08:02 06/20/24 08:02 06/20/24 08:02 06/20/24 08:02 06/20/24 08:02 06/20/24 08:25 06/19/24 09:00 FiO2 30 06/16/24 14:00 Const General: cooperative, comfortable and no acute distress Nutritional Appearance: overweight Orientation: alert, awake and oriented x3 HEENT Head: normal to inspection, normocephalic and atraumatic Ears: hearing grossly normal bilaterally Nose: external nose normal Face and sinus: normal facial exam Eyes Conjunctivae: conjunctivae normal Pupils: PERRL Neck Neck: trachea midline and supple Neck mass: No Thyroid: thyroid normal Carotids: normal carotid upstroke Resp Effort & Inspection: normal respiratory effort Auscultation: clear to auscultation bilaterally Cardio Jugular venous pressure: no JVD Palpation: normal PMI Rate: regular rate Rhythm: abnormal rhythm irregularly irregular Heart Sounds: S1 normal and S2 normal GI Palpation: soft and no hepatosplenomegaly Auscultation: normal bowel sounds Extrem General: no clubbing, cyanosis or edema Objective Labs 06/20/24 04:05 06/20/24 04:05 Labs: Laboratory Results - last 24 hr 06/19/24 06/19/24 06/19/24 11:47 17:11 20:15 Corrected WBC Uncorrected WBC Count RBC Hgb Hct MCV MCH MCHC RDW Plt Count MPV Neut % (Auto) Lymph % (Auto) [place] % (Auto) Eos % (Auto) Baso % (Auto) Nucleat RBC Rel Count Neut # (Auto) Lymph # (Auto) [place] # (Auto) Eos # (Auto) Baso # (Auto) PT INR PHA Creatinine Clear Sodium Potassium Chloride Carbon Dioxide Anion Gap BUN Creatinine Est GFR (CKD-EPI) Glucose POC Glucose 250 186 154 Calcium Total Bilirubin AST ALT Alkaline Phosphatase Total Protein Albumin Globulin Albumin/Globulin Ratio 06/20/24 06/20/24 04:05 08:54 Corrected WBC 13.4 H Uncorrected WBC Count 13.4 H RBC 3.91 Hgb 12.0 Hct 36.0 MCV 92.1 MCH 30.7 MCHC 33.4 RDW 14.0 Plt Count 293 MPV 8.5 Neut % (Auto) 77.7 Lymph % (Auto) 9.5 [place] % (Auto) 11.6 Eos % (Auto) 1.0 Baso % (Auto) 0.2 Nucleat RBC Rel Count 0.7 H Neut # (Auto) 10.4 H Lymph # (Auto) 1.3 [place] # (Auto) 1.6 H Eos # (Auto) 0.1 Baso # (Auto) 0.0 PT 34.4 H INR 3.1 PHA Creatinine Clear 41.16 Sodium 135 L Potassium 3.6 Chloride 95 L Carbon Dioxide 32.8 H Anion Gap 10.8 BUN 42 H Creatinine 1.20 Est GFR (CKD-EPI) 46.333 Glucose 82 POC Glucose 90 Calcium 9.6 Total Bilirubin 0.8 AST 61 H ALT 382 H Alkaline Phosphatase 189 H Total Protein 6.3 L Albumin 3.5 Globulin 2.8 Albumin/Globulin Ratio 1.3 A&P - Cardiology (1) Permanent atrial fibrillation: Assessment/Problem Details: heart rate is under control on beta-jaguar Plan: Continue beta-blockers and Coumadin Code(s): I48.21 - Permanent atrial fibrillation (2) Left ventricular systolic dysfunction: Assessment/Problem Details: Ejection fraction is down to 25?30% due to severe ischemic cardiomyopathy Plan: Since renal function has returned to baseline, will switch from hydralazine to Entresto and continue beta-blockers but switch to long-acting metoprolol, continue spironolactone, will consider Jardiance heart failure therapy dosing Code(s): I51.89 - Other ill-defined heart diseases (3) Non-ST elevation (NSTEMI) myocardial infarction: Assessment/Problem Details: Due to severe coronary artery disease Plan: Antiplatelet therapy, high intensity statin, beta-blockers Code(s): I21.4 - Non-ST elevation (NSTEMI) myocardial infarction (4) 3-vessel coronary artery disease: Assessment/Problem Details: Cardiac catheterization revealed 100% occlusion of the proximal right coronary artery, 100% occlusion of the mid LAD and 95% occlusion of the mid left circumflex Plan: Aggressive modification of risk factors, antiplatelet therapy, nitrates and beta-blockers, down the road we will consider PCI of the left circumflex Code(s): I25.10 - Atherosclerotic heart disease of [place] coronary artery without angina pectoris (5) Dyslipidemia: Plan: Continue high intensity statin Code(s): E78.5 - Hyperlipidemia, unspecified (6) Elevated liver transaminase level: Assessment/Problem Details: Moving towards normal Code(s): R74.01 - Elevation of levels of liver transaminase levels (7) Essential hypertension: Assessment/Problem Details: Currently under reasonable control Plan: Continue titrating heart failure therapy Code(s): I10 - Essential (primary) hypertension Plan 1. Continue supportive measures. Patient hemodynamically stable with slow and gradual improvement 2. Continue heart rate control and long-term anticoagulation strategy. INR is 3.5. She is off Lovenox 3. Continue with conservative management cardiac baxter 4. Patient was not felt to be a good candidate for PCI and felt to be high riskfor CABG unless clinical status improves 5. Consider adding Jardiance if renal function continues to remain stable Documented By: Frandy Cabrera MD, [facility] 5 1047 Signed By: <Electronically signed by MD BEAU Cabrera> 06/20/24 0048 [facility] Work Phone: 1(158) 773-197002-10-2025 [place] [address] Nephrology Progress Note Signed Patient: Lyric Juarez MR#: [id number] : 1945 Acct:[id number] Age/Sex: 78 / F Adm Date: 5 Loc: 4N Room: 5Q0944-7 Type: ADM IN Attending Dr: Sebastien Cardenas MD Copies to: ~ Date of Service: 06/20/2024 Subjective Subjective Narrative: This is a 78-year-old female with medical history of atrial fibrillation, HTN, DM, CKD, HLD was presented to the [facility] after a fall. On evaluationin emergency room she was found to have afever with tachycardia. Her EKG showed A-fib with RVR and was given normal saline fluid boluses to improve her heart rate. She was transferred to the [facility] for sepsis management. Patient after arrival at [facility] was found to have a hypotension with a fall. She was given a normal saline bolus but due to the persistent hypotension she was moved to the intensive care unit and was started on Levophed. She was also given broad-spectrum antibioticsfor sepsis. Patient was also found to have a non-ST elevated AZ and cardiology was consulted. She had echocardiogram which showed EF 35 to 40% moderate pulmonary hypertension and dilated IVC. Cardiology also recommended a cardiac catheterization. Patient was also found to have a hyponatremia with serum sodium 123 to 124 mmol/L. She was given Bumex to improve her respiratory status. Nephrology is consulted for her hyponatremia management and CARMEN and risk stratification and prophylaxis. Patient underwent cardiac catheterization on 06/15/2024 and was found to have a three-vessel disease. Patient is not a suitable candidate for PCI or CABG. Cardiology recommended medical management. She was intubated in anticipation of the cardiac cath and was successfully extubated on 06/16/2024. Interim history Patient was seen and examined at bedside. Patient is sitting up in the bed. She is eating breakfast. She has no complaint. She denies any chest pain palpation cough nausea vomit diarrhea and shortness of breath. Lab this morning revealed serum sodium level 135 mmol/L, serum creatinine 1.2 mg/dL. Patient made about 1.3 L urine output. Vital signs stable. Blood pressure 113/74 Exam Physical Exam Vital Signs: Temp Pulse Resp BP Pulse Ox O2 Del Method O2 Flow Rate 98.0 F 82 18 113/74 97 Room Air 2 06/20/24 11:28 06/20/24 11:28 06/20/24 11:28 06/20/24 11:28 06/20/24 11:28 06/20/24 11:28 06/19/24 09:00 FiO2 30 06/16/24 14:00 Narrative: General: No acute distress Head :atraumatic normocephalic Eyes: PERRLA. Neck: no JVD no bruit. Heart: S1-S2. RRR Respiratory: Clear to auscultation. No wheezing. No crackles Abdomen: Soft, positive bowel sounds,no tenderness. Neurology: Awake alert oriented x3. No focal deficits Extremity. No cyanosis. Trace edema of lower extremities Skin: No skin rash Objective Intake and Output I&O: Intake & Output 06/17/24 06/18/24 06/19/24 06/20/24 23:59 23:59 23:59 23:59 Intake Total 1480 / 1480 795 / 795 950 / 950 150 / 150 Output Total 525 / 525 1525 / 1525 1550 / 1550 400 / 400 Balance 955 / 955 -730 / -730 -600 / -600 -250 / -250 Weight 81.5 kg 81.5 kg 82.3 kg 83.2 kg Meds and Allergies Meds: Active Medications Acetaminophen (Acetaminophen 325 Mg Tablet) 650 mg PO Q6HR PRN PRN Reason: Pain Scale 1 - 3 or fever Stop: 06/12/25 00:33 Last Admin: 06/18/24 20:40 Dose: 650 mg Atorvastatin Calcium (Atorvastatin 80 Mg Tablet) 80 mg PO QPM ERNESTINA Stop: 06/16/25 20:59 Last Admin: 06/16/24 22:08 Dose: Not Given Benzonatate (Benzonatate 100 Mg Capsule) 200 mg PO TID PRN PRN Reason: Cough Stop: 06/12/25 18:16 Last Admin: 06/13/24 17:54 Dose: 200 mg Calcium Carbonate (Calcium Carbonate 500 Mg Tab.Chew) 500 mg PO Q4H PRN PRN Reason: Dyspepsia Stop: 06/19/25 17:17 Last Admin: 06/19/24 18:32 Dose: 500 mg Clopidogrel Bisulfate (Clopidogrel Bisulfate 75 Mg Tablet) 75 mg PO DAILY [facility] Stop: 06/14/25 08:59 Last Admin: 06/20/24 08:37 Dose: 75 mg Dextrose (Dextrose 50% In Water 25 Gm/50 Ml Syringe) 0 gm IV-PUSH PRN PRN PRN Reason: Hypoglycemia Stop: 06/12/25 00:39 Diphenhydramine HCl (Diphenhydramine 25 Mg Capsule) 25 mg PO HS PRN PRN Reason: Sleep Stop: 06/19/25 22:05 Last Admin: 06/19/24 22:43 Dose: 25 mg Dorzolamide HCl (Dorzolamide 2% Op Soln 200 Drops/10 Ml Bottle) 1 drops EYE-BOTH DAILY [facility] Stop: 06/12/25 08:59 Last Admin: 06/20/24 08:36 Dose: 1 drops Glucose (Dextrose 40% Gel 15 Gm Tube) 0 gm PO PRN PRN PRN Reason: Hypoglycemia Stop: 06/12/25 00:39 Magnesium Sulfate (Magnesium Sulf 2gm-*Swfi*) 2 gm in 50 mls @ 25 mls/hr IV DAILY PRN PRN Reason: Magnesium Level < 1.5 Stop: 06/12/25 00:33 Last Infusion: 06/13/24 19:00 Dose: Infused Insulin Aspart (Insulin Aspart 300 Units/3 Ml) 0 units SUBCUT [facility]; Protocol Stop: 06/17/25 21:59 Last Admin: 06/20/24 09:21 Dose: Not Given Insulin Glargine (Insulin Glargine 300 Units/3 Ml Insuln.Pen) 15 units SUBCUT DAILY [facility] Stop: 06/19/25 08:59 Last Admin: 06/20/24 08:37 Dose: 15 units Isosorbide Mononitrate (Isosorbide Mononitrate 24hr Er 60 Mg Tab.Er.24h) 60 mg PO DAILY.6A [facility] Stop: 06/18/25 05:59 Last Admin: 06/20/24 06:09 Dose: 60 mg Melatonin (Melatonin 5 Mg Tablet) 5 mg PO QHS [facility] Stop: 06/13/25 21:59 Last Admin: 06/19/24 22:44 Dose: Not Given Metoprolol Succinate (Metoprolol Succinate 50 Mg Tab.Er.24h) 50 mg PO DAILY [facility] Stop: 06/20/25 13:59 Nitroglycerin (Nitroglycerin 0.4 Mg Tab.Subl) 0.4 mg SUBLINGUAL Q5M PRN PRN Reason: Chest Pain Stop: 06/15/25 13:20 Ondansetron HCl (Ondansetron 4 Mg/2 Ml Vial) 4 mg IV-PUSH Q6H PRN PRN Reason: Nausea And Vomiting Stop: 06/15/25 13:20 Potassium Chloride (Potassium Chloride Er 20 Meq Tab.Er.Prt) 20 meq PO DAILY PRN PRN Reason: Hypokalemia Stop: 06/12/25 00:33 Last Admin: 06/13/24 06:43 Dose: 20 meq Potassium Chloride (Potassium Chloride Er 20 Meq Tab.Er.Prt) 40 meq PO DAILY PRN PRN Reason: Hypokalemia Stop: 06/12/25 00:33 Sacubitril/Valsartan (Sacubitril/Valsartan 24-26mg 1 Tab Tablet) 1 tab PO BID ERNESTINA Stop: 06/20/25 20:59 Sodium Chloride (Sodium Chloride 0.9 % 10 Ml Syringe) 0 ml IV-PUSH PRN PRN PRN Reason: Flush Stop: 06/14/25 15:14 Spironolactone (Spironolactone 25 Mg Tablet) 25 mg PO DAILY ERNESTINA Stop: 06/16/25 08:59 Last Admin: 06/20/24 08:37 Dose: 25 mg Timolol Maleate (Timolol Mal 0.5% Op Soln 100 Drops/5 Ml Bottle) 1 drops EYE- BOTH DAILY ERNESTINA Stop: 06/12/25 08:59 Last Admin: 06/20/24 08:36 Dose: 1 drops Warfarin Sodium (Warfarin - Pharmacy Dosing) 1 each MISCELLANE PRN PRN PRN Reason: zz.Pharmacy Note Stop: 06/16/25 18:33 Warfarin Sodium (Warfarin 1 Mg Tablet) 0.5 mg PO ONCE ONE Stop: 06/20/24 17:01 Allergies flecainide Allergy (Unknown, Verified 05/17/24 08:07) Hives Results - Nephrology Labs 06/20/24 04:05 06/20/24 04:05 Labs: 06/20/24 04:05 BUN 42 H Creatinine 1.20 Albumin 3.5 Radiology Impressions Impressions - last 24 hours: Any impression(s) listed above is documentation that was entered by the reading physician into a diagnostic report(s) for Lyric Juarez. I have reviewed the report(s) and am incorporating any findings in the treatment plan of this patient where applicable. A&P - Nephrology Assessment/Plan (1) Acute kidney injury superimposed on CKD: Assessment/Problem Details: She likely has an KARIS due to the CARMEN. Her renal function is improving and she is making adequate urine output. (2) Hyponatremia: Assessment/Problem Details: She had hyponatremia due to the hypervolemia. Her serum sodium improved with diuresis. (3) CKD stage 3a, GFR 45-59 ml/min: Assessment/Problem Details: She has a CKD due to the DM and HTN with baseline serum creatinine around 1.1 mg/dL. Her renal function initially was worse due to the hypotension but improved with optimization of her hemodynamics. (4) Hypokalemia: Assessment/Problem Details: She had hypokalemia due to the diuretic induced renal potassium wasting. Her potassium is back to normal with oral and IV replacement. (5) Non-ST elevation (NSTEMI) myocardial infarction: Assessment/Problem Details: Patient also diagnosed to have a [place]. She was found to have a three-vessel disease. Medical management was recommended by cardiology. (6) Sepsis: Assessment/Problem Details: Patient presented with a sepsis and initially required vasopressors. She has finished a course of antibiotics. (7) COVID-19: Assessment/Problem Details: Patient has COVID-19 infection. She is currently on steroids. Pulmonary has been following the patient. (8) Atrial fibrillation: Assessment/Problem Details: Patient has atrial fibrillation. Currently on metoprolol. Plan * Kidney function continues to improve. Serum creatinine down to 1.2 mg deciliter.Patient is makingadequate amount of urine output . * Will continue to monitor without diuretics or IV fluid. * Continue current dose of the metoprolol, isosorbide mononitrate, spironolactone and Entresto. Blood pressure has been stable * Continue management of CAD and A-fib as per cardiology service. * Monitor input output Daily and daily weight. * Check CBC renal function panel a.m. Documented By: Imani Daillo MD 06/20/24 1204 Signed By: 06/20/24 1209 [facility]02-10-2025 [place] [id number] Cardiology Progress Note Signed Patient: Lyric Juarez MR#: [id number] : 1945 Acct:[id number] Age/Sex: 78 / F Adm Date: Loc: 4N Room: [address] [place] [address] Type: ADM IN Attending Dr: Sebastien Cardenas MD Copies to: ~ Date of Service: 06/20/2024 Subjective Principal diagnosis: Congestive heart failure/non-ST elevation myocardial infarction Interval history: Patient shows remarkable improvement, denies any chest pain or dyspnea, hemodynamics are stable, vital signs are normal, blood pressure slightly on the higher side, creatinine down to 1.2 mg/dL and sodium is up to 135 mmol/L. Transaminases coming down towards normal. Due to these improvements we will switch from hydralazine to Entresto starting at 24/26 mg twice daily and monitorelectrolytes and renal function closely, continue isosorbide mononitrate along with beta-blockers and spironolactone.There is potential for revascularizationof the large left circumflex since it is feasible technically speaking. That will be something to consider down the road. Will continue aggressive modifications of risk factor for CAD. Atrial fibrillation is chronic and rate control and anticoagulation is the long-term plan. INR is therapeutic on Coumadin. Exam Physical Exam Vital Signs: Temp Pulse Resp BP Pulse Ox O2 Del Method O2 Flow Rate 97.9 F 81 18 146/82 H 95 Room Air 2 06/20/24 08:02 06/20/24 08:02 06/20/24 08:02 06/20/24 08:02 06/20/24 08:02 06/20/24 08:25 06/19/24 09:00 FiO2 30 06/16/24 14:00 Const General: cooperative, comfortable and no acute distress Nutritional Appearance: overweight Orientation: alert, awake and oriented x3 HEENT Head: normal to inspection, normocephalic and atraumatic Ears: hearing grossly normal bilaterally Nose: external nose normal Face and sinus: normal facial exam Eyes Conjunctivae: conjunctivae normal Pupils: PERRL Neck Neck: trachea midline and supple Neck mass: No Thyroid: thyroid normal Carotids: normal carotid upstroke Resp Effort & Inspection: normal respiratory effort Auscultation: clear to auscultation bilaterally Cardio Jugular venous pressure: no JVD Palpation: normal PMI Rate: regular rate Rhythm: abnormal rhythm irregularly irregular Heart Sounds: S1 normal and S2 normal GI Palpation: soft and no hepatosplenomegaly Auscultation: normal bowel sounds Extrem General: no clubbing, cyanosis or edema Objective Labs 06/20/24 04:05 06/20/24 04:05 Labs: Laboratory Results - last 24 hr 06/19/24 06/19/24 06/19/24 11:47 17:11 20:15 Corrected WBC Uncorrected WBC Count RBC Hgb Hct MCV MCH MCHC RDW Plt Count MPV Neut % (Auto) Lymph % (Auto) [place] % (Auto) Eos % (Auto) Baso % (Auto) Nucleat RBC Rel Count Neut # (Auto) Lymph # (Auto) [place] # (Auto) Eos # (Auto) Baso # (Auto) PT INR PHA Creatinine Clear Sodium Potassium Chloride Carbon Dioxide Anion Gap BUN Creatinine Est GFR (CKD-EPI) Glucose POC Glucose 250 186 154 Calcium Total Bilirubin AST ALT Alkaline Phosphatase Total Protein Albumin Globulin Albumin/Globulin Ratio 06/20/24 06/20/24 04:05 08:54 Corrected WBC 13.4 H Uncorrected WBC Count 13.4 H RBC 3.91 Hgb 12.0 Hct 36.0 MCV 92.1 MCH 30.7 MCHC 33.4 RDW 14.0 Plt Count 293 MPV 8.5 Neut % (Auto) 77.7 Lymph % (Auto) 9.5 [place] % (Auto) 11.6 Eos % (Auto) 1.0 Baso % (Auto) 0.2 Nucleat RBC Rel Count 0.7 H Neut # (Auto) 10.4 H Lymph # (Auto) 1.3 [place] # (Auto) 1.6 H Eos # (Auto) 0.1 Baso # (Auto) 0.0 PT 34.4 H INR 3.1 PHA Creatinine Clear 41.16 Sodium 135 L Potassium 3.6 Chloride 95 L Carbon Dioxide 32.8 H Anion Gap 10.8 BUN 42 H Creatinine 1.20 Est GFR (CKD-EPI) 46.333 Glucose 82 POC Glucose 90 Calcium 9.6 Total Bilirubin 0.8 AST 61 H ALT 382 H Alkaline Phosphatase 189 H Total Protein 6.3 L Albumin 3.5 Globulin 2.8 Albumin/Globulin Ratio 1.3 A&P - Cardiology (1) Permanent atrial fibrillation: Assessment/Problem Details: heart rate is under control on beta-jaguar Plan: Continue beta-blockers and Coumadin Code(s): I48.21 - Permanent atrial fibrillation (2) Left ventricular systolic dysfunction: Assessment/Problem Details: Ejection fraction is down to 25?30% due to severe ischemic cardiomyopathy Plan: Since renal function has returned to baseline, will switch from hydralazine to Entresto and continue beta-blockers but switch to long-acting metoprolol, continue spironolactone, will consider Jardiance heart failure therapy dosing Code(s): I51.89 - Other ill-defined heart diseases (3) Non-ST elevation (NSTEMI) myocardial infarction: Assessment/Problem Details: Due to severe coronary artery disease Plan: Antiplatelet therapy, high intensity statin, beta-blockers Code(s): I21.4 - Non-ST elevation (NSTEMI) myocardial infarction (4) 3-vessel coronary artery disease: Assessment/Problem Details: Cardiac catheterization revealed 100% occlusion of the proximal right coronary artery, 100% occlusion of the mid LAD and 95% occlusion of the mid left circumflex Plan: Aggressive modification of risk factors, antiplatelet therapy, nitrates and beta-blockers, down theroad we will consider PCI of the left circumflex Code(s): I25.10 - Atherosclerotic heart disease of [place] coronary artery without angina pectoris (5) Dyslipidemia: Plan: Continue high intensity statin Code(s): E78.5 - Hyperlipidemia, unspecified (6) Elevated liver transaminase level: Assessment/Problem Details: Moving towards normal Code(s): R74.01 - Elevation of levels of liver transaminase levels (7) Essential hypertension: Assessment/Problem Details: Currently under reasonable control Plan: Continue titrating heart failure therapy Code(s): I10 - Essential (primary) hypertension Plan 1. Continue supportive measures. Patient hemodynamically stable with slow and gradual improvement 2. Continue heart rate control and long-term anticoagulation strategy. INR is 3.5. She is off Lovenox 3. Continue with conservative management cardiac baxter 4. Patient was not felt to be a good candidate for PCI and felt to be high riskfor CABG unless clinical status improves 5. Consider adding Jardiance if renal function continues to remain stable Documented By: Frandy Cabrera MD, FACC [id number] Signed By: 06/20/24 1055 [facility]02-09-2025 Progress note Author Jaron Hicks [facility] Note Date/Time June 19, 2024 6 :42pm [facility] [address] [place], [place] [id number] Hospitalist Progress Note Signed Patient: Lyric Juarez MR#: [id number] : 1945 Acct:[id number] Age/Sex: 78 / F Adm Date: 5 Loc: Room: [address] [place] [address] Type: ADM IN Attending Dr: Jaron Hicks MD Copies to: ~ Date of Service: 06/19/2024 Subjective Subjective Narrative: Assessment And Plan 78F with history of HTN, HLD, DM, CKD, Afib, and URSULA who presented to [place] ED after dizziness associated with a fall and was transferred for possible UTI /sepsis Rule out Septic shock - resolved lactic acidosis - resolved rule out bacterial PNA the patient is afebrile there is no significant leukocytosis . Pulmonary was consulted She was started on Zosyn/vancomycin empirically and required norepinephrine dripdespite appropriate IV fluids CXR shows left lower lobe airspace disease and small left pleural effusion. Influenza A and B Antigen [place] [facility] negative Blood Cx at [place] [facility] 06/11 no growth at 36-48h UA [place] [facility] with WBC < 10 blood culture 06/12 negative so far Lactic acidosis could be related to metformin use; her shock could be more cardiogenic her Abx was deescalated to ceftriaxone she is to finish course of Abx Covid19 infection ABG shows no hypercapnia SARS-CoV-2 Ag positive at [facility] she received supportive treatment Hypoxia - improving she has required up to 3L via nasal cannula. Hypoxia could be related to HF exacerbation and/or Covid19 infection and/or respiratory infection ventilator dependence she was intubated since she can't lay flat to to the [facility]. she was extubated / Afib RVR - resolved She Presented with A-fib with rapid ventricular rate to [place] ED warfarin restarted. pharmacy to manage. Lovenox will be discontinued Hyponatremia - resolved Na as low as 123; Urine Osmolality 583; Urine Na 18 nephrology recommendation appreciated KARIS Cr 1.4 on admission - Cr is up to 2.1 likely KARIS due to the CARMEN Cr is better today nephrology on consult NSTEMI ICM Possible Acute HFrEF Troponin is > 10K Echo shows EF 40%; Takotsubo Syndrome, Mild AR, RVSP 40-50mmHg she was started on heparin gtt she was evaluated by Cardiology. she underwent LHC shows Severe three-vessel coronary artery disease . she found to be not a candidate for PCI or coronary bypass surgery she is to continue Dual antiplatelet therapy, Statin , vasodilators (hydralazineand nitrates) . WADE inhibitors/ARB's/ARNI to be Avoided Due to hyponatremia Jardiance to be considered ischemic hepatitis - improving AST/ALT reached up more than 1000. TB wnl hepatitis C and b testing negative this is Likely due to shock that cause ischemic hepatitis Keep Holding on statin CMP in am she was evaluated by GI coagulopathy INR up to 5.1; she was given Vit K and FFP to reverse INR for cardiac catheterization Hypomagnesemia Mg 1.1 on admission . it was Replaced DM blood sugars were reviewed A1c 7.6 back in April sliding scale insulin and accuchecks add small dose of daily Lantus hold oral antidiabetic medication/metformin. Fall CT head/brain wo con ([place] [facility]) shows no acute finding CT cervical spine wo con ([facility]) shows No acute cervical spinal fracture CXR ([facility]) no acute finding LINTERVAL HPI: As Above, Pt resting in bed. still weak all over worked mild hypoxia . AST/ALT is better toay Chronic diseases: Unless mentioned Above, Essential home medications have been continued. DVT Px: Addressed Disposition: To be determined - move out ICU if bed available Plan of care Discussed with: the medical team, the family at bedside L Exam Physical Exam Vital Signs: Temp Pulse Resp BP Pulse Ox O2 Del Method O2 Flow Rate 36.6 C 73 14 120/75 91 L Nasal Cannula 2 06/19/24 08:00 06/19/24 08:00 06/19/24 08:00 06/19/24 08:00 06/19/24 08:00 06/19/24 09:00 06/19/24 09:00 FiO2 30 06/16/24 14:00 Narrative: GEN: NAD, LUNGS: diminished breathing sounds CV: nl S1 S2; no M/R/G ABD: Soft, ND, NT, + BS, EXT: No calf muscle tenderness NEURO: generalized weakness move all her extremities Objective Lab Results 06/19/24 04:18 06/19/24 04:18 Meds Allergies and Active Meds Allergies flecainide Allergy (Unknown, Verified 05/17/24 08:07) Hives Active Meds: Active Medications Generic Name Dose Route Start Last Admin Trade Name Collinsq PRN Reason Stop Dose Admin Acetaminophen 650 mg 06/12/24 00:34 06/18/24 20:40 Acetaminophen 325 Mg Tablet PO 06/12/25 00:33 650 mg Q6HR PRN Administration Pain Scale 1 - 3 or fever Aspirin 81 mg 06/12/24 10:00 06/19/24 09:18 Aspirin 81 Mg Tab.Chew PO 06/12/25 09:59 81 mg DAILY ERNESTINA Administration Atorvastatin Calcium 80 mg 06/16/24 21:00 06/16/24 22:08 Atorvastatin 80 Mg Tablet PO 06/16/25 20:59 Not Given QPM ERNESTINA Benzonatate 200 mg 06/12/24 18:17 06/13/24 17:54 Benzonatate 100 Mg Capsule PO 06/12/25 18:16 200 mg TID PRN Administration Cough Clopidogrel Bisulfate 75 mg 06/14/24 09:00 06/19/24 09:18 Clopidogrel Bisulfate 75 Mg Tablet PO 06/14/25 08:59 75 mg DAILY ERNESTINA Administration Dextrose 0 gm 06/12/24 00:40 Dextrose 50% In Water 25 Gm/50 Ml Syringe IV-PUSH 06/12/25 00:39 PRN PRN Hypoglycemia Dorzolamide HCl 1 drops 06/12/24 09:00 06/19/24 09:18 Dorzolamide 2% Op Soln 200 Drops/10 Ml Bottle EYE-BOTH 06/12/25 08:59 1 drops DAILY ERNESTINA Administration Glucose 0 gm 06/12/24 00:40 Dextrose 40% Gel 15 Gm Tube PO 06/12/25 00:39 PRN PRN Hypoglycemia Hydralazine HCl 50 mg 06/17/24 21:00 06/19/24 09:18 Hydralazine 50 Mg Tablet PO 06/17/25 20:59 50 mg BID ERNESTINA Administration Magnesium Sulfate 2 gm in 50 mls @ 25 mls/hr 06/12/24 00:34 06/13/24 19:00 Magnesium Sulf 2gm-*Swfi* IV 06/12/25 00:33 Infused DAILY PRN Infusion Magnesium Level < 1.5 Sodium Chloride 500 mls @ 0 mls/hr 06/12/24 13:00 06/14/24 09:39 0.9% Sodium Chloride 500 Ml IV 06/12/25 12:59 10 mls/hr .Q0M ERNESTINA Administration Per Protocol Insulin Aspart 0 units 06/17/24 22:00 06/19/24 11:49 Insulin Aspart 300 Units/3 Ml SUBCUT 06/17/25 21:59 5 units ACHS ERNESTINA Administration Protocol Insulin Glargine 15 units 06/19/24 09:00 06/19/24 09:19 Insulin Glargine 300 Units/3 Ml Insuln.Pen SUBCUT 06/19/25 08:59 15 units DAILY ERNESTINA Administration Isosorbide Mononitrate 60 mg 06/18/24 06:00 06/19/24 06:22 Isosorbide Mononitrate 24hr Er 60 Mg Tab.Er.24h PO 06/18/25 05:59 60 mg DAILY.6A ERNESTINA Administration Melatonin 5 mg 06/13/24 22:00 06/18/24 22:15 Melatonin 5 Mg Tablet PO 06/13/25 21:59 Not Given QHS ERNESTINA Metoprolol Tartrate 25 mg 06/13/24 09:35 06/19/24 09:18 Metoprolol Tartrate 25 Mg Tablet PO 06/13/25 09:34 25 mg BID ERNESTINA Administration Nitroglycerin 0.4 mg 06/15/24 13:21 Nitroglycerin 0.4 Mg Tab.Subl SUBLINGUAL 06/15/25 13:20 Q5M PRN Chest Pain Ondansetron HCl 4 mg 06/12/24 00:34 06/18/24 11:26 Ondansetron 4 Mg/2 Ml Vial IV-PUSH 06/12/25 00:33 4 mg Q8H PRN Administration Nausea And Vomiting Ondansetron HCl 4 mg 06/15/24 13:21 Ondansetron 4 Mg/2 Ml Vial IV-PUSH 06/15/25 13:20 Q6H PRN Nausea And Vomiting Potassium Chloride 20 meq 06/12/24 00:34 06/13/24 06:43 Potassium Chloride Er 20 Meq Tab.Er.Prt PO 06/12/25 00:33 20 meq DAILY PRN Administration Hypokalemia Potassium Chloride 40 meq 06/12/24 00:34 Potassium Chloride Er 20 Meq Tab.Er.Prt PO 06/12/25 00:33 DAILY PRN Hypokalemia Sodium Chloride 0 ml 06/13/24 10:29 06/18/24 11:26 Sodium Chloride 0.9 % 10 Ml Syringe IV-PUSH 06/13/25 10:28 10 ml PRN PRN Administration Flush Sodium Chloride 0 ml 06/14/24 15:15 Sodium Chloride 0.9 % 10 Ml Syringe IV-PUSH 06/14/25 15:14 PRN PRN Flush Spironolactone 25 mg 06/16/24 09:00 06/19/24 09:18 Spironolactone 25 Mg Tablet PO 06/16/25 08:59 25 mg DAILY ERNESTINA Administration Timolol Maleate 1 drops 06/12/24 09:00 06/19/24 09:18 Timolol Mal 0.5% Op Soln 100 Drops/5 Ml Bottle EYE-BOTH 06/12/25 08:59 1 drops DAILY ERNESTINA Administration Warfarin Sodium 1 each 06/16/24 18:34 Warfarin - Pharmacy Dosing MISCELLANE 06/16/25 18:33 PRN PRN zz.Pharmacy Note A&P - Hospitalist Assessment/Plan (1) COVID-19: Plan Documented By: Jaron Hicks MD 06/19/24 1703 Signed By: <Electronically signed by Jaron Hicks MD> 06/19/24 1844 [facility] Work Phone: [phone]) 954-992402-09-2025 [place] [address] Hospitalist Progress Note Signed Patient: Lyric Juarez MR#: [id number] : 1945 Acct:[id number] Age/Sex: 78 / F Adm Date: 5 Loc: Room: [address] [place] [address] Type: ADM IN Attending Dr: Jaron Hicks MD Copies to: ~ Date of Service: 06/19/2024 Subjective Subjective Narrative: Assessment And Plan 78F with history of HTN, HLD, DM, CKD, Afib, and URSULA who presented to [place] ED after dizziness associated with a fall and was transferred for possible UTI /sepsis Rule out Septic shock - resolved lactic acidosis - resolved rule out bacterial PNA the patient is afebrile there is no significant leukocytosis . Pulmonary was consulted She was started on Zosyn/vancomycin empirically and required norepinephrine dripdespite appropriateIV fluids CXR shows left lower lobe airspace disease and small left pleural effusion. Influenza A and B Antigen [facility] negative Blood Cx at [facility] 06/11 no growth at 36-48h UA [place] ED with WBC < 10 blood culture 06/12 negative so far Lactic acidosis could be related to metformin use; her shock could be more cardiogenic her Abx was deescalated to ceftriaxone she is to finish course of Abx Covid19 infection ABG shows no hypercapnia SARS-CoV-2 Ag positive at [facility] she received supportive treatment Hypoxia - improving she has required up to 3L via nasal cannula. Hypoxia could be related to HF exacerbation and/or Covid19 infection and/or respiratory infection ventilator dependence she was intubated since she can't lay flat to to the [facility]. she was extubated 05/16 Afib RVR - resolved She Presented with A-fib with rapid ventricular rate to [place] ED warfarin restarted. pharmacy to manage. Lovenox will be discontinued Hyponatremia - resolved Na as low as 123; Urine Osmolality 583; Urine Na 18 nephrology recommendation appreciated KARIS Cr 1.4 on admission - Cr is up to 2.1 likely KARIS due to the CARMEN Cr is better today nephrology on consult NSTEMI ICM Possible Acute HFrEF Troponin is > 10K Echo shows EF 40%; Takotsubo Syndrome, Mild [place], RVSP 40-50mmHg she was started on heparin gtt she was evaluated by Cardiology. she underwent C shows Severe three-vessel coronary artery disease . she found to be not a candidate for PCI or coronary bypass surgery she is to continue Dual antiplatelet therapy, Statin , vasodilators (hydralazineand nitrates) . ACEinhibitors/ARB's/ARNI to be Avoided Due to hyponatremia Jardiance to be considered ischemic hepatitis - improving AST/ALT reached up more than 1000. TB wnl hepatitis C and b testing negative this is Likely due to shock that cause ischemic hepatitis Keep Holding on statin CMP in am she was evaluated by GI coagulopathy INR up to 5.1; she was given Vit K and FFP to reverse INR for cardiac catheterization Hypomagnesemia Mg 1.1 on admission . it was Replaced DM blood sugars were reviewed A1c 7.6 back in April sliding scale insulin and accuchecks add small dose of daily Lantus hold oral antidiabetic medication/metformin. Fall CT head/brain wo con ([place] [facility]) shows no acute finding CT cervical spine wo con ([facility]) shows No acute cervical spinal fracture CXR ([facility]) no acute finding LINTERVAL HPI: As Above, Pt resting in bed. still weak all over worked mild hypoxia . AST/ALT is better toay Chronic diseases: Unless mentioned Above, Essential home medications have been continued. DVT Px: Addressed Disposition: To be determined - move out ICU if bed available Plan of care Discussed with: the medical team, the family at bedside L Exam Physical Exam Vital Signs: Temp Pulse Resp BP Pulse Ox O2 Del Method O2 Flow Rate 36.6 C 73 14 120/75 91 L Nasal Cannula 2 06/19/24 08:00 06/19/24 08:00 06/19/24 08:00 06/19/24 08:00 06/19/24 08:00 06/19/24 09:00 06/19/24 09:00 FiO2 30 06/16/24 14:00 Narrative: GEN: NAD, LUNGS: diminished breathing sounds CV: nl S1 S2; no M/R/G ABD: Soft, ND, NT, + BS, EXT: No calf muscle tenderness NEURO: generalized weakness move all her extremities Objective Lab Results 06/19/24 04:18 06/19/24 04:18 Meds Allergies and Active Meds Allergies flecainide Allergy (Unknown, Verified 05/17/24 08:07) Hives Active Meds: Active Medications Generic Name Dose Route Start Last Admin Trade Name Freq PRN Reason Stop Dose Admin Acetaminophen 650 mg 06/12/24 00:34 06/18/24 20:40 Acetaminophen 325 Mg Tablet PO 06/12/25 00:33 650 mg Q6HR PRN Administration Pain Scale 1 - 3 or fever Aspirin 81 mg 06/12/24 10:00 06/19/24 09:18 Aspirin 81 Mg Tab.Chew PO 06/12/25 09:59 81 mg DAILY ERNESTINA Administration Atorvastatin Calcium 80 mg 06/16/24 21:00 06/16/24 22:08 Atorvastatin 80 Mg Tablet PO 06/16/25 20:59 Not Given QPM ERNESTINA Benzonatate 200 mg 06/12/24 18:17 06/13/24 17:54 Benzonatate 100 Mg Capsule PO 06/12/25 18:16 200 mg TID PRN Administration Cough Clopidogrel Bisulfate 75 mg 06/14/24 09:00 06/19/24 09:18 Clopidogrel Bisulfate 75 Mg Tablet PO 06/14/25 08:59 75 mg DAILY ERNESTINA Administration Dextrose 0 gm 06/12/24 00:40 Dextrose 50% In Water 25 Gm/50 Ml Syringe IV-PUSH 06/12/25 00:39 PRN PRN Hypoglycemia Dorzolamide HCl 1 drops 06/12/24 09:00 06/19/24 09:18 Dorzolamide 2% Op Soln 200 Drops/10 Ml Bottle EYE-BOTH 06/12/25 08:59 1 drops DAILY ERNESTINA Administration Glucose 0 gm 06/12/24 00:40 Dextrose 40% Gel 15 Gm Tube PO 06/12/25 00:39 PRN PRN Hypoglycemia Hydralazine HCl 50 mg 06/17/24 21:00 06/19/24 09:18 Hydralazine 50 Mg Tablet PO 06/17/25 20:59 50 mg BID ERNESTINA Administration Magnesium Sulfate 2 gm in 50 mls @ 25 mls/hr 06/12/24 00:34 06/13/24 19:00 Magnesium Sulf 2gm-*Swfi* IV 06/12/25 00:33 Infused DAILY PRN Infusion Magnesium Level < 1.5 Sodium Chloride 500 mls @ 0 mls/hr 06/12/24 13:00 06/14/24 09:39 0.9% Sodium Chloride 500 Ml IV 06/12/25 12:59 10 mls/hr .Q0M ERNESTINA Administration Per Protocol Insulin Aspart 0 units 06/17/24 22:00 06/19/24 11:49 Insulin Aspart 300 Units/3 Ml SUBCUT 06/17/25 21:59 5 units ACHS ERNESTINA Administration Protocol Insulin Glargine 15 units 06/19/24 09:00 06/19/24 09:19 Insulin Glargine 300 Units/3 Ml Insuln.Pen SUBCUT 06/19/25 08:59 15 units DAILY ERNESTINA Administration Isosorbide Mononitrate 60 mg 06/18/24 06:00 06/19/24 06:22 Isosorbide Mononitrate 24hr Er 60 Mg Tab.Er.24h PO 06/18/25 05:59 60 mg DAILY.6A ERNESTINA Administration Melatonin 5 mg 06/13/24 22:00 06/18/24 22:15 Melatonin 5 Mg Tablet PO 06/13/25 21:59 Not Given QHS ERNESTINA Metoprolol Tartrate 25 mg 06/13/24 09:35 06/19/24 09:18 Metoprolol Tartrate 25 Mg Tablet PO 06/13/25 09:34 25 mg BID ERNESTINA Administration Nitroglycerin 0.4 mg 06/15/24 13:21 Nitroglycerin 0.4 Mg Tab.Subl SUBLINGUAL 06/15/25 13:20 Q5M PRN Chest Pain Ondansetron HCl 4 mg 06/12/24 00:34 06/18/24 11:26 Ondansetron 4 Mg/2 Ml Vial IV-PUSH 06/12/25 00:33 4 mg Q8H PRN Administration Nausea And Vomiting Ondansetron HCl 4 mg 06/15/24 13:21 Ondansetron 4 Mg/2 Ml Vial IV-PUSH 06/15/25 13:20 Q6H PRN Nausea And Vomiting Potassium Chloride 20 meq 06/12/24 00:34 06/13/24 06:43 Potassium Chloride Er 20 Meq Tab.Er.Prt PO 06/12/25 00:33 20 meq DAILY PRN Administration Hypokalemia Potassium Chloride 40 meq 06/12/24 00:34 Potassium Chloride Er 20 Meq Tab.Er.Prt PO 06/12/25 00:33 DAILY PRN Hypokalemia Sodium Chloride 0 ml 06/13/24 10:29 06/18/24 11:26 Sodium Chloride 0.9 % 10 Ml Syringe IV-PUSH 06/13/25 10:28 10 ml PRN PRN Administration Flush Sodium Chloride 0 ml 06/14/24 15:15 Sodium Chloride 0.9 % 10 Ml Syringe IV-PUSH 06/14/25 15:14 PRN PRN Flush Spironolactone 25 mg 06/16/24 09:00 06/19/24 09:18 Spironolactone 25 Mg Tablet PO 06/16/25 08:59 25 mg DAILY ERNESTINA Administration Timolol Maleate 1 drops 06/12/24 09:00 06/19/24 09:18 Timolol Mal 0.5% Op Soln 100 Drops/5 Ml Bottle EYE-BOTH 06/12/25 08:59 1 drops DAILY ERNESTINA Administration Warfarin Sodium 1 each 06/16/24 18:34 Warfarin - Pharmacy Dosing MISCELLANE 06/16/25 18:33 PRN PRN zz.[email or web address] Note A&P - Hospitalist Assessment/Plan (1) COVID-19: Plan Documented By: Jaron Hicks MD 06/19/24 1703 Signed By: 06/19/24 1842 [facility]02-09-2025 Progress note Author Enrico Millan [facility] Note Date/Time June 19, 2024 1 :02pm [facility] [address] [place] [address] Cardiology Progress Note Signed Patient: Lyric Juarez MR#: [id number] : 1945 Acct:[id number] Age/Sex: 78 / F Adm Date: 5 Loc: Room: [address] [place] [address] Type: ADM IN Attending Dr: Jaron Hicks MD Copies to: ~ Date of Service: 06/19/2024 Subjective Principal diagnosis: Congestive heart failure/non-ST elevation myocardial infarction Interval history: Patient feels better. Heart rate reasonably controlled no new cardiac complaint Exam Physical Exam Vital Signs: Temp Pulse Resp BP Pulse Ox O2 Del Method O2 Flow Rate 97.8 F 73 14 120/75 91 L Nasal Cannula 2 06/19/24 08:00 06/19/24 08:00 06/19/24 08:00 06/19/24 08:00 06/19/24 08:00 06/19/24 09:00 06/19/24 09:00 FiO2 30 06/16/24 14:00 Const General: cooperative Neck Neck: supple Lymphatic: no lymphadenopathy noted Resp Effort & Inspection: normal respiratory effort Auscultation: clear to auscultation bilaterally Cardio Palpation: normal PMI Rhythm: abnormal rhythm irregularly irregular Heart Sounds: S1 normal and S2 normal Skin General: dry skin Extrem General: full ROM and no clubbing, cyanosis or edema Objective Labs 06/19/24 04:18 06/19/24 04:18 Labs: Laboratory Results - last 24 hr 06/18/24 06/18/24 06/19/24 16:48 20:37 04:18 Corrected WBC 15.4 H Uncorrected WBC Count 15.4 H RBC 3.92 Hgb 12.1 Hct 35.8 MCV 91.3 MCH 30.7 MCHC 33.7 RDW 14.2 Plt Count 288 MPV 8.6 Neut % (Auto) N/A Lymph % (Auto) N/A [place] % (Auto) N/A Eos % (Auto) N/A Baso % (Auto) N/A Nucleat RBC Rel Count N/A Neut # (Auto) N/A Lymph # (Auto) N/A [place] # (Auto) N/A Eos # (Auto) N/A Baso # (Auto) N/A Band Neutrophils % 1 Lymphocytes % 3 L Monocytes % 9 Metamyelocytes % 3 H Myelocytes % 1 H Segmented Neutrophils 83 H Toxic Vacuolation Slight Platelet Estimate Normal Giant Platelets 1 Plt Morphology Comment Normal RBC Morphology N/A Polychromasia Moderate Poikilocytosis Moderate Basophilic Stippling Slight Anisocytosis Slight Microcytosis Slight Ovalocytes Slight Crenated Cell Moderate PT 39.0 H INR 3.5 PHA Creatinine Clear 35.18 Sodium 136 Potassium 3.7 Chloride 97 L Carbon Dioxide 27.2 Anion Gap 15.5 H BUN 52 H Creatinine 1.39 H D Est GFR (CKD-EPI) 38.841 Glucose 144 H POC Glucose 199 139 POC Glucose Comment Glu2: cleaned meter Calcium 9.1 Total Bilirubin 0.8 AST 103 H ALT 565 H Alkaline Phosphatase 222 H Total Protein 6.2 L Albumin 3.6 Globulin 2.6 Albumin/Globulin Ratio 1.4 06/19/24 06/19/24 08:16 11:47 Corrected WBC Uncorrected WBC Count RBC Hgb Hct MCV MCH MCHC RDW Plt Count MPV Neut % (Auto) Lymph % (Auto) [place] % (Auto) Eos % (Auto) Baso % (Auto) Nucleat RBC Rel Count Neut # (Auto) Lymph # (Auto) [place] # (Auto) Eos # (Auto) Baso # (Auto) Band Neutrophils % Lymphocytes % Monocytes % Metamyelocytes % Myelocytes % Segmented Neutrophils Toxic Vacuolation Platelet Estimate Giant Platelets Plt Morphology Comment RBC Morphology Polychromasia Poikilocytosis Basophilic Stippling Anisocytosis Microcytosis Ovalocytes Crenated Cell PT INR PHA Creatinine Clear Sodium Potassium Chloride Carbon Dioxide Anion Gap BUN Creatinine Est GFR (CKD-EPI) Glucose POC Glucose 179 250 POC Glucose Comment Calcium Total Bilirubin AST ALT Alkaline Phosphatase Total Protein Albumin Globulin Albumin/Globulin Ratio A&P - Cardiology (1) Permanent atrial fibrillation: Code(s): I48.21 - Permanent atrial fibrillation (2) Left ventricular systolic dysfunction: Assessment/Problem Details: Ejection fraction is down to 25?30% due to severe ischemic cardiomyopathy Plan: Due to hyponatremia will avoid WADE inhibitor, ARB and ARNI, continue beta- blockers and spironolactone, uptitrate hydralazine and nitrates due to hypertension Code(s): I51.89 - Other ill-defined heart diseases (3) Non-ST elevation (NSTEMI) myocardial infarction: Code(s): I21.4 - Non-ST elevation (NSTEMI) myocardial infarction (4) 3-vessel coronary artery disease: Code(s): I25.10 - Atherosclerotic heart disease of [place] coronary artery without angina pectoris (5) Hyponatremia: Code(s): E87.1 - Hypo-osmolality and hyponatremia (6) COVID-19: Code(s): U07.1 - COVID-19 (7) Dyslipidemia: Code(s): E78.5 - Hyperlipidemia, unspecified (8) Elevated liver transaminase level: Code(s): R74.01 - Elevation of levels of liver transaminase levels (9) Acute kidney injury: Code(s): N17.9 - Acute kidney failure, unspecified (10) Essential hypertension: Code(s): I10 - Essential (primary) hypertension Plan 1. Continue supportive measures. Patient hemodynamically stable with slow and gradual improvement 2. Continue heart rate control and long-term anticoagulation strategy. INR is 3.5. She is off Lovenox 3. Continue with conservative management cardiac baxter 4. Patient was not felt to be a good candidate for PCI and felt to be high riskfor CABG unless clinical status improves 5. Consider adding Jardiance if renal function continues to remain stable Documented By: Enrico Millan MD 06/19/24 1256 Signed By: <Electronically signed by MD Enrico Millan> 06/19/24 1302 [facility] Work Phone: 1(253) 822-231102-09-2025 Progress note Author Elvis Philip [facility] Note Date/Time June 19, 2024 1 2:15pm [facility] [address] [place] [address] Nephrology Progress Note Signed Patient: Lyric Juarez MR#: [id number] : 1945 Acct:[id number] Age/Sex: 78 / F Adm Date: 5 Loc: Room: [address] [place] [address] Type: ADM IN Attending Dr: Jaron Hicks MD Copies to: ~ Date of Service: 06/19/2024 Subjective Subjective Narrative: This is a 78-year-old female with medical history of atrial fibrillation, HTN, DM, CKD, HLD was presented to the [facility] after a fall. On evaluationin emergency room she was found to have a fever with tachycardia. Her EKG showed A- fib with RVR and was given normal saline fluid boluses to improve her heart rate. She was transferred to the [facility] for sepsis management. Patient after arrival at [facility] was found to have a hypotension with a fall. She was given a normal saline bolus but due to the persistent hypotension she was moved to the intensive care unit and was started on Levophed. She was also given broad-spectrum antibioticsfor sepsis. Patient was also found to have a non-ST elevated AZ and cardiology was consulted. She had echocardiogram which showed EF 35 to 40% moderate pulmonary hypertension and dilated IVC. Cardiology also recommended a cardiac catheterization. Patient was also found to have a hyponatremia with serum sodium 123 to 124 mmol/L. She was given Bumex to improve her respiratory status. Nephrology is consulted for her hyponatremia management and CARMEN and risk stratification and prophylaxis. Patient underwent cardiac catheterization on 06/15/2024 and was found to have a three-vessel disease. Patient is not a suitable candidate for PCI or CABG. Cardiology recommended medical management. She was intubated in anticipation of the cardiac cath and was successfully extubated on 06/16/2024. Interim history Patient was seen and examined at bedside. She denies any chest pain palpation cough nausea vomit diarrhea and shortness of breath. She has a hyponatremia due to the hypervolemia. Her serum sodium improved with the diuresis. She also have a KARIS due to the CARMEN. Renal function is improving and she is making adequate urine output. Exam Physical Exam Vital Signs: Temp Pulse Resp BP Pulse Ox O2 Del Method O2 Flow Rate 97.8 F 73 14 120/75 91 L Nasal Cannula 2 06/19/24 08:00 06/19/24 08:00 06/19/24 08:00 06/19/24 08:00 06/19/24 08:00 06/19/24 09:00 06/19/24 09:00 FiO2 30 06/16/24 14:00 Narrative: General: Appears comfortable and not in distress Heart: S1-S2, no rub Lung: Bilateral air entry, no wheezing or crackles Abdomen: Soft, positive bowel sounds Extremities: No edema, no cyanosis Head: Atraumatic, normocephalic Ear: No gross hearing Deficit or external ear redness Eyes: No pallor or redness Neck: No JVD or visible mass Skin: No rashes , warm to touch [place] FILLER: Awake,Alert, following simple command Musculoskeletal: No swelling or limitation of movement of the large joints Psychiatric: Cooperative, normal mood and affect Objective Intake and Output I&O: Intake & Output 06/16/24 06/17/24 06/18/24 06/19/24 23:59 23:59 23:59 23:59 Intake Total 380 / 380 1480 / 1480 795 / 795 0 / 0 Output Total 1725 / 1725 525 / 525 1525 / 1525 650 / 650 Balance -1345 / -1345 955 / 955 -730 / -730 -650 / -650 Weight 82 kg 81.5 kg 81.5 kg 82.3 kg Meds and Allergies Meds: Active Medications Acetaminophen (Acetaminophen 325 Mg Tablet) 650 mg PO Q6HR PRN PRN Reason: Pain Scale 1 - 3 or fever Stop: 06/12/25 00:33 Last Admin: 06/18/24 20:40 Dose: 650 mg Aspirin (Aspirin 81 Mg Tab.Chew) 81 mg PO DAILY [facility] Stop: 06/12/25 09:59 Last Admin: 06/19/24 09:18 Dose: 81 mg Atorvastatin Calcium (Atorvastatin 80 Mg Tablet) 80 mg PO QPM ERNESTINA Stop: 06/16/25 20:59 Last Admin: 06/16/24 22:08 Dose: Not Given Benzonatate (Benzonatate 100 Mg Capsule) 200 mg PO TID PRN PRN Reason: Cough Stop: 06/12/25 18:16 Last Admin: 06/13/24 17:54 Dose: 200 mg Clopidogrel Bisulfate (Clopidogrel Bisulfate 75 Mg Tablet) 75 mg PO DAILY [facility] Stop: 06/14/25 08:59 Last Admin: 06/19/24 09:18 Dose: 75 mg Dextrose (Dextrose 50% In Water 25 Gm/50 Ml Syringe) 0 gm IV-PUSH PRN PRN PRN Reason: Hypoglycemia Stop: 06/12/25 00:39 Dorzolamide HCl (Dorzolamide 2% Op Soln 200 Drops/10 Ml Bottle) 1 drops EYE-BOTH DAILY [facility] Stop: 06/12/25 08:59 Last Admin: 06/19/24 09:18 Dose: 1 drops Glucose (Dextrose 40% Gel 15 Gm Tube) 0 gm PO PRN PRN PRN Reason: Hypoglycemia Stop: 06/12/25 00:39 Hydralazine HCl (Hydralazine 50 Mg Tablet) 50 mg PO BID [facility] Stop: 06/17/25 20:59 Last Admin: 06/19/24 09:18 Dose: 50 mg Magnesium Sulfate (Magnesium Sulf 2gm-*Swfi*) 2 gm in 50 mls @ 25 mls/hr IV DAILY PRN PRN Reason: Magnesium Level < 1.5 Stop: 06/12/25 00:33 Last Infusion: 06/13/24 19:00 Dose: Infused Sodium Chloride (0.9% Sodium Chloride 500 Ml) 500 mls @ 0 mls/hr IV .Q0M [facility] Stop: 06/12/25 12:59 Last Admin: 06/14/24 09:39 Dose: 10 mls/hr Insulin Aspart (Insulin Aspart 300 Units/3 Ml) 0 units SUBCUT ACHS [facility]; Protocol Stop: 06/17/25 21:59 Last Admin: 06/19/24 11:49 Dose: 5 units Insulin Glargine (Insulin Glargine 300 Units/3 Ml Insuln.Pen) 15 units SUBCUT DAILY [facility] Stop: 06/19/25 08:59 Last Admin: 06/19/24 09:19 Dose: 15 units Isosorbide Mononitrate (Isosorbide Mononitrate 24hr Er 60 Mg Tab.Er.24h) 60 mg PO DAILY.6A [facility] Stop: 06/18/25 05:59 Last Admin: 06/19/24 06:22 Dose: 60 mg Melatonin (Melatonin 5 Mg Tablet) 5 mg PO QHS [facility] Stop: 06/13/25 21:59 Last Admin: 06/18/24 22:15 Dose: Not Given Metoprolol Tartrate (Metoprolol Tartrate 25 Mg Tablet) 25 mg PO BID [facility] Stop: 06/13/25 09:34 Last Admin: 06/19/24 09:18 Dose: 25 mg Nitroglycerin (Nitroglycerin 0.4 Mg Tab.Subl) 0.4 mg SUBLINGUAL Q5M PRN PRN Reason: Chest Pain Stop: 06/15/25 13:20 Ondansetron HCl (Ondansetron 4 Mg/2 Ml Vial) 4 mg IV-PUSH Q8H PRN PRN Reason: Nausea And Vomiting Stop: 06/12/25 00:33 Last Admin: 06/18/24 11:26 Dose: 4 mg Ondansetron HCl (Ondansetron 4 Mg/2 Ml Vial) 4 mg IV-PUSH Q6H PRN PRN Reason: Nausea And Vomiting Stop: 06/15/25 13:20 Potassium Chloride (Potassium Chloride Er 20 Meq Tab.Er.Prt) 20 meq PO DAILY PRN PRN Reason: Hypokalemia Stop: 06/12/25 00:33 Last Admin: 06/13/24 06:43 Dose: 20 meq Potassium Chloride (Potassium Chloride Er 20 Meq Tab.Er.Prt) 40 meq PO DAILY PRN PRN Reason: Hypokalemia Stop: 06/12/25 00:33 Sodium Chloride (Sodium Chloride 0.9 % 10 Ml Syringe) 0 ml IV-PUSH PRN PRN PRN Reason: Flush Stop: 06/13/25 10:28 Last Admin: 06/18/24 11:26 Dose: 10 ml Sodium Chloride (Sodium Chloride 0.9 % 10 Ml Syringe) 0 ml IV-PUSH PRN PRN PRN Reason: Flush Stop: 06/14/25 15:14 Spironolactone (Spironolactone 25 Mg Tablet) 25 mg PO DAILY [facility] Stop: 06/16/25 08:59 Last Admin: 06/19/24 09:18 Dose: 25 mg Timolol Maleate (Timolol Mal 0.5% Op Soln 100 Drops/5 Ml Bottle) 1 drops EYE- BOTH DAILY ERNESTINA Stop: 06/12/25 08:59 Last Admin: 06/19/24 09:18 Dose: 1 drops Warfarin Sodium (Warfarin - Pharmacy Dosing) 1 each MISCELLANE PRN PRN PRN Reason: zz.Pharmacy Note Stop: 06/16/25 18:33 Allergies flecainide Allergy (Unknown, Verified 05/17/24 08:07) Hives Results - Nephrology Labs 06/19/24 04:18 06/19/24 04:18 Labs: 06/19/24 04:18 BUN 52 H Creatinine 1.39 H D Albumin 3.6 Radiology Impressions Impressions - last 24 hours: Any impression(s) listed above is documentation that was entered by the reading physician into a diagnostic report(s) for Lyric Juarez. I have reviewed the report(s) and am incorporating any findings in the treatment plan of this patient where applicable. A&P - Nephrology Assessment/Plan (1) Acute kidney injury superimposed on CKD: Assessment/Problem Details: She likely has an KARIS due to the CARMEN. Her renal function is improving and she is making adequate urine output. (2) Hyponatremia: Assessment/Problem Details: She had hyponatremia due to the hypervolemia. Her serum sodium improved with diuresis. (3) CKD stage 3a, GFR 45-59 ml/min: Assessment/Problem Details: She has a CKD due to the DM and HTN with baseline serum creatinine around 1.1 mg/dL. Her renal function initially was worse due to the hypotension but improved with optimization of her hemodynamics. (4) Hypokalemia: Assessment/Problem Details: She had hypokalemia due to the diuretic induced renal potassium wasting. Her potassium is back to normal with oral and IV replacement. (5) Non-ST elevation (NSTEMI) myocardial infarction: Assessment/Problem Details: Patient also diagnosed to have a AZ. She was found to have a three-vessel disease. Medical management was recommended by cardiology. (6) Sepsis: Assessment/Problem Details: Patient presented with a sepsis and initially required vasopressors. She has finished a course of antibiotics. (7) COVID-19: Assessment/Problem Details: Patient has COVID-19 infection. She is currently on steroids. Pulmonary has been following the patient. (8) Atrial fibrillation: Assessment/Problem Details: Patient has atrial fibrillation. Currently on metoprolol. Plan * On renal function is improving and she is making adequate urine output. Will continue to monitor without diuretics or IV fluid. * Continue current dose of the spironolactone. * Continue management of CAD and A-fib as per cardiology. * Check renal function daily and monitor serum sodium closely * Monitor input output Daily and daily weight. * Documented By: Elvis Philip MD 06/19/24 1211 Signed By: <Electronically signed by Elvis Philip MD> 06/19/24 1215 [facility] Work Phone: [phone]) 879-291702-09-2025 [place] [address] Cardiology Progress Note Signed Patient: Lyric Juarez MR#: [id number] : 1945 Acct:[id number] Age/Sex: 78 / F Adm Date: 5 Loc: Room: [address] [place] [address] Type: ADM IN Attending Dr: Jaron Hicks MD Copies to: ~ Date of Service: 06/19/2024 Subjective Principal diagnosis: Congestive heart failure/non-ST elevation myocardial infarction Interval history: Patient feels better. Heart rate reasonably controlled no new cardiac complaint Exam Physical Exam Vital Signs: Temp Pulse Resp BP Pulse Ox O2 Del Method O2 Flow Rate 97.8 F 73 14 120/75 91 L Nasal Cannula 2 06/19/24 08:00 06/19/24 08:00 06/19/24 08:00 06/19/24 08:00 06/19/24 08:00 06/19/24 09:00 06/19/24 09:00 FiO2 30 06/16/24 14:00 Const General: cooperative Neck Neck: supple Lymphatic: no lymphadenopathy noted Resp Effort & Inspection: normal respiratory effort Auscultation: clear to auscultation bilaterally Cardio Palpation: normal PMI Rhythm: abnormal rhythm irregularly irregular Heart Sounds: S1 normal and S2 normal Skin General: dry skin Extrem General: full ROM and no clubbing, cyanosis or edema Objective Labs 06/19/24 04:18 06/19/24 04:18 Labs: Laboratory Results - last 24 hr 06/18/24 06/18/24 06/19/24 16:48 20:37 04:18 Corrected WBC 15.4 H Uncorrected WBC Count 15.4 H RBC 3.92 Hgb 12.1 Hct 35.8 MCV 91.3 MCH 30.7 MCHC 33.7 RDW 14.2 Plt Count 288 MPV 8.6 Neut % (Auto) N/A Lymph % (Auto) N/A [place] % (Auto) N/A Eos % (Auto) N/A Baso % (Auto) N/A Nucleat RBC Rel Count N/A Neut # (Auto) N/A Lymph # (Auto) N/A [place] # (Auto) N/A Eos # (Auto) N/A Baso # (Auto) N/A Band Neutrophils % 1 Lymphocytes % 3 L Monocytes % 9 Metamyelocytes % 3 H Myelocytes % 1 H Segmented Neutrophils 83 H Toxic Vacuolation Slight Platelet Estimate Normal Giant Platelets 1 Plt Morphology Comment Normal RBC Morphology N/A Polychromasia Moderate Poikilocytosis Moderate Basophilic Stippling Slight Anisocytosis Slight Microcytosis Slight Ovalocytes Slight Crenated Cell Moderate PT 39.0 H INR 3.5 PHA Creatinine Clear 35.18 Sodium 136 Potassium 3.7 Chloride 97 L Carbon Dioxide 27.2 Anion Gap 15.5 H BUN 52 H Creatinine 1.39 H D Est GFR (CKD-EPI) 38.841 Glucose 144 H POC Glucose 199 139 POC Glucose Comment Glu2: cleaned meter Calcium 9.1 Total Bilirubin 0.8 AST 103 H ALT 565 H Alkaline Phosphatase 222 H Total Protein 6.2 L Albumin 3.6 Globulin 2.6 Albumin/Globulin Ratio 1.4 06/19/24 06/19/24 08:16 11:47 Corrected WBC Uncorrected WBC Count RBC Hgb Hct MCV MCH MCHC RDW Plt Count MPV Neut % (Auto) Lymph % (Auto) [place] % (Auto) Eos % (Auto) Baso % (Auto) Nucleat RBC Rel Count Neut # (Auto) Lymph # (Auto) [place] # (Auto) Eos # (Auto) Baso # (Auto) Band Neutrophils % Lymphocytes % Monocytes % Metamyelocytes % Myelocytes % Segmented Neutrophils Toxic Vacuolation Platelet Estimate Giant Platelets Plt Morphology Comment RBC Morphology Polychromasia Poikilocytosis Basophilic Stippling Anisocytosis Microcytosis Ovalocytes Crenated Cell PT INR PHA Creatinine Clear Sodium Potassium Chloride Carbon Dioxide Anion Gap BUN Creatinine Est GFR (CKD-EPI) Glucose POC Glucose 179 250 POC Glucose Comment Calcium Total Bilirubin AST ALT Alkaline Phosphatase Total Protein Albumin Globulin Albumin/Globulin Ratio A&P - Cardiology (1) Permanent atrial fibrillation: Code(s): I48.21 - Permanent atrial fibrillation (2) Left ventricular systolic dysfunction: Assessment/Problem Details: Ejection fraction is down to 25?30% due to severe ischemic cardiomyopathy Plan: Due to hyponatremia will avoid WADE inhibitor, ARB and ARNI, continue beta- blockers and spironolactone, uptitrate hydralazine and nitrates due to hypertension Code(s): I51.89 - Other ill-defined heart diseases (3) Non-ST elevation (NSTEMI) myocardial infarction: Code(s): I21.4 - Non-ST elevation (NSTEMI) myocardial infarction (4) 3-vessel coronary artery disease: Code(s): I25.10 - Atherosclerotic heart disease of [place] coronary artery without angina pectoris (5) Hyponatremia: Code(s): E87.1 - Hypo-osmolality and hyponatremia (6) COVID-19: Code(s): U07.1 - COVID-19 (7) Dyslipidemia: Code(s): E78.5 - Hyperlipidemia, unspecified (8) Elevated liver transaminase level: Code(s): R74.01 - Elevation of levels of liver transaminase levels (9) Acute kidney injury: Code(s): N17.9 - Acute kidney failure, unspecified (10) Essential hypertension: Code(s): I10 - Essential (primary) hypertension Plan 1. Continue supportive measures. Patient hemodynamically stable with slow and gradual improvement 2. Continue heart rate control and long-term anticoagulation strategy. INR is 3.5. She is off Lovenox 3. Continue with conservative management cardiac baxter 4. Patient was not felt to be a good candidate for PCI and felt to be high riskfor CABG unless clinical status improves 5. Consider adding Jardiance if renal function continues to remain stable Documented By: Enrico Millan MD 06/19/24 1259 Signed By: 06/19/24 1302 [facility]02-09-2025 [place] [address] Nephrology Progress Note Signed Patient: Lyric Juarez MR#: [id number] : 1945 Acct:[id number] Age/Sex: 78 / F Adm Date: 5 Loc: Room: 6K3370-1 Type: ADM IN Attending Dr: Jaron Hicks MD Copies to: ~ Date of Service: 06/19/2024 Subjective Subjective Narrative: This is a 78-year-old female with medical history of atrial fibrillation, HTN, DM, CKD, HLD was presented to the [facility] after a fall. On evaluationin emergency room she was found to have afever with tachycardia. Her EKG showed A-fib with RVR and was given normal saline fluid boluses to improve her heart rate. She was transferred to the [facility] for sepsis management. Patient after arrival at [facility] was found to have a hypotension with a fall. She was given a normal saline bolus but due to the persistent hypotension she was moved to the intensive care unit and was started on Levophed. She was also given broad-spectrum antibioticsfor sepsis. Patient was also found to have a non-ST elevated AZ and cardiology was consulted. She had echocardiogram which showed EF 35 to 40% moderate pulmonary hypertension and dilated IVC. Cardiology also recommended a cardiac catheterization. Patient was also found to have a hyponatremia with serum sodium 123 to 124 mmol/L. She was given Bumex to improve her respiratory status. Nephrology is consulted for her hyponatremia management and CARMEN and risk stratification and prophylaxis. Patient underwent cardiac catheterization on 06/15/2024 and was found to have a three-vessel disease. Patient is not a suitable candidate for PCI or CABG. Cardiology recommended medical management. She was intubated in anticipation of the cardiac cath and was successfully extubated on 06/16/2024. Interim history Patient was seen and examined at bedside. She denies any chest pain palpation cough nausea vomit diarrhea and shortness of breath. She has a hyponatremia due to the hypervolemia. Her serum sodium improved with the diuresis. She also have a KARIS due to the CARMEN. Renal function is improving and she is making adequate urine output. Exam Physical Exam Vital Signs: Temp Pulse Resp BP Pulse Ox O2 Del Method O2 Flow Rate 97.8 F 73 14 120/75 91 L Nasal Cannula 2 06/19/24 08:00 06/19/24 08:00 06/19/24 08:00 06/19/24 08:00 06/19/24 08:00 06/19/24 09:00 06/19/24 09:00 FiO2 30 06/16/24 14:00 Narrative: General: Appears comfortable and not in distress Heart: S1-S2, no rub Lung: Bilateral air entry, no wheezing or crackles Abdomen: Soft, positive bowel sounds Extremities: No edema, no cyanosis Head: Atraumatic, normocephalic Ear: No gross hearing Deficit or external ear redness Eyes: No pallor or redness Neck: No JVD or visible mass Skin: No rashes , warm to touch ANTISQUEAK FILLER: Awake,Alert, following simple command Musculoskeletal: No swelling or limitation of movement of the large joints Psychiatric: Cooperative, normal mood and affect Objective Intake and Output I&O: Intake & Output 06/16/24 06/17/24 06/18/24 06/19/24 23:59 23:59 23:59 23:59 Intake Total 380 / 380 1480 / 1480 795 / 795 0 / 0 Output Total 1725 / 1725 525 / 525 1525 / 1525 650 / 650 Balance -1345 / -1345 955 / 955 -730 / -730 -650 / -650 Weight 82 kg 81.5 kg 81.5 kg 82.3 kg Meds and Allergies Meds: Active Medications Acetaminophen (Acetaminophen 325 Mg Tablet) 650 mg PO Q6HR PRN PRN Reason: Pain Scale 1 - 3 or fever Stop: 06/12/25 00:33 Last Admin: 06/18/24 20:40 Dose: 650 mg Aspirin (Aspirin 81 Mg Tab.Chew) 81 mg PO DAILY [facility] Stop: 06/12/25 09:59 Last Admin: 06/19/24 09:18 Dose: 81 mg Atorvastatin Calcium (Atorvastatin 80 Mg Tablet) 80 mg PO QPM ERNESTINA Stop: 06/16/25 20:59 Last Admin: 06/16/24 22:08 Dose: Not Given Benzonatate (Benzonatate 100 Mg Capsule) 200 mg PO TID PRN PRN Reason: Cough Stop: 06/12/25 18:16 Last Admin: 06/13/24 17:54 Dose: 200 mg Clopidogrel Bisulfate (Clopidogrel Bisulfate 75 Mg Tablet) 75 mg PO DAILY [facility] Stop: 06/14/25 08:59 Last Admin: 06/19/24 09:18 Dose: 75 mg Dextrose (Dextrose 50% In Water 25 Gm/50 Ml Syringe) 0 gm IV-PUSH PRN PRN PRN Reason: Hypoglycemia Stop: 06/12/25 00:39 Dorzolamide HCl (Dorzolamide 2% Op Soln 200 Drops/10 Ml Bottle) 1 drops EYE-BOTH DAILY [facility] Stop: 06/12/25 08:59 Last Admin: 06/19/24 09:18 Dose: 1 drops Glucose (Dextrose 40% Gel 15 Gm Tube) 0 gm PO PRN PRN PRN Reason: Hypoglycemia Stop: 06/12/25 00:39 Hydralazine HCl (Hydralazine 50 Mg Tablet) 50 mg PO BID [facility] Stop: 06/17/25 20:59 Last Admin: 06/19/24 09:18 Dose: 50 mg Magnesium Sulfate (Magnesium Sulf 2gm-*Swfi*) 2 gm in 50 mls @ 25 mls/hr IV DAILY PRN PRN Reason: Magnesium Level < 1.5 Stop: 06/12/25 00:33 Last Infusion: 06/13/24 19:00 Dose: Infused Sodium Chloride (0.9% Sodium Chloride 500 Ml) 500 mls @ 0 mls/hr IV .Q0M [facility] Stop: 06/12/25 12:59 Last Admin: 06/14/24 09:39 Dose: 10 mls/hr Insulin Aspart (Insulin Aspart 300 Units/3 Ml) 0 units SUBCUT ACHS [facility]; Protocol Stop: 06/17/25 21:59 Last Admin: 06/19/24 11:49 Dose: 5 units Insulin Glargine (Insulin Glargine 300 Units/3 Ml Insuln.Pen) 15 units SUBCUT DAILY [facility] Stop: 06/19/25 08:59 Last Admin: 06/19/24 09:19 Dose: 15 units Isosorbide Mononitrate (Isosorbide Mononitrate 24hr Er 60 Mg Tab.Er.24h) 60 mg PO DAILY.6A [facility] Stop: 06/18/25 05:59 Last Admin: 06/19/24 06:22 Dose: 60 mg Melatonin (Melatonin 5 Mg Tablet) 5 mg PO QHS [facility] Stop: 06/13/25 21:59 Last Admin: 06/18/24 22:15 Dose: Not Given Metoprolol Tartrate (Metoprolol Tartrate 25 Mg Tablet) 25 mg PO BID [facility] Stop: 06/13/25 09:34 Last Admin: 06/19/24 09:18 Dose: 25 mg Nitroglycerin (Nitroglycerin 0.4 Mg Tab.Subl) 0.4 mg SUBLINGUAL Q5M PRN PRN Reason: Chest Pain Stop: 06/15/25 13:20 Ondansetron HCl (Ondansetron 4 Mg/2 Ml Vial) 4 mg IV-PUSH Q8H PRN PRN Reason: Nausea And Vomiting Stop: 06/12/25 00:33 Last Admin: 06/18/24 11:26 Dose: 4 mg Ondansetron HCl (Ondansetron 4 Mg/2 Ml Vial) 4 mg IV-PUSH Q6H PRN PRN Reason: Nausea And Vomiting Stop: 06/15/25 13:20 Potassium Chloride (Potassium Chloride Er 20 Meq Tab.Er.Prt) 20 meq PO DAILY PRN PRN Reason: Hypokalemia Stop: 06/12/25 00:33 Last Admin: 06/13/24 06:43 Dose: 20 meq Potassium Chloride (Potassium Chloride Er 20 Meq Tab.Er.Prt) 40 meq PO DAILY PRN PRN Reason: Hypokalemia Stop: 06/12/25 00:33 Sodium Chloride (Sodium Chloride 0.9 % 10 Ml Syringe) 0 ml IV-PUSH PRN PRN PRN Reason: Flush Stop: 06/13/25 10:28 Last Admin: 06/18/24 11:26 Dose: 10 ml Sodium Chloride (Sodium Chloride 0.9 % 10 Ml Syringe) 0 ml IV-PUSH PRN PRN PRN Reason: Flush Stop: 06/14/25 15:14 Spironolactone (Spironolactone 25 Mg Tablet) 25 mg PO DAILY [facility] Stop: 06/16/25 08:59 Last Admin: 06/19/24 09:18 Dose: 25 mg Timolol Maleate (Timolol Mal 0.5% Op Soln 100 Drops/5 Ml Bottle) 1 drops EYE- BOTH DAILY [facility] Stop: 06/12/25 08:59 Last Admin: 06/19/24 09:18 Dose: 1 drops Warfarin Sodium (Warfarin - Pharmacy Dosing) 1 each MISCELLANE PRN PRN PRN Reason: esa.Pharmacy Note Stop: 06/16/25 18:33 Allergies flecainide Allergy (Unknown, Verified 05/17/24 08:07) Hives Results - Nephrology Labs 06/19/24 04:18 06/19/24 04:18 Labs: 06/19/24 04:18 BUN 52 H Creatinine 1.39 H D Albumin 3.6 Radiology Impressions Impressions - last 24 hours: Any impression(s) listed above is documentation that was entered by the reading physician into a diagnostic report(s) for Lyric Juarez. I have reviewed the report(s) and am incorporating any findings in the treatment plan of this patient where applicable. A&P - Nephrology Assessment/Plan (1) Acute kidney injury superimposed on CKD: Assessment/Problem Details: She likely has an KARIS due to the CARMEN. Her renal function is improving and she is making adequate urine output. (2) Hyponatremia: Assessment/Problem Details: She had hyponatremia due to the hypervolemia. Her serum sodium improved with diuresis. (3) CKD stage 3a, GFR 45-59 ml/min: Assessment/Problem Details: She has a CKD due to the DM and HTN with baseline serum creatinine around 1.1 mg/dL. Her renal function initially was worse due to the hypotension but improved with optimization of her hemodynamics. (4) Hypokalemia: Assessment/Problem Details: She had hypokalemia due to the diuretic induced renal potassium wasting. Her potassium is back to normal with oral and IV replacement. (5) Non-ST elevation (NSTEMI) myocardial infarction: Assessment/Problem Details: Patient also diagnosed to have a AZ. She was found to have a three-vessel disease. Medical management was recommended by cardiology. (6) Sepsis: Assessment/Problem Details: Patient presented with a sepsis and initially required vasopressors. She has finished a course of antibiotics. (7) COVID-19: Assessment/Problem Details: Patient has COVID-19 infection. She is currently on steroids. Pulmonary has been following the patient. (8) Atrial fibrillation: Assessment/Problem Details: Patient has atrial fibrillation. Currently on metoprolol. Plan * On renal function is improving and she is making adequate urine output. Will continue to monitor without diuretics or IV fluid. * Continue current dose of the spironolactone. * Continue management of CAD and A-fib as per cardiology. * Check renal function daily and monitor serum sodium closely * Monitor input output Daily and daily weight. * Documented By: Elvis Philip MD 06/19/241210 Signed By: 06/19/24 1215 [facility]02-08-2025 Progress note Author Jaron Hicks [facility] Note Date/Time June 18, 2024 6 :30pm [facility] [address] [place] [address] Hospitalist Progress Note Signed Patient: Lyric Juarez MR#: [id number] : 1945 Acct:[id number] Age/Sex: 78 / F Adm Date: 5 Loc: Room: [address] [place] [address] Type: ADM IN Attending Dr: Jaron Hicks MD Copies to: ~ Date of Service: 06/18/2024 Subjective Subjective Narrative: Assessment And Plan 78F with history of atrial fibrillation, HTN, HLD, DM, CKD, Afib, and URSULA who presented to [place] ED presented after dizziness associated with a fall and was transferred for possible UTI /sepsis Rule out Septic shock - resolved lactic acidosis - resolved rule out bacterial PNA the patient is afebrile there is no significant leukocytosis . Pulmonary was consulted She was started on Zosyn/vancomycin empirically and required norepinephrine dripdespite appropriate IV fluids CXR shows left lower lobe airspace disease and small left pleural effusion. Influenza A and B Antigen [facility] negative Blood Cx at [place] [facility] 06/11 no growth at 36-48h UA [place] [facility] with WBC < 10 blood culture 06/12 negative so far Lactic acidosis could be related to metformin use; her shock could be more cardiogenic her Abx was deescalated to ceftriaxone she is to finish course of Abx Covid19 infection ABG shows no hypercapnia SARS-CoV-2 Ag positive at [facility] she received supportive treatment Hypoxia - improving she has required up to 3L via nasal cannula. Hypoxia could be related to HF exacerbation and/or Covid19 infection and/or respiratory infection ventilator dependence she was intubated since she can't lay flat to to the [facility]. she was extubated 05/16 Afib RVR - resolved She Presented with A-fib with rapid ventricular rate to [place] ED warfarin restarted. pharmacy to manage. Lovenox will be discontinued Hyponatremia Na improved Na as low as 123; Urine Osmolality 583; Urine Na 18 nephrology recommendation appreciated KARIS Cr 1.4 on admission - Cr is up to 2.1 likely KARIS due to the CARMEN nephrology on consult NSTEMI ICM Possible Acute HFrEF Troponin is > 10K Echo shows EF 40%; Takotsubo Syndrome, Mild AR, RVSP 40-50mmHg she was started on heparin gtt she was evaluated by Cardiology. she underwent LHC shows Severe three-vessel coronary artery disease . she found to be not a candidate for PCI or coronary bypass surgery she is to continue Dual antiplatelet therapy, Statin , vasodilators (hydralazineand nitrates) . WADE inhibitors/ARB's/ARNI to be Avoided Due to hyponatremia ischemic hepatitis - improving AST/ALT reached up more than 1000. TB wnl hepatitis C and b testing negative this is Likely due to shock that cause ischemic hepatitis Keep Holding on statin CMP in am she was evaluated by GI coagulopathy INR up to 5.1; she was given Vit K and FFP to reverse INR for cardiac catheterization Hypomagnesemia Mg 1.1 on admission . it was Replaced DM blood sugars were reviewed A1c 7.6 back in April sliding scale insulin and accuchecks add small dose of daily Lantus hold oral antidiabetic medication/metformin. Fall CT head/brain wo con ([place] [facility]) shows no acute finding CT cervical spine wo con ([facility]) shows No acute cervical spinal fracture CXR ([facility]) no acute finding LINTERVAL HPI: As Above, Pt resting in bed. still weak all over worked with PT/OT today Chronic diseases: Unless mentioned Above, Essential home medications have been continued. DVT Px: Addressed Disposition: To be determined - move out ICU if bed available Plan of care Discussed with: the medical team, the family at bedside L Exam Physical Exam Vital Signs: Temp Pulse Resp BP Pulse Ox O2 Del Method O2 Flow Rate 36.1 C L 81 20 130/82 97 Nasal Cannula 2 06/18/24 12:00 06/18/24 12:00 06/18/24 12:00 06/18/24 12:00 06/18/24 12:00 06/18/24 16:35 06/18/24 16:35 FiO2 30 06/16/24 14:00 Narrative: GEN: NAD, LUNGS: diminished breathing sounds CV: nl S1 S2; no M/R/G ABD: Soft, ND, NT, + BS, EXT: No peripheral edema, No calf muscle tenderness NEURO: generalized weakness move all her extremities Objective Lab Results 06/18/24 04:35 06/18/24 04:35 Meds Allergies and Active Meds Allergies flecainide Allergy (Unknown, Verified 05/17/24 08:07) Hives Active Meds: Active Medications Generic Name Dose Route Start Last Admin Trade Name Clint PRN Reason Stop Dose Admin Acetaminophen 650 mg 06/12/24 00:34 06/17/24 21:11 Acetaminophen 325 Mg Tablet PO 06/12/25 00:33 650 mg Q6HR PRN Administration Pain Scale 1 - 3 or fever Aspirin 81 mg 06/12/24 10:00 06/18/24 09:15 Aspirin 81 Mg Tab.Chew PO 06/12/25 09:59 81 mg DAILY ER[facility]ST[facility] Administration Atorvastatin Calcium 80 mg 06/16/24 21:00 06/16/24 22:08 Atorvastatin 80 Mg Tablet PO 06/16/25 20:59 Not Given QPM ERNESTINA Benzonatate 200 mg 06/12/24 18:17 06/13/24 17:54 Benzonatate 100 Mg Capsule PO 06/12/25 18:16 200 mg TID PRN Administration Cough Clopidogrel Bisulfate 75 mg 06/14/24 09:00 06/18/24 09:15 Clopidogrel Bisulfate 75 Mg Tablet PO 06/14/25 08:59 75 mg DAILY ERNESTINA Administration Dextrose 0 gm 06/12/24 00:40 Dextrose 50% In Water 25 Gm/50 Ml Syringe IV-PUSH 06/12/25 00:39 PRN PRN Hypoglycemia Dorzolamide HCl 1 drops 06/12/24 09:00 06/18/24 09:16 Dorzolamide 2% Op Soln 200 Drops/10 Ml Bottle EYE-BOTH 06/12/25 08:59 1 drops DAILY [facility] Administration Glucose 0 gm 06/12/24 00:40 Dextrose 40% Gel 15 Gm Tube PO 06/12/25 00:39 PRN PRN Hypoglycemia Hydralazine HCl 50 mg 06/17/24 21:00 06/18/24 09:15 Hydralazine 50 Mg Tablet PO 06/17/25 20:59 50 mg BID ERNESTINA Administration Magnesium Sulfate 2 gm in 50 mls @ 25 mls/hr 06/12/24 00:34 06/13/24 19:00 Magnesium Sulf 2gm-*Swfi* IV 06/12/25 00:33 Infused DAILY PRN Infusion Magnesium Level < 1.5 Sodium Chloride 500 mls @ 0 mls/hr 06/12/24 13:00 06/14/24 09:39 0.9% Sodium Chloride 500 Ml IV 06/12/25 12:59 10 mls/hr .Q0M ERNESTINA Administration Per Protocol Ceftriaxone Sodium 1 gm in 50 mls @ 100 mls/hr 06/16/24 14:00 06/18/24 13:58 Rocephin IV 06/18/24 23:59 100 mls/hr Q24H ERNESTINA Administration Insulin Aspart 0 units 06/17/24 22:00 06/18/24 11:30 Insulin Aspart 300 Units/3 Ml SUBCUT 06/17/25 21:59 5 units ACHS ERNESTINA Administration Protocol Isosorbide Mononitrate 60 mg 06/18/24 06:00 06/18/24 06:24 Isosorbide Mononitrate 24hr Er 60 Mg Tab.Er.24h PO 06/18/25 05:59 60 mg DAILY.6A ERNESTINA Administration Melatonin 5 mg 06/13/24 22:00 06/17/24 21:11 Melatonin 5 Mg Tablet PO 06/13/25 21:59 5 mg QHS ERNESTINA Administration Metoprolol Tartrate 25 mg 06/13/24 09:35 06/18/24 09:15 Metoprolol Tartrate 25 Mg Tablet PO 06/13/25 09:34 25 mg BID ERNESTINA Administration Nitroglycerin 0.4 mg 06/15/24 13:21 Nitroglycerin 0.4 Mg Tab.Subl SUBLINGUAL 06/15/25 13:20 Q5M PRN Chest Pain Ondansetron HCl 4 mg 06/12/24 00:34 06/18/24 11:26 Ondansetron 4 Mg/2 Ml Vial IV-PUSH 06/12/25 00:33 4 mg Q8H PRN Administration Nausea And Vomiting Ondansetron HCl 4 mg 06/15/24 13:21 Ondansetron 4 Mg/2 Ml Vial IV-PUSH 06/15/25 13:20 Q6H PRN Nausea And Vomiting Potassium Chloride 20 meq 06/12/24 00:34 06/13/24 06:43 Potassium Chloride Er 20 Meq Tab.Er.Prt PO 06/12/25 00:33 20 meq DAILY PRN Administration Hypokalemia Potassium Chloride 40 meq 06/12/24 00:34 Potassium Chloride Er 20 Meq Tab.Er.Prt PO 06/12/25 00:33 DAILY PRN Hypokalemia Sodium Chloride 0 ml 06/13/24 10:29 06/18/24 11:26 Sodium Chloride 0.9 % 10 Ml Syringe IV-PUSH 06/13/25 10:28 10 ml PRN PRN Administration Flush Sodium Chloride 0 ml 06/14/24 15:15 Sodium Chloride 0.9 % 10 Ml Syringe IV-PUSH 06/14/25 15:14 PRN PRN Flush Spironolactone 25 mg 06/16/24 09:00 06/18/24 09:15 Spironolactone 25 Mg Tablet PO 06/16/25 08:59 25 mg DAILY [facility] Administration Timolol Maleate 1 drops 06/12/24 09:00 06/18/24 09:16 Timolol Mal 0.5% Op Soln 100 Drops/5 Ml Bottle EYE-BOTH 06/12/25 08:59 1 drops DAILY [facility] Administration Warfarin Sodium 1 each 06/16/24 18:34 Warfarin - Pharmacy Dosing MISCELLANE 06/16/25 18:33 PRN PRN zz.[email or web address] Note Warfarin Sodium 0.5 mg 06/18/24 17:00 Warfarin 1 Mg Tablet PO 06/18/24 17:01 ONCE ONE A&P - Hospitalist Assessment/Plan (1) COVID-19: Plan Documented By: Jaron Hicks MD 06/18/24 1644 Signed By: <Electronically signed by Jaron Hicks MD> 06/18/24 1830 [facility] Work Phone: [phone] 447-661802-08-2025 [place] [address] Hospitalist Progress Note Signed Patient: Lyric Juarez MR#: [id number] : 1945 Acct:[id number] Age/Sex: 78 / F Adm Date: 5 Loc: Room: [address] [place] [address] Type: ADM IN Attending Dr: Jaron Hicks MD Copies to: ~ Date of Service: 06/18/2024 Subjective Subjective Narrative: Assessment And Plan 78F with history of atrial fibrillation, HTN, HLD, DM, CKD, Afib, and URSULA who presented to [facility] presented after dizziness associated with a fall and was transferred for possible UTI /sepsis Rule out Septic shock - resolved lactic acidosis - resolved rule out bacterial PNA the patient is afebrile there is no significant leukocytosis . Pulmonary was consulted She was started on Zosyn/vancomycin empirically and required norepinephrine dripdespite appropriateIV fluids CXR shows left lower lobe airspace disease and small left pleural effusion. Influenza A and B Antigen [facility] negative Blood Cx at [facility] 06/11 no growth at 36-48h UA [place] [facility] with WBC < 10 blood culture 06/12 negative so far Lactic acidosis could be related to metformin use; her shock could be more cardiogenic her Abx was deescalated to ceftriaxone she is to finish course of Abx Covid19 infection ABG shows no hypercapnia SARS-CoV-2 Ag positive at [facility] she received supportive treatment Hypoxia - improving she has required up to 3L via nasal cannula. Hypoxia could be related to HF exacerbation and/or Covid19 infection and/or respiratory infection ventilator dependence she was intubated since she can't lay flat to to the [facility]. she was extubated 05/16 Afib RVR - resolved She Presented with A-fib with rapid ventricular rate to [facility] warfarin restarted. pharmacy to manage. Lovenox will be discontinued Hyponatremia Na improved Na as low as 123; Urine Osmolality 583; Urine Na 18 nephrology recommendation appreciated KARIS Cr 1.4 on admission - Cr is up to 2.1 likely KARIS due to the CARMEN nephrology on consult NSTEMI ICM Possible Acute HFrEF Troponin is > 10K Echo shows EF 40%; Takotsubo Syndrome, Mild AR, RVSP 40-50mmHg she was started on heparin gtt she was evaluated by Cardiology. she underwent C shows Severe three-vessel coronary artery disease . she found to be not a candidate for PCI or coronary bypass surgery she is to continue Dual antiplatelet therapy, Statin , vasodilators (hydralazineand nitrates) . ACEinhibitors/ARB's/ARNI to be Avoided Due to hyponatremia ischemic hepatitis - improving AST/ALT reached up more than 1000. TB wnl hepatitis C and b testing negative this is Likely due to shock that cause ischemic hepatitis Keep Holding on statin CMP in am she was evaluated by GI coagulopathy INR up to 5.1; she was given Vit K and FFP to reverse INR for cardiac catheterization Hypomagnesemia Mg 1.1 on admission . it was Replaced DM blood sugars were reviewed A1c 7.6 back in April sliding scale insulin and accuchecks add small dose of daily Lantus hold oral antidiabetic medication/metformin. Fall CT head/brain wo con ([place] [facility]) shows no acute finding CT cervical spine wo con ([facility]) shows No acute cervical spinal fracture CXR ([facility]) no acute finding LINTERVAL HPI: As Above, Pt resting in bed. still weak all over worked with PT/OT today Chronic diseases: Unless mentioned Above, Essential home medications have been continued. DVT Px: Addressed Disposition: To be determined - move out ICU if bed available Plan of care Discussed with: the medical team, the family at bedside L Exam Physical Exam Vital Signs: Temp Pulse Resp BP Pulse Ox O2 Del Method O2 Flow Rate 36.1 C L 81 20 130/82 97 Nasal Cannula 2 06/18/24 12:00 06/18/24 12:00 06/18/24 12:00 06/18/24 12:00 06/18/24 12:00 06/18/24 16:35 06/18/24 16:35 FiO2 30 06/16/24 14:00 Narrative: GEN: NAD, LUNGS: diminished breathing sounds CV: nl S1 S2; no M/R/G ABD: Soft, ND, NT, + BS, EXT: No peripheral edema, No calf muscle tenderness NEURO: generalized weakness move all her extremities Objective Lab Results 06/18/24 04:35 06/18/24 04:35 Meds Allergies and Active Meds Allergies flecainide Allergy (Unknown, Verified 05/17/24 08:07) Hives Active Meds: Active Medications Generic Name Dose Route Start Last Admin Trade Name Freq PRN Reason Stop Dose Admin Acetaminophen 650 mg 06/12/24 00:34 06/17/24 21:11 Acetaminophen 325 Mg Tablet PO 06/12/25 00:33 650 mg Q6HR PRN Administration Pain Scale 1 - 3 or fever Aspirin 81 mg 06/12/24 10:00 06/18/24 09:15 Aspirin 81 Mg Tab.Chew PO 06/12/25 09:59 81 mg DAILY ERNESTINA Administration Atorvastatin Calcium 80 mg 06/16/24 21:00 06/16/24 22:08 Atorvastatin 80 Mg Tablet PO 06/16/25 20:59 Not Given QPM ERNESTINA Benzonatate 200 mg 06/12/24 18:17 06/13/24 17:54 Benzonatate 100 Mg Capsule PO 06/12/25 18:16 200 mg TID PRN Administration Cough Clopidogrel Bisulfate 75 mg 06/14/24 09:00 06/18/24 09:15 Clopidogrel Bisulfate 75 Mg Tablet PO 06/14/25 08:59 75 mg DAILY ERNESTINA Administration Dextrose 0 gm 06/12/24 00:40 Dextrose 50% In Water 25 Gm/50 Ml Syringe IV-PUSH 06/12/25 00:39 PRN PRN Hypoglycemia Dorzolamide HCl 1 drops 06/12/24 09:00 06/18/24 09:16 Dorzolamide 2% Op Soln 200 Drops/10 Ml Bottle EYE-BOTH 06/12/25 08:59 1 drops DAILY ERNESTINA Administration Glucose 0 gm 06/12/24 00:40 Dextrose 40% Gel 15 Gm Tube PO 06/12/25 00:39 PRN PRN Hypoglycemia Hydralazine HCl 50 mg 06/17/24 21:00 06/18/24 09:15 Hydralazine 50 Mg Tablet PO 06/17/25 20:59 50 mg BID ERNESTINA Administration Magnesium Sulfate 2 gm in 50 mls @ 25 mls/hr 06/12/24 00:34 06/13/24 19:00 Magnesium Sulf 2gm-*Swfi* IV 06/12/25 00:33 Infused DAILY PRN Infusion Magnesium Level < 1.5 Sodium Chloride 500 mls @ 0 mls/hr 06/12/24 13:00 06/14/24 09:39 0.9% Sodium Chloride 500 Ml IV 06/12/25 12:59 10 mls/hr .Q0M ERNESTINA Administration Per Protocol Ceftriaxone Sodium 1 gm in 50 mls @ 100 mls/hr 06/16/24 14:00 06/18/24 13:58 Rocephin IV 06/18/24 23:59 100 mls/hr Q24H ERNESTINA Administration Insulin Aspart 0 units 06/17/24 22:00 06/18/24 11:30 Insulin Aspart 300 Units/3 Ml SUBCUT 06/17/25 21:59 5 units ACHS ERNESTINA Administration Protocol Isosorbide Mononitrate 60 mg 06/18/24 06:00 06/18/24 06:24 Isosorbide Mononitrate 24hr Er 60 Mg Tab.Er.24h PO 06/18/25 05:59 60 mg DAILY.6A ERNESTINA Administration Melatonin 5 mg 06/13/24 22:00 06/17/24 21:11 Melatonin 5 Mg Tablet PO 06/13/25 21:59 5 mg QHS ERNESTINA Administration Metoprolol Tartrate 25 mg 06/13/24 09:35 06/18/24 09:15 Metoprolol Tartrate 25 Mg Tablet PO 06/13/25 09:34 25 mg BID ERNESTINA Administration Nitroglycerin 0.4 mg 06/15/24 13:21 Nitroglycerin 0.4 Mg Tab.Subl SUBLINGUAL 06/15/25 13:20 Q5M PRN Chest Pain Ondansetron HCl 4 mg 06/12/24 00:34 06/18/24 11:26 Ondansetron 4 Mg/2 Ml Vial IV-PUSH 06/12/25 00:33 4 mg Q8H PRN Administration Nausea And Vomiting Ondansetron HCl 4 mg 06/15/24 13:21 Ondansetron 4 Mg/2 Ml Vial IV-PUSH 06/15/25 13:20 Q6H PRN Nausea And Vomiting Potassium Chloride 20 meq 06/12/24 00:34 06/13/24 06:43 Potassium Chloride Er 20 Meq Tab.Er.Prt PO 06/12/25 00:33 20 meq DAILY PRN Administration Hypokalemia Potassium Chloride 40 meq 06/12/24 00:34 Potassium Chloride Er 20 Meq Tab.Er.Prt PO 06/12/25 00:33 DAILY PRN Hypokalemia Sodium Chloride 0 ml 06/13/24 10:29 06/18/24 11:26 Sodium Chloride 0.9 % 10 Ml Syringe IV-PUSH 06/13/25 10:28 10 ml PRN PRN Administration Flush Sodium Chloride 0 ml 06/14/24 15:15 Sodium Chloride 0.9 % 10 Ml Syringe IV-PUSH 06/14/25 15:14 PRN PRN Flush Spironolactone 25 mg 06/16/24 09:00 06/18/24 09:15 Spironolactone 25 Mg Tablet PO 06/16/25 08:59 25 mg DAILY ERNESTINA Administration Timolol Maleate 1 drops 06/12/24 09:00 06/18/24 09:16 Timolol Mal 0.5% Op Soln 100 Drops/5 Ml Bottle EYE-BOTH 06/12/25 08:59 1 drops DAILY ERNESTINA Administration Warfarin Sodium 1 each 06/16/24 18:34 Warfarin - Pharmacy Dosing MISCELLANE 06/16/25 18:33 PRN PRN [email or web address] Note Warfarin Sodium 0.5 mg 06/18/24 17:00 Warfarin 1 Mg Tablet PO 06/18/24 17:01 ONCE ONE A&P - Hospitalist Assessment/Plan (1) COVID-19: Plan Documented By: Jaron Hicks MD 06/18/24 1644 Signed By: 06/18/24 1830 [facility]02-08-2025 Progress note Author Enrico Millan [facility] Note Date/Time June 18, 2024 1 :59pm [facility] [address] [place] [address] Cardiology Progress Note Signed Patient: Lyric Juarez MR#: [id number] : 1945 Acct:[id number] Age/Sex: 78 / F Adm Date: 5 Loc: Room: [address] [place] [address] Type: ADM IN Attending Dr: Jaron Hicks MD Copies to: ~ Date of Service: 06/18/2024 Subjective Principal diagnosis: Congestive heart failure/non-ST elevation myocardial infarction Interval history: Patient feels better. Heart rate reasonably controlled Exam Physical Exam Vital Signs: Temp Pulse Resp BP Pulse Ox O2 Del Method O2 Flow Rate 96.9 F L 82 19 142/88 H 98 Nasal Cannula 2 06/18/24 04:00 06/18/24 04:00 06/18/24 04:00 06/18/24 04:00 06/18/24 04:00 06/18/24 08:00 06/18/24 08:00 FiO2 30 06/16/24 14:00 Const General: cooperative Neck Neck: supple Lymphatic: no lymphadenopathy noted Resp Effort & Inspection: normal respiratory effort Auscultation: clear to auscultation bilaterally Cardio Palpation: normal PMI Rhythm: abnormal rhythm irregularly irregular Heart Sounds: S1 normal and S2 normal Skin General: dry skin Extrem General: full ROM and no clubbing, cyanosis or edema Objective Labs 06/18/24 04:35 06/18/24 04:35 Labs: Laboratory Results - last 24 hr 06/17/24 06/17/24 06/17/24 04:39 04:39 04:39 Corrected WBC Uncorrected WBC Count RBC Hgb Hct MCV MCH MCHC RDW Plt Count MPV Neut % (Auto) Lymph % (Auto) [place] % (Auto) Eos % (Auto) Baso % (Auto) Nucleat RBC Rel Count Neut # (Auto) Lymph # (Auto) [place] # (Auto) Eos # (Auto) Baso # (Auto) Platelet Estimate Plt Morphology Comment RBC Morphology Polychromasia Poikilocytosis Anisocytosis Ovalocytes Crenated Cell Acanthocytes (Spur) PT INR PHA Creatinine Clear Sodium Potassium Chloride Carbon Dioxide Anion Gap BUN Creatinine Est GFR (CKD-EPI) Glucose POC Glucose Calcium Magnesium Total Bilirubin 1.0 Cancelled Direct Bilirubin 0.50 H Cancelled Indirect Bilirubin 0.5 AST ALT Alkaline Phosphatase Total Protein Albumin Globulin Albumin/Globulin Ratio Slides for Path Review 06/17/24 06/17/24 06/17/24 04:39 04:39 04:39 Corrected WBC Uncorrected WBC Count RBC Hgb Hct MCV MCH MCHC RDW Plt Count MPV Neut % (Auto) Lymph % (Auto) [place] % (Auto) Eos % (Auto) Baso % (Auto) Nucleat RBC Rel Count Neut # (Auto) Lymph # (Auto) [place] # (Auto) Eos # (Auto) Baso # (Auto) Platelet Estimate Plt Morphology Comment RBC Morphology Polychromasia Poikilocytosis Anisocytosis Ovalocytes Crenated Cell Acanthocytes (Spur) PT INR PHA Creatinine Clear Sodium Potassium Chloride Carbon Dioxide Anion Gap BUN Creatinine Est GFR (CKD-EPI) Glucose POC Glucose Calcium Magnesium Total Bilirubin Direct Bilirubin Indirect Bilirubin Cancelled AST 381 H Cancelled ALT 1067 H Cancelled Alkaline Phosphatase 202 H Total Protein Albumin Globulin Albumin/Globulin Ratio Slides for Path Review 06/17/24 06/17/24 06/17/24 04:39 04:39 04:39 Corrected WBC Uncorrected WBC Count RBC Hgb Hct MCV MCH MCHC RDW Plt Count MPV Neut % (Auto) Lymph % (Auto) [place] % (Auto) Eos % (Auto) Baso % (Auto) Nucleat RBC Rel Count Neut # (Auto) Lymph # (Auto) [place] # (Auto) Eos # (Auto) Baso # (Auto) Platelet Estimate Plt Morphology Comment RBC Morphology Polychromasia Poikilocytosis Anisocytosis Ovalocytes Crenated Cell Acanthocytes (Spur) PT INR PHA Creatinine Clear Sodium Potassium Chloride Carbon Dioxide Anion Gap BUN Creatinine Est GFR (CKD-EPI) Glucose POC Glucose Calcium Magnesium Total Bilirubin Direct Bilirubin Indirect Bilirubin AST ALT Alkaline Phosphatase Cancelled Total Protein 6.7 Cancelled Albumin 3.8 Cancelled Globulin 2.9 Albumin/Globulin Ratio Slides for Path Review 06/17/24 06/17/24 06/17/24 04:39 04:39 17:13 Corrected WBC Uncorrected WBC Count RBC Hgb Hct MCV MCH MCHC RDW Plt Count MPV Neut % (Auto) Lymph % (Auto) [place] % (Auto) Eos % (Auto) Baso % (Auto) Nucleat RBC Rel Count Neut # (Auto) Lymph # (Auto) [place] # (Auto) Eos # (Auto) Baso # (Auto) Platelet Estimate Plt Morphology Comment RBC Morphology Polychromasia Poikilocytosis Anisocytosis Ovalocytes Crenated Cell Acanthocytes (Spur) PT INR PHA Creatinine Clear Sodium Potassium Chloride Carbon Dioxide Anion Gap BUN Creatinine Est GFR (CKD-EPI) Glucose POC Glucose 248 Calcium Magnesium Total Bilirubin Direct Bilirubin Indirect Bilirubin AST ALT Alkaline Phosphatase Total Protein Albumin Globulin Cancelled Albumin/Globulin Ratio 1.3 Cancelled Slides for Path Review 06/17/24 06/18/24 06/18/24 21:10 04:35 07:14 Corrected WBC 16.8 H Uncorrected WBC Count 18.1 H RBC 3.81 Hgb 11.8 Hct 34.7 MCV 90.8 MCH 31.0 MCHC 34.2 RDW 14.3 Plt Count 323 MPV 8.9 Neut % (Auto) 77.9 Lymph % (Auto) 7.1 [place] % (Auto) 14.5 Eos % (Auto) 0.2 Baso % (Auto) 0.3 Nucleat RBC Rel Count 4.5 H Neut # (Auto) 13.1 H Lymph # (Auto) 1.2 [place] # (Auto) 2.4 H Eos # (Auto) 0.0 Baso # (Auto) 0.1 Platelet Estimate Normal Plt Morphology Comment Normal RBC Morphology N/A Polychromasia Slight Poikilocytosis Moderate Anisocytosis Slight Ovalocytes Moderate Crenated Cell Slight Acanthocytes (Spur) Moderate PT 25.2 H INR 2.3 PHA Creatinine Clear 24.82 Sodium 131 L Potassium 3.8 Chloride 95 L Carbon Dioxide 26.3 Anion Gap 13.5 BUN 65 H Creatinine 1.97 H Est GFR (CKD-EPI) 25.559 Glucose 199 H POC Glucose 360 230 Calcium 8.8 Magnesium 2.4 Total Bilirubin 0.8 Direct Bilirubin Indirect Bilirubin AST 172 H ALT 752 H Alkaline Phosphatase 227 H Total Protein 6.4 Albumin 3.6 Globulin 2.8 Albumin/Globulin Ratio 1.3 Slides for Path Review N/A 06/18/24 11:30 Corrected WBC Uncorrected WBC Count RBC Hgb Hct MCV MCH MCHC RDW Plt Count MPV Neut % (Auto) Lymph % (Auto) [place] % (Auto) Eos % (Auto) Baso % (Auto) Nucleat RBC Rel Count Neut # (Auto) Lymph # (Auto) [place] # (Auto) Eos # (Auto) Baso # (Auto) Platelet Estimate Plt Morphology Comment RBC Morphology Polychromasia Poikilocytosis Anisocytosis Ovalocytes Crenated Cell Acanthocytes (Spur) PT INR PHA Creatinine Clear Sodium Potassium Chloride Carbon Dioxide Anion Gap BUN Creatinine Est GFR (CKD-EPI) Glucose POC Glucose 253 Calcium Magnesium Total Bilirubin Direct Bilirubin Indirect Bilirubin AST ALT Alkaline Phosphatase Total Protein Albumin Globulin Albumin/Globulin Ratio Slides for Path Review A&P - Cardiology (1) Permanent atrial fibrillation: Code(s): I48.21 - Permanent atrial fibrillation (2) Left ventricular systolic dysfunction: Assessment/Problem Details: Ejection fraction is down to 25?30% due to severe ischemic cardiomyopathy Plan: Due to hyponatremia will avoid WADE inhibitor, ARB and ARNI, continue beta- blockers and spironolactone, uptitrate hydralazine and nitrates due to hypertension Code(s): I51.89 - Other ill-defined heart diseases (3) Non-ST elevation (NSTEMI) myocardial infarction: Code(s): I21.4 - Non-ST elevation (NSTEMI) myocardial infarction (4) 3-vessel coronary artery disease: Code(s): I25.10 - Atherosclerotic heart disease of [place] coronary artery without angina pectoris (5) Hyponatremia: Code(s): E87.1 - Hypo-osmolality and hyponatremia (6) COVID-19: Code(s): U07.1 - COVID-19 (7) Dyslipidemia: Code(s): E78.5 - Hyperlipidemia, unspecified (8) Elevated liver transaminase level: Code(s): R74.01 - Elevation of levels of liver transaminase levels (9) Acute kidney injury: Code(s): N17.9 - Acute kidney failure, unspecified (10) Essential hypertension: Code(s): I10 - Essential (primary) hypertension Plan 1. Continue supportive measures. Patient hemodynamically stable with slow and gradual improvement 2. Continue heart rate control and long-term anticoagulation strategy. INR is 2.3 3. Continue with conservative management cardiac baxter Documented By: Enrico Millan MD 06/18/24 1356 Signed By: <Electronically signed by MD Enrico Millan> 06/18/24 [facility] Work Phone: [phone] 200-365802-08-2025 [place] [address] Cardiology Progress Note Signed Patient: Lyric Juarez MR#: [id number] : 1945 Acct:[id number] Age/Sex: 78 / F Adm Date: 5 Loc: Room: [address] [place] [address] Type: ADM IN Attending Dr: Jaron Hicks MD Copies to: ~ Date of Service: 06/18/2024 Subjective Principal diagnosis: Congestive heart failure/non-ST elevation myocardial infarction Interval history: Patient feels better. Heart rate reasonably controlled Exam Physical Exam Vital Signs: Temp Pulse Resp BP Pulse Ox O2 Del Method O2 Flow Rate 96.9 F L 82 19 142/88 H 98 Nasal Cannula 2 06/18/24 04:00 06/18/24 04:00 06/18/24 04:00 06/18/24 04:00 06/18/24 04:00 06/18/24 08:00 06/18/24 08:00 FiO2 30 06/16/24 14:00 Const General: cooperative Neck Neck: supple Lymphatic: no lymphadenopathy noted Resp Effort & Inspection: normal respiratory effort Auscultation: clear to auscultation bilaterally Cardio Palpation: normal PMI Rhythm: abnormal rhythm irregularly irregular Heart Sounds: S1 normal and S2 normal Skin General: dry skin Extrem General: full ROM and no clubbing, cyanosis or edema Objective Labs 06/18/24 04:35 06/18/24 04:35 Labs: Laboratory Results - last 24 hr 06/17/24 06/17/24 06/17/24 04:39 04:39 04:39 Corrected WBC Uncorrected WBC Count RBC Hgb Hct MCV MCH MCHC RDW Plt Count MPV Neut % (Auto) Lymph % (Auto) [place] % (Auto) Eos % (Auto) Baso % (Auto) Nucleat RBC Rel Count Neut # (Auto) Lymph # (Auto) [place] # (Auto) Eos # (Auto) Baso # (Auto) Platelet Estimate Plt Morphology Comment RBC Morphology Polychromasia Poikilocytosis Anisocytosis Ovalocytes Crenated Cell Acanthocytes (Spur) PT INR PHA Creatinine Clear Sodium Potassium Chloride Carbon Dioxide Anion Gap BUN Creatinine Est GFR (CKD-EPI) Glucose POC Glucose Calcium Magnesium Total Bilirubin 1.0 Cancelled Direct Bilirubin 0.50 H Cancelled Indirect Bilirubin 0.5 AST ALT Alkaline Phosphatase Total Protein Albumin Globulin Albumin/Globulin Ratio Slides for Path Review 06/17/24 06/17/24 06/17/24 04:39 04:39 04:39 Corrected WBC Uncorrected WBC Count RBC Hgb Hct MCV MCH MCHC RDW Plt Count MPV Neut % (Auto) Lymph % (Auto) [place] % (Auto) Eos % (Auto) Baso % (Auto) Nucleat RBC Rel Count Neut # (Auto) Lymph # (Auto) [place] # (Auto) Eos # (Auto) Baso # (Auto) Platelet Estimate Plt Morphology Comment RBC Morphology Polychromasia Poikilocytosis Anisocytosis Ovalocytes Crenated Cell Acanthocytes (Spur) PT INR PHA Creatinine Clear Sodium Potassium Chloride Carbon Dioxide Anion Gap BUN Creatinine Est GFR (CKD-EPI) Glucose POC Glucose Calcium Magnesium Total Bilirubin Direct Bilirubin Indirect Bilirubin Cancelled AST 381 H Cancelled ALT 1067 H Cancelled Alkaline Phosphatase 202 H Total Protein Albumin Globulin Albumin/Globulin Ratio Slides for Path Review 06/17/24 06/17/24 06/17/24 04:39 04:39 04:39 Corrected WBC Uncorrected WBC Count RBC Hgb Hct MCV MCH MCHC RDW Plt Count MPV Neut % (Auto) Lymph % (Auto) [place] % (Auto) Eos % (Auto) Baso % (Auto) Nucleat RBC Rel Count Neut # (Auto) Lymph # (Auto) [place] # (Auto) Eos # (Auto) Baso # (Auto) Platelet Estimate Plt Morphology Comment RBC Morphology Polychromasia Poikilocytosis Anisocytosis Ovalocytes Crenated Cell Acanthocytes (Spur) PT INR PHA Creatinine Clear Sodium Potassium Chloride Carbon Dioxide Anion Gap BUN Creatinine Est GFR (CKD-EPI) Glucose POC Glucose Calcium Magnesium Total Bilirubin Direct Bilirubin Indirect Bilirubin AST ALT Alkaline Phosphatase Cancelled Total Protein 6.7 Cancelled Albumin 3.8 Cancelled Globulin 2.9 Albumin/Globulin Ratio Slides for Path Review 06/17/24 06/17/24 06/17/24 04:39 04:39 17:13 Corrected WBC Uncorrected WBC Count RBC Hgb Hct MCV MCH MCHC RDW Plt Count MPV Neut % (Auto) Lymph % (Auto) [place] % (Auto) Eos % (Auto) Baso % (Auto) Nucleat RBC Rel Count Neut # (Auto) Lymph # (Auto) [place] # (Auto) Eos # (Auto) Baso # (Auto) Platelet Estimate Plt Morphology Comment RBC Morphology Polychromasia Poikilocytosis Anisocytosis Ovalocytes Crenated Cell Acanthocytes (Spur) PT INR PHA Creatinine Clear Sodium Potassium Chloride Carbon Dioxide Anion Gap BUN Creatinine Est GFR (CKD-EPI) Glucose POC Glucose 248 Calcium Magnesium Total Bilirubin Direct Bilirubin Indirect Bilirubin AST ALT Alkaline Phosphatase Total Protein Albumin Globulin Cancelled Albumin/Globulin Ratio 1.3 Cancelled Slides for Path Review 06/17/24 06/18/24 06/18/24 21:10 04:35 07:14 Corrected WBC 16.8 H Uncorrected WBC Count 18.1 H RBC 3.81 Hgb 11.8 Hct 34.7 MCV 90.8 MCH 31.0 MCHC 34.2 RDW 14.3 Plt Count 323 MPV 8.9 Neut % (Auto) 77.9 Lymph % (Auto) 7.1 [place] % (Auto) 14.5 Eos % (Auto) 0.2 Baso % (Auto) 0.3 Nucleat RBC Rel Count 4.5 H Neut # (Auto) 13.1 H Lymph # (Auto) 1.2 [place] # (Auto) 2.4 H Eos # (Auto) 0.0 Baso # (Auto) 0.1 Platelet Estimate Normal Plt Morphology Comment Normal RBC Morphology N/A Polychromasia Slight Poikilocytosis Moderate Anisocytosis Slight Ovalocytes Moderate Crenated Cell Slight Acanthocytes (Spur) Moderate PT 25.2 H INR 2.3 PHA Creatinine Clear 24.82 Sodium 131 L Potassium 3.8 Chloride 95 L Carbon Dioxide 26.3 Anion Gap 13.5 BUN 65 H Creatinine 1.97 H Est GFR (CKD-EPI) 25.559 Glucose 199 H POC Glucose 360 230 Calcium 8.8 Magnesium 2.4 Total Bilirubin 0.8 Direct Bilirubin Indirect Bilirubin AST 172 H ALT 752 H Alkaline Phosphatase 227 H Total Protein 6.4 Albumin 3.6 Globulin 2.8 Albumin/Globulin Ratio 1.3 Slides for Path Review N/A 06/18/24 11:30 Corrected WBC Uncorrected WBC Count RBC Hgb Hct MCV MCH MCHC RDW Plt Count MPV Neut % (Auto) Lymph % (Auto) [place] % (Auto) Eos % (Auto) Baso % (Auto) Nucleat RBC Rel Count Neut # (Auto) Lymph # (Auto) [place] # (Auto) Eos # (Auto) Baso # (Auto) Platelet Estimate Plt Morphology Comment RBC Morphology Polychromasia Poikilocytosis Anisocytosis Ovalocytes Crenated Cell Acanthocytes (Spur) PT INR PHA Creatinine Clear Sodium Potassium Chloride Carbon Dioxide Anion Gap BUN Creatinine Est GFR (CKD-EPI) Glucose POC Glucose 253 Calcium Magnesium Total Bilirubin Direct Bilirubin Indirect Bilirubin AST ALT Alkaline Phosphatase Total Protein Albumin Globulin Albumin/Globulin Ratio Slides for Path Review A&P - Cardiology (1) Permanent atrial fibrillation: Code(s): I48.21 - Permanent atrial fibrillation (2) Left ventricular systolic dysfunction: Assessment/Problem Details: Ejection fraction is down to 25?30% due to severe ischemic cardiomyopathy Plan: Due to hyponatremia will avoid WADE inhibitor, ARB and ARNI, continue beta- blockers and spironolactone, uptitrate hydralazine and nitrates due to hypertension Code(s): I51.89 - Other ill-defined heart diseases (3) Non-ST elevation (NSTEMI) myocardial infarction: Code(s): I21.4 - Non-ST elevation (NSTEMI) myocardial infarction (4) 3-vessel coronary artery disease: Code(s): I25.10 - Atherosclerotic heart disease of [place] coronary artery without angina pectoris (5) Hyponatremia: Code(s): E87.1 - Hypo-osmolality and hyponatremia (6) COVID-19: Code(s): U07.1 - COVID-19 (7) Dyslipidemia: Code(s): E78.5 - Hyperlipidemia, unspecified (8) Elevated liver transaminase level: Code(s): R74.01 - Elevation of levels of liver transaminase levels (9) Acute kidney injury: Code(s): N17.9 - Acute kidney failure, unspecified (10) Essential hypertension: Code(s): I10 - Essential (primary) hypertension Plan 1. Continue supportive measures. Patient hemodynamically stable with slow and gradual improvement 2. Continue heart rate control and long-term anticoagulation strategy. INR is 2.3 3. Continue with conservative management cardiac baxter Documented By: Enrico Millan MD 06/18/241355 Signed By: 06/18/24 1359 [facility]02-08-2025 Progress note Author Elvis Philip [facility] Note Date/Time June 18, 2024 1 1:54am [facility] [address] [place] [address] Nephrology Progress Note Signed Patient: Lyric Juarez MR#: [id number] : 1945 Acct:[id number] Age/Sex: 78 / F Adm Date: 5 Loc: Room: [address] [place] [address] Type: ADM IN Attending Dr: Jaron Hicks MD Copies to: ~ Date of Service: 06/18/2024 Subjective Subjective Narrative: This is a 78-year-old female with medical history of atrial fibrillation, HTN, DM, CKD, HLD was presented to the [facility] after a fall. On evaluationin emergency room she was found to have a fever with tachycardia. Her EKG showed A- fib with RVR and was given normal saline fluid boluses to improve her heart rate. She was transferred to the [facility] for sepsis management. Patient after arrival at [facility] was found to have a hypotension with a fall. She was given a normal saline bolus but due to the persistent hypotension she was moved to the intensive care unit and was started on Levophed. She was also given broad-spectrum antibioticsfor sepsis. Patient was also found to have a non-ST elevated [place] and cardiology was consulted. She had echocardiogram which showed EF 35 to 40% moderate pulmonary hypertension and dilated IVC. Cardiology also recommended a cardiac catheterization. Patient was also found to have a hyponatremia with serum sodium 123 to 124 mmol/L. She was given Bumex to improve her respiratory status. Nephrology is consulted for her hyponatremia management and CARMEN and risk stratification and prophylaxis. Patient underwent cardiac catheterization on 06/15/2024 and was found to have a three-vessel disease. Patient is not a suitable candidate for PCI or CABG. Cardiology recommended medical management. She was intubated in anticipation of the cardiac cath and was successfully extubated on 06/16/2024. Interim history Patient was seen and examined at bedside. She denies any chest pain palpation cough nausea vomit diarrhea and shortness of breath. She was participating in the physical therapy. Exam Physical Exam Vital Signs: Temp Pulse Resp BP Pulse Ox O2 Del Method O2 Flow Rate 96.9 F L 82 19 142/88 H 98 Nasal Cannula 2 06/18/24 04:00 06/18/24 04:00 06/18/24 04:00 06/18/24 04:00 06/18/24 04:00 06/18/24 08:00 06/18/24 08:00 FiO2 30 06/16/24 14:00 Narrative: General: Appears comfortable and not in distress Heart: S1-S2, no rub Lung: Bilateral air entry, no wheezing or crackles Abdomen: Soft, positive bowel sounds Extremities: No edema, no cyanosis Head: Atraumatic, normocephalic Ear: No gross hearing Deficit or external ear redness Eyes: No pallor or redness Neck: No JVD or visible mass Skin: No rashes , warm to touch [place]TISQUE[place] FILLER: Awake,Alert, following simple command Musculoskeletal: No swelling or limitation of movement of the large joints Psychiatric: Cooperative, normal mood and affect Objective Intake and Output I&O: Intake & Output 06/15/24 06/16/24 06/17/24 06/18/24 23:59 23:59 23:59 23:59 Intake Total 1640 / 1640 380 / 380 1430 / 1430 50 / 50 Output Total 2275 / 2275 1725 / 1725 525 / 525 625 / 625 Balance -635 / -635 -1345 / -1345 905 / 905 -575 / -575 Weight 80.2 kg 82 kg 81.5 kg 81.5 kg Meds and Allergies Meds: Active Medications Acetaminophen (Acetaminophen 325 Mg Tablet) 650 mg PO Q6HR PRN PRN Reason: Pain Scale 1 - 3 or fever Stop: 06/12/25 00:33 Last Admin: 06/17/24 21:11 Dose: 650 mg Aspirin (Aspirin 81 Mg Tab.Chew) 81 mg PO DAILY ERNESTINA Stop: 06/12/25 09:59 Last Admin: 06/18/24 09:15 Dose: 81 mg Atorvastatin Calcium (Atorvastatin 80 Mg Tablet) 80 mg PO QPM ERNESTINA Stop: 06/16/25 20:59 Last Admin: 06/16/24 22:08 Dose: Not Given Benzonatate (Benzonatate 100 Mg Capsule) 200 mg PO TID PRN PRN Reason: Cough Stop: 06/12/25 18:16 Last Admin: 06/13/24 17:54 Dose: 200 mg Clopidogrel Bisulfate (Clopidogrel Bisulfate 75 Mg Tablet) 75 mg PO DAILY [facility] Stop: 06/14/25 08:59 Last Admin: 06/18/24 09:15 Dose: 75 mg Dextrose (Dextrose 50% In Water 25 Gm/50 Ml Syringe) 0 gm IV-PUSH PRN PRN PRN Reason: Hypoglycemia Stop: 06/12/25 00:39 Dorzolamide HCl (Dorzolamide 2% Op Soln 200 Drops/10 Ml Bottle) 1 drops EYE-BOTH DAILY [facility] Stop: 06/12/25 08:59 Last Admin: 06/18/24 09:16 Dose: 1 drops Enoxaparin Sodium (Enoxaparin 80 Mg/0.8 Ml Syringe) 80 mg SUBCUT DAILY [facility] Stop: 06/17/25 08:59 Last Admin: 06/18/24 09:22 Dose: 80 mg Glucose (Dextrose 40% Gel 15 Gm Tube) 0 gm PO PRN PRN PRN Reason: Hypoglycemia Stop: 06/12/25 00:39 Hydralazine HCl (Hydralazine 50 Mg Tablet) 50 mg PO BID [facility] Stop: 06/17/25 20:59 Last Admin: 06/18/24 09:15 Dose: 50 mg Magnesium Sulfate (Magnesium Sulf 2gm-*Swfi*) 2 gm in 50 mls @ 25 mls/hr IV DAILY PRN PRN Reason: Magnesium Level < 1.5 Stop: 06/12/25 00:33 Last Infusion: 06/13/24 19:00 Dose: Infused Sodium Chloride (0.9% Sodium Chloride 500 Ml) 500 mls @ 0 mls/hr IV .Q0M [facility] Stop: 06/12/25 12:59 Last Admin: 06/14/24 09:39 Dose: 10 mls/hr Ceftriaxone Sodium (Rocephin) 1 gm in 50 mls @ 100 mls/hr IV Q24H [facility] Stop: 06/18/24 23:59 Last Admin: 06/17/24 15:43 Dose: 100 mls/hr Insulin Aspart (Insulin Aspart 300 Units/3 Ml) 0 units SUBCUT ACHS [facility]; Protocol Stop: 06/17/25 21:59 Last Admin: 06/18/24 11:30 Dose: 5 units Isosorbide Mononitrate (Isosorbide Mononitrate 24hr Er 60 Mg Tab.Er.24h) 60 mg PO DAILY.6A [facility] Stop: 06/18/25 05:59 Last Admin: 06/18/24 06:24 Dose: 60 mg Melatonin (Melatonin 5 Mg Tablet) 5 mg PO QHS [facility] Stop: 06/13/25 21:59 Last Admin: 06/17/24 21:11 Dose: 5 mg Metoprolol Tartrate (Metoprolol Tartrate 25 Mg Tablet) 25 mg PO BID [facility] Stop: 06/13/25 09:34 Last Admin: 06/18/24 09:15 Dose: 25 mg Nitroglycerin (Nitroglycerin 0.4 Mg Tab.Subl) 0.4 mg SUBLINGUAL Q5M PRN PRN Reason: Chest Pain Stop: 06/15/25 13:20 Ondansetron HCl (Ondansetron 4 Mg/2 Ml Vial) 4 mg IV-PUSH Q8H PRN PRN Reason: Nausea And Vomiting Stop: 06/12/25 00:33 Last Admin: 06/18/24 11:26 Dose: 4 mg Ondansetron HCl (Ondansetron 4 Mg/2 Ml Vial) 4 mg IV-PUSH Q6H PRN PRN Reason: Nausea And Vomiting Stop: 06/15/25 13:20 Potassium Chloride (Potassium Chloride Er 20 Meq Tab.Er.Prt) 20 meq PO DAILY PRN PRN Reason: Hypokalemia Stop: 06/12/25 00:33 Last Admin: 06/13/24 06:43 Dose: 20 meq Potassium Chloride (Potassium Chloride Er 20 Meq Tab.Er.Prt) 40 meq PO DAILY PRN PRN Reason: Hypokalemia Stop: 06/12/25 00:33 Sodium Chloride (Sodium Chloride 0.9 % 10 Ml Syringe) 0 ml IV-PUSH PRN PRN PRN Reason: Flush Stop: 06/13/25 10:28 Last Admin: 06/18/24 11:26 Dose: 10 ml Sodium Chloride (Sodium Chloride 0.9 % 10 Ml Syringe) 0 ml IV-PUSH PRN PRN PRN Reason: Flush Stop: 06/14/25 15:14 Spironolactone (Spironolactone 25 Mg Tablet) 25 mg PO DAILY ERNESTINA Stop: 06/16/25 08:59 Last Admin: 06/18/24 09:15 Dose: 25 mg Timolol Maleate (Timolol Mal 0.5% Op Soln 100 Drops/5 Ml Bottle) 1 drops EYE- BOTH DAILY ERNESTINA Stop: 06/12/25 08:59 Last Admin: 06/18/24 09:16 Dose: 1 drops Warfarin Sodium (Warfarin - Pharmacy Dosing) 1 each MISCELLANE PRN PRN PRN Reason: zz.Pharmacy Note Stop: 06/16/25 18:33 Warfarin Sodium (Warfarin 1 Mg Tablet) 0.5 mg PO ONCE ONE Stop: 06/18/24 17:01 Allergies flecainide Allergy (Unknown, Verified 05/17/24 08:07) Hives Results - Nephrology Labs 06/18/24 04:35 06/18/24 04:35 Labs: 06/17/24 06/17/24 06/18/24 04:39 04:39 04:35 BUN 65 H Creatinine 1.97 H Albumin 3.8 Cancelled 3.6 Radiology Impressions Impressions - last 24 hours: Any impression(s) listed above is documentation that was entered by the reading physician into a diagnostic report(s) for Lyric Juarez. I have reviewed the report(s) and am incorporating any findings in the treatment plan of this patient where applicable. A&P - Nephrology Assessment/Plan (1) Acute kidney injury superimposed on CKD: Assessment/Problem Details: She likely has an KARIS due to the CARMEN. Her renal function has been declining. 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 Her serum sodium within acceptable range. (3) CKD stage 3a, GFR 45-59 ml/min: Assessment/Problem Details: She has a CKD due to the DM and HTN with baseline serum creatinine around 1.1 mg/dL. Her renal function initially was worse due to the hypotension but improved with optimization of her hemodynamics. (4) Hypokalemia: Assessment/Problem Details: She had hypokalemia due to the diuretic induced renal potassium wasting. Her potassium is back to normal with oral and IV replacement. (5) Non-ST elevation (NSTEMI) myocardial infarction: Assessment/Problem Details: Patient also diagnosed to have a AZ. She was found to have a three-vessel disease. Medical management was recommended by cardiology. (6) Sepsis: Assessment/Problem Details: Patient presented with a sepsis and initially required vasopressors. She is offthe vasopressors and currently on broad-spectrum antibiotic. (7) COVID-19: Assessment/Problem Details: Patient has COVID-19 infection. She is currently on steroids. Pulmonary has been following the patient. (8) Atrial fibrillation: Assessment/Problem Details: Patient has atrial fibrillation. Currently on metoprolol. Plan * No need for emergent hemodialysis now. Will continue to assess its needs on regular basis. * Her serum sodium is within the acceptable range. No need for salt tablet or urea. * Continue IV antibiotic. Pharmacy to dose medication based on EGFR. * Continue management of CAD and A-fib as per cardiology. * Check renal function daily and monitor serum sodium closely * Monitor input output Daily and daily weight. * Documented By: Elvis Philip MD 06/18/24 115 Signed By: <Electronically signed by Elvis Philip MD> 06/18/24 2802 [facility] Work Phone: [phone] 577-268702-08-2025 Progress note Author Chris Sutton [facility] Note Date/Time June 18, 2024 1 0:20am [facility] [address] [place] [address] Pulmonology Progress Note Signed Patient: Lyric Juarez MR#: [id number] : 1945 Acct:[id number] Age/Sex: 78 / F Adm Date: 5 Loc: Room: [address] [place] [address] Type: ADM IN Attending Dr: Jaron Hicks MD Copies to: ~ Date of Service: 06/18/2024 Subjective Subjective Narrative: She has no new complaints today. Feels like her breathing is doing better. Sheis on 2 L via nasal cannula with saturation of 98%. Exam Physical Exam Vital Signs: Temp Pulse Resp BP Pulse Ox O2 Del Method O2 Flow Rate 96.9 F L 82 19 142/88 H 98 Nasal Cannula 2 06/18/24 04:00 06/18/24 04:00 06/18/24 04:00 06/18/24 04:00 06/18/24 04:00 06/18/24 04:00 06/18/24 04:00 FiO2 30 06/16/24 14:00 Narrative: General: AOx3, NAD, resting comfortably on 2LPM Head: Normocephalic and atraumatic Neck: No obvious elevation of JVP Mouth: Moist mucous membranes Pulmonary: CTAB, no w/r/r Cardiovascular: There is a regular rate and rhythm, normal S1 and S2, no murmurs, rubs, gallops Abdomen: Soft, nondistended, nontender to palpation Extremities: There is no clubbing of the upper extremities, there was no lower extremity edema Neurological: follows all commands, no gross focal deficits Psych: mood normal, affect normal Objective Intake and Output I&O - Last 24 Hours: Intake & Output 06/17/24 06/18/24 06/18/24 23:59 07:59 15:59 Intake Total 650 / 1430 50 / 50 Output Total 625 / 625 Balance 650 / 905 -575 / -575 Weight 81.5 kg Labs 06/18/24 04:35 06/18/24 04:35 Microbiology Micro: Microbiology 3 06/12/24 05:56 Blood Culture - Final Blood - Right Hand NO GROWTH 5 DAYS 06/12/24 06:05 Blood Culture - Final Blood - Left Hand NO GROWTH 5 DAYS Assessment/Plan Assessment/Plan (1) Sepsis: (2) Atrial fibrillation: (3) COVID-19: (4) Acute kidney injury: (5) Bradycardia: (6) Elevated troponin: (7) Hyponatremia: Plan Hospital day #7 for patient admitted for hypotension, atrial fibrillation with RVR with subsequent junctional bradycardia with ischemic cardiomyopathy amenableonly to medical management with incidental finding of COVID positive status. Patient is also noted to have Group B Strep in urine from outside hospital on ceftriaxone. Assessment: 1. Acute hypoxemic respiratory failure, improving 2. COVID-19 positive 3. UTI 4. A-fib with RVR 5. Ischemic cardiomyopathy 6. Hyponatremia 7. KARIS, likely CARMEN Plan: - Patient with minimal O2 requirements, can be likely weaned to room air ? Completing course of antibiotics for UTI, today should be last day ? Nephrology following for likely contrast-induced nephrology, creatinine improving ? Patient okay for transfer out of the intensive care unit from a pulmonary and critical care standpoint, I will sign off Documented By: Chris Sutton MD 06/18/24 1015 Signed By: <Electronically signed by Chris Sutton MD> 06/18/24 1020 [facility] Work Phone: [phone]) 662-712702-08-2025 [place] [address] Nephrology Progress Note Signed Patient: Lyric Juarez MR#: [id number] : 1945 Acct:[id number] Age/Sex: 78 / F Adm Date: 5 Loc: Room: [address] [place] [address] Type: ADM IN Attending Dr: Jaron Hicks MD Copies to: ~ Date of Service: 06/18/2024 Subjective Subjective Narrative: This is a 78-year-old female with medical history of atrial fibrillation, HTN, DM, CKD, HLD was presented to the [facility] after a fall. On evaluationin emergency room she was found to have afever with tachycardia. Her EKG showed A-fib with RVR and was given normal saline fluid boluses to improve her heart rate. She was transferred to the [facility] for sepsis management. Patient after arrival at [facility] was found to have a hypotension with a fall. She was given a normal saline bolus but due to the persistent hypotension she was moved to the intensive care unit and was started on Levophed. She was also given broad-spectrum antibioticsfor sepsis. Patient was also found to have a non-ST elevated AZ and cardiology was consulted. She had echocardiogram which showed EF 35 to 40% moderate pulmonary hypertension and dilated IVC. Cardiology also recommended a cardiac catheterization. Patient was also found to have a hyponatremia with serum sodium 123 to 124 mmol/L. She was given Bumex to improve her respiratory status. Nephrology is consulted for her hyponatremia management and CARMEN and risk stratification and prophylaxis. Patient underwent cardiac catheterization on 06/15/2024 and was found to have a three-vessel disease. Patient is not a suitable candidate for PCI or CABG. Cardiology recommended medical management. She was intubated in anticipation of the cardiac cath and was successfully extubated on 06/16/2024. Interim history Patient was seen and examined at bedside. She denies any chest pain palpation cough nausea vomit diarrhea and shortness of breath. She was participating in the physical therapy. Exam Physical Exam Vital Signs: Temp Pulse Resp BP Pulse Ox O2 Del Method O2 Flow Rate 96.9 F L 82 19 142/88 H 98 Nasal Cannula 2 06/18/24 04:00 06/18/24 04:00 06/18/24 04:00 06/18/24 04:00 06/18/24 04:00 06/18/24 08:00 06/18/24 08:00 FiO2 30 06/16/24 14:00 Narrative: General: Appears comfortable and not in distress Heart: S1-S2, no rub Lung: Bilateral air entry, no wheezing or crackles Abdomen: Soft, positive bowel sounds Extremities: No edema, no cyanosis Head: Atraumatic, normocephalic Ear: No gross hearing Deficit or external ear redness Eyes: No pallor or redness Neck: No JVD or visible mass Skin: No rashes , warm to touch ANTISQUEAK FILLER: Awake,Alert, following simple command Musculoskeletal: No swelling or limitation of movement of the large joints Psychiatric: Cooperative, normal mood and affect Objective Intake and Output I&O: Intake & Output 06/15/24 06/16/24 06/17/24 06/18/24 23:59 23:59 23:59 23:59 Intake Total 1640 / 1640 380 / 380 1430 / 1430 50 / 50 Output Total 2275 / 2275 1725 / 1725 525 / 525 625 / 625 Balance -635 / -635 -1345 / -1345 905 / 905 -575 / -575 Weight 80.2 kg 82 kg 81.5 kg 81.5 kg Meds and Allergies Meds: Active Medications Acetaminophen (Acetaminophen 325 Mg Tablet) 650 mg PO Q6HR PRN PRN Reason: Pain Scale 1 - 3 or fever Stop: 06/12/25 00:33 Last Admin: 06/17/24 21:11 Dose: 650 mg Aspirin (Aspirin 81 Mg Tab.Chew) 81 mg PO DAILY ERNESTINA Stop: 06/12/25 09:59 Last Admin: 06/18/24 09:15 Dose: 81 mg Atorvastatin Calcium (Atorvastatin 80 Mg Tablet) 80 mg PO QPM ERNESTINA Stop: 06/16/25 20:59 Last Admin: 06/16/24 22:08 Dose: Not Given Benzonatate (Benzonatate 100 Mg Capsule) 200 mg PO TID PRN PRN Reason: Cough Stop: 06/12/25 18:16 Last Admin: 06/13/24 17:54 Dose: 200 mg Clopidogrel Bisulfate (Clopidogrel Bisulfate 75 Mg Tablet) 75 mg PO DAILY ERNESTINA Stop: 06/14/25 08:59 Last Admin: 06/18/24 09:15 Dose: 75 mg Dextrose (Dextrose 50% In Water 25 Gm/50 Ml Syringe) 0 gm IV-PUSH PRN PRN PRN Reason: Hypoglycemia Stop: 06/12/25 00:39 Dorzolamide HCl (Dorzolamide 2% Op Soln 200 Drops/10 Ml Bottle) 1 drops EYE-BOTH DAILY ERNESTINA Stop: 06/12/25 08:59 Last Admin: 06/18/24 09:16 Dose: 1 drops Enoxaparin Sodium (Enoxaparin 80 Mg/0.8 Ml Syringe) 80 mg SUBCUT DAILY ERNESTINA Stop: 06/17/25 08:59 Last Admin: 06/18/24 09:22 Dose: 80 mg Glucose (Dextrose 40% Gel 15 Gm Tube) 0 gm PO PRN PRN PRN Reason: Hypoglycemia Stop: 06/12/25 00:39 Hydralazine HCl (Hydralazine 50 Mg Tablet) 50 mg PO BID ERNESTINA Stop: 06/17/25 20:59 Last Admin: 06/18/24 09:15 Dose: 50 mg Magnesium Sulfate (Magnesium Sulf 2gm-*Swfi*) 2 gm in 50 mls @ 25 mls/hr IV DAILY PRN PRN Reason: Magnesium Level < 1.5 Stop: 06/12/25 00:33 Last Infusion: 06/13/24 19:00 Dose: Infused Sodium Chloride (0.9% Sodium Chloride 500 Ml) 500 mls @ 0 mls/hr IV .Q0M [facility] Stop: 06/12/25 12:59 Last Admin: 06/14/24 09:39 Dose: 10 mls/hr Ceftriaxone Sodium (Rocephin) 1 gm in 50 mls @ 100 mls/hr IV Q24H [facility] Stop: 06/18/24 23:59 Last Admin: 06/17/24 15:43 Dose: 100 mls/hr Insulin Aspart (Insulin Aspart 300 Units/3 Ml) 0 units SUBCUT ACHS [facility]; Protocol Stop: 06/17/25 21:59 Last Admin: 06/18/24 11:30 Dose: 5 units Isosorbide Mononitrate (Isosorbide Mononitrate 24hr Er 60 Mg Tab.Er.24h) 60 mg PO DAILY.6A [facility] Stop: 06/18/25 05:59 Last Admin: 06/18/24 06:24 Dose: 60 mg Melatonin (Melatonin 5 Mg Tablet) 5 mg PO QHS [facility] Stop: 06/13/25 21:59 Last Admin: 06/17/24 21:11 Dose: 5 mg Metoprolol Tartrate (Metoprolol Tartrate 25 Mg Tablet) 25 mg PO BID [facility] Stop: 06/13/25 09:34 Last Admin: 06/18/24 09:15 Dose: 25 mg Nitroglycerin (Nitroglycerin 0.4 Mg Tab.Subl) 0.4 mg SUBLINGUAL Q5M PRN PRN Reason: Chest Pain Stop: 06/15/25 13:20 Ondansetron HCl (Ondansetron 4 Mg/2 Ml Vial) 4 mg IV-PUSH Q8H PRN PRN Reason: Nausea And Vomiting Stop: 06/12/25 00:33 Last Admin: 06/18/24 11:26 Dose: 4 mg Ondansetron HCl (Ondansetron 4 Mg/2 Ml Vial) 4 mg IV-PUSH Q6H PRN PRN Reason: Nausea And Vomiting Stop: 06/15/25 13:20 Potassium Chloride (Potassium Chloride Er 20 Meq Tab.Er.Prt) 20 meq PO DAILY PRN PRN Reason: Hypokalemia Stop: 06/12/25 00:33 Last Admin: 06/13/24 06:43 Dose: 20 meq Potassium Chloride (Potassium Chloride Er 20 Meq Tab.Er.Prt) 40 meq PO DAILY PRN PRN Reason: Hypokalemia Stop: 06/12/25 00:33 Sodium Chloride (Sodium Chloride 0.9 % 10 Ml Syringe) 0 ml IV-PUSH PRN PRN PRN Reason: Flush Stop: 06/13/25 10:28 Last Admin: 06/18/24 11:26 Dose: 10 ml Sodium Chloride (Sodium Chloride 0.9 % 10 Ml Syringe) 0 ml IV-PUSH PRN PRN PRN Reason: Flush Stop: 06/14/25 15:14 Spironolactone (Spironolactone 25 Mg Tablet) 25 mg PO DAILY ERNESTINA Stop: 06/16/25 08:59 Last Admin: 06/18/24 09:15 Dose: 25 mg Timolol Maleate (Timolol Mal 0.5% Op Soln 100 Drops/5 Ml Bottle) 1 drops EYE- BOTH DAILY ERNESTINA Stop: 06/12/25 08:59 Last Admin: 06/18/24 09:16 Dose: 1 drops Warfarin Sodium (Warfarin - Pharmacy Dosing) 1 each MISCELLANE PRN PRN PRN Reason: zz.Pharmacy Note Stop: 06/16/25 18:33 Warfarin Sodium (Warfarin 1 Mg Tablet) 0.5 mg PO ONCE ONE Stop: 06/18/24 17:01 Allergies flecainide Allergy (Unknown, Verified 05/17/24 08:07) Hives Results - Nephrology Labs 06/18/24 04:35 06/18/24 04:35 Labs: 06/17/24 06/17/24 06/18/24 04:39 04:39 04:35 BUN 65 H Creatinine 1.97 H Albumin 3.8 Cancelled 3.6 Radiology Impressions Impressions - last 24 hours: Any impression(s) listed above is documentation that was entered by the reading physician into a diagnostic report(s) for Lyric Juarez. I have reviewed the report(s) and am incorporating any findings in the treatment plan of this patient where applicable. A&P - Nephrology Assessment/Plan (1) Acute kidney injury superimposed on CKD: Assessment/Problem Details: She likely has an KARIS due to the CARMEN. Her renal function has been declining. 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 Her serum sodium within acceptable range. (3) CKD stage 3a, GFR 45-59 ml/min: Assessment/Problem Details: She has a CKD due to the DM and HTN with baseline serum creatinine around 1.1 mg/dL. Her renal function initially was worse due to the hypotension but improved with optimization of her hemodynamics. (4) Hypokalemia: Assessment/Problem Details: She had hypokalemia due to the diuretic induced renal potassium wasting. Her potassium is back to normal with oral and IV replacement. (5) Non-ST elevation (NSTEMI) myocardial infarction: Assessment/Problem Details: Patient also diagnosed to have a AZ. She was found to have a three-vessel disease. Medical management was recommended by cardiology. (6) Sepsis: Assessment/Problem Details: Patient presented with a sepsis and initially required vasopressors. She is offthe vasopressors andcurrently on broad-spectrum antibiotic. (7) COVID-19: Assessment/Problem Details: Patient has COVID-19 infection. She is currently on steroids. Pulmonary has been following the patient. (8) Atrial fibrillation: Assessment/Problem Details: Patient has atrial fibrillation. Currently on metoprolol. Plan * No need for emergent hemodialysis now. Will continue to assess its needs on regular basis. * Her serum sodium is within the acceptable range. No need for salt tablet or urea. * Continue IV antibiotic. Pharmacy to dose medication based on EGFR. * Continue management of CAD and A-fib as per cardiology. * Check renal function daily and monitor serum sodium closely * Monitor input output Daily and daily weight. * Documented By: Elvis Philip MD 06/18/24 1152 Signed By: 06/18/24 1154 [facility]02-08-2025 [place] [address] Pulmonology Progress Note Signed Patient: Lyric Juarez MR#: [id number] : 1945 Acct:[id number] Age/Sex: 78 / F Adm Date: 5 Loc: Room: [address] [place] [address] Type: ADM IN Attending Dr: Jaron Hicks MD Copies to: ~ Date of Service: 06/18/2024 Subjective Subjective Narrative: She has no new complaints today. Feels like her breathing is doing better. Sheis on 2 L via nasal cannula with saturation of 98%. Exam Physical Exam Vital Signs: Temp Pulse Resp BP Pulse Ox O2 Del Method O2 Flow Rate 96.9 F L 82 19 142/88 H 98 Nasal Cannula 2 06/18/24 04:00 06/18/24 04:00 06/18/24 04:00 06/18/24 04:00 06/18/24 04:00 06/18/24 04:00 06/18/24 04:00 FiO2 30 06/16/24 14:00 Narrative: General: AOx3, NAD, resting comfortably on 2LPM Head: Normocephalic and atraumatic Neck: No obvious elevation of JVP Mouth: Moist mucous membranes Pulmonary: CTAB, no w/r/r Cardiovascular: There is a regular rate and rhythm, normal S1 and S2, no murmurs, rubs, gallops Abdomen: Soft, nondistended, nontender to palpation Extremities: There is no clubbing of the upper extremities, there was no lower extremity edema Neurological: follows all commands, no gross focal deficits Psych: mood normal, affect normal Objective Intake and Output I&O - Last 24 Hours: Intake & Output 06/17/24 06/18/24 06/18/24 23:59 07:59 15:59 Intake Total 650 / 1430 50 / 50 Output Total 625 / 625 Balance 650 / 905 -575 / -575 Weight 81.5 kg Labs 06/18/24 04:35 06/18/24 04:35 Microbiology Micro: Microbiology 3 06/12/24 05:56 Blood Culture - Final Blood - Right Hand NO GROWTH 5 DAYS 06/12/24 06:05 Blood Culture - Final Blood - Left Hand NO GROWTH 5 DAYS Assessment/Plan Assessment/Plan (1) Sepsis: (2) Atrial fibrillation: (3) COVID-19: (4) Acute kidney injury: (5) Bradycardia: (6) Elevated troponin: (7) Hyponatremia: Plan Hospital day #7 for patient admitted for hypotension, atrial fibrillation with RVR with subsequent junctional bradycardia with ischemic cardiomyopathy amenableonly to medical management with incidental finding of COVID positive status. Patient is also noted to have Group B Strep in urine from outside hospital on ceftriaxone. Assessment: 1. Acute hypoxemic respiratory failure, improving 2. COVID-19 positive 3. UTI 4. A-fib with RVR 5. Ischemic cardiomyopathy 6. Hyponatremia 7. KARIS, likely CARMEN Plan: - Patient with minimal O2 requirements, can be likely weaned to room air ? Completing course of antibiotics for UTI, today should be last day ? Nephrology following for likely contrast-induced nephrology, creatinine improving ? Patient okay for transfer out of the intensive care unit from a pulmonary and critical care standpoint, I will sign off Documented By: Chris Sutton MD 06/18/24 1015 Signed By: 06/18/24 1020 [facility]02-07-2025 Progress note Author Jaron Hicks [facility] Note Date/Time June 17, 2024 5 :40pm [facility] [address] [place] [address] Hospitalist Progress Note Signed Patient: Lyric Juarez MR#: [id number] : 1945 Acct:[id number] Age/Sex: 78 / F Adm Date: 5 Loc: Room: [address] [place] [address] Type: ADM IN Attending Dr: Jaron Hicks MD Copies to: ~ Date of Service: 06/17/2024 Subjective Subjective Narrative: Assessment And Plan 78F with history of atrial fibrillation, HTN, HLD, DM, CKD, Afib, and URSULA who presented to [place] ED presented after dizziness associated with a fall and was transferred for possible UTI /sepsis Rule out Septic shock - resolved lactic acidosis - resolved the patient is afebrile there is no significant leukocytosis . Pulmonary was consulted She was started on Zosyn/vancomycin empirically and required norepinephrine dripdespite appropriate IV fluids Influenza A and B Antigen [place] [facility] negative Blood Cx at [place] [facility] 06/11 no growth at 36-48h UA [place] [facility] with WBC < 10 blood culture 06/12 negative so far Lactic acidosis could be related to metformin use; her shock could be more cardiogenic her Abx was deescalated to ceftriaxone Covid19 infection ABG shows no hypercapnia SARS-CoV-2 Ag positive at [facility] CXR shows left lower lobe airspace disease and small left pleural effusion. she received supportive treatment Hypoxia - improving she has required up to 3L via nasal cannula. Hypoxia could be related to HF exacerbation and/or Covid19 infection and/or respiratory infection ventilator dependence she was intubated since she can't lay flat to to the [facility]. she was extubated / Afib RVR - resolved She Presented with A-fib with rapid ventricular rate to [place] ED warfarin restarted with bridging with Lovenox Hyponatremia Na improving Na as low as 123; Urine Osmolality 583; Urine Na 18 nephrology recommendation appreciated Possible KARIS Cr 1.4 on admission, Cr is up today to 2.1 nephrology on consult NSTEMI ICM Possible Acute HFrEF Troponin is > 10K Echo shows EF 40%; Takotsubo Syndrome, Mild AR, RVSP 40-50mmHg she was started on heparin gtt she was evaluated by Cardiology. she underwent [facility] shows Severe three-vessel coronary artery disease . she found to be not a candidate for PCI or coronary bypass surgery she is to continue Dual antiplatelet therapy, Statin , vasodilators (hydralazineand nitrates) . WADE inhibitors/ARB's/ARNI to be Avoided Due to hyponatremia ischemic hepatitis - improving AST/ALT reached up more than 1000. TB wnl hepatitis C and b testing negative this is Likely due to shock that cause ischemic hepatitis Hold on statin CMP in am she was evaluated by GI coagulopathy INR up to 5.1; she was given Vit K and FFP to reverse INR for cardiac catheterization Hypomagnesemia Mg 1.1 on admission Replaced as needed DM blood sugars were reviewed (uncontrolled due to steroids) sliding scale insulin and accuchecks. hold oral antidiabetic medication/metformin. Fall CT head/brain wo con ([place] [facility]) shows no acute finding CT cervical spine wo con ([facility]) shows No acute cervical spinal fracture CXR ([facility]) no acute finding LINTERVAL HPI: As Above, Pt resting in bed. still weak all over worked with PT/OT today Chronic diseases: Unless mentioned Above, Essential home medications have been continued. DVT Px: Addressed Disposition: To be determined - move out ICU if bed available Plan of care Discussed with: the medical team, the family at bedside L Exam Physical Exam Vital Signs: Temp Pulse Resp BP Pulse Ox O2 Del Method O2 Flow Rate 36.1 C L 94 28 H 128/93 98 Nasal Cannula 2 06/17/24 12:06/17/24 12:06/17/24 12:06/17/24 12:00 06/17/24 10:00 06/17/24 12:00 06/17/24 12:00 FiO2 30 06/16/24 14:00 Narrative: GEN: NAD, LUNGS: diminished breathing sounds CV: nl S1 S2; no M/R/G ABD: Soft, ND, NT, + BS, EXT: No peripheral edema, No calf muscle tenderness NEURO: generalized weakness move all her extremities Objective Lab Results 06/17/24 04:39 06/17/24 04:39 Microbiology Results Microbiology 06/12/24 05:56 Blood - Right Hand Blood Culture - Final NO GROWTH 5 DAYS 06/12/24 06:05 Blood - Left Hand Blood Culture - Final NO GROWTH 5 DAYS Meds Allergies and Active Meds Allergies flecainide Allergy (Unknown, Verified 05/17/24 08:07) Hives Active Meds: Active Medications Generic Name Dose Route Start Last Admin Trade Name Freq PRN Reason Stop Dose Admin Acetaminophen 650 mg 06/12/24 00:34 06/17/24 00:10 Acetaminophen 325 Mg Tablet PO 06/12/25 00:33 650 mg Q6HR PRN Administration Pain Scale 1 - 3 or fever Albuterol/Ipratropium 3 ml 06/12/24 18:03 06/13/24 08:53 Ipratropium/Albuterol 0.5-3 Mg 3 Ml Ampul.Neb INHALATION 06/12/25 18:14 3 ml Q6H PRN Administration SOB OR WHEEZING Aspirin 81 mg 06/12/24 10:00 06/17/24 09:39 Aspirin 81 Mg Tab.Chew PO 06/12/25 09:59 81 mg DAILY ERNESTINA Administration Atorvastatin Calcium 80 mg 06/16/24 21:00 06/16/24 22:08 Atorvastatin 80 Mg Tablet PO 06/16/25 20:59 Not Given QPM ERNESTINA Benzonatate 200 mg 06/12/24 18:17 06/13/24 17:54 Benzonatate 100 Mg Capsule PO 06/12/25 18:16 200 mg TID PRN Administration Cough Clopidogrel Bisulfate 75 mg 06/14/24 09:00 06/17/24 09:39 Clopidogrel Bisulfate 75 Mg Tablet PO 06/14/25 08:59 75 mg DAILY ERNESTINA Administration Dextrose 0 gm 06/12/24 00:40 Dextrose 50% In Water 25 Gm/50 Ml Syringe IV-PUSH 06/12/25 00:39 PRN PRN Hypoglycemia Dorzolamide HCl 1 drops 06/12/24 09:00 06/17/24 09:40 Dorzolamide 2% Op Soln 200 Drops/10 Ml Bottle EYE-BOTH 06/12/25 08:59 1 drops DAILY ERNESTINA Administration Enoxaparin Sodium 80 mg 06/17/24 09:00 06/17/24 12:28 Enoxaparin 80 Mg/0.8 Ml Syringe SUBCUT 06/17/25 08:59 80 mg DAILY ERNESTINA Administration Glucose 0 gm 06/12/24 00:40 Dextrose 40% Gel 15 Gm Tube PO 06/12/25 00:39 PRN PRN Hypoglycemia Hydralazine HCl 50 mg 06/17/24 21:00 Hydralazine 50 Mg Tablet PO 06/17/25 20:59 BID RENESTINA Magnesium Sulfate 2 gm in 50 mls @ 25 mls/hr 06/12/24 00:34 06/13/24 19:00 Magnesium Sulf 2gm-*Swfi* IV 06/12/25 00:33 Infused DAILY PRN Infusion Magnesium Level < 1.5 Sodium Chloride 500 mls @ 0 mls/hr 06/12/24 13:00 06/14/24 09:39 0.9% Sodium Chloride 500 Ml IV 06/12/25 12:59 10 mls/hr .Q0M ERNESTINA Administration Per Protocol Ceftriaxone Sodium 1 gm in 50 mls @ 100 mls/hr 06/16/24 14:00 06/17/24 15:43 Rocephin IV 06/18/24 23:59 100 mls/hr Q24H ERNESTINA Administration Insulin Aspart 0 units 06/14/24 18:00 06/17/24 12:27 Insulin Aspart 300 Units/3 Ml SUBCUT 06/14/25 17:59 2 units Q6HR ERNESTINA Administration Protocol Isosorbide Mononitrate 60 mg 06/18/24 06:00 Isosorbide Mononitrate 24hr Er 60 Mg Tab.Er.24h PO 06/18/25 05:59 DAILY.6A ERNESTINA Melatonin 5 mg 06/13/24 22:00 06/16/24 22:08 Melatonin 5 Mg Tablet PO 06/13/25 21:59 Not Given QHS ERNESTINA Metoprolol Tartrate 25 mg 06/13/24 09:35 06/17/24 09:39 Metoprolol Tartrate 25 Mg Tablet PO 06/13/25 09:34 25 mg BID ERNESTINA Administration Metoprolol Tartrate 5 mg 06/13/24 15:20 06/14/24 00:00 Metoprolol Tartrate 5 Mg/5 Ml Vial IV-PUSH 06/13/25 15:19 5 mg Q6H PRN Administration Heart Rate- High Morphine Sulfate 4 mg 06/15/24 13:21 Morphine Sulfate 4 Mg/Ml Cartridge IV-PUSH Q20M PRN Chest Pain Nitroglycerin 0.4 mg 06/15/24 13:21 Nitroglycerin 0.4 Mg Tab.Subl SUBLINGUAL 06/15/25 13:20 Q5M PRN Chest Pain Ondansetron HCl 4 mg 06/12/24 00:34 06/16/24 18:49 Ondansetron 4 Mg/2 Ml Vial IV-PUSH 06/12/25 00:33 4 mg Q8H PRN Administration Nausea And Vomiting Ondansetron HCl 4 mg 06/15/24 13:21 Ondansetron 4 Mg/2 Ml Vial IV-PUSH 06/15/25 13:20 Q6H PRN Nausea And Vomiting Pantoprazole Sodium 40 mg 06/15/24 10:30 06/17/24 09:39 Pantoprazole 40 Mg Vial IV-PUSH 06/15/25 10:29 40 mg DAILY ERNESTINA Administration Potassium Chloride 20 meq 06/12/24 00:34 06/13/24 06:43 Potassium Chloride Er 20 Meq Tab.Er.Prt PO 06/12/25 00:33 20 meq DAILY PRN Administration Hypokalemia Potassium Chloride 40 meq 06/12/24 00:34 Potassium Chloride Er 20 Meq Tab.Er.Prt PO 06/12/25 00:33 DAILY PRN Hypokalemia Potassium Chloride 40 meq 06/15/24 07:00 Potassium Chloride Er 20 Meq Tab.Er.Prt PO STAT PRN Hypokalemia Potassium Chloride 40 meq 06/15/24 06:43 06/16/24 05:23 Potassium Chloride Liquid 20 Meq/15 Ml Udc PO 06/15/25 06:42 40 meq DAILY PRN Administration Hypokalemia Sodium Chloride 0 ml 06/13/24 10:29 06/15/24 20:43 Sodium Chloride 0.9 % 10 Ml Syringe IV-PUSH 06/13/25 10:28 10 ml PRN PRN Administration Flush Sodium Chloride 0 ml 06/14/24 15:15 Sodium Chloride 0.9 % 10 Ml Syringe IV-PUSH 06/14/25 15:14 PRN PRN Flush Sodium Chloride 10 ml 06/15/24 10:30 06/17/24 09:39 Sodium Chloride 0.9 % 10 Ml Vial.Pf INJECTION 06/15/25 10:29 10 ml DAILY ERNESTINA Administration Sodium Chloride 10 ml 06/15/24 10:10 Sodium Chloride 0.9 % 10 Ml Syringe IV-PUSH 06/15/25 10:09 PRN PRN Flush Spironolactone 25 mg 06/16/24 09:00 06/17/24 09:39 Spironolactone 25 Mg Tablet PO 06/16/25 08:59 25 mg DAILY ERNESTINA Administration Timolol Maleate 1 drops 06/12/24 09:00 06/17/24 09:40 Timolol Mal 0.5% Op Soln 100 Drops/5 Ml Bottle EYE-BOTH 06/12/25 08:59 1 drops DAILY ERNESTINA Administration Warfarin Sodium 1 each 06/16/24 18:34 Warfarin - Pharmacy Dosing MISCELLANE 06/16/25 18:33 PRN PRN zz.Pharmacy Note Warfarin Sodium 5 mg 06/17/24 17:00 Warfarin 5 Mg Tablet PO 06/17/24 17:01 ONCE ONE A&P - Hospitalist Assessment/Plan (1) COVID-19: Plan Documented By: Jaron Hicks MD 06/17/24 1605 Signed By: <Electronically signed by Jaron Hicks MD> 06/17/24 6624 [facility] Work Phone: [phone]) 799-183902-07-2025 [place] [address] Hospitalist Progress Note Signed Patient: Lyric Juarez MR#: [id number] : 1945 Acct:[id number] Age/Sex: 78 / F Adm Date: 5 Loc: Room: [address] [place] [address] Type: ADM IN Attending Dr: Jaron Hicks MD Copies to: ~ Date of Service: 06/17/2024 Subjective Subjective Narrative: Assessment And Plan 78F with history of atrial fibrillation, HTN, HLD, DM, CKD, Afib, and URSULA who presented to [facility] presented after dizziness associated with a fall and was transferred for possible UTI /sepsis Rule out Septic shock - resolved lactic acidosis - resolved the patient is afebrile there is no significant leukocytosis . Pulmonary was consulted She was started on Zosyn/vancomycin empirically and required norepinephrine dripdespite appropriateIV fluids Influenza A and B Antigen [facility] negative Blood Cx at [place] [facility] 06/11 no growth at 36-48h UA [place] [facility] with WBC < 10 blood culture 06/12 negative so far Lactic acidosis could be related to metformin use; her shock could be more cardiogenic her Abx was deescalated to ceftriaxone Covid19 infection ABG shows no hypercapnia SARS-CoV-2 Ag positive at [facility] CXR shows left lower lobe airspace disease and small left pleural effusion. she received supportive treatment Hypoxia - improving she has required up to 3L via nasal cannula. Hypoxia could be related to HF exacerbation and/or Covid19 infection and/or respiratory infection ventilator dependence she was intubated since she can't lay flat to to the [facility]. she was extubated 05/16 Afib RVR - resolved She Presented with A-fib with rapid ventricular rate to [place] ED warfarin restarted with bridging with Lovenox Hyponatremia Na improving Na as low as 123; Urine Osmolality 583; Urine Na 18 nephrology recommendation appreciated Possible KARIS Cr 1.4 on admission, Cr is up today to 2.1 nephrology on consult NSTEMI ICM Possible Acute HFrEF Troponin is > 10K Echo shows EF 40%; Takotsubo Syndrome, Mild AR, RVSP 40-50mmHg she was started on heparin gtt she was evaluated by Cardiology. she underwent C shows Severe three-vessel coronary artery disease . she found to be not a candidate for PCI or coronary bypass surgery she is to continue Dual antiplatelet therapy, Statin , vasodilators (hydralazineand nitrates) . ACEinhibitors/ARB's/ARNI to be Avoided Due to hyponatremia ischemic hepatitis - improving AST/ALT reached up more than 1000. TB wnl hepatitis C and b testing negative this is Likely due to shock that cause ischemic hepatitis Hold on statin CMP in am she was evaluated by GI coagulopathy INR up to 5.1; she was given Vit K and FFP to reverse INR for cardiac catheterization Hypomagnesemia Mg 1.1 on admission Replaced as needed DM blood sugars were reviewed (uncontrolled due to steroids) sliding scale insulin and accuchecks. hold oral antidiabetic medication/metformin. Fall CT head/brain wo con ([place] [facility]) shows no acute finding CT cervical spine wo con ([facility]) shows No acute cervical spinal fracture CXR ([facility]) no acute finding LINTERVAL HPI: As Above, Pt resting in bed. still weak all over worked with PT/OT today Chronic diseases: Unless mentioned Above, Essential home medications have been continued. DVT Px: Addressed Disposition: To be determined - move out ICU if bed available Plan of care Discussed with: the medical team, the family at bedside L Exam Physical Exam Vital Signs: Temp Pulse Resp BP Pulse Ox O2 Del Method O2 Flow Rate 36.1 C L 94 28 H 128/93 98 Nasal Cannula 2 06/17/24 12:00 06/17/24 12:00 06/17/24 12:00 06/17/24 12:00 06/17/24 10:00 06/17/24 12:00 06/17/24 12:00 FiO2 30 06/16/24 14:00 Narrative: GEN: NAD, LUNGS: diminished breathing sounds CV: nl S1 S2; no M/R/G ABD: Soft, ND, NT, + BS, EXT: No peripheral edema, No calf muscle tenderness NEURO: generalized weakness move all her extremities Objective Lab Results 06/17/24 04:39 06/17/24 04:39 Microbiology Results Microbiology 06/12/24 05:56 Blood - Right Hand Blood Culture - Final NO GROWTH 5 DAYS 06/12/24 06:05 Blood - Left Hand Blood Culture - Final NO GROWTH 5 DAYS Meds Allergies and Active Meds Allergies flecainide Allergy (Unknown, Verified 05/17/24 08:07) Hives Active Meds: Active Medications Generic Name Dose Route Start Last Admin Trade Name Freq PRN Reason Stop Dose Admin Acetaminophen 650 mg 06/12/24 00:34 06/17/24 00:10 Acetaminophen 325 Mg Tablet PO 06/12/25 00:33 650 mg Q6HR PRN Administration Pain Scale 1 - 3 or fever Albuterol/Ipratropium 3 ml 06/12/24 18:03 02/03/25 08:53 Ipratropium/Albuterol 0.5-3 Mg 3 Ml Ampul.Neb INHALATION 06/12/25 18:14 3 ml Q6H PRN Administration SOB OR WHEEZING Aspirin 81 mg 06/12/24 10:00 06/17/24 09:39 Aspirin 81 Mg Tab.Chew PO 06/12/25 09:59 81 mg DAILY ERNESTINA Administration Atorvastatin Calcium 80 mg 06/16/24 21:00 06/16/24 22:08 Atorvastatin 80 Mg Tablet PO 06/16/25 20:59 Not Given QPM ERNESTINA Benzonatate 200 mg 06/12/24 18:17 06/13/24 17:54 Benzonatate 100 Mg Capsule PO 06/12/25 18:16 200 mg TID PRN Administration Cough Clopidogrel Bisulfate 75 mg 06/14/24 09:00 06/17/24 09:39 Clopidogrel Bisulfate 75 Mg Tablet PO 06/14/25 08:59 75 mg DAILY ERNESTINA Administration Dextrose 0 gm 06/12/24 00:40 Dextrose 50% In Water 25 Gm/50 Ml Syringe IV-PUSH 06/12/25 00:39 PRN PRN Hypoglycemia Dorzolamide HCl 1 drops 06/12/24 09:00 06/17/24 09:40 Dorzolamide 2% Op Soln 200 Drops/10 Ml Bottle EYE-BOTH 06/12/25 08:59 1 drops DAILY ERNESTINA Administration Enoxaparin Sodium 80 mg 06/17/24 09:00 06/17/24 12:28 Enoxaparin 80 Mg/0.8 Ml Syringe SUBCUT 06/17/25 08:59 80 mg DAILY ERNESTINA Administration Glucose 0 gm 06/12/24 00:40 Dextrose 40% Gel 15 Gm Tube PO 06/12/25 00:39 PRN PRN Hypoglycemia Hydralazine HCl 50 mg 06/17/24 21:00 Hydralazine 50 Mg Tablet PO 06/17/25 20:59 BID ERNESTINA Magnesium Sulfate 2 gm in 50 mls @ 25 mls/hr 06/12/24 00:34 06/13/24 19:00 Magnesium Sulf 2gm-*Swfi* IV 06/12/25 00:33 Infused DAILY PRN Infusion Magnesium Level < 1.5 Sodium Chloride 500 mls @ 0 mls/hr 06/12/24 13:00 06/14/24 09:39 0.9% Sodium Chloride 500 Ml IV 06/12/25 12:59 10 mls/hr .Q0M ERNESTINA Administration Per Protocol Ceftriaxone Sodium 1 gm in 50 mls @ 100 mls/hr 06/16/24 14:00 06/17/24 15:43 Rocephin IV 06/18/24 23:59 100 mls/hr Q24H ERNESTINA Administration Insulin Aspart 0 units 06/14/24 18:00 06/17/24 12:27 Insulin Aspart 300 Units/3 Ml SUBCUT 06/14/25 17:59 2 units Q6HR ERNESTINA Administration Protocol Isosorbide Mononitrate 60 mg 06/18/24 06:00 Isosorbide Mononitrate 24hr Er 60 Mg Tab.Er.24h PO 06/18/25 05:59 DAILY.6A ERNESTINA Melatonin 5 mg 06/13/24 22:00 06/16/24 22:08 Melatonin 5 Mg Tablet PO 06/13/25 21:59 Not Given QHS [facility] Metoprolol Tartrate 25 mg 06/13/24 09:35 06/17/24 09:39 Metoprolol Tartrate 25 Mg Tablet PO 06/13/25 09:34 25 mg BID ERNESTINA Administration Metoprolol Tartrate 5 mg 06/13/24 15:20 06/14/24 00:00 Metoprolol Tartrate 5 Mg/5 Ml Vial IV-PUSH 06/13/25 15:19 5 mg Q6H PRN Administration Heart Rate- High Morphine Sulfate 4 mg 06/15/24 13:21 Morphine Sulfate 4 Mg/Ml Cartridge IV-PUSH Q20M PRN Chest Pain Nitroglycerin 0.4 mg 06/15/24 13:21 Nitroglycerin 0.4 Mg Tab.Subl SUBLINGUAL 06/15/25 13:20 Q5M PRN Chest Pain Ondansetron HCl 4 mg 06/12/24 00:34 06/16/24 18:49 Ondansetron 4 Mg/2 Ml Vial IV-PUSH 06/12/25 00:33 4 mg Q8H PRN Administration Nausea And Vomiting Ondansetron HCl 4 mg 06/15/24 13:21 Ondansetron 4 Mg/2 Ml Vial IV-PUSH 06/15/25 13:20 Q6H PRN Nausea And Vomiting Pantoprazole Sodium 40 mg 06/15/24 10:30 06/17/24 09:39 Pantoprazole 40 Mg Vial IV-PUSH 06/15/25 10:29 40 mg DAILY ERNESTINA Administration Potassium Chloride 20 meq 06/12/24 00:34 06/13/24 06:43 Potassium Chloride Er 20 Meq Tab.Er.Prt PO 06/12/25 00:33 20 meq DAILY PRN Administration Hypokalemia Potassium Chloride 40 meq 06/12/24 00:34 Potassium Chloride Er 20 Meq Tab.Er.Prt PO 06/12/25 00:33 DAILY PRN Hypokalemia Potassium Chloride 40 meq 06/15/24 07:00 Potassium Chloride Er 20 Meq Tab.Er.Prt PO STAT PRN Hypokalemia Potassium Chloride 40 meq 06/15/24 06:43 06/16/24 05:23 Potassium Chloride Liquid 20 Meq/15 Ml Udc PO 06/15/25 06:42 40 meq DAILY PRN Administration Hypokalemia Sodium Chloride 0 ml 06/13/24 10:29 06/15/24 20:43 Sodium Chloride 0.9 % 10 Ml Syringe IV-PUSH 06/13/25 10:28 10 ml PRN PRN Administration Flush Sodium Chloride 0 ml 06/14/24 15:15 Sodium Chloride 0.9 % 10 Ml Syringe IV-PUSH 06/14/25 15:14 PRN PRN Flush Sodium Chloride 10 ml 06/15/24 10:30 06/17/24 09:39 Sodium Chloride 0.9 % 10 Ml Vial.Pf INJECTION 06/15/25 10:29 10 ml DAILY ERNESTINA Administration Sodium Chloride 10 ml 06/15/24 10:10 Sodium Chloride 0.9 % 10 Ml Syringe IV-PUSH 06/15/25 10:09 PRN PRN Flush Spironolactone 25 mg 06/16/24 09:00 06/17/24 09:39 Spironolactone 25 Mg Tablet PO 06/16/25 08:59 25 mg DAILY ERNESTINA Administration Timolol Maleate 1 drops 06/12/24 09:00 06/17/24 09:40 Timolol Mal 0.5% Op Soln 100 Drops/5 Ml Bottle EYE-BOTH 06/12/25 08:59 1 drops DAILY ERNESTINA Administration Warfarin Sodium 1 each 06/16/24 18:34 Warfarin - Pharmacy Dosing MISCELLANE 06/16/25 18:33 PRN PRN zz.Pharmacy Note Warfarin Sodium 5 mg 06/17/24 17:00 Warfarin 5 Mg Tablet PO 06/17/24 17:01 ONCE ONE A&P - Hospitalist Assessment/Plan (1) COVID-19: Plan Documented By: Jaron Hicks MD 06/17/24 1604 Signed By: 06/17/24 1740 [facility]02-07-2025 Progress note Author Reilly Chanel [facility] Note Date/Time June 17, 2024 1 1:47am [facility] [address] [place] [address] Pulmonology Progress Note Signed Patient: Lyric Juarez MR#: [id number] : 1945 Acct:[id number] Age/Sex: 78 / F Adm Date: 5 Loc: Room: [address] [place] [address] Type: ADM IN Attending Dr: Jaorn Hicks MD Copies to: ~ Date of Service: 06/17/2024 Subjective Subjective Narrative: Patient was extubated yesterday and has no significant respiratory complaints. She has good oxygenation on minimal supplemental oxygen. There were no issues overnight per nursing staff. Exam Physical Exam Vital Signs: Temp Pulse Resp BP Pulse Ox O2 Del Method O2 Flow Rate 96.9 F L 80 16 143/71 H 96 Nasal Cannula 2 06/17/24 06:00 06/17/24 07:00 06/17/24 07:00 06/17/24 07:00 06/17/24 07:00 06/17/24 07:00 06/17/24 07:00 FiO2 30 06/16/24 14:00 Const General: cooperative Nutritional Appearance: average body habitus Orientation: alert and awake HEENT Head: normal to inspection Ears: hearing grossly normal bilaterally and external ears normal Nose: external nose normal Face and sinus: normal facial exam Eyes Sclera: sclerae normal Neck Neck: normal visual inspection (right internal jugular central venous catheter with dressing intact) Chest Chest palpation & inspection: normal inspection of the chest Resp Effort & Inspection: normal respiratory effort Auscultation: clear to auscultation bilaterally, diminished lung sounds, no rales, no rhonchi and wheezes expiratory wheezes (bilateral) Cardio Rate: regular rate and tachycardic Rhythm: regular rhythm and abnormal rhythm irregularly irregular Heart Sounds: S1 normal, S2 normal and no murmurs GI Inspection: normal to inspection Palpation: soft and nontender Rectal Exam: deferred General: deferred Skin General: no rashes or lesions noted (Warm and dry) Extrem General: no pedal edema Objective Intake and Output I&O - Last 24 Hours: Intake & Output 06/16/24 06/17/24 06/17/24 23:59 07:59 15:59 Intake Total 150 / 330 300 / 300 Output Total 125 / 1725 225 / 225 Balance 25 / -1395 75 / 75 Weight 81.5 kg Labs 06/17/24 04:39 06/17/24 04:39 Microbiology Micro: Microbiology 3 06/12/24 05:56 Blood Culture - Final Blood - Right Hand NO GROWTH 5 DAYS 06/12/24 06:05 Blood Culture - Final Blood - Left Hand NO GROWTH 5 DAYS Assessment/Plan Assessment/Plan (1) Sepsis: (2) Atrial fibrillation: (3) COVID-19: (4) Acute kidney injury: (5) Bradycardia: (6) Elevated troponin: (7) Hyponatremia: Plan Hospital day #6 for patient admitted for hypotension, atrial fibrillation with RVR with subsequent junctional bradycardia with ischemic cardiomyopathy amenableonly to medical management with incidental finding of COVID positive status. Patient is also noted to have Group B Strep in urine from outside hospital on ceftriaxone. Patient also likely with some component of contrast-induced nephropathy with previously resolving hepatitis felt to be some component of passive congestion with liver function test pending * Patient is extubated and is stable for transfer out of the ICU from a pulmonary/critical care medicine perspective provided patient's hemodynamics are stable with initiation/intensification of goal-directed medical therapy * Patient was encouraged regarding cough and deep breathing to keep airways clear * Will plan on 5 days of antibiotics for group B strep in the urine with cultures negative * Continue supportive care and will likely sign off when patient is transferred out of the ICU * Case discussed with cardiology Documented By: Reilly Chanel MD 5 [id number] Signed By: <Electronically signed by MD Reilly Chanel> 06/17/24 6264 [facility] Work Phone: [phone]) 231-488402-07-2025 Progress note Author Frandy Cabrera [facility] Note Date/Time June 17, 2024 1 0:43am [facility] [address] [place] [address] Cardiology Progress Note Signed Patient: Lyric Juarez MR#: [id number] : 1945 Acct:[id number] Age/Sex: 78 / F Adm Date: 5 Loc: Room: [address] [place] [address] Type: ADM IN Attending Dr: Jaron Hicks MD Copies to: ~ Date of Service: 06/17/2024 Subjective Principal diagnosis: Congestive heart failure/non-ST elevation myocardial infarction Interval history: Ms. Juarez is a 78 year old female with PMH significant for Permanent Afib on Coumadin, follows with Dr Cabrera, HTN, HLD, DM II, CKD who presented to [place] ER for 1 day history of weakness. She denied chest pain, dyspnea, palpitations, light headedness or syncope. She was found to have low grade feverand was in Afib with RVR. She tested positive for COVID and other labs were significant for hyponatremia of 123, serum creatinine of 1.4, lactate of 2.3, troponin [id number]. EKG showed atrial fibrillation with slow VR and a new left bundle branch block. 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 Overnight she had brief episode of syncope and weakness and she was found to be hypotensive with ablood pressure of 60/43. She received 2 L normal saline without improvement andwas transferred to the ICU and started on Levophed. This a.m. she is awake and alert, she denies any chest pain, dyspnea or palpitations. She remains on Levophed at 12 with a MAP of 73. Chest x-ray completed today shows cardiomegaly with left lobe airspace disease and a small left pleural effusion. Echo completed today shows LVEF of 35-40% with wall motion abnormalities suggestive of Takotsubo cardiomyopathy. RVSP 40-50 mmHg. Normal RV size with moderately reduced function. Cardiology follow-up 06/13/2024: Patient is resting comfortably in the ICU. She denies any dyspnea or chest pain. Her blood pressure is now elevated and heart rate exceeded 100 bpm atrial fibrillation. INR is 3.4. She is on heparin drip as well. The patient's renal function is stable except for having low sodium 124 mmol/L. Magnesium 1.6 mg/dL and supplements have been provided. Echocardiogram suggest evidence of severe left ventricular systolic dysfunction with akinesis of the anteroseptal and apical segment. This could be stress cardiomyopathy, however, underlying severe CAD cannot be excluded and therefore coronary angiography is going to be necessary. Since her INR is supratherapeutic the cardiac catheterization has been postponed till tomorrow. Will reverse the Coumadin defect with fresh frozen plasma tomorrow and proceed with cardiac catheterization. The patient is in agreement with the plan. In the meantime we will need to have more aggressive treatment of hypertension and heart rate and because of this metoprolol be resumed and will add spironolactone. Will avoid WADE inhibitors, ARB or ARNI due to hyponatremia. Discussed the case with the patient and with Dr. Chanel Cardiology follow-up 06/14/2024: Patient is getting worse, her work of breathing is getting harder and cannot carry on a conversation with tachypnea. Chest x-ray demonstrated worsening compared to her initial film with more blunting of the costophrenic angles. Poor respiratory effort was noted. Her sodium is downto 223 mmol/L. Her transaminase is 10 times more what it was yesterday, creatinine is rising. Her sodium excretion is diminished. She is becoming moreanxious and remains tachycardic with atrial fibrillation. Despite receiving 2 units of FFP and 5 mg of oral vitamin K her INR has dropped to 2.6 only. Cardiac catheterization therefore could not be carried out. I discussed the case at length with the patient's son and another lady who I believe his and discussed the case at length with Dr. Chanel. Our recommendations were tointubate the patient and sedate her while mechanically ventilated allowing for things to settle down so that we can do cardiac catheterization comfortably and safely tomorrow morning after reversing Coumadin. They agreed and allowed us toproceed with this plan. More FFP will be provided this evening hoping that INR will be less than 2 tomorrow. The cardiac catheterization is tentatively scheduled for 8:00 tomorrow morning. Cardiology follow-up 06/15/2024: Patient was intubated last evening and remained stable overnight. Despite receiving FFP and vitamin K INR today is 2.9. Patient will receive more FFP's and 1 mg intravenous vitamin K today hoping to lower the INR to a safe range. Cardiac catheterization can be performed today. Liver enzymes worsened slightly compared to yesterday. Renal function slightly worsened as well. She remains in atrial fibrillation with controlled rate and her blood pressure is normal. Chest x-ray is unchanged. Potassium was low 2.5 mmol/L and potassium supplement was provided. Sodium level is 25 mmol/L Cardiology follow-up 06/16/2024: Cardiac catheterization yesterday revealed severethree-vessel coronary disease not amenable for PCI or bypass surgery. She remains intubated with a plan to extubate today. She was given dobutamine aftercardiac catheterization which led to hypotension and tachycardia. This has beendiscontinued since. She remains sedated and on the ventilator. Liver function slightly better, renal function slightly worse. Sodium is better at 130 mmol/L and the potassium is down to 2.9 mmol/L. Since the patient is not a candidate for intervention and since her atrial fibrillation is chronic we will be no further attempts to restore normal sinus rhythm. Will initiate vasodilators with hydralazine and nitrates, 1 the sodium level is back to normal we can use standard therapy for systolic heart failure. Will continue spironolactone, beta-blockers, dual antiplatelet therapy and high intensity statin. Hopefully patient can be extubated in the next several hours. Cardiology follow-up 06/17/2024: Patient was extubated last evening and did well. She is awake and alert and denies any complaint of shortness of breath or chest pain. She is in atrial fibrillation with controlled rate and her blood pressureis slightly elevated. Renal function has worsened, liver function test is pending. INR is subtherapeutic still. Potassium is normal and sodium is up to 131 mmol/L. Discussed the case with Dr. Chanel. Will increase hydralazine and nitrates. When the kidney function improves and his sodium level normalizes, first line heart failure therapy will be instituted. Exam Physical Exam Vital Signs: Temp Pulse Resp BP Pulse Ox O2 Del Method O2 Flow Rate 96.9 F L 80 16 143/71 H 96 Nasal Cannula 2 06/17/24 06:00 06/17/24 07:00 06/17/24 07:00 06/17/24 07:00 06/17/24 07:00 06/17/24 08:00 06/17/24 08:00 FiO2 30 06/16/24 14:00 Const General: cooperative, comfortable and no acute distress Nutritional Appearance: overweight Orientation: alert, awake and oriented x3 HEENT Head: normal to inspection, normocephalic and atraumatic Ears: hearing grossly normal bilaterally Nose: external nose normal Face and sinus: normal facial exam Eyes Conjunctivae: conjunctivae normal Neck Neck: trachea midline Neck mass: No Thyroid: thyroid normal Carotids: normal carotid upstroke Resp Effort & Inspection: normal respiratory effort Auscultation: clear to auscultation bilaterally Cardio Jugular venous pressure: no JVD Palpation: normal PMI Rate: regular rate Rhythm: abnormal rhythm irregularly irregular Heart Sounds: S1 normal and S2 normal GI Palpation: soft and no hepatosplenomegaly Auscultation: normal bowel sounds Extrem General: no clubbing, cyanosis or edema Objective Labs 06/17/24 04:39 06/17/24 04:39 Labs: Laboratory Results - last 24 hr 06/15/24 06/16/24 06/16/24 17:58 11:25 17:51 Corrected WBC Uncorrected WBC Count RBC Hgb Hct MCV MCH MCHC RDW Plt Count MPV Neut % (Auto) Lymph % (Auto) [place] % (Auto) Eos % (Auto) Baso % (Auto) Nucleat RBC Rel Count Neut # (Auto) Lymph # (Auto) [place] # (Auto) Eos # (Auto) Baso # (Auto) Band Neutrophils % Lymphocytes % Monocytes % Metamyelocytes % Segmented Neutrophils Nucleated RBCs/100 WBC Reactive Lymphocytes Platelet Estimate Giant Platelets Plt Morphology Comment RBC Morphology Polychromasia Poikilocytosis Ovalocytes Crenated Cell Acanthocytes (Spur) PT INR APTT PHA Creatinine Clear Sodium Potassium Chloride Carbon Dioxide Anion Gap BUN Creatinine Est GFR (CKD-EPI) Glucose POC Glucose 253 290 Calcium Magnesium Hep Bs Antigen Negative Hep Bs Antibody Reactive Hep B Core Total Ab Negative Hepatitis C Ab (EIA) Non reactive Hepatitis C Interp Comment 06/16/24 06/17/24 06/17/24 23:43 04:39 04:39 Corrected WBC 17.1 H Uncorrected WBC Count 17.1 H RBC 3.98 Hgb 12.1 Hct 35.9 MCV 90.1 MCH 30.3 MCHC 33.7 RDW 14.6 Plt Count 280 MPV 9.0 Neut % (Auto) N/A Lymph % (Auto) N/A [place] % (Auto) N/A Eos % (Auto) N/A Baso % (Auto) N/A Nucleat RBC Rel Count N/A Neut # (Auto) N/A Lymph # (Auto) N/A [place] # (Auto) N/A Eos # (Auto) N/A Baso # (Auto) N/A Band Neutrophils % 4 Lymphocytes % 10 L Monocytes % 8 Metamyelocytes % 2 H Segmented Neutrophils 76 H Nucleated RBCs/100 WBC 19 H Reactive Lymphocytes 1 Platelet Estimate Normal Giant Platelets 1 Plt Morphology Comment Normal RBC Morphology N/A Polychromasia Slight Poikilocytosis Moderate Ovalocytes Slight Crenated Cell Moderate Acanthocytes (Spur) Moderate PT 15.4 H INR 1.4 APTT 29.8 PHA Creatinine Clear 22.70 Cancelled Sodium 131 L Potassium Chloride Carbon Dioxide Anion Gap BUN Creatinine Est GFR (CKD-EPI) Glucose POC Glucose 290 Calcium Magnesium Hep Bs Antigen Hep Bs Antibody Hep B Core Total Ab Hepatitis C Ab (EIA) Hepatitis C Interp 06/17/24 06/17/24 06/17/24 04:39 04:39 04:39 Corrected WBC Uncorrected WBC Count RBC Hgb Hct MCV MCH MCHC RDW Plt Count MPV Neut % (Auto) Lymph % (Auto) [place] % (Auto) Eos % (Auto) Baso % (Auto) Nucleat RBC Rel Count Neut # (Auto) Lymph # (Auto) [place] # (Auto) Eos # (Auto) Baso # (Auto) Band Neutrophils % Lymphocytes % Monocytes % Metamyelocytes % Segmented Neutrophils Nucleated RBCs/100 WBC Reactive Lymphocytes Platelet Estimate Giant Platelets Plt Morphology Comment RBC Morphology Polychromasia Poikilocytosis Ovalocytes Crenated Cell Acanthocytes (Spur) PT INR APTT PHA Creatinine Clear Sodium Cancelled Potassium 4.0 Cancelled Chloride 96 L Cancelled Carbon Dioxide 22.5 Anion Gap BUN Creatinine Est GFR (CKD-EPI) Glucose POC Glucose Calcium Magnesium Hep Bs Antigen Hep Bs Antibody Hep B Core Total Ab Hepatitis C Ab (EIA) Hepatitis C Interp 06/17/24 06/17/24 06/17/24 04:39 04:39 04:39 Corrected WBC Uncorrected WBC Count RBC Hgb Hct MCV MCH MCHC RDW Plt Count MPV Neut % (Auto) Lymph % (Auto) [place] % (Auto) Eos % (Auto) Baso % (Auto) Nucleat RBC Rel Count Neut # (Auto) Lymph # (Auto) [place] # (Auto) Eos # (Auto) Baso # (Auto) Band Neutrophils % Lymphocytes % Monocytes % Metamyelocytes % Segmented Neutrophils Nucleated RBCs/100 WBC Reactive Lymphocytes Platelet Estimate Giant Platelets Plt Morphology Comment RBC Morphology Polychromasia Poikilocytosis Ovalocytes Crenated Cell Acanthocytes (Spur) PT INR APTT PHA Creatinine Clear Sodium Potassium Chloride Carbon Dioxide Cancelled Anion Gap 16.5 H Cancelled BUN 58 H Cancelled Creatinine 2.16 H D Est GFR (CKD-EPI) Glucose POC Glucose Calcium Magnesium Hep Bs Antigen Hep Bs Antibody Hep B Core Total Ab Hepatitis C Ab (EIA) Hepatitis C Interp 06/17/24 06/17/24 06/17/24 04:39 04:39 04:39 Corrected WBC Uncorrected WBC Count RBC Hgb Hct MCV MCH MCHC RDW Plt Count MPV Neut % (Auto) Lymph % (Auto) [place] % (Auto) Eos % (Auto) Baso % (Auto) Nucleat RBC Rel Count Neut # (Auto) Lymph # (Auto) [place] # (Auto) Eos # (Auto) Baso # (Auto) Band Neutrophils % Lymphocytes % Monocytes % Metamyelocytes % Segmented Neutrophils Nucleated RBCs/100 WBC Reactive Lymphocytes Platelet Estimate Giant Platelets Plt Morphology Comment RBC Morphology Polychromasia Poikilocytosis Ovalocytes Crenated Cell Acanthocytes (Spur) PT INR APTT PHA Creatinine Clear Sodium Potassium Chloride Carbon Dioxide Anion Gap BUN Creatinine Cancelled Est GFR (CKD-EPI) 22.886 Cancelled Glucose 248 H Cancelled POC Glucose Calcium 9.0 Magnesium Hep Bs Antigen Hep Bs Antibody Hep B Core Total Ab Hepatitis C Ab (EIA) Hepatitis C Interp 06/17/24 04:39 Corrected WBC Uncorrected WBC Count RBC Hgb Hct MCV MCH MCHC RDW Plt Count MPV Neut % (Auto) Lymph % (Auto) [place] % (Auto) Eos % (Auto) Baso % (Auto) Nucleat RBC Rel Count Neut # (Auto) Lymph # (Auto) [place] # (Auto) Eos # (Auto) Baso # (Auto) Band Neutrophils % Lymphocytes % Monocytes % Metamyelocytes % Segmented Neutrophils Nucleated RBCs/100 WBC Reactive Lymphocytes Platelet Estimate Giant Platelets Plt Morphology Comment RBC Morphology Polychromasia Poikilocytosis Ovalocytes Crenated Cell Acanthocytes (Spur) PT INR APTT PHA Creatinine Clear Sodium Potassium Chloride Carbon Dioxide Anion Gap BUN Creatinine Est GFR (CKD-EPI) Glucose POC Glucose Calcium Cancelled Magnesium 2.8 H Hep Bs Antigen Hep Bs Antibody Hep B Core Total Ab Hepatitis C Ab (EIA) Hepatitis C Interp A&P - Cardiology (1) Hyponatremia: Assessment/Problem Details: Level is increased up to 131 mmol/L Plan: Avoid WADE inhibitors/ARB's/ARNI Code(s): E87.1 - Hypo-osmolality and hyponatremia (2) COVID-19: Assessment/Problem Details: No evidence of pneumonia on chest x-ray Plan: Continue present treatment Code(s): U07.1 - COVID-19 (3) Permanent atrial fibrillation: Assessment/Problem Details: heart rate is under control on beta-jaguar Plan: No attempts for bahai of normal sinus rhythm, continue anticoagulation with Coumadin, maintain therapeutic treatment with Lovenox in the interim Code(s): I48.21 - Permanent atrial fibrillation (4) Left ventricular systolic dysfunction: Assessment/Problem Details: Ejection fraction is down to 25?30% due to severe ischemic cardiomyopathy Plan: Due to hyponatremia will avoid WADE inhibitor, ARB and ARNI, continue beta- blockers and spironolactone, uptitrate hydralazine and nitrates due to hypertension Code(s): I51.89 - Other ill-defined heart diseases (5) Non-ST elevation (NSTEMI) myocardial infarction: Assessment/Problem Details: Due to severe coronary artery disease Plan: Dual antiplatelet therapy, high intensity statin, no intervention Code(s): I21.4 - Non-ST elevation (NSTEMI) myocardial infarction (6) Dyslipidemia: Plan: High intensity statin Code(s): E78.5 - Hyperlipidemia, unspecified (7) 3-vessel coronary artery disease: Assessment/Problem Details: Cardiac catheterization revealed 100% occlusion of the proximal right coronary artery, 100% occlusion of the mid LAD and 95% occlusion of the mid left circumflex Plan: Medical therapy, dual antiplatelet therapy, beta-blockers, nitrates and spironolactone along with high intensity statin Code(s): I25.10 - Atherosclerotic heart disease of [place] coronary artery without angina pectoris (8) Elevated liver transaminase level: Assessment/Problem Details: Today's results are pending Plan: Expect improvement, continue to monitor Code(s): R74.01 - Elevation of levels of liver transaminase levels (9) Acute kidney injury: Assessment/Problem Details: Renal function has worsened slightly due to contrast exposure Plan: Continue to monitor on daily basis and avoid nephrotoxic medications Code(s): N17.9 - Acute kidney failure, unspecified (10) Essential hypertension: Plan: Increase hydralazine and nitrates Code(s): I10 - Essential (primary) hypertension Plan Assessment: Septic shock New LV dysfunction EF 35-40%-possible Takotsubo cardiomyopathy. NYHA I symptoms. Euvolemic on exam Elevated troponin [phone]. Possible type II AZ from COVID myocarditis vs Takotsubo cardiomyopathy. Cannot rule out type I AZ. Lactic acidosis Hyponatremia Transaminitis in the setting of shock Permanent A-fib on Coumadin. Currently in slow VR. Hypertension Hyperlipidemia Diabetes type 2 CKD Echo completed today shows LVEF of 35-40% with wall motion abnormalities suggestive of Takotsubo cardiomyopathy. RVSP 40-50 mmHg. Normal RV size with moderately reduced function. Recommendations: - Start heparin gtt for possible ACS. Pt will need ischemic evaluation to r/o CAD once stable from a sepsis standpoint. - Wean Levophed for MAP greater than 65 - Start ASA & Statin. GDMT when BP is stable off pressors. Avoid BB if remains in slow VR. Monitor telemetry for arrhythmias. - Will obtain Mixed venous gas to calculate assumed Enrique cardiac output. Transduce CVP to guide fluid status and management -Given persistent lactic acidosis and increasing pressor requirements, recommendadditional 1 L fluid bolus with close monitoring of sodium and respiratory status. - Sepsis management per ICU team. -Will follow Documented By: Frandy Cabrera MD, [facility] 5 [id number] Signed By: <Electronically signed by MD BEAU Cabrera> 06/17/24 1043 [facility] Work Phone: [phone] 125-990902-07-2025 Progress note Author Elvis Philip [facility] Note Date/Time June 17, 2024 9 :57am [facility] [address] [place] [address] Nephrology Progress Note Signed Patient: Lyric Juarez MR#: [id number] : 1945 Acct:[id number] Age/Sex: 78 / F Adm Date: 5 Loc: Room: [address] [place] [address] Type: ADM IN Attending Dr: Jaron Hicks MD Copies to: ~ Date of Service: 06/17/2024 Subjective Subjective Narrative: This is a 78-year-old female with medical history of atrial fibrillation, HTN, DM, CKD, HLD was presented to the [facility] after a fall. On evaluationin emergency room she was found to have a fever with tachycardia. Her EKG showed A- fib with RVR and was given normal saline fluid boluses to improve her heart rate. She was transferred to the [facility] for sepsis management. Patient after arrival at [facility] was found to have a hypotension with a fall. She was given a normal saline bolus but due to the persistent hypotension she was moved to the intensive care unit and was started on Levophed. She was also given broad-spectrum antibioticsfor sepsis. Patient was also found to have a non-ST elevated AZ and cardiology was consulted. She had echocardiogram which showed EF 35 to 40% moderate pulmonary hypertension and dilated IVC. Cardiology also recommended a cardiac catheterization. Patient was also found to have a hyponatremia with serum sodium 123 to 124 mmol/L. She was given Bumex to improve her respiratory status. Nephrology is consulted for her hyponatremia management and CARMEN and risk stratification and prophylaxis. Patient underwent cardiac catheterization on 06/15/2024 and was found to have a three-vessel disease. Patient is not a suitable candidate for PCI or CABG. Cardiology recommended medical management. Interim history Patient was seen and examined at bedside. She was successfully extubated yesterday. She denies any chest pain palpation cough nausea vomit diarrhea and shortness of breath. Exam Physical Exam Vital Signs: Temp Pulse Resp BP Pulse Ox O2 Del Method O2 Flow Rate 96.9 F L 80 16 143/71 H 96 Nasal Cannula 2 06/17/24 06:00 06/17/24 07:00 06/17/24 07:00 06/17/24 07:00 06/17/24 07:00 06/17/24 07:00 06/17/24 07:00 FiO2 30 06/16/24 14:00 Narrative: General: Appears comfortable and not in distress Heart: S1-S2, no rub Lung: Bilateral air entry, no wheezing or crackles Abdomen: Soft, positive bowel sounds Extremities: No edema, no cyanosis Head: Atraumatic, normocephalic Ear: No gross hearing Deficit or external ear redness Eyes: No pallor or redness Neck: No JVD or visible mass Skin: No rashes , warm to touch [place] FILLER: Awake,Alert, following simple command Musculoskeletal: No swelling or limitation of movement of the large joints Psychiatric: Cooperative, normal mood and affect Objective Intake and Output I&O: Intake & Output 06/14/24 06/15/24 06/16/24 06/17/24 23:59 23:59 23:59 23:59 Intake Total 1375 / 1375 1640 / 1640 330 / 330 300 / 300 Output Total 1650 / 1650 2275 / 2275 1725 / 1725 225 / 225 Balance -275 / -275 -635 / -635 -1395 / -1395 75 / 75 Weight 80.2 kg 80.2 kg 82 kg 81.5 kg Meds and Allergies Meds: Active Medications Acetaminophen (Acetaminophen 325 Mg Tablet) 650 mg PO Q6HR PRN PRN Reason: Pain Scale 1 - 3 or fever Stop: 06/12/25 00:33 Last Admin: 06/17/24 00:10 Dose: 650 mg Albuterol/Ipratropium (Ipratropium/Albuterol 0.5-3 Mg 3 Ml Ampul.Neb) 3 ml INHALATION Q6H PRN PRN Reason: SOB OR WHEEZING Stop: 06/12/25 18:14 Last Admin: 06/13/24 08:53 Dose: 3 ml Aspirin (Aspirin 81 Mg Tab.Chew) 81 mg PO DAILY [facility] Stop: 06/12/25 09:59 Last Admin: 06/17/24 09:39 Dose: 81 mg Atorvastatin Calcium (Atorvastatin 80 Mg Tablet) 80 mg PO QPM ERNESTINA Stop: 06/16/25 20:59 Last Admin: 06/16/24 22:08 Dose: Not Given Benzonatate (Benzonatate 100 Mg Capsule) 200 mg PO TID PRN PRN Reason: Cough Stop: 06/12/25 18:16 Last Admin: 06/13/24 17:54 Dose: 200 mg Chlorhexidine Gluconate (Chlorhexidine Gluconate 0.12% 15 Ml Udc) 15 ml MUCOUS MEM BID ERNESTINA Stop: 06/14/25 20:59 Last Admin: 06/16/24 22:08 Dose: Not Given Clopidogrel Bisulfate (Clopidogrel Bisulfate 75 Mg Tablet) 75 mg PO DAILY [facility] Stop: 06/14/25 08:59 Last Admin: 06/17/24 09:39 Dose: 75 mg Dextrose (Dextrose 50% In Water 25 Gm/50 Ml Syringe) 0 gm IV-PUSH PRN PRN PRN Reason: Hypoglycemia Stop: 06/12/25 00:39 Dorzolamide HCl (Dorzolamide 2% Op Soln 200 Drops/10 Ml Bottle) 1 drops EYE-BOTH DAILY [facility] Stop: 06/12/25 08:59 Last Admin: 06/17/24 09:40 Dose: 1 drops Enoxaparin Sodium (Enoxaparin 80 Mg/0.8 Ml Syringe) 80 mg SUBCUT DAILY [facility] Stop: 06/17/25 08:59 Glucose (Dextrose 40% Gel 15 Gm Tube) 0 gm PO PRN PRN PRN Reason: Hypoglycemia Stop: 06/12/25 00:39 Hydralazine HCl (Hydralazine 25 Mg Tablet) 25 mg PO BID [facility] Stop: 06/16/25 20:59 Last Admin: 06/17/24 09:39 Dose: 25 mg Magnesium Sulfate (Magnesium Sulf 2gm-*Swfi*) 2 gm in 50 mls @ 25 mls/hr IV DAILY PRN PRN Reason: Magnesium Level < 1.5 Stop: 06/12/25 00:33 Last Infusion: 06/13/24 19:00 Dose: Infused Sodium Chloride (0.9% Sodium Chloride 500 Ml) 500 mls @ 0 mls/hr IV .Q0M [facility] Stop: 06/12/25 12:59 Last Admin: 06/14/24 09:39 Dose: 10 mls/hr Ceftriaxone Sodium (Rocephin) 1 gm in 50 mls @ 100 mls/hr IV Q24H [facility] Last Admin: 06/16/24 13:50 Dose: 100 mls/hr Insulin Aspart (Insulin Aspart 300 Units/3 Ml) 0 units SUBCUT Q6HR [facility]; Protocol Stop: 06/14/25 17:59 Last Admin: 06/17/24 06:15 Dose: 2 units Isosorbide Mononitrate (Isosorbide Mononitrate 24hr Er 30 Mg Tab.Er.24h) 30 mg PO DAILY.6A [facility] Stop: 06/17/25 05:59 Last Admin: 06/17/24 06:15 Dose: 30 mg Melatonin (Melatonin 5 Mg Tablet) 5 mg PO QHS [facility] Stop: 06/13/25 21:59 Last Admin: 06/16/24 22:08 Dose: Not Given Metoprolol Tartrate (Metoprolol Tartrate 25 Mg Tablet) 25 mg PO BID [facility] Stop: 06/13/25 09:34 Last Admin: 06/17/24 09:39 Dose: 25 mg Metoprolol Tartrate (Metoprolol Tartrate 5 Mg/5 Ml Vial) 5 mg IV-PUSH Q6H PRN PRN Reason: Heart Rate- High Stop: 06/13/25 15:19 Last Admin: 06/14/24 00:00 Dose: 5 mg Miscellaneous Information (Consult To Pharmacy) 1 each MISCELLANE .PHACONSULT PRN; Protocol PRN Reason: ZZ.Pharmacy Consult Stop: 06/17/24 13:20 Morphine Sulfate (Morphine Sulfate 4 Mg/Ml Cartridge) 4 mg IV-PUSH Q20M PRN PRN Reason: Chest Pain Nitroglycerin (Nitroglycerin 0.4 Mg Tab.Subl) 0.4 mg SUBLINGUAL Q5M PRN PRN Reason: Chest Pain Stop: 06/15/25 13:20 Ondansetron HCl (Ondansetron 4 Mg/2 Ml Vial) 4 mg IV-PUSH Q8H PRN PRN Reason: Nausea And Vomiting Stop: 06/12/25 00:33 Last Admin: 06/16/24 18:49 Dose: 4 mg Ondansetron HCl (Ondansetron 4 Mg/2 Ml Vial) 4 mg IV-PUSH Q6H PRN PRN Reason: Nausea And Vomiting Stop: 06/15/25 13:20 Pantoprazole Sodium (Pantoprazole 40 Mg Vial) 40 mg IV-PUSH DAILY [facility] Stop: 06/15/25 10:29 Last Admin: 06/17/24 09:39 Dose: 40 mg Potassium Chloride (Potassium Chloride Er 20 Meq Tab.Er.Prt) 20 meq PO DAILY PRN PRN Reason: Hypokalemia Stop: 06/12/25 00:33 Last Admin: 06/13/24 06:43 Dose: 20 meq Potassium Chloride (Potassium Chloride Er 20 Meq Tab.Er.Prt) 40 meq PO DAILY PRN PRN Reason: Hypokalemia Stop: 06/12/25 00:33 Potassium Chloride (Potassium Chloride Er 20 Meq Tab.Er.Prt) 40 meq PO STAT PRN PRN Reason: Hypokalemia Potassium Chloride (Potassium Chloride Liquid 20 Meq/15 Ml Udc) 40 meq PO DAILYPRN PRN Reason: Hypokalemia Stop: 06/15/25 06:42 Last Admin: 06/16/24 05:23 Dose: 40 meq Sodium Chloride (Sodium Chloride 0.9 % 10 Ml Syringe) 0 ml IV-PUSH PRN PRN PRN Reason: Flush Stop: 06/13/25 10:28 Last Admin: 06/15/24 20:43 Dose: 10 ml Sodium Chloride (Sodium Chloride 0.9 % 10 Ml Syringe) 0 ml IV-PUSH PRN PRN PRN Reason: Flush Stop: 06/14/25 15:14 Sodium Chloride (Sodium Chloride 0.9 % 10 Ml Vial.Pf) 10 ml INJECTION DAILY ERNESTINA Stop: 06/15/25 10:29 Last Admin: 06/17/24 09:39 Dose: 10 ml Sodium Chloride (Sodium Chloride 0.9 % 10 Ml Syringe) 10 ml IV-PUSH PRN PRN PRN Reason: Flush Stop: 06/15/25 10:09 Spironolactone (Spironolactone 25 Mg Tablet) 25 mg PO DAILY ERNESTINA Stop: 06/16/25 08:59 Last Admin: 06/17/24 09:39 Dose: 25 mg Timolol Maleate (Timolol Mal 0.5% Op Soln 100 Drops/5 Ml Bottle) 1 drops EYE- BOTH DAILY ERNESTINA Stop: 06/12/25 08:59 Last Admin: 06/17/24 09:40 Dose: 1 drops Warfarin Sodium (Warfarin - Pharmacy Dosing) 1 each MISCELLANE PRN PRN PRN Reason: zz.Pharmacy Note Stop: 06/16/25 18:33 Warfarin Sodium (Warfarin 5 Mg Tablet) 5 mg PO DAILY.5P ERNESTINA Stop: 06/17/25 16:59 Allergies flecainide Allergy (Unknown, Verified 05/17/24 08:07) Hives Results - Nephrology Labs 06/17/24 04:39 06/17/24 04:39 Labs: 06/17/24 06/17/24 06/17/24 04:39 04:39 04:39 BUN 58 H Cancelled Creatinine 2.16 H D Cancelled Radiology Impressions Impressions - last 24 hours: Any impression(s) listed above is documentation that was entered by the reading physician into a diagnostic report(s) for Lyric Juarez. I have reviewed the report(s) and am incorporating any findings in the treatment plan of this patient where applicable. A&P - Nephrology Assessment/Plan (1) Acute kidney injury superimposed on CKD: Assessment/Problem Details: She likely has an KARIS due to the CARMEN. Her renal function has been declining. 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 Her serum sodium within acceptable range. (3) CKD stage 3a, GFR 45-59 ml/min: Assessment/Problem Details: She has a CKD due to the DM and HTN with baseline serum creatinine around 1.1 mg/dL. Her renal function initially was worse due to the hypotension but improved with optimization of her hemodynamics. (4) Hypokalemia: Assessment/Problem Details: She had hypokalemia due to the diuretic induced renal potassium wasting. Her potassium is back to normal with oral and IV replacement. (5) Non-ST elevation (NSTEMI) myocardial infarction: Assessment/Problem Details: Patient also diagnosed to have a AZ. She was found to have a three-vessel disease. Medical management was recommended by cardiology. (6) Sepsis: Assessment/Problem Details: Patient presented with a sepsis and initially required vasopressors. She is offthe vasopressors and currently on broad-spectrum antibiotic. (7) COVID-19: Assessment/Problem Details: Patient has COVID-19 infection. She is currently on steroids. Pulmonary has been following the patient. (8) Atrial fibrillation: Assessment/Problem Details: Patient has atrial fibrillation. Currently on metoprolol. Plan * Her serum creatinine slightly went up and her urine output has dropped. Will continue to monitor renal function closely. * Her serum sodium is within the acceptable range. No need for 3% saline. * Continue IV antibiotic. Pharmacy to dose medication based on EGFR. * Continue management of COVID-19 infection and sporty failure as per pulmonary. * Continue management of CAD and A-fib as per cardiology. * Check renal function daily and monitor serum sodium closely * Monitor input output Daily and daily weight. * Documented By: Elvis Philip MD 06/17/24 0951 Signed By: <Electronically signed by Elvis Philip MD> 06/17/24 0957 [facility] Work Phone: [phone] 392-507502-07-2025 [place] [address] Pulmonology Progress Note Signed Patient: Lyric Juarez MR#: [id number] : 1945 Acct:[id number] Age/Sex: 78 / F Adm Date: 5 Loc: Room: [address] [place] [address] Type: ADM IN Attending Dr: Jaron Hicks MD Copies to: ~ Date of Service: 06/17/2024 Subjective Subjective Narrative: Patient was extubated yesterday and has no significant respiratory complaints. She has good oxygenation on minimal supplemental oxygen. There were no issues overnight per nursing staff. Exam Physical Exam Vital Signs: Temp Pulse Resp BP Pulse Ox O2 Del Method O2 Flow Rate 96.9 F L 80 16 143/71 H 96 Nasal Cannula 2 06/17/24 06:00 06/17/24 07:00 06/17/24 07:00 06/17/24 07:00 06/17/24 07:00 06/17/24 07:00 06/17/24 07:00 FiO2 30 06/16/24 14:00 Const General: cooperative Nutritional Appearance: average body habitus Orientation: alert and awake HEENT Head: normal to inspection Ears: hearing grossly normal bilaterally and external ears normal Nose: external nose normal Face and sinus: normal facial exam Eyes Sclera: sclerae normal Neck Neck: normal visual inspection (right internal jugular central venous catheter with dressing intact) Chest Chest palpation & inspection: normal inspection of the chest Resp Effort & Inspection: normal respiratory effort Auscultation: clear to auscultation bilaterally, diminished lung sounds, no rales, no rhonchi and wheezes expiratory wheezes (bilateral) Cardio Rate: regular rate and tachycardic Rhythm: regular rhythm and abnormal rhythm irregularly irregular Heart Sounds: S1 normal, S2 normal and no murmurs GI Inspection: normal to inspection Palpation: soft and nontender Rectal Exam: deferred General: deferred Skin General: no rashes or lesions noted (Warm and dry) Extrem General: no pedal edema Objective Intake and Output I&O - Last 24 Hours: Intake & Output 06/16/24 06/17/24 06/17/24 23:59 07:59 15:59 Intake Total 150 / 330 300 / 300 Output Total 125 / 1725 225 / 225 Balance 25 / -1395 75 / 75 Weight 81.5 kg Labs 06/17/24 04:39 06/17/24 04:39 Microbiology Micro: Microbiology 3 06/12/24 05:56 Blood Culture - Final Blood - Right Hand NO GROWTH 5 DAYS 06/12/24 06:05 Blood Culture - Final Blood - Left Hand NO GROWTH 5 DAYS Assessment/Plan Assessment/Plan (1) Sepsis: (2) Atrial fibrillation: (3) COVID-19: (4) Acute kidney injury: (5) Bradycardia: (6) Elevated troponin: (7) Hyponatremia: Plan Hospital day #6 for patient admitted for hypotension, atrial fibrillation with RVR with subsequent junctional bradycardia with ischemic cardiomyopathy amenableonly to medical management with incidental finding of COVID positive status. Patient is also noted to have Group B Strep in urine from outside hospital on ceftriaxone. Patient also likely with some component of contrast- induced nephropathy with previously resolving hepatitis felt to be some component of passive congestion with liver function test pending * Patient is extubated and is stable for transfer out of the ICU from a pulmonary/critical care medicine perspective provided patient's hemodynamics are stable with initiation/intensification of goal-directed medical therapy * Patient was encouraged regarding cough and deep breathing to keep airways clear * Will plan on 5 days of antibiotics for group B strep in the urine with cultures negative * Continue supportive care and will likely sign off when patient is transferred out of the ICU * Case discussed with cardiology Documented By: Reilly Chanel MD 5 0841 Signed By: 06/17/[address] [place], [place] 1409102-07-2025 [place] [address] Cardiology Progress Note Signed Patient: Lyric Juarez MR#: [id number] : 1945 Acct:[id number] Age/Sex: 78 / F Adm Date: 5 Loc: Room: [address] [place] [address] Type: ADM IN Attending Dr: Jaron Hicks MD Copies to: ~ Date of Service: 06/17/2024 Subjective Principal diagnosis: Congestive heart failure/non-ST elevation myocardial infarction Interval history: Ms. Juarez is a 78 year old female with PMH significant for Permanent Afib on Coumadin, follows with Dr Cabrera, HTN, HLD, DM II, CKD who presented to [place] ER for 1 day history of weakness. She denied chest pain, dyspnea, palpitations, light headedness or syncope. She was found to have low grade feverand was in Afib with RVR. She tested positive for COVID and other labs were significant for hyponatremia of 123, serum creatinine of 1.4, lactate of 2.3, troponin [id number]. EKG showed atrial fibrillation with slow VR and a new left bundle branch block. 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 Overnight she had brief episode of syncope and weakness and she was found to be hypotensive with ablood pressure of 60/43. She received 2 L normal saline without improvement andwas transferred to the ICU and started on Levophed. This a.m. she is awake and alert, she denies any chest pain, dyspnea or palpitations. She remains on Levophed at 12 with a MAP of 73. Chest x-ray completed today shows cardiomegaly with left lobe airspace disease and a small left pleural effusion. Echo completed today shows LVEF of 35-40% with wall motion abnormalities suggestive of Takotsubo cardiomyopathy. RVSP 40-50 mmHg. Normal RV size with moderately reduced function. Cardiology follow-up 06/13/2024: Patient is resting comfortably in the ICU. She denies any dyspnea orchest pain. Her blood pressure is now elevated and heart rate exceeded 100 bpm atrial fibrillation.INR is 3.4. She is on heparin drip as well. The patient's renal function is stable except for having low sodium 124 mmol/L. Magnesium 1.6 mg/dL and supplements have been provided. Echocardiogram suggest evidence of severe left ventricular systolic dysfunction with akinesis of the anteroseptal and apical segment. This could be stress cardiomyopathy, however, underlying severe CAD cannot be excluded and therefore coronary angiography is going to be necessary. Since her INR is supratherapeutic the cardiac catheterization has been postponed till tomorrow. Will reverse the Coumadin defect with fresh frozen plasma tomorrow and proceed with cardiac catheterization. The patient is in agreement withthe plan. In the meantime we will need to have more aggressive treatment of hypertension and heart rate and because of this metoprolol be resumed and will add spironolactone. Will avoid WADE inhibitors, ARB or ARNI due to hyponatremia. Discussed the case with the patient and with Dr. Chanel Cardiology follow-up 06/14/2024: Patient is getting worse, her work of breathing is getting harder and cannot carry on a conversation with tachypnea. Chest x-ray demonstrated worsening compared to her initial film with more blunting of the costophrenic angles. Poor respiratory effort was noted. Her sodium is downto 223 mmol/L. Her transaminase is 10 times more what it was yesterday, creatinine is rising. Her sodium excretion is diminished. She is becoming moreanxious and remains tachycardic with atrial fibrillation. Despite receiving 2 units of FFP and 5 mg of oral vitamin K her INR has droppedto 2.6 only. Cardiac catheterization therefore could not be carried out. I discussed the case at [facility] with the patient's son and another lady who I believe his and discussed the case at lengthwith Dr. Chanel. Our recommendations were tointubate the patient and sedate her while mechanically ventilated allowing for things to settle down so that we can do cardiac catheterization comfortably and safely tomorrow morning after reversing Coumadin. They agreed and allowed us toproceed with this plan. More FFP will be provided this evening hoping that INR will be less than 2 tomorrow. The cardiac catheterization is tentatively scheduled for 8:00 tomorrow morning. Cardiology follow-up 06/15/2024: Patient was intubated last evening and remained stable overnight. Despite receiving FFP and vitamin K INR today is 2.9. Patient will receive more FFP's and 1 mg intravenous vitamin K today hoping to lower the INR to a safe range. Cardiac catheterization can be performed today. Liver enzymes worsened slightly compared to yesterday. Renal function slightly worsened aswell. She remains in atrial fibrillation with controlled rate and her blood pressure is normal. Chest x-ray is unchanged. Potassium was low 2.5 mmol/L and potassium supplement was provided. Sodium level is 25 mmol/L Cardiology follow-up 06/16/2024: Cardiac catheterization yesterday revealed severethree-vessel coronary disease not amenable for PCI or bypass surgery. She remains intubated with a plan to extubate today. She was given dobutamine aftercardiac catheterization which led to hypotension and tachycardia. This has beendiscontinued since. She remains sedated and on the ventilator. Liver function slightly better, renal function slightly worse. Sodium is better at 130 mmol/L and the potassium is down to 2.9 mmol/L. Since the patient is not a candidate for intervention and since her atrial fibrillation is chronic we will be no further attempts to restore normal sinus rhythm. Will initiate vasodilators with hydralazine and nitrates, 1 the sodium level is back to normal we can use standard therapy for systolic heart failure. Will continue spironolactone, beta-blockers, dual antiplatelet therapy and high intensity statin. Hopefully patient can be extubated in the next several hours. Cardiology follow-up 06/17/2024: Patient was extubated last evening and did well. She is awake and alert and denies any complaint of shortness of breath or chest pain. She is in atrial fibrillation with controlled rate and her blood pressureis slightly elevated. Renal function has worsened, liver function test is pending. INR is subtherapeutic still. Potassium is normal and sodium is up to 131 mmol/L. Discussed the case with Dr. Chanel. Will increase hydralazine and nitrates. When the kidney function improves and his sodium level normalizes, first line heart failure therapy will be instituted. Exam Physical Exam Vital Signs: Temp Pulse Resp BP Pulse Ox O2 Del Method O2 Flow Rate 96.9 F L 80 16 143/71 H 96 Nasal Cannula 2 06/17/24 06:00 06/17/24 07:00 06/17/24 07:00 06/17/24 07:00 06/17/24 07:00 06/17/24 08:00 06/17/24 08:00 FiO2 30 06/16/24 14:00 Const General: cooperative, comfortable and no acute distress Nutritional Appearance: overweight Orientation: alert, awake and oriented x3 HEENT Head: normal to inspection, normocephalic and atraumatic Ears: hearing grossly normal bilaterally Nose: external nose normal Face and sinus: normal facial exam Eyes Conjunctivae: conjunctivae normal Neck Neck: trachea midline Neck mass: No Thyroid: thyroid normal Carotids: normal carotid upstroke Resp Effort & Inspection: normal respiratory effort Auscultation: clear to auscultation bilaterally Cardio Jugular venous pressure: no JVD Palpation: normal PMI Rate: regular rate Rhythm: abnormal rhythm irregularly irregular Heart Sounds: S1 normal and S2 normal GI Palpation: soft and no hepatosplenomegaly Auscultation: normal bowel sounds Extrem General: no clubbing, cyanosis or edema Objective Labs 06/17/24 04:39 06/17/24 04:39 Labs: Laboratory Results - last 24 hr 06/15/24 06/16/24 06/16/24 17:58 11:25 17:51 Corrected WBC Uncorrected WBC Count RBC Hgb Hct MCV MCH MCHC RDW Plt Count MPV Neut % (Auto) Lymph % (Auto) [place] % (Auto) Eos % (Auto) Baso % (Auto) Nucleat RBC Rel Count Neut # (Auto) Lymph # (Auto) [place] # (Auto) Eos # (Auto) Baso # (Auto) Band Neutrophils % Lymphocytes % Monocytes % Metamyelocytes % Segmented Neutrophils Nucleated RBCs/100 WBC Reactive Lymphocytes Platelet Estimate Giant Platelets Plt Morphology Comment RBC Morphology Polychromasia Poikilocytosis Ovalocytes Crenated Cell Acanthocytes (Spur) PT INR APTT PHA Creatinine Clear Sodium Potassium Chloride Carbon Dioxide Anion Gap BUN Creatinine Est GFR (CKD-EPI) Glucose POC Glucose 253 290 Calcium Magnesium Hep Bs Antigen Negative Hep Bs Antibody Reactive Hep B Core Total Ab Negative Hepatitis C Ab (EIA) Non reactive Hepatitis C Interp Comment 06/16/24 06/17/24 06/17/24 23:43 04:39 04:39 Corrected WBC 17.1 H Uncorrected WBC Count 17.1 H RBC 3.98 Hgb 12.1 Hct 35.9 MCV 90.1 MCH 30.3 MCHC 33.7 RDW 14.6 Plt Count 280 MPV 9.0 Neut % (Auto) N/A Lymph % (Auto) N/A [place] % (Auto) N/A Eos % (Auto) N/A Baso % (Auto) N/A Nucleat RBC Rel Count N/A Neut # (Auto) N/A Lymph # (Auto) N/A [place] # (Auto) N/A Eos # (Auto) N/A Baso # (Auto) N/A Band Neutrophils % 4 Lymphocytes % 10 L Monocytes % 8 Metamyelocytes % 2 H Segmented Neutrophils 76 H Nucleated RBCs/100 WBC 19 H Reactive Lymphocytes 1 Platelet Estimate Normal Giant Platelets 1 Plt Morphology Comment Normal RBC Morphology N/A Polychromasia Slight Poikilocytosis Moderate Ovalocytes Slight Crenated Cell Moderate Acanthocytes (Spur) Moderate PT 15.4 H INR 1.4 APTT 29.8 PHA Creatinine Clear 22.70 Cancelled Sodium 131 L Potassium Chloride Carbon Dioxide Anion Gap BUN Creatinine Est GFR (CKD-EPI) Glucose POC Glucose 290 Calcium Magnesium Hep Bs Antigen Hep Bs Antibody Hep B Core Total Ab Hepatitis C Ab (EIA) Hepatitis C Interp 06/17/24 06/17/24 06/17/24 04:39 04:39 04:39 Corrected WBC Uncorrected WBC Count RBC Hgb Hct MCV MCH MCHC RDW Plt Count MPV Neut % (Auto) Lymph % (Auto) [place] % (Auto) Eos % (Auto) Baso % (Auto) Nucleat RBC Rel Count Neut # (Auto) Lymph # (Auto) [place] # (Auto) Eos # (Auto) Baso # (Auto) Band Neutrophils % Lymphocytes % Monocytes % Metamyelocytes % Segmented Neutrophils Nucleated RBCs/100 WBC Reactive Lymphocytes Platelet Estimate Giant Platelets Plt Morphology Comment RBC Morphology Polychromasia Poikilocytosis Ovalocytes Crenated Cell Acanthocytes (Spur) PT INR APTT PHA Creatinine Clear Sodium Cancelled Potassium 4.0 Cancelled Chloride 96 L Cancelled Carbon Dioxide 22.5 Anion Gap BUN Creatinine Est GFR (CKD-EPI) Glucose POC Glucose Calcium Magnesium Hep Bs Antigen Hep Bs Antibody Hep B Core Total Ab Hepatitis C Ab (EIA) Hepatitis C Interp 06/17/24 06/17/24 06/17/24 04:39 04:39 04:39 Corrected WBC Uncorrected WBC Count RBC Hgb Hct MCV MCH MCHC RDW Plt Count MPV Neut % (Auto) Lymph % (Auto) [place] % (Auto) Eos % (Auto) Baso % (Auto) Nucleat RBC Rel Count Neut # (Auto) Lymph # (Auto) [place] # (Auto) Eos # (Auto) Baso # (Auto) Band Neutrophils % Lymphocytes % Monocytes % Metamyelocytes % Segmented Neutrophils Nucleated RBCs/100 WBC Reactive Lymphocytes Platelet Estimate Giant Platelets Plt Morphology Comment RBC Morphology Polychromasia Poikilocytosis Ovalocytes Crenated Cell Acanthocytes (Spur) PT INR APTT PHA Creatinine Clear Sodium Potassium Chloride Carbon Dioxide Cancelled Anion Gap 16.5 H Cancelled BUN 58 H Cancelled Creatinine 2.16 H D Est GFR (CKD-EPI) Glucose POC Glucose Calcium Magnesium Hep Bs Antigen Hep Bs Antibody Hep B Core Total Ab Hepatitis C Ab (EIA) Hepatitis C Interp 06/17/24 06/17/24 06/17/24 04:39 04:39 04:39 Corrected WBC Uncorrected WBC Count RBC Hgb Hct MCV MCH MCHC RDW Plt Count MPV Neut % (Auto) Lymph % (Auto) [place] % (Auto) Eos % (Auto) Baso % (Auto) Nucleat RBC Rel Count Neut # (Auto) Lymph # (Auto) [place] # (Auto) Eos # (Auto) Baso # (Auto) Band Neutrophils % Lymphocytes % Monocytes % Metamyelocytes % Segmented Neutrophils Nucleated RBCs/100 WBC Reactive Lymphocytes Platelet Estimate Giant Platelets Plt Morphology Comment RBC Morphology Polychromasia Poikilocytosis Ovalocytes Crenated Cell Acanthocytes (Spur) PT INR APTT PHA Creatinine Clear Sodium Potassium Chloride Carbon Dioxide Anion Gap BUN Creatinine Cancelled Est GFR (CKD-EPI) 22.886 Cancelled Glucose 248 H Cancelled POC Glucose Calcium 9.0 Magnesium Hep Bs Antigen Hep Bs Antibody Hep B Core Total Ab Hepatitis C Ab (EIA) Hepatitis C Interp 06/17/24 04:39 Corrected WBC Uncorrected WBC Count RBC Hgb Hct MCV MCH MCHC RDW Plt Count MPV Neut % (Auto) Lymph % (Auto) [place] % (Auto) Eos % (Auto) Baso % (Auto) Nucleat RBC Rel Count Neut # (Auto) Lymph # (Auto) [place] # (Auto) Eos # (Auto) Baso # (Auto) Band Neutrophils % Lymphocytes % Monocytes % Metamyelocytes % Segmented Neutrophils Nucleated RBCs/100 WBC Reactive Lymphocytes Platelet Estimate Giant Platelets Plt Morphology Comment RBC Morphology Polychromasia Poikilocytosis Ovalocytes Crenated Cell Acanthocytes (Spur) PT INR APTT PHA Creatinine Clear Sodium Potassium Chloride Carbon Dioxide Anion Gap BUN Creatinine Est GFR (CKD-EPI) Glucose POC Glucose Calcium Cancelled Magnesium 2.8 H Hep Bs Antigen Hep Bs Antibody Hep B Core Total Ab Hepatitis C Ab (EIA) Hepatitis C Interp A&P - Cardiology (1) Hyponatremia: Assessment/Problem Details: Level is increased up to 131 mmol/L Plan: Avoid WADE inhibitors/ARB's/ARNI Code(s): E87.1 - Hypo-osmolality and hyponatremia (2) COVID-19: Assessment/Problem Details: No evidence of pneumonia on chest x-ray Plan: Continue present treatment Code(s): U07.1 - COVID-19 (3) Permanent atrial fibrillation: Assessment/Problem Details: heart rate is under control on beta-jaguar Plan: No attempts for bahai of normal sinus rhythm, continue anticoagulation with Coumadin, maintain therapeutic treatment with Lovenox in the interim Code(s): I48.21 - Permanent atrial fibrillation (4) Left ventricular systolic dysfunction: Assessment/Problem Details: Ejection fraction is down to 25?30% due to severe ischemic cardiomyopathy Plan: Due to hyponatremia will avoid WADE inhibitor, ARB and ARNI, continue beta- blockers and spironolactone, uptitrate hydralazine and nitrates due to hypertension Code(s): I51.89 - Other ill-defined heart diseases (5) Non-ST elevation (NSTEMI) myocardial infarction: Assessment/Problem Details: Due to severe coronary artery disease Plan: Dual antiplatelet therapy, high intensity statin, no intervention Code(s): I21.4 - Non-ST elevation (NSTEMI) myocardial infarction (6) Dyslipidemia: Plan: High intensity statin Code(s): E78.5 - Hyperlipidemia, unspecified (7) 3-vessel coronary artery disease: Assessment/Problem Details: Cardiac catheterization revealed 100% occlusion of the proximal right coronary artery, 100% occlusion of the mid LAD and 95% occlusion of the mid left circumflex Plan: Medical therapy, dual antiplatelet therapy, beta-blockers, nitrates and spironolactone along with high intensity statin Code(s): I25.10 - Atherosclerotic heart disease of [place] coronary artery without angina pectoris (8) Elevated liver transaminase level: Assessment/Problem Details: Today's results are pending Plan: Expect improvement, continue to monitor Code(s): R74.01 - Elevation of levels of liver transaminase levels (9) Acute kidney injury: Assessment/Problem Details: Renal function has worsened slightly due to contrast exposure Plan: Continue to monitor on daily basis and avoid nephrotoxic medications Code(s): N17.9 - Acute kidney failure, unspecified (10) Essential hypertension: Plan: Increase hydralazine and nitrates Code(s): I10 - Essential (primary) hypertension Plan Assessment: Septic shock New LV dysfunction EF 35-40%-possible Takotsubo cardiomyopathy. NYHA I symptoms. Euvolemic on exam Elevated troponin [id number]. Possible type II AZ from COVID myocarditis vs Takotsubo cardiomyopathy. Cannot rule out type I AZ. Lactic acidosis Hyponatremia Transaminitis in the setting of shock Permanent A-fib on Coumadin. Currently in slow VR. Hypertension Hyperlipidemia Diabetes type 2 CKD Echo completed today shows LVEF of 35-40% with wall motion abnormalities suggestive of Takotsubo cardiomyopathy. RVSP 40-50 mmHg. Normal RV size with moderately reduced function. Recommendations: - Start heparin gtt for possible ACS. Pt will need ischemic evaluation to r/o CAD once stable from a sepsis standpoint. - Wean Levophed for MAP greater than 65 - Start ASA & Statin. GDMT when BP is stable off pressors. Avoid BB if remains in slow VR. Monitor telemetry for arrhythmias. - Will obtain Mixed venous gas to calculate assumed Enrique cardiac output. Transduce CVP to guide fluid status and management -Given persistent lactic acidosis and increasing pressor requirements, recommendadditional 1 L fluid bolus with close monitoring of sodium and respiratory status. - Sepsis management per ICU team. -Will follow Documented By: Frandy Cabrera MD, FACC [id number] Signed By: 06/17/24 1043 [facility]02-07-2025 [place] [address] Nephrology Progress Note Signed Patient: Lyric Juarez MR#: [id number] : 1945 Acct:[id number] Age/Sex: 78 / F Adm Date: 5 Loc: Room: 7H7819-3 Type: ADM IN Attending Dr: Jaron Hicks MD Copies to: ~ Date of Service: 06/17/2024 Subjective Subjective Narrative: This is a 78-year-old female with medical history of atrial fibrillation, HTN, DM, CKD, HLD was presented to the [facility] after a fall. On evaluationin emergency room she was found to have afever with tachycardia. Her EKG showed A-fib with RVR and was given normal saline fluid boluses to improve her heart rate. She was transferred to the [facility] for sepsis management. Patient after arrival at [facility] was found to have a hypotension with a fall. She was given a normal saline bolus but due to the persistent hypotension she was moved to the intensive care unit and was started on Levophed. She was also given broad-spectrum antibioticsfor sepsis. Patient was also found to have a non-ST elevated AZ and cardiology was consulted. She had echocardiogram which showed EF 35 to 40% moderate pulmonary hypertension and dilated IVC. Cardiology also recommended a cardiac catheterization. Patient was also found to have a hyponatremia with serum sodium 123 to 124 mmol/L. She was given Bumex to improve her respiratory status. Nephrology is consulted for her hyponatremia management and CARMEN and risk stratification and prophylaxis. Patient underwent cardiac catheterization on 06/15/2024 and was found to have a three-vessel disease. Patient is not a suitable candidate for PCI or CABG. Cardiology recommended medical management. Interim history Patient was seen and examined at bedside. She was successfully extubated yesterday. She denies any chest pain palpation cough nausea vomit diarrhea and shortness of breath. Exam Physical Exam Vital Signs: Temp Pulse Resp BP Pulse Ox O2 Del Method O2 Flow Rate 96.9 F L 80 16 143/71 H 96 Nasal Cannula 2 06/17/24 06:00 06/17/24 07:00 06/17/24 07:00 06/17/24 07:00 06/17/24 07:00 06/17/24 07:00 06/17/24 07:00 FiO2 30 06/16/24 14:00 Narrative: General: Appears comfortable and not in distress Heart: S1-S2, no rub Lung: Bilateral air entry, no wheezing or crackles Abdomen: Soft, positive bowel sounds Extremities: No edema, no cyanosis Head: Atraumatic, normocephalic Ear: No gross hearing Deficit or external ear redness Eyes: No pallor or redness Neck: No JVD or visible mass Skin: No rashes , warm to touch ANTISQUE[place] FILLER: Awake,Alert, following simple command Musculoskeletal: No swelling or limitation of movement of the large joints Psychiatric: Cooperative, normal mood and affect Objective Intake and Output I&O: Intake & Output 06/14/24 06/15/24 06/16/24 06/17/24 23:59 23:59 23:59 23:59 Intake Total 1375 / 1375 1640 / 1640 330 / 330 300 / 300 Output Total 1650 / 1650 2275 / 2275 1725 / 1725 225 / 225 Balance -275 / -275 -635 / -635 -1395 / -1395 75 / 75 Weight 80.2 kg 80.2 kg 82 kg 81.5 kg Meds and Allergies Meds: Active Medications Acetaminophen (Acetaminophen 325 Mg Tablet) 650 mg PO Q6HR PRN PRN Reason: Pain Scale 1 - 3 or fever Stop: 06/12/25 00:33 Last Admin: 06/17/24 00:10 Dose: 650 mg Albuterol/Ipratropium (Ipratropium/Albuterol 0.5-3 Mg 3 Ml Ampul.Neb) 3 ml INHALATION Q6H PRN PRN Reason: SOB OR WHEEZING Stop: 06/12/25 18:14 Last Admin: 06/13/24 08:53 Dose: 3 ml Aspirin (Aspirin 81 Mg Tab.Chew) 81 mg PO DAILY [facility] Stop: 06/12/25 09:59 Last Admin: 06/17/24 09:39 Dose: 81 mg Atorvastatin Calcium (Atorvastatin 80 Mg Tablet) 80 mg PO QPM [facility] Stop: 06/16/25 20:59 Last Admin: 06/16/24 22:08 Dose: Not Given Benzonatate (Benzonatate 100 Mg Capsule) 200 mg PO TID PRN PRN Reason: Cough Stop: 06/12/25 18:16 Last Admin: 06/13/24 17:54 Dose: 200 mg Chlorhexidine Gluconate (Chlorhexidine Gluconate 0.12% 15 Ml Udc) 15 ml MUCOUS MEM BID [facility] Stop: 06/14/25 20:59 Last Admin: 06/16/24 22:08 Dose: Not Given Clopidogrel Bisulfate (Clopidogrel Bisulfate 75 Mg Tablet) 75 mg PO DAILY [facility] Stop: 06/14/25 08:59 Last Admin: 06/17/24 09:39 Dose: 75 mg Dextrose (Dextrose 50% In Water 25 Gm/50 Ml Syringe) 0 gm IV-PUSH PRN PRN PRN Reason: Hypoglycemia Stop: 06/12/25 00:39 Dorzolamide HCl (Dorzolamide 2% Op Soln 200 Drops/10 Ml Bottle) 1 drops EYE-BOTH DAILY [facility] Stop: 06/12/25 08:59 Last Admin: 06/17/24 09:40 Dose: 1 drops Enoxaparin Sodium (Enoxaparin 80 Mg/0.8 Ml Syringe) 80 mg SUBCUT DAILY [facility] Stop: 06/17/25 08:59 Glucose (Dextrose 40% Gel 15 Gm Tube) 0 gm PO PRN PRN PRN Reason: Hypoglycemia Stop: 06/12/25 00:39 Hydralazine HCl (Hydralazine 25 Mg Tablet) 25 mg PO BID [facility] Stop: 06/16/25 20:59 Last Admin: 06/17/24 09:39 Dose: 25 mg Magnesium Sulfate (Magnesium Sulf 2gm-*Swfi*) 2 gm in 50 mls @ 25 mls/hr IV DAILY PRN PRN Reason: Magnesium Level < 1.5 Stop: 06/12/25 00:33 Last Infusion: 06/13/24 19:00 Dose: Infused Sodium Chloride (0.9% Sodium Chloride 500 Ml) 500 mls @ 0 mls/hr IV .Q0M [facility] Stop: 06/12/25 12:59 Last Admin: 06/14/24 09:39 Dose: 10 mls/hr Ceftriaxone Sodium (Rocephin) 1 gm in 50 mls @ 100 mls/hr IV Q24H [facility] Last Admin: 06/16/24 13:50 Dose: 100 mls/hr Insulin Aspart (Insulin Aspart 300 Units/3 Ml) 0 units SUBCUT Q6HR [facility]; Protocol Stop: 06/14/25 17:59 Last Admin: 06/17/24 06:15 Dose: 2 units Isosorbide Mononitrate (Isosorbide Mononitrate 24hr Er 30 Mg Tab.Er.24h) 30 mg PO DAILY.6A [facility] Stop: 06/17/25 05:59 Last Admin: 06/17/24 06:15 Dose: 30 mg Melatonin (Melatonin 5 Mg Tablet) 5 mg PO QHS [facility] Stop: 06/13/25 21:59 Last Admin: 06/16/24 22:08 Dose: Not Given Metoprolol Tartrate (Metoprolol Tartrate 25 Mg Tablet) 25 mg PO BID [facility] Stop: 06/13/25 09:34 Last Admin: 06/17/24 09:39 Dose: 25 mg Metoprolol Tartrate (Metoprolol Tartrate 5 Mg/5 Ml Vial) 5 mg IV-PUSH Q6H PRN PRN Reason: Heart Rate- High Stop: 06/13/25 15:19 Last Admin: 06/14/24 00:00 Dose: 5 mg Miscellaneous Information (Consult To Pharmacy) 1 each MISCELLANE .PHACONSULT PRN; Protocol PRN Reason: ESA.Pharmacy Consult Stop: 06/17/24 13:20 Morphine Sulfate (Morphine Sulfate 4 Mg/Ml Cartridge) 4 mg IV-PUSH Q20M PRN PRN Reason: Chest Pain Nitroglycerin (Nitroglycerin 0.4 Mg Tab.Subl) 0.4 mg SUBLINGUAL Q5M PRN PRN Reason: Chest Pain Stop: 06/15/25 13:20 Ondansetron HCl (Ondansetron 4 Mg/2 Ml Vial) 4 mg IV-PUSH Q8H PRN PRN Reason: Nausea And Vomiting Stop: 06/12/25 00:33 Last Admin: 06/16/24 18:49 Dose: 4 mg Ondansetron HCl (Ondansetron 4 Mg/2 Ml Vial) 4 mg IV-PUSH Q6H PRN PRN Reason: Nausea And Vomiting Stop: 06/15/25 13:20 Pantoprazole Sodium (Pantoprazole 40 Mg Vial) 40 mg IV-PUSH DAILY [facility] Stop: 06/15/25 10:29 Last Admin: 06/17/24 09:39 Dose: 40 mg Potassium Chloride (Potassium Chloride Er 20 Meq Tab.Er.Prt) 20 meq PO DAILY PRN PRN Reason: Hypokalemia Stop: 06/12/25 00:33 Last Admin: 06/13/24 06:43 Dose: 20 meq Potassium Chloride (Potassium Chloride Er 20 Meq Tab.Er.Prt) 40 meq PO DAILY PRN PRN Reason: Hypokalemia Stop: 06/12/25 00:33 Potassium Chloride (Potassium Chloride Er 20 Meq Tab.Er.Prt) 40 meq PO STAT PRN PRN Reason: Hypokalemia Potassium Chloride (Potassium Chloride Liquid 20 Meq/15 Ml Udc) 40 meq PO DAILYPRN PRN Reason: Hypokalemia Stop: 06/15/25 06:42 Last Admin: 06/16/24 05:23 Dose: 40 meq Sodium Chloride (Sodium Chloride 0.9 % 10 Ml Syringe) 0 ml IV-PUSH PRN PRN PRN Reason: Flush Stop: 06/13/25 10:28 Last Admin: 06/15/24 20:43 Dose: 10 ml Sodium Chloride (Sodium Chloride 0.9 % 10 Ml Syringe) 0 ml IV-PUSH PRN PRN PRN Reason: Flush Stop: 06/14/25 15:14 Sodium Chloride (Sodium Chloride 0.9 % 10 Ml Vial.Pf) 10 ml INJECTION DAILY ERNESTIAN Stop: 06/15/25 10:29 Last Admin: 06/17/24 09:39 Dose: 10 ml Sodium Chloride (Sodium Chloride 0.9 % 10 Ml Syringe) 10 ml IV-PUSH PRN PRN PRN Reason: Flush Stop: 06/15/25 10:09 Spironolactone (Spironolactone 25 Mg Tablet) 25 mg PO DAILY ER[facility]ST[facility] Stop: 06/16/25 08:59 Last Admin: 06/17/24 09:39 Dose: 25 mg Timolol Maleate (Timolol Mal 0.5% Op Soln 100 Drops/5 Ml Bottle) 1 drops EYE- BOTH DAILY [facility] Stop: 06/12/25 08:59 Last Admin: 06/17/24 09:40 Dose: 1 drops Warfarin Sodium (Warfarin - Pharmacy Dosing) 1 each MISCELLANE PRN PRN PRN Reason: zz.Pharmacy Note Stop: 06/16/25 18:33 Warfarin Sodium (Warfarin 5 Mg Tablet) 5 mg PO DAILY.5P ERNEST[facility] Stop: 06/17/25 16:59 Allergies flecainide Allergy (Unknown, Verified 05/17/24 08:07) Hives Results - Nephrology Labs 06/17/24 04:39 06/17/24 04:39 Labs: 06/17/24 06/17/24 06/17/24 04:39 04:39 04:39 BUN 58 H Cancelled Creatinine 2.16 H D Cancelled Radiology Impressions Impressions - last 24 hours: Any impression(s) listed above is documentation that was entered by the reading physician into a diagnostic report(s) for Lyric Juarez. I have reviewed the report(s) and am incorporating any findings in the treatment plan of this patient where applicable. A&P - Nephrology Assessment/Plan (1) Acute kidney injury superimposed on CKD: Assessment/Problem Details: She likely has an KARIS due to the CARMEN. Her renal function has been declining. 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 Her serum sodium within acceptable range. (3) CKD stage 3a, GFR 45-59 ml/min: Assessment/Problem Details: She has a CKD due to the DM and HTN with baseline serum creatinine around 1.1 mg/dL. Her renal function initially was worse due to the hypotension but improved with optimization of her hemodynamics. (4) Hypokalemia: Assessment/Problem Details: She had hypokalemia due to the diuretic induced renal potassium wasting. Her potassium is back to normal with oral and IV replacement. (5) Non-ST elevation (NSTEMI) myocardial infarction: Assessment/Problem Details: Patient also diagnosed to have a AZ. She was found to have a three-vessel disease. Medical management was recommended by cardiology. (6) Sepsis: Assessment/Problem Details: Patient presented with a sepsis and initially required vasopressors. She is offthe vasopressors andcurrently on broad-spectrum antibiotic. (7) COVID-19: Assessment/Problem Details: Patient has COVID-19 infection. She is currently on steroids. Pulmonary has been following the patient. (8) Atrial fibrillation: Assessment/Problem Details: Patient has atrial fibrillation. Currently on metoprolol. Plan * Her serum creatinine slightly went up and her urine output has dropped. Will continue to monitor renal function closely. * Her serum sodium is within the acceptable range. No need for 3% saline. * Continue IV antibiotic. Pharmacy to dose medication based on EGFR. * Continue management of COVID-19 infection and sporty failure as per pulmonary. * Continue management of CAD and A-fib as per cardiology. * Check renal function daily and monitor serum sodium closely * Monitor input output Daily and daily weight. * Documented By: Elvis Philip MD 06/17/24 0951 Signed By: 06/17/24 0957 [facility]02-07-2025 Progress note Author Jaron Hicks [facility] Note Date/Time June 17, 2024 1 2:49am [facility] [address] [place] [address] Hospitalist Progress Note Signed Patient: Lyric Juarez MR#: [id number] : 1945 Acct:[id number] Age/Sex: 78 / F Adm Date: 5 Loc: Room: [address] [place] [address] Type: ADM IN Attending Dr: Jaron Hicks MD Copies to: ~ Date of Service: 06/16/2024 Subjective Subjective Narrative: Assessment And Plan 78F with history of atrial fibrillation, HTN, HLD, DM, CKD, Afib, and URSULA who presented to [place] ED presented after dizziness associated with a fall and was transferred for possible UTI /sepsis Rule out Septic shock - resolved lactic acidosis - resolved the patient is afebrile there is no significant leukocytosis . Pulmonary was consulted She was started on Zosyn/vancomycin empirically and required norepinephrine dripdespite appropriate IV fluids Influenza A and B Antigen [place] [facility] negative Blood Cx at [place] [facility] 06/11 no growth at 36-48h UA [place] [facility] with WBC < 10 blood culture 06/12 negative so far Lactic acidosis could be related to metformin use; her shock could be more cardiogenic her Abx was deescalated to ceftriaxone Covid19 infection ABG shows no hypercapnia SARS-CoV-2 Ag positive at [facility] CXR shows left lower lobe airspace disease and small left pleural effusion. agree with stopping IV steroids Breathing Tx as needed Pulmonary recommendation appreciated Hypoxia she has required up to 3L via nasal cannula. 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 she was extubated 05/16 Afib RVR - resolved She Presented with A-fib with rapid ventricular rate to [place] ED warfarin restarted with bridging with Lovenox Hyponatremia Na improving. Na as low as 123; Urine Osmolality 583; Urine Na 18 nephrology recommendation appreciated Possible KARIS Cr 1.4 on admission, Cr is up today to 1.5 nephrology on consult NSTEMI ICM Possible Acute HFrEF Troponin is > 10K Echo shoes EF 40% . Takotsubo Syndrome, Mild AR, RVSP 40-50mmHg she was started on heparin gtt she was evaluated by Cardiology. she underwent C shows Severe three-vessel coronary artery disease . she found to be not a candidate for PCI or coronary bypass surgery she is to continue Dual antiplatelet therapy, Statin , vasodilators (hydralazineand nitrates) . WADE inhibitors/ARB's/ARNI to be Avoided Due to hyponatremia ischemic hepatitis AST/ALT reached up more than 1000. TB wnl this is Likely due to shock ischemic hepatitis Hold on statin CMP in am she was evaluated by GI; hepatitis C and b testing pending coagulopathy INR up to 5.1; she was given Vit K and FFP to reverse INR for cardiac catheterization Hypomagnesemia Mg 1.1 on admission Replaced as needed DM blood sugars were reviewed (uncontrolled due to steroids) sliding scale insulin and accuchecks. hold oral antidiabetic medication/metformin. Fall CT head/brain wo con ( [place] [facility]) shows no acute finding CT cervical spine wo con ([facility]) shows No acute cervical spinal fracture CXR ([facility]) no acute finding LINTERVAL HPI: As Above, Pt resting in bed. she was extubated today Chronic diseases: Unless mentioned Above, Essential home medications have been continued. DVT Px: Addressed Disposition: To be determined Plan of care Discussed with: the medical team, the family at bedside L Exam Physical Exam Vital Signs: Temp Pulse Resp BP Pulse Ox O2 Del Method O2 Flow Rate 36.2 C L 71 17 109/71 100 Nasal Cannula 2 06/16/24 12:00 06/16/24 14:00 06/16/24 14:00 06/16/24 14:00 06/16/24 14:00 06/16/24 16:00 06/16/24 16:00 FiO2 30 06/16/24 14:00 Narrative: GEN: NAD, LUNGS: diminished breathing sounds CV: nl S1 S2; no M/R/G ABD: Soft, ND, NT, + BS, EXT: No peripheral edema, No calf muscle tenderness NEURO: generalized weakness after extubation Objective Lab Results 06/16/24 04:20 06/16/24 04:20 Microbiology Results Microbiology 06/12/24 05:56 Blood - Right Hand Blood Culture - Preliminary No Growth 4 Days 06/12/24 06:05 Blood - Left Hand Blood Culture - Preliminary No Growth 4 Days ABG Interpretation ABG results: 06/16/24 04:55 ABG pH 7.52 H ABG pCO2 28.9 L* ABG pO2 121.0 H* ABG HCO3 22.9 L ABG Total CO2 23.7 ABG O2 Saturation 98.0 ABG O2 Content 7.4 ABG Base Excess 0.8 Meds Allergies and Active Meds Allergies flecainide Allergy (Unknown, Verified 05/17/24 08:07) Hives Active Meds: Active Medications Generic Name Dose Route Start Last Admin Trade Name Freq PRN Reason Stop Dose Admin Acetaminophen 650 mg 06/12/24 00:34 Acetaminophen 325 Mg Tablet PO 06/12/25 00:33 Q6HR PRN Pain Scale 1 - 3 or fever Albuterol 6 puff 06/14/24 18:00 06/16/24 11:00 Albuterol Hfa 200 Puff/18 Gm Inhaler VENT 06/14/25 17:59 6 puff Q6HR ERNESTINA Administration Albuterol/Ipratropium 3 ml 06/12/24 18:03 06/13/24 08:53 Ipratropium/Albuterol 0.5-3 Mg 3 Ml Ampul.Neb INHALATION 06/12/25 18:14 3 ml Q6H PRN Administration SOB OR WHEEZING Aspirin 81 mg 06/12/24 10:00 06/16/24 08:54 Aspirin 81 Mg Tab.Chew PO 06/12/25 09:59 81 mg DAILY ERNESTINA Administration Atorvastatin Calcium 80 mg 06/16/24 21:00 Atorvastatin 80 Mg Tablet PO 06/16/25 20:59 QPM ERNESTINA Benzonatate 200 mg 06/12/24 18:17 06/13/24 17:54 Benzonatate 100 Mg Capsule PO 06/12/25 18:16 200 mg TID PRN Administration Cough Chlorhexidine Gluconate 15 ml 06/14/24 21:00 06/16/24 09:48 Chlorhexidine Gluconate 0.12% 15 Ml Udc MUCOUS MEM 06/14/25 20:59 15 ml BID ERNESTINA Administration Clopidogrel Bisulfate 75 mg 06/14/24 09:00 06/16/24 08:54 Clopidogrel Bisulfate 75 Mg Tablet PO 06/14/25 08:59 75 mg DAILY ERNESTINA Administration Dextrose 0 gm 06/12/24 00:40 Dextrose 50% In Water 25 Gm/50 Ml Syringe IV-PUSH 06/12/25 00:39 PRN PRN Hypoglycemia Dorzolamide HCl 1 drops 06/12/24 09:00 06/16/24 08:55 Dorzolamide 2% Op Soln 200 Drops/10 Ml Bottle EYE-BOTH 06/12/25 08:59 1 drops DAILY ERNESTINA Administration Enoxaparin Sodium 80 mg 06/16/24 22:00 Enoxaparin 80 Mg/0.8 Ml Syringe SUBCUT 06/16/25 21:59 Q12HR.10A.10P ERNESTINA Glucose 0 gm 06/12/24 00:40 Dextrose 40% Gel 15 Gm Tube PO 06/12/25 00:39 PRN PRN Hypoglycemia Hydralazine HCl 25 mg 06/16/24 21:00 Hydralazine 25 Mg Tablet PO 06/16/25 20:59 BID ERNESTINA Magnesium Sulfate 2 gm in 50 mls @ 25 mls/hr 06/12/24 00:34 06/13/24 19:00 Magnesium Sulf 2gm-*Swfi* IV 06/12/25 00:33 Infused DAILY PRN Infusion Magnesium Level < 1.5 Sodium Chloride 500 mls @ 0 mls/hr 06/12/24 13:00 06/14/24 09:39 0.9% Sodium Chloride 500 Ml IV 06/12/25 12:59 10 mls/hr .Q0M ERNESTINA Administration Per Protocol Propofol 1,000 mg in 100 mls @ 9.624 mls/hr 06/14/24 16:00 06/16/24 08:54 Diprivan IV 06/14/25 15:59 20 mcg/kg/min .[id number] ERNESTINA 9.62 mls/hr Administration Protocol 20 MCG/KG/MIN Ceftriaxone Sodium 1 gm in 50 mls @ 100 mls/hr 06/16/24 14:00 06/16/24 13:50 Rocephin IV 100 mls/hr Q24H ERNESTINA Administration Insulin Aspart 0 units 06/14/24 18:00 06/16/24 11:26 Insulin Aspart 300 Units/3 Ml SUBCUT 06/14/25 17:59 3 units Q6HR ERNESTINA Administration Protocol Isosorbide Mononitrate 30 mg 06/17/24 06:00 Isosorbide Mononitrate 24hr Er 30 Mg Tab.Er.24h PO 06/17/25 05:59 DAILY.6A ERNESTINA Melatonin 5 mg 06/13/24 22:00 06/15/24 21:58 Melatonin 5 Mg Tablet PO 06/13/25 21:59 Not Given QHS ERNESTINA Methylprednisolone Sodium Succinate 40 mg 06/13/24 20:00 06/16/24 08:55 Methylprednisolone Sod Succ/Pf 40 Mg/Ml (1ml) Vial IV-PUSH 06/13/25 19:59 40 mg Q12HR ERNESTINA Administration Metoprolol Tartrate 25 mg 06/13/24 09:35 06/16/24 08:55 Metoprolol Tartrate 25 Mg Tablet PO 06/13/25 09:34 25 mg BID ERNESTINA Administration Metoprolol Tartrate 5 mg 06/13/24 15:20 06/14/24 00:00 Metoprolol Tartrate 5 Mg/5 Ml Vial IV-PUSH 06/13/25 15:19 5 mg Q6H PRN Administration Heart Rate- High Miscellaneous Information 1 each 06/15/24 13:21 Consult To Pharmacy MISCELLANE 06/17/24 13:20 .PHACONSULT PRN ZZ.Pharmacy Consult Protocol Morphine Sulfate 4 mg 06/15/24 13:21 Morphine Sulfate 4 Mg/Ml Cartridge IV-PUSH Q20M PRN Chest Pain Nitroglycerin 0.4 mg 06/15/24 13:21 Nitroglycerin 0.4 Mg Tab.Subl SUBLINGUAL 06/15/25 13:20 Q5M PRN Chest Pain Ondansetron HCl 4 mg 06/12/24 00:34 06/14/24 09:45 Ondansetron 4 Mg/2 Ml Vial IV-PUSH 06/12/25 00:33 4 mg Q8H PRN Administration Nausea And Vomiting Ondansetron HCl 4 mg 06/15/24 13:21 Ondansetron 4 Mg/2 Ml Vial IV-PUSH 06/15/25 13:20 Q6H PRN Nausea And Vomiting Pantoprazole Sodium 40 mg 06/15/24 10:30 06/16/24 08:55 Pantoprazole 40 Mg Vial IV-PUSH 06/15/25 10:29 40 mg DAILY ERNESTINA Administration Potassium Chloride 20 meq 06/12/24 00:34 06/13/24 06:43 Potassium Chloride Er 20 Meq Tab.Er.Prt PO 06/12/25 00:33 20 meq DAILY PRN Administration Hypokalemia Potassium Chloride 40 meq 06/12/24 00:34 Potassium Chloride Er 20 Meq Tab.Er.Prt PO 06/12/25 00:33 DAILY PRN Hypokalemia Potassium Chloride 40 meq 06/15/24 07:00 Potassium Chloride Er 20 Meq Tab.Er.Prt PO STAT PRN Hypokalemia Potassium Chloride 40 meq 06/15/24 06:43 06/16/24 05:23 Potassium Chloride Liquid 20 Meq/15 Ml Udc PO 06/15/25 06:42 40 meq DAILY PRN Administration Hypokalemia Propofol 0 mg 06/14/24 15:58 Propofol - Infusion Bolus 1,000 Mg/100 Ml Vial IV 06/14/25 15:57 PROTOCOL PRN Bolus Documentation Sodium Chloride 0 ml 06/13/24 10:29 06/15/24 20:43 Sodium Chloride 0.9 % 10 Ml Syringe IV-PUSH 06/13/25 10:28 10 ml PRN PRN Administration Flush Sodium Chloride 0 ml 06/14/24 15:15 Sodium Chloride 0.9 % 10 Ml Syringe IV-PUSH 06/14/25 15:14 PRN PRN Flush Sodium Chloride 10 ml 06/15/24 10:30 06/16/24 08:55 Sodium Chloride 0.9 % 10 Ml Vial.Pf INJECTION 06/15/25 10:29 10 ml DAILY ERNESTINA Administration Sodium Chloride 10 ml 06/15/24 10:10 Sodium Chloride 0.9 % 10 Ml Syringe IV-PUSH 06/15/25 10:09 PRN PRN Flush Spironolactone 25 mg 06/16/24 09:00 06/16/24 08:55 Spironolactone 25 Mg Tablet PO 06/16/25 08:59 25 mg DAILY ERNESTINA Administration Timolol Maleate 1 drops 06/12/24 09:00 06/16/24 08:55 Timolol Mal 0.5% Op Soln 100 Drops/5 Ml Bottle EYE-BOTH 06/12/25 08:59 1 drops DAILY ERNESTINA Administration Warfarin Sodium 10 mg 06/16/24 14:20 Warfarin 10 Mg Tablet PO 06/16/24 14:21 ONCE ONE A&P - Hospitalist Assessment/Plan (1) COVID-19: Plan Documented By: Jaron Hicks MD 06/16/24 1646 Signed By: <Electronically signed by Jaron Hicks MD> 06/17/249 [facility] Work Phone: [phone]) 484-888502-07-2025 [place] [address] Hospitalist Progress Note Signed Patient: Lyric Juarez MR#: [id number] : 1945 Acct:[id number] Age/Sex: 78 / F Adm Date: 5 Loc: Room: [address] [place] [address] Type: ADM IN Attending Dr: Jaron Hicks MD Copies to: ~ Date of Service: 06/16/2024 Subjective Subjective Narrative: Assessment And Plan 78F with history of atrial fibrillation, HTN, HLD, DM, CKD, Afib, and URSULA who presented to [facility] presented after dizziness associated with a fall and was transferred for possible UTI /sepsis Rule out Septic shock - resolved lactic acidosis - resolved the patient is afebrile there is no significant leukocytosis . Pulmonary was consulted She was started on Zosyn/vancomycin empirically and required norepinephrine dripdespite appropriateIV fluids Influenza A and B Antigen [facility] negative Blood Cx at [facility] 06/11 no growth at 36-48h UA [place] [facility] with WBC < 10 blood culture 06/12 negative so far Lactic acidosis could be related to metformin use; her shock could be more cardiogenic her Abx was deescalated to ceftriaxone Covid19 infection ABG shows no hypercapnia SARS-CoV-2 Ag positive at [facility] CXR shows left lower lobe airspace disease and small left pleural effusion. agree with stopping IV steroids Breathing Tx as needed Pulmonary recommendation appreciated Hypoxia she has required up to 3L via nasal cannula. 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 she was extubated 05/16 Afib RVR - resolved She Presented with A-fib with rapid ventricular rate to [facility] warfarin restarted with bridging with Lovenox Hyponatremia Na improving. Na as low as 123; Urine Osmolality 583; Urine Na 18 nephrology recommendation appreciated Possible KARIS Cr 1.4 on admission, Cr is up today to 1.5 nephrology on consult NSTEMI ICM Possible Acute HFrEF Troponin is > 10K Echo shoes EF 40% . Takotsubo Syndrome, Mild AR, RVSP 40-50mmHg she was started on heparin gtt she was evaluated by Cardiology. she underwent [facility] shows Severe three-vessel coronary artery disease . she found to be not a candidate for PCI or coronary bypass surgery she is to continue Dual antiplatelet therapy, Statin , vasodilators (hydralazineand nitrates) . ACEinhibitors/ARB's/ARNI to be Avoided Due to hyponatremia ischemic hepatitis AST/ALT reached up more than 1000. TB wnl this is Likely due to shock ischemic hepatitis Hold on statin CMP in am she was evaluated by GI; hepatitis C and b testing pending coagulopathy INR up to 5.1; she was given Vit K and FFP to reverse INR for cardiac catheterization Hypomagnesemia Mg 1.1 on admission Replaced as needed DM blood sugars were reviewed (uncontrolled due to steroids) sliding scale insulin and accuchecks. hold oral antidiabetic medication/metformin. Fall CT head/brain wo con ( [place] [facility]) shows no acute finding CT cervical spine wo con ([facility]) shows No acute cervical spinal fracture CXR ([facility]) no acute finding LINTERVAL HPI: As Above, Pt resting in bed. she was extubated today Chronic diseases: Unless mentioned Above, Essential home medications have been continued. DVT Px: Addressed Disposition: To be determined Plan of care Discussed with: the medical team, the family at bedside L Exam Physical Exam Vital Signs: Temp Pulse Resp BP Pulse Ox O2 Del Method O2 Flow Rate 36.2 C L 71 17 109/71 100 Nasal Cannula 2 06/16/24 12:00 06/16/24 14:00 06/16/24 14:00 06/16/24 14:00 06/16/24 14:00 06/16/24 16:00 06/16/24 16:00 FiO2 30 06/16/24 14:00 Narrative: GEN: NAD, LUNGS: diminished breathing sounds CV: nl S1 S2; no M/R/G ABD: Soft, ND, NT, + BS, EXT: No peripheral edema, No calf muscle tenderness NEURO: generalized weakness after extubation Objective Lab Results 06/16/24 04:20 06/16/24 04:20 Microbiology Results Microbiology 06/12/24 05:56 Blood - Right Hand Blood Culture - Preliminary No Growth 4 Days 06/12/24 06:05 Blood - Left Hand Blood Culture - Preliminary No Growth 4 Days ABG Interpretation ABG results: 06/16/24 04:55 ABG pH 7.52 H ABG pCO2 28.9 L* ABG pO2 121.0 H* ABG HCO3 22.9 L ABG Total CO2 23.7 ABG O2 Saturation 98.0 ABG O2 Content 7.4 ABG Base Excess 0.8 Meds Allergies and Active Meds Allergies flecainide Allergy (Unknown, Verified 05/17/24 08:07) Hives Active Meds: Active Medications Generic Name Dose Route Start Last Admin Trade Name Freq PRN Reason Stop Dose Admin Acetaminophen 650 mg 06/12/24 00:34 Acetaminophen 325 Mg Tablet PO 06/12/25 00:33 Q6HR PRN Pain Scale 1 - 3 or fever Albuterol 6 puff 06/14/24 18:00 06/16/24 11:00 Albuterol Hfa 200 Puff/18 Gm Inhaler VENT 06/14/25 17:59 6 puff Q6HR ERNESTINA Administration Albuterol/Ipratropium 3 ml 06/12/24 18:03 06/13/24 08:53 Ipratropium/Albuterol 0.5-3 Mg 3 Ml Ampul.Neb INHALATION 06/12/25 18:14 3 ml Q6H PRN Administration SOB OR WHEEZING Aspirin 81 mg 06/12/24 10:00 06/16/24 08:54 Aspirin 81 Mg Tab.Chew PO 06/12/25 09:59 81 mg DAILY ERNESTINA Administration Atorvastatin Calcium 80 mg 06/16/24 21:00 Atorvastatin 80 Mg Tablet PO 06/16/25 20:59 QPM ERNESTINA Benzonatate 200 mg 06/12/24 18:17 06/13/24 17:54 Benzonatate 100 Mg Capsule PO 06/12/25 18:16 200 mg TID PRN Administration Cough Chlorhexidine Gluconate 15 ml 06/14/24 21:00 06/16/24 09:48 Chlorhexidine Gluconate 0.12% 15 Ml Udc MUCOUS MEM 06/14/25 20:59 15 ml BID ERNESTINA Administration Clopidogrel Bisulfate 75 mg 06/14/24 09:00 06/16/24 08:54 Clopidogrel Bisulfate 75 Mg Tablet PO 06/14/25 08:59 75 mg DAILY ERNESTINA Administration Dextrose 0 gm 06/12/24 00:40 Dextrose 50% In Water 25 Gm/50 Ml Syringe IV-PUSH 06/12/25 00:39 PRN PRN Hypoglycemia Dorzolamide HCl 1 drops 06/12/24 09:00 06/16/24 08:55 Dorzolamide 2% Op Soln 200 Drops/10 Ml Bottle EYE-BOTH 06/12/25 08:59 1 drops DAILY ERNESTINA Administration Enoxaparin Sodium 80 mg 06/16/24 22:00 Enoxaparin 80 Mg/0.8 Ml Syringe SUBCUT 06/16/25 21:59 Q12HR.10A.10P ERNESTINA Glucose 0 gm 06/12/24 00:40 Dextrose 40% Gel 15 Gm Tube PO 06/12/25 00:39 PRN PRN Hypoglycemia Hydralazine HCl 25 mg 06/16/24 21:00 Hydralazine 25 Mg Tablet PO 06/16/25 20:59 BID ERNESTINA Magnesium Sulfate 2 gm in 50 mls @ 25 mls/hr 06/12/24 00:34 06/13/24 19:00 Magnesium Sulf 2gm-*Swfi* IV 06/12/25 00:33 Infused DAILY PRN Infusion Magnesium Level < 1.5 Sodium Chloride 500 mls @ 0 mls/hr 06/12/24 13:00 06/14/24 09:39 0.9% Sodium Chloride 500 Ml IV 06/12/25 12:59 10 mls/hr .Q0M ERNESTINA Administration Per Protocol Propofol 1,000 mg in 100 mls @ 9.624 mls/hr 06/14/24 16:00 06/16/24 08:54 Diprivan IV 06/14/25 15:59 20 mcg/kg/min .[id number] ERNESTINA 9.62 mls/hr Administration Protocol 20 MCG/KG/MIN Ceftriaxone Sodium 1 gm in 50 mls @ 100 mls/hr 06/16/24 14:00 06/16/24 13:50 Rocephin IV 100 mls/hr Q24H ERNESTINA Administration Insulin Aspart 0 units 06/14/24 18:00 06/16/24 11:26 Insulin Aspart 300 Units/3 Ml SUBCUT 06/14/25 17:59 3 units Q6HR ERNESTINA Administration Protocol Isosorbide Mononitrate 30 mg 06/17/24 06:00 Isosorbide Mononitrate 24hr Er 30 Mg Tab.Er.24h PO 06/17/25 05:59 DAILY.6A ERNESTINA Melatonin 5 mg 06/13/24 22:00 06/15/24 21:58 Melatonin 5 Mg Tablet PO 06/13/25 21:59 Not Given QHS ERNESTINA Methylprednisolone Sodium Succinate 40 mg 06/13/24 20:00 06/16/24 08:55 Methylprednisolone Sod Succ/Pf 40 Mg/Ml (1ml) Vial IV-PUSH 06/13/25 19:59 40 mg Q12HR ERNESTINA Administration Metoprolol Tartrate 25 mg 06/13/24 09:35 06/16/24 08:55 Metoprolol Tartrate 25 Mg Tablet PO 06/13/25 09:34 25 mg BID ERNESTINA Administration Metoprolol Tartrate 5 mg 06/13/24 15:20 06/14/24 00:00 Metoprolol Tartrate 5 Mg/5 Ml Vial IV-PUSH 06/13/25 15:19 5 mg Q6H PRN Administration Heart Rate- High Miscellaneous Information 1 each 06/15/24 13:21 Consult To Pharmacy MISCELLANE 06/17/24 13:20 .PHACONSULT PRN ZZ.Pharmacy Consult Protocol Morphine Sulfate 4 mg 06/15/24 13:21 Morphine Sulfate 4 Mg/Ml Cartridge IV-PUSH Q20M PRN Chest Pain Nitroglycerin 0.4 mg 06/15/24 13:21 Nitroglycerin 0.4 Mg Tab.Subl SUBLINGUAL 06/15/25 13:20 Q5M PRN Chest Pain Ondansetron HCl 4 mg 06/12/24 00:34 06/14/24 09:45 Ondansetron 4 Mg/2 Ml Vial IV-PUSH 06/12/25 00:33 4 mg Q8H PRN Administration Nausea And Vomiting Ondansetron HCl 4 mg 06/15/24 13:21 Ondansetron 4 Mg/2 Ml Vial IV-PUSH 06/15/25 13:20 Q6H PRN Nausea And Vomiting Pantoprazole Sodium 40 mg 06/15/24 10:30 06/16/24 08:55 Pantoprazole 40 Mg Vial IV-PUSH 06/15/25 10:29 40 mg DAILY ERNESTINA Administration Potassium Chloride 20 meq 06/12/24 00:34 06/13/24 06:43 Potassium Chloride Er 20 Meq Tab.Er.Prt PO 06/12/25 00:33 20 meq DAILY PRN Administration Hypokalemia Potassium Chloride 40 meq 06/12/24 00:34 Potassium Chloride Er 20 Meq Tab.Er.Prt PO 06/12/25 00:33 DAILY PRN Hypokalemia Potassium Chloride 40 meq 06/15/24 07:00 Potassium Chloride Er 20 Meq Tab.Er.Prt PO STAT PRN Hypokalemia Potassium Chloride 40 meq 06/15/24 06:43 06/16/24 05:23 Potassium Chloride Liquid 20 Meq/15 Ml Udc PO 06/15/25 06:42 40 meq DAILY PRN Administration Hypokalemia Propofol 0 mg 06/14/24 15:58 Propofol - Infusion Bolus 1,000 Mg/100 Ml Vial IV 06/14/25 15:57 PROTOCOL PRN Bolus Documentation Sodium Chloride 0 ml 06/13/24 10:29 06/15/24 20:43 Sodium Chloride 0.9 % 10 Ml Syringe IV-PUSH 06/13/25 10:28 10 ml PRN PRN Administration Flush Sodium Chloride 0 ml 06/14/24 15:15 Sodium Chloride 0.9 % 10 Ml Syringe IV-PUSH 06/14/25 15:14 PRN PRN Flush Sodium Chloride 10 ml 06/15/24 10:30 06/16/24 08:55 Sodium Chloride 0.9 % 10 Ml Vial.Pf INJECTION 06/15/25 10:29 10 ml DAILY ERNESTINA Administration Sodium Chloride 10 ml 06/15/24 10:10 Sodium Chloride 0.9 % 10 Ml Syringe IV-PUSH 06/15/25 10:09 PRN PRN Flush Spironolactone 25 mg 06/16/24 09:00 06/16/24 08:55 Spironolactone 25 Mg Tablet PO 06/16/25 08:59 25 mg DAILY ERNESTINA Administration Timolol Maleate 1 drops 06/12/24 09:00 06/16/24 08:55 Timolol Mal 0.5% Op Soln 100 Drops/5 Ml Bottle EYE-BOTH 06/12/25 08:59 1 drops DAILY ERNESTINA Administration Warfarin Sodium 10 mg 06/16/24 14:20 Warfarin 10 Mg Tablet PO 06/16/24 14:21 ONCE ONE A&P - Hospitalist Assessment/Plan (1) COVID-19: Plan Documented By: Jaron Hicks MD 06/16/24 1649 Signed By: 06/17/24 0049 [facility]02-06-2025 Progress note Author Frandy Cabrera [facility] Note Date/Time June 16, 2024 2 :20pm [facility] [address] [place], [place] [id number] Cardiology Progress Note Signed Patient: Lyric Juarez MR#: [id number] : 1945 Acct:[id number] Age/Sex: 78 / F Adm Date: 5 Loc: Room: 6G1468-2 Type: ADM IN Attending Dr: Jaron Hicks MD Copies to: ~ Date of Service: 06/16/2024 Subjective Principal diagnosis: Congestive heart failure/non-ST elevation myocardial infarction Interval history: Ms. Juarez is a 78 year old female with PMH significant for Permanent Afib on Coumadin, follows with Dr Cabrera, HTN, HLD, DM II, CKD who presented to [place] ER for 1 day history of weakness. She denied chest pain, dyspnea, palpitations, light headedness or syncope. She was found to have low grade feverand was in Afib with RVR. She tested positive for COVID and other labs were significant for hyponatremia of 123, serum creatinine of 1.4, lactate of 2.3, troponin 544--3123--00402. EKG showed atrial fibrillation with slow VR and a new left bundle branch block. 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 Overnight she had brief episode of syncope and weakness and she was found to be hypotensive with ablood pressure of 60/43. She received 2 L normal saline without improvement andwas transferred to the ICU and started on Levophed. This a.m. she is awake and alert, she denies any chest pain, dyspnea or palpitations. She remains on Levophed at 12 with a MAP of 73. Chest x-ray completed today shows cardiomegaly with left lobe airspace disease and a small left pleural effusion. Echo completed today shows LVEF of 35-40% with wall motion abnormalities suggestive of Takotsubo cardiomyopathy. RVSP 40-50 mmHg. Normal RV size with moderately reduced function. Cardiology follow-up 06/13/2024: Patient is resting comfortably in the ICU. She denies any dyspnea or chest pain. Her blood pressure is now elevated and heart rate exceeded 100 bpm atrial fibrillation. INR is 3.4. She is on heparin drip as well. The patient's renal function is stable except for having low sodium 124 mmol/L. Magnesium 1.6 mg/dL and supplements have been provided. Echocardiogram suggest evidence of severe left ventricular systolic dysfunction with akinesis of the anteroseptal and apical segment. This could be stress cardiomyopathy, however, underlying severe CAD cannot be excluded and therefore coronary angiography is going to be necessary. Since her INR is supratherapeutic the cardiac catheterization has been postponed till tomorrow. Will reverse the Coumadin defect with fresh frozen plasma tomorrow and proceed with cardiac catheterization. The patient is in agreement with the plan. In the meantime we will need to have more aggressive treatment of hypertension and heart rate and because of this metoprolol be resumed and will add spironolactone. Will avoid WADE inhibitors, ARB or ARNI due to hyponatremia. Discussed the case with the patient and with Dr. Chanel Cardiology follow-up 06/14/2024: Patient is getting worse, her work of breathing is getting harder and cannot carry on a conversation with tachypnea. Chest x-ray demonstrated worsening compared to her initial film with more blunting of the costophrenic angles. Poor respiratory effort was noted. Her sodium is downto 223 mmol/L. Her transaminase is 10 times more what it was yesterday, creatinine is rising. Her sodium excretion is diminished. She is becoming moreanxious and remains tachycardic with atrial fibrillation. Despite receiving 2 units of FFP and 5 mg of oral vitamin K her INR has dropped to 2.6 only. Cardiac catheterization therefore could not be carried out. I discussed the case at length with the patient's son and another lady who I believe his and discussed the case at length with Dr. Chanel. Our recommendations were tointubate the patient and sedate her while mechanically ventilated allowing for things to settle down so that we can do cardiac catheterization comfortably and safely tomorrow morning after reversing Coumadin. They agreed and allowed us toproceed with this plan. More FFP will be provided this evening hoping that INR will be less than 2 tomorrow. The cardiac catheterization is tentatively scheduled for 8:00 tomorrow morning. Cardiology follow-up 06/15/2024: Patient was intubated last evening and remained stable overnight. Despite receiving FFP and vitamin K INR today is 2.9. Patient will receive more FFP's and 1 mg intravenous vitamin K today hoping to lower the INR to a safe range. Cardiac catheterization can be performed today. Liver enzymes worsened slightly compared to yesterday. Renal function slightly worsened as well. She remains in atrial fibrillation with controlled rate and her blood pressure is normal. Chest x-ray is unchanged. Potassium was low 2.5 mmol/L and potassium supplement was provided. Sodium level is 25 mmol/L Cardiology follow-up 06/16/2024: Cardiac catheterization yesterday revealed severethree-vessel coronary disease not amenable for PCI or bypass surgery. She remains intubated with a plan to extubate today. She was given dobutamine aftercardiac catheterization which led to hypotension and tachycardia. This has beendiscontinued since. She remains sedated and on the ventilator. Liver function slightly better, renal function slightly worse. Sodium is better at 130 mmol/L and the potassium is down to 2.9 mmol/L. Since the patient is not a candidate for intervention and since her atrial fibrillation is chronic we will be no further attempts to restore normal sinus rhythm. Will initiate vasodilators with hydralazine and nitrates, 1 the sodium level is back to normal we can use standard therapy for systolic heart failure. Will continue spironolactone, beta-blockers, dual antiplatelet therapy and high intensity statin. Hopefully patient can be extubated in the next several hours. Exam Physical Exam Vital Signs: Temp Pulse Resp BP Pulse Ox O2 Del Method O2 Flow Rate 97.2 F L 71 17 109/71 100 Mechanical Ventilation 3 06/16/24 12:00 06/16/24 14:00 06/16/24 14:00 06/16/24 14:00 06/16/24 14:00 06/16/24 14:00 06/14/24 16:00 FiO2 30 06/16/24 14:00 Const General: cooperative, comfortable, no acute distress, in distress, anxious, ill appearing and other (Currently on the ventilator and sedated) Nutritional Appearance: overweight Orientation: alert, awake and oriented x3 HEENT Head: normal to inspection, normocephalic and atraumatic Ears: hearing grossly normal bilaterally Nose: external nose normal Face and sinus: normal facial exam Eyes Conjunctivae: conjunctivae normal Neck Neck: trachea midline Neck mass: No Thyroid: thyroid normal Carotids: normal carotid upstroke Resp Effort & Inspection: normal respiratory effort, decreased respiratory effort, grunting, labored, tachypneic and uses accessory muscles Auscultation: clear to auscultation bilaterally, crackles and diminished lung sounds Cardio Jugular venous pressure: no JVD Palpation: normal PMI Rate: regular rate and tachycardic Rhythm: abnormal rhythm irregularly irregular Heart Sounds: S1 normal and S2 normal GI Palpation: soft and no hepatosplenomegaly Auscultation: normal bowel sounds Extrem General: no clubbing, cyanosis or edema Objective Labs 06/16/24 04:20 06/16/24 04:20 Labs: Laboratory Results - last 24 hr 06/15/24 06/15/24 06/16/24 17:34 23:25 04:20 Corrected WBC 11.3 Uncorrected WBC Count 11.3 RBC 3.56 L Hgb 10.8 L Hct 31.7 L MCV 89.1 MCH 30.4 MCHC 34.1 RDW 14.6 Plt Count 239 MPV 8.7 Neut % (Auto) N/A Lymph % (Auto) N/A [place] % (Auto) N/A Eos % (Auto) N/A Baso % (Auto) N/A Nucleat RBC Rel Count N/A Neut # (Auto) N/A Lymph # (Auto) N/A [place] # (Auto) N/A Eos # (Auto) N/A Baso # (Auto) N/A Band Neutrophils % 10 H Lymphocytes % 6 L Monocytes % 11 Eosinophils % 1 Segmented Neutrophils 71 H Nucleated RBCs/100 WBC 3 H Reactive Lymphocytes 1 Platelet Estimate Normal Large Platelets Slight Giant Platelets 3 Plt Morphology Comment N/A RBC Morphology N/A Polychromasia Slight Poikilocytosis Slight Ovalocytes Slight Crenated Cell Slight PT 15.1 H INR 1.3 APTT 25.7 Sample Site ABG pH ABG pCO2 ABG pO2 ABG HCO3 ABG Total CO2 ABG O2 Saturation ABG O2 Content ABG Base Excess Set Respiration Rate Vent Mode FiO2 Tidal Volume PEEP Critical Value PHA Creatinine Clear 30.70 Sodium 130 L Potassium 2.9 L* Chloride 92 L Carbon Dioxide 26.4 Anion Gap 14.5 BUN 42 H Creatinine 1.58 H Est GFR (CKD-EPI) 33.306 Glucose 247 H POC Glucose 241 249 Calcium 8.5 L Magnesium 2.6 Total Bilirubin 0.9 AST 706 H ALT 1246 H Alkaline Phosphatase 162 H Total Protein 6.3 L Albumin 3.6 Globulin 2.7 Albumin/Globulin Ratio 1.3 06/16/24 06/16/24 04:55 11:25 Corrected WBC Uncorrected WBC Count RBC Hgb Hct MCV MCH MCHC RDW Plt Count MPV Neut % (Auto) Lymph % (Auto) [place] % (Auto) Eos % (Auto) Baso % (Auto) Nucleat RBC Rel Count Neut # (Auto) Lymph # (Auto) [place] # (Auto) Eos # (Auto) Baso # (Auto) Band Neutrophils % Lymphocytes % Monocytes % Eosinophils % Segmented Neutrophils Nucleated RBCs/100 WBC Reactive Lymphocytes Platelet Estimate Large Platelets Giant Platelets Plt Morphology Comment RBC Morphology Polychromasia Poikilocytosis Ovalocytes Crenated Cell PT INR APTT Sample Site Right brachial ABG pH 7.52 H ABG pCO2 28.9 L* ABG pO2 121.0 H* ABG HCO3 22.9 L ABG Total CO2 23.7 ABG O2 Saturation 98.0 ABG O2 Content 7.4 ABG Base Excess 0.8 Set Respiration Rate 10 Vent Mode Ac FiO2 30 Tidal Volume 350 PEEP 5 Critical Value PHA Creatinine Clear Sodium Potassium Chloride Carbon Dioxide Anion Gap BUN Creatinine Est GFR (CKD-EPI) Glucose POC Glucose 253 Calcium Magnesium Total Bilirubin AST ALT Alkaline Phosphatase Total Protein Albumin Globulin Albumin/Globulin Ratio ABG Interpretation ABG results: 06/16/24 04:55 ABG pH 7.52 H ABG pCO2 28.9 L* ABG pO2 121.0 H* ABG HCO3 22.9 L ABG Total CO2 23.7 ABG O2 Saturation 98.0 ABG O2 Content 7.4 ABG Base Excess 0.8 A&P - Cardiology (1) Hypokalemia: Assessment/Problem Details: Potassium level still low at 2.9 mmol/L Plan: Potassium supplements provided, will maintain potassium level above 4 mmol/L Code(s): E87.6 - Hypokalemia (2) Hyponatremia: Assessment/Problem Details: Level is increased up to 130 mmol/L Plan: Avoid WADE inhibitors/ARB's/ARNI Code(s): E87.1 - Hypo-osmolality and hyponatremia (3) COVID-19: Assessment/Problem Details: No evidence of pneumonia on chest x-ray Plan: Continue present treatment Code(s): U07.1 - COVID-19 (4) Permanent atrial fibrillation: Assessment/Problem Details: This is permanent, heart rate is under control Plan: No attempts for bahai of normal sinus rhythm, resume anticoagulation with Coumadin, maintain therapeutic treatment with Lovenox in the interim Code(s): I48.21 - Permanent atrial fibrillation (5) Left ventricular systolic dysfunction: Assessment/Problem Details: Ejection fraction is down to 25?30% due to severe ischemic cardiomyopathy Plan: Due to hyponatremia will avoid WADE inhibitor, ARB and ARNI, continue beta- blockers and spironolactone, start hydralazine and nitrates Code(s): I51.89 - Other ill-defined heart diseases (6) Non-ST elevation (NSTEMI) myocardial infarction: Assessment/Problem Details: Due to severe coronary artery disease Plan: Dual antiplatelet therapy, high intensity statin, no intervention Code(s): I21.4 - Non-ST elevation (NSTEMI) myocardial infarction (7) Dyslipidemia: Plan: High intensity statin Code(s): E78.5 - Hyperlipidemia, unspecified (8) Respiratory failure: Assessment/Problem Details: Currently on the ventilator Plan: Pulmonary medicine is following the patient daily, patient can be extubated Code(s): J96.90 - Respiratory failure, unspecified, unspecified whether with hypoxia or hypercapnia (9) Liver failure: Assessment/Problem Details: Transaminase is coming down Plan: Treat heart failure Code(s): K72.90 - Hepatic failure, unspecified without coma (10) 3-vessel coronary artery disease: Assessment/Problem Details: Cardiac catheterization revealed 100% occlusion of the proximal right coronary artery, 100% occlusion of the mid LAD and 95% occlusion of the mid left circumflex Plan: Medical therapy, dual antiplatelet therapy, beta-blockers, nitrates and spironolactone along with high intensity statin Code(s): I25.10 - Atherosclerotic heart disease of [place] coronary artery without angina pectoris Plan Assessment: Septic shock New LV dysfunction EF 35-40%-possible Takotsubo cardiomyopathy. NYHA I symptoms. Euvolemic on exam Elevated troponin 544--3123--99331. Possible type II AZ from COVID myocarditis vs Takotsubo cardiomyopathy. Cannot rule out type I AZ. Lactic acidosis Hyponatremia Transaminitis in the setting of shock Permanent A-fib on Coumadin. Currently in slow VR. Hypertension Hyperlipidemia Diabetes type 2 CKD Echo completed today shows LVEF of 35-40% with wall motion abnormalities suggestive of Takotsubo cardiomyopathy. RVSP 40-50 mmHg. Normal RV size with moderately reduced function. Recommendations: - Start heparin gtt for possible ACS. Pt will need ischemic evaluation to r/o CAD once stable from a sepsis standpoint. - Wean Levophed for MAP greater than 65 - Start ASA & Statin. GDMT when BP is stable off pressors. Avoid BB if remains in slow VR. Monitor telemetry for arrhythmias. - Will obtain Mixed venous gas to calculate assumed Enrique cardiac output. Transduce CVP to guide fluid status and management -Given persistent lactic acidosis and increasing pressor requirements, recommendadditional 1 L fluid bolus with close monitoring of sodium and respiratory status. - Sepsis management per ICU team. -Will follow Documented By: Frandy Cabrera MD, [facility] 5 [id number] Signed By: <Electronically signed by MD BEAU Cabrera> 06/16/24 1420 [facility] Work Phone: [phone]) 807-139102-06-2025 Progress note Author Reilly Chanel [facility] Note Date/Time June 16, 2024 1 :08pm [facility] [address] [place] [address] Pulmonology Progress Note Signed Patient: Lyric Juarez MR#: [id number] : 1945 Acct:[id number] Age/Sex: 78 / F Adm Date: 5 Loc: Room: [address] [place] [address] Type: ADM IN Attending Dr: Jaron Hicks MD Copies to: ~ Date of Service: 06/16/2024 Subjective Subjective Narrative: Patient was tried on Dobutamine overnight to improve cardiac output which was stopped due to RVR with atrial fibrillation. Note improvement in blood pressure with concerns for rate dependent blood pressure. Exam Physical Exam Vital Signs: Temp Pulse Resp BP Pulse Ox O2 Del Method O2 Flow Rate 97.4 F L 96 17 122/67 96 Mechanical Ventilation 3 06/16/24 04:00 06/16/24 07:00 06/16/24 07:00 06/16/24 07:00 06/16/24 07:00 06/16/24 08:00 06/14/24 16:00 FiO2 30 06/16/24 08:00 Const General: cooperative Nutritional Appearance: average body habitus Orientation: alert and awake HEENT Head: normal to inspection Ears: hearing grossly normal bilaterally and external ears normal Nose: external nose normal Face and sinus: normal facial exam Eyes Sclera: sclerae normal Neck Neck: normal visual inspection (right internal jugular central venous catheter with dressing intact) Chest Chest palpation & inspection: normal inspection of the chest Resp Effort & Inspection: normal respiratory effort Auscultation: clear to auscultation bilaterally, diminished lung sounds, no rales, no rhonchi and wheezes expiratory wheezes (bilateral) Cardio Rate: tachycardic Rhythm: abnormal rhythm irregularly irregular Heart Sounds: S1 normal, S2 normal and no murmurs GI Inspection: normal to inspection Palpation: soft and nontender Rectal Exam: deferred General: deferred Skin General: no rashes or lesions noted (Warm and dry) Extrem General: no pedal edema Objective Intake and Output I&O - Last 24 Hours: Intake & Output 06/15/24 06/16/24 06/16/24 23:59 07:59 15:59 Intake Total 130 / 1640 30 / 30 Output Total 950 / 2275 1050 / 1050 Balance -820 / -635 -1020 / -1020 Weight 82 kg Labs 06/16/24 04:20 06/16/24 04:20 Microbiology Micro: Microbiology 3 06/12/24 05:56 Blood Culture - Preliminary Blood - Right Hand No Growth 4 Days 06/12/24 06:05 Blood Culture - Preliminary Blood - Left Hand No Growth 4 Days Imaging and Cardiology Chest x-ray: Status: image reviewed by me Additional comments: Date of Service: 06/16/24 XR/XR chest 1V portable: respiratory failure XR chest 1V portable 06/16/2024 4:36 AM SIGNS AND SYMPTOMS: respiratory failure PROTOCOL: Frontal radiograph of the chest COMPARISON: 06/15/2024 FINDINGS: The trachea is midline. The ET tube, enteric tube, and right IJ line are in satisfactory position. The heart and mediastinal structures are within normal limits. There is redemonstration of a pleural-parenchymal opacity at the left lung base. The bony thorax is intact. XR/XR chest 1V portable IMPRESSION: Unchanged chest. Additional Results Results Comments: 06/16/24 04:55 ABG pH 7.52 H ABG pCO2 28.9 L* ABG pO2 121.0 H* ABG HCO3 22.9 L ABG Total CO2 23.7 ABG O2 Saturation 98.0 ABG O2 Content 7.4 ABG Base Excess 0.8 /07/10 Assessment/Plan Assessment/Plan (1) Sepsis: (2) Atrial fibrillation: (3) COVID-19: (4) Acute kidney injury: (5) Bradycardia: (6) Elevated troponin: (7) Hyponatremia: Plan Hospital day #5, right internal jugular central venous catheter day #3, ventilator day #2 for patient admitted for hypotension, atrial fibrillation withRVR with subsequent junctional bradycardia with possible Takatsubo's cardiomyopathy on echocardiogram (EF about 35%) with incidental finding of COVIDpositive status. Cardiac catheterization and optimization of hemodynamics/renalfunction. Patient is also noted to have Group B Strep in urine on ceftriaxone. * Stop mucomyst * Await cardiology input regarding whether there would be any need for cardioversion to improve cardiac function with severe CAD and presumably ischemic cardiomyopathy * continue supportive care and would consider retrying dobutamine or consider milrinone * stop steroids as suspect wheezing was primarily cardiac in nature * decrease ceftriaxone to 1 gram daily for group B strep in urine with blood cultures at [place] negative x 4 days Documented By: Reilly Chanel MD 5 [id number] Signed By: <Electronically signed by MD Reilly Chanel> 06/16/24 9215 [facility] Work Phone: [phone]) 959-881502-06-2025 Progress note Author Elvis Philip [facility] Note Date/Time June 16, 2024 1 2:38pm [facility] [address] [place] [address] Nephrology Progress Note Signed Patient: Lyric Juarez MR#: [id number] : 1945 Acct:[id number] Age/Sex: 78 / F Adm Date: 5 Loc: Room: [address] [place] [address] Type: ADM IN Attending Dr: Jaron Hicks MD Copies to: ~ Date of Service: 06/16/2024 Subjective Subjective Narrative: This is a 78-year-old female with medical history of atrial fibrillation, HTN, DM, CKD, HLD was presented to the [facility] after a fall. On evaluationin emergency room she was found to have a fever with tachycardia. Her EKG showed A- fib with RVR and was given normal saline fluid boluses to improve her heart rate. She was transferred to the [facility] for sepsis management. Patient after arrival at [facility] was found to have a hypotension with a fall. She was given a normal saline bolus but due to the persistent hypotension she was moved to the intensive care unit and was started on Levophed. She was also given broad-spectrum antibioticsfor sepsis. Patient was also found to have a non-ST elevated [place] and cardiology was consulted. She had echocardiogram which showed EF 35 to 40% moderate pulmonary hypertension and dilated IVC. Cardiology also recommended a cardiac catheterization. Patient was also found to have a hyponatremia with serum sodium 123 to 124 mmol/L. She was given Bumex to improve her respiratory status. Nephrology is consulted for her hyponatremia management and CARMEN and risk stratification and prophylaxis. Interim history Patient was seen and examined at bedside. Patient underwent CAR-T catheterization yesterday and was found to have a three-vessel disease. Patientis not a suitable candidate for PCI or CABG. Cardiology recommended medical management. She continues to have a good urine output. Exam Physical Exam Vital Signs: Temp Pulse Resp BP Pulse Ox O2 Del Method O2 Flow Rate 97.3 F L 87 22 129/78 98 Mechanical Ventilation 3 06/16/24 08:00 06/16/24 11:06/16/24 11:06/16/24 11:06/16/24 11:06/16/24 11:06/14/24 16:00 FiO2 30 06/16/24 11:00 Narrative: General: Appears comfortable and not in distress Heart: S1-S2, no rub Lung: Bilateral air entry, no wheezing or crackles Abdomen: Soft, positive bowel sounds Extremities: Trace edema, no cyanosis Head: Atraumatic, normocephalic Ear: No external ear redness or tenderness Eyes: No pallor or redness Neck: Trachea is midline or no visible mass Skin: No rashes , warm to touch ANTISQUEAK FILLER: Intubated and sedated Musculoskeletal: No swelling or limitation of movement of the large joints Objective Intake and Output I&O: Intake & Output 06/13/24 06/14/24 06/15/24 06/16/24 23:59 23:59 23:59 23:59 Intake Total 2305 / 2305 1375 / 1375 1640 / 1640 130 / 130 Output Total 2150 / 2150 1650 / 1650 2275 / 2275 1050 / 1050 Balance 155 / 155 -275 / -275 -635 / -635 -920 / -920 Weight 81.4 kg 80.2 kg 80.2 kg 82 kg Meds and Allergies Meds: Active Medications Acetaminophen (Acetaminophen 325 Mg Tablet) 650 mg PO Q6HR PRN PRN Reason: Pain Scale 1 - 3 or fever Stop: 06/12/25 00:33 Albuterol (Albuterol Hfa 200 Puff/18 Gm Inhaler) 6 puff VENT Q6HR [facility] Stop: 06/14/25 17:59 Last Admin: 06/16/24 11:00 Dose: 6 puff Albuterol/Ipratropium (Ipratropium/Albuterol 0.5-3 Mg 3 Ml Ampul.Neb) 3 ml INHALATION Q6H PRN PRN Reason: SOB OR WHEEZING Stop: 06/12/25 18:14 Last Admin: 06/13/24 08:53 Dose: 3 ml Aspirin (Aspirin 81 Mg Tab.Chew) 81 mg PO DAILY [facility] Stop: 06/12/25 09:59 Last Admin: 06/16/24 08:54 Dose: 81 mg Benzonatate (Benzonatate 100 Mg Capsule) 200 mg PO TID PRN PRN Reason: Cough Stop: 06/12/25 18:16 Last Admin: 06/13/24 17:54 Dose: 200 mg Chlorhexidine Gluconate (Chlorhexidine Gluconate 0.12% 15 Ml Udc) 15 ml MUCOUS MEM BID [facility] Stop: 06/14/25 20:59 Last Admin: 06/16/24 09:48 Dose: 15 ml Clopidogrel Bisulfate (Clopidogrel Bisulfate 75 Mg Tablet) 75 mg PO DAILY [facility] Stop: 06/14/25 08:59 Last Admin: 06/16/24 08:54 Dose: 75 mg Dextrose (Dextrose 50% In Water 25 Gm/50 Ml Syringe) 0 gm IV-PUSH PRN PRN PRN Reason: Hypoglycemia Stop: 06/12/25 00:39 Dorzolamide HCl (Dorzolamide 2% Op Soln 200 Drops/10 Ml Bottle) 1 drops EYE-BOTH DAILY [facility] Stop: 06/12/25 08:59 Last Admin: 06/16/24 08:55 Dose: 1 drops Enoxaparin Sodium (Enoxaparin 40 Mg/0.4 Ml Syringe) 40 mg SUBCUT DAILY@1000 ERNEST[facility] Stop: 06/16/25 09:59 Last Admin: 06/16/24 11:28 Dose: 40 mg Glucose (Dextrose 40% Gel 15 Gm Tube) 0 gm PO PRN PRN PRN Reason: Hypoglycemia Stop: 06/12/25 00:39 Magnesium Sulfate (Magnesium Sulf 2gm-*Swfi*) 2 gm in 50 mls @ 25 mls/hr IV DAILY PRN PRN Reason: Magnesium Level < 1.5 Stop: 06/12/25 00:33 Last Infusion: 06/13/24 19:00 Dose: Infused Sodium Chloride (0.9% Sodium Chloride 500 Ml) 500 mls @ 0 mls/hr IV .Q0M ERNESTINA Stop: 06/12/25 12:59 Last Admin: 06/14/24 09:39 Dose: 10 mls/hr Propofol (Diprivan) 1,000 mg in 100 mls @ 9.624 mls/hr IV .[id number] ERNESTINA; Protocol Stop: 06/14/25 15:59 Last Admin: 06/16/24 08:54 Dose: 20 mcg/kg/min, 9.62 mls/hr Dobutamine HCl/Dextrose (Dobutamine 500mg-*D5w*) 500 mg in 250 mls @ 4.812 mls/hr IV .Q24H ERNESTINA; Protocol Stop: 06/15/25 18:59 Last Titration: 06/16/24 05:55 Dose: 0 mcg/kg/min, 0 mls/hr Potassium Chloride 40 meq/ (Sodium Chloride) 100 mls @ 25 mls/hr IV ONCE ONE Stop: 06/16/24 13:29 Last Admin: 06/16/24 09:48 Dose: 25 mls/hr Ceftriaxone Sodium (Rocephin) 1 gm in 50 mls @ 100 mls/hr IV Q24H [facility] Insulin Aspart (Insulin Aspart 300 Units/3 Ml) 0 units SUBCUT Q6HR [facility]; Protocol Stop: 06/14/25 17:59 Last Admin: 06/16/24 11:26 Dose: 3 units Melatonin (Melatonin 5 Mg Tablet) 5 mg PO QHS [facility] Stop: 06/13/25 21:59 Last Admin: 06/15/24 21:58 Dose: Not Given Methylprednisolone Sodium Succinate (Methylprednisolone Sod Succ/Pf 40 Mg/Ml (1ml) Vial) 40 mg IV-PUSH Q12HR [facility] Stop: 06/13/25 19:59 Last Admin: 06/16/24 08:55 Dose: 40 mg Metoprolol Tartrate (Metoprolol Tartrate 25 Mg Tablet) 25 mg PO BID [facility] Stop: 06/13/25 09:34 Last Admin: 06/16/24 08:55 Dose: 25 mg Metoprolol Tartrate (Metoprolol Tartrate 5 Mg/5 Ml Vial) 5 mg IV-PUSH Q6H PRN PRN Reason: Heart Rate- High Stop: 06/13/25 15:19 Last Admin: 06/14/24 00:00 Dose: 5 mg Miscellaneous Information (Consult To Pharmacy) 1 each MISCELLANE .PHACONSULT PRN; Protocol PRN Reason: [place].Pharmacy Consult Stop: 06/17/24 13:20 Morphine Sulfate (Morphine Sulfate 4 Mg/Ml Cartridge) 4 mg IV-PUSH Q20M PRN PRN Reason: Chest Pain Nitroglycerin (Nitroglycerin 0.4 Mg Tab.Subl) 0.4 mg SUBLINGUAL Q5M PRN PRN Reason: Chest Pain Stop: 06/15/25 13:20 Ondansetron HCl (Ondansetron 4 Mg/2 Ml Vial) 4 mg IV-PUSH Q8H PRN PRN Reason: Nausea And Vomiting Stop: 06/12/25 00:33 Last Admin: 06/14/24 09:45 Dose: 4 mg Ondansetron HCl (Ondansetron 4 Mg/2 Ml Vial) 4 mg IV-PUSH Q6H PRN PRN Reason: Nausea And Vomiting Stop: 06/15/25 13:20 Pantoprazole Sodium (Pantoprazole 40 Mg Vial) 40 mg IV-PUSH DAILY [facility] Stop: 06/15/25 10:29 Last Admin: 06/16/24 08:55 Dose: 40 mg Potassium Chloride (Potassium Chloride Er 20 Meq Tab.Er.Prt) 20 meq PO DAILY PRN PRN Reason: Hypokalemia Stop: 06/12/25 00:33 Last Admin: 06/13/24 06:43 Dose: 20 meq Potassium Chloride (Potassium Chloride Er 20 Meq Tab.Er.Prt) 40 meq PO DAILY PRN PRN Reason: Hypokalemia Stop: 06/12/25 00:33 Potassium Chloride (Potassium Chloride Er 20 Meq Tab.Er.Prt) 40 meq PO STAT PRN PRN Reason: Hypokalemia Potassium Chloride (Potassium Chloride Liquid 20 Meq/15 Ml Udc) 40 meq PO DAILYPRN PRN Reason: Hypokalemia Stop: 06/15/25 06:42 Last Admin: 06/16/24 05:23 Dose: 40 meq Propofol (Propofol - Infusion Bolus 1,000 Mg/100 Ml Vial) 0 mg IV PROTOCOL PRN PRN Reason: Bolus Documentation Stop: 06/14/25 15:57 Sodium Chloride (Sodium Chloride 0.9 % 10 Ml Syringe) 0 ml IV-PUSH PRN PRN PRN Reason: Flush Stop: 06/13/25 10:28 Last Admin: 06/15/24 20:43 Dose: 10 ml Sodium Chloride (Sodium Chloride 0.9 % 10 Ml Syringe) 0 ml IV-PUSH PRN PRN PRN Reason: Flush Stop: 06/14/25 15:14 Sodium Chloride (Sodium Chloride 0.9 % 10 Ml Vial.Pf) 10 ml INJECTION DAILY [facility] Stop: 06/15/25 10:29 Last Admin: 06/16/24 08:55 Dose: 10 ml Sodium Chloride (Sodium Chloride 0.9 % 10 Ml Syringe) 10 ml IV-PUSH PRN PRN PRN Reason: Flush Stop: 06/15/25 10:09 Spironolactone (Spironolactone 25 Mg Tablet) 25 mg PO DAILY [facility] Stop: 06/16/25 08:59 Last Admin: 06/16/24 08:55 Dose: 25 mg Timolol Maleate (Timolol Mal 0.5% Op Soln 100 Drops/5 Ml Bottle) 1 drops EYE- BOTH DAILY [facility] Stop: 06/12/25 08:59 Last Admin: 06/16/24 08:55 Dose: 1 drops Allergies flecainide Allergy (Unknown, Verified 05/17/24 08:07) Hives Results - Nephrology Labs 06/16/24 04:20 06/16/24 04:20 Labs: 06/16/24 04:20 BUN 42 H Creatinine 1.58 H Albumin 3.6 Radiology Impressions Impressions - last 24 hours: Impressions Chest X-Ray 06/16/24 05:00 IMPRESSION: Unchanged chest. Impression dictated by: Giancarlo Hunt M.D.06/16/2024 8:14 AM Dictation Location: [place] [address] Any impression(s) listed above is documentation that was entered by the reading physician into a diagnostic report(s) for Lyric Juarez. I have reviewed the report(s) and am incorporating any findings in the treatment plan of this patient where applicable. A&P - Nephrology Assessment/Plan (1) Hyponatremia: Assessment/Problem Details: She appears to have a hyponatremia due to the combination of hypervolemia and SIADH. (2) CKD stage 3a, GFR 45-59 ml/min: Assessment/Problem Details: She has a CKD due to the DM and HTN with baseline serum creatinine around 1.1 mg/dL. Her renal function initially was worse due to the hypotension but improved with optimization of her hemodynamics. (3) Hypokalemia: Assessment/Problem Details: She has hypokalemia due to the diuretic induced renal potassium wasting. (4) Non-ST elevation (NSTEMI) myocardial infarction: Assessment/Problem Details: Patient also diagnosed to have a AZ. She was found to have a three-vessel disease. Medical management was recommended by cardiology. (5) Sepsis: Assessment/Problem Details: Patient present with a sepsis initially required vasopressors. She is off the vasopressors and currently on broad-spectrum antibiotic. (6) COVID-19: Assessment/Problem Details: Patient has COVID-19 infection. She is currently on steroids. Pulmonary has been following the patient. (7) Atrial fibrillation: Assessment/Problem Details: Patient has atrial fibrillation. Currently on metoprolol. (8) Warfarin-induced coagulopathy: Assessment/Problem Details: She has a supratherapeutic INR due to the Coumadin. She was given FFP and vitamin K. Plan * Her serum creatinine slightly went up but she is making adequate output. Will continue to monitor renal function closely. * Will give potassium chloride 40 mEq IV x 1 dose * Her serum sodium is within the acceptable range. No need for 3% saline. * Continue IV antibiotics and adjust as needed based on culture sensitivity. Pharmacy to dose medication based on EGFR. * Continue management of COVID-19 infection and sporty failure as per pulmonary. * Continue management of CAD and A-fib as per cardiology. * Check renal function daily and monitor serum sodium closely * Monitor input output Daily and daily weight. * Documented By: Elvis Philip MD 06/16/24 1234 Signed By: <Electronically signed by Elvis Philip MD> 06/16/24 1238 [facility] Work Phone: [phone]) 784-477702-06-2025 [place] [address] Cardiology Progress Note Signed Patient: Lyric Juarez MR#: [id number] : 1945 Acct:[id number] Age/Sex: 78 / F Adm Date: 5 Loc: Room: [address] [place] [address] Type: ADM IN Attending Dr: Jaron Hicks MD Copies to: ~ Date of Service: 06/16/2024 Subjective Principal diagnosis: Congestive heart failure/non-ST elevation myocardial infarction Interval history: Ms. Juarez is a 78 year old female with PMH significant for Permanent Afib on Coumadin, follows with Dr Cabrera, HTN, HLD, DM II, CKD who presented to [place] ER for 1 day history of weakness. She denied chest pain, dyspnea, palpitations, light headedness or syncope. She was found to have low grade feverand was in Afib with RVR. She tested positive for COVID and other labs were significant for hyponatremia of 123, serum creatinine of 1.4, lactate of 2.3, troponin 544--[id number]--[id number]. EKG showed atrial fibrillation with slow VR and a new left bundle branch block. 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 Overnight she had brief episode of syncope and weakness and she was found to be hypotensive with ablood pressure of 60/43. She received 2 L normal saline without improvement andwas transferred to the ICU and started on Levophed. This a.m. she is awake and alert, she denies any chest pain, dyspnea or palpitations. She remains on Levophed at 12 with a MAP of 73. Chest x-ray completed today shows cardiomegaly with left lobe airspace disease and a small left pleural effusion. Echo completed today shows LVEF of 35-40% with wall motion abnormalities suggestive of Takotsubo cardiomyopathy. RVSP 40-50 mmHg. Normal RV size with moderately reduced function. Cardiology follow-up 06/13/2024: Patient is resting comfortably in the ICU. She denies any dyspnea orchest pain. Her blood pressure is now elevated and heart rate exceeded 100 bpm atrial fibrillation.INR is 3.4. She is on heparin drip as well. The patient's renal function is stable except for having low sodium 124 mmol/L. Magnesium 1.6 mg/dL and supplements have been provided. Echocardiogram suggest evidence of severe left ventricular systolic dysfunction with akinesis of the anteroseptal and apical segment. This could be stress cardiomyopathy, however, underlying severe CAD cannot be excluded and therefore coronary angiography is going to be necessary. Since her INR is supratherapeutic the cardiac catheterization has been postponed till tomorrow. Will reverse the Coumadin defect with fresh frozen plasma tomorrow and proceed with cardiac catheterization. The patient is in agreement withthe plan. In the meantime we will need to have more aggressive treatment of hypertension and heart rate and because of this metoprolol be resumed and will add spironolactone. Will avoid WADE inhibitors, ARB or ARNI due to hyponatremia. Discussed the case with the patient and with Dr. Chanel Cardiology follow-up 06/14/2024: Patient is getting worse, her work of breathing is getting harder and cannot carry on a conversation with tachypnea. Chest x-ray demonstrated worsening compared to her initial film with more blunting of the costophrenic angles. Poor respiratory effort was noted. Her sodium is downto 223 mmol/L. Her transaminase is 10 times more what it was yesterday, creatinine is rising. Her sodium excretion is diminished. She is becoming moreanxious and remains tachycardic with atrial fibrillation. Despite receiving 2 units of FFP and 5 mg of oral vitamin K her INR has droppedto 2.6 only. Cardiac catheterization therefore could not be carried out. I discussed the case at [facility] with the patient's son and another lady who I believe his and discussed the case at lengthwith Dr. Chanel. Our recommendations were tointubate the patient and sedate her while mechanically ventilated allowing for things to settle down so that we can do cardiac catheterization comfortably and safely tomorrow morning after reversing Coumadin. They agreed and allowed us toproceed with this plan. More FFP will be provided this evening hoping that INR will be less than 2 tomorrow. The cardiac catheterization is tentatively scheduled for 8:00 tomorrow morning. Cardiology follow-up 06/15/2024: Patient was intubated last evening and remained stable overnight. Despite receiving FFP and vitamin K INR today is 2.9. Patient will receive more FFP's and 1 mg intravenous vitamin K today hoping to lower the INR to a safe range. Cardiac catheterization can be performed today. Liver enzymes worsened slightly compared to yesterday. Renal function slightly worsened aswell. She remains in atrial fibrillation with controlled rate and her blood pressure is normal. Chest x-ray is unchanged. Potassium was low 2.5 mmol/L and potassium supplement was provided. Sodium level is 25 mmol/L Cardiology follow-up 06/16/2024: Cardiac catheterization yesterday revealed severethree-vessel coronary disease not amenable for PCI or bypass surgery. She remains intubated with a plan to extubate today. She was given dobutamine aftercardiac catheterization which led to hypotension and tachycardia. This has beendiscontinued since. She remains sedated and on the ventilator. Liver function slightly better, renal function slightly worse. Sodium is better at 130 mmol/L and the potassium is down to 2.9 mmol/L. Since the patient is not a candidate for intervention and since her atrial fibrillation is chronic we will be no further attempts to restore normal sinus rhythm. Will initiate vasodilators with hydralazine and nitrates, 1 the sodium level is back to normal we can use standard therapy for systolic heart failure. Will continue spironolactone, beta-blockers, dual antiplatelet therapy and high intensity statin. Hopefully patient can be extubated in the next several hours. Exam Physical Exam Vital Signs: Temp Pulse Resp BP Pulse Ox O2 Del Method O2 Flow Rate 97.2 F L 71 17 109/71 100 Mechanical Ventilation 3 06/16/24 12:00 06/16/24 14:00 06/16/24 14:00 06/16/24 14:00 06/16/24 14:00 06/16/24 14:00 06/14/24 16:00 FiO2 30 06/16/24 14:00 Const General: cooperative, comfortable, no acute distress, in distress, anxious, ill appearing and other(Currently on the ventilator and sedated) Nutritional Appearance: overweight Orientation: alert, awake and oriented x3 HEENT Head: normal to inspection, normocephalic and atraumatic Ears: hearing grossly normal bilaterally Nose: external nose normal Face and sinus: normal facial exam Eyes Conjunctivae: conjunctivae normal Neck Neck: trachea midline Neck mass: No Thyroid: thyroid normal Carotids: normal carotid upstroke Resp Effort & Inspection: normal respiratory effort, decreased respiratory effort, grunting, labored, tachypneic and uses accessory muscles Auscultation: clear to auscultation bilaterally, crackles and diminished lung sounds Cardio Jugular venous pressure: no JVD Palpation: normal PMI Rate: regular rate and tachycardic Rhythm: abnormal rhythm irregularly irregular Heart Sounds: S1 normal and S2 normal GI Palpation: soft and no hepatosplenomegaly Auscultation: normal bowel sounds Extrem General: no clubbing, cyanosis or edema Objective Labs 06/16/24 04:20 06/16/24 04:20 Labs: Laboratory Results - last 24 hr 06/15/24 06/15/24 06/16/24 17:34 23:25 04:20 Corrected WBC 11.3 Uncorrected WBC Count 11.3 RBC 3.56 L Hgb 10.8 L Hct 31.7 L MCV 89.1 MCH 30.4 MCHC 34.1 RDW 14.6 Plt Count 239 MPV 8.7 Neut % (Auto) N/A Lymph % (Auto) N/A [place] % (Auto) N/A Eos % (Auto) N/A Baso % (Auto) N/A Nucleat RBC Rel Count N/A Neut # (Auto) N/A Lymph # (Auto) N/A [place] # (Auto) N/A Eos # (Auto) N/A Baso # (Auto) N/A Band Neutrophils % 10 H Lymphocytes % 6 L Monocytes % 11 Eosinophils % 1 Segmented Neutrophils 71 H Nucleated RBCs/100 WBC 3 H Reactive Lymphocytes 1 Platelet Estimate Normal Large Platelets Slight Giant Platelets 3 Plt Morphology Comment N/A RBC Morphology N/A Polychromasia Slight Poikilocytosis Slight Ovalocytes Slight Crenated Cell Slight PT 15.1 H INR 1.3 APTT 25.7 Sample Site ABG pH ABG pCO2 ABG pO2 ABG HCO3 ABG Total CO2 ABG O2 Saturation ABG O2 Content ABG Base Excess Set Respiration Rate Vent Mode FiO2 Tidal Volume PEEP Critical Value PHA Creatinine Clear 30.70 Sodium 130 L Potassium 2.9 L* Chloride 92 L Carbon Dioxide 26.4 Anion Gap 14.5 BUN 42 H Creatinine 1.58 H Est GFR (CKD-EPI) 33.306 Glucose 247 H POC Glucose 241 249 Calcium 8.5 L Magnesium 2.6 Total Bilirubin 0.9 AST 706 H ALT 1246 H Alkaline Phosphatase 162 H Total Protein 6.3 L Albumin 3.6 Globulin 2.7 Albumin/Globulin Ratio 1.3 06/16/24 06/16/24 04:55 11:25 Corrected WBC Uncorrected WBC Count RBC Hgb Hct MCV MCH MCHC RDW Plt Count MPV Neut % (Auto) Lymph % (Auto) [place] % (Auto) Eos % (Auto) Baso % (Auto) Nucleat RBC Rel Count Neut # (Auto) Lymph # (Auto) [place] # (Auto) Eos # (Auto) Baso # (Auto) Band Neutrophils % Lymphocytes % Monocytes % Eosinophils % Segmented Neutrophils Nucleated RBCs/100 WBC Reactive Lymphocytes Platelet Estimate Large Platelets Giant Platelets Plt Morphology Comment RBC Morphology Polychromasia Poikilocytosis Ovalocytes Crenated Cell PT INR APTT Sample Site Right brachial ABG pH 7.52 H ABG pCO2 28.9 L* ABG pO2 121.0 H* ABG HCO3 22.9 L ABG Total CO2 23.7 ABG O2 Saturation 98.0 ABG O2 Content 7.4 ABG Base Excess 0.8 Set Respiration Rate 10 Vent Mode Ac FiO2 30 Tidal Volume 350 PEEP 5 Critical Value PHA Creatinine Clear Sodium Potassium Chloride Carbon Dioxide Anion Gap BUN Creatinine Est GFR (CKD-EPI) Glucose POC Glucose 253 Calcium Magnesium Total Bilirubin AST ALT Alkaline Phosphatase Total Protein Albumin Globulin Albumin/Globulin Ratio ABG Interpretation ABG results: 06/16/24 04:55 ABG pH 7.52 H ABG pCO2 28.9 L* ABG pO2 121.0 H* ABG HCO3 22.9 L ABG Total CO2 23.7 ABG O2 Saturation 98.0 ABG O2 Content 7.4 ABG Base Excess 0.8 A&P - Cardiology (1) Hypokalemia: Assessment/Problem Details: Potassium level still low at 2.9 mmol/L Plan: Potassium supplements provided, will maintain potassium level above 4 mmol/L Code(s): E87.6 - Hypokalemia (2) Hyponatremia: Assessment/Problem Details: Level is increased up to 130 mmol/L Plan: Avoid WADE inhibitors/ARB's/ARNI Code(s): E87.1 - Hypo-osmolality and hyponatremia (3) COVID-19: Assessment/Problem Details: No evidence of pneumonia on chest x-ray Plan: Continue present treatment Code(s): U07.1 - COVID-19 (4) Permanent atrial fibrillation: Assessment/Problem Details: This is permanent, heart rate is under control Plan: No attempts for bahai of normal sinus rhythm, resume anticoagulation with Coumadin, maintain therapeutic treatment with Lovenox in the interim Code(s): I48.21 - Permanent atrial fibrillation (5) Left ventricular systolic dysfunction: Assessment/Problem Details: Ejection fraction is down to 25?30% due to severe ischemic cardiomyopathy Plan: Due to hyponatremia will avoid WADE inhibitor, ARB and ARNI, continue beta- blockers and spironolactone, start hydralazine and nitrates Code(s): I51.89 - Other ill-defined heart diseases (6) Non-ST elevation (NSTEMI) myocardial infarction: Assessment/Problem Details: Due to severe coronary artery disease Plan: Dual antiplatelet therapy, high intensity statin, no intervention Code(s): I21.4 - Non-ST elevation (NSTEMI) myocardial infarction (7) Dyslipidemia: Plan: High intensity statin Code(s): E78.5 - Hyperlipidemia, unspecified (8) Respiratory failure: Assessment/Problem Details: Currently on the ventilator Plan: Pulmonary medicine is following the patient daily, patient can be extubated Code(s): J96.90 - Respiratory failure, unspecified, unspecified whether with hypoxia or hypercapnia (9) Liver failure: Assessment/Problem Details: Transaminase is coming down Plan: Treat heart failure Code(s): K72.90 - Hepatic failure, unspecified without coma (10) 3-vessel coronary artery disease: Assessment/Problem Details: Cardiac catheterization revealed 100% occlusion of the proximal right coronary artery, 100% occlusion of the mid LAD and 95% occlusion of the mid left circumflex Plan: Medical therapy, dual antiplatelet therapy, beta-blockers, nitrates and spironolactone along with high intensity statin Code(s): I25.10 - Atherosclerotic heart disease of [place] coronary artery without angina pectoris Plan Assessment: Septic shock New LV dysfunction EF 35-40%-possible Takotsubo cardiomyopathy. NYHA I symptoms. Euvolemic on exam Elevated troponin 544--3123--[id number]. Possible type II AZ from COVID myocarditis vs Takotsubo cardiomyopathy. Cannot rule out type I AZ. Lactic acidosis Hyponatremia Transaminitis in the setting of shock Permanent A-fib on Coumadin. Currently in slow VR. Hypertension Hyperlipidemia Diabetes type 2 CKD Echo completed today shows LVEF of 35-40% with wall motion abnormalities suggestive of Takotsubo cardiomyopathy. RVSP 40-50 mmHg. Normal RV size with moderately reduced function. Recommendations: - Start heparin gtt for possible ACS. Pt will need ischemic evaluation to r/o CAD once stable from a sepsis standpoint. - Wean Levophed for MAP greater than 65 - Start ASA & Statin. GDMT when BP is stable off pressors. Avoid BB if remains in slow VR. Monitor telemetry for arrhythmias. - Will obtain Mixed venous gas to calculate assumed Enrique cardiac output. Transduce CVP to guide fluid status and management -Given persistent lactic acidosis and increasing pressor requirements, recommendadditional 1 L fluid bolus with close monitoring of sodium and respiratory status. - Sepsis management per ICU team. -Will follow Documented By: Frandy Cabrera MD, [facility] 5 1414 Signed By: 06/16/24 1420 [facility]02-06-2025 [place] [address] Pulmonology Progress Note Signed Patient: Lyric Juarez MR#: [id number] : 1945 Acct:[id number] Age/Sex: 78 / F Adm Date: 5 Loc: Room: [address] [place] [address] Type: ADM IN Attending Dr: Jaron Hicks MD Copies to: ~ Date of Service: 06/16/2024 Subjective Subjective Narrative: Patient was tried on Dobutamine overnight to improve cardiac output which was stopped due to RVR with atrial fibrillation. Note improvement in blood pressure with concerns for rate dependent blood pressure. Exam Physical Exam Vital Signs: Temp Pulse Resp BP Pulse Ox O2 Del Method O2 Flow Rate 97.4 F L 96 17 122/67 96 Mechanical Ventilation 3 06/16/24 04:00 06/16/24 07:00 06/16/24 07:00 06/16/24 07:00 06/16/24 07:00 06/16/24 08:00 06/14/24 16:00 FiO2 30 06/16/24 08:00 Const General: cooperative Nutritional Appearance: average body habitus Orientation: alert and awake HEENT Head: normal to inspection Ears: hearing grossly normal bilaterally and external ears normal Nose: external nose normal Face and sinus: normal facial exam Eyes Sclera: sclerae normal Neck Neck: normal visual inspection (right internal jugular central venous catheter with dressing intact) Chest Chest palpation & inspection: normal inspection of the chest Resp Effort & Inspection: normal respiratory effort Auscultation: clear to auscultation bilaterally, diminished lung sounds, no rales, no rhonchi and wheezes expiratory wheezes (bilateral) Cardio Rate: tachycardic Rhythm: abnormal rhythm irregularly irregular Heart Sounds: S1 normal, S2 normal and no murmurs GI Inspection: normal to inspection Palpation: soft and nontender Rectal Exam: deferred General: deferred Skin General: no rashes or lesions noted (Warm and dry) Extrem General: no pedal edema Objective Intake and Output I&O - Last 24 Hours: Intake & Output 06/15/24 06/16/24 06/16/24 23:59 07:59 15:59 Intake Total 130 / 1640 30 / 30 Output Total 950 / 2275 1050 / 1050 Balance -820 / -635 -1020 / -1020 Weight 82 kg Labs 06/16/24 04:20 06/16/24 04:20 Microbiology Micro: Microbiology 3 06/12/24 05:56 Blood Culture - Preliminary Blood - Right Hand No Growth 4 Days 06/12/24 06:05 Blood Culture - Preliminary Blood - Left Hand No Growth 4 Days Imaging and Cardiology Chest x-ray: Status: image reviewed by me Additional comments: Date of Service: 06/16/24 XR/XR chest 1V portable: respiratory failure XR chest 1V portable 06/16/2024 4:36 AM SIGNS AND SYMPTOMS: respiratory failure PROTOCOL: Frontal radiograph of the chest COMPARISON: 06/15/2024 FINDINGS: The trachea is midline. The ET tube, enteric tube, and right IJ line are in satisfactory position. The heart and mediastinal structures are within normal limits. There is redemonstration of a pleural-parenchymal opacity at the left lung base. The bony thorax is intact. XR/XR chest 1V portable IMPRESSION: Unchanged chest. Additional Results Results Comments: 06/16/24 04:55 ABG pH 7.52 H ABG pCO2 28.9 L* ABG pO2 121.0 H* ABG HCO3 22.9 L ABG Total CO2 23.7 ABG O2 Saturation 98.0 ABG O2 Content 7.4 ABG Base Excess 0.8 /07/10 Assessment/Plan Assessment/Plan (1) Sepsis: (2) Atrial fibrillation: (3) COVID-19: (4) Acute kidney injury: (5) Bradycardia: (6) Elevated troponin: (7) Hyponatremia: Plan Hospital day #5, right internal jugular central venous catheter day #3, ventilator day #2 for patient admitted for hypotension, atrial fibrillation withRVR with subsequent junctional bradycardia withpossible Takatsubo's cardiomyopathy on echocardiogram (EF about 35%) with incidental finding of COVI Dpositive status. Cardiac catheterization and optimization of hemodynamics/renalfunction. Patient is also noted to have Group B Strep in urine on ceftriaxone. * Stop mucomyst * Await cardiology input regarding whether there would be any need for cardioversion to improve cardiac function with severe CAD and presumably ischemic cardiomyopathy * continue supportive care and would consider retrying dobutamine or consider milrinone * stop steroids as suspect wheezing was primarily cardiac in nature * decrease ceftriaxone to 1 gram daily for group B strep in urine with blood cultures at [place] negative x 4 days Documented By: Reilly Chanel MD 5 [id number] Signed By: 06/16/24 1308 [facility]02-06-2025 [place] [address] Nephrology Progress Note Signed Patient: Lyric Juarez MR#: [id number] : 1945 Acct:[id number] Age/Sex: 78 / F Adm Date: 5 Loc: Room: 4S6768-1 Type: ADM IN Attending Dr: Jaron Hicks MD Copies to: ~ Date of Service: 06/16/2024 Subjective Subjective Narrative: This is a 78-year-old female with medical history of atrial fibrillation, HTN, DM, CKD, HLD was presented to the [facility] after a fall. On evaluationin emergency room she was found to have afever with tachycardia. Her EKG showed A-fib with RVR and was given normal saline fluid boluses to improve her heart rate. She was transferred to the [facility] for sepsis management. Patient after arrival at [facility] was found to have a hypotension with a fall. She was given a normal saline bolus but due to the persistent hypotension she was moved to the intensive care unit and was started on Levophed. She was also given broad-spectrum antibioticsfor sepsis. Patient was also found to have a non-ST elevated AZ and cardiology was consulted. She had echocardiogram which showed EF 35 to 40% moderate pulmonary hypertension and dilated IVC. Cardiology also recommended a cardiac catheterization. Patient was also found to have a hyponatremia with serum sodium 123 to 124 mmol/L. She was given Bumex to improve her respiratory status. Nephrology is consulted for her hyponatremia management and CARMEN and risk stratification and prophylaxis. Interim history Patient was seen and examined at bedside. Patient underwent CAR-T catheterization yesterday and wasfound to have a three-vessel disease. Patientis not a suitable candidate for PCI or CABG. Cardiology recommended medical management. She continues to have a good urine output. Exam Physical Exam Vital Signs: Temp Pulse Resp BP Pulse Ox O2 Del Method O2 Flow Rate 97.3 F L 87 22 129/78 98 Mechanical Ventilation 3 06/16/24 08:00 06/16/24 11:00 06/16/24 11:00 06/16/24 11:00 06/16/24 11:06/16/24 11:06/14/24 16:00 FiO2 30 06/16/24 11:00 Narrative: General: Appears comfortable and not in distress Heart: S1-S2, no rub Lung: Bilateral air entry, no wheezing or crackles Abdomen: Soft, positive bowel sounds Extremities: Trace edema, no cyanosis Head: Atraumatic, normocephalic Ear: No external ear redness or tenderness Eyes: No pallor or redness Neck: Trachea is midline or no visible mass Skin: No rashes , warm to touch ANTISQUEAK FILLER: Intubated and sedated Musculoskeletal: No swelling or limitation of movement of the large joints Objective Intake and Output I&O: Intake & Output 06/13/24 06/14/24 06/15/24 06/16/24 23:59 23:59 23:59 23:59 Intake Total 2305 / 2305 1375 / 1375 1640 / 1640 130 / 130 Output Total 2150 / 2150 1650 / 1650 2275 / 2275 1050 / 1050 Balance 155 / 155 -275 / -275 -635 / -635 -920 / -920 Weight 81.4 kg 80.2 kg 80.2 kg 82 kg Meds and Allergies Meds: Active Medications Acetaminophen (Acetaminophen 325 Mg Tablet) 650 mg PO Q6HR PRN PRN Reason: Pain Scale 1 - 3 or fever Stop: 06/12/25 00:33 Albuterol (Albuterol Hfa 200 Puff/18 Gm Inhaler) 6 puff VENT Q6HR [facility] Stop: 06/14/25 17:59 Last Admin: 06/16/24 11:00 Dose: 6 puff Albuterol/Ipratropium (Ipratropium/Albuterol 0.5-3 Mg 3 Ml Ampul.Neb) 3 ml INHALATION Q6H PRN PRN Reason: SOB OR WHEEZING Stop: 06/12/25 18:14 Last Admin: 06/13/24 08:53 Dose: 3 ml Aspirin (Aspirin 81 Mg Tab.Chew) 81 mg PO DAILY [facility] Stop: 06/12/25 09:59 Last Admin: 06/16/24 08:54 Dose: 81 mg Benzonatate (Benzonatate 100 Mg Capsule) 200 mg PO TID PRN PRN Reason: Cough Stop: 06/12/25 18:16 Last Admin: 06/13/24 17:54 Dose: 200 mg Chlorhexidine Gluconate (Chlorhexidine Gluconate 0.12% 15 Ml Udc) 15 ml MUCOUS MEM BID [facility] Stop: 06/14/25 20:59 Last Admin: 06/16/24 09:48 Dose: 15 ml Clopidogrel Bisulfate (Clopidogrel Bisulfate 75 Mg Tablet) 75 mg PO DAILY [facility] Stop: 06/14/25 08:59 Last Admin: 06/16/24 08:54 Dose: 75 mg Dextrose (Dextrose 50% In Water 25 Gm/50 Ml Syringe) 0 gm IV-PUSH PRN PRN PRN Reason: Hypoglycemia Stop: 06/12/25 00:39 Dorzolamide HCl (Dorzolamide 2% Op Soln 200 Drops/10 Ml Bottle) 1 drops EYE-BOTH DAILY [facility] Stop: 06/12/25 08:59 Last Admin: 06/16/24 08:55 Dose: 1 drops Enoxaparin Sodium (Enoxaparin 40 Mg/0.4 Ml Syringe) 40 mg SUBCUT DAILY@1000 [facility] Stop: 06/16/25 09:59 Last Admin: 06/16/24 11:28 Dose: 40 mg Glucose (Dextrose 40% Gel 15 Gm Tube) 0 gm PO PRN PRN PRN Reason: Hypoglycemia Stop: 06/12/25 00:39 Magnesium Sulfate (Magnesium Sulf 2gm-*Swfi*) 2 gm in 50 mls @ 25 mls/hr IV DAILY PRN PRN Reason: Magnesium Level < 1.5 Stop: 06/12/25 00:33 Last Infusion: 06/13/24 19:00 Dose: Infused Sodium Chloride (0.9% Sodium Chloride 500 Ml) 500 mls @ 0 mls/hr IV .Q0M [facility] Stop: 06/12/25 12:59 Last Admin: 06/14/24 09:39 Dose: 10 mls/hr Propofol (Diprivan) 1,000 mg in 100 mls @ 9.624 mls/hr IV .[id number] [facility]; Protocol Stop: 06/14/25 15:59 Last Admin: 06/16/24 08:54 Dose: 20 mcg/kg/min, 9.62 mls/hr Dobutamine HCl/Dextrose (Dobutamine 500mg-*D5w*) 500 mg in 250 mls @ 4.812 mls/hr IV .Q24H [facility]; Protocol Stop: 06/15/25 18:59 Last Titration: 06/16/24 05:55 Dose: 0 mcg/kg/min, 0 mls/hr Potassium Chloride 40 meq/ (Sodium Chloride) 100 mls @ 25 mls/hr IV ONCE ONE Stop: 06/16/24 13:29 Last Admin: 06/16/24 09:48 Dose: 25 mls/hr Ceftriaxone Sodium (Rocephin) 1 gm in 50 mls @ 100 mls/hr IV Q24H [facility] Insulin Aspart (Insulin Aspart 300 Units/3 Ml) 0 units SUBCUT Q6HR [facility]; Protocol Stop: 06/14/25 17:59 Last Admin: 06/16/24 11:26 Dose: 3 units Melatonin (Melatonin 5 Mg Tablet) 5 mg PO QHS [facility] Stop: 06/13/25 21:59 Last Admin: 06/15/24 21:58 Dose: Not Given Methylprednisolone Sodium Succinate (Methylprednisolone Sod Succ/Pf 40 Mg/Ml (1ml) Vial) 40 mg IV-PUSH Q12HR [facility] Stop: 06/13/25 19:59 Last Admin: 06/16/24 08:55 Dose: 40 mg Metoprolol Tartrate (Metoprolol Tartrate 25 Mg Tablet) 25 mg PO BID [facility] Stop: 06/13/25 09:34 Last Admin: 06/16/24 08:55 Dose: 25 mg Metoprolol Tartrate (Metoprolol Tartrate 5 Mg/5 Ml Vial) 5 mg IV-PUSH Q6H PRN PRN Reason: Heart Rate- High Stop: 06/13/25 15:19 Last Admin: 06/14/24 00:00 Dose: 5 mg Miscellaneous Information (Consult To Pharmacy) 1 each MISCELLANE .PHACONSULT PRN; Protocol PRN Reason: ESA.Pharmacy Consult Stop: 06/17/24 13:20 Morphine Sulfate (Morphine Sulfate 4 Mg/Ml Cartridge) 4 mg IV-PUSH Q20M PRN PRN Reason: Chest Pain Nitroglycerin (Nitroglycerin 0.4 Mg Tab.Subl) 0.4 mg SUBLINGUAL Q5M PRN PRN Reason: Chest Pain Stop: 06/15/25 13:20 Ondansetron HCl (Ondansetron 4 Mg/2 Ml Vial) 4 mg IV-PUSH Q8H PRN PRN Reason: Nausea And Vomiting Stop: 06/12/25 00:33 Last Admin: 06/14/24 09:45 Dose: 4 mg Ondansetron HCl (Ondansetron 4 Mg/2 Ml Vial) 4 mg IV-PUSH Q6H PRN PRN Reason: Nausea And Vomiting Stop: 06/15/25 13:20 Pantoprazole Sodium (Pantoprazole 40 Mg Vial) 40 mg IV-PUSH DAILY [facility] Stop: 06/15/25 10:29 Last Admin: 06/16/24 08:55 Dose: 40 mg Potassium Chloride (Potassium Chloride Er 20 Meq Tab.Er.Prt) 20 meq PO DAILY PRN PRN Reason: Hypokalemia Stop: 06/12/25 00:33 Last Admin: 06/13/24 06:43 Dose: 20 meq Potassium Chloride (Potassium Chloride Er 20 Meq Tab.Er.Prt) 40 meq PO DAILY PRN PRN Reason: Hypokalemia Stop: 06/12/25 00:33 Potassium Chloride (Potassium Chloride Er 20 Meq Tab.Er.Prt) 40 meq PO STAT PRN PRN Reason: Hypokalemia Potassium Chloride (Potassium Chloride Liquid 20 Meq/15 Ml Udc) 40 meq PO DAILYPRN PRN Reason: Hypokalemia Stop: 06/15/25 06:42 Last Admin: 06/16/24 05:23 Dose: 40 meq Propofol (Propofol - Infusion Bolus 1,000 Mg/100 Ml Vial) 0 mg IV PROTOCOL PRN PRN Reason: Bolus Documentation Stop: 06/14/25 15:57 Sodium Chloride (Sodium Chloride 0.9 % 10 Ml Syringe) 0 ml IV-PUSH PRN PRN PRN Reason: Flush Stop: 06/13/25 10:28 Last Admin: 06/15/24 20:43 Dose: 10 ml Sodium Chloride (Sodium Chloride 0.9 % 10 Ml Syringe) 0 ml IV-PUSH PRN PRN PRN Reason: Flush Stop: 06/14/25 15:14 Sodium Chloride (Sodium Chloride 0.9 % 10 Ml Vial.Pf) 10 ml INJECTION DAILY [facility] Stop: 06/15/25 10:29 Last Admin: 06/16/24 08:55 Dose: 10 ml Sodium Chloride (Sodium Chloride 0.9 % 10 Ml Syringe) 10 ml IV-PUSH PRN PRN PRN Reason: Flush Stop: 06/15/25 10:09 Spironolactone (Spironolactone 25 Mg Tablet) 25 mg PO DAILY [facility] Stop: 06/16/25 08:59 Last Admin: 06/16/24 08:55 Dose: 25 mg Timolol Maleate (Timolol Mal 0.5% Op Soln 100 Drops/5 Ml Bottle) 1 drops EYE- BOTH DAILY [facility] Stop: 06/12/25 08:59 Last Admin: 06/16/24 08:55 Dose: 1 drops Allergies flecainide Allergy (Unknown, Verified 05/17/24 08:07) Hives Results - Nephrology Labs 06/16/24 04:20 06/16/24 04:20 Labs: 06/16/24 04:20 BUN 42 H Creatinine 1.58 H Albumin 3.6 Radiology Impressions Impressions - last 24 hours: Impressions Chest X-Ray 06/16/24 05:00 IMPRESSION: Unchanged chest. Impression dictated by: Giancarlo Hunt M.D.06/16/2024 8:14 AM Dictation Location: [place] [address] Any impression(s) listed above is documentation that was entered by the reading physician into a diagnostic report(s) for Lyric Juarez. I have reviewed the report(s) and am incorporating any findings in the treatment plan of this patient where applicable. A&P - Nephrology Assessment/Plan (1) Hyponatremia: Assessment/Problem Details: She appears to have a hyponatremia due to the combination of hypervolemia and SIADH. (2) CKD stage 3a, GFR 45-59 ml/min: Assessment/Problem Details: She has a CKD due to the DM and HTN with baseline serum creatinine around 1.1 mg/dL. Her renal function initially was worse due to the hypotension but improved with optimization of her hemodynamics. (3) Hypokalemia: Assessment/Problem Details: She has hypokalemia due to the diuretic induced renal potassium wasting. (4) Non-ST elevation (NSTEMI) myocardial infarction: Assessment/Problem Details: Patient also diagnosed to have a [place]. She was found to have a three-vessel disease. Medical management was recommended by cardiology. (5) Sepsis: Assessment/Problem Details: Patient present with a sepsis initially required vasopressors. She is off the vasopressors and currently on broad-spectrum antibiotic. (6) COVID-19: Assessment/Problem Details: Patient has COVID-19 infection. She is currently on steroids. Pulmonary has been following the patient. (7) Atrial fibrillation: Assessment/Problem Details: Patient has atrial fibrillation. Currently on metoprolol. (8) Warfarin-induced coagulopathy: Assessment/Problem Details: She has a supratherapeutic INR due to the Coumadin. She was given FFP and vitamin K. Plan * Her serum creatinine slightly went up but she is making adequate output. Will continue to monitorrenal function closely. * Will give potassium chloride 40 mEq IV x 1 dose * Her serum sodium is within the acceptable range. No need for 3% saline. * Continue IV antibiotics and adjust as needed based on culture sensitivity. Pharmacy to dose medication based on EGFR. * Continue management of COVID-19 infection and sporty failure as per pulmonary. * Continue management of CAD and A-fib as per cardiology. * Check renal function daily and monitor serum sodium closely * Monitor input output Daily and daily weight. * Documented By: Elvis Philip MD 06/16/24 1234 Signed By: 06/16/24 1238 [facility]02-05-2025 Progress note Author Jaron Hicks [facility] Note Date/Time June 15, 2024 5 :59pm [facility] [address] [place] [address] Hospitalist Progress Note Signed Patient: Lyric Juarez MR#: [id number] : 1945 Acct:[id number] Age/Sex: 78 / F Adm Date: 5 Loc: Room: [address] [place] [address] Type: ADM IN Attending Dr: Jaron Hicks MD Copies to: ~ Date of Service: 06/15/2024 Subjective Subjective Narrative: Assessment And Plan 78F with history of atrial fibrillation, HTN, HLD, DM, CKD, Afib, and URSULA who presented to [place] ED presented after dizziness associated with a fall and was transferred for possible UTI /sepsis Rule out Septic shock - resolved lactic acidosis - resolved the patient is afebrile there is no significant leukocytosis . Pulmonary was consulted She was started on Zosyn/vancomycin empirically and required norepinephrine drip despite appropriate IV fluids Influenza A and B Antigen [place] [facility] negative Blood Cx at [place] [facility] 06/11 no growth at 36-48h UA [place] [facility] with WBC < 10 blood culture 06/12 negative so far Lactic acidosis could be related to metformin use; her shock could be more cardiogenic Covid19 infection she found with Hypoxia ABG shows no hypercapnia SARS-CoV-2 Ag positive at [facility] CXR shows left lower lobe airspace disease and small left pleural effusion. IV steroids Breathing Tx as needed Pulmonary recommendation appreciated ventilator dependence she was intubated since she can't lay flat for the LHC Afib RVR - resolved She Presented with A-fib with rapid ventricular rate to [place] ED. Currently slow rate Hyponatremia Na remains low 124 asymptomatic not improving. Urine Osmolality 583, Urine Na 18 BMP in am nephrology recommendation appreciated KARIS Cr 1.4 on admission, Cr is up today to 1.4 nephrology on consult Rule out NSTEMI Troponin is > 10K Echo shoes EF 40% . Takotsubo Syndrome, Mild AR , RVSP 40-50mmHg Started on heparin gtt for possible ACS ASA Cardiology was consulted, recommendation appreciated. she underwent LHC today Elevated LFTs ischemic hepatitis AST/ALT elevated . TB wnl Likely due to shock ischemic hepatitis Hold on statin CMP in am agree with hepatitis C and b testing GI recommendation appreciated coagulopathy INR up to 5.1; she was given Vit K and FFP to reverse INR for cardiac catheterization INR in am Hypomagnesemia Mg 1.1 on admission Replaced as needed DM blood sugars were reviewed (uncontrolled due to steroids) sliding scale insulin and accuchecks. hold oral antidiabetic medication/metformin. Fall CT head/brain wo con ( [place] [facility]) shows no acute finding CT cervical spine wo con ([facility]) shows No acute cervical spinal fracture CXR ([facility]) no acute finding LINTERVAL HPI: As Above, Pt resting in bed. remain intubated . Chronic diseases: Unless mentioned Above, Essential home medications have been continued. DVT Px: Addressed Disposition: To be determined Plan of care Discussed with: the medical team, the family at bedside L Exam Physical Exam Vital Signs: Temp Pulse Resp BP Pulse Ox O2 Del Method O2 Flow Rate 36.1 C L 73 19 108/62 98 Mechanical Ventilation 3 06/15/24 14:36 06/15/24 15:36 06/15/24 15:36 06/15/24 15:36 06/15/24 15:36 06/15/24 15:36 06/14/24 16:00 FiO2 30 06/15/24 16:00 Narrative: GEN: NAD, intubated LUNGS: diminished breathing sounds mild scattered wheezing on MV CV: nl S1 S2; no M/R/G ABD: Soft, ND, NT, + BS, EXT: No peripheral edema, No calf muscle tenderness NEURO: intubated PSYCH: intubated Objective Lab Results 06/15/24 05:00 06/15/24 10:55 Microbiology Results Microbiology 06/12/24 05:56 Blood - Right Hand Blood Culture - Preliminary No Growth 3 Days 06/12/24 06:05 Blood - Left Hand Blood Culture - Preliminary No Growth 3 Days ABG Interpretation ABG results: 06/15/24 04:48 ABG pH 7.56 H ABG pCO2 26.3 L* ABG pO2 111.9 H ABG HCO3 22.9 L ABG Total CO2 23.7 ABG O2 Saturation 98.1 ABG O2 Content 6.9 ABG Base Excess 1.6 Meds Allergies and Active Meds Allergies flecainide Allergy (Unknown, Verified 05/17/24 08:07) Hives Active Meds: Active Medications Generic Name Dose Route Start Last Admin Trade Name Freq PRN Reason Stop Dose Admin Acetaminophen 650 mg 06/12/24 00:34 Acetaminophen 325 Mg Tablet PO 06/12/25 00:33 Q6HR PRN Pain Scale 1 - 3 or fever Acetylcysteine 600 mg 06/15/24 09:00 06/15/24 08:43 Acetylcysteine 20% 4 Ml 200 Mg/Ml Vial PO 06/13/25 16:29 600 mg BID ERNESTINA Administration Albuterol 6 puff 06/14/24 18:00 06/15/24 15:17 Albuterol Hfa 200 Puff/18 Gm Inhaler VENT 06/14/25 17:59 Not Given Q6HR [facility] Albuterol/Ipratropium 3 ml 06/12/24 18:03 06/13/24 08:53 Ipratropium/Albuterol 0.5-3 Mg 3 Ml Ampul.Neb INHALATION 06/12/25 18:14 3 ml Q6H PRN Administration SOB OR WHEEZING Aspirin 81 mg 06/12/24 10:00 06/15/24 08:18 Aspirin 81 Mg Tab.Chew PO 06/12/25 09:59 81 mg DAILY ER[facility] Administration Benzonatate 200 mg 06/12/24 18:17 06/13/24 17:54 Benzonatate 100 Mg Capsule PO 06/12/25 18:16 200 mg TID PRN Administration Cough Chlorhexidine Gluconate 15 ml 06/14/24 21:00 06/15/24 08:18 Chlorhexidine Gluconate 0.12% 15 Ml Udc MUCOUS MEM 06/14/25 20:59 15 ml BID ERNESTINA Administration Clopidogrel Bisulfate 75 mg 06/14/24 09:00 06/15/24 08:18 Clopidogrel Bisulfate 75 Mg Tablet PO 06/14/25 08:59 75 mg DAILY [facility] Administration Dextrose 0 gm 06/12/24 00:40 Dextrose 50% In Water 25 Gm/50 Ml Syringe IV-PUSH 06/12/25 00:39 PRN PRN Hypoglycemia Dorzolamide HCl 1 drops 06/12/24 09:00 06/15/24 08:19 Dorzolamide 2% Op Soln 200 Drops/10 Ml Bottle EYE-BOTH 06/12/25 08:59 1 drops DAILY ER[facility] Administration Glucose 0 gm 06/12/24 00:40 Dextrose 40% Gel 15 Gm Tube PO 06/12/25 00:39 PRN PRN Hypoglycemia Magnesium Sulfate 2 gm in 50 mls @ 25 mls/hr 06/12/24 00:34 06/13/24 19:00 Magnesium Sulf 2gm-*Swfi* IV 06/12/25 00:33 Infused DAILY PRN Infusion Magnesium Level < 1.5 Sodium Chloride 500 mls @ 0 mls/hr 06/12/24 13:00 06/14/24 09:39 0.9% Sodium Chloride 500 Ml IV 06/12/25 12:59 10 mls/hr .Q0M [facility] Administration Per Protocol Propofol 1,000 mg in 100 mls @ 9.624 mls/hr 06/14/24 16:00 06/15/24 15:25 Diprivan IV 06/14/25 15:59 20 mcg/kg/min .[id number] ERNESTINA 9.62 mls/hr Administration Protocol 20 MCG/KG/MIN Sodium Chloride 100 mls @ 20 mls/hr 06/15/24 07:01 0.9% Sodium Chloride 100 Ml IV 06/16/24 07:00 PROTOCOL PRN BLOOD TRANSFUSION Ceftriaxone Sodium 2 gm in 50 mls @ 100 mls/hr 06/15/24 14:00 06/15/24 15:22 Rocephin IV 100 mls/hr Q24H [facility] Administration Dextrose/Sodium Chloride 1,000 mls @ 50 mls/hr 06/15/24 13:30 06/15/24 15:58 5 % Dextrose-0.45 % Nacl IV 06/15/24 23:30 Not Given .Q20H [facility] Insulin Aspart 0 units 06/14/24 18:00 06/15/24 11:33 Insulin Aspart 300 Units/3 Ml SUBCUT 06/14/25 17:59 2 units Q6HR [facility] Administration Protocol Melatonin 5 mg 06/13/24 22:00 06/14/24 21:19 Melatonin 5 Mg Tablet PO 06/13/25 21:59 Not Given QHS [facility] Methylprednisolone Sodium Succinate 40 mg 06/13/24 20:00 06/15/24 08:18 Methylprednisolone Sod Succ/Pf 40 Mg/Ml (1ml) Vial IV-PUSH 06/13/25 19:59 40 mg Q12HR [facility] Administration Metoprolol Tartrate 25 mg 06/13/24 09:35 06/15/24 08:18 Metoprolol Tartrate 25 Mg Tablet PO 06/13/25 09:34 25 mg BID ERNESTINA Administration Metoprolol Tartrate 5 mg 06/13/24 15:20 06/14/24 00:00 Metoprolol Tartrate 5 Mg/5 Ml Vial IV-PUSH 06/13/25 15:19 5 mg Q6H PRN Administration Heart Rate- High Miscellaneous Information 1 each 06/15/24 13:21 Consult To Pharmacy MISCELLANE 06/17/24 13:20 .PHACONSULT PRN ZZ.Pharmacy Consult Protocol Morphine Sulfate 4 mg 06/15/24 13:21 Morphine Sulfate 4 Mg/Ml Cartridge IV-PUSH Q20M PRN Chest Pain Nitroglycerin 0.4 mg 06/15/24 13:21 Nitroglycerin 0.4 Mg Tab.Subl SUBLINGUAL 06/15/25 13:20 Q5M PRN Chest Pain Ondansetron HCl 4 mg 06/12/24 00:34 06/14/24 09:45 Ondansetron 4 Mg/2 Ml Vial IV-PUSH 06/12/25 00:33 4 mg Q8H PRN Administration Nausea And Vomiting Ondansetron HCl 4 mg 06/15/24 13:21 Ondansetron 4 Mg/2 Ml Vial IV-PUSH 06/15/25 13:20 Q6H PRN Nausea And Vomiting Pantoprazole Sodium 40 mg 06/15/24 10:30 06/15/24 10:41 Pantoprazole 40 Mg Vial IV-PUSH 06/15/25 10:29 40 mg DAILY ERNESTINA Administration Potassium Chloride 20 meq 06/12/24 00:34 06/13/24 06:43 Potassium Chloride Er 20 Meq Tab.Er.Prt PO 06/12/25 00:33 20 meq DAILY PRN Administration Hypokalemia Potassium Chloride 40 meq 06/12/24 00:34 Potassium Chloride Er 20 Meq Tab.Er.Prt PO 06/12/25 00:33 DAILY PRN Hypokalemia Potassium Chloride 40 meq 06/15/24 07:00 Potassium Chloride Er 20 Meq Tab.Er.Prt PO STAT PRN Hypokalemia Potassium Chloride 40 meq 06/15/24 06:43 06/15/24 06:55 Potassium Chloride Liquid 20 Meq/15 Ml Udc PO 06/15/25 06:42 40 meq DAILY PRN Administration Hypokalemia Propofol 0 mg 06/14/24 15:58 Propofol - Infusion Bolus 1,000 Mg/100 Ml Vial IV 06/14/25 15:57 PROTOCOL PRN Bolus Documentation Sodium Chloride 0 ml 06/13/24 10:29 06/15/24 10:46 Sodium Chloride 0.9 % 10 Ml Syringe IV-PUSH 06/13/25 10:28 10 ml PRN PRN Administration Flush Sodium Chloride 0 ml 06/14/24 15:15 Sodium Chloride 0.9 % 10 Ml Syringe IV-PUSH 06/14/25 15:14 PRN PRN Flush Sodium Chloride 10 ml 06/15/24 10:30 06/15/24 10:41 Sodium Chloride 0.9 % 10 Ml Vial.Pf INJECTION 06/15/25 10:29 10 ml DAILY ERNESTINA Administration Sodium Chloride 10 ml 06/15/24 10:10 Sodium Chloride 0.9 % 10 Ml Syringe IV-PUSH 06/15/25 10:09 PRN PRN Flush Spironolactone 25 mg 06/16/24 09:00 Spironolactone 25 Mg Tablet PO 06/16/25 08:59 DAILY ERNESTINA Timolol Maleate 1 drops 06/12/24 09:00 06/15/24 08:20 Timolol Mal 0.5% Op Soln 100 Drops/5 Ml Bottle EYE-BOTH 06/12/25 08:59 1 drops DAILY [facility] Administration A&P - Hospitalist Assessment/Plan (1) COVID-19: Plan Documented By: Jaron Hicks MD 06/15/24 3303 Signed By: <Electronically signed by Jaron Hicks MD> 06/15/24 2674 [facility] Work Phone: [phone] [address] Hospitalist Progress Note Signed Patient: Lyric Juarez MR#: [id number] : 1945 Acct:[id number] Age/Sex: 78 / F Adm Date: 5 Loc: Room: [address] [place] [address] Type: ADM IN Attending Dr: Jaron Hicks MD Copies to: ~ Date of Service: 06/15/2024 Subjective Subjective Narrative: Assessment And Plan 78F with history of atrial fibrillation, HTN, HLD, DM, CKD, Afib, and URSULA who presented to [facility] presented after dizziness associated with a fall and was transferred for possible UTI /sepsis Rule out Septic shock - resolved lactic acidosis - resolved the patient is afebrile there is no significant leukocytosis . Pulmonary was consulted She was started on Zosyn/vancomycin empirically and required norepinephrine drip despite appropriate IV fluids Influenza A and B Antigen [place] [facility] negative Blood Cx at [place] [facility] 06/11 no growth at 36-48h UA [place] [facility] with WBC < 10 blood culture 06/12 negative so far Lactic acidosis could be related to metformin use; her shock could be more cardiogenic Covid19 infection she found with Hypoxia ABG shows no hypercapnia SARS-CoV-2 Ag positive at [facility] CXR shows left lower lobe airspace disease and small left pleural effusion. IV steroids Breathing Tx as needed Pulmonary recommendation appreciated ventilator dependence she was intubated since she can't lay flat for the [facility] Afib RVR - resolved She Presented with A-fib with rapid ventricular rate to [place] [facility]. Currently slow rate Hyponatremia Na remains low 124 asymptomatic not improving. Urine Osmolality 583, Urine Na 18 BMP in am nephrology recommendation appreciated KARIS Cr 1.4 on admission, Cr is up today to 1.4 nephrology on consult Rule out NSTEMI Troponin is > 10K Echo shoes EF 40% . Takotsubo Syndrome, Mild AR , RVSP 40-50mmHg Started on heparin gtt for possible ACS ASA Cardiology was consulted, recommendation appreciated. she underwent LHC today Elevated LFTs ischemic hepatitis AST/ALT elevated . TB wnl Likely due to shock ischemic hepatitis Hold on statin CMP in am agree with hepatitis C and b testing GI recommendation appreciated coagulopathy INR up to 5.1; she was given Vit K and FFP to reverse INR for cardiac catheterization INR in am Hypomagnesemia Mg 1.1 on admission Replaced as needed DM blood sugars were reviewed (uncontrolled due to steroids) sliding scale insulin and accuchecks. hold oral antidiabetic medication/metformin. Fall CT head/brain wo con ( [place] [facility]) shows no acute finding CT cervical spine wo con ([facility]) shows No acute cervical spinal fracture CXR ([facility]) no acute finding LINTERVAL HPI: As Above, Pt resting in bed. remain intubated . Chronic diseases: Unless mentioned Above, Essential home medications have been continued. DVT Px: Addressed Disposition: To be determined Plan of care Discussed with: the medical team, the family at bedside L Exam Physical Exam Vital Signs: Temp Pulse Resp BP Pulse Ox O2 Del Method O2 Flow Rate 36.1 C L 73 19 108/62 98 Mechanical Ventilation 3 06/15/24 14:36 06/15/24 15:36 06/15/24 15:36 06/15/24 15:36 06/15/24 15:36 06/15/24 15:36 06/14/24 16:00 FiO2 30 06/15/24 16:00 Narrative: GEN: NAD, intubated LUNGS: diminished breathing sounds mild scattered wheezing on MV CV: nl S1 S2; no M/R/G ABD: Soft, ND, NT, + BS, EXT: No peripheral edema, No calf muscle tenderness NEURO: intubated PSYCH: intubated Objective Lab Results 06/15/24 05:00 06/15/24 10:55 Microbiology Results Microbiology 06/12/24 05:56 Blood - Right Hand Blood Culture - Preliminary No Growth 3 Days 06/12/24 06:05 Blood - Left Hand Blood Culture - Preliminary No Growth 3 Days ABG Interpretation ABG results: 06/15/24 04:48 ABG pH 7.56 H ABG pCO2 26.3 L* ABG pO2 111.9 H ABG HCO3 22.9 L ABG Total CO2 23.7 ABG O2 Saturation 98.1 ABG O2 Content 6.9 ABG Base Excess 1.6 Meds Allergies and Active Meds Allergies flecainide Allergy (Unknown, Verified 05/17/24 08:07) Hives Active Meds: Active Medications Generic Name Dose Route Start Last Admin Trade Name Freq PRN Reason Stop Dose Admin Acetaminophen 650 mg 06/12/24 00:34 Acetaminophen 325 Mg Tablet PO 06/12/25 00:33 Q6HR PRN Pain Scale 1 - 3 or fever Acetylcysteine 600 mg 06/15/24 09:00 06/15/24 08:43 Acetylcysteine 20% 4 Ml 200 Mg/Ml Vial PO 06/13/25 16:29 600 mg BID ERNESTINA Administration Albuterol 6 puff 06/14/24 18:00 06/15/24 15:17 Albuterol Hfa 200 Puff/18 Gm Inhaler VENT 06/14/25 17:59 Not Given Q6HR ERNESTINA Albuterol/Ipratropium 3 ml 06/12/24 18:03 06/13/24 08:53 Ipratropium/Albuterol 0.5-3 Mg 3 Ml Ampul.Neb INHALATION 06/12/25 18:14 3 ml Q6H PRN Administration SOB OR WHEEZING Aspirin 81 mg 06/12/24 10:00 06/15/24 08:18 Aspirin 81 Mg Tab.Chew PO 06/12/25 09:59 81 mg DAILY ERNESTINA Administration Benzonatate 200 mg 06/12/24 18:17 06/13/24 17:54 Benzonatate 100 Mg Capsule PO 06/12/25 18:16 200 mg TID PRN Administration Cough Chlorhexidine Gluconate 15 ml 06/14/24 21:00 06/15/24 08:18 Chlorhexidine Gluconate 0.12% 15 Ml Udc MUCOUS MEM 06/14/25 20:59 15 ml BID ERNESTINA Administration Clopidogrel Bisulfate 75 mg 06/14/24 09:00 06/15/24 08:18 Clopidogrel Bisulfate 75 Mg Tablet PO 06/14/25 08:59 75 mg DAILY ERNESTINA Administration Dextrose 0 gm 06/12/24 00:40 Dextrose 50% In Water 25 Gm/50 Ml Syringe IV-PUSH 06/12/25 00:39 PRN PRN Hypoglycemia Dorzolamide HCl 1 drops 06/12/24 09:00 06/15/24 08:19 Dorzolamide 2% Op Soln 200 Drops/10 Ml Bottle EYE-BOTH 06/12/25 08:59 1 drops DAILY ERNESTINA Administration Glucose 0 gm 06/12/24 00:40 Dextrose 40% Gel 15 Gm Tube PO 06/12/25 00:39 PRN PRN Hypoglycemia Magnesium Sulfate 2 gm in 50 mls @ 25 mls/hr 06/12/24 00:34 06/13/24 19:00 Magnesium Sulf 2gm-*Swfi* IV 06/12/25 00:33 Infused DAILY PRN Infusion Magnesium Level < 1.5 Sodium Chloride 500 mls @ 0 mls/hr 06/12/24 13:00 06/14/24 09:39 0.9% Sodium Chloride 500 Ml IV 06/12/25 12:59 10 mls/hr .Q0M ERNESTINA Administration Per Protocol Propofol 1,000 mg in 100 mls @ 9.624 mls/hr 06/14/24 16:00 06/15/24 15:25 Diprivan IV 06/14/25 15:59 20 mcg/kg/min .[id number] ERNESTINA 9.62 mls/hr Administration Protocol 20 MCG/KG/MIN Sodium Chloride 100 mls @ 20 mls/hr 06/15/24 07:01 0.9% Sodium Chloride 100 Ml IV 06/16/24 07:00 PROTOCOL PRN BLOOD TRANSFUSION Ceftriaxone Sodium 2 gm in 50 mls @ 100 mls/hr 06/15/24 14:00 06/15/24 15:22 Rocephin IV 100 mls/hr Q24H ERNESTINA Administration Dextrose/Sodium Chloride 1,000 mls @ 50 mls/hr 06/15/24 13:30 06/15/24 15:58 5 % Dextrose-0.45 % Nacl IV 06/15/24 23:30 Not Given .Q20H ERNESTINA Insulin Aspart 0 units 06/14/24 18:00 06/15/24 11:33 Insulin Aspart 300 Units/3 Ml SUBCUT 06/14/25 17:59 2 units Q6HR ERNESTINA Administration Protocol Melatonin 5 mg 06/13/24 22:00 06/14/24 21:19 Melatonin 5 Mg Tablet PO 06/13/25 21:59 Not Given QHS ERNESTINA Methylprednisolone Sodium Succinate 40 mg 06/13/24 20:00 06/15/24 08:18 Methylprednisolone Sod Succ/Pf 40 Mg/Ml (1ml) Vial IV-PUSH 06/13/25 19:59 40 mg Q12HR ERNESTINA Administration Metoprolol Tartrate 25 mg 06/13/24 09:35 06/15/24 08:18 Metoprolol Tartrate 25 Mg Tablet PO 06/13/25 09:34 25 mg BID ERNESTINA Administration Metoprolol Tartrate 5 mg 06/13/24 15:20 06/14/24 00:00 Metoprolol Tartrate 5 Mg/5 Ml Vial IV-PUSH 06/13/25 15:19 5 mg Q6H PRN Administration Heart Rate- High Miscellaneous Information 1 each 06/15/24 13:21 Consult To Pharmacy MISCELLANE 06/17/24 13:20 .PHACONSULT PRN ZZ.Pharmacy Consult Protocol Morphine Sulfate 4 mg 06/15/24 13:21 Morphine Sulfate 4 Mg/Ml Cartridge IV-PUSH Q20M PRN Chest Pain Nitroglycerin 0.4 mg 06/15/24 13:21 Nitroglycerin 0.4 Mg Tab.Subl SUBLINGUAL 06/15/25 13:20 Q5M PRN Chest Pain Ondansetron HCl 4 mg 06/12/24 00:34 06/14/24 09:45 Ondansetron 4 Mg/2 Ml Vial IV-PUSH 06/12/25 00:33 4 mg Q8H PRN Administration Nausea And Vomiting Ondansetron HCl 4 mg 06/15/24 13:21 Ondansetron 4 Mg/2 Ml Vial IV-PUSH 06/15/25 13:20 Q6H PRN Nausea And Vomiting Pantoprazole Sodium 40 mg 06/15/24 10:30 06/15/24 10:41 Pantoprazole 40 Mg Vial IV-PUSH 06/15/25 10:29 40 mg DAILY ERNESTINA Administration Potassium Chloride 20 meq 06/12/24 00:34 06/13/24 06:43 Potassium Chloride Er 20 Meq Tab.Er.Prt PO 06/12/25 00:33 20 meq DAILY PRN Administration Hypokalemia Potassium Chloride 40 meq 06/12/24 00:34 Potassium Chloride Er 20 Meq Tab.Er.Prt PO 06/12/25 00:33 DAILY PRN Hypokalemia Potassium Chloride 40 meq 06/15/24 07:00 Potassium Chloride Er 20 Meq Tab.Er.Prt PO STAT PRN Hypokalemia Potassium Chloride 40 meq 06/15/24 06:43 06/15/24 06:55 Potassium Chloride Liquid 20 Meq/15 Ml Udc PO 06/15/25 06:42 40 meq DAILY PRN Administration Hypokalemia Propofol 0 mg 06/14/24 15:58 Propofol - Infusion Bolus 1,000 Mg/100 Ml Vial IV 06/14/25 15:57 PROTOCOL PRN Bolus Documentation Sodium Chloride 0 ml 06/13/24 10:29 06/15/24 10:46 Sodium Chloride 0.9 % 10 Ml Syringe IV-PUSH 06/13/25 10:28 10 ml PRN PRN Administration Flush Sodium Chloride 0 ml 06/14/24 15:15 Sodium Chloride 0.9 % 10 Ml Syringe IV-PUSH 06/14/25 15:14 PRN PRN Flush Sodium Chloride 10 ml 06/15/24 10:30 06/15/24 10:41 Sodium Chloride 0.9 % 10 Ml Vial.Pf INJECTION 06/15/25 10:29 10 ml DAILY ERNESTINA Administration Sodium Chloride 10 ml 06/15/24 10:10 Sodium Chloride 0.9 % 10 Ml Syringe IV-PUSH 06/15/25 10:09 PRN PRN Flush Spironolactone 25 mg 06/16/24 09:00 Spironolactone 25 Mg Tablet PO 06/16/25 08:59 DAILY ERNESTINA Timolol Maleate 1 drops 06/12/24 09:00 06/15/24 08:20 Timolol Mal 0.5% Op Soln 100 Drops/5 Ml Bottle EYE-BOTH 06/12/25 08:59 1 drops DAILY ERNESTINA Administration A&P - Hospitalist Assessment/Plan (1) COVID-19: Plan Documented By: Jaron Hicks MD 06/15/241651 Signed By: 06/15/24 1759 [facility]02-05-2025 [place] [address] Cardiac Catheterization Note Signed Patient: Lyric Juarez MR#: [id number] : 1945 Acct:[id number] Age/Sex: 78 / F Adm Date: 5 Loc: Room: [address] [place] [address] Type: ADM IN Attending Dr: Jaron Hicks MD Copies to: Frandy Cabrera MD, [facility] MD Jaron Barbosa MD~ Cardiac Catheterization (Left) DATE/PROVIDER 06/15/2024 Frandy Cabrera MD INDICATION Non-ST elevation myocardial infarction PRE PROCEDURE Cardiology Pre-Op Diagnosis: NSTEMI Frailty Scale: Severely Frail ASA Classification: 2 Mallampati Score: Class II POST PROCEDURE Cardiology Post-Op Diagnosis: Other (Severe three-vessel coronary artery disease) PROCEDURE PROCEDURE MEDICATIONS: Patient was on the ventilator sedated at the time of the cardiac catheterization Approach: Femoral - Rt Left and right coronary angiography PROCEDURE DETAILS Patient was on the ventilator and sedated, informed consent was obtained from the family. The rightgroin was prepped and draped in normal sterile fashion. 1% lidocaine was used for local anesthesia.A 4 Cuban SideArm sheath was placed in the right femoral artery without difficulties. A 4 Cuban JL 4 catheter was advanced over the wire and selectively engaged in left main coronary artery and multiple injections were taken. The catheter was exchanged over the wire with a 4 Cuban 3 DRC catheterwhich was advanced over the wire and selectively engaged in the right coronary artery and single injection was taken. The catheter was exchanged over the wire with a 4 Cuban angled pigtail catheter,multiple attempts were made to cross aortic valve with this catheter were unsuccessful, the catheter was changed over the wire with a 4 Cuban straight pigtail catheter which failed to cross aortic valve. The catheter was exchanged over the wire with a 4 Cuban multipurpose catheter which also failed to cross aortic valve. No further attempts were made. The patient tolerated procedure very well with no complications, she was transferred to the intensive care in stable condition HEMOSTASIS Manual compression the Communications Supervisor SUMMARY OF FINDINGS CCS Classification: CCS [id number]/ mild exertion Dominance: Right Left Main: The left main is large size vessel and normal, it divides into anterior descending artery left circumflex LAD-Prox: The left anterior sending artery is severely diseased vessel with heavy calcification. After givingrise to a large diagonal the LAD is totally occluded and recanalizes by bridging collaterals into constantine narrowed vessel that reaches the apex. The diagonal is a large size vessel with subtotal occlusion proximally at a calcified and very complex lesion . CIRC- Prox: The left circumflex is a large sized nondominant vessel. It provides proximallymedium sized obtuse marginal. The proximal segment of the left circumflex and the obtuse marginal are free of disease. In the mid segment of the AV groove there is subtotal occlusion of the left circumflex after which the re is a moderate-sized posterolateral branch noted. RCA: Right coronary artery is a dominant vessel which is proximally occluded. A network of collaterals is extending between the left and right coronary arteries. No large sized vessels are noted communicating between the 2 systems LEFT VENTRICLE LV gram was not done due to inability to cross aortic valve IMPRESSION Severe three-vessel coronary disease manifested by total occlusion of the mid LAD and subtotal occlusion of proximal segment of a large diagonal. There is 95% mid left circumflex stenosis and 100% occlusion of the proximal right coronary artery. RECOMMENDATIONS The case was reviewed with interventional cardiology. The patient is not a candidate for PCI or coronary bypass surgery. Medical therapy is recommended Documented By: Frandy Cabrera MD, [facility] 1746 Signed By: 06/15/24 1753 [facility]02-05-2025 Progress note Author Reilly Chanel [facility] Note Date/Time June 15, 2024 1 :09pm [facility] [address] [place] [address] Pulmonology Progress Note Signed Patient: Lyric Juarez MR#: [id number] : 1945 Acct:[id number] Age/Sex: 78 / F Adm Date: 5 Loc: Room: [address] [place] [address] Type: ADM IN Attending Dr: Jaron Hicks MD Copies to: ~ Date of Service: 06/15/2024 Subjective Subjective Narrative: Patient is intubated and sedated with no reported issues overnight. Patient wasgiven IV fluid despite central venous pressure of 10 to try and mitigate any contrast-induced nephropathy as well as continued on oral acetylcysteine. Exam Physical Exam Vital Signs: Temp Pulse Resp BP Pulse Ox O2 Del Method O2 Flow Rate 97.4 F L 88 16 111/65 100 Mechanical Ventilation 3 06/15/24 08:00 06/15/24 08:00 06/15/24 08:00 06/15/24 08:00 06/15/24 08:00 06/15/24 08:00 06/14/24 16:00 FiO2 40 06/15/24 08:00 Const General: cooperative Nutritional Appearance: average body habitus Orientation: alert and awake HEENT Head: normal to inspection Ears: hearing grossly normal bilaterally and external ears normal Nose: external nose normal Face and sinus: normal facial exam Eyes Sclera: sclerae normal Neck Neck: normal visual inspection (right internal jugular central venous catheter with dressing intact) Resp Effort & Inspection: normal respiratory effort Auscultation: clear to auscultation bilaterally, diminished lung sounds, no rales, no rhonchi and wheezes expiratory wheezes (bilateral) Cardio Rate: regular rate and tachycardic Rhythm: regular rhythm and abnormal rhythm irregularly irregular Heart Sounds: S1 normal, S2 normal and no murmurs GI Inspection: normal to inspection Palpation: soft and nontender General: deferred Skin General: no rashes or lesions noted (Warm and dry) Extrem General: no pedal edema Objective Intake and Output I&O - Last 24 Hours: Intake & Output 06/14/24 06/15/24 06/15/24 23:59 07:59 15:59 Intake Total 300 / 1375 1260 / 1260 Output Total 1550 / 1650 775 / 775 Balance -1250 / -275 485 / 485 Weight 80.2 kg Labs 06/15/24 05:00 06/15/24 10:55 Microbiology Micro: Microbiology 3 06/12/24 05:56 Blood Culture - Preliminary Blood - Right Hand No Growth 3 Days 06/12/24 06:05 Blood Culture - Preliminary Blood - Left Hand No Growth 3 Days Imaging and Cardiology Chest x-ray: Status: image reviewed by me Additional comments: Date of Service: 06/15/24 XR/XR chest 1V portable: respiratory failure XR chest 1V portable 06/14/2024 3:46 PM SIGNS AND SYMPTOMS: Respiratory failure PROTOCOL: Frontal radiographs of the chest COMPARISON: 06/14/2024 FINDINGS: The trachea is midline. The ET tube, enteric tube, and right IJ line are in satisfactory position. There is mild cardiomegaly. There is a pleural effusion at the left lung base with bibasilar airspace opacity similar to the prior exam. Atherosclerotic aortic arch. The bony thorax is intact. Degenerative changes in the shoulders and thoracic spine. XR/XR chest 1V portable IMPRESSION: Unchanged chest. Additional Results Results Comments: 06/15/24 04:48 ABG pH 7.56 H ABG pCO2 26.3 L* ABG pO2 111.9 H ABG HCO3 22.9 L ABG Total CO2 23.7 ABG O2 Saturation 98.1 ABG O2 Content 6.9 ABG Base Excess 1.6 12/400/30/5 Assessment/Plan Assessment/Plan (1) Sepsis: (2) Atrial fibrillation: (3) COVID-19: (4) Acute kidney injury: (5) Bradycardia: (6) Elevated troponin: (7) Hyponatremia: Plan Hospital day #4, right internal jugular central venous catheter day #2, ventilator day #1 for patient admitted for hypotension, atrial fibrillation withRVR with subsequent junctional bradycardia with possible Takatsubo's cardiomyopathy on echocardiogram (EF about 35%) with incidental finding of COVIDpositive status. Cardiac catheterization and optimization of hemodynamics/renalfunction. * Will decrease ventilator support with patient having combined metabolic and respiratory alkalosis * Potassium supplementation as per nephrology with some of her hypokalemia likely related to her significant metabolic alkalosis * Correction of patient's coagulopathy as per cardiology in preparation for cardiac catheterization * Continue Mucomyst until after catheterization and continue IV fluid for some period of time after catheterization as well * Start nutritional support after catheterization * Appropriate DVT and stress ulcer prophylaxis Documented By: Reilly Chanel MD 5 0900 Signed By: <Electronically signed by MD Reilly Chanel> 06/15/24 8190 [facility] Work Phone: [phone]) 560-886702-05-2025 Consult note Author oJselo Watson [facility] Note Date/Time June 15, 2024 1 1:26am [facility] [address] [place] [address] Gastroenterology Consult Note Signed Patient: Lyric Juarez MR#: [id number] : 1945 Acct:[id number] Age/Sex: 78 / F Adm Date: 5 Loc: Room: [address] [place] [address] Type: ADM IN Attending Dr: Jaron Hicks MD Copies to: MD Felipe Pastrana MD Marwan Wassouf, MD~ HPI Data of Consult Date of Consultation: 06/15/24 Requesting Physician: Jaron Hicks MD Consult Narrative History of present illness: Ms. Juarez is a 78 year old female who was admitted for shock and multisystem organ failure, who GI is consulted for elevated transaminases. The patient is found to be COVID-19 positive currently has respiratory failure and is intubatedin the ICU and unable to provide history. Per chart review she does not have prior history of liver disease. cc:: CC: Jaron Hicks MD Review of Systems Review of Systems Unobtainable due to endotracheal tube [facility] [place] Medical History Type 2 diabetes mellitus with hyperglycemia Paroxysmal atrial fibrillation (09/20/15) Other specified anxiety disorders (02/05/18) Hyperlipidemia, unspecified (09/20/15) History of falling Essential (primary) hypertension Erythrasma (11/09/17) Surgical History History of cholecystectomy Family History Father Mother Social History Smoking Status: Never smoker Substance Use Type: None Meds Medications and Allergies Allergies flecainide Allergy (Unknown, Verified 05/17/24 08:07) Hives Home Medications chlorthalidone 25 mg tablet 25 mg PO DAILY 04/19/24 [History Confirmed 06/11/24] diltiazem HCl 300 mg capsule,extended release 24 hr 300 mg PO DAILY 04/19/24 [History Confirmed 06/11/24] lancets 30 gauge (OneTouch Delica Plus Lancet) #100 ea 04/19/24 [History Confirmed 05/17/24] lisinopril 10 mg tablet 10 mg PO DAILY 04/19/24 [History Confirmed 06/11/24] potassium chloride 20 mEq tablet,extended release(part/cryst) (Klor-Con M) 20 meq PO DAILY 04/19/24 [History Confirmed 06/11/24] pravastatin 40 mg tablet 40 mg PO QHS 04/19/24 [History Confirmed 06/11/24] warfarin 2.5 mg tablet 2.5 mg PO DAILY 04/19/24 [History Confirmed 06/11/24] cholecalciferol (vitamin D3) 25 mcg (1,000 unit) capsule 25 mcg PO DAILY 04/20/24 [History Confirmed 06/11/24] metformin 500 mg tablet,extended release 24 hr 500 mg PO DAILY #30 tabs 05/17/24[Rx Confirmed 06/11/24] blood sugar diagnostic ([employer] Verio test strips) #100 strips 06/01/24 [Rx] dorzolamide-timolol (PF) 2 %-0.5 % eye drops in a dropperette 1 drp Eye-Both DAILY 06/11/24 [History Confirmed 06/11/24] Exam Physical Exam Vital Signs: Temp Pulse Resp BP Pulse Ox O2 Del Method O2 Flow Rate 98.0 F 77 15 115/70 97 Mechanical Ventilation 3 06/15/24 04:00 06/15/24 05:39 06/15/24 05:39 06/15/24 05:39 06/15/24 05:39 06/15/24 05:39 06/14/24 16:00 FiO2 40 06/15/24 05:39 Const Nutritional Appearance: average body habitus Other: Sedated HEENT Head: normocephalic and atraumatic Neck Neck: trachea midline and supple Resp Effort & Inspection: symmetric chest movement Other: Intubated GI Inspection: normal to inspection and non-distended Skin General: atrophy and dry skin Results - Gastroenterology Labs Labs: Laboratory Results - last 24 hr 06/13/24 06/14/24 06/14/24 09:57 08:09 09:32 Corrected WBC Uncorrected WBC Count RBC Hgb Hct MCV MCH MCHC RDW Plt Count MPV Neut % (Auto) Lymph % (Auto) [place] % (Auto) Eos % (Auto) Baso % (Auto) Nucleat RBC Rel Count Neut # (Auto) Lymph # (Auto) [place] # (Auto) Eos # (Auto) Baso # (Auto) PT INR APTT Sample Site ABG pH ABG pCO2 ABG pO2 ABG HCO3 ABG Total CO2 ABG O2 Saturation ABG O2 Content ABG Base Excess Set Respiration Rate Vent Mode FiO2 Tidal Volume PEEP Critical Value PHA Creatinine Clear Sodium Potassium Chloride Carbon Dioxide Anion Gap BUN Creatinine Est GFR (CKD-EPI) Glucose POC Glucose 253 Calcium Total Bilirubin AST ALT Alkaline Phosphatase Total Protein Albumin Globulin Albumin/Globulin Ratio Triglycerides Urine Eosinophils 0 Ur Random Creatinine 68.00 Ur Sodium mmol/L 45.0 Vancomycin Peak Blood Type O Positive Antibody Screen Negative 06/14/24 06/14/24 06/14/24 12:05 12:10 18:15 Corrected WBC Uncorrected WBC Count RBC Hgb Hct MCV MCH MCHC RDW Plt Count MPV Neut % (Auto) Lymph % (Auto) [place] % (Auto) Eos % (Auto) Baso % (Auto) Nucleat RBC Rel Count Neut # (Auto) Lymph # (Auto) [place] # (Auto) Eos # (Auto) Baso # (Auto) PT 28.5 H D INR 2.6 APTT Sample Site ABG pH ABG pCO2 ABG pO2 ABG HCO3 ABG Total CO2 ABG O2 Saturation ABG O2 Content ABG Base Excess Set Respiration Rate Vent Mode FiO2 Tidal Volume PEEP Critical Value PHA Creatinine Clear Sodium Potassium Chloride Carbon Dioxide Anion Gap BUN Creatinine Est GFR (CKD-EPI) Glucose POC Glucose 218 218 Calcium Total Bilirubin AST ALT Alkaline Phosphatase Total Protein Albumin Globulin Albumin/Globulin Ratio Triglycerides Urine Eosinophils Ur Random Creatinine Ur Sodium mmol/L Vancomycin Peak 25.0 Blood Type Antibody Screen 06/14/24 06/15/24 06/15/24 18:17 00:23 04:48 Corrected WBC Uncorrected WBC Count RBC Hgb Hct MCV MCH MCHC RDW Plt Count MPV Neut % (Auto) Lymph % (Auto) [place] % (Auto) Eos % (Auto) Baso % (Auto) Nucleat RBC Rel Count Neut # (Auto) Lymph # (Auto) [place] # (Auto) Eos # (Auto) Baso # (Auto) PT INR APTT Sample Site Left brachial Left radial ABG pH 7.45 7.56 H ABG pCO2 28.2 L* 26.3 L* ABG pO2 99.1 111.9 H ABG HCO3 19.1 L 22.9 L ABG Total CO2 19.9 L 23.7 ABG O2 Saturation 97.6 98.1 ABG O2 Content 7.0 6.9 ABG Base Excess -3.8 L 1.6 Set Respiration Rate 12 12 Vent Mode Ac Ac FiO2 40 30 Tidal Volume 400 400 PEEP 5 5 Critical Value PHA Creatinine Clear Sodium Potassium Chloride Carbon Dioxide Anion Gap BUN Creatinine Est GFR (CKD-EPI) Glucose POC Glucose 233 Calcium Total Bilirubin AST ALT Alkaline Phosphatase Total Protein Albumin Globulin Albumin/Globulin Ratio Triglycerides Urine Eosinophils Ur Random Creatinine Ur Sodium mmol/L Vancomycin Peak Blood Type Antibody Screen 06/15/24 06/15/24 05:00 05:16 Corrected WBC 6.4 Uncorrected WBC Count 6.4 RBC 3.30 L Hgb 10.3 L Hct 29.2 L MCV 88.5 MCH 31.1 MCHC 35.2 H RDW 13.9 Plt Count 190 D MPV 8.6 Neut % (Auto) 87.5 Lymph % (Auto) 5.6 [place] % (Auto) 6.8 Eos % (Auto) 0.0 Baso % (Auto) 0.1 Nucleat RBC Rel Count 0.1 Neut # (Auto) 5.6 Lymph # (Auto) 0.4 L [place] # (Auto) 0.4 Eos # (Auto) 0.0 Baso # (Auto) 0.0 PT 32.3 H INR 2.9 APTT 32.1 Sample Site ABG pH ABG pCO2 ABG pO2 ABG HCO3 ABG Total CO2 ABG O2 Saturation ABG O2 Content ABG Base Excess Set Respiration Rate Vent Mode FiO2 Tidal Volume PEEP Critical Value PHA Creatinine Clear 32.56 Sodium 125 L Potassium 2.5 L* Chloride 88 L Carbon Dioxide 25.5 Anion Gap 14.0 BUN 39 H Creatinine 1.49 H Est GFR (CKD-EPI) 35.734 Glucose 201 H POC Glucose 217 Calcium 8.2 L Total Bilirubin 1.1 H AST 1625 H ALT 1540 H Alkaline Phosphatase 142 H Total Protein 5.7 L Albumin 3.4 L Globulin 2.3 Albumin/Globulin Ratio 1.5 Triglycerides 160 H Urine Eosinophils Ur Random Creatinine Ur Sodium mmol/L Vancomycin Peak Blood Type Antibody Screen A&P - Gastroenterology Assessment/Plan (1) Multisystem organ failure: (2) Respiratory failure: (3) Elevated liver transaminase level: Plan -The patient's acute liver injury is likely multifactorial, mostly driven by ischemic hepatitis, given she has multi organ system ischemic injury. Less likely congestive hepatopathy with normal biliary function. She has a COVID infection which can also cause hepatitis. Additionally she has risk factors formetabolic associated steatohepatitis so likely has poor liver reserve at baseline. -Continue supportive care -Does not appear she has had routine screening for hepatitis C so we will send this Thank you for this consult, we will peripherally follow Documented By: Joselo Watson MD 06/15/24 0758 Signed By: <Electronically signed by Joselo Watson MD> 06/15/24 1126 [facility] Work Phone: 1(704) 227-241602-05-2025 [place] [id number] Pulmonology Progress Note Signed Patient: Lyric Juarez MR#: [id number] : 1945 Acct:[id number] Age/Sex: 78 / F Adm Date: 5 Loc: Room: [address] [place] [address] Type: ADM IN Attending Dr: Jaron Hicks MD Copies to: ~ Date of Service: 06/15/2024 Subjective Subjective Narrative: Patient is intubated and sedated with no reported issues overnight. Patient wasgiven IV fluid despite central venous pressure of 10 to try and mitigate any contrast-induced nephropathy as well as continued on oral acetylcysteine. Exam Physical Exam Vital Signs: Temp Pulse Resp BP Pulse Ox O2 Del Method O2 Flow Rate 97.4 F L 88 16 111/65 100 Mechanical Ventilation 3 06/15/24 08:00 06/15/24 08:00 06/15/24 08:00 06/15/24 08:00 06/15/24 08:00 06/15/24 08:00 06/14/24 16:00 FiO2 40 06/15/24 08:00 Const General: cooperative Nutritional Appearance: average body habitus Orientation: alert and awake HEENT Head: normal to inspection Ears: hearing grossly normal bilaterally and external ears normal Nose: external nose normal Face and sinus: normal facial exam Eyes Sclera: sclerae normal Neck Neck: normal visual inspection (right internal jugular central venous catheter with dressing intact) Resp Effort & Inspection: normal respiratory effort Auscultation: clear to auscultation bilaterally, diminished lung sounds, no rales, no rhonchi and wheezes expiratory wheezes (bilateral) Cardio Rate: regular rate and tachycardic Rhythm: regular rhythm and abnormal rhythm irregularly irregular Heart Sounds: S1 normal, S2 normal and no murmurs GI Inspection: normal to inspection Palpation: soft and nontender General: deferred Skin General: no rashes or lesions noted (Warm and dry) Extrem General: no pedal edema Objective Intake and Output I&O - Last 24 Hours: Intake & Output 06/14/24 06/15/24 06/15/24 23:59 07:59 15:59 Intake Total 300 / 1375 1260 / 1260 Output Total 1550 / 1650 775 / 775 Balance -1250 / -275 485 / 485 Weight 80.2 kg Labs 06/15/24 05:00 06/15/24 10:55 Microbiology Micro: Microbiology 3 06/12/24 05:56 Blood Culture - Preliminary Blood - Right Hand No Growth 3 Days 06/12/24 06:05 Blood Culture - Preliminary Blood - Left Hand No Growth 3 Days Imaging and Cardiology Chest x-ray: Status: image reviewed by me Additional comments: Date of Service: 06/15/24 XR/XR chest 1V portable: respiratory failure XR chest 1V portable 06/14/2024 3:46 PM SIGNS AND SYMPTOMS: Respiratory failure PROTOCOL: Frontal radiographs of the chest COMPARISON: 06/14/2024 FINDINGS: The trachea is midline. The ET tube, enteric tube, and right IJ line are in satisfactory position. There is mild cardiomegaly. There is a pleural effusion at the left lung base with bibasilar airspace opacity similar to the prior exam. Atherosclerotic aortic arch. The bony thorax is intact. Degenerative changes in the shoulders and thoracic spine. XR/XR chest 1V portable IMPRESSION: Unchanged chest. Additional Results Results Comments: 06/15/24 04:48 ABG pH 7.56 H ABG pCO2 26.3 L* ABG pO2 111.9 H ABG HCO3 22.9 L ABG Total CO2 23.7 ABG O2 Saturation 98.1 ABG O2 Content 6.9 ABG Base Excess 1.6 12/400/30/5 Assessment/Plan Assessment/Plan (1) Sepsis: (2) Atrial fibrillation: (3) COVID-19: (4) Acute kidney injury: (5) Bradycardia: (6) Elevated troponin: (7) Hyponatremia: Plan Hospital day #4, right internal jugular central venous catheter day #2, ventilator day #1 for patient admitted for hypotension, atrial fibrillation withRVR with subsequent junctional bradycardia withpossible Takatsubo's cardiomyopathy on echocardiogram (EF about 35%) with incidental finding of COVI Dpositive status. Cardiac catheterization and optimization of hemodynamics/renalfunction. * Will decrease ventilator support with patient having combined metabolic and respiratory alkalosis * Potassium supplementation as per nephrology with some of her hypokalemia likely related to her significant metabolic alkalosis * Correction of patient's coagulopathy as per cardiology in preparation for cardiac catheterization * Continue Mucomyst until after catheterization and continue IV fluid for some period of time aftercatheterization as well * Start nutritional support after catheterization * Appropriate DVT and stress ulcer prophylaxis Documented By: Reilly Chanel MD 5 0900 Signed By: 06/15/24 1309 [facility]02-05-2025 Progress note Author Elvis Philip [facility] Note Date/Time June 15, 2024 1 0:29am [facility] [address] [place] [address] Nephrology Progress Note Signed Patient: Lyric Juarez MR#: [id number] : 1945 Acct:[id number] Age/Sex: 78 / F Adm Date: 5 Loc: Room: [address] [place] [address] Type: ADM IN Attending Dr: Jaron Hicks MD Copies to: ~ Date of Service: 06/15/2024 Subjective Subjective Narrative: This is a 78-year-old female with medical history of atrial fibrillation, HTN, DM, CKD, HLD was presented to the [facility] after a fall. On evaluationin emergency room she was found to have a fever with tachycardia. Her EKG showed A- fib with RVR and was given normal saline fluid boluses to improve her heart rate. She was transferred to the [facility] for sepsis management. Patient after arrival at [facility] was found to have a hypotension with a fall. She was given a normal saline bolus but due to the persistent hypotension she was moved to the intensive care unit and was started on Levophed. She was also given broad-spectrum antibioticsfor sepsis. Patient was also found to have a non-ST elevated AZ and cardiology was consulted. She had echocardiogram which showed EF 35 to 40% moderate pulmonary hypertension and dilated IVC. Cardiology also recommended a cardiac catheterization. Patient was also found to have a hyponatremia with serum sodium 123 to 124 mmol/L. She was given Bumex to improve her respiratory status. Nephrology is consulted for her hyponatremia management and CARMEN and risk stratification and prophylaxis. Interim history Patient was seen and examined at bedside. She was intubated yesterday due to the respiratory distress and in anticipation of cardiac catheterization. She ismaking good urine output with IV Bumex. She was also found to have hypokalemia and was given potassium chloride via G-tube. She is also ordered to have FFP and vitamin K to reverse INR for cardiac catheterization. Exam Physical Exam Vital Signs: Temp Pulse Resp BP Pulse Ox O2 Del Method O2 Flow Rate 96.4 F L 85 20 101/71 100 Mechanical Ventilation 3 06/15/24 10:00 06/15/24 10:00 06/15/24 10:00 06/15/24 10:00 06/15/24 10:00 06/15/24 10:00 06/14/24 16:00 FiO2 30 06/15/24 10:00 Narrative: General: Appears comfortable and not in distress Heart: S1-S2, no rub Lung: Bilateral air entry, no wheezing or crackles Abdomen: Soft, positive bowel sounds Extremities: Trace edema, no cyanosis Head: Atraumatic, normocephalic Ear: No external ear redness or tenderness Eyes: No pallor or redness Neck: Trachea is midline or no visible mass Skin: No rashes , warm to touch ANTISQUEAK FILLER: Intubated and sedated Musculoskeletal: No swelling or limitation of movement of the large joints Objective Intake and Output I&O: Intake & Output 06/12/24 06/13/24 06/14/24 06/15/24 23:59 23:59 23:59 23:59 Intake Total 250 / 250 2305 / 2305 1375 / 1375 1360 / 1360 Output Total 2150 / 2150 1650 / 1650 775 / 775 Balance 250 / 250 155 / 155 -275 / -275 585 / 585 Weight 83 kg 81.4 kg 80.2 kg 80.2 kg Meds and Allergies Meds: Active Medications Acetaminophen (Acetaminophen 325 Mg Tablet) 650 mg PO Q6HR PRN PRN Reason: Pain Scale 1 - 3 or fever Stop: 06/12/25 00:33 Acetylcysteine (Acetylcysteine 20% 4 Ml 200 Mg/Ml Vial) 600 mg PO BID ERNESTINA Stop: 06/13/25 16:29 Last Admin: 06/15/24 08:43 Dose: 600 mg Albuterol (Albuterol Hfa 200 Puff/18 Gm Inhaler) 6 puff VENT Q6HR [facility] Stop: 06/14/25 17:59 Last Admin: 06/15/24 04:39 Dose: 6 puff Albuterol/Ipratropium (Ipratropium/Albuterol 0.5-3 Mg 3 Ml Ampul.Neb) 3 ml INHALATION Q6H PRN PRN Reason: SOB OR WHEEZING Stop: 06/12/25 18:14 Last Admin: 06/13/24 08:53 Dose: 3 ml Aspirin (Aspirin 81 Mg Tab.Chew) 81 mg PO DAILY [facility] Stop: 06/12/25 09:59 Last Admin: 06/15/24 08:18 Dose: 81 mg Benzonatate (Benzonatate 100 Mg Capsule) 200 mg PO TID PRN PRN Reason: Cough Stop: 06/12/25 18:16 Last Admin: 06/13/24 17:54 Dose: 200 mg Chlorhexidine Gluconate (Chlorhexidine Gluconate 0.12% 15 Ml Udc) 15 ml MUCOUS MEM BID [facility] Stop: 06/14/25 20:59 Last Admin: 06/15/24 08:18 Dose: 15 ml Clopidogrel Bisulfate (Clopidogrel Bisulfate 75 Mg Tablet) 75 mg PO DAILY [facility] Stop: 06/14/25 08:59 Last Admin: 06/15/24 08:18 Dose: 75 mg Dextrose (Dextrose 50% In Water 25 Gm/50 Ml Syringe) 0 gm IV-PUSH PRN PRN PRN Reason: Hypoglycemia Stop: 06/12/25 00:39 Dorzolamide HCl (Dorzolamide 2% Op Soln 200 Drops/10 Ml Bottle) 1 drops EYE-BOTH DAILY [facility] Stop: 06/12/25 08:59 Last Admin: 06/15/24 08:19 Dose: 1 drops Glucose (Dextrose 40% Gel 15 Gm Tube) 0 gm PO PRN PRN PRN Reason: Hypoglycemia Stop: 06/12/25 00:39 Magnesium Sulfate (Magnesium Sulf 2gm-*Swfi*) 2 gm in 50 mls @ 25 mls/hr IV DAILY PRN PRN Reason: Magnesium Level < 1.5 Stop: 06/12/25 00:33 Last Infusion: 06/13/24 19:00 Dose: Infused Vancomycin HCl 1.25 gm/ (Dextrose) 275 mls @ 183.333 mls/hr IV Q24H [facility] Stop: 06/13/25 06:29 Last Infusion: 06/14/24 14:18 Dose: Infused Piperacillin Sod/Tazobactam Sod (Zosyn) 4.5 gm in 100 mls @ 25 mls/hr IV Q8H [facility] Last Admin: 06/15/24 05:16 Dose: 25 mls/hr Sodium Chloride (0.9% Sodium Chloride 500 Ml) 500 mls @ 0 mls/hr IV .Q0M [facility] Stop: 06/12/25 12:59 Last Admin: 06/14/24 09:39 Dose: 10 mls/hr Sodium Chloride (0.9% Sodium Chloride 100 Ml) 100 mls @ 20 mls/hr IV PROTOCOL PRN PRN Reason: BLOOD TRANSFUSION Stop: 06/15/24 14:05 Propofol (Diprivan) 1,000 mg in 100 mls @ 9.624 mls/hr IV .[id number] [facility]; Protocol Stop: 06/14/25 15:59 Last Admin: 06/15/24 09:04 Dose: 20 mcg/kg/min, 9.62 mls/hr Sodium Chloride (0.9% Sodium Chloride 100 Ml) 100 mls @ 20 mls/hr IV PROTOCOL PRN PRN Reason: BLOOD TRANSFUSION Stop: 06/16/24 07:00 Potassium Chloride (Potassium Chl 20meq-*Swfi*) 20 meq in 50 mls @ 25 mls/hr IVQ2H [facility] Stop: 06/15/24 12:10 Last Admin: 06/15/24 08:49 Dose: 25 mls/hr Magnesium Sulfate (Magnesium Sulf 4 Gm-*Swfi*) 4 gm in 100 mls @ 25 mls/hr IV ONCE ONE Stop: 06/15/24 13:47 Insulin Aspart (Insulin Aspart 300 Units/3 Ml) 0 units SUBCUT Q6HR [facility]; Protocol Stop: 06/14/25 17:59 Last Admin: 06/15/24 05:17 Dose: 2 units Melatonin (Melatonin 5 Mg Tablet) 5 mg PO QHS [facility] Stop: 06/13/25 21:59 Last Admin: 06/14/24 21:19 Dose: Not Given Methylprednisolone Sodium Succinate (Methylprednisolone Sod Succ/Pf 40 Mg/Ml (1ml) Vial) 40 mg IV-PUSH Q12HR [facility] Stop: 06/13/25 19:59 Last Admin: 06/15/24 08:18 Dose: 40 mg Metoprolol Tartrate (Metoprolol Tartrate 25 Mg Tablet) 25 mg PO BID ERNESTINA Stop: 06/13/25 09:34 Last Admin: 06/15/24 08:18 Dose: 25 mg Metoprolol Tartrate (Metoprolol Tartrate 5 Mg/5 Ml Vial) 5 mg IV-PUSH Q6H PRN PRN Reason: Heart Rate- High Stop: 06/13/25 15:19 Last Admin: 06/14/24 00:00 Dose: 5 mg Miscellaneous Information (Consult To Pharmacy) 1 each MISCELLANE .PHACONSULT PRN; Protocol PRN Reason: ESA.Pharmacy Consult Stop: 06/14/25 15:14 Ondansetron HCl (Ondansetron 4 Mg/2 Ml Vial) 4 mg IV-PUSH Q8H PRN PRN Reason: Nausea And Vomiting Stop: 06/12/25 00:33 Last Admin: 06/14/24 09:45 Dose: 4 mg Pantoprazole Sodium (Pantoprazole 40 Mg Vial) 40 mg IV-PUSH DAILY [facility] Stop: 06/15/25 10:29 Potassium Chloride (Potassium Chloride Er 20 Meq Tab.Er.Prt) 20 meq PO DAILY PRN PRN Reason: Hypokalemia Stop: 06/12/25 00:33 Last Admin: 06/13/24 06:43 Dose: 20 meq Potassium Chloride (Potassium Chloride Er 20 Meq Tab.Er.Prt) 40 meq PO DAILY PRN PRN Reason: Hypokalemia Stop: 06/12/25 00:33 Potassium Chloride (Potassium Chloride Er 20 Meq Tab.Er.Prt) 40 meq PO STAT PRN PRN Reason: Hypokalemia Potassium Chloride (Potassium Chloride Liquid 20 Meq/15 Ml Udc) 40 meq PO DAILYPRN PRN Reason: Hypokalemia Stop: 06/15/25 06:42 Last Admin: 06/15/24 06:55 Dose: 40 meq Propofol (Propofol - Infusion Bolus 1,000 Mg/100 Ml Vial) 0 mg IV PROTOCOL PRN PRN Reason: Bolus Documentation Stop: 06/14/25 15:57 Sodium Chloride (Sodium Chloride 0.9 % 10 Ml Syringe) 0 ml IV-PUSH PRN PRN PRN Reason: Flush Stop: 06/13/25 10:28 Last Admin: 06/15/24 08:24 Dose: 10 ml Sodium Chloride (Sodium Chloride 0.9 % 10 Ml Syringe) 0 ml IV-PUSH PRN PRN PRN Reason: Flush Stop: 06/14/25 15:14 Sodium Chloride (Sodium Chloride 0.9 % 10 Ml Vial.Pf) 10 ml INJECTION DAILY ERNESTINA Stop: 06/15/25 10:29 Sodium Chloride (Sodium Chloride 0.9 % 10 Ml Syringe) 10 ml IV-PUSH PRN PRN PRN Reason: Flush Stop: 06/15/25 10:09 Spironolactone (Spironolactone 25 Mg Tablet) 25 mg PO DAILY ERNESTINA Stop: 06/16/25 08:59 Timolol Maleate (Timolol Mal 0.5% Op Soln 100 Drops/5 Ml Bottle) 1 drops EYE- BOTH DAILY ERNEST[facility] Stop: 06/12/25 08:59 Last Admin: 06/15/24 08:20 Dose: 1 drops Vancomycin HCl (Vancomycin - Pharmacy Dosing 1 Each Miscell) 1 each IV ONCE PRN; Protocol PRN Reason: ZZ.Pharmacy Consult Allergies flecainide Allergy (Unknown, Verified 05/17/24 08:07) Hives Results - Nephrology Labs 06/15/24 05:00 06/15/24 05:00 Labs: 06/15/24 05:00 BUN 39 H Creatinine 1.49 H Albumin 3.4 L Radiology Impressions Impressions - last 24 hours: Impressions Renal Ultrasound 06/14/24 08:40 IMPRESSION: No acute findings. Impression dictated by: Stevie Hernandez Jr., D.O.06/14/2024 3:15 PM Dictation Location: [facility]-23 Chest X-Ray 06/14/24 14:13 IMPRESSION: Findings consistent with failure. Impression dictated by: Leo Bosch M.D.06/14/2024 4:27 PM Dictation Location: [facility]--20 Chest X-Ray 06/14/24 17:02 IMPRESSION: Adequate position of endotracheal tube. Continued basilar pleural-parenchymal changes. Single view of Abdomen for NG tube placement The tip of the NG tube is in the Mid stomach. IMPRESSION: Adequate position of NG tube Impression dictated by: Leo Bosch M.D.06/14/2024 5:42 PM Dictation Location: [place] [address] Chest X-Ray 06/15/24 05:00 IMPRESSION: Unchanged chest. Impression dictated by: Giancarlo Hunt M.D.06/15/2024 8:31 AM Dictation Location: [place] [address] Any impression(s) listed above is documentation that was entered by the reading physician into a diagnostic report(s) for Lyric Juarez. I have reviewed the report(s) and am incorporating any findings in the treatment plan of this patient where applicable. A&P - Nephrology Assessment/Plan (1) Hyponatremia: Assessment/Problem Details: She appears to have a hyponatremia due to the combination of hypervolemia and SIADH. (2) Sepsis: Assessment/Problem Details: Patient present with a sepsis initially required vasopressors. She is off the vasopressors and currently on broad-spectrum antibiotic. (3) CKD stage 3a, GFR 45-59 ml/min: Assessment/Problem Details: She has a CKD due to the DM and HTN with baseline serum creatinine around 1.1 mg/dL. Her renal function initially was worse due to the hypotension but improved with optimization of her hemodynamics. (4) Non-ST elevation (NSTEMI) myocardial infarction: Assessment/Problem Details: Patient also diagnosed to have a AZ. Cardiology has been following the patient plan to do a cardiac catheterization. (5) COVID-19: Assessment/Problem Details: Patient has COVID-19 infection. She is currently on steroids. Pulmonary has been following the patient. (6) Atrial fibrillation: Assessment/Problem Details: Patient has atrial fibrillation. Currently on metoprolol. (7) Warfarin-induced coagulopathy: Assessment/Problem Details: She has a supratherapeutic INR due to the Coumadin. She was given FFP and vitamin K. Plan * Will continue gentle fluid resuscitation for CARMEN prophylaxis. Her recent CardioMEMS setting of diuresis. * Will give potassium chloride 40 mEq IV x 1 dose * No need for 3% saline for now. If her serum sodium continues to drop then will start 3% saline * Continue IV antibiotics and adjust as needed based on culture sensitivity. Pharmacy to dose medication based on EGFR. * Continue management of COVID-19 infection and sporty failure as per pulmonary. * Continue management of CAD and A-fib as per cardiology. * Check renal function daily and monitor serum sodium closely * Monitor input output Daily and daily weight. * Documented By: Elvis Philip MD 06/15/24 1014 Signed By: <Electronically signed by Elvis Philip MD> 06/15/24 1029 [facility] Work Phone: [phone]) 693-495502-05-2025 [place] [address] Gastroenterology Consult Note Signed Patient: Lyric Juarez MR#: [id number] : 1945 Acct:[id number] Age/Sex: 78 / F Adm Date: 5 Loc: Room: [address] [place] [address] Type: ADM IN Attending Dr: Jaron Hicks MD Copies to: MD Felipe Pastrana MD Marwan Wassouf, MD~ HPI Data of Consult Date of Consultation: 06/15/24 Requesting Physician: Jaron Hicks MD Consult Narrative History of present illness: Ms. Juarez is a 78 year old female who was admitted for shock and multisystem organ failure, who GI is consulted for elevated transaminases. The patient is found to be COVID-19 positive currently has respiratory failure and is intubatedin the ICU and unable to provide history. Per chart review danioes not have prior history of liver disease. cc:: CC: Jaron Hicks MD Review of Systems Review of Systems Unobtainable due to endotracheal tube PMFSH Medical History Type 2 diabetes mellitus with hyperglycemia Paroxysmal atrial fibrillation (09/20/15) Other specified anxiety disorders (02/05/18) Hyperlipidemia, unspecified (09/20/15) History of falling Essential (primary) hypertension Erythrasma (11/09/17) Surgical History History of cholecystectomy Family History Father Mother Social History Smoking Status: Never smoker Substance Use Type: None Meds Medications and Allergies Allergies flecainide Allergy (Unknown, Verified 05/17/24 08:07) Hives Home Medications chlorthalidone 25 mg tablet 25 mg PO DAILY 04/19/24 [History Confirmed 06/11/24] diltiazem HCl 300 mg capsule,extended release 24 hr 300 mg PO DAILY 04/19/24 [History Confirmed 06/11/24] lancets 30 gauge ([employer] Delica Plus Lancet) #100 ea 04/19/24 [History Confirmed 05/17/24] lisinopril 10 mg tablet 10 mg PO DAILY 04/19/24 [History Confirmed 06/11/24] potassium chloride 20 mEq tablet,extended release(part/cryst) (Klor-Con M) 20 meq PO DAILY 04/19/24[History Confirmed 06/11/24] pravastatin 40 mg tablet 40 mg PO QHS 04/19/24 [History Confirmed 06/11/24] warfarin 2.5 mg tablet 2.5 mg PO DAILY 04/19/24 [History Confirmed 06/11/24] cholecalciferol (vitamin D3) 25 mcg (1,000 unit) capsule 25 mcg PO DAILY 04/20/24 [History Confirmed 06/11/24] metformin 500 mg tablet,extended release 24 hr 500 mg PO DAILY #30 tabs 05/17/24[Rx Confirmed 06/11/24] blood sugar diagnostic ([employer] Verio test strips) #100 strips 06/01/24 [Rx] dorzolamide-timolol (PF) 2 %-0.5 % eye drops in a dropperette 1 drp Eye-Both DAILY 06/11/24 [History Confirmed 06/11/24] Exam Physical Exam Vital Signs: Temp Pulse Resp BP Pulse Ox O2 Del Method O2 Flow Rate 98.0 F 77 15 115/70 97 Mechanical Ventilation 3 06/15/24 04:00 06/15/24 05:39 06/15/24 05:39 06/15/24 05:39 06/15/24 05:39 06/15/24 05:39 06/14/24 16:00 FiO2 40 06/15/24 05:39 Const Nutritional Appearance: average body habitus Other: Sedated HEENT Head: normocephalic and atraumatic Neck Neck: trachea midline and supple Resp Effort & Inspection: symmetric chest movement Other: Intubated GI Inspection: normal to inspection and non-distended Skin General: atrophy and dry skin Results - Gastroenterology Labs Labs: Laboratory Results - last 24 hr 06/13/24 06/14/24 06/14/24 09:57 08:09 09:32 Corrected WBC Uncorrected WBC Count RBC Hgb Hct MCV MCH MCHC RDW Plt Count MPV Neut % (Auto) Lymph % (Auto) [place] % (Auto) Eos % (Auto) Baso % (Auto) Nucleat RBC Rel Count Neut # (Auto) Lymph # (Auto) [place] # (Auto) Eos # (Auto) Baso # (Auto) PT INR APTT Sample Site ABG pH ABG pCO2 ABG pO2 ABG HCO3 ABG Total CO2 ABG O2 Saturation ABG O2 Content ABG Base Excess Set Respiration Rate Vent Mode FiO2 Tidal Volume PEEP Critical Value PHA Creatinine Clear Sodium Potassium Chloride Carbon Dioxide Anion Gap BUN Creatinine Est GFR (CKD-EPI) Glucose POC Glucose 253 Calcium Total Bilirubin AST ALT Alkaline Phosphatase Total Protein Albumin Globulin Albumin/Globulin Ratio Triglycerides Urine Eosinophils 0 Ur Random Creatinine 68.00 Ur Sodium mmol/L 45.0 Vancomycin Peak Blood Type O Positive Antibody Screen Negative 06/14/24 06/14/24 06/14/24 12:05 12:10 18:15 Corrected WBC Uncorrected WBC Count RBC Hgb Hct MCV MCH MCHC RDW Plt Count MPV Neut % (Auto) Lymph % (Auto) [place] % (Auto) Eos % (Auto) Baso % (Auto) Nucleat RBC Rel Count Neut # (Auto) Lymph # (Auto) [place] # (Auto) Eos # (Auto) Baso # (Auto) PT 28.5 H D INR 2.6 APTT Sample Site ABG pH ABG pCO2 ABG pO2 ABG HCO3 ABG Total CO2 ABG O2 Saturation ABG O2 Content ABG Base Excess Set Respiration Rate Vent Mode FiO2 Tidal Volume PEEP Critical Value PHA Creatinine Clear Sodium Potassium Chloride Carbon Dioxide Anion Gap BUN Creatinine Est GFR (CKD-EPI) Glucose POC Glucose 218 218 Calcium Total Bilirubin AST ALT Alkaline Phosphatase Total Protein Albumin Globulin Albumin/Globulin Ratio Triglycerides Urine Eosinophils Ur Random Creatinine Ur Sodium mmol/L Vancomycin Peak 25.0 Blood Type Antibody Screen 06/14/24 06/15/24 06/15/24 18:17 00:23 04:48 Corrected WBC Uncorrected WBC Count RBC Hgb Hct MCV MCH MCHC RDW Plt Count MPV Neut % (Auto) Lymph % (Auto) [place] % (Auto) Eos % (Auto) Baso % (Auto) Nucleat RBC Rel Count Neut # (Auto) Lymph # (Auto) [place] # (Auto) Eos # (Auto) Baso # (Auto) PT INR APTT Sample Site Left brachial Left radial ABG pH 7.45 7.56 H ABG pCO2 28.2 L* 26.3 L* ABG pO2 99.1 111.9 H ABG HCO3 19.1 L 22.9 L ABG Total CO2 19.9 L 23.7 ABG O2 Saturation 97.6 98.1 ABG O2 Content 7.0 6.9 ABG Base Excess -3.8 L 1.6 Set Respiration Rate 12 12 Vent Mode Ac Ac FiO2 40 30 Tidal Volume 400 400 PEEP 5 5 Critical Value PHA Creatinine Clear Sodium Potassium Chloride Carbon Dioxide Anion Gap BUN Creatinine Est GFR (CKD-EPI) Glucose POC Glucose 233 Calcium Total Bilirubin AST ALT Alkaline Phosphatase Total Protein Albumin Globulin Albumin/Globulin Ratio Triglycerides Urine Eosinophils Ur Random Creatinine Ur Sodium mmol/L Vancomycin Peak Blood Type Antibody Screen 06/15/24 06/15/24 05:00 05:16 Corrected WBC 6.4 Uncorrected WBC Count 6.4 RBC 3.30 L Hgb 10.3 L Hct 29.2 L MCV 88.5 MCH 31.1 MCHC 35.2 H RDW 13.9 Plt Count 190 D MPV 8.6 Neut % (Auto) 87.5 Lymph % (Auto) 5.6 [place] % (Auto) 6.8 Eos % (Auto) 0.0 Baso % (Auto) 0.1 Nucleat RBC Rel Count 0.1 Neut # (Auto) 5.6 Lymph # (Auto) 0.4 L [place] # (Auto) 0.4 Eos # (Auto) 0.0 Baso # (Auto) 0.0 PT 32.3 H INR 2.9 APTT 32.1 Sample Site ABG pH ABG pCO2 ABG pO2 ABG HCO3 ABG Total CO2 ABG O2 Saturation ABG O2 Content ABG Base Excess Set Respiration Rate Vent Mode FiO2 Tidal Volume PEEP Critical Value PHA Creatinine Clear 32.56 Sodium 125 L Potassium 2.5 L* Chloride 88 L Carbon Dioxide 25.5 Anion Gap 14.0 BUN 39 H Creatinine 1.49 H Est GFR (CKD-EPI) 35.734 Glucose 201 H POC Glucose 217 Calcium 8.2 L Total Bilirubin 1.1 H AST 1625 H ALT 1540 H Alkaline Phosphatase 142 H Total Protein 5.7 L Albumin 3.4 L Globulin 2.3 Albumin/Globulin Ratio 1.5 Triglycerides 160 H Urine Eosinophils Ur Random Creatinine Ur Sodium mmol/L Vancomycin Peak Blood Type Antibody Screen A&P - Gastroenterology Assessment/Plan (1) Multisystem organ failure: (2) Respiratory failure: (3) Elevated liver transaminase level: Plan -The patient's acute liver injury is likely multifactorial, mostly driven by ischemic hepatitis, given she has multi organ system ischemic injury. Less likely congestive hepatopathy with normal biliary function. She has a COVID infection which can also cause hepatitis. Additionally she has risk factors formetabolic associated steatohepatitis so likely has poor liver reserve at baseline. -Continue supportive care -Does not appear she has had routine screening for hepatitis C so we will send this Thank you for this consult, we will peripherally follow Documented By: Joselo Watson MD 06/15/24 0758 Signed By: 06/15/24 1126 [facility]02-05-2025 Progress note Author Frandy Cabrera [facility] Note Date/Time June 15, 2024 9 :21am [facility] [address] [place] [address] Cardiology Progress Note Signed Patient: Lyric Juarez MR#: [id number] : 1945 Acct:[id number] Age/Sex: 78 / F Adm Date: Loc: Room: [address] [place] [address] Type: ADM IN Attending Dr: Jaron Hicks MD Copies to: ~ Date of Service: 06/15/2024 Subjective Principal diagnosis: Congestive heart failure/non-ST elevation myocardial infarction Interval history: Ms. Juarez is a 78 year old female with PMH significant for Permanent Afib on Coumadin, follows with Dr Cabrera, HTN, HLD, DM II, CKD who presented to [place] ER for 1 day history of weakness. She denied chest pain, dyspnea, palpitations, light headedness or syncope. She was found to have low grade feverand was in Afib with RVR. She tested positive for COVID and other labs were significant for hyponatremia of 123, serum creatinine of 1.4, lactate of 2.3, troponin [phone]. EKG showed atrial fibrillation with slow VR and a new left bundle branch block. 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 Overnight she had brief episode of syncope and weakness and she was found to be hypotensive with ablood pressure of 60/43. She received 2 L normal saline without improvement andwas transferred to the ICU and started on Levophed. This a.m. she is awake and alert, she denies any chest pain, dyspnea or palpitations. She remains on Levophed at 12 with a MAP of 73. Chest x-ray completed today shows cardiomegaly with left lobe airspace disease and a small left pleural effusion. Echo completed today shows LVEF of 35-40% with wall motion abnormalities suggestive of Takotsubo cardiomyopathy. RVSP 40-50 mmHg. Normal RV size with moderately reduced function. Cardiology follow-up 06/13/2024: Patient is resting comfortably in the ICU. She denies any dyspnea or chest pain. Her blood pressure is now elevated and heart rate exceeded 100 bpm atrial fibrillation. INR is 3.4. She is on heparin drip as well. The patient's renal function is stable except for having low sodium 124 mmol/L. Magnesium 1.6 mg/dL and supplements have been provided. Echocardiogram suggest evidence of severe left ventricular systolic dysfunction with akinesis of the anteroseptal and apical segment. This could be stress cardiomyopathy, however, underlying severe CAD cannot be excluded and therefore coronary angiography is going to be necessary. Since her INR is supratherapeutic the cardiac catheterization has been postponed till tomorrow. Will reverse the Coumadin defect with fresh frozen plasma tomorrow and proceed with cardiac catheterization. The patient is in agreement with the plan. In the meantime we will need to have more aggressive treatment of hypertension and heart rate and because of this metoprolol be resumed and will add spironolactone. Will avoid WADE inhibitors, ARB or ARNI due to hyponatremia. Discussed the case with the patient and with Dr. Chanel Cardiology follow-up 06/14/2024: Patient is getting worse, her work of breathing is getting harder and cannot carry on a conversation with tachypnea. Chest x-ray demonstrated worsening compared to her initial film with more blunting of the costophrenic angles. Poor respiratory effort was noted. Her sodium is downto 223 mmol/L. Her transaminase is 10 times more what it was yesterday, creatinine is rising. Her sodium excretion is diminished. She is becoming moreanxious and remains tachycardic with atrial fibrillation. Despite receiving 2 units of FFP and 5 mg of oral vitamin K her INR has dropped to 2.6 only. Cardiac catheterization therefore could not be carried out. I discussed the case at length with the patient's son and another lady who I believe his and discussed the case at length with Dr. Chanel. Our recommendations were tointubate the patient and sedate her while mechanically ventilated allowing for things to settle down so that we can do cardiac catheterization comfortably and safely tomorrow morning after reversing Coumadin. They agreed and allowed us toproceed with this plan. More FFP will be provided this evening hoping that INR will be less than 2 tomorrow. The cardiac catheterization is tentatively scheduled for 8:00 tomorrow morning. Cardiology follow-up 06/15/2024: Patient was intubated last evening and remained stable overnight. Despite receiving FFP and vitamin K INR today is 2.9. Patient will receive more FFP's and 1 mg intravenous vitamin K today hoping to lower the INR to a safe range. Cardiac catheterization can be performed today. Liver enzymes worsened slightly compared to yesterday. Renal function slightly worsened as well. She remains in atrial fibrillation with controlled rate and her blood pressure is normal. Chest x-ray is unchanged. Potassium was low 2.5 mmol/L and potassium supplement was provided. Sodium level is 25 mmol/L Exam Physical Exam Vital Signs: Temp Pulse Resp BP Pulse Ox O2 Del Method O2 Flow Rate 97 F L 83 15 108/68 100 Mechanical Ventilation 3 06/15/24 09:01 06/15/24 09:04 06/15/24 09:01 06/15/24 09:04 06/15/24 09:01 06/15/24 08:00 06/14/24 16:00 FiO2 40 06/15/24 08:00 Const General: other (Currently on the ventilator and sedated) Nutritional Appearance: overweight HEENT Head: normal to inspection, normocephalic and atraumatic Nose: external nose normal Face and sinus: normal facial exam Eyes Conjunctivae: conjunctivae normal Neck Neck: trachea midline Neck mass: No Thyroid: thyroid normal Carotids: normal carotid upstroke Resp Effort & Inspection: normal respiratory effort and labored Auscultation: clear to auscultation bilaterally Cardio Rate: regular rate Rhythm: abnormal rhythm irregularly irregular Heart Sounds: S1 normal and S2 normal GI Palpation: soft and no hepatosplenomegaly Auscultation: normal bowel sounds Extrem General: no clubbing, cyanosis or edema Objective Labs 06/15/24 05:00 06/15/24 05:00 Labs: Laboratory Results - last 24 hr 06/13/24 06/14/24 06/14/24 09:57 09:32 12:05 Corrected WBC Uncorrected WBC Count RBC Hgb Hct MCV MCH MCHC RDW Plt Count MPV Neut % (Auto) Lymph % (Auto) [place] % (Auto) Eos % (Auto) Baso % (Auto) Nucleat RBC Rel Count Neut # (Auto) Lymph # (Auto) [place] # (Auto) Eos # (Auto) Baso # (Auto) PT 28.5 H D INR 2.6 APTT Sample Site ABG pH ABG pCO2 ABG pO2 ABG HCO3 ABG Total CO2 ABG O2 Saturation ABG O2 Content ABG Base Excess Set Respiration Rate Vent Mode FiO2 Tidal Volume PEEP Critical Value PHA Creatinine Clear Sodium Potassium Chloride Carbon Dioxide Anion Gap BUN Creatinine Est GFR (CKD-EPI) Glucose POC Glucose Calcium Magnesium Total Bilirubin AST ALT Alkaline Phosphatase Total Protein Albumin Globulin Albumin/Globulin Ratio Triglycerides Urine Eosinophils 0 Ur Random Creatinine 68.00 Ur Sodium mmol/L 45.0 Vancomycin Peak 25.0 Vancomycin Trough Blood Type O Positive Antibody Screen Negative 06/14/24 06/14/24 06/14/24 12:10 18:15 18:17 Corrected WBC Uncorrected WBC Count RBC Hgb Hct MCV MCH MCHC RDW Plt Count MPV Neut % (Auto) Lymph % (Auto) [place] % (Auto) Eos % (Auto) Baso % (Auto) Nucleat RBC Rel Count Neut # (Auto) Lymph # (Auto) [place] # (Auto) Eos # (Auto) Baso # (Auto) PT INR APTT Sample Site Left brachial ABG pH 7.45 ABG pCO2 28.2 L* ABG pO2 99.1 ABG HCO3 19.1 L ABG Total CO2 19.9 L ABG O2 Saturation 97.6 ABG O2 Content 7.0 ABG Base Excess -3.8 L Set Respiration Rate 12 Vent Mode Ac FiO2 40 Tidal Volume 400 PEEP 5 Critical Value PHA Creatinine Clear Sodium Potassium Chloride Carbon Dioxide Anion Gap BUN Creatinine Est GFR (CKD-EPI) Glucose POC Glucose 218 218 Calcium Magnesium Total Bilirubin AST ALT Alkaline Phosphatase Total Protein Albumin Globulin Albumin/Globulin Ratio Triglycerides Urine Eosinophils Ur Random Creatinine Ur Sodium mmol/L Vancomycin Peak Vancomycin Trough Blood Type Antibody Screen 06/15/24 06/15/24 06/15/24 00:23 04:48 05:00 Corrected WBC 6.4 Uncorrected WBC Count 6.4 RBC 3.30 L Hgb 10.3 L Hct 29.2 L MCV 88.5 MCH 31.1 MCHC 35.2 H RDW 13.9 Plt Count 190 D MPV 8.6 Neut % (Auto) 87.5 Lymph % (Auto) 5.6 [place] % (Auto) 6.8 Eos % (Auto) 0.0 Baso % (Auto) 0.1 Nucleat RBC Rel Count 0.1 Neut # (Auto) 5.6 Lymph # (Auto) 0.4 L [place] # (Auto) 0.4 Eos # (Auto) 0.0 Baso # (Auto) 0.0 PT 32.3 H INR 2.9 APTT 32.1 Sample Site Left radial ABG pH 7.56 H ABG pCO2 26.3 L* ABG pO2 111.9 H ABG HCO3 22.9 L ABG Total CO2 23.7 ABG O2 Saturation 98.1 ABG O2 Content 6.9 ABG Base Excess 1.6 Set Respiration Rate 12 Vent Mode Ac FiO2 30 Tidal Volume 400 PEEP 5 Critical Value PHA Creatinine Clear 32.56 Sodium 125 L Potassium 2.5 L* Chloride 88 L Carbon Dioxide 25.5 Anion Gap 14.0 BUN 39 H Creatinine 1.49 H Est GFR (CKD-EPI) 35.734 Glucose 201 H POC Glucose 233 Calcium 8.2 L Magnesium 1.9 Total Bilirubin 1.1 H AST 1625 H ALT 1540 H Alkaline Phosphatase 142 H Total Protein 5.7 L Albumin 3.4 L Globulin 2.3 Albumin/Globulin Ratio 1.5 Triglycerides 160 H Urine Eosinophils Ur Random Creatinine Ur Sodium mmol/L Vancomycin Peak Vancomycin Trough Blood Type Antibody Screen 06/15/24 06/15/24 05:16 06:00 Corrected WBC Uncorrected WBC Count RBC Hgb Hct MCV MCH MCHC RDW Plt Count MPV Neut % (Auto) Lymph % (Auto) [place] % (Auto) Eos % (Auto) Baso % (Auto) Nucleat RBC Rel Count Neut # (Auto) Lymph # (Auto) [place] # (Auto) Eos # (Auto) Baso # (Auto) PT INR APTT Sample Site ABG pH ABG pCO2 ABG pO2 ABG HCO3 ABG Total CO2 ABG O2 Saturation ABG O2 Content ABG Base Excess Set Respiration Rate Vent Mode FiO2 Tidal Volume PEEP Critical Value PHA Creatinine Clear Sodium Potassium Chloride Carbon Dioxide Anion Gap BUN Creatinine Est GFR (CKD-EPI) Glucose POC Glucose 217 Calcium Magnesium Total Bilirubin AST ALT Alkaline Phosphatase Total Protein Albumin Globulin Albumin/Globulin Ratio Triglycerides Urine Eosinophils Ur Random Creatinine Ur Sodium mmol/L Vancomycin Peak Vancomycin Trough 16.2 Blood Type Antibody Screen ABG Interpretation ABG results: 06/15/24 04:48 ABG pH 7.56 H ABG pCO2 26.3 L* ABG pO2 111.9 H ABG HCO3 22.9 L ABG Total CO2 23.7 ABG O2 Saturation 98.1 ABG O2 Content 6.9 ABG Base Excess 1.6 A&P - Cardiology (1) Hypokalemia: Assessment/Problem Details: Potassium level still low at 2.5 mmol/L Plan: Potassium supplements provided, will maintain potassium level above 4 mmol/L Code(s): E87.6 - Hypokalemia (2) Hypomagnesemia: Assessment/Problem Details: Maintain magnesium level above 2 mg/dL Plan: Magnesium supplements Code(s): E83.42 - Hypomagnesemia (3) Elevated troponin: Assessment/Problem Details: Could be due to Takotsubo cardiomyopathy versus genuine significant CAD Plan: Cardiac catheterization today if INR is in the safe range Code(s): R79.89 - Other specified abnormal findings of blood chemistry (4) Hyponatremia: Assessment/Problem Details: This is still significantly reduced at 125 mmol/L Plan: Avoid WADE inhibitors/ARB's/ARNI Code(s): E87.1 - Hypo-osmolality and hyponatremia (5) COVID-19: Assessment/Problem Details: No evidence of pneumonia on chest x-ray Plan: Continue present treatment Code(s): U07.1 - COVID-19 (6) Essential (primary) hypertension: Assessment/Problem Details: Presently her blood pressure is getting under control Plan: Beta-blockers and Aldactone Code(s): I10 - Essential (primary) hypertension (7) Type 2 diabetes mellitus with hyperglycemia: Qualifiers: Diabetes mellitus assisted insulin use: without assisted use Qualified Code(s): E11.65 - Type 2 diabetes mellitus with hyperglycemia Plan: To be managed by the hospitalist Code(s): E11.65 - Type 2 diabetes mellitus with hyperglycemia (8) Permanent atrial fibrillation: Assessment/Problem Details: Heart rate is under control Plan: Continue metoprolol to tartrate for heart rate control, no anticoagulation sinceinvasive workup is planned Code(s): I48.21 - Permanent atrial fibrillation (9) Left ventricular systolic dysfunction: Assessment/Problem Details: Ejection fraction is down to 25?30% with severe regional wall motion abnormalities involving the anterior descending artery territory Plan: Due to hyponatremia will avoid WADE inhibitor, ARB and ARNI, continue beta- blockers and spironolactone, further plans to follow cardiac catheterization Code(s): I51.89 - Other ill-defined heart diseases (10) Non-ST elevation (NSTEMI) myocardial infarction: Assessment/Problem Details: Could be genuine CAD versus stress cardiomyopathy Plan: Cardiac catheterization tomorrow, if INR is in the safe range Code(s): I21.4 - Non-ST elevation (NSTEMI) myocardial infarction (11) Dyslipidemia: Plan: High intensity statin Code(s): E78.5 - Hyperlipidemia, unspecified (12) Respiratory failure: Assessment/Problem Details: Currently on the ventilator Plan: Pulmonary medicine is following the patient daily Code(s): J96.90 - Respiratory failure, unspecified, unspecified whether with hypoxia or hypercapnia (13) Liver failure: Assessment/Problem Details: Likely passive congestion of the liver from heart failure leading to worsening INR Plan: Treat heart failure Code(s): K72.90 - Hepatic failure, unspecified without coma (14) Multisystem organ failure: Plan: Focus on providing circulatory support, cardiac catheterization is the beginningstep with intervention to follow if necessary, no inotropes yet Plan Assessment: Septic shock New LV dysfunction EF 35-40%-possible Takotsubo cardiomyopathy. NYHA I symptoms. Euvolemic on exam Elevated troponin [id number]. Possible type II AZ from COVID myocarditis vs Takotsubo cardiomyopathy. Cannot rule out type I AZ. Lactic acidosis Hyponatremia Transaminitis in the setting of shock Permanent A-fib on Coumadin. Currently in slow VR. Hypertension Hyperlipidemia Diabetes type 2 CKD Echo completed today shows LVEF of 35-40% with wall motion abnormalities suggestive of Takotsubo cardiomyopathy. RVSP 40-50 mmHg. Normal RV size with moderately reduced function. Recommendations: - Start heparin gtt for possible ACS. Pt will need ischemic evaluation to r/o CAD once stable from a sepsis standpoint. - Wean Levophed for MAP greater than 65 - Start ASA & Statin. GDMT when BP is stable off pressors. Avoid BB if remains in slow VR. Monitor telemetry for arrhythmias. - Will obtain Mixed venous gas to calculate assumed Enrique cardiac output. Transduce CVP to guide fluid status and management -Given persistent lactic acidosis and increasing pressor requirements, recommendadditional 1 L fluid bolus with close monitoring of sodium and respiratory status. - Sepsis management per ICU team. -Will follow Documented By: Frandy Cabrera MD, [facility] 5 0915 Signed By: <Electronically signed by [facility] HOSPITALMoriah Cabrera> 06/15/24 0921 [facility] Work Phone: [phone]) [phone] [place] [address] Nephrology Progress Note Signed Patient: Lyric Juarez MR#: [id number] : 1945 Acct:[id number] Age/Sex: 78 / F Adm Date: 5 Loc: Room: [address] [place] [address] Type: ADM IN Attending Dr: Jaron Hicks MD Copies to: ~ Date of Service: 06/15/2024 Subjective Subjective Narrative: This is a 78-year-old female with medical history of atrial fibrillation, HTN, DM, CKD, HLD was presented to the [facility] after a fall. On evaluationin emergency room she was found to have afever with tachycardia. Her EKG showed A-fib with RVR and was given normal saline fluid boluses to improve her heart rate. She was transferred to the [facility] for sepsis management. Patient after arrival at [facility] was found to have a hypotension with a fall. She was given a normal saline bolus but due to the persistent hypotension she was moved to the intensive care unit and was started on Levophed. She was also given broad-spectrum antibioticsfor sepsis. Patient was also found to have a non-ST elevated AZ and cardiology was consulted. She had echocardiogram which showed EF 35 to 40% moderate pulmonary hypertension and dilated IVC. Cardiology also recommended a cardiac catheterization. Patient was also found to have a hyponatremia with serum sodium 123 to 124 mmol/L. She was given Bumex to improve her respiratory status. Nephrology is consulted for her hyponatremia management and CARMEN and risk stratification and prophylaxis. Interim history Patient was seen and examined at bedside. She was intubated yesterday due to the respiratory distress and in anticipation of cardiac catheterization. She ismaking good urine output with IV Bumex. Shewas also found to have hypokalemia and was given potassium chloride via G-tube. She is also orderedto have FFP and vitamin K to reverse INR for cardiac catheterization. Exam Physical Exam Vital Signs: Temp Pulse Resp BP Pulse Ox O2 Del Method O2 Flow Rate 96.4 F L 85 20 101/71 100 Mechanical Ventilation 3 06/15/24 10:00 06/15/24 10:06/15/24 10:00 06/15/24 10:00 06/15/24 10:00 06/15/24 10:00 06/14/24 16:00 FiO2 30 06/15/24 10:00 Narrative: General: Appears comfortable and not in distress Heart: S1-S2, no rub Lung: Bilateral air entry, no wheezing or crackles Abdomen: Soft, positive bowel sounds Extremities: Trace edema, no cyanosis Head: Atraumatic, normocephalic Ear: No external ear redness or tenderness Eyes: No pallor or redness Neck: Trachea is midline or no visible mass Skin: No rashes , warm to touch ANTISQUEAK FILLER: Intubated and sedated Musculoskeletal: No swelling or limitation of movement of the large joints Objective Intake and Output I&O: Intake & Output 06/12/24 06/13/24 06/14/24 06/15/24 23:59 23:59 23:59 23:59 Intake Total 250 / 250 2305 / 2305 1375 / 1375 1360 / 1360 Output Total 2150 / 2150 1650 / 1650 775 / 775 Balance 250 / 250 155 / 155 -275 / -275 585 / 585 Weight 83 kg 81.4 kg 80.2 kg 80.2 kg Meds and Allergies Meds: Active Medications Acetaminophen (Acetaminophen 325 Mg Tablet) 650 mg PO Q6HR PRN PRN Reason: Pain Scale 1 - 3 or fever Stop: 06/12/25 00:33 Acetylcysteine (Acetylcysteine 20% 4 Ml 200 Mg/Ml Vial) 600 mg PO BID [facility] Stop: 06/13/25 16:29 Last Admin: 06/15/24 08:43 Dose: 600 mg Albuterol (Albuterol Hfa 200 Puff/18 Gm Inhaler) 6 puff VENT Q6HR ERNESTINA Stop: 06/14/25 17:59 Last Admin: 06/15/24 04:39 Dose: 6 puff Albuterol/Ipratropium (Ipratropium/Albuterol 0.5-3 Mg 3 Ml Ampul.Neb) 3 ml INHALATION Q6H PRN PRN Reason: SOB OR WHEEZING Stop: 06/12/25 18:14 Last Admin: 06/13/24 08:53 Dose: 3 ml Aspirin (Aspirin 81 Mg Tab.Chew) 81 mg PO DAILY [facility] Stop: 06/12/25 09:59 Last Admin: 06/15/24 08:18 Dose: 81 mg Benzonatate (Benzonatate 100 Mg Capsule) 200 mg PO TID PRN PRN Reason: Cough Stop: 06/12/25 18:16 Last Admin: 06/13/24 17:54 Dose: 200 mg Chlorhexidine Gluconate (Chlorhexidine Gluconate 0.12% 15 Ml Udc) 15 ml MUCOUS MEM BID [facility] Stop: 06/14/25 20:59 Last Admin: 06/15/24 08:18 Dose: 15 ml Clopidogrel Bisulfate (Clopidogrel Bisulfate 75 Mg Tablet) 75 mg PO DAILY [facility] Stop: 06/14/25 08:59 Last Admin: 06/15/24 08:18 Dose: 75 mg Dextrose (Dextrose 50% In Water 25 Gm/50 Ml Syringe) 0 gm IV-PUSH PRN PRN PRN Reason: Hypoglycemia Stop: 06/12/25 00:39 Dorzolamide HCl (Dorzolamide 2% Op Soln 200 Drops/10 Ml Bottle) 1 drops EYE-BOTH DAILY [facility] Stop: 06/12/25 08:59 Last Admin: 06/15/24 08:19 Dose: 1 drops Glucose (Dextrose 40% Gel 15 Gm Tube) 0 gm PO PRN PRN PRN Reason: Hypoglycemia Stop: 06/12/25 00:39 Magnesium Sulfate (Magnesium Sulf 2gm-*Swfi*) 2 gm in 50 mls @ 25 mls/hr IV DAILY PRN PRN Reason: Magnesium Level < 1.5 Stop: 06/12/25 00:33 Last Infusion: 06/13/24 19:00 Dose: Infused Vancomycin HCl 1.25 gm/ (Dextrose) 275 mls @ 183.333 mls/hr IV Q24H [facility] Stop: 06/13/25 06:29 Last Infusion: 06/14/24 14:18 Dose: Infused Piperacillin Sod/Tazobactam Sod (Zosyn) 4.5 gm in 100 mls @ 25 mls/hr IV Q8H [facility] Last Admin: 06/15/24 05:16 Dose: 25 mls/hr Sodium Chloride (0.9% Sodium Chloride 500 Ml) 500 mls @ 0 mls/hr IV .Q0M [facility] Stop: 06/12/25 12:59 Last Admin: 06/14/24 09:39 Dose: 10 mls/hr Sodium Chloride (0.9% Sodium Chloride 100 Ml) 100 mls @ 20 mls/hr IV PROTOCOL PRN PRN Reason: BLOOD TRANSFUSION Stop: 06/15/24 14:05 Propofol (Diprivan) 1,000 mg in 100 mls @ 9.624 mls/hr IV .[id number] [facility]; Protocol Stop: 06/14/25 15:59 Last Admin: 06/15/24 09:04 Dose: 20 mcg/kg/min, 9.62 mls/hr Sodium Chloride (0.9% Sodium Chloride 100 Ml) 100 mls @ 20 mls/hr IV PROTOCOL PRN PRN Reason: BLOOD TRANSFUSION Stop: 06/16/24 07:00 Potassium Chloride (Potassium Chl 20meq-*Swfi*) 20 meq in 50 mls @ 25 mls/hr IVQ2H [facility] Stop: 06/15/24 12:10 Last Admin: 06/15/24 08:49 Dose: 25 mls/hr Magnesium Sulfate (Magnesium Sulf 4 Gm-*Swfi*) 4 gm in 100 mls @ 25 mls/hr IV ONCE ONE Stop: 06/15/24 13:47 Insulin Aspart (Insulin Aspart 300 Units/3 Ml) 0 units SUBCUT Q6HR [facility]; Protocol Stop: 06/14/25 17:59 Last Admin: 06/15/24 05:17 Dose: 2 units Melatonin (Melatonin 5 Mg Tablet) 5 mg PO QHS ERNESTINA Stop: 06/13/25 21:59 Last Admin: 06/14/24 21:19 Dose: Not Given Methylprednisolone Sodium Succinate (Methylprednisolone Sod Succ/Pf 40 Mg/Ml (1ml) Vial) 40 mg IV-PUSH Q12HR ERNESTINA Stop: 06/13/25 19:59 Last Admin: 06/15/24 08:18 Dose: 40 mg Metoprolol Tartrate (Metoprolol Tartrate 25 Mg Tablet) 25 mg PO BID [facility] Stop: 06/13/25 09:34 Last Admin: 06/15/24 08:18 Dose: 25 mg Metoprolol Tartrate (Metoprolol Tartrate 5 Mg/5 Ml Vial) 5 mg IV-PUSH Q6H PRN PRN Reason: Heart Rate- High Stop: 06/13/25 15:19 Last Admin: 06/14/24 00:00 Dose: 5 mg Miscellaneous Information (Consult To Pharmacy) 1 each MISCELLANE .PHACONSULT PRN; Protocol PRN Reason: ESA.Pharmacy Consult Stop: 06/14/25 15:14 Ondansetron HCl (Ondansetron 4 Mg/2 Ml Vial) 4 mg IV-PUSH Q8H PRN PRN Reason: Nausea And Vomiting Stop: 06/12/25 00:33 Last Admin: 06/14/24 09:45 Dose: 4 mg Pantoprazole Sodium (Pantoprazole 40 Mg Vial) 40 mg IV-PUSH DAILY [facility] Stop: 06/15/25 10:29 Potassium Chloride (Potassium Chloride Er 20 Meq Tab.Er.Prt) 20 meq PO DAILY PRN PRN Reason: Hypokalemia Stop: 06/12/25 00:33 Last Admin: 06/13/24 06:43 Dose: 20 meq Potassium Chloride (Potassium Chloride Er 20 Meq Tab.Er.Prt) 40 meq PO DAILY PRN PRN Reason: Hypokalemia Stop: 06/12/25 00:33 Potassium Chloride (Potassium Chloride Er 20 Meq Tab.Er.Prt) 40 meq PO STAT PRN PRN Reason: Hypokalemia Potassium Chloride (Potassium Chloride Liquid 20 Meq/15 Ml Udc) 40 meq PO DAILYPRN PRN Reason: Hypokalemia Stop: 06/15/25 06:42 Last Admin: 06/15/24 06:55 Dose: 40 meq Propofol (Propofol - Infusion Bolus 1,000 Mg/100 Ml Vial) 0 mg IV PROTOCOL PRN PRN Reason: Bolus Documentation Stop: 06/14/25 15:57 Sodium Chloride (Sodium Chloride 0.9 % 10 Ml Syringe) 0 ml IV-PUSH PRN PRN PRN Reason: Flush Stop: 06/13/25 10:28 Last Admin: 06/15/24 08:24 Dose: 10 ml Sodium Chloride (Sodium Chloride 0.9 % 10 Ml Syringe) 0 ml IV-PUSH PRN PRN PRN Reason: Flush Stop: 06/14/25 15:14 Sodium Chloride (Sodium Chloride 0.9 % 10 Ml Vial.Pf) 10 ml INJECTION DAILY ERNESTINA Stop: 06/15/25 10:29 Sodium Chloride (Sodium Chloride 0.9 % 10 Ml Syringe) 10 ml IV-PUSH PRN PRN PRN Reason: Flush Stop: 06/15/25 10:09 Spironolactone (Spironolactone 25 Mg Tablet) 25 mg PO DAILY ERNESTINA Stop: 06/16/25 08:59 Timolol Maleate (Timolol Mal 0.5% Op Soln 100 Drops/5 Ml Bottle) 1 drops EYE- BOTH DAILY ERNESTINA Stop: 06/12/25 08:59 Last Admin: 06/15/24 08:20 Dose: 1 drops Vancomycin HCl (Vancomycin - Pharmacy Dosing 1 Each Miscell) 1 each IV ONCE PRN; Protocol PRN Reason: ZZ.Pharmacy Consult Allergies flecainide Allergy (Unknown, Verified 05/17/24 08:07) Hives Results - Nephrology Labs 06/15/24 05:00 06/15/24 05:00 Labs: 06/15/24 05:00 BUN 39 H Creatinine 1.49 H Albumin 3.4 L Radiology Impressions Impressions - last 24 hours: Impressions Renal Ultrasound 06/14/24 08:40 IMPRESSION: No acute findings. Impression dictated by: Stevie Hernandez Jr., D.O.06/14/2024 3:15 PM Dictation Location: [facility]23 Chest X-Ray 06/14/24 14:13 IMPRESSION: Findings consistent with failure. Impression dictated by: Leo Bosch M.D.06/14/2024 4:27 PM Dictation Location: [facility] Chest X-Ray 06/14/24 17:02 IMPRESSION: Adequate position of endotracheal tube. Continued basilar pleural- parenchymal changes. Single view of Abdomen for NG tube placement The tip of the NG tube is in the Mid stomach. IMPRESSION: Adequate position of NG tube Impression dictated by: Leo Bosch M.D.06/14/2024 5:42 PM Dictation Location: [facility] Chest X-Ray 06/15/24 05:00 IMPRESSION: Unchanged chest. Impression dictated by: Giancarlo Hunt M.D.06/15/2024 8:31 AM Dictation Location: [facility] Any impression(s) listed above is documentation that was entered by the reading physician into a diagnostic report(s) for Lyric Juarez. I have reviewed the report(s) and am incorporating any findings in the treatment plan of this patient where applicable. A&P - Nephrology Assessment/Plan (1) Hyponatremia: Assessment/Problem Details: She appears to have a hyponatremia due to the combination of hypervolemia and SIADH. (2) Sepsis: Assessment/Problem Details: Patient present with a sepsis initially required vasopressors. She is off the vasopressors and currently on broad-spectrum antibiotic. (3) CKD stage 3a, GFR 45-59 ml/min: Assessment/Problem Details: She has a CKD due to the DM and HTN with baseline serum creatinine around 1.1 mg/dL. Her renal function initially was worse due to the hypotension but improved with optimization of her hemodynamics. (4) Non-ST elevation (NSTEMI) myocardial infarction: Assessment/Problem Details: Patient also diagnosed to have a AZ. Cardiology has been following the patient plan to do a cardiaccatheterization. (5) COVID-19: Assessment/Problem Details: Patient has COVID-19 infection. She is currently on steroids. Pulmonary has been following the patient. (6) Atrial fibrillation: Assessment/Problem Details: Patient has atrial fibrillation. Currently on metoprolol. (7) Warfarin-induced coagulopathy: Assessment/Problem Details: She has a supratherapeutic INR due to the Coumadin. She was given FFP and vitamin K. Plan * Will continue gentle fluid resuscitation for CARMEN prophylaxis. Her recent CardioMEMS setting of diuresis. * Will give potassium chloride 40 mEq IV x 1 dose * No need for 3% saline for now. If her serum sodium continues to drop then will start 3% saline * Continue IV antibiotics and adjust as needed based on culture sensitivity. Pharmacy to dose medication based on EGFR. * Continue management of COVID-19 infection and sporty failure as per pulmonary. * Continue management of CAD and A-fib as per cardiology. * Check renal function daily and monitor serum sodium closely * Monitor input output Daily and daily weight. * Documented By: Elvis Philip MD 06/15/24 1014 Signed By: 06/15/24 1029 [facility]02-05-2025 [place] [address] Cardiology Progress Note Signed Patient: Lyric Juarez MR#: [id number] : 1945 Acct:[id number] Age/Sex: 78 / F Adm Date: 5 Loc: Room: [address] [place] [address] Type: ADM IN Attending Dr: Jaron Hicks MD Copies to: ~ Date of Service: 06/15/2024 Subjective Principal diagnosis: Congestive heart failure/non-ST elevation myocardial infarction Interval history: Ms. Juarez is a 78 year old female with PMH significant for Permanent Afib on Coumadin, follows with Dr Cabrera, HTN, HLD, DM II, CKD who presented to [place] ER for 1 day history of weakness. She denied chest pain, dyspnea, palpitations, light headedness or syncope. She was found to have low grade feverand was in Afib with RVR. She tested positive for COVID and other labs were significant for hyponatremia of 123, serum creatinine of 1.4, lactate of 2.3, troponin [id number]. EKG showed atrial fibrillation with slow VR and a new left bundle branch block. 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 Overnight she had brief episode of syncope and weakness and she was found to be hypotensive with ablood pressure of 60/43. She received 2 L normal saline without improvement andwas transferred to the ICU and started on Levophed. This a.m. she is awake and alert, she denies any chest pain, dyspnea or palpitations. She remains on Levophed at 12 with a MAP of 73. Chest x-ray completed today shows cardiomegaly with left lobe airspace disease and a small left pleural effusion. Echo completed today shows LVEF of 35-40% with wall motion abnormalities suggestive of Takotsubo cardiomyopathy. RVSP 40-50 mmHg. Normal RV size with moderately reduced function. Cardiology follow-up 06/13/2024: Patient is resting comfortably in the ICU. She denies any dyspnea orchest pain. Her blood pressure is now elevated and heart rate exceeded 100 bpm atrial fibrillation.INR is 3.4. She is on heparin drip as well. The patient's renal function is stable except for having low sodium 124 mmol/L. Magnesium 1.6 mg/dL and supplements have been provided. Echocardiogram suggest evidence of severe left ventricular systolic dysfunction with akinesis of the anteroseptal and apical segment. This could be stress cardiomyopathy, however, underlying severe CAD cannot be excluded and therefore coronary angiography is going to be necessary. Since her INR is supratherapeutic the cardiac catheterization has been postponed till tomorrow. Will reverse the Coumadin defect with fresh frozen plasma tomorrow and proceed with cardiac catheterization. The patient is in agreement withthe plan. In the meantime we will need to have more aggressive treatment of hypertension and heart rate and because of this metoprolol be resumed and will add spironolactone. Will avoid WADE inhibitors, ARB or ARNI due to hyponatremia. Discussed the case with the patient and with Dr. Chanel Cardiology follow-up 06/14/2024: Patient is getting worse, her work of breathing is getting harder and cannot carry on a conversation with tachypnea. Chest x-ray demonstrated worsening compared to her initial film with more blunting of the costophrenic angles. Poor respiratory effort was noted. Her sodium is downto 223 mmol/L. Her transaminase is 10 times more what it was yesterday, creatinine is rising. Her sodium excretion is diminished. She is becoming moreanxious and remains tachycardic with atrial fibrillation. Despite receiving 2 units of FFP and 5 mg of oral vitamin K her INR has droppedto 2.6 only. Cardiac catheterization therefore could not be carried out. I discussed the case at [facility] with the patient's son and another lady who I believe his and discussed the case at lengthwith Dr. Chanel. Our recommendations were tointubate the patient and sedate her while mechanically ventilated allowing for things to settle down so that we can do cardiac catheterization comfortably and safely tomorrow morning after reversing Coumadin. They agreed and allowed us toproceed with this plan. More FFP will be provided this evening hoping that INR will be less than 2 tomorrow. The cardiac catheterization is tentatively scheduled for 8:00 tomorrow morning. Cardiology follow-up 06/15/2024: Patient was intubated last evening and remained stable overnight. Despite receiving FFP and vitamin K INR today is 2.9. Patient will receive more FFP's and 1 mg intravenous vitamin K today hoping to lower the INR to a safe range. Cardiac catheterization can be performed today. Liver enzymes worsened slightly compared to yesterday. Renal function slightly worsened aswell. She remains in atrial fibrillation with controlled rate and her blood pressure is normal. Chest x-ray is unchanged. Potassium was low 2.5 mmol/L and potassium supplement was provided. Sodium level is 25 mmol/L Exam Physical Exam Vital Signs: Temp Pulse Resp BP Pulse Ox O2 Del Method O2 Flow Rate 97 F L 83 15 108/68 100 Mechanical Ventilation 3 06/15/24 09:01 06/15/24 09:04 06/15/24 09:01 06/15/24 09:04 06/15/24 09:01 06/15/24 08:00 06/14/24 16:00 FiO2 40 06/15/24 08:00 Const General: other (Currently on the ventilator and sedated) Nutritional Appearance: overweight HEENT Head: normal to inspection, normocephalic and atraumatic Nose: external nose normal Face and sinus: normal facial exam Eyes Conjunctivae: conjunctivae normal Neck Neck: trachea midline Neck mass: No Thyroid: thyroid normal Carotids: normal carotid upstroke Resp Effort & Inspection: normal respiratory effort and labored Auscultation: clear to auscultation bilaterally Cardio Rate: regular rate Rhythm: abnormal rhythm irregularly irregular Heart Sounds: S1 normal and S2 normal GI Palpation: soft and no hepatosplenomegaly Auscultation: normal bowel sounds Extrem General: no clubbing, cyanosis or edema Objective Labs 06/15/24 05:00 06/15/24 05:00 Labs: Laboratory Results - last 24 hr 06/13/24 06/14/24 06/14/24 09:57 09:32 12:05 Corrected WBC Uncorrected WBC Count RBC Hgb Hct MCV MCH MCHC RDW Plt Count MPV Neut % (Auto) Lymph % (Auto) [place] % (Auto) Eos % (Auto) Baso % (Auto) Nucleat RBC Rel Count Neut # (Auto) Lymph # (Auto) [place] # (Auto) Eos # (Auto) Baso # (Auto) PT 28.5 H D INR 2.6 APTT Sample Site ABG pH ABG pCO2 ABG pO2 ABG HCO3 ABG Total CO2 ABG O2 Saturation ABG O2 Content ABG Base Excess Set Respiration Rate Vent Mode FiO2 Tidal Volume PEEP Critical Value PHA Creatinine Clear Sodium Potassium Chloride Carbon Dioxide Anion Gap BUN Creatinine Est GFR (CKD-EPI) Glucose POC Glucose Calcium Magnesium Total Bilirubin AST ALT Alkaline Phosphatase Total Protein Albumin Globulin Albumin/Globulin Ratio Triglycerides Urine Eosinophils 0 Ur Random Creatinine 68.00 Ur Sodium mmol/L 45.0 Vancomycin Peak 25.0 Vancomycin Trough Blood Type O Positive Antibody Screen Negative 06/14/24 06/14/24 06/14/24 12:10 18:15 18:17 Corrected WBC Uncorrected WBC Count RBC Hgb Hct MCV MCH MCHC RDW Plt Count MPV Neut % (Auto) Lymph % (Auto) [place] % (Auto) Eos % (Auto) Baso % (Auto) Nucleat RBC Rel Count Neut # (Auto) Lymph # (Auto) [place] # (Auto) Eos # (Auto) Baso # (Auto) PT INR APTT Sample Site Left brachial ABG pH 7.45 ABG pCO2 28.2 L* ABG pO2 99.1 ABG HCO3 19.1 L ABG Total CO2 19.9 L ABG O2 Saturation 97.6 ABG O2 Content 7.0 ABG Base Excess -3.8 L Set Respiration Rate 12 Vent Mode Ac FiO2 40 Tidal Volume 400 PEEP 5 Critical Value PHA Creatinine Clear Sodium Potassium Chloride Carbon Dioxide Anion Gap BUN Creatinine Est GFR (CKD-EPI) Glucose POC Glucose 218 218 Calcium Magnesium Total Bilirubin AST ALT Alkaline Phosphatase Total Protein Albumin Globulin Albumin/Globulin Ratio Triglycerides Urine Eosinophils Ur Random Creatinine Ur Sodium mmol/L Vancomycin Peak Vancomycin Trough Blood Type Antibody Screen 06/15/24 06/15/24 06/15/24 00:23 04:48 05:00 Corrected WBC 6.4 Uncorrected WBC Count 6.4 RBC 3.30 L Hgb 10.3 L Hct 29.2 L MCV 88.5 MCH 31.1 MCHC 35.2 H RDW 13.9 Plt Count 190 D MPV 8.6 Neut % (Auto) 87.5 Lymph % (Auto) 5.6 [place] % (Auto) 6.8 Eos % (Auto) 0.0 Baso % (Auto) 0.1 Nucleat RBC Rel Count 0.1 Neut # (Auto) 5.6 Lymph # (Auto) 0.4 L [place] # (Auto) 0.4 Eos # (Auto) 0.0 Baso # (Auto) 0.0 PT 32.3 H INR 2.9 APTT 32.1 Sample Site Left radial ABG pH 7.56 H ABG pCO2 26.3 L* ABG pO2 111.9 H ABG HCO3 22.9 L ABG Total CO2 23.7 ABG O2 Saturation 98.1 ABG O2 Content 6.9 ABG Base Excess 1.6 Set Respiration Rate 12 Vent Mode Ac FiO2 30 Tidal Volume 400 PEEP 5 Critical Value PHA Creatinine Clear 32.56 Sodium 125 L Potassium 2.5 L* Chloride 88 L Carbon Dioxide 25.5 Anion Gap 14.0 BUN 39 H Creatinine 1.49 H Est GFR (CKD-EPI) 35.734 Glucose 201 H POC Glucose 233 Calcium 8.2 L Magnesium 1.9 Total Bilirubin 1.1 H AST 1625 H ALT 1540 H Alkaline Phosphatase 142 H Total Protein 5.7 L Albumin 3.4 L Globulin 2.3 Albumin/Globulin Ratio 1.5 Triglycerides 160 H Urine Eosinophils Ur Random Creatinine Ur Sodium mmol/L Vancomycin Peak Vancomycin Trough Blood Type Antibody Screen 06/15/24 06/15/24 05:16 06:00 Corrected WBC Uncorrected WBC Count RBC Hgb Hct MCV MCH MCHC RDW Plt Count MPV Neut % (Auto) Lymph % (Auto) [place] % (Auto) Eos % (Auto) Baso % (Auto) Nucleat RBC Rel Count Neut # (Auto) Lymph # (Auto) [place] # (Auto) Eos # (Auto) Baso # (Auto) PT INR APTT Sample Site ABG pH ABG pCO2 ABG pO2 ABG HCO3 ABG Total CO2 ABG O2 Saturation ABG O2 Content ABG Base Excess Set Respiration Rate Vent Mode FiO2 Tidal Volume PEEP Critical Value PHA Creatinine Clear Sodium Potassium Chloride Carbon Dioxide Anion Gap BUN Creatinine Est GFR (CKD-EPI) Glucose POC Glucose 217 Calcium Magnesium Total Bilirubin AST ALT Alkaline Phosphatase Total Protein Albumin Globulin Albumin/Globulin Ratio Triglycerides Urine Eosinophils Ur Random Creatinine Ur Sodium mmol/L Vancomycin Peak Vancomycin Trough 16.2 Blood Type Antibody Screen ABG Interpretation ABG results: 06/15/24 04:48 ABG pH 7.56 H ABG pCO2 26.3 L* ABG pO2 111.9 H ABG HCO3 22.9 L ABG Total CO2 23.7 ABG O2 Saturation 98.1 ABG O2 Content 6.9 ABG Base Excess 1.6 A&P - Cardiology (1) Hypokalemia: Assessment/Problem Details: Potassium level still low at 2.5 mmol/L Plan: Potassium supplements provided, will maintain potassium level above 4 mmol/L Code(s): E87.6 - Hypokalemia (2) Hypomagnesemia: Assessment/Problem Details: Maintain magnesium level above 2 mg/dL Plan: Magnesium supplements Code(s): E83.42 - Hypomagnesemia (3) Elevated troponin: Assessment/Problem Details: Could be due to Takotsubo cardiomyopathy versus genuine significant CAD Plan: Cardiac catheterization today if INR is in the safe range Code(s): R79.89 - Other specified abnormal findings of blood chemistry (4) Hyponatremia: Assessment/Problem Details: This is still significantly reduced at 125 mmol/L Plan: Avoid WADE inhibitors/ARB's/ARNI Code(s): E87.1 - Hypo-osmolality and hyponatremia (5) COVID-19: Assessment/Problem Details: No evidence of pneumonia on chest x-ray Plan: Continue present treatment Code(s): U07.1 - COVID-19 (6) Essential (primary) hypertension: Assessment/Problem Details: Presently her blood pressure is getting under control Plan: Beta-blockers and Aldactone Code(s): I10 - Essential (primary) hypertension (7) Type 2 diabetes mellitus with hyperglycemia: Qualifiers: Diabetes mellitus cra officer insulin use: without assisted use Qualified Code(s): E11.65 - Type 2 diabetes mellitus with hyperglycemia Plan: To be managed by the hospitalist Code(s): E11.65 - Type 2 diabetes mellitus with hyperglycemia (8) Permanent atrial fibrillation: Assessment/Problem Details: Heart rate is under control Plan: Continue metoprolol to tartrate for heart rate control, no anticoagulation sinceinvasive workup is planned Code(s): I48.21 - Permanent atrial fibrillation (9) Left ventricular systolic dysfunction: Assessment/Problem Details: Ejection fraction is down to 25?30% with severe regional wall motion abnormalities involving the anterior descending artery territory Plan: Due to hyponatremia will avoid WADE inhibitor, ARB and ARNI, continue beta- blockers and spironolactone, further plans to follow cardiac catheterization Code(s): I51.89 - Other ill-defined heart diseases (10) Non-ST elevation (NSTEMI) myocardial infarction: Assessment/Problem Details: Could be genuine CAD versus stress cardiomyopathy Plan: Cardiac catheterization tomorrow, if INR is in the safe range Code(s): I21.4 - Non-ST elevation (NSTEMI) myocardial infarction (11) Dyslipidemia: Plan: High intensity statin Code(s): E78.5 - Hyperlipidemia, unspecified (12) Respiratory failure: Assessment/Problem Details: Currently on the ventilator Plan: Pulmonary medicine is following the patient daily Code(s): J96.90 - Respiratory failure, unspecified, unspecified whether with hypoxia or hypercapnia (13) Liver failure: Assessment/Problem Details: Likely passive congestion of the liver from heart failure leading to worsening INR Plan: Treat heart failure Code(s): K72.90 - Hepatic failure, unspecified without coma (14) Multisystem organ failure: Plan: Focus on providing circulatory support, cardiac catheterization is the beginningstep with intervention to follow if necessary, no inotropes yet Plan Assessment: Septic shock New LV dysfunction EF 35-40%-possible Takotsubo cardiomyopathy. NYHA I symptoms. Euvolemic on exam Elevated troponin [id number]. Possible type II AZ from COVID myocarditis vs Takotsubo cardiomyopathy. Cannot rule out type I AZ. Lactic acidosis Hyponatremia Transaminitis in the setting of shock Permanent A-fib on Coumadin. Currently in slow VR. Hypertension Hyperlipidemia Diabetes type 2 CKD Echo completed today shows LVEF of 35-40% with wall motion abnormalities suggestive of Takotsubo cardiomyopathy. RVSP 40-50 mmHg. Normal RV size with moderately reduced function. Recommendations: - Start heparin gtt for possible ACS. Pt will need ischemic evaluation to r/o CAD once stable from a sepsis standpoint. - Wean Levophed for MAP greater than 65 - Start ASA & Statin. GDMT when BP is stable off pressors. Avoid BB if remains in slow VR. Monitor telemetry for arrhythmias. - Will obtain Mixed venous gas to calculate assumed Enrique cardiac output. Transduce CVP to guide fluid status and management -Given persistent lactic acidosis and increasing pressor requirements, recommendadditional 1 L fluid bolus with close monitoring of sodium and respiratory status. - Sepsis management per ICU team. -Will follow Documented By: Frandy Cabrera MD, [facility] 5 0915 Signed By: 06/15/24 0921 [facility]02-05-2025 Progress note Author Jaron Hicks [facility] Note Date/Time June 15, 2024 1 :30am [facility] [address] [place] [address] Hospitalist Progress Note Signed Patient: Lyric Juarez MR#: [id number] : 1945 Acct:[id number] Age/Sex: 78 / F Adm Date: 5 Loc: Room: [address] [place] [address] Type: ADM IN Attending Dr: Jaron Hicks MD Copies to: ~ Date of Service: 06/14/2024 Subjective Subjective Narrative: Assessment And Plan 78F with history of atrial fibrillation, HTN, HLD, DM, CKD, Afib, and URSULA who presented to [place] ED presented after dizziness associated with a fall and was transferred for possible UTI /sepsis Rule out Septic shock - resolved lactic acidosis - resolved the patient is afebrile there is no significant leukocytosis She was started on Zosyn/vancomycin empirically. She required norepinephrine drip despite appropriate IV fluids Influenza A and B Antigen [place] [facility] negative Blood Cx at [place] [facility] 06/11 no growth at 36-48h UA [place] [facility] with WBC < 10 blood culture 06/12 negative so far Pulmonary was consulted, recommendation appreciated. Lactic acidosis could be related to metformin use; her shock could be more cardiogenic Hypoxia Covid19 infection ABG shows no hypercapnia SARS-CoV-2 Ag positive at [facility] CXR shows left lower lobe airspace disease and small left pleural effusion. Add IV steroids due to wheezing Breathing Tx as needed Pulmonary on consult Afib RVR - resolved She Presented with A-fib with rapid ventricular rate to [place] ED. Currently slow rate Hyponatremia Na remains low 124 asymptomatic not improving. Urine Osmolality 583, Urine Na 18 BMP in am nephrology recommendation appreciated KARIS Cr 1.4 on admission, Cr today 1.2 Rule out NSTEMI Troponin is > 10K Echo shoes EF 40% . Takotsubo Syndrome, Mild AR , RVSP 40-50mmHg Started on heparin gtt for possible ACS ASA Cardiology was consulted, recommendation appreciated. plan for intubation for [facility] d/w Dr. Chanel Elevated LFTs AST/ALT elevated . TB wnl Likely due to shock (ischemic hepatitis) vs congestive hepatitis Hold on statin CMP in am Favor GI consult Hypomagnesemia Mg 1.1 on admission Replaced as needed DM blood sugars were reviewed sliding scale insulin and accuchecks. hold oral antidiabetic medication/metformin. Fall CT head/brain wo con ( [place] [facility]) shows no acute finding CT cervical spine wo con ([facility]) shows No acute cervical spinal fracture CXR ([facility]) no acute finding LINTERVAL HPI: As Above, Pt resting in bed. Denies any chest pain. still having cough and require O2, Na 123, ALT/AST > 1000 Chronic diseases: Unless mentioned Above, Essential home medications have been continued. DVT Px: Addressed Disposition: To be determined Plan of care Discussed with: the medical team, the patient L Exam Physical Exam Vital Signs: Temp Pulse Resp BP Pulse Ox O2 Del Method O2 Flow Rate 36.3 C L 104 H 28 H 119/92 93 L Nasal Cannula 3 06/14/24 13:00 06/14/24 14:00 06/14/24 14:00 06/14/24 14:00 06/14/24 14:00 06/14/24 14:00 06/14/24 14:00 Narrative: GEN: NAD, Cooperative LUNGS: scattered wheezing . tachypneic respiratory effort CV: nl S1 S2; no M/R/G, ? carotid bruits ABD: Soft, ND, NT, + BS, EXT: No peripheral edema, No calf muscle tenderness NEURO: ? FND. PSYCH: nl affect, AOx3 Objective Lab Results 06/14/24 04:40 06/14/24 04:40 Microbiology Results Microbiology 06/12/24 05:56 Blood - Right Hand Blood Culture - Preliminary No Growth 2 Days 06/12/24 06:05 Blood - Left Hand Blood Culture - Preliminary No Growth 2 Days Meds Allergies and Active Meds Allergies flecainide Allergy (Unknown, Verified 05/17/24 08:07) Hives Active Meds: Active Medications Generic Name Dose Route Start Last Admin Trade Name Freq PRN Reason Stop Dose Admin Acetaminophen 650 mg 06/12/24 00:34 Acetaminophen 325 Mg Tablet PO 06/12/25 00:33 Q6HR PRN Pain Scale 1 - 3 or fever Acetylcysteine 600 mg 06/13/24 16:30 06/14/24 08:12 Acetylcysteine 20% 30 Ml 200 Mg/Ml Vial PO 06/14/24 21:01 600 mg BID ERNESTINA Administration Albuterol 6 puff 06/14/24 18:00 Albuterol Hfa 200 Puff/18 Gm Inhaler VENT 06/14/25 17:59 Q6HR ERNESTINA Albuterol/Ipratropium 3 ml 06/12/24 18:03 06/13/24 08:53 Ipratropium/Albuterol 0.5-3 Mg 3 Ml Ampul.Neb INHALATION 06/12/25 18:14 3 ml Q6H PRN Administration SOB OR WHEEZING Aspirin 81 mg 06/12/24 10:00 06/14/24 09:38 Aspirin 81 Mg Tab.Chew PO 06/12/25 09:59 81 mg DAILY ERNESTINA Administration Benzonatate 200 mg 06/12/24 18:17 06/13/24 17:54 Benzonatate 100 Mg Capsule PO 06/12/25 18:16 200 mg TID PRN Administration Cough Chlorhexidine Gluconate 15 ml 06/14/24 21:00 Chlorhexidine Gluconate 0.12% 15 Ml Udc MUCOUS MEM 06/14/25 20:59 BID ERNESITNA Clopidogrel Bisulfate 75 mg 06/14/24 09:00 06/14/24 09:38 Clopidogrel Bisulfate 75 Mg Tablet PO 06/14/25 08:59 75 mg DAILY ERNESTINA Administration Dextrose 0 gm 06/12/24 00:40 Dextrose 50% In Water 25 Gm/50 Ml Syringe IV-PUSH 06/12/25 00:39 PRN PRN Hypoglycemia Dorzolamide HCl 1 drops 06/12/24 09:00 06/14/24 08:11 Dorzolamide 2% Op Soln 200 Drops/10 Ml Bottle EYE-BOTH 06/12/25 08:59 1 drops DAILY ERNESTINA Administration Glucose 0 gm 06/12/24 00:40 Dextrose 40% Gel 15 Gm Tube PO 06/12/25 00:39 PRN PRN Hypoglycemia Magnesium Sulfate 2 gm in 50 mls @ 25 mls/hr 06/12/24 00:34 06/13/24 19:00 Magnesium Sulf 2gm-*Swfi* IV 06/12/25 00:33 Infused DAILY PRN Infusion Magnesium Level < 1.5 Vancomycin HCl 1.25 gm/ 275 mls @ 183.333 mls/hr 06/13/24 06:30 06/14/24 05:30 Dextrose IV 06/13/25 06:29 167 mls/hr Q24H ERNESTINA Administration Piperacillin Sod/Tazobactam Sod 4.5 gm in 100 mls @ 25 mls/hr 06/12/24 14:00 06/14/24 05:19 Zosyn IV 25 mls/hr Q8H ERNESTINA Administration Sodium Chloride 500 mls @ 0 mls/hr 06/12/24 13:00 06/14/24 09:39 0.9% Sodium Chloride 500 Ml IV 06/12/25 12:59 10 mls/hr .Q0M ERNESTINA Administration Per Protocol Sodium Chloride 100 mls @ 20 mls/hr 06/14/24 07:49 0.9% Sodium Chloride 100 Ml IV 06/15/24 07:48 PROTOCOL PRN BLOOD TRANSFUSION Sodium Chloride 100 mls @ 20 mls/hr 06/14/24 14:06 0.9% Sodium Chloride 100 Ml IV 06/15/24 14:05 PROTOCOL PRN BLOOD TRANSFUSION Insulin Aspart 0 units 06/14/24 18:00 Insulin Aspart 300 Units/3 Ml SUBCUT 06/14/25 17:59 Q6HR ERNESTINA Protocol Melatonin 5 mg 06/13/24 22:00 06/13/24 21:39 Melatonin 5 Mg Tablet PO 06/13/25 21:59 5 mg QHS ERNESTINA Administration Methylprednisolone Sodium Succinate 40 mg 06/13/24 20:00 06/14/24 08:11 Methylprednisolone Sod Succ/Pf 40 Mg/Ml (1ml) Vial IV-PUSH 06/13/25 19:59 40 mg Q12HR ERNESTINA Administration Metoprolol Tartrate 25 mg 06/13/24 09:35 06/14/24 08:10 Metoprolol Tartrate 25 Mg Tablet PO 06/13/25 09:34 25 mg BID ERNESTINA Administration Metoprolol Tartrate 5 mg 06/13/24 15:20 02/04/25 00:00 Metoprolol Tartrate 5 Mg/5 Ml Vial IV-PUSH 06/13/25 15:19 5 mg Q6H PRN Administration Heart Rate- High Miscellaneous Information 1 each 06/13/24 10:29 Consult To Pharmacy [facility] 06/13/25 10:28 .PHACONSULT PRN ZZ.Pharmacy Consult Protocol Miscellaneous Information 1 each 06/14/24 15:15 Consult To Pharmacy [facility] 06/14/25 15:14 .PHACONSULT PRN ZZ.Pharmacy Consult Protocol Ondansetron HCl 4 mg 06/12/24 00:34 06/14/24 09:45 Ondansetron 4 Mg/2 Ml Vial IV-PUSH 06/12/25 00:33 4 mg Q8H PRN Administration Nausea And Vomiting Potassium Chloride 20 meq 06/12/24 00:34 06/13/24 06:43 Potassium Chloride Er 20 Meq Tab.Er.Prt PO 06/12/25 00:33 20 meq DAILY PRN Administration Hypokalemia Potassium Chloride 40 meq 06/12/24 00:34 Potassium Chloride Er 20 Meq Tab.Er.Prt PO 06/12/25 00:33 DAILY PRN Hypokalemia Potassium Chloride 40 meq 06/15/24 07:00 Potassium Chloride Er 20 Meq Tab.Er.Prt PO STAT PRN Hypokalemia Sodium Chloride 0 ml 06/13/24 10:29 Sodium Chloride 0.9 % 10 Ml Syringe IV-PUSH 06/13/25 10:28 PRN PRN Flush Sodium Chloride 0 ml 06/14/24 15:15 Sodium Chloride 0.9 % 10 Ml Syringe IV-PUSH 06/14/25 15:14 PRN PRN Flush Spironolactone 25 mg 06/15/24 09:00 Spironolactone 25 Mg Tablet PO 06/15/25 08:59 DAILY ERNESTINA Timolol Maleate 1 drops 06/12/24 09:00 06/14/24 08:11 Timolol Mal 0.5% Op Soln 100 Drops/5 Ml Bottle EYE-BOTH 06/12/25 08:59 1 drops DAILY ERNESTINA Administration Vancomycin HCl 1 each 06/12/24 05:02 Vancomycin - Pharmacy Dosing 1 Each Miscell IV ONCE PRN ZZ.Pharmacy Consult Protocol A&P - Hospitalist Assessment/Plan (1) COVID-19: Plan Documented By: Jaron Hicks MD 06/14/24 1558 Signed By: <Electronically signed by Jaron Hicks MD> 06/15/24 0130 [facility] Work Phone: [phone] 993-818302-05-2025 [place] [id number] Hospital[place] Progress Note Signed Patient: Lyric Juarez MR#: [id number] : 1945 Acct:[id number] Age/Sex: 78 / F Adm Date: 5 Loc: Room: [address] [place] [address] Type: ADM IN Attending Dr: Jaron Hicks MD Copies to: ~ Date of Service: 06/14/2024 Subjective Subjective Narrative: Assessment And Plan 78F with history of atrial fibrillation, HTN, HLD, DM, CKD, Afib, and URSULA who presented to [facility] presented after dizziness associated with a fall and was transferred for possible UTI /sepsis Rule out Septic shock - resolved lactic acidosis - resolved the patient is afebrile there is no significant leukocytosis She was started on Zosyn/vancomycin empirically. She required norepinephrine drip despite appropriate IV fluids Influenza A and B Antigen [place] [facility] negative Blood Cx at [place] [facility] 06/11 no growth at 36-48h UA [place] [facility] with WBC < 10 blood culture / negative so far Pulmonary was consulted, recommendation appreciated. Lactic acidosis could be related to metformin use; her shock could be more cardiogenic Hypoxia Covid19 infection ABG shows no hypercapnia SARS-CoV-2 Ag positive at [facility] CXR shows left lower lobe airspace disease and small left pleural effusion. Add IV steroids due to wheezing Breathing Tx as needed Pulmonary on consult Afib RVR - resolved She Presented with A-fib with rapid ventricular rate to [place] [facility]. Currently slow rate Hyponatremia Na remains low 124 asymptomatic not improving. Urine Osmolality 583, Urine Na 18 BMP in am nephrology recommendation appreciated KARIS Cr 1.4 on admission, Cr today 1.2 Rule out NSTEMI Troponin is > 10K Echo shoes EF 40% . Takotsubo Syndrome, Mild AR , RVSP 40-50mmHg Started on heparin gtt for possible ACS ASA Cardiology was consulted, recommendation appreciated. plan for intubation for [facility] d/w Dr. Chanel Elevated LFTs AST/ALT elevated . TB wnl Likely due to shock (ischemic hepatitis) vs congestive hepatitis Hold on statin CMP in am Favor GI consult Hypomagnesemia Mg 1.1 on admission Replaced as needed DM blood sugars were reviewed sliding scale insulin and accuchecks. hold oral antidiabetic medication/metformin. Fall CT head/brain wo con ( [place] [facility]) shows no acute finding CT cervical spine wo con ([facility]) shows No acute cervical spinal fracture CXR ([facility]) no acute finding LINTERVAL HPI: As Above, Pt resting in bed. Denies any chest pain. still having cough and require O2, Na 123, ALT/AST > 1000 Chronic diseases: Unless mentioned Above, Essential home medications have been continued. DVT Px: Addressed Disposition: To be determined Plan of care Discussed with: the medical team, the patient L Exam Physical Exam Vital Signs: Temp Pulse Resp BP Pulse Ox O2 Del Method O2 Flow Rate 36.3 C L 104 H 28 H 119/92 93 L Nasal Cannula 3 06/14/24 13:00 06/14/24 14:00 06/14/24 14:00 06/14/24 14:00 06/14/24 14:00 06/14/24 14:00 06/14/24 14:00 Narrative: GEN: NAD, Cooperative LUNGS: scattered wheezing . tachypneic respiratory effort CV: nl S1 S2; no M/R/G, ? carotid bruits ABD: Soft, ND, NT, + BS, EXT: No peripheral edema, No calf muscle tenderness NEURO: ? FND. PSYCH: nl affect, AOx3 Objective Lab Results 06/14/24 04:40 06/14/24 04:40 Microbiology Results Microbiology 06/12/24 05:56 Blood - Right Hand Blood Culture - Preliminary No Growth 2 Days 06/12/24 06:05 Blood - Left Hand Blood Culture - Preliminary No Growth 2 Days Meds Allergies and Active Meds Allergies flecainide Allergy (Unknown, Verified 05/17/24 08:07) Hives Active Meds: Active Medications Generic Name Dose Route Start Last Admin Trade Name Freq PRN Reason Stop Dose Admin Acetaminophen 650 mg 06/12/24 00:34 Acetaminophen 325 Mg Tablet PO 06/12/25 00:33 Q6HR PRN Pain Scale 1 - 3 or fever Acetylcysteine 600 mg 06/13/24 16:30 06/14/24 08:12 Acetylcysteine 20% 30 Ml 200 Mg/Ml Vial PO 06/14/24 21:01 600 mg BID ERNESTINA Administration Albuterol 6 puff 06/14/24 18:00 Albuterol Hfa 200 Puff/18 Gm Inhaler VENT 06/14/25 17:59 Q6HR ERNESTINA Albuterol/Ipratropium 3 ml 06/12/24 18:03 06/13/24 08:53 Ipratropium/Albuterol 0.5-3 Mg 3 Ml Ampul.Neb INHALATION 06/12/25 18:14 3 ml Q6H PRN Administration SOB OR WHEEZING Aspirin 81 mg 06/12/24 10:00 06/14/24 09:38 Aspirin 81 Mg Tab.Chew PO 06/12/25 09:59 81 mg DAILY ERNESTINA Administration Benzonatate 200 mg 06/12/24 18:17 06/13/24 17:54 Benzonatate 100 Mg Capsule PO 06/12/25 18:16 200 mg TID PRN Administration Cough Chlorhexidine Gluconate 15 ml 06/14/24 21:00 Chlorhexidine Gluconate 0.12% 15 Ml Udc MUCOUS MEM 06/14/25 20:59 BID ERNESTINA Clopidogrel Bisulfate 75 mg 06/14/24 09:00 06/14/24 09:38 Clopidogrel Bisulfate 75 Mg Tablet PO 06/14/25 08:59 75 mg DAILY ERNESTINA Administration Dextrose 0 gm 06/12/24 00:40 Dextrose 50% In Water 25 Gm/50 Ml Syringe IV-PUSH 06/12/25 00:39 PRN PRN Hypoglycemia Dorzolamide HCl 1 drops 06/12/24 09:00 06/14/24 08:11 Dorzolamide 2% Op Soln 200 Drops/10 Ml Bottle EYE-BOTH 06/12/25 08:59 1 drops DAILY ERNESTINA Administration Glucose 0 gm 06/12/24 00:40 Dextrose 40% Gel 15 Gm Tube PO 06/12/25 00:39 PRN PRN Hypoglycemia Magnesium Sulfate 2 gm in 50 mls @ 25 mls/hr 06/12/24 00:34 06/13/24 19:00 Magnesium Sulf 2gm-*Swfi* IV 06/12/25 00:33 Infused DAILY PRN Infusion Magnesium Level < 1.5 Vancomycin HCl 1.25 gm/ 275 mls @ 183.333 mls/hr 06/13/24 06:30 06/14/24 05:30 Dextrose IV 06/13/25 06:29 167 mls/hr Q24H ERNESTINA Administration Piperacillin Sod/Tazobactam Sod 4.5 gm in 100 mls @ 25 mls/hr 06/12/24 14:00 06/14/24 05:19 Zosyn IV 25 mls/hr Q8H ERNESTINA Administration Sodium Chloride 500 mls @ 0 mls/hr 06/12/24 13:00 06/14/24 09:39 0.9% Sodium Chloride 500 Ml IV 06/12/25 12:59 10 mls/hr .Q0M ERNESTINA Administration Per Protocol Sodium Chloride 100 mls @ 20 mls/hr 06/14/24 07:49 0.9% Sodium Chloride 100 Ml IV 06/15/24 07:48 PROTOCOL PRN BLOOD TRANSFUSION Sodium Chloride 100 mls @ 20 mls/hr 06/14/24 14:06 0.9% Sodium Chloride 100 Ml IV 06/15/24 14:05 PROTOCOL PRN BLOOD TRANSFUSION Insulin Aspart 0 units 06/14/24 18:00 Insulin Aspart 300 Units/3 Ml SUBCUT 06/14/25 17:59 Q6HR ERNESTINA Protocol Melatonin 5 mg 06/13/24 22:00 06/13/24 21:39 Melatonin 5 Mg Tablet PO 06/13/25 21:59 5 mg QHS ERNESTINA Administration Methylprednisolone Sodium Succinate 40 mg 06/13/24 20:00 06/14/24 08:11 Methylprednisolone Sod Succ/Pf 40 Mg/Ml (1ml) Vial IV-PUSH 06/13/25 19:59 40 mg Q12HR ERNESTINA Administration Metoprolol Tartrate 25 mg 06/13/24 09:35 06/14/24 08:10 Metoprolol Tartrate 25 Mg Tablet PO 06/13/25 09:34 25 mg BID ERNESTINA Administration Metoprolol Tartrate 5 mg 06/13/24 15:20 06/14/24 00:00 Metoprolol Tartrate 5 Mg/5 Ml Vial IV-PUSH 06/13/25 15:19 5 mg Q6H PRN Administration Heart Rate- High Miscellaneous Information 1 each 06/13/24 10:29 Consult To Pharmacy [facility] 06/13/25 10:28 .PHACONSULT PRN ZZ.Pharmacy Consult Protocol Miscellaneous Information 1 each 06/14/24 15:15 Consult To Pharmacy [facility] 06/14/25 15:14 .PHACONSULT PRN ZZ.Pharmacy Consult Protocol Ondansetron HCl 4 mg 06/12/24 00:34 06/14/24 09:45 Ondansetron 4 Mg/2 Ml Vial IV-PUSH 06/12/25 00:33 4 mg Q8H PRN Administration Nausea And Vomiting Potassium Chloride 20 meq 06/12/24 00:34 06/13/24 06:43 Potassium Chloride Er 20 Meq Tab.Er.Prt PO 06/12/25 00:33 20 meq DAILY PRN Administration Hypokalemia Potassium Chloride 40 meq 06/12/24 00:34 Potassium Chloride Er 20 Meq Tab.Er.Prt PO 06/12/25 00:33 DAILY PRN Hypokalemia Potassium Chloride 40 meq 06/15/24 07:00 Potassium Chloride Er 20 Meq Tab.Er.Prt PO STAT PRN Hypokalemia Sodium Chloride 0 ml 06/13/24 10:29 Sodium Chloride 0.9 % 10 Ml Syringe IV-PUSH 06/13/25 10:28 PRN PRN Flush Sodium Chloride 0 ml 06/14/24 15:15 Sodium Chloride 0.9 % 10 Ml Syringe IV-PUSH 06/14/25 15:14 PRN PRN Flush Spironolactone 25 mg 06/15/24 09:00 Spironolactone 25 Mg Tablet PO 06/15/25 08:59 DAILY ERNESTINA Timolol Maleate 1 drops 06/12/24 09:00 06/14/24 08:11 Timolol Mal 0.5% Op Soln 100 Drops/5 Ml Bottle EYE-BOTH 06/12/25 08:59 1 drops DAILY ERNESTINA Administration Vancomycin HCl 1 each 06/12/24 05:02 Vancomycin - Pharmacy Dosing 1 Each Miscell IV ONCE PRN ZZ.Pharmacy Consult Protocol A&P - Hospitalist Assessment/Plan (1) COVID-19: Plan Documented By: Jaron Hicks MD 06/14/24 1553 Signed By: 06/15/24 0130 [facility]02-04-2025 Progress note Author Frandy Cabrera [facility] Note Date/Time June 14, 2024 4 :32pm [facility] [address] [place] [address] Cardiology Progress Note Signed Patient: Lyric Juarez MR#: [id number] : 1945 Acct:[id number] Age/Sex: 78 / F Adm Date: 5 Loc: Room: [address] [place] [address] Type: ADM IN Attending Dr: Jaron Hicks MD Copies to: ~ Date of Service: 06/14/2024 Subjective Principal diagnosis: Congestive heart failure/non-ST elevation myocardial infarction Interval history: Ms. Juarez is a 78 year old female with PMH significant for Permanent Afib on Coumadin, follows with Dr Cabrera, HTN, HLD, DM II, CKD who presented to [place] [facility] for 1 day history of weakness. She denied chest pain, dyspnea, palpitations, light headedness or syncope. She was found to have low grade feverand was in Afib with RVR. She tested positive for COVID and other labs were significant for hyponatremia of 123, serum creatinine of 1.4, lactate of 2.3, troponin 544--[id number]--[id number]. EKG showed atrial fibrillation with slow VR and a new left bundle branch block. 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 Overnight she had brief episode of syncope and weakness and she was found to be hypotensive with ablood pressure of 60/43. She received 2 L normal saline without improvement andwas transferred to the ICU and started on Levophed. This a.m. she is awake and alert, she denies any chest pain, dyspnea or palpitations. She remains on Levophed at 12 with a MAP of 73. Chest x-ray completed today shows cardiomegaly with left lobe airspace disease and a small left pleural effusion. Echo completed today shows LVEF of 35-40% with wall motion abnormalities suggestive of Takotsubo cardiomyopathy. RVSP 40-50 mmHg. Normal RV size with moderately reduced function. Cardiology follow-up 06/13/2024: Patient is resting comfortably in the ICU. She denies any dyspnea or chest pain. Her blood pressure is now elevated and heart rate exceeded 100 bpm atrial fibrillation. INR is 3.4. She is on heparin drip as well. The patient's renal function is stable except for having low sodium 124 mmol/L. Magnesium 1.6 mg/dL and supplements have been provided. Echocardiogram suggest evidence of severe left ventricular systolic dysfunction with akinesis of the anteroseptal and apical segment. This could be stress cardiomyopathy, however, underlying severe CAD cannot be excluded and therefore coronary angiography is going to be necessary. Since her INR is supratherapeutic the cardiac catheterization has been postponed till tomorrow. Will reverse the Coumadin defect with fresh frozen plasma tomorrow and proceed with cardiac catheterization. The patient is in agreement with the plan. In the meantime we will need to have more aggressive treatment of hypertension and heart rate and because of this metoprolol be resumed and will add spironolactone. Will avoid WADE inhibitors, ARB or ARNI due to hyponatremia. Discussed the case with the patient and with Dr. Chanel Cardiology follow-up 06/14/2024: Patient is getting worse, her work of breathing is getting harder and cannot carry on a conversation with tachypnea. Chest x-ray demonstrated worsening compared to her initial film with more blunting of the costophrenic angles. Poor respiratory effort was noted. Her sodium is downto 223 mmol/L. Her transaminase is 10 times more what it was yesterday, creatinine is rising. Her sodium excretion is diminished. She is becoming moreanxious and remains tachycardic with atrial fibrillation. Despite receiving 2 units of FFP and 5 mg of oral vitamin K her INR has dropped to 2.6 only. Cardiac catheterization therefore could not be carried out. I discussed the case at length with the patient's son and another lady who I believe his and discussed the case at length with Dr. Chanel. Our recommendations were tointubate the patient and sedate her while mechanically ventilated allowing for things to settle down so that we can do cardiac catheterization comfortably and safely tomorrow morning after reversing Coumadin. They agreed and allowed us toproceed with this plan. More FFP will be provided this evening hoping that INR will be less than 2 tomorrow. The cardiac catheterization is tentatively scheduled for 8:00 tomorrow morning. Exam Physical Exam Vital Signs: Temp Pulse Resp BP Pulse Ox O2 Del Method O2 Flow Rate 97.3 F L 104 H 28 H 120/89 96 Nasal Cannula 3 06/14/24 13:00 06/14/24 15:00 06/14/24 15:00 06/14/24 15:00 06/14/24 15:00 06/14/24 15:00 06/14/24 15:00 Const General: in distress, anxious and ill appearing Nutritional Appearance: overweight Orientation: alert, awake and oriented x3 HEENT Head: normal to inspection, normocephalic and atraumatic Ears: hearing grossly normal bilaterally Nose: external nose normal Face and sinus: normal facial exam Eyes Conjunctivae: conjunctivae normal Neck Neck: trachea midline Neck mass: No Thyroid: thyroid normal Carotids: normal carotid upstroke Resp Effort & Inspection: decreased respiratory effort, grunting, labored, tachypneicand uses accessory muscles Auscultation: crackles and diminished lung sounds Cardio Jugular venous pressure: no JVD Palpation: normal PMI Rate: tachycardic Rhythm: abnormal rhythm irregularly irregular Heart Sounds: S1 normal and S2 normal GI Palpation: soft and no hepatosplenomegaly Auscultation: normal bowel sounds Extrem General: no clubbing, cyanosis or edema Objective Labs 06/14/24 04:40 06/14/24 04:40 Labs: Laboratory Results - last 24 hr 06/13/24 06/13/24 06/13/24 09:57 17:52 21:37 Corrected WBC Uncorrected WBC Count RBC Hgb Hct MCV MCH MCHC RDW Plt Count MPV Neut % (Auto) Lymph % (Auto) [place] % (Auto) Eos % (Auto) Baso % (Auto) Nucleat RBC Rel Count Neut # (Auto) Lymph # (Auto) [place] # (Auto) Eos # (Auto) Baso # (Auto) PT INR APTT PHA Creatinine Clear Sodium Potassium Chloride Carbon Dioxide Anion Gap BUN Creatinine Est GFR (CKD-EPI) Glucose POC Glucose 207 197 Calcium Total Bilirubin AST ALT Alkaline Phosphatase Total Protein Albumin Globulin Albumin/Globulin Ratio Urine Eosinophils Ur Random Creatinine Ur Sodium mmol/L Vancomycin Peak Blood Type O Positive Antibody Screen Negative 06/14/24 06/14/24 06/14/24 04:40 08:09 09:32 Corrected WBC 7.3 Uncorrected WBC Count 7.3 RBC 4.03 Hgb 12.5 Hct 35.8 MCV 88.9 MCH 30.9 MCHC 34.8 RDW 13.9 Plt Count 268 MPV 8.4 Neut % (Auto) 86.4 Lymph % (Auto) 6.4 [place] % (Auto) 7.0 Eos % (Auto) 0.0 Baso % (Auto) 0.2 Nucleat RBC Rel Count 0.1 Neut # (Auto) 6.3 Lymph # (Auto) 0.5 L [place] # (Auto) 0.5 Eos # (Auto) 0.0 Baso # (Auto) 0.0 PT 55.8 H INR 5.1 H* APTT 39.5 H PHA Creatinine Clear 38.50 Sodium 123 L* Potassium 3.3 L Chloride 89 L Carbon Dioxide 24.0 Anion Gap 13.3 BUN 27 H Creatinine 1.26 H Est GFR (CKD-EPI) 43.698 Glucose 216 H POC Glucose 253 Calcium 8.2 L Total Bilirubin 0.9 AST 1460 H ALT 1329 H Alkaline Phosphatase 145 H Total Protein 6.1 L Albumin 3.8 Globulin 2.3 Albumin/Globulin Ratio 1.7 Urine Eosinophils 0 Ur Random Creatinine 68.00 Ur Sodium mmol/L 45.0 Vancomycin Peak Blood Type Antibody Screen 06/14/24 06/14/24 12:05 12:10 Corrected WBC Uncorrected WBC Count RBC Hgb Hct MCV MCH MCHC RDW Plt Count MPV Neut % (Auto) Lymph % (Auto) [place] % (Auto) Eos % (Auto) Baso % (Auto) Nucleat RBC Rel Count Neut # (Auto) Lymph # (Auto) [place] # (Auto) Eos # (Auto) Baso # (Auto) PT 28.5 H D INR 2.6 APTT PHA Creatinine Clear Sodium Potassium Chloride Carbon Dioxide Anion Gap BUN Creatinine Est GFR (CKD-EPI) Glucose POC Glucose 218 Calcium Total Bilirubin AST ALT Alkaline Phosphatase Total Protein Albumin Globulin Albumin/Globulin Ratio Urine Eosinophils Ur Random Creatinine Ur Sodium mmol/L Vancomycin Peak 25.0 Blood Type Antibody Screen A&P - Cardiology (1) Hypokalemia: Assessment/Problem Details: Potassium level still low at 3.3 mmol/L Plan: Potassium supplements Code(s): E87.6 - Hypokalemia (2) Hypomagnesemia: Plan: Magnesium supplements Code(s): E83.42 - Hypomagnesemia (3) Elevated troponin: Assessment/Problem Details: Could be due to Takotsubo cardiomyopathy versus genuine significant CAD Plan: Cardiac catheterization tomorrow if INR is in the safe range Code(s): R79.89 - Other specified abnormal findings of blood chemistry (4) Hyponatremia: Assessment/Problem Details: This is worsening Plan: Avoid WADE inhibitors/ARB's/ARNI Code(s): E87.1 - Hypo-osmolality and hyponatremia (5) COVID-19: Assessment/Problem Details: No evidence of pneumonia on chest x-ray Plan: Continue present treatment Code(s): U07.1 - COVID-19 (6) Essential (primary) hypertension: Assessment/Problem Details: Presently her blood pressure is getting under control Plan: Beta-blockers and Aldactone Code(s): I10 - Essential (primary) hypertension (7) Type 2 diabetes mellitus with hyperglycemia: Qualifiers: Diabetes mellitus assisted insulin use: without cra officer use Qualified Code(s): E11.65 - Type 2 diabetes mellitus with hyperglycemia Plan: To be managed by the hospitalist Code(s): E11.65 - Type 2 diabetes mellitus with hyperglycemia (8) Permanent atrial fibrillation: Assessment/Problem Details: Heart rate is above target just over 100 bpm Plan: Continue metoprolol to tartrate for heart rate control, no anticoagulation sinceinvasive workup is planned Code(s): I48.21 - Permanent atrial fibrillation (9) Left ventricular systolic dysfunction: Assessment/Problem Details: Ejection fraction is down to 25?30% with severe regional wall motion abnormalities involving the anterior descending artery territory Plan: Due to hyponatremia will avoid WADE inhibitor, ARB and ARNI, beta-blockers and spironolactone, further plans to follow cardiac catheterization Code(s): I51.89 - Other ill-defined heart diseases (10) Non-ST elevation (NSTEMI) myocardial infarction: Assessment/Problem Details: Could be genuine CAD versus stress cardiomyopathy Plan: Cardiac catheterization tomorrow, if INR is in the safe range Code(s): I21.4 - Non-ST elevation (NSTEMI) myocardial infarction (11) Dyslipidemia: Plan: High intensity statin Code(s): E78.5 - Hyperlipidemia, unspecified (12) Respiratory failure: Plan: Intubation and mechanical ventilation Code(s): J96.90 - Respiratory failure, unspecified, unspecified whether with hypoxia or hypercapnia (13) Liver failure: Plan: Treat heart failure Code(s): K72.90 - Hepatic failure, unspecified without coma (14) Multisystem organ failure: Plan: Focus on providing circulatory support, cardiac catheterization is the beginningstep with intervention to follow if necessary Plan Assessment: Septic shock New LV dysfunction EF 35-40%-possible Takotsubo cardiomyopathy. NYHA I symptoms. Euvolemic on exam Elevated troponin 544--3123--[id number]. Possible type II AZ from COVID myocarditis vs Takotsubo cardiomyopathy. Cannot rule out type I [place]. Lactic acidosis Hyponatremia Transaminitis in the setting of shock Permanent A-fib on Coumadin. Currently in slow VR. Hypertension Hyperlipidemia Diabetes type 2 CKD Echo completed today shows LVEF of 35-40% with wall motion abnormalities suggestive of Takotsubo cardiomyopathy. RVSP 40-50 mmHg. Normal RV size with moderately reduced function. Recommendations: - Start heparin gtt for possible ACS. Pt will need ischemic evaluation to r/o CAD once stable from a sepsis standpoint. - Wean Levophed for MAP greater than 65 - Start ASA & Statin. GDMT when BP is stable off pressors. Avoid BB if remains in slow VR. Monitor telemetry for arrhythmias. - Will obtain Mixed venous gas to calculate assumed Enrique cardiac output. Transduce CVP to guide fluid status and management -Given persistent lactic acidosis and increasing pressor requirements, recommendadditional 1 L fluid bolus with close monitoring of sodium and respiratory status. - Sepsis management per ICU team. -Will follow Documented By: Frandy Cabrera MD, [facility] 5 1622 Signed By: <Electronically signed by [facility] Frandy Cabrera> 06/14/24 1632 [facility] Work Phone: 1(224) 703-948702-04-2025 Progress note Author Reilly Chanel [facility] Note Date/Time June 14, 2024 4 :14pm [facility] [address] [place] [address] Pulmonology Progress Note Signed Patient: Lyric Juarez MR#: [id number] : 1945 Acct:[id number] Age/Sex: 78 / F Adm Date: 5 Loc: Room: [address] [place] [address] Type: ADM IN Attending Dr: Jaron Hicks MD Copies to: ~ Date of Service: 06/14/2024 Subjective Subjective Narrative: Patient expresses some concerns for dyspnea when laying supine. There were no other reported issues per nursing staff though note minimal urine output with diuresis. Exam Physical Exam Vital Signs: Temp Pulse Resp BP Pulse Ox O2 Del Method O2 Flow Rate 97.9 F 116 H 24 120/69 98 Nasal Cannula 3 06/14/24 04:00 06/14/24 08:00 06/14/24 08:00 06/14/24 08:00 06/14/24 08:00 06/14/24 08:00 06/14/24 08:00 Const General: cooperative Nutritional Appearance: average body habitus Orientation: alert and awake HEENT Head: normal to inspection Ears: hearing grossly normal bilaterally and external ears normal Nose: external nose normal Face and sinus: normal facial exam Eyes Sclera: sclerae normal Neck Neck: normal visual inspection (right internal jugular central venous catheter with dressing intact) Resp Effort & Inspection: normal respiratory effort Auscultation: clear to auscultation bilaterally, diminished lung sounds, no rales, no rhonchi and wheezes expiratory wheezes (bilateral) Cardio Rate: tachycardic Rhythm: abnormal rhythm irregularly irregular Heart Sounds: S1 normal, S2 normal and no murmurs GI Inspection: normal to inspection Palpation: soft and nontender General: deferred Skin General: no rashes or lesions noted (Warm and dry) Extrem General: no pedal edema Objective Intake and Output I&O - Last 24 Hours: Intake & Output 06/13/24 06/14/24 06/14/24 23:59 07:59 15:59 Intake Total 975 / 2305 150 / 150 Output Total 300 / 2150 Balance 675 / 155 150 / 150 Weight 80.2 kg Labs 06/14/24 04:40 06/14/24 04:40 Microbiology Micro: Microbiology 3 06/12/24 05:56 Blood Culture - Preliminary Blood - Right Hand No Growth 2 Days 06/12/24 06:05 Blood Culture - Preliminary Blood - Left Hand No Growth 2 Days Assessment/Plan Assessment/Plan (1) Sepsis: (2) Atrial fibrillation: (3) COVID-19: (4) Acute kidney injury: (5) Bradycardia: (6) Elevated troponin: (7) Hyponatremia: Plan Hospital day #3, right internal jugular central venous catheter day #1 for patient admitted for hypotension, atrial fibrillation with RVR with subsequent junctional bradycardia with possible Takatsubo's cardiomyopathy on echocardiogram (EF about 35%) with incidental finding of COVID positive status. Patient is no longer hypotensive. * Note oral phytonadione given per cardiology for increasing INR; given elevated transaminase, suspect decrease in hepatic synthetic function * Will give additional dose of diuretic at time of FFP administration with decreased urine output with worsening renal function, will send urine electrolytes to determine if patient is prerenal and renal ultrasound as well (note prior urine sodium was 18 suggesting likely prerenal azotemia * Case was discussed with cardiology and they do not feel they can perform catheterization as patient cannot lay supine. Case was discussed with family and patient as well as cardiology and we will proceed with intubation and optimization of volume status and hemodynamics in preparation for catheterization tomorrow. * Proceed with intubation and transduction of central venous pressure to optimize volume status and will continue Mucomyst for preservation of renal function in preparation for contrast-induced nephropathy Documented By: Reilly Chanel MD 5 0535 Signed By: <Electronically signed by MD Reilly Chanel> 06/14/[address] [place] [address] Work Phone: 1(813) 507-790002-04-2025 [place] [address] Pulmonology Procedure Note Signed Patient: Lyric Juarez MR#: [id number] : 1945 Acct:[id number] Age/Sex: 78 / F Adm Date: 5 Loc: Room: [address] [place] [address] Type: ADM IN Attending Dr: Jaron Hicks MD Copies to: MD Felipe Sutton MD Marwan Wassouf, MD~ Pulmonary Procedures DATE OF PROCEDURE: 06/14/24 INDICATION: Dyspnea; Cardiogenic Shock POST-OP DIAGNOSIS: Dyspnea; Cardiogenic Shock CONSENT: other (discussed with patient and family; elective intubation for catheterization; consentgiven) TIME OUT PERFORMED: Yes ECDIS N NAVIGATION OPERATOR: Reilly Chanel MD INTUBATION SEDATION: etomidate (20 mg IV x 1), propofol (20 mg IV x1) and versed (2 mg IV x1) PREOXYGENATED: 100% O2 by bag mask ventilation LARYNGOSCOPE: Srikanth (size 4) GRADE OF CORDS: 1 ET TUBE SIZE: 8 TUBE SECURED DEPTH: 24 TUBE SECURED LOCATION: lips TUBE PLACEMENT CONFIRMATION: visualized tube passing through cords, equal breathsounds bilaterally,no breath sounds over epigastrium and confirmation by capnometry PATIENT TOLERATED PROCEDURE: well and no complications INTUBATION COMPLICATIONS: none Documented By: Reilly Chanel MD 5 [id number] Signed By: 06/14/24 170 [facility]02-04-2025 [place] [address] Cardiology Progress Note Signed Patient: Lyric Juarez MR#: [id number] : 1945 Acct:[id number] Age/Sex: 78 / F Adm Date: Loc: Room: [address] [place] [address] Type: ADM IN Attending Dr: Jaron Hicks MD Copies to: ~ Date of Service: 06/14/2024 Subjective Principal diagnosis: Congestive heart failure/non-ST elevation myocardial infarction Interval history: Ms. Juarez is a 78 year old female with PMH significant for Permanent Afib on Coumadin, follows with Dr Cabrera, HTN, HLD, DM II, CKD who presented to [place] ER for 1 day history of weakness. She denied chest pain, dyspnea, palpitations, light headedness or syncope. She was found to have low grade feverand was in Afib with RVR. She tested positive for COVID and other labs were significant for hyponatremia of 123, serum creatinine of 1.4, lactate of 2.3, troponin [id number]. EKG showed atrial fibrillation with slow VR and a new left bundle branch block. 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 Overnight she had brief episode of syncope and weakness and she was found to be hypotensive with ablood pressure of 60/43. She received 2 L normal saline without improvement andwas transferred to the ICU and started on Levophed. This a.m. she is awake and alert, she denies any chest pain, dyspnea or palpitations. She remains on Levophed at 12 with a MAP of 73. Chest x-ray completed today shows cardiomegaly with left lobe airspace disease and a small left pleural effusion. Echo completed today shows LVEF of 35-40% with wall motion abnormalities suggestive of Takotsubo cardiomyopathy. RVSP 40-50 mmHg. Normal RV size with moderately reduced function. Cardiology follow-up 06/13/2024: Patient is resting comfortably in the ICU. She denies any dyspnea orchest pain. Her blood pressure is now elevated and heart rate exceeded 100 bpm atrial fibrillation.INR is 3.4. She is on heparin drip as well. The patient's renal function is stable except for having low sodium 124 mmol/L. Magnesium 1.6 mg/dL and supplements have been provided. Echocardiogram suggest evidence of severe left ventricular systolic dysfunction with akinesis of the anteroseptal and apical segment. This could be stress cardiomyopathy, however, underlying severe CAD cannot be excluded and therefore coronary angiography is going to be necessary. Since her INR is supratherapeutic the cardiac catheterization has been postponed till tomorrow. Will reverse the Coumadin defect with fresh frozen plasma tomorrow and proceed with cardiac catheterization. The patient is in agreement withthe plan. In the meantime we will need to have more aggressive treatment of hypertension and heart rate and because of this metoprolol be resumed and will add spironolactone. Will avoid WADE inhibitors, ARB or ARNI due to hyponatremia. Discussed the case with the patient and with Dr. Chanel Cardiology follow-up 06/14/2024: Patient is getting worse, her work of breathing is getting harder and cannot carry on a conversation with tachypnea. Chest x-ray demonstrated worsening compared to her initial film with more blunting of the costophrenic angles. Poor respiratory effort was noted. Her sodium is downto 223 mmol/L. Her transaminase is 10 times more what it was yesterday, creatinine is rising. Her sodium excretion is diminished. She is becoming moreanxious and remains tachycardic with atrial fibrillation. Despite receiving 2 units of FFP and 5 mg of oral vitamin K her INR has droppedto 2.6 only. Cardiac catheterization therefore could not be carried out. I discussed the case at [facility] with the patient's son and another lady who I believe his and discussed the case at lengthwith Dr. Chanel. Our recommendations were tointubate the patient and sedate her while mechanically ventilated allowing for things to settle down so that we can do cardiac catheterization comfortably and safely tomorrow morning after reversing Coumadin. They agreed and allowed us toproceed with this plan. More FFP will be provided this evening hoping that INR will be less than 2 tomorrow. The cardiac catheterization is tentatively scheduled for 8:00 tomorrow morning. Exam Physical Exam Vital Signs: Temp Pulse Resp BP Pulse Ox O2 Del Method O2 Flow Rate 97.3 F L 104 H 28 H 120/89 96 Nasal Cannula 3 06/14/24 13:00 06/14/24 15:00 06/14/24 15:00 06/14/24 15:00 06/14/24 15:00 06/14/24 15:00 06/14/24 15:00 Const General: in distress, anxious and ill appearing Nutritional Appearance: overweight Orientation: alert, awake and oriented x3 HEENT Head: normal to inspection, normocephalic and atraumatic Ears: hearing grossly normal bilaterally Nose: external nose normal Face and sinus: normal facial exam Eyes Conjunctivae: conjunctivae normal Neck Neck: trachea midline Neck mass: No Thyroid: thyroid normal Carotids: normal carotid upstroke Resp Effort & Inspection: decreased respiratory effort, grunting, labored, tachypneicand uses accessory muscles Auscultation: crackles and diminished lung sounds Cardio Jugular venous pressure: no JVD Palpation: normal PMI Rate: tachycardic Rhythm: abnormal rhythm irregularly irregular Heart Sounds: S1 normal and S2 normal GI Palpation: soft and no hepatosplenomegaly Auscultation: normal bowel sounds Extrem General: no clubbing, cyanosis or edema Objective Labs 06/14/24 04:40 06/14/24 04:40 Labs: Laboratory Results - last 24 hr 06/13/24 06/13/24 06/13/24 09:57 17:52 21:37 Corrected WBC Uncorrected WBC Count RBC Hgb Hct MCV MCH MCHC RDW Plt Count MPV Neut % (Auto) Lymph % (Auto) [place] % (Auto) Eos % (Auto) Baso % (Auto) Nucleat RBC Rel Count Neut # (Auto) Lymph # (Auto) [place] # (Auto) Eos # (Auto) Baso # (Auto) PT INR APTT PHA Creatinine Clear Sodium Potassium Chloride Carbon Dioxide Anion Gap BUN Creatinine Est GFR (CKD-EPI) Glucose POC Glucose 207 197 Calcium Total Bilirubin AST ALT Alkaline Phosphatase Total Protein Albumin Globulin Albumin/Globulin Ratio Urine Eosinophils Ur Random Creatinine Ur Sodium mmol/L Vancomycin Peak Blood Type O Positive Antibody Screen Negative 06/14/24 06/14/24 06/14/24 04:40 08:09 09:32 Corrected WBC 7.3 Uncorrected WBC Count 7.3 RBC 4.03 Hgb 12.5 Hct 35.8 MCV 88.9 MCH 30.9 MCHC 34.8 RDW 13.9 Plt Count 268 MPV 8.4 Neut % (Auto) 86.4 Lymph % (Auto) 6.4 [place] % (Auto) 7.0 Eos % (Auto) 0.0 Baso % (Auto) 0.2 Nucleat RBC Rel Count 0.1 Neut # (Auto) 6.3 Lymph # (Auto) 0.5 L [place] # (Auto) 0.5 Eos # (Auto) 0.0 Baso # (Auto) 0.0 PT 55.8 H INR 5.1 H* APTT 39.5 H PHA Creatinine Clear 38.50 Sodium 123 L* Potassium 3.3 L Chloride 89 L Carbon Dioxide 24.0 Anion Gap 13.3 BUN 27 H Creatinine 1.26 H Est GFR (CKD-EPI) 43.698 Glucose 216 H POC Glucose 253 Calcium 8.2 L Total Bilirubin 0.9 AST 1460 H ALT 1329 H Alkaline Phosphatase 145 H Total Protein 6.1 L Albumin 3.8 Globulin 2.3 Albumin/Globulin Ratio 1.7 Urine Eosinophils 0 Ur Random Creatinine 68.00 Ur Sodium mmol/L 45.0 Vancomycin Peak Blood Type Antibody Screen 06/14/24 06/14/24 12:05 12:10 Corrected WBC Uncorrected WBC Count RBC Hgb Hct MCV MCH MCHC RDW Plt Count MPV Neut % (Auto) Lymph % (Auto) [place] % (Auto) Eos % (Auto) Baso % (Auto) Nucleat RBC Rel Count Neut # (Auto) Lymph # (Auto) [place] # (Auto) Eos # (Auto) Baso # (Auto) PT 28.5 H D INR 2.6 APTT PHA Creatinine Clear Sodium Potassium Chloride Carbon Dioxide Anion Gap BUN Creatinine Est GFR (CKD-EPI) Glucose POC Glucose 218 Calcium Total Bilirubin AST ALT Alkaline Phosphatase Total Protein Albumin Globulin Albumin/Globulin Ratio Urine Eosinophils Ur Random Creatinine Ur Sodium mmol/L Vancomycin Peak 25.0 Blood Type Antibody Screen A&P - Cardiology (1) Hypokalemia: Assessment/Problem Details: Potassium level still low at 3.3 mmol/L Plan: Potassium supplements Code(s): E87.6 - Hypokalemia (2) Hypomagnesemia: Plan: Magnesium supplements Code(s): E83.42 - Hypomagnesemia (3) Elevated troponin: Assessment/Problem Details: Could be due to Takotsubo cardiomyopathy versus genuine significant CAD Plan: Cardiac catheterization tomorrow if INR is in the safe range Code(s): R79.89 - Other specified abnormal findings of blood chemistry (4) Hyponatremia: Assessment/Problem Details: This is worsening Plan: Avoid WADE inhibitors/ARB's/ARNI Code(s): E87.1 - Hypo-osmolality and hyponatremia (5) COVID-19: Assessment/Problem Details: No evidence of pneumonia on chest x-ray Plan: Continue present treatment Code(s): U07.1 - COVID-19 (6) Essential (primary) hypertension: Assessment/Problem Details: Presently her blood pressure is getting under control Plan: Beta-blockers and Aldactone Code(s): I10 - Essential (primary) hypertension (7) Type 2 diabetes mellitus with hyperglycemia: Qualifiers: Diabetes mellitus cra officer insulin use: without cra officer use Qualified Code(s): E11.65 - Type 2 diabetes mellitus with hyperglycemia Plan: To be managed by the hospitalist Code(s): E11.65 - Type 2 diabetes mellitus with hyperglycemia (8) Permanent atrial fibrillation: Assessment/Problem Details: Heart rate is above target just over 100 bpm Plan: Continue metoprolol to tartrate for heart rate control, no anticoagulation sinceinvasive workup is planned Code(s): I48.21 - Permanent atrial fibrillation (9) Left ventricular systolic dysfunction: Assessment/Problem Details: Ejection fraction is down to 25?30% with severe regional wall motion abnormalities involving the anterior descending artery territory Plan: Due to hyponatremia will avoid WADE inhibitor, ARB and ARNI, beta-blockers and spironolactone, further plans to follow cardiac catheterization Code(s): I51.89 - Other ill-defined heart diseases (10) Non-ST elevation (NSTEMI) myocardial infarction: Assessment/Problem Details: Could be genuine CAD versus stress cardiomyopathy Plan: Cardiac catheterization tomorrow, if INR is in the safe range Code(s): I21.4 - Non-ST elevation (NSTEMI) myocardial infarction (11) Dyslipidemia: Plan: High intensity statin Code(s): E78.5 - Hyperlipidemia, unspecified (12) Respiratory failure: Plan: Intubation and mechanical ventilation Code(s): J96.90 - Respiratory failure, unspecified, unspecified whether with hypoxia or hypercapnia (13) Liver failure: Plan: Treat heart failure Code(s): K72.90 - Hepatic failure, unspecified without coma (14) Multisystem organ failure: Plan: Focus on providing circulatory support, cardiac catheterization is the beginningstep with intervention to follow if necessary Plan Assessment: Septic shock New LV dysfunction EF 35-40%-possible Takotsubo cardiomyopathy. NYHA I symptoms. Euvolemic on exam Elevated troponin 544--[id number]. Possible type II AZ from COVID myocarditis vs Takotsubo cardiomyopathy. Cannot rule out type I AZ. Lactic acidosis Hyponatremia Transaminitis in the setting of shock Permanent A-fib on Coumadin. Currently in slow VR. Hypertension Hyperlipidemia Diabetes type 2 CKD Echo completed today shows LVEF of 35-40% with wall motion abnormalities suggestive of Takotsubo cardiomyopathy. RVSP 40-50 mmHg. Normal RV size with moderately reduced function. Recommendations: - Start heparin gtt for possible ACS. Pt will need ischemic evaluation to r/o CAD once stable from a sepsis standpoint. - Wean Levophed for MAP greater than 65 - Start ASA & Statin. GDMT when BP is stable off pressors. Avoid BB if remains in slow VR. Monitor telemetry for arrhythmias. - Will obtain Mixed venous gas to calculate assumed Enrique cardiac output. Transduce CVP to guide fluid status and management -Given persistent lactic acidosis and increasing pressor requirements, recommendadditional 1 L fluid bolus with close monitoring of sodium and respiratory status. - Sepsis management per ICU team. -Will follow Documented By: Frandy Cabrera MD, FACC 5 [id number] Signed By: 06/14/24 1632 [facility]02-04-[address] [address] Pulmonology Progress Note Signed Patient: Lyric Juarez MR#: [id number] : 1945 Acct:[id number] Age/Sex: 78 / F Adm Date: 5 Loc: Room: [address] [place] [address] Type: ADM IN Attending Dr: Jaron Hicks MD Copies to: ~ Date of Service: 06/14/2024 Subjective Subjective Narrative: Patient expresses some concerns for dyspnea when laying supine. There were no other reported issuesper nursing staff though note minimal urine output with diuresis. Exam Physical Exam Vital Signs: Temp Pulse Resp BP Pulse Ox O2 Del Method O2 Flow Rate 97.9 F 116 H 24 120/69 98 Nasal Cannula 3 06/14/24 04:00 06/14/24 08:00 06/14/24 08:00 06/14/24 08:00 06/14/24 08:00 06/14/24 08:00 06/14/24 08:00 Const General: cooperative Nutritional Appearance: average body habitus Orientation: alert and awake HEENT Head: normal to inspection Ears: hearing grossly normal bilaterally and external ears normal Nose: external nose normal Face and sinus: normal facial exam Eyes Sclera: sclerae normal Neck Neck: normal visual inspection (right internal jugular central venous catheter with dressing intact) Resp Effort & Inspection: normal respiratory effort Auscultation: clear to auscultation bilaterally, diminished lung sounds, no rales, no rhonchi and wheezes expiratory wheezes (bilateral) Cardio Rate: tachycardic Rhythm: abnormal rhythm irregularly irregular Heart Sounds: S1 normal, S2 normal and no murmurs GI Inspection: normal to inspection Palpation: soft and nontender General: deferred Skin General: no rashes or lesions noted (Warm and dry) Extrem General: no pedal edema Objective Intake and Output I&O - Last 24 Hours: Intake & Output 06/13/24 06/14/24 06/14/24 23:59 07:59 15:59 Intake Total 975 / 2305 150 / 150 Output Total 300 / 2150 Balance 675 / 155 150 / 150 Weight 80.2 kg Labs 06/14/24 04:40 06/14/24 04:40 Microbiology Micro: Microbiology 3 06/12/24 05:56 Blood Culture - Preliminary Blood - Right Hand No Growth 2 Days 06/12/24 06:05 Blood Culture - Preliminary Blood - Left Hand No Growth 2 Days Assessment/Plan Assessment/Plan (1) Sepsis: (2) Atrial fibrillation: (3) COVID-19: (4) Acute kidney injury: (5) Bradycardia: (6) Elevated troponin: (7) Hyponatremia: Plan Hospital day #3, right internal jugular central venous catheter day #1 for patient admitted for hypotension, atrial fibrillation with RVR with subsequent junctional bradycardia with possible Takatsubo's cardiomyopathy on echocardiogram (EF about 35%) with incidental finding of COVID positive status. Patient is no longer hypotensive. * Note oral phytonadione given per cardiology for increasing INR; given elevated transaminase, suspect decrease in hepatic synthetic function * Will give additional dose of diuretic at time of FFP administration with decreased urine output with worsening renal function, will send urine electrolytes to determine if patient is prerenal and renal ultrasound as well (note prior urine sodium was 18 suggesting likely prerenal azotemia * Case was discussed with cardiology and they do not feel they can perform catheterization as patient cannot lay supine. Case was discussed with family and patient as well as cardiology and we will proceed with intubation and optimization of volume status and hemodynamics in preparation for catheter ization tomorrow. * Proceed with intubation and transduction of central venous pressure to optimize volume status andwill continue Mucomyst for preservation of renal function in preparation for contrast-induced nephropathy Documented By: Reilly Chanel MD 5 0835 Signed By: 06/14/[address] [place], [place] 5465802-04-2025 Radiology Diagnostic study note [facility] [place] [address] [place] [address] Ultrasound Report Signed Patient: Lyric Juarez MR#: [id number] : 1945 Acct:[id number] Age/Sex: 78 / F ADM Date: 5 Loc: Room: [address] [place] [address] Type: ADM IN Attending Dr: Jaron Hicks MD Ordering Provider: Reilly Chanel MD Date of Service: 06/14/24 US/US renal BI: acute kidney injury Copies to: MD Jaron Sutton MD~ BILATERAL RENAL AND BLADDER ULTRASOUND CLINICAL HISTORY: Acute kidney injury. COMPARISON: None FINDINGS: Estimation of renal size is approximately 9.62 cm on the right and 10.25 cm on the left. No contourdeforming mass, shadowing stone or hydronephrosis. Small cyst left kidney. The urinary bladder is partially distended with a volume of 956.32 ml. No shadowing stone or focal lesion. US/US renal BI IMPRESSION: No acute findings. Impression dictated by: Stevie Hernandez Jr., D.OJosr06/14/2024 3:15 PM Dictation Location: [place] [address] Tech: Milka Shelton Transcribed By: JC 06/14/241514 Dictated By: Stevie Hernandez Jr, DO 06/14/241514 Signed By: 06/14/24 151 [facility]02-04-2025 Consult note Author Elvis Philip [facility] Note Date/Time June 14, 2024 1 0:51am [facility] [address] [place] [address] Nephrology Consult Note Signed Patient: Lyric Juarez MR#: [id number] : 1945 Acct:[id number] Age/Sex: 78 / F Adm Date: 5 Loc: Room: [address] [place] [address] Type: ADM IN Attending Dr: Jaron Hicks MD Copies to: MD Felipe Wick MD Marwan Wassouf, MD~ Providers Consult Date: 06/14/24 Requesting Provider: Jaron Hicks MD Primary Care Provider: Felipe Johnson MD HPI Reason for Consult: Hyponatremia and CARMEN risk stratification and prophylaxis History of Present Illness: This is a 78-year-old female with medical history of atrial fibrillation, HTN, DM, CKD, HLD was presented to the [facility] after a fall. On evaluationin emergency room she was found to have a fever with tachycardia. Her EKG showed A- fib with RVR and was given normal saline fluid boluses to improve her heart rate. She was transferred to the [facility] for sepsis management. Patient after arrival at [facility] was found to have a hypotension with a fall. She was given a normal saline bolus but due to the persistent hypotension she was moved to the intensive care unit and was started on Levophed. She was also given broad-spectrum antibioticsfor sepsis. Patient was also found to have a non-ST elevated AZ and cardiology was consulted. She had echocardiogram which showed EF 35 to 40% moderate pulmonary hypertension and dilated IVC. Cardiology also recommended a cardiac catheterization. Patient was also found to have a hyponatremia with serum sodium 123 to 124 mmol/L. She was given Bumex to improve her respiratory status. Nephrology is consulted for her hyponatremia management and CARMEN and risk stratification and prophylaxis. Review of Systems Review of Systems All other systems reviewed & are negative unless noted below or in HPI Review of systems: Cardiovascular: denies any chest pain, palpitation Pulmonary: denies any cough, hemoptysis Gastrointestinal: denies any nausea, vomiting, diarrhea Neurological :denies any headache, numbness, weakness Endocrine: denies any polyuria, polydipsia Dermatological: denies any itching or rash [facility] Medical History Type 2 diabetes mellitus with hyperglycemia Paroxysmal atrial fibrillation (09/20/15) Other specified anxiety disorders (02/05/18) Hyperlipidemia, unspecified (09/20/15) History of falling Essential (primary) hypertension Erythrasma (11/09/17) Surgical History History of cholecystectomy Family History Father Mother Social History Smoking Status: Never smoker Substance Use Type: None Meds Medications & Allergies Allergies flecainide Allergy (Unknown, Verified 05/17/24 08:07) Hives Home Medications chlorthalidone 25 mg tablet 25 mg PO DAILY 04/19/24 [History Confirmed 06/11/24] diltiazem HCl 300 mg capsule,extended release 24 hr 300 mg PO DAILY 04/19/24 [History Confirmed 06/11/24] lancets 30 gauge (OneTouch Delica Plus Lancet) #100 ea 04/19/24 [History Confirmed 05/17/24] lisinopril 10 mg tablet 10 mg PO DAILY 04/19/24 [History Confirmed 06/11/24] potassium chloride 20 mEq tablet,extended release(part/cryst) (Klor-Con M) 20 meq PO DAILY 04/19/24 [History Confirmed 06/11/24] pravastatin 40 mg tablet 40 mg PO QHS 04/19/24 [History Confirmed 06/11/24] warfarin 2.5 mg tablet 2.5 mg PO DAILY 04/19/24 [History Confirmed 06/11/24] cholecalciferol (vitamin D3) 25 mcg (1,000 unit) capsule 25 mcg PO DAILY 04/20/24 [History Confirmed 06/11/24] metformin 500 mg tablet,extended release 24 hr 500 mg PO DAILY #30 tabs 05/17/24[Rx Confirmed 06/11/24] blood sugar diagnostic ([employer] Verio test strips) #100 strips 06/01/24 [Rx] dorzolamide-timolol (PF) 2 %-0.5 % eye drops in a dropperette 1 drp Eye-Both DAILY 06/11/24 [History Confirmed 06/11/24] Active Medications: Active Medications Acetaminophen (Acetaminophen 325 Mg Tablet) 650 mg PO Q6HR PRN PRN Reason: Pain Scale 1 - 3 or fever Stop: 06/12/25 00:33 Acetylcysteine (Acetylcysteine 20% 30 Ml 200 Mg/Ml Vial) 600 mg PO BID [facility] Stop: 06/14/24 21:01 Last Admin: 06/14/24 08:12 Dose: 600 mg Albuterol/Ipratropium (Ipratropium/Albuterol 0.5-3 Mg 3 Ml Ampul.Neb) 3 ml INHALATION Q6H PRN PRN Reason: SOB OR WHEEZING Stop: 06/12/25 18:14 Last Admin: 06/13/24 08:53 Dose: 3 ml Aspirin (Aspirin 81 Mg Tab.Chew) 81 mg PO DAILY [facility] Stop: 06/12/25 09:59 Last Admin: 06/14/24 08:10 Dose: Not Given Benzonatate (Benzonatate 100 Mg Capsule) 200 mg PO TID PRN PRN Reason: Cough Stop: 06/12/25 18:16 Last Admin: 06/13/24 17:54 Dose: 200 mg Bumetanide (Bumetanide 1 Mg/4 Ml Vial) 1 mg IV-PUSH ONCE ONE Stop: 06/14/24 10:01 Clopidogrel Bisulfate (Clopidogrel Bisulfate 75 Mg Tablet) 75 mg PO DAILY [facility] Stop: 06/14/25 08:59 Last Admin: 06/14/24 08:11 Dose: Not Given Dextrose (Dextrose 50% In Water 25 Gm/50 Ml Syringe) 0 gm IV-PUSH PRN PRN PRN Reason: Hypoglycemia Stop: 06/12/25 00:39 Dorzolamide HCl (Dorzolamide 2% Op Soln 200 Drops/10 Ml Bottle) 1 drops EYE-BOTH DAILY [facility] Stop: 06/12/25 08:59 Last Admin: 06/14/24 08:11 Dose: 1 drops Glucose (Dextrose 40% Gel 15 Gm Tube) 0 gm PO PRN PRN PRN Reason: Hypoglycemia Stop: 06/12/25 00:39 Magnesium Sulfate (Magnesium Sulf 2gm-*Swfi*) 2 gm in 50 mls @ 25 mls/hr IV DAILY PRN PRN Reason: Magnesium Level < 1.5 Stop: 06/12/25 00:33 Last Infusion: 06/13/24 19:00 Dose: Infused Vancomycin HCl 1.25 gm/ (Dextrose) 275 mls @ 183.333 mls/hr IV Q24H [facility] Stop: 06/13/25 06:29 Last Admin: 06/14/24 05:30 Dose: 167 mls/hr Piperacillin Sod/Tazobactam Sod (Zosyn) 4.5 gm in 100 mls @ 25 mls/hr IV Q8H [facility] Last Admin: 06/14/24 05:19 Dose: 25 mls/hr Sodium Chloride (0.9% Sodium Chloride 500 Ml) 500 mls @ 0 mls/hr IV .Q0M [facility] Stop: 06/12/25 12:59 Last Admin: 06/13/24 10:53 Dose: 10 mls/hr Sodium Chloride (0.9% Sodium Chloride 100 Ml) 100 mls @ 20 mls/hr IV PROTOCOL PRN PRN Reason: BLOOD TRANSFUSION Stop: 06/15/24 07:48 Insulin Aspart (Insulin Aspart 300 Units/3 Ml) 0 units SUBCUT TID.[facility]; Protocol Stop: 06/12/25 07:59 Last Admin: 06/14/24 08:10 Dose: 2 units Melatonin (Melatonin 5 Mg Tablet) 5 mg PO QHS [facility] Stop: 06/13/25 21:59 Last Admin: 06/13/24 21:39 Dose: 5 mg Methylprednisolone Sodium Succinate (Methylprednisolone Sod Succ/Pf 40 Mg/Ml (1ml) Vial) 40 mg IV-PUSH Q12HR [facility] Stop: 06/13/25 19:59 Last Admin: 06/14/24 08:11 Dose: 40 mg Metoprolol Tartrate (Metoprolol Tartrate 25 Mg Tablet) 25 mg PO BID [facility] Stop: 06/13/25 09:34 Last Admin: 06/14/24 08:10 Dose: 25 mg Metoprolol Tartrate (Metoprolol Tartrate 5 Mg/5 Ml Vial) 5 mg IV-PUSH Q6H PRN PRN Reason: Heart Rate- High Stop: 06/13/25 15:19 Last Admin: 06/14/24 00:00 Dose: 5 mg Miscellaneous Information (Consult To Pharmacy) 1 each MISCELLANE .PHACONSULT PRN; Protocol PRN Reason: ZZ.Pharmacy Consult Stop: 06/13/25 10:28 Ondansetron HCl (Ondansetron 4 Mg/2 Ml Vial) 4 mg IV-PUSH Q8H PRN PRN Reason: Nausea And Vomiting Stop: 06/12/25 00:33 Last Admin: 06/14/24 00:23 Dose: 4 mg Potassium Chloride (Potassium Chloride Er 20 Meq Tab.Er.Prt) 20 meq PO DAILY PRN PRN Reason: Hypokalemia Stop: 06/12/25 00:33 Last Admin: 06/13/24 06:43 Dose: 20 meq Potassium Chloride (Potassium Chloride Er 20 Meq Tab.Er.Prt) 40 meq PO DAILY PRN PRN Reason: Hypokalemia Stop: 06/12/25 00:33 Sodium Chloride (Sodium Chloride 0.9 % 10 Ml Syringe) 0 ml IV-PUSH PRN PRN PRN Reason: Flush Stop: 06/13/25 10:28 Spironolactone (Spironolactone 25 Mg Tablet) 25 mg PO DAILY [facility] Stop: 06/15/25 08:59 Timolol Maleate (Timolol Mal 0.5% Op Soln 100 Drops/5 Ml Bottle) 1 drops EYE- BOTH DAILY [facility] Stop: 06/12/25 08:59 Last Admin: 06/14/24 08:11 Dose: 1 drops Vancomycin HCl (Vancomycin - Pharmacy Dosing 1 Each Miscell) 1 each IV ONCE PRN; Protocol PRN Reason: ZZ.Pharmacy Consult Exam Physical Exam Vital Signs: Temp Pulse Resp BP Pulse Ox O2 Del Method O2 Flow Rate 97.9 F 116 H 24 120/69 98 Nasal Cannula 3 06/14/24 04:00 06/14/24 08:00 06/14/24 08:00 06/14/24 08:00 06/14/24 08:00 06/14/24 08:00 06/14/24 08:00 Narrative: General: Appears comfortable and not in distress Heart: S1-S2, no rub Lung: Bilateral air entry, no wheezing or crackles Abdomen: Soft, positive bowel sounds Extremities: Trace edema, no cyanosis Head: Atraumatic, normocephalic Ear: No gross hearing Deficit or external ear redness Eyes: No pallor or redness Neck: Trachea is midline or no visible mass Skin: No rashes , warm to touch ANTISQUEAK FILLER: Awake,Alert, following simple command Musculoskeletal: No swelling or limitation of movement of the large joints Psychiatric: Cooperative, normal mood and affect Results - Nephrology Labs 06/14/24 04:40 06/14/24 04:40 Labs: 06/14/24 04:40 BUN 27 H Creatinine 1.26 H Albumin 3.8 Radiology Impressions Impressions - last 24 hours: Any impression(s) listed above is documentation that was entered by the reading physician into a diagnostic report(s) for Lyric Juarez. I have reviewed the report(s) and am incorporating any findings in the treatment plan of this patient where applicable. A&P - Nephrology Assessment/Plan (1) Hyponatremia: Assessment/Problem Details: She appears to have a hyponatremia due to the combination of hypervolemia and SIADH. (2) Sepsis: Assessment/Problem Details: Patient present with a sepsis initially required vasopressors. She is off the vasopressors and currently on broad-spectrum antibiotic. (3) CKD stage 3a, GFR 45-59 ml/min: Assessment/Problem Details: She has a CKD due to the DM and HTN with baseline serum creatinine around 1.1 mg/dL. Her renal function initially was worse due to the hypotension but improved with optimization of her hemodynamics. (4) Non-ST elevation (NSTEMI) myocardial infarction: Assessment/Problem Details: Patient also diagnosed to have a AZ. Cardiology has been following the patient plan to do a cardiac catheterization. (5) COVID-19: Assessment/Problem Details: Patient has COVID-19 infection. She is currently on steroids. Pulmonary has been following the patient. (6) Atrial fibrillation: Assessment/Problem Details: Patient has atrial fibrillation. Currently on metoprolol. (7) Warfarin-induced coagulopathy: Assessment/Problem Details: She has a supratherapeutic INR due to the Coumadin. She was given FFP and vitamin K. Plan * Agreed to give a Bumex to optimize her respiratory status for cardiac cath. Patient will not be able to tolerate IV fluid for CARMEN prophylaxis due to her respiratory status. Will also avoid aggressive diuresis for next 24 hours. * No need for 3% saline for now. If her serum sodium continues to drop then will start 3% saline or give oral tolvaptan. * Continue IV antibiotics and adjust as needed based on culture sensitivity. Pharmacy to dose medication based on EGFR. * Continue management of COVID-19 infection and sporty failure as per pulmonary. * Continue management of CAD and A-fib as per cardiology. * Check renal function daily and monitor serum sodium closely * Monitor input output Daily and daily weight. * Thanks for consult. Will continue follow-up with you. Please proceed [place] in question. Documented By: Elvis Philip MD 06/14/24 0849 Signed By: <Electronically signed by Elvis Philip MD> 06/14/24 1051 [facility] Work Phone: [phone]) 632-130102-04-2025 [place] [address] Nephrology Consult Note Signed Patient: Lyric Juarez MR#: [id number] : 1945 Acct:[id number] Age/Sex: 78 / F Adm Date: 5 Loc: Room: [address] [place] [address] Type: ADM IN Attending Dr: Jaron Hicks MD Copies to: MD Felipe Wick MD Marwan Wassouf, MD~ Providers Consult Date: 06/14/24 Requesting Provider: Jaron Hicks MD Primary Care Provider: Felipe Johnson MD [facility] Reason for Consult: Hyponatremia and CARMEN risk stratification and prophylaxis History of Present Illness: This is a 78-year-old female with medical history of atrial fibrillation, HTN, DM, CKD, HLD was presented to the [facility] after a fall. On evaluationin emergency room she was found to have afever with tachycardia. Her EKG showed A-fib with RVR and was given normal saline fluid boluses to improve her heart rate. She was transferred to the [facility] for sepsis management. Patient after arrival at [facility] was found to have a hypotension with a fall. She was given a normal saline bolus but due to the persistent hypotension she was moved to the intensive care unit and was started on Levophed. She was also given broad-spectrum antibioticsfor sepsis. Patient was also found to have a non-ST elevated AZ and cardiology was consulted. She had echocardiogram which showed EF 35 to 40% moderate pulmonary hypertension and dilated IVC. Cardiology also recommended a cardiac catheterization. Patient was also found to have a hyponatremia with serum sodium 123 to 124 mmol/L. She was given Bumex to improve her respiratory status. Nephrology is consulted for her hyponatremia management and CARMEN and risk stratification and prophylaxis. Review of Systems Review of Systems All other systems reviewed & are negative unless noted below or in HPI Review of systems: Cardiovascular: denies any chest pain, palpitation Pulmonary: denies any cough, hemoptysis Gastrointestinal: denies any nausea, vomiting, diarrhea Neurological :denies any headache, numbness, weakness Endocrine: denies any polyuria, polydipsia Dermatological: denies any itching or rash PMF Medical History Type 2 diabetes mellitus with hyperglycemia Paroxysmal atrial fibrillation (09/20/15) Other specified anxiety disorders (02/05/18) Hyperlipidemia, unspecified (09/20/15) History of falling Essential (primary) hypertension Erythrasma (11/09/17) Surgical History History of cholecystectomy Family History Father Mother Social History Smoking Status: Never smoker Substance Use Type: None Meds Medications & Allergies Allergies flecainide Allergy (Unknown, Verified 05/17/24 08:07) Hives Home Medications chlorthalidone 25 mg tablet 25 mg PO DAILY 04/19/24 [History Confirmed 06/11/24] diltiazem HCl 300 mg capsule,extended release 24 hr 300 mg PO DAILY 04/19/24 [History Confirmed 06/11/24] lancets 30 gauge (PayByGroupTouch Delica Plus Lancet) #100 ea 04/19/24 [History Confirmed 05/17/24] lisinopril 10 mg tablet 10 mg PO DAILY 04/19/24 [History Confirmed 06/11/24] potassium chloride 20 mEq tablet,extended release(part/cryst) (Klor-Con M) 20 meq PO DAILY 04/19/24[History Confirmed 06/11/24] pravastatin 40 mg tablet 40 mg PO QHS 04/19/24 [History Confirmed 06/11/24] warfarin 2.5 mg tablet 2.5 mg PO DAILY 04/19/24 [History Confirmed 06/11/24] cholecalciferol (vitamin D3) 25 mcg (1,000 unit) capsule 25 mcg PO DAILY 04/20/24 [History Confirmed 06/11/24] metformin 500 mg tablet,extended release 24 hr 500 mg PO DAILY #30 tabs 05/17/24[Rx Confirmed 06/11/24] blood sugar diagnostic (PayByGroupTouch Verio test strips) #100 strips 06/01/24 [Rx] dorzolamide-timolol (PF) 2 %-0.5 % eye drops in a dropperette 1 drp Eye-Both DAILY 06/11/24 [History Confirmed 06/11/24] Active Medications: Active Medications Acetaminophen (Acetaminophen 325 Mg Tablet) 650 mg PO Q6HR PRN PRN Reason: Pain Scale 1 - 3 or fever Stop: 06/12/25 00:33 Acetylcysteine (Acetylcysteine 20% 30 Ml 200 Mg/Ml Vial) 600 mg PO BID [facility] Stop: 06/14/24 21:01 Last Admin: 06/14/24 08:12 Dose: 600 mg Albuterol/Ipratropium (Ipratropium/Albuterol 0.5-3 Mg 3 Ml Ampul.Neb) 3 ml INHALATION Q6H PRN PRN Reason: SOB OR WHEEZING Stop: 06/12/25 18:14 Last Admin: 06/13/24 08:53 Dose: 3 ml Aspirin (Aspirin 81 Mg Tab.Chew) 81 mg PO DAILY [facility] Stop: 06/12/25 09:59 Last Admin: 06/14/24 08:10 Dose: Not Given Benzonatate (Benzonatate 100 Mg Capsule) 200 mg PO TID PRN PRN Reason: Cough Stop: 06/12/25 18:16 Last Admin: 06/13/24 17:54 Dose: 200 mg Bumetanide (Bumetanide 1 Mg/4 Ml Vial) 1 mg IV-PUSH ONCE ONE Stop: 06/14/24 10:01 Clopidogrel Bisulfate (Clopidogrel Bisulfate 75 Mg Tablet) 75 mg PO DAILY [facility] Stop: 06/14/25 08:59 Last Admin: 06/14/24 08:11 Dose: Not Given Dextrose (Dextrose 50% In Water 25 Gm/50 Ml Syringe) 0 gm IV-PUSH PRN PRN PRN Reason: Hypoglycemia Stop: 06/12/25 00:39 Dorzolamide HCl (Dorzolamide 2% Op Soln 200 Drops/10 Ml Bottle) 1 drops EYE-BOTH DAILY [facility] Stop: 06/12/25 08:59 Last Admin: 06/14/24 08:11 Dose: 1 drops Glucose (Dextrose 40% Gel 15 Gm Tube) 0 gm PO PRN PRN PRN Reason: Hypoglycemia Stop: 06/12/25 00:39 Magnesium Sulfate (Magnesium Sulf 2gm-*Swfi*) 2 gm in 50 mls @ 25 mls/hr IV DAILY PRN PRN Reason: Magnesium Level < 1.5 Stop: 06/12/25 00:33 Last Infusion: 06/13/24 19:00 Dose: Infused Vancomycin HCl 1.25 gm/ (Dextrose) 275 mls @ 183.333 mls/hr IV Q24H [facility] Stop: 06/13/25 06:29 Last Admin: 06/14/24 05:30 Dose: 167 mls/hr Piperacillin Sod/Tazobactam Sod (Zosyn) 4.5 gm in 100 mls @ 25 mls/hr IV Q8H [facility] Last Admin: 06/14/24 05:19 Dose: 25 mls/hr Sodium Chloride (0.9% Sodium Chloride 500 Ml) 500 mls @ 0 mls/hr IV .Q0M [facility] Stop: 06/12/25 12:59 Last Admin: 06/13/24 10:53 Dose: 10 mls/hr Sodium Chloride (0.9% Sodium Chloride 100 Ml) 100 mls @ 20 mls/hr IV PROTOCOL PRN PRN Reason: BLOOD TRANSFUSION Stop: 06/15/24 07:48 Insulin Aspart (Insulin Aspart 300 Units/3 Ml) 0 units SUBCUT TID.WM.HS [facility]; Protocol Stop: 06/12/25 07:59 Last Admin: 06/14/24 08:10 Dose: 2 units Melatonin (Melatonin 5 Mg Tablet) 5 mg PO QHS [facility] Stop: 06/13/25 21:59 Last Admin: 06/13/24 21:39 Dose: 5 mg Methylprednisolone Sodium Succinate (Methylprednisolone Sod Succ/Pf 40 Mg/Ml (1ml) Vial) 40 mg IV-PUSH Q12HR [facility] Stop: 06/13/25 19:59 Last Admin: 06/14/24 08:11 Dose: 40 mg Metoprolol Tartrate (Metoprolol Tartrate 25 Mg Tablet) 25 mg PO BID [facility] Stop: 06/13/25 09:34 Last Admin: 06/14/24 08:10 Dose: 25 mg Metoprolol Tartrate (Metoprolol Tartrate 5 Mg/5 Ml Vial) 5 mg IV-PUSH Q6H PRN PRN Reason: Heart Rate- High Stop: 06/13/25 15:19 Last Admin: 06/14/24 00:00 Dose: 5 mg Miscellaneous Information (Consult To Pharmacy) 1 each MISCELLANE .PHACONSULT PRN; Protocol PRN Reason: ZZ.Pharmacy Consult Stop: 06/13/25 10:28 Ondansetron HCl (Ondansetron 4 Mg/2 Ml Vial) 4 mg IV-PUSH Q8H PRN PRN Reason: Nausea And Vomiting Stop: 06/12/25 00:33 Last Admin: 06/14/24 00:23 Dose: 4 mg Potassium Chloride (Potassium Chloride Er 20 Meq Tab.Er.Prt) 20 meq PO DAILY PRN PRN Reason: Hypokalemia Stop: 06/12/25 00:33 Last Admin: 06/13/24 06:43 Dose: 20 meq Potassium Chloride (Potassium Chloride Er 20 Meq Tab.Er.Prt) 40 meq PO DAILY PRN PRN Reason: Hypokalemia Stop: 06/12/25 00:33 Sodium Chloride (Sodium Chloride 0.9 % 10 Ml Syringe) 0 ml IV-PUSH PRN PRN PRN Reason: Flush Stop: 06/13/25 10:28 Spironolactone (Spironolactone 25 Mg Tablet) 25 mg PO DAILY [facility] Stop: 06/15/25 08:59 Timolol Maleate (Timolol Mal 0.5% Op Soln 100 Drops/5 Ml Bottle) 1 drops EYE- BOTH DAILY [facility] Stop: 06/12/25 08:59 Last Admin: 06/14/24 08:11 Dose: 1 drops Vancomycin HCl (Vancomycin - Pharmacy Dosing 1 Each Miscell) 1 each IV ONCE PRN; Protocol PRN Reason: ZZ.Pharmacy Consult Exam Physical Exam Vital Signs: Temp Pulse Resp BP Pulse Ox O2 Del Method O2 Flow Rate 97.9 F 116 H 24 120/69 98 Nasal Cannula 3 06/14/24 04:00 06/14/24 08:00 06/14/24 08:00 06/14/24 08:00 06/14/24 08:00 06/14/24 08:00 06/14/24 08:00 Narrative: General: Appears comfortable and not in distress Heart: S1-S2, no rub Lung: Bilateral air entry, no wheezing or crackles Abdomen: Soft, positive bowel sounds Extremities: Trace edema, no cyanosis Head: Atraumatic, normocephalic Ear: No gross hearing Deficit or external ear redness Eyes: No pallor or redness Neck: Trachea is midline or no visible mass Skin: No rashes , warm to touch ANTISQUEAK FILLER: Awake,Alert, following simple command Musculoskeletal: No swelling or limitation of movement of the large joints Psychiatric: Cooperative, normal mood and affect Results - Nephrology Labs 06/14/24 04:40 06/14/24 04:40 Labs: 06/14/24 04:40 BUN 27 H Creatinine 1.26 H Albumin 3.8 Radiology Impressions Impressions - last 24 hours: Any impression(s) listed above is documentation that was entered by the reading physician into a diagnostic report(s) for Lyric A Angel. I have reviewed the report(s) and am incorporating any findings in the treatment plan of this patient where applicable. A&P - Nephrology Assessment/Plan (1) Hyponatremia: Assessment/Problem Details: She appears to have a hyponatremia due to the combination of hypervolemia and SIADH. (2) Sepsis: Assessment/Problem Details: Patient present with a sepsis initially required vasopressors. She is off the vasopressors and currently on broad-spectrum antibiotic. (3) CKD stage 3a, GFR 45-59 ml/min: Assessment/Problem Details: She has a CKD due to the DM and HTN with baseline serum creatinine around 1.1 mg/dL. Her renal function initially was worse due to the hypotension but improved with optimization of her hemodynamics. (4) Non-ST elevation (NSTEMI) myocardial infarction: Assessment/Problem Details: Patient also diagnosed to have a AZ. Cardiology has been following the patient plan to do a cardiaccatheterization. (5) COVID-19: Assessment/Problem Details: Patient has COVID-19 infection. She is currently on steroids. Pulmonary has been following the patient. (6) Atrial fibrillation: Assessment/Problem Details: Patient has atrial fibrillation. Currently on metoprolol. (7) Warfarin-induced coagulopathy: Assessment/Problem Details: She has a supratherapeutic INR due to the Coumadin. She was given FFP and vitamin K. Plan * Agreed to give a Bumex to optimize her respiratory status for cardiac cath. Patient will not be able to tolerate IV fluid for CARMEN prophylaxis due to her respiratory status. Will also avoid aggressive diuresis for next 24 hours. * No need for 3% saline for now. If her serum sodium continues to drop then will start 3% saline orgive oral tolvaptan. * Continue IV antibiotics and adjust as needed based on culture sensitivity. Pharmacy to dose medication based on EGFR. * Continue management of COVID-19 infection and sporty failure as per pulmonary. * Continue management of CAD and A-fib as per cardiology. * Check renal function daily and monitor serum sodium closely * Monitor input output Daily and daily weight. * Thanks for consult. Will continue follow-up with you. Please proceed [place] in question. Documented By: Elvis Philip MD 06/14/24 0849 Signed By: 06/14/24 1051 [facility]02-04-2025 Progress note Author Jaron Hicks [facility] Note Date/Time June 14, 2024 2 :21am [facility] [address] [place] [address] Hospitalist Progress Note Signed Patient: Lyric Juarez MR#: [id number] : 1945 Acct:[id number] Age/Sex: 78 / F Adm Date: 5 Loc: Room: [address] [place] [address] Type: ADM IN Attending Dr: Jaron Hicks MD Copies to: ~ Date of Service: 06/13/2024 Subjective Subjective Narrative: Assessment And Plan 78F with history of atrial fibrillation, HTN, DM2, CKD3, and dyslipidemia who presented to [place] ED after a fall and was transferred for possible UTI /sepsis Rule out Septic shock - resolved lactic acidosis - resolved the patient is afebrile there is no significant leukocytosis She was started on zosyn/vancomycin empirically. She required norepinephrine drip despite appropriate IV fluids blood culture 2/2 negative so far Follow Cx at [place] Pulmonary was consulted, recommendation appreciated. Lactic acidosis could be related to metformin use her shock could be more cardiogenic Hypoxia Covid19 infection ABG shows no hypercapnia Covid Ag positive at [facility] CXR shows left lower lobe airspace disease and small left pleural effusion. Add IV steroids due to wheezing Not eligible to Remdesivir due to worsening LFTs Breathing Tx as needed Pulmonary on consult Afib RVR - resolved She Presented with A-fib with rapid ventricular rate. Currently slow rate Hyponatremia Na remains low 124 asymptomatic not improving. Urine Osmolality 583, Urine Na 18 BMP in am Not eligible for IVF due to low EF Favor consulting nephrology KARIS Cr 1.4 on admission down to 1.1 Rule out NSTEMI Troponin is > 10K Echo shoes EF 40% . Takotsubo Syndrome, Mild AR , RVSP 40-50mmHg Started on heparin gtt for possible ACS ASA Cardiology was consulted, recommendation appreciated. Elevated LFTs AST/ALT elevated . TB wnl Hold on statin Likely due to shock CMP in am Hypomagnesemia Mg 1.1 on admission Replaced as needed DM blood sugars were reviewed sliding scale insulin and accuchecks. hold oral antidiabetic medication/metformin. LINTERVAL HPI: As Above, Pt resting in bed. Denies any chest pain. still having cough and require O2 Chronic diseases: Unless mentioned Above, Essential home medications have been continued. DVT Px: Addressed Disposition: To be determined Plan of care Discussed with: the medical team, the patient L Exam Physical Exam Vital Signs: Temp Pulse Resp BP Pulse Ox O2 Del Method O2 Flow Rate 36.7 C 112 H 33 H 152/96 H 94 L Nasal Cannula 3 06/13/24 16:00 06/13/24 18:00 06/13/24 18:06/13/24 18:06/13/24 18:00 06/13/24 18:00 06/13/24 18:00 Narrative: GEN: NAD, Cooperative LUNGS: scattered wheezing . tachypneic respiratory effort CV: nl S1 S2; no M/R/G, ? carotid bruits ABD: Soft, ND, NT, + BS, EXT: No peripheral edema, No calf muscle tenderness NEURO: ? FND. PSYCH: nl affect, AOx3 Objective Lab Results 06/13/24 05:12 06/13/24 05:12 Microbiology Results Microbiology 06/12/24 05:56 Blood - Right Hand Blood Culture - Preliminary No Growth 1 Day 06/12/24 06:05 Blood - Left Hand Blood Culture - Preliminary No Growth 1 Day Meds Allergies and Active Meds Allergies flecainide Allergy (Unknown, Verified 05/17/24 08:07) Hives Active Meds: Active Medications Generic Name Dose Route Start Last Admin Trade Name Freq PRN Reason Stop Dose Admin Acetaminophen 650 mg 06/12/24 00:34 Acetaminophen 325 Mg Tablet PO 06/12/25 00:33 Q6HR PRN Pain Scale 1 - 3 or fever Acetylcysteine 600 mg 06/13/24 16:30 06/13/24 17:55 Acetylcysteine 20% 30 Ml 200 Mg/Ml Vial PO 06/14/24 21:01 600 mg BID [facility] Administration Albuterol/Ipratropium 3 ml 06/12/24 18:03 06/13/24 08:53 Ipratropium/Albuterol 0.5-3 Mg 3 Ml Ampul.Neb INHALATION 06/12/25 18:14 3 ml Q6H PRN Administration SOB OR WHEEZING Aspirin 81 mg 06/12/24 10:00 06/13/24 08:18 Aspirin 81 Mg Tab.Chew PO 06/12/25 09:59 81 mg DAILY [facility] Administration Benzonatate 200 mg 06/12/24 18:17 06/13/24 17:54 Benzonatate 100 Mg Capsule PO 06/12/25 18:16 200 mg TID PRN Administration Cough Bumetanide 1 mg 06/14/24 10:00 Bumetanide 1 Mg/4 Ml Vial IV-PUSH 06/14/24 10:01 ONCE ONE Clopidogrel Bisulfate 75 mg 06/14/24 09:00 Clopidogrel Bisulfate 75 Mg Tablet PO 06/14/25 08:59 DAILY [facility] Dextrose 0 gm 06/12/24 00:40 Dextrose 50% In Water 25 Gm/50 Ml Syringe IV-PUSH 06/12/25 00:39 PRN PRN Hypoglycemia Dorzolamide HCl 1 drops 06/12/24 09:00 06/13/24 08:19 Dorzolamide 2% Op Soln 200 Drops/10 Ml Bottle EYE-BOTH 06/12/25 08:59 1 drops DAILY [facility] Administration Glucose 0 gm 06/12/24 00:40 Dextrose 40% Gel 15 Gm Tube PO 06/12/25 00:39 PRN PRN Hypoglycemia Magnesium Sulfate 2 gm in 50 mls @ 25 mls/hr 06/12/24 00:34 06/13/24 06:42 Magnesium Sulf 2gm-*Swfi* IV 06/12/25 00:33 25 mls/hr DAILY PRN Administration Magnesium Level < 1.5 Vancomycin HCl 1.25 gm/ 275 mls @ 183.333 mls/hr 06/13/24 06:30 06/13/24 06:43 Dextrose IV 06/13/25 06:29 183.33 mls/hr Q24H [facility] Administration Piperacillin Sod/Tazobactam Sod 4.5 gm in 100 mls @ 25 mls/hr 06/12/24 14:00 06/13/24 14:06 Zosyn IV 25 mls/hr Q8H [facility] Administration Sodium Chloride 500 mls @ 0 mls/hr 06/12/24 13:00 06/13/24 10:53 0.9% Sodium Chloride 500 Ml IV 06/12/25 12:59 10 mls/hr .Q0M [facility] Administration Per Protocol Insulin Aspart 0 units 06/12/24 08:00 06/13/24 17:53 Insulin Aspart 300 Units/3 Ml SUBCUT 06/12/25 07:59 2 units TID.WM.HS [facility] Administration Protocol Methylprednisolone Sodium Succinate 40 mg 06/13/24 20:00 Methylprednisolone Sod Succ/Pf 40 Mg/Ml (1ml) Vial IV-PUSH 06/13/25 19:59 Q12HR [facility] Metoprolol Tartrate 25 mg 06/13/24 09:35 06/13/24 10:52 Metoprolol Tartrate 25 Mg Tablet PO 06/13/25 09:34 25 mg BID [facility] Administration Metoprolol Tartrate 5 mg 06/13/24 15:20 06/13/24 17:54 Metoprolol Tartrate 5 Mg/5 Ml Vial IV-PUSH 06/13/25 15:19 5 mg Q6H PRN Administration Heart Rate- High Miscellaneous Information 1 each 06/13/24 10:29 Consult To Pharmacy MISCELLANE 06/13/25 10:28 .PHACONSULT PRN ZZ.Pharmacy Consult Protocol Ondansetron HCl 4 mg 06/12/24 00:34 06/13/24 13:39 Ondansetron 4 Mg/2 Ml Vial IV-PUSH 06/12/25 00:33 4 mg Q8H PRN Administration Nausea And Vomiting Potassium Chloride 20 meq 06/12/24 00:34 06/13/24 06:43 Potassium Chloride Er 20 Meq Tab.Er.Prt PO 06/12/25 00:33 20 meq DAILY PRN Administration Hypokalemia Potassium Chloride 40 meq 06/12/24 00:34 Potassium Chloride Er 20 Meq Tab.Er.Prt PO 06/12/25 00:33 DAILY PRN Hypokalemia Potassium Chloride 40 meq 06/14/24 07:00 Potassium Chloride Er 20 Meq Tab.Er.Prt PO STAT PRN Hypokalemia Sodium Chloride 0 ml 06/13/24 10:29 Sodium Chloride 0.9 % 10 Ml Syringe IV-PUSH 06/13/25 10:28 PRN PRN Flush Spironolactone 25 mg 06/15/24 09:00 Spironolactone 25 Mg Tablet PO 06/15/25 08:59 DAILY [facility] Timolol Maleate 1 drops 06/12/24 09:00 06/13/24 08:19 Timolol Mal 0.5% Op Soln 100 Drops/5 Ml Bottle EYE-BOTH 06/12/25 08:59 1 drops DAILY [facility] Administration Vancomycin HCl 1 each 06/12/24 05:02 Vancomycin - Pharmacy Dosing 1 Each Miscell IV ONCE PRN ZZ.Pharmacy Consult Protocol A&P - Hospitalist Assessment/Plan (1) COVID-19: Plan Documented By: Jaron Hicks MD 06/13/241917 Signed By: <Electronically signed by Jaron Hicks MD> 06/14/24220 [facility] Work Phone: 1(218) 270-535902-04-2025 [place] [id number] Hospital[place] Progress Note Signed Patient: Lyric Juarez MR#: [id number] : 1945 Acct:[id number] Age/Sex: 78 / F Adm Date: 5 Loc: Room: [address] [place] [address] Type: ADM IN Attending Dr: Jaron Hicks MD Copies to: ~ Date of Service: 06/13/2024 Subjective Subjective Narrative: Assessment And Plan 78F with history of atrial fibrillation, HTN, DM2, CKD3, and dyslipidemia who presented to [facility] after a fall and was transferred for possible UTI /sepsis Rule out Septic shock - resolved lactic acidosis - resolved the patient is afebrile there is no significant leukocytosis She was started on zosyn/vancomycin empirically. She required norepinephrine drip despite appropriate IV fluids blood culture 2/2 negative so far Follow Cx at [place] Pulmonary was consulted, recommendation appreciated. Lactic acidosis could be related to metformin use her shock could be more cardiogenic Hypoxia Covid19 infection ABG shows no hypercapnia Covid Ag positive at [facility] CXR shows left lower lobe airspace disease and small left pleural effusion. Add IV steroids due to wheezing Not eligible to Remdesivir due to worsening LFTs Breathing Tx as needed Pulmonary on consult Afib RVR - resolved She Presented with A-fib with rapid ventricular rate. Currently slow rate Hyponatremia Na remains low 124 asymptomatic not improving. Urine Osmolality 583, Urine Na 18 BMP in am Not eligible for IVF due to low EF Favor consulting nephrology KARIS Cr 1.4 on admission down to 1.1 Rule out NSTEMI Troponin is > 10K Echo shoes EF 40% . Takotsubo Syndrome, Mild AR , RVSP 40-50mmHg Started on heparin gtt for possible ACS ASA Cardiology was consulted, recommendation appreciated. Elevated LFTs AST/ALT elevated . TB wnl Hold on statin Likely due to shock CMP in am Hypomagnesemia Mg 1.1 on admission Replaced as needed DM blood sugars were reviewed sliding scale insulin and accuchecks. hold oral antidiabetic medication/metformin. LINTERVAL HPI: As Above, Pt resting in bed. Denies any chest pain. still having cough and require O2 Chronic diseases: Unless mentioned Above, Essential home medications have been continued. DVT Px: Addressed Disposition: To be determined Plan of care Discussed with: the medical team, the patient L Exam Physical Exam Vital Signs: Temp Pulse Resp BP Pulse Ox O2 Del Method O2 Flow Rate 36.7 C 112 H 33 H 152/96 H 94 L Nasal Cannula 3 06/13/24 16:00 06/13/24 18:00 06/13/24 18:00 06/13/24 18:00 06/13/24 18:00 06/13/24 18:00 06/13/24 18:00 Narrative: GEN: NAD, Cooperative LUNGS: scattered wheezing . tachypneic respiratory effort CV: nl S1 S2; no M/R/G, ? carotid bruits ABD: Soft, ND, NT, + BS, EXT: No peripheral edema, No calf muscle tenderness NEURO: ? FND. PSYCH: nl affect, AOx3 Objective Lab Results 06/13/24 05:12 06/13/24 05:12 Microbiology Results Microbiology 06/12/24 05:56 Blood - Right Hand Blood Culture - Preliminary No Growth 1 Day 06/12/24 06:05 Blood - Left Hand Blood Culture - Preliminary No Growth 1 Day Meds Allergies and Active Meds Allergies flecainide Allergy (Unknown, Verified 05/17/24 08:07) Hives Active Meds: Active Medications Generic Name Dose Route Start Last Admin Trade Name Freq PRN Reason Stop Dose Admin Acetaminophen 650 mg 06/12/24 00:34 Acetaminophen 325 Mg Tablet PO 06/12/25 00:33 Q6HR PRN Pain Scale 1 - 3 or fever Acetylcysteine 600 mg 06/13/24 16:30 06/13/24 17:55 Acetylcysteine 20% 30 Ml 200 Mg/Ml Vial PO 06/14/24 21:01 600 mg BID ERNESTINA Administration Albuterol/Ipratropium 3 ml 06/12/24 18:03 06/13/24 08:53 Ipratropium/Albuterol 0.5-3 Mg 3 Ml Ampul.Neb INHALATION 06/12/25 18:14 3 ml Q6H PRN Administration SOB OR WHEEZING Aspirin 81 mg 06/12/24 10:00 06/13/24 08:18 Aspirin 81 Mg Tab.Chew PO 06/12/25 09:59 81 mg DAILY ERNESTINA Administration Benzonatate 200 mg 06/12/24 18:17 06/13/24 17:54 Benzonatate 100 Mg Capsule PO 06/12/25 18:16 200 mg TID PRN Administration Cough Bumetanide 1 mg 06/14/24 10:00 Bumetanide 1 Mg/4 Ml Vial IV-PUSH 06/14/24 10:01 ONCE ONE Clopidogrel Bisulfate 75 mg 06/14/24 09:00 Clopidogrel Bisulfate 75 Mg Tablet PO 06/14/25 08:59 DAILY ERNESTINA Dextrose 0 gm 06/12/24 00:40 Dextrose 50% In Water 25 Gm/50 Ml Syringe IV-PUSH 06/12/25 00:39 PRN PRN Hypoglycemia Dorzolamide HCl 1 drops 06/12/24 09:00 06/13/24 08:19 Dorzolamide 2% Op Soln 200 Drops/10 Ml Bottle EYE-BOTH 06/12/25 08:59 1 drops DAILY ERNESTINA Administration Glucose 0 gm 06/12/24 00:40 Dextrose 40% Gel 15 Gm Tube PO 06/12/25 00:39 PRN PRN Hypoglycemia Magnesium Sulfate 2 gm in 50 mls @ 25 mls/hr 06/12/24 00:34 06/13/24 06:42 Magnesium Sulf 2gm-*Swfi* IV 06/12/25 00:33 25 mls/hr DAILY PRN Administration Magnesium Level < 1.5 Vancomycin HCl 1.25 gm/ 275 mls @ 183.333 mls/hr 06/13/24 06:30 06/13/24 06:43 Dextrose IV 06/13/25 06:29 183.33 mls/hr Q24H ERNESTINA Administration Piperacillin Sod/Tazobactam Sod 4.5 gm in 100 mls @ 25 mls/hr 06/12/24 14:00 06/13/24 14:06 Zosyn IV 25 mls/hr Q8H ERNESTINA Administration Sodium Chloride 500 mls @ 0 mls/hr 06/12/24 13:00 06/13/24 10:53 0.9% Sodium Chloride 500 Ml IV 06/12/25 12:59 10 mls/hr .Q0M ERNESTINA Administration Per Protocol Insulin Aspart 0 units 06/12/24 08:00 06/13/24 17:53 Insulin Aspart 300 Units/3 Ml SUBCUT 06/12/25 07:59 2 units TID.WM.HS ERNESTINA Administration Protocol Methylprednisolone Sodium Succinate 40 mg 06/13/24 20:00 Methylprednisolone Sod Succ/Pf 40 Mg/Ml (1ml) Vial IV-PUSH 06/13/25 19:59 Q12HR ERNESTINA Metoprolol Tartrate 25 mg 06/13/24 09:35 06/13/24 10:52 Metoprolol Tartrate 25 Mg Tablet PO 06/13/25 09:34 25 mg BID ERNESTINA Administration Metoprolol Tartrate 5 mg 06/13/24 15:20 06/13/24 17:54 Metoprolol Tartrate 5 Mg/5 Ml Vial IV-PUSH 06/13/25 15:19 5 mg Q6H PRN Administration Heart Rate- High Miscellaneous Information 1 each 06/13/24 10:29 Consult To Pharmacy MISCELLANE 06/13/25 10:28 .PHACONSULT PRN ESA.Pharmacy Consult Protocol Ondansetron HCl 4 mg 06/12/24 00:34 06/13/24 13:39 Ondansetron 4 Mg/2 Ml Vial IV-PUSH 06/12/25 00:33 4 mg Q8H PRN Administration Nausea And Vomiting Potassium Chloride 20 meq 06/12/24 00:34 06/13/24 06:43 Potassium Chloride Er 20 Meq Tab.Er.Prt PO 06/12/25 00:33 20 meq DAILY PRN Administration Hypokalemia Potassium Chloride 40 meq 06/12/24 00:34 Potassium Chloride Er 20 Meq Tab.Er.Prt PO 06/12/25 00:33 DAILY PRN Hypokalemia Potassium Chloride 40 meq 06/14/24 07:00 Potassium Chloride Er 20 Meq Tab.Er.Prt PO STAT PRN Hypokalemia Sodium Chloride 0 ml 06/13/24 10:29 Sodium Chloride 0.9 % 10 Ml Syringe IV-PUSH 06/13/25 10:28 PRN PRN Flush Spironolactone 25 mg 06/15/24 09:00 Spironolactone 25 Mg Tablet PO 06/15/25 08:59 DAILY ERNESTINA Timolol Maleate 1 drops 06/12/24 09:00 06/13/24 08:19 Timolol Mal 0.5% Op Soln 100 Drops/5 Ml Bottle EYE-BOTH 06/12/25 08:59 1 drops DAILY ERNESTINA Administration Vancomycin HCl 1 each 06/12/24 05:02 Vancomycin - Pharmacy Dosing 1 Each Miscell IV ONCE PRN ZZ.Pharmacy Consult Protocol A&P - Hospitalist Assessment/Plan (1) COVID-19: Plan Documented By: Jaron Hicks MD 06/13/241917 Signed By: 06/14/24 0221 [facility]02-03-2025 Progress note Author Reilly Chanel [facility] Note Date/Time June 13, 2024 1 2:28pm [facility] [address] [place] [address] Pulmonology Progress Note Signed Patient: Lyric Juarez MR#: [id number] : 1945 Acct:[id number] Age/Sex: 78 / F Adm Date: 5 Loc: Room: [address] [place] [address] Type: ADM IN Attending Dr: Jaron Hicks MD Copies to: ~ Date of Service: 06/13/2024 Subjective Subjective Narrative: Patient feels breathing is stable with audible wheezing noted. She is conversant in full sentences. Exam Physical Exam Vital Signs: Temp Pulse Resp BP Pulse Ox O2 Del Method O2 Flow Rate 97.8 F 111 H 20 138/80 97 Nasal Cannula 3 06/13/24 04:00 06/13/24 08:54 06/13/24 08:54 06/13/24 07:00 06/13/24 08:55 06/13/24 08:55 06/13/24 08:55 Const General: cooperative Nutritional Appearance: average body habitus Orientation: alert and awake HEENT Head: normal to inspection Ears: hearing grossly normal bilaterally and external ears normal Nose: external nose normal Face and sinus: normal facial exam Eyes Sclera: sclerae normal Neck Neck: normal visual inspection (right internal jugular central venous catheter with dressing intact) Resp Effort & Inspection: normal respiratory effort Auscultation: clear to auscultation bilaterally, no rales, no rhonchi and wheezes expiratory wheezes (bilateral) Cardio Rate: tachycardic Rhythm: abnormal rhythm irregularly irregular Heart Sounds: S1 normal, S2 normal and no murmurs GI Inspection: normal to inspection Palpation: soft and nontender General: deferred Skin General: no rashes or lesions noted (Warm and dry) Extrem General: no pedal edema Objective Intake and Output I&O - Last 24 Hours: Intake & Output 06/12/24 06/13/24 06/13/24 23:59 07:59 15:59 Intake Total 200 / 250 200 / 200 Output Total 1850 / 1850 Balance 200 / 250 -1650 / -1650 Weight 81.4 kg Labs 06/13/24 05:12 06/13/24 05:12 Microbiology Micro: Microbiology 3 06/12/24 05:56 Blood Culture - Preliminary Blood - Right Hand No Growth 1 Day 06/12/24 06:05 Blood Culture - Preliminary Blood - Left Hand No Growth 1 Day Assessment/Plan Assessment/Plan (1) Sepsis: (2) Atrial fibrillation: (3) COVID-19: (4) Acute kidney injury: (5) Bradycardia: (6) Elevated troponin: (7) Hyponatremia: Plan Hospital day #2, right internal jugular central venous catheter day #1 for patient admitted for hypotension, atrial fibrillation with RVR with subsequent junctional bradycardia with possible Takatsubo's cardiomyopathy on echocardiogram (EF about 35%) with incidental finding of COVID positive status. Patient is no longer hypotensive. * Blood cultures negative x 1 days and await 2 days of negative cultures urine cultures not sent from [facility] but blood and urine send from [facility] with urine cultures sent out to reference lab and blood cultures negative to date from [facility]; continue vancomycin/zosyn per hospitalist service pending culture results * Suspicion for sepsis less likely given rapid resolution of hypotension (suspect some component of cardiogenic shock) * Case discussed with cardiology; cardiac catheterization for today postponed due to coagulopathy, recommended giving FFP prior to coagulopathy for short term reversal of anticoagulation without giving vitamin K which may make anticoagulation more difficult * Continue supportive care note holding diuresis in preparation for catheterization tomorrow Documented By: Reilly Chanel MD 5 0911 Signed By: <Electronically signed by MD Reilly Chanel> 06/13/24 1228 [facility] Work Phone: [phone] 110-384502-03-2025 Progress note Author Frandy Cabrera [facility] Note Date/Time June 13, 2024 1 1:06am [facility] [address] [place] [address] Cardiology Progress Note Signed Patient: Lyric Juarez MR#: [id number] : 1945 Acct:[id number] Age/Sex: 78 / F Adm Date: 5 Loc: Room: 5A5992-7 Type: ADM IN Attending Dr: Jaron Hicks MD Copies to: ~ Date of Service: 06/13/2024 Subjective Interval history: Ms. Juarez is a 78 year old female with PMH significant for Permanent Afib on Coumadin, follows with Dr Cabrera, HTN, HLD, DM II, CKD who presented to [place] ER for 1 day history of weakness. She denied chest pain, dyspnea, palpitations, light headedness or syncope. She was found to have low grade feverand was in Afib with RVR. She tested positive for COVID and other labs were significant for hyponatremia of 123, serum creatinine of 1.4, lactate of 2.3, troponin [id number]. EKG showed atrial fibrillation with slow VR and a new left bundle branch block. 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 Overnight she had brief episode of syncope and weakness and she was found to be hypotensive with ablood pressure of 60/43. She received 2 L normal saline without improvement andwas transferred to the ICU and started on Levophed. This a.m. she is awake and alert, she denies any chest pain, dyspnea or palpitations. She remains on Levophed at 12 with a MAP of 73. Chest x-ray completed today shows cardiomegaly with left lobe airspace disease and a small left pleural effusion. Echo completed today shows LVEF of 35-40% with wall motion abnormalities suggestive of Takotsubo cardiomyopathy. RVSP 40-50 mmHg. Normal RV size with moderately reduced function. Cardiology follow-up 06/13/2024: Patient is resting comfortably in the ICU. She denies any dyspnea or chest pain. Her blood pressure is now elevated and heart rate exceeded 100 bpm atrial fibrillation. INR is 3.4. She is on heparin drip as well. The patient's renal function is stable except for having low sodium 124 mmol/L. Magnesium 1.6 mg/dL and supplements have been provided. Echocardiogram suggest evidence of severe left ventricular systolic dysfunction with akinesis of the anteroseptal and apical segment. This could be stress cardiomyopathy, however, underlying severe CAD cannot be excluded and therefore coronary angiography is going to be necessary. Since her INR is supratherapeutic the cardiac catheterization has been postponed till tomorrow. Will reverse the Coumadin defect with fresh frozen plasma tomorrow and proceed with cardiac catheterization. The patient is in agreement with the plan. In the meantime we will need to have more aggressive treatment of hypertension and heart rate and because of this metoprolol be resumed and will add spironolactone. Will avoid WADE inhibitors, ARB or ARNI due to hyponatremia. Discussed the case with the patient and with Dr. Chanel Exam Physical Exam Vital Signs: Temp Pulse Resp BP Pulse Ox O2 Del Method O2 Flow Rate 97.8 F 111 H 20 138/80 97 Nasal Cannula 3 06/13/24 04:00 06/13/24 08:54 06/13/24 08:54 06/13/24 07:00 06/13/24 08:55 06/13/24 08:55 06/13/24 08:55 Const General: cooperative, comfortable and no acute distress Nutritional Appearance: overweight Orientation: alert, awake and oriented x3 HEENT Head: normal to inspection, normocephalic and atraumatic Ears: hearing grossly normal bilaterally Nose: external nose normal Face and sinus: normal facial exam Eyes Conjunctivae: conjunctivae normal Neck Neck: trachea midline Neck mass: No Thyroid: thyroid normal Carotids: normal carotid upstroke Resp Effort & Inspection: normal respiratory effort Auscultation: clear to auscultation bilaterally Cardio Jugular venous pressure: no JVD Palpation: normal PMI Rate: tachycardic Rhythm: abnormal rhythm irregularly irregular Heart Sounds: S1 normal and S2 normal GI Palpation: soft and no hepatosplenomegaly Auscultation: normal bowel sounds Extrem General: no clubbing, cyanosis or edema Objective Labs 06/13/24 05:12 06/13/24 05:12 Labs: Laboratory Results - last 24 hr 06/12/24 06/12/24 06/12/24 09:21 11:18 11:54 Corrected WBC Uncorrected WBC Count RBC Hgb Hct MCV MCH MCHC RDW Plt Count MPV Neut % (Auto) Lymph % (Auto) [place] % (Auto) Eos % (Auto) Baso % (Auto) Nucleat RBC Rel Count Neut # (Auto) Lymph # (Auto) [place] # (Auto) Eos # (Auto) Baso # (Auto) PT 21.2 H INR 1.9 Heparin Anti-Xa, Unfract < 0.04 L Sample Site VBG pH VBG pCO2 VBG pO2 VBG HCO3 VBG Total CO2 VBG O2 Saturation VBG O2 Content VBG Base Excess FiO2 Critical Value PHA Creatinine Clear Sodium Potassium Chloride Carbon Dioxide Anion Gap BUN Creatinine Est GFR (CKD-EPI) Glucose POC Whole Bld Glucose POC Glucose 291 POC Glucose Comment Glu2: cleaned meter Osmolality 272 L Lactic Acid 1.9 Calcium Magnesium Urine Osmolality Ur Random Sodium Blood Type 06/12/24 06/12/24 06/12/24 14:10 14:42 17:00 Corrected WBC Uncorrected WBC Count RBC Hgb Hct MCV MCH MCHC RDW Plt Count MPV Neut % (Auto) Lymph % (Auto) [place] % (Auto) Eos % (Auto) Baso % (Auto) Nucleat RBC Rel Count Neut # (Auto) Lymph # (Auto) [place] # (Auto) Eos # (Auto) Baso # (Auto) PT INR Heparin Anti-Xa, Unfract 0.46 Sample Site Venous VBG pH 7.30 L VBG pCO2 39.0 VBG pO2 25.9 L VBG HCO3 18.9 L VBG Total CO2 20.1 L VBG O2 Saturation 39.8 L* VBG O2 Content 3.2 L VBG Base Excess -6.9 L FiO2 21 Critical Value PHA Creatinine Clear Sodium Potassium Chloride Carbon Dioxide Anion Gap BUN Creatinine Est GFR (CKD-EPI) Glucose POC Whole Bld Glucose POC Glucose POC Glucose Comment Osmolality Lactic Acid Calcium Magnesium Urine Osmolality 583 Ur Random Sodium 18 Blood Type 06/12/24 06/12/24 06/12/24 17:09 17:10 21:16 Corrected WBC Uncorrected WBC Count RBC Hgb Hct MCV MCH MCHC RDW Plt Count MPV Neut % (Auto) Lymph % (Auto) [place] % (Auto) Eos % (Auto) Baso % (Auto) Nucleat RBC Rel Count Neut # (Auto) Lymph # (Auto) [place] # (Auto) Eos # (Auto) Baso # (Auto) PT INR Heparin Anti-Xa, Unfract Sample Site Venous VBG pH 7.31 L VBG pCO2 35.7 L VBG pO2 35.4 VBG HCO3 17.4 L VBG Total CO2 18.5 L VBG O2 Saturation 58.3 L* VBG O2 Content 4.8 L VBG Base Excess -8.1 L FiO2 28 Critical Value PHA Creatinine Clear Sodium Potassium Chloride Carbon Dioxide Anion Gap BUN Creatinine Est GFR (CKD-EPI) Glucose POC Whole Bld Glucose 169 H POC Glucose 133 POC Glucose Comment Osmolality Lactic Acid Calcium Magnesium Urine Osmolality Ur Random Sodium Blood Type 06/12/24 06/13/24 06/13/24 23:15 05:12 06:50 Corrected WBC 9.8 Uncorrected WBC Count 9.8 RBC 4.07 Hgb 12.5 Hct 36.5 MCV 89.7 MCH 30.7 MCHC 34.3 RDW 14.3 Plt Count 257 MPV 8.0 Neut % (Auto) 79.4 Lymph % (Auto) 10.1 [place] % (Auto) 9.9 Eos % (Auto) 0.1 Baso % (Auto) 0.5 Nucleat RBC Rel Count 0.1 Neut # (Auto) 7.8 H Lymph # (Auto) 1.0 [place] # (Auto) 1.0 H Eos # (Auto) 0.0 Baso # (Auto) 0.0 PT 37.9 H INR 3.4 Heparin Anti-Xa, Unfract 0.56 0.55 Sample Site VBG pH VBG pCO2 VBG pO2 VBG HCO3 VBG Total CO2 VBG O2 Saturation VBG O2 Content VBG Base Excess FiO2 Critical Value PHA Creatinine Clear 44.44 Sodium 124 L* Potassium 3.4 L Chloride 93 L Carbon Dioxide 21.0 Anion Gap 13.4 BUN 20 Creatinine 1.11 Est GFR (CKD-EPI) 50.876 Glucose 148 H POC Whole Bld Glucose POC Glucose POC Glucose Comment Osmolality Lactic Acid Calcium 8.2 L Magnesium 1.6 L Urine Osmolality Ur Random Sodium Blood Type 06/13/24 09:57 Corrected WBC Uncorrected WBC Count RBC Hgb Hct MCV MCH MCHC RDW Plt Count MPV Neut % (Auto) Lymph % (Auto) [place] % (Auto) Eos % (Auto) Baso % (Auto) Nucleat RBC Rel Count Neut # (Auto) Lymph # (Auto) [place] # (Auto) Eos # (Auto) Baso # (Auto) PT INR Heparin Anti-Xa, Unfract Sample Site VBG pH VBG pCO2 VBG pO2 VBG HCO3 VBG Total CO2 VBG O2 Saturation VBG O2 Content VBG Base Excess FiO2 Critical Value PHA Creatinine Clear Sodium Potassium Chloride Carbon Dioxide Anion Gap BUN Creatinine Est GFR (CKD-EPI) Glucose POC Whole Bld Glucose POC Glucose POC Glucose Comment Osmolality Lactic Acid Calcium Magnesium Urine Osmolality Ur Random Sodium Blood Type O Positive A&P - Cardiology (1) Hypokalemia: Plan: Potassium supplements Code(s): E87.6 - Hypokalemia (2) Hypomagnesemia: Plan: Magnesium supplements Code(s): E83.42 - Hypomagnesemia (3) Elevated troponin: Assessment/Problem Details: Could be due to Takotsubo cardiomyopathy versus May significant CAD Plan: Cardiac catheterization tomorrow Code(s): R79.89 - Other specified abnormal findings of blood chemistry (4) Hyponatremia: Assessment/Problem Details: Minimally symptomatic Plan: Avoid WADE inhibitors/ARB's/ARNI Code(s): E87.1 - Hypo-osmolality and hyponatremia (5) COVID-19: Assessment/Problem Details: No evidence of pneumonia on chest x-ray Plan: Continue present treatment Code(s): U07.1 - COVID-19 (6) Essential (primary) hypertension: Assessment/Problem Details: Presently her blood pressure is getting under control Plan: Beta-blockers and Aldactone Code(s): I10 - Essential (primary) hypertension (7) Type 2 diabetes mellitus with hyperglycemia: Qualifiers: Diabetes mellitus assisted insulin use: without assisted use Qualified Code(s): E11.65 - Type 2 diabetes mellitus with hyperglycemia Plan: To be managed by the hospitalist Code(s): E11.65 - Type 2 diabetes mellitus with hyperglycemia (8) Permanent atrial fibrillation: Assessment/Problem Details: Heart rate is above target Plan: And metoprolol to tartrate for heart rate control, patient has been on Coumadin which has been discontinued in preparation for cardiac catheterization Code(s): I48.21 - Permanent atrial fibrillation (9) Left ventricular systolic dysfunction: Assessment/Problem Details: Ejection fraction is down to 30% with severe regional wall motion abnormalities involving the anterior descending artery territory Plan: Due to hyponatremia will avoid WADE inhibitor, ARB and ARNI, beta-blockers and spironolactone, further plans to follow cardiac catheterization Code(s): I51.89 - Other ill-defined heart diseases (10) Non-ST elevation (NSTEMI) myocardial infarction: Assessment/Problem Details: Could be gentleman CAD versus stress cardiomyopathy Plan: Cardiac catheterization tomorrow, load the patient with Plavix Code(s): I21.4 - Non-ST elevation (NSTEMI) myocardial infarction (11) Dyslipidemia: Plan: High intensity statin Code(s): E78.5 - Hyperlipidemia, unspecified Plan Assessment: Septic shock New LV dysfunction EF 35-40%-possible Takotsubo cardiomyopathy. NYHA I symptoms. Euvolemic on exam Elevated troponin 544--3123--[id number]. Possible type II [place] from COVID myocarditis vs Takotsubo cardiomyopathy. Cannot rule out type I [place]. Lactic acidosis Hyponatremia Transaminitis in the setting of shock Permanent A-fib on Coumadin. Currently in slow VR. Hypertension Hyperlipidemia Diabetes type 2 CKD Echo completed today shows LVEF of 35-40% with wall motion abnormalities suggestive of Takotsubo cardiomyopathy. RVSP 40-50 mmHg. Normal RV size with moderately reduced function. Recommendations: - Start heparin gtt for possible ACS. Pt will need ischemic evaluation to r/o CAD once stable from a sepsis standpoint. - Wean Levophed for MAP greater than 65 - Start ASA & Statin. GDMT when BP is stable off pressors. Avoid BB if remains in slow VR. Monitor telemetry for arrhythmias. - Will obtain Mixed venous gas to calculate assumed Enrique cardiac output. Transduce CVP to guide fluid status and management -Given persistent lactic acidosis and increasing pressor requirements, recommendadditional 1 L fluid bolus with close monitoring of sodium and respiratory status. - Sepsis management per ICU team. -Will follow Documented By: Frandy Cabrera MD, [facility] 5 1050 Signed By: <Electronically signed by MD BEAU Cabrera> 06/13/24 7669 [facility] Work Phone: 1(781) 455-451302-03-20[place] [address] Pulmonology Progress Note Signed Patient: Lyric Juarez MR#: [id number] : 1945 Acct:[id number] Age/Sex: 78 / F Adm Date: 5 Loc: Room: [address] [place] [address] Type: ADM IN Attending Dr: Jaron Hicks MD Copies to: ~ Date of Service: 06/13/2024 Subjective Subjective Narrative: Patient feels breathing is stable with audible wheezing noted. She is conversant in full sentences. Exam Physical Exam Vital Signs: Temp Pulse Resp BP Pulse Ox O2 Del Method O2 Flow Rate 97.8 F 111 H 20 138/80 97 Nasal Cannula 3 06/13/24 04:00 06/13/24 08:54 06/13/24 08:54 06/13/24 07:00 06/13/24 08:55 06/13/24 08:55 06/13/24 08:55 Const General: cooperative Nutritional Appearance: average body habitus Orientation: alert and awake HEENT Head: normal to inspection Ears: hearing grossly normal bilaterally and external ears normal Nose: external nose normal Face and sinus: normal facial exam Eyes Sclera: sclerae normal Neck Neck: normal visual inspection (right internal jugular central venous catheter with dressing intact) Resp Effort & Inspection: normal respiratory effort Auscultation: clear to auscultation bilaterally, no rales, no rhonchi and wheezes expiratory wheezes (bilateral) Cardio Rate: tachycardic Rhythm: abnormal rhythm irregularly irregular Heart Sounds: S1 normal, S2 normal and no murmurs GI Inspection: normal to inspection Palpation: soft and nontender General: deferred Skin General: no rashes or lesions noted (Warm and dry) Extrem General: no pedal edema Objective Intake and Output I&O - Last 24 Hours: Intake & Output 06/12/24 06/13/24 06/13/24 23:59 07:59 15:59 Intake Total 200 / 250 200 / 200 Output Total 1850 / 1850 Balance 200 / 250 -1650 / -1650 Weight 81.4 kg Labs 06/13/24 05:12 06/13/24 05:12 Microbiology Micro: Microbiology 3 06/12/24 05:56 Blood Culture - Preliminary Blood - Right Hand No Growth 1 Day 06/12/24 06:05 Blood Culture - Preliminary Blood - Left Hand No Growth 1 Day Assessment/Plan Assessment/Plan (1) Sepsis: (2) Atrial fibrillation: (3) COVID-19: (4) Acute kidney injury: (5) Bradycardia: (6) Elevated troponin: (7) Hyponatremia: Plan Hospital day #2, right internal jugular central venous catheter day #1 for patient admitted for hypotension, atrial fibrillation with RVR with subsequent junctional bradycardia with possible Takatsubo's cardiomyopathy on echocardiogram (EF about 35%) with incidental finding of COVID positive status. Patient is no longer hypotensive. * Blood cultures negative x 1 days and await 2 days of negative cultures urine cultures not sent from [facility] but blood and urine send from [facility] with urine cultures sent out to reference lab and blood cultures negative to date from [facility]; continue vancomycin/zosyn per hospitalist service pending culture results * Suspicion for sepsis less likely given rapid resolution of hypotension (suspect some component ofcardiogenic shock) * Case discussed with cardiology; cardiac catheterization for today postponed due to coagulopathy, recommended giving FFP prior to coagulopathy for short term reversal of anticoagulation without giving vitamin K which may make anticoagulation more difficult * Continue supportive care note holding diuresis in preparation for catheterization tomorrow Documented By: Reilly Chanel MD 5 [id number] Signed By: 06/13/24 [facility]8 [facility]02-03-2025 [place] [address] Cardiology Progress Note Signed Patient: Lyric Juarez MR#: [id number] : 1945 Acct:[id number] Age/Sex: 78 / F Adm Date: 5 Loc: Room: [address] [place] [address] Type: ADM IN Attending Dr: Jaron Hicks MD Copies to: ~ Date of Service: 06/13/2024 Subjective Interval history: Ms. Juarez is a 78 year old female with PMH significant for Permanent Afib on Coumadin, follows with Dr Cabrera, HTN, HLD, DM II, CKD who presented to [place] ER for 1 day history of weakness. She denied chest pain, dyspnea, palpitations, light headedness or syncope. She was found to have low grade feverand was in Afib with RVR. She tested positive for COVID and other labs were significant for hyponatremia of 123, serum creatinine of 1.4, lactate of 2.3, troponin 544--3123--00550. EKG showed atrial fibrillation with slow VR and a new left bundle branch block. 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 Overnight she had brief episode of syncope and weakness and she was found to be hypotensive with ablood pressure of 60/43. She received 2 L normal saline without improvement andwas transferred to the ICU and started on Levophed. This a.m. she is awake and alert, she denies any chest pain, dyspnea or palpitations. She remains on Levophed at 12 with a MAP of 73. Chest x-ray completed today shows cardiomegaly with left lobe airspace disease and a small left pleural effusion. Echo completed today shows LVEF of 35-40% with wall motion abnormalities suggestive of Takotsubo cardiomyopathy. RVSP 40-50 mmHg. Normal RV size with moderately reduced function. Cardiology follow-up 06/13/2024: Patient is resting comfortably in the ICU. She denies any dyspnea orchest pain. Her blood pressure is now elevated and heart rate exceeded 100 bpm atrial fibrillation.INR is 3.4. She is on heparin drip as well. The patient's renal function is stable except for having low sodium 124 mmol/L. Magnesium 1.6 mg/dL and supplements have been provided. Echocardiogram suggest evidence of severe left ventricular systolic dysfunction with akinesis of the anteroseptal and apical segment. This could be stress cardiomyopathy, however, underlying severe CAD cannot be excluded and therefore coronary angiography is going to be necessary. Since her INR is supratherapeutic the cardiac catheterization has been postponed till tomorrow. Will reverse the Coumadin defect with fresh frozen plasma tomorrow and proceed with cardiac catheterization. The patient is in agreement withthe plan. In the meantime we will need to have more aggressive treatment of hypertension and heart rate and because of this metoprolol be resumed and will add spironolactone. Will avoid WADE inhibitors, ARB or ARNI due to hyponatremia. Discussed the case with the patient and with Dr. Chanel Exam Physical Exam Vital Signs: Temp Pulse Resp BP Pulse Ox O2 Del Method O2 Flow Rate 97.8 F 111 H 20 138/80 97 Nasal Cannula 3 06/13/24 04:00 06/13/24 08:54 06/13/24 08:54 06/13/24 07:00 06/13/24 08:55 06/13/24 08:55 06/13/24 08:55 Const General: cooperative, comfortable and no acute distress Nutritional Appearance: overweight Orientation: alert, awake and oriented x3 HEENT Head: normal to inspection, normocephalic and atraumatic Ears: hearing grossly normal bilaterally Nose: external nose normal Face and sinus: normal facial exam Eyes Conjunctivae: conjunctivae normal Neck Neck: trachea midline Neck mass: No Thyroid: thyroid normal Carotids: normal carotid upstroke Resp Effort & Inspection: normal respiratory effort Auscultation: clear to auscultation bilaterally Cardio Jugular venous pressure: no JVD Palpation: normal PMI Rate: tachycardic Rhythm: abnormal rhythm irregularly irregular Heart Sounds: S1 normal and S2 normal GI Palpation: soft and no hepatosplenomegaly Auscultation: normal bowel sounds Extrem General: no clubbing, cyanosis or edema Objective Labs 06/13/24 05:12 06/13/24 05:12 Labs: Laboratory Results - last 24 hr 06/12/24 06/12/24 06/12/24 09:21 11:18 11:54 Corrected WBC Uncorrected WBC Count RBC Hgb Hct MCV MCH MCHC RDW Plt Count MPV Neut % (Auto) Lymph % (Auto) [place] % (Auto) Eos % (Auto) Baso % (Auto) Nucleat RBC Rel Count Neut # (Auto) Lymph # (Auto) [place] # (Auto) Eos # (Auto) Baso # (Auto) PT 21.2 H INR 1.9 Heparin Anti-Xa, Unfract < 0.04 L Sample Site VBG pH VBG pCO2 VBG pO2 VBG HCO3 VBG Total CO2 VBG O2 Saturation VBG O2 Content VBG Base Excess FiO2 Critical Value PHA Creatinine Clear Sodium Potassium Chloride Carbon Dioxide Anion Gap BUN Creatinine Est GFR (CKD-EPI) Glucose POC Whole Bld Glucose POC Glucose 291 POC Glucose Comment Glu2: cleaned meter Osmolality 272 L Lactic Acid 1.9 Calcium Magnesium Urine Osmolality Ur Random Sodium Blood Type 06/12/24 06/12/24 06/12/24 14:10 14:42 17:00 Corrected WBC Uncorrected WBC Count RBC Hgb Hct MCV MCH MCHC RDW Plt Count MPV Neut % (Auto) Lymph % (Auto) [place] % (Auto) Eos % (Auto) Baso % (Auto) Nucleat RBC Rel Count Neut # (Auto) Lymph # (Auto) [place] # (Auto) Eos # (Auto) Baso # (Auto) PT INR Heparin Anti-Xa, Unfract 0.46 Sample Site Venous VBG pH 7.30 L VBG pCO2 39.0 VBG pO2 25.9 L VBG HCO3 18.9 L VBG Total CO2 20.1 L VBG O2 Saturation 39.8 L* VBG O2 Content 3.2 L VBG Base Excess -6.9 L FiO2 21 Critical Value PHA Creatinine Clear Sodium Potassium Chloride Carbon Dioxide Anion Gap BUN Creatinine Est GFR (CKD-EPI) Glucose POC Whole Bld Glucose POC Glucose POC Glucose Comment Osmolality Lactic Acid Calcium Magnesium Urine Osmolality 583 Ur Random Sodium 18 Blood Type 06/12/24 06/12/24 06/12/24 17:09 17:10 21:16 Corrected WBC Uncorrected WBC Count RBC Hgb Hct MCV MCH MCHC RDW Plt Count MPV Neut % (Auto) Lymph % (Auto) [place] % (Auto) Eos % (Auto) Baso % (Auto) Nucleat RBC Rel Count Neut # (Auto) Lymph # (Auto) [place] # (Auto) Eos # (Auto) Baso # (Auto) PT INR Heparin Anti-Xa, Unfract Sample Site Venous VBG pH 7.31 L VBG pCO2 35.7 L VBG pO2 35.4 VBG HCO3 17.4 L VBG Total CO2 18.5 L VBG O2 Saturation 58.3 L* VBG O2 Content 4.8 L VBG Base Excess -8.1 L FiO2 28 Critical Value PHA Creatinine Clear Sodium Potassium Chloride Carbon Dioxide Anion Gap BUN Creatinine Est GFR (CKD-EPI) Glucose POC Whole Bld Glucose 169 H POC Glucose 133 POC Glucose Comment Osmolality Lactic Acid Calcium Magnesium Urine Osmolality Ur Random Sodium Blood Type 06/12/24 06/13/24 06/13/24 23:15 05:12 06:50 Corrected WBC 9.8 Uncorrected WBC Count 9.8 RBC 4.07 Hgb 12.5 Hct 36.5 MCV 89.7 MCH 30.7 MCHC 34.3 RDW 14.3 Plt Count 257 MPV 8.0 Neut % (Auto) 79.4 Lymph % (Auto) 10.1 [place] % (Auto) 9.9 Eos % (Auto) 0.1 Baso % (Auto) 0.5 Nucleat RBC Rel Count 0.1 Neut # (Auto) 7.8 H Lymph # (Auto) 1.0 [place] # (Auto) 1.0 H Eos # (Auto) 0.0 Baso # (Auto) 0.0 PT 37.9 H INR 3.4 Heparin Anti-Xa, Unfract 0.56 0.55 Sample Site VBG pH VBG pCO2 VBG pO2 VBG HCO3 VBG Total CO2 VBG O2 Saturation VBG O2 Content VBG Base Excess FiO2 Critical Value PHA Creatinine Clear 44.44 Sodium 124 L* Potassium 3.4 L Chloride 93 L Carbon Dioxide 21.0 Anion Gap 13.4 BUN 20 Creatinine 1.11 Est GFR (CKD-EPI) 50.876 Glucose 148 H POC Whole Bld Glucose POC Glucose POC Glucose Comment Osmolality Lactic Acid Calcium 8.2 L Magnesium 1.6 L Urine Osmolality Ur Random Sodium Blood Type 06/13/24 09:57 Corrected WBC Uncorrected WBC Count RBC Hgb Hct MCV MCH MCHC RDW Plt Count MPV Neut % (Auto) Lymph % (Auto) [place] % (Auto) Eos % (Auto) Baso % (Auto) Nucleat RBC Rel Count Neut # (Auto) Lymph # (Auto) [place] # (Auto) Eos # (Auto) Baso # (Auto) PT INR Heparin Anti-Xa, Unfract Sample Site VBG pH VBG pCO2 VBG pO2 VBG HCO3 VBG Total CO2 VBG O2 Saturation VBG O2 Content VBG Base Excess FiO2 Critical Value PHA Creatinine Clear Sodium Potassium Chloride Carbon Dioxide Anion Gap BUN Creatinine Est GFR (CKD-EPI) Glucose POC Whole Bld Glucose POC Glucose POC Glucose Comment Osmolality Lactic Acid Calcium Magnesium Urine Osmolality Ur Random Sodium Blood Type O Positive A&P - Cardiology (1) Hypokalemia: Plan: Potassium supplements Code(s): E87.6 - Hypokalemia (2) Hypomagnesemia: Plan: Magnesium supplements Code(s): E83.42 - Hypomagnesemia (3) Elevated troponin: Assessment/Problem Details: Could be due to Takotsubo cardiomyopathy versus May significant CAD Plan: Cardiac catheterization tomorrow Code(s): R79.89 - Other specified abnormal findings of blood chemistry (4) Hyponatremia: Assessment/Problem Details: Minimally symptomatic Plan: Avoid WADE inhibitors/ARB's/ARNI Code(s): E87.1 - Hypo-osmolality and hyponatremia (5) COVID-19: Assessment/Problem Details: No evidence of pneumonia on chest x-ray Plan: Continue present treatment Code(s): U07.1 - COVID-19 (6) Essential (primary) hypertension: Assessment/Problem Details: Presently her blood pressure is getting under control Plan: Beta-blockers and Aldactone Code(s): I10 - Essential (primary) hypertension (7) Type 2 diabetes mellitus with hyperglycemia: Qualifiers: Diabetes mellitus cra officer insulin use: without cra officer use Qualified Code(s): E11.65 - Type 2 diabetes mellitus with hyperglycemia Plan: To be managed by the hospitalist Code(s): E11.65 - Type 2 diabetes mellitus with hyperglycemia (8) Permanent atrial fibrillation: Assessment/Problem Details: Heart rate is above target Plan: And metoprolol to tartrate for heart rate control, patient has been on Coumadin which has been discontinued in preparation for cardiac catheterization Code(s): I48.21 - Permanent atrial fibrillation (9) Left ventricular systolic dysfunction: Assessment/Problem Details: Ejection fraction is down to 30% with severe regional wall motion abnormalities involving the anterior descending artery territory Plan: Due to hyponatremia will avoid WADE inhibitor, ARB and ARNI, beta-blockers and spironolactone, further plans to follow cardiac catheterization Code(s): I51.89 - Other ill-defined heart diseases (10) Non-ST elevation (NSTEMI) myocardial infarction: Assessment/Problem Details: Could be gentleman CAD versus stress cardiomyopathy Plan: Cardiac catheterization tomorrow, load the patient with Plavix Code(s): I21.4 - Non-ST elevation (NSTEMI) myocardial infarction (11) Dyslipidemia: Plan: High intensity statin Code(s): E78.5 - Hyperlipidemia, unspecified Plan Assessment: Septic shock New LV dysfunction EF 35-40%-possible Takotsubo cardiomyopathy. NYHA I symptoms. Euvolemic on exam Elevated troponin 544--3123--57485. Possible type II AZ from COVID myocarditis vs Takotsubo cardiomyopathy. Cannot rule out type I AZ. Lactic acidosis Hyponatremia Transaminitis in the setting of shock Permanent A-fib on Coumadin. Currently in slow VR. Hypertension Hyperlipidemia Diabetes type 2 CKD Echo completed today shows LVEF of 35-40% with wall motion abnormalities suggestive of Takotsubo cardiomyopathy. RVSP 40-50 mmHg. Normal RV size with moderately reduced function. Recommendations: - Start heparin gtt for possible ACS. Pt will need ischemic evaluation to r/o CAD once stable from a sepsis standpoint. - Wean Levophed for MAP greater than 65 - Start ASA & Statin. GDMT when BP is stable off pressors. Avoid BB if remains in slow VR. Monitor telemetry for arrhythmias. - Will obtain Mixed venous gas to calculate assumed Enrique cardiac output. Transduce CVP to guide fluid status and management -Given persistent lactic acidosis and increasing pressor requirements, recommendadditional 1 L fluid bolus with close monitoring of sodium and respiratory status. - Sepsis management per ICU team. -Will follow Documented By: Frandy Cabrera MD, [facility] 5 [id number] Signed By: 06/13/24 1106 [facility]02-02-2025 Consult note Author Twila Montoya [facility] Note Date/Time June 12, 2024 2 :48pm [facility] [address] [place] [address] Cardiology Consult Note Signed Patient: Lyric Juarez MR#: [id number] : 1945 Acct:[id number] Age/Sex: 78 / F Adm Date: 5 Loc: Room: [address] [place] [address] Type: ADM IN Attending Dr: Dedrick Bella DO Copies to: MD Feilpe Hi MD Shawn J Warner, DO~ Cardiology HPI History of Present Illness Consult Date: 06/12/24 Reason for Consult: Afib with RVR, elevated troponin HPI: Ms. Juarez is a 78 year old female with PMH significant for Permanent Afib on Coumadin, follows with Dr Cabrera, HTN, HLD, DM II, CKD who presented to [place] ER for 1 day history of weakness. She denied chest pain, dyspnea, palpitations, light headedness or syncope. She was found to have low grade feverand was in Afib with RVR. She tested positive for COVID and other labs were significant for hyponatremia of 123, serum creatinine of 1.4, lactate of 2.3, troponin 544--3123--48871. EKG showed atrial fibrillation with slow VR and a new left bundle branch block. 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 Overnight she had brief episode of syncope and weakness and she was found to be hypotensive with ablood pressure of 60/43. She received 2 L normal saline without improvement andwas transferred to the ICU and started on Levophed. This a.m. she is awake and alert, she denies any chest pain, dyspnea or palpitations. She remains on Levophed at 12 with a MAP of 73. Chest x-ray completed today shows cardiomegaly with left lobe airspace disease and a small left pleural effusion. Echo completed today shows LVEF of 35-40% with wall motion abnormalities suggestive of Takotsubo cardiomyopathy. RVSP 40-50 mmHg. Normal RV size with moderately reduced function. Review of Systems Review of Systems All other systems reviewed & are negative unless noted below or in HPI [facility] Medical History Type 2 diabetes mellitus with hyperglycemia Paroxysmal atrial fibrillation (09/20/15) Other specified anxiety disorders (02/05/18) Hyperlipidemia, unspecified (09/20/15) History of falling Essential (primary) hypertension Erythrasma (11/09/17) Surgical History History of cholecystectomy Family History Father Mother Social History Smoking Status: Never smoker Substance Use Type: None Meds Medications and Allergies Allergies flecainide Allergy (Unknown, Verified 05/17/24 08:07) Hives Home Medications chlorthalidone 25 mg tablet 25 mg PO DAILY 04/19/24 [History Confirmed 06/11/24] diltiazem HCl 300 mg capsule,extended release 24 hr 300 mg PO DAILY 04/19/24 [History Confirmed 06/11/24] lancets 30 gauge (OneTouch Delica Plus Lancet) #100 ea 04/19/24 [History Confirmed 05/17/24] lisinopril 10 mg tablet 10 mg PO DAILY 04/19/24 [History Confirmed 06/11/24] potassium chloride 20 mEq tablet,extended release(part/cryst) (Klor-Con M) 20 meq PO DAILY 04/19/24 [History Confirmed 06/11/24] pravastatin 40 mg tablet 40 mg PO QHS 04/19/24 [History Confirmed 06/11/24] warfarin 2.5 mg tablet 2.5 mg PO DAILY 04/19/24 [History Confirmed 06/11/24] cholecalciferol (vitamin D3) 25 mcg (1,000 unit) capsule 25 mcg PO DAILY 04/20/24 [History Confirmed 06/11/24] metformin 500 mg tablet,extended release 24 hr 500 mg PO DAILY #30 tabs 05/17/24[Rx Confirmed 06/11/24] blood sugar diagnostic ([employer] Verio test strips) #100 strips 06/01/24 [Rx] dorzolamide-timolol (PF) 2 %-0.5 % eye drops in a dropperette 1 drp Eye-Both DAILY 06/11/24 [History Confirmed 06/11/24] Exam Physical Exam Vital Signs: Temp Pulse Resp BP Pulse Ox O2 Del Method O2 Flow Rate 97.8 F 50 L 24 104/61 94 L Nasal Cannula 2 06/12/24 12:00 06/12/24 12:00 06/12/24 12:00 06/12/24 12:00 06/12/24 12:00 06/12/24 12:00 06/12/24 12:00 Narrative: GEN: AAOx3. No acute distress. Neck: No JVD. Lungs: Clear to auscultation bilaterally Heart: Regular rate and rhythm. Normal S1 and S2. No murmurs or rubs appreciated. Abdomen: Soft, nontender, nondistended, bowel sounds present. Extremities: No BLE edema. Neuro: AAOx3. No focal deficits. Results - Cardiology Labs 06/12/24 05:57 06/12/24 05:57 Lab results: Cardiac Enzymes 06/12/24 06/12/24 Range/Units 00:57 05:57 AST 76 H 296 H (13-39) U/L CBC 06/12/24 Range/Units 05:57 RBC 4.19 (3.60-5.00) x10E6/uL Hgb 13.1 (11.8-15.4) g/dL Hct 38.9 (34.0-46.4) % Plt Count 258 (150-450) x10E3/uL Neut # (Auto) 7.6 (1.8-7.7) x10E3/uL Lymph # (Auto) 1.4 (1.00-4.8) x10E3/uL [place] # (Auto) 1.2 H (0.0-0.8) x10E3/uL Eos # (Auto) 0.0 (0.0-0.45) x10E3/uL Baso # (Auto) 0.1 (0.0-0.2) x10E3/uL Comprehensive Metabolic Panel 06/12/24 06/12/24 Range/Units 00:57 05:57 Sodium 124 L* 124 L* (136-145) mmol/L Potassium 3.2 L 3.8 (3.5-5.1) mmol/L Chloride 92 L 96 L (98-107) mmol/L Carbon Dioxide 19.8 L 15.6 L (21.0-31.0) mmol/L BUN 20 21 (7-25) mg/dL Creatinine 0.98 1.15 (0.60-1.20) mg/dL Glucose 164 H 177 H (70-100) mg/dL Calcium 8.1 L 7.8 L (8.6-10.3) mg/dL AST 76 H 296 H (13-39) U/L ALT 29 138 H (7-52) U/L Alkaline Phosphatase 59 108 H (34-104) U/L Total Protein 6.2 L 6.1 L (6.4-8.9) gm/dL Albumin 3.8 3.7 (3.5-5.7) gm/dL Intake and Output 06/11/24 06/12/24 06/12/24 23:59 07:59 15:59 Intake Total 50 / 50 Balance 50 / 50 Intake: Oral 50 / 50 Other: Weight 83 kg 83 kg Date of Last Bowel Movement 06/11/24 06/12/24 06/12/24 Patient Weight 06/12/24 23:59 Weight 83 kg Lab 06/12/24 09:21 PT 21.2 H INR 1.9 A&P - Cardiology (1) Hypokalemia: Code(s): E87.6 - Hypokalemia (2) Hypomagnesemia: Code(s): E83.42 - Hypomagnesemia (3) Elevated troponin: Code(s): R79.89 - Other specified abnormal findings of blood chemistry (4) Hyponatremia: Code(s): E87.1 - Hypo-osmolality and hyponatremia (5) Acute kidney injury: Code(s): N17.9 - Acute kidney failure, unspecified (6) COVID-19: Code(s): U07.1 - COVID-19 (7) Essential (primary) hypertension: Code(s): I10 - Essential (primary) hypertension (8) Type 2 diabetes mellitus with hyperglycemia: Qualifiers: Diabetes mellitus cra officer insulin use: without cra officer use Qualified Code(s): E11.65 - Type 2 diabetes mellitus with hyperglycemia Code(s): E11.65 - Type 2 diabetes mellitus with hyperglycemia (9) Permanent atrial fibrillation: Code(s): I48.21 - Permanent atrial fibrillation Plan Assessment: Septic shock New LV dysfunction EF 35-40%-possible Takotsubo cardiomyopathy. NYHA I symptoms. Euvolemic on exam Elevated troponin 544--3123--13147. Possible type II AZ from COVID myocarditis vs Takotsubo cardiomyopathy. Cannot rule out type I AZ. Lactic acidosis Hyponatremia Transaminitis in the setting of shock Permanent A-fib on Coumadin. Currently in slow VR. Hypertension Hyperlipidemia Diabetes type 2 CKD Echo completed today shows LVEF of 35-40% with wall motion abnormalities suggestive of Takotsubo cardiomyopathy. RVSP 40-50 mmHg. Normal RV size with moderately reduced function. Recommendations: - Start heparin gtt for possible ACS. Pt will need ischemic evaluation to r/o CAD once stable from a sepsis standpoint. - Wean Levophed for MAP greater than 65 - Start ASA & Statin. GDMT when BP is stable off pressors. Avoid BB if remains in slow VR. Monitor telemetry for arrhythmias. - Will obtain Mixed venous gas to calculate assumed Enrique cardiac output. Transduce CVP to guide fluid status and management -Given persistent lactic acidosis and increasing pressor requirements, recommendadditional 1 L fluid bolus with close monitoring of sodium and respiratory status. - Sepsis management per ICU team. -Will follow Documented By: Twila Montoya MD 06/12/24 1430 Signed By: <Electronically signed by Tiwla Montoya MD> 06/12/24 1446 [facility] Work Phone: 1(554) 356-494202-02-2025 [place] [address] Cardiology Consult Note Signed Patient: Lyric Juarez MR#: [id number] : 1945 Acct:[id number] Age/Sex: 78 / F Adm Date: 5 Loc: Room: [address] [place] [address] Type: ADM IN Attending Dr: Dedrick Bella DO Copies to: MD Felipe Hi MD Shawn J Warner, DO~ Cardiology HPI History of Present Illness Consult Date: 06/12/24 Reason for Consult: Afib with RVR, elevated troponin HPI: Ms. Juarez is a 78 year old female with PMH significant for Permanent Afib on Coumadin, follows with Dr Cabrera, HTN, HLD, DM II, CKD who presented to [place] ER for 1 day history of weakness. She denied chest pain, dyspnea, palpitations, light headedness or syncope. She was found to have low grade feverand was in Afib with RVR. She tested positive for COVID and other labs were significant for hyponatremia of 123, serum creatinine of 1.4, lactate of 2.3, troponin 544--3123--75473. EKG showed atrial fibrillation with slow VR and a new left bundle branch block. 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 Overnight she had brief episode of syncope and weakness and she was found to be hypotensive with ablood pressure of 60/43. She received 2 L normal saline without improvement andwas transferred to the ICU and started on Levophed. This a.m. she is awake and alert, she denies any chest pain, dyspnea or palpitations. She remains on Levophed at 12 with a MAP of 73. Chest x-ray completed today shows cardiomegaly with left lobe airspace disease and a small left pleural effusion. Echo completed today shows LVEF of 35-40% with wall motion abnormalities suggestive of Takotsubo cardiomyopathy. RVSP 40-50 mmHg. Normal RV size with moderately reduced function. Review of Systems Review of Systems All other systems reviewed & are negative unless noted below or in HPI [facility] Medical History Type 2 diabetes mellitus with hyperglycemia Paroxysmal atrial fibrillation (09/20/15) Other specified anxiety disorders (02/05/18) Hyperlipidemia, unspecified (09/20/15) History of falling Essential (primary) hypertension Erythrasma (11/09/17) Surgical History History of cholecystectomy Family History Father Mother Social History Smoking Status: Never smoker Substance Use Type: None Meds Medications and Allergies Allergies flecainide Allergy (Unknown, Verified 05/17/24 08:07) Hives Home Medications chlorthalidone 25 mg tablet 25 mg PO DAILY 04/19/24 [History Confirmed 06/11/24] diltiazem HCl 300 mg capsule,extended release 24 hr 300 mg PO DAILY 04/19/24 [History Confirmed 06/11/24] lancets 30 gauge ([employer] Delica Plus Lancet) #100 ea 04/19/24 [History Confirmed 05/17/24] lisinopril 10 mg tablet 10 mg PO DAILY 04/19/24 [History Confirmed 06/11/24] potassium chloride 20 mEq tablet,extended release(part/cryst) (Klor-Con M) 20 meq PO DAILY 04/19/24[History Confirmed 06/11/24] pravastatin 40 mg tablet 40 mg PO QHS 04/19/24 [History Confirmed 06/11/24] warfarin 2.5 mg tablet 2.5 mg PO DAILY 04/19/24 [History Confirmed 06/11/24] cholecalciferol (vitamin D3) 25 mcg (1,000 unit) capsule 25 mcg PO DAILY 04/20/24 [History Confirmed 06/11/24] metformin 500 mg tablet,extended release 24 hr 500 mg PO DAILY #30 tabs 05/17/24[Rx Confirmed 06/11/24] blood sugar diagnostic ([employer] Verio test strips) #100 strips 06/01/24 [Rx] dorzolamide-timolol (PF) 2 %-0.5 % eye drops in a dropperette 1 drp Eye-Both DAILY 06/11/24 [History Confirmed 06/11/24] Exam Physical Exam Vital Signs: Temp Pulse Resp BP Pulse Ox O2 Del Method O2 Flow Rate 97.8 F 50 L 24 104/61 94 L Nasal Cannula 2 06/12/24 12:00 06/12/24 12:00 06/12/24 12:00 06/12/24 12:00 06/12/24 12:00 06/12/24 12:00 06/12/24 12:00 Narrative: GEN: AAOx3. No acute distress. Neck: No JVD. Lungs: Clear to auscultation bilaterally Heart: Regular rate and rhythm. Normal S1 and S2. No murmurs or rubs appreciated. Abdomen: Soft, nontender, nondistended, bowel sounds present. Extremities: No BLE edema. Neuro: AAOx3. No focal deficits. Results - Cardiology Labs 06/12/24 05:57 06/12/24 05:57 Lab results: Cardiac Enzymes 06/12/24 06/12/24 Range/Units 00:57 05:57 AST 76 H 296 H (13-39) U/L CBC 06/12/24 Range/Units 05:57 RBC 4.19 (3.60-5.00) x10E6/uL Hgb 13.1 (11.8-15.4) g/dL Hct 38.9 (34.0-46.4) % Plt Count 258 (150-450) x10E3/uL Neut # (Auto) 7.6 (1.8-7.7) x10E3/uL Lymph # (Auto) 1.4 (1.00-4.8) x10E3/uL [place] # (Auto) 1.2 H (0.0-0.8) x10E3/uL Eos # (Auto) 0.0 (0.0-0.45) x10E3/uL Baso # (Auto) 0.1 (0.0-0.2) x10E3/uL Comprehensive Metabolic Panel 06/12/24 06/12/24 Range/Units 00:57 05:57 Sodium 124 L* 124 L* (136-145) mmol/L Potassium 3.2 L 3.8 (3.5-5.1) mmol/L Chloride 92 L 96 L (98-107) mmol/L Carbon Dioxide 19.8 L 15.6 L (21.0-31.0) mmol/L BUN 20 21 (7-25) mg/dL Creatinine 0.98 1.15 (0.60-1.20) mg/dL Glucose 164 H 177 H (70-100) mg/dL Calcium 8.1 L 7.8 L (8.6-10.3) mg/dL AST 76 H 296 H (13-39) U/L ALT 29 138 H (7-52) U/L Alkaline Phosphatase 59 108 H (34-104) U/L Total Protein 6.2 L 6.1 L (6.4-8.9) gm/dL Albumin 3.8 3.7 (3.5-5.7) gm/dL Intake and Output 06/11/24 06/12/24 06/12/24 23:59 07:59 15:59 Intake Total 50 / 50 Balance 50 / 50 Intake: Oral 50 / 50 Other: Weight 83 kg 83 kg Date of Last Bowel Movement 06/11/24 06/12/24 06/12/24 Patient Weight 06/12/24 23:59 Weight 83 kg Lab 06/12/24 09:21 PT 21.2 H INR 1.9 A&P - Cardiology (1) Hypokalemia: Code(s): E87.6 - Hypokalemia (2) Hypomagnesemia: Code(s): E83.42 - Hypomagnesemia (3) Elevated troponin: Code(s): R79.89 - Other specified abnormal findings of blood chemistry (4) Hyponatremia: Code(s): E87.1 - Hypo-osmolality and hyponatremia (5) Acute kidney injury: Code(s): N17.9 - Acute kidney failure, unspecified (6) COVID-19: Code(s): U07.1 - COVID-19 (7) Essential (primary) hypertension: Code(s): I10 - Essential (primary) hypertension (8) Type 2 diabetes mellitus with hyperglycemia: Qualifiers: Diabetes mellitus assisted insulin use: without cra officer use Qualified Code(s): E11.65 - Type 2 diabetes mellitus with hyperglycemia Code(s): E11.65 - Type 2 diabetes mellitus with hyperglycemia (9) Permanent atrial fibrillation: Code(s): I48.21 - Permanent atrial fibrillation Plan Assessment: Septic shock New LV dysfunction EF 35-40%-possible Takotsubo cardiomyopathy. NYHA I symptoms. Euvolemic on exam Elevated troponin [id number]. Possible type II AZ from COVID myocarditis vs Takotsubo cardiomyopathy. Cannot rule out type I AZ. Lactic acidosis Hyponatremia Transaminitis in the setting of shock Permanent A-fib on Coumadin. Currently in slow VR. Hypertension Hyperlipidemia Diabetes type 2 CKD Echo completed today shows LVEF of 35-40% with wall motion abnormalities suggestive of Takotsubo cardiomyopathy. RVSP 40-50 mmHg. Normal RV size with moderately reduced function. Recommendations: - Start heparin gtt for possible ACS. Pt will need ischemic evaluation to r/o CAD once stable from a sepsis standpoint. - Wean Levophed for MAP greater than 65 - Start ASA & Statin. GDMT when BP is stable off pressors. Avoid BB if remains in slow VR. Monitor telemetry for arrhythmias. - Will obtain Mixed venous gas to calculate assumed Enrique cardiac output. Transduce CVP to guide fluid status and management -Given persistent lactic acidosis and increasing pressor requirements, recommendadditional 1 L fluid bolus with close monitoring of sodium and respiratory status. - Sepsis management per ICU team. -Will follow Documented By: Twila Montoya MD 06/12/24 1430 Signed By: 06/12/24 1448 [facility]02-02-2025 Consult note Author Kris Everett [facility] Note Date/Time June 12, 2024 [facility] [address] [place] [address] Pulmonology Consult Note Signed Patient: Lyric Juarez MR#: [id number] : 1945 Acct:[id number] Age/Sex: 78 / F Adm Date: 5 Loc: Room: [address] [place] [address] Type: ADM IN Attending Dr: Dedrick Bella DO Copies to: MD Felipe Monzon MD Shawn J Warner, DO~ HPI Date/Time of Consultation: Date of Service: 06/12/2024 Time of Service: 11:24 Consulting Provider: Kris Everett Requesting Provider: Dedrick Bella Reason for Consult: Sepsis History of Present Illness History of present illness: Ms. Juarez is a 78 year old female with history of atrial fibrillaion, HTN, DM2, CKD3, and dyslipidemia who presented to [place] ED after a fall. Apparently the patient has not been feeling well for the past day prior to admission with fatigue and some fevers. She denies any nausea or vomiting denies any diarrhea, chest pain or shortness of breath. In ER she was noted to be febrile but with good sats on room air. She was in A-fib with rapid ventricular rate but subsequently her rate changed to junctional bradycardia rhythm with hypotension. She received 2 L of normal saline but continues to be hypotensive and require norepinephrine drip and hence was transferred to [facility] ICU. Today the patient reports that she feels better but continues to require 15 mcg of norepinephrine drip. She continues to deny chest pain or shortness of breath. She denies ever smoking denies significant respiratory issues in the past. She is known to have underlying atrial fibrillation and has been on warfarin with therapeutic INR on presentation. Review of Systems Review of Systems All other systems reviewed & are negative unless noted below or in HPI [facility] Medical History Type 2 diabetes mellitus with hyperglycemia Paroxysmal atrial fibrillation (09/20/15) Other specified anxiety disorders (02/05/18) Hyperlipidemia, unspecified (09/20/15) History of falling Essential (primary) hypertension Erythrasma (11/09/17) Surgical History History of cholecystectomy Family History Father Mother Social History Smoking Status: Never smoker Substance Use Type: None Meds Medications and Allergies Allergies flecainide Allergy (Unknown, Verified 05/17/24 08:07) Hives Home Medications chlorthalidone 25 mg tablet 25 mg PO DAILY 04/19/24 [History Confirmed 06/11/24] diltiazem HCl 300 mg capsule,extended release 24 hr 300 mg PO DAILY 04/19/24 [History Confirmed 06/11/24] lancets 30 gauge (OneTouch Delica Plus Lancet) #100 ea 04/19/24 [History Confirmed 05/17/24] lisinopril 10 mg tablet 10 mg PO DAILY 04/19/24 [History Confirmed 06/11/24] potassium chloride 20 mEq tablet,extended release(part/cryst) (Klor-Con M) 20 meq PO DAILY 04/19/24 [History Confirmed 06/11/24] pravastatin 40 mg tablet 40 mg PO QHS 04/19/24 [History Confirmed 06/11/24] warfarin 2.5 mg tablet 2.5 mg PO DAILY 04/19/24 [History Confirmed 06/11/24] cholecalciferol (vitamin D3) 25 mcg (1,000 unit) capsule 25 mcg PO DAILY 04/20/24 [History Confirmed 06/11/24] metformin 500 mg tablet,extended release 24 hr 500 mg PO DAILY #30 tabs 05/17/24[Rx Confirmed 06/11/24] blood sugar diagnostic ([employer] Verio test strips) #100 strips 06/01/24 [Rx] dorzolamide-timolol (PF) 2 %-0.5 % eye drops in a dropperette 1 drp Eye-Both DAILY 06/11/24 [History Confirmed 06/11/24] Exam Physical Exam Vital Signs: Temp Pulse Resp BP Pulse Ox O2 Del Method O2 Flow Rate 97.6 F 46 L 24 92/52 L 94 L Nasal Cannula 2 06/11/24 22:45 06/12/24 06:56 06/12/24 06:00 06/12/24 06:56 06/12/24 06:00 06/12/24 06:00 06/12/24 06:00 Narrative: General: Awake and alert, appears in no acute respiratory distress HEENT: Head normocephalic atraumatic. Neck: Supple. Pulmonary: Good breath sounds to both lung vail without wheezing. Cardiovascular: Regular rate and rhythm. No murmurs Abdomen: Soft, nontender and nondistended. Extremities: No edema. Skin: No lesions ANTISQUEAK FILLER: Awake alert and oriented x 3 follows simple commands. Psych: Appears appropriate without signs of anxiety or depression. Results - Pulmonology Intake and Output I&O - Last 24 Hours: Intake & Output 06/11/24 06/12/24 06/12/24 23:59 07:59 15:59 Intake Total 50 / 50 Balance 50 / 50 Weight 83 kg 83 kg Labs 06/12/24 05:57 06/12/24 05:57 Microbiology Micro: 06/12/24 06:05 Blood Culture - Pending Blood - Left Hand 06/12/24 05:56 Blood Culture - Pending Blood - Right Hand Imaging and Cardiology Chest x-ray: Status: image reviewed by me (Chest x-ray from her outlying hospital showed no acute infiltrates. Her repeated chest x-ray post line insertion showed left basilar haziness with possible left lower lobe infiltrate/effusion.) EKG: Status: image reviewed by me (EKG from ER with A-fib with rapid ventricular rate with a relatively narrow QRS complex and her most recent EKG with junctional bradycardia with a wider QRS complex.) Assessment/Plan (1) Sepsis: Plan: With severe hypotension requiring norepinephrine drip despite appropriate IV fluids. Likely with a cardiac component of her hypotension given her bradycardia and junctional rhythm. Her urinalysis from the outside hospital was reported as abnormal. Will continue with broad-spectrum antibiotics coverage pending culture results. Will place central line for pressors infusion. (2) Atrial fibrillation: Plan: Presented with A-fib with rapid ventricular rate. Noted to have A-fib at baseline. Now with bradycardia and junctional rhythm. Will hold her Cardizem. Cardiology is on board. (3) COVID-19: Plan: Tested positive for COVID but no hypoxia at this point. Will hold off on remdesivir and steroids but consider adding dexamethasone if becomes hypoxic. (4) Acute kidney injury: Plan: Likely secondary to hypotension and intravascular depletion from sepsis. And improved with IV fluids. (5) Bradycardia: Plan: As above. Cardiology is on board. (6) Elevated troponin: Plan: Cardiology is on board. Awaiting further input. (7) Hyponatremia: Plan: Continue with normal saline and monitor her electrolytes closely. Plan Critical care time was 33 minutes excluding the time needed for central line placement Documented By: Kris Everett MD 06/12/24 1124 Signed By: <Electronically signed by Kris Everett MD> 06/12/24 1133 [facility] Work Phone: 1(186) 134-422302-02-2025 Progress note Author Dedrick Bella [facility] Note Date/Time June 12, 2024 1 0:55am [facility] [address] [place] [address] Hospitalist Progress Note Signed Patient: Lyric Juarez MR#: [id number] : 1945 Acct:[id number] Age/Sex: 78 / F Adm Date: 5 Loc: Room: [address] [place] [address] Type: ADM IN Attending Dr: Dedrick Bella DO Copies to: ~ Date of Service: 06/12/2024 Subjective Subjective Narrative: Evaluated this morning during echocardiogram, ultrasound was corroborated. Patient continues not having any chest pain he states he went to emergency room because she was weak and fell at home. She denies hitting her head. She has had atrial fibrillation for some time now but denies any history of coronary artery disease. Exam Physical Exam Vital Signs: Temp Pulse Resp BP Pulse Ox O2 Del Method O2 Flow Rate 97.6 F 46 L 24 92/52 L 94 L Nasal Cannula 2 06/11/24 22:45 06/12/24 06:56 06/12/24 06:00 06/12/24 06:56 06/12/24 06:00 06/12/24 06:00 06/12/24 06:00 Narrative: General: Awake alert, no acute distress HEENT: head atraumatic, normocephalic, moist mucous membranes Neck: supple no masses, no lymphadenopathy CVS: Decreased rate, regular rhythm, no murmurs or gallops Respiratory: clear to auscultation bilaterally, no wheezing or crackles, symmetric expansion GI: soft, nondistended, nontender, positive bowel sounds with no organomegaly Extremity: moves all extremities, no restrictions of movements, no calf tenderness, no edema Neuro: AOx3, CN II-VII intact. Moves all extremities in all planes of motion. Skin: dry, intact no rashes or lesions Objective Lab Results 06/12/24 05:57 06/12/24 05:57 ABG Interpretation ABG results: 06/12/24 04:00 ABG pH 7.38 ABG pCO2 24.4 L* ABG pO2 105.0 H ABG HCO3 14.2 L ABG Total CO2 15.0 L ABG O2 Saturation 97.5 ABG O2 Content 7.7 ABG Base Excess -9.1 L Meds Allergies and Active Meds Allergies flecainide Allergy (Unknown, Verified 05/17/24 08:07) Hives Active Meds: Active Medications Generic Name Dose Route Start Last Admin Trade Name Freq PRN Reason Stop Dose Admin Acetaminophen 650 mg 06/12/24 00:34 Acetaminophen 325 Mg Tablet PO 06/12/25 00:33 Q6HR PRN Pain Scale 1 - 3 or fever Aspirin 81 mg 06/12/24 10:00 06/12/24 10:47 Aspirin 81 Mg Tab.Chew PO 06/12/25 09:59 81 mg DAILY ERNESTINA Administration Atorvastatin Calcium 40 mg 06/12/24 21:00 Atorvastatin 40 Mg Tablet PO 06/12/25 20:59 QPM ERNESTINA Dextrose 0 gm 06/12/24 00:40 Dextrose 50% In Water 25 Gm/50 Ml Syringe IV-PUSH 06/12/25 00:39 PRN PRN Hypoglycemia Dorzolamide HCl 1 drops 06/12/24 09:00 06/12/24 09:38 Dorzolamide 2% Op Soln 200 Drops/10 Ml Bottle EYE-BOTH 06/12/25 08:59 1 drops DAILY ERNESTINA Administration Glucose 0 gm 06/12/24 00:40 Dextrose 40% Gel 15 Gm Tube PO 06/12/25 00:39 PRN PRN Hypoglycemia Heparin Sodium (Porcine) 2,000 unit 06/12/24 09:21 Heparin *Protocol Bolus* 5,000 Unit/Ml Vial IV-PUSH 06/12/25 09:20 PROTOCOL PRN Anti-Xa < 0.1 or aPTT < 40 Magnesium Sulfate 2 gm in 50 mls @ 25 mls/hr 06/12/24 00:34 Magnesium Sulf 2gm-*Swfi* IV 06/12/25 00:33 DAILY PRN Magnesium Level < 1.5 Sodium Chloride 1,000 mls @ 75 mls/hr 06/12/24 01:45 06/12/24 01:43 0.9% Sodium Chloride 1,000 Ml IV 06/12/24 15:04 75 mls/hr .[id number] ERNESTINA Administration Norepinephrine Bitartrate 16 mg in 250 mls @ 4.688 mls/hr 06/12/24 05:00 06/12/24 06:56 Levophed IV 06/12/25 04:59 5 mcg/min .Q24H ERNESTINA 4.69 mls/hr Administration Protocol 5 MCG/MIN Vancomycin HCl 1.25 gm/ 275 mls @ 183.333 mls/hr 06/13/24 06:30 Dextrose IV 06/13/25 06:29 Q24H ERNESTINA Heparin Sodium/Sodium Chloride 25,000 unit in 250 mls @ 9.96 mls/hr 06/12/24 10:00 06/12/24 10:46 Heparin IV 06/12/25 09:59 12 unit/kg/hr .Q24H ERNESTINA 9.96 mls/hr Administration Protocol 12 UNIT/KG/HR Piperacillin Sod/Tazobactam Sod 4.5 gm in 100 mls @ 25 mls/hr 06/12/24 14:00 Zosyn IV Q8H ERNESTINA Insulin Aspart 0 units 06/12/24 08:00 06/12/24 09:38 Insulin Aspart 300 Units/3 Ml SUBCUT 06/12/25 07:59 3 units TID.WM.HS ERNESTINA Administration Protocol Miscellaneous Information 1 each 06/12/24 09:21 Consult To Pharmacy MISCELLANE 06/12/25 09:20 .PHACONSULT PRN ZZ.Pharmacy Consult Protocol Ondansetron HCl 4 mg 06/12/24 00:34 06/12/24 02:39 Ondansetron 4 Mg/2 Ml Vial IV-PUSH 06/12/25 00:33 4 mg Q8H PRN Administration Nausea And Vomiting Potassium Chloride 20 meq 06/12/24 00:34 Potassium Chloride Er 20 Meq Tab.Er.Prt PO 06/12/25 00:33 DAILY PRN Hypokalemia Potassium Chloride 40 meq 06/12/24 00:34 Potassium Chloride Er 20 Meq Tab.Er.Prt PO 06/12/25 00:33 DAILY PRN Hypokalemia Timolol Maleate 1 drops 06/12/24 09:00 06/12/24 09:38 Timolol Mal 0.5% Op Soln 100 Drops/5 Ml Bottle EYE-BOTH 06/12/25 08:59 1 drops DAILY ERNESTINA Administration Vancomycin HCl 1 each 06/12/24 05:02 Vancomycin - Pharmacy Dosing 1 Each Miscell IV ONCE PRN ZZ.Pharmacy Consult Protocol A&P - Hospitalist Assessment/Plan (1) Atrial fibrillation: (2) COVID-19: (3) Sepsis: (4) UTI (urinary tract infection): (5) Acute kidney injury: (6) Hyponatremia: (7) Hypotension: (8) Bradycardia: (9) Elevated troponin: (10) Hypomagnesemia: (11) Hypokalemia: Plan Severe Sepsis UTI lactic acidosis pt became hypotensive -> started levophed and transferred to ICU Continue zosyn/vancomycin empirically obtain blood cultures x2 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 repeat pending Hyponatremia hold thiazide IV volume resuscitation with normal saline repeat BMP in am fluid restriction 1500 ml Serum osmolality low at 271, urine osmolality urine sodium levels pending DM2- accucheck ac/hs, SSI, hypoglycemia protocol. hold oral hypoglycemic meds FULL CODE DVT prophylaxis addressed with warfarin and she is now on heparin gtt. ? N.p.o. pending cardiology valuation Documented By: Dedrick Bella DO 06/12/24 1051 Signed By: <Electronically signed by Dedrick Bella, > 06/12/24 1055 [facility] Work Phone: 1(622) 826-596202-02-2025 [place] [address] Pulmonology Consult Note Signed Patient: Lyric Juarez MR#: [id number] : 1945 Acct:[id number] Age/Sex: 78 / F Adm Date: 5 Loc: Room: [address] [place] [address] Type: ADM IN Attending Dr: Dedrick Bella DO Copies to: MD Felipe Monzon MD Shawn J Warner, DO~ HPI Date/Time of Consultation: Date of Service: 06/12/2024 Time of Service: 11:24 Consulting Provider: Kris Everett Requesting Provider: Dedrick Bella Reason for Consult: Sepsis History of Present Illness History of present illness: Ms. Juarez is a 78 year old female with history of atrial fibrillaion, HTN, DM2, CKD3, and dyslipidemia who presented to [place] ED after a fall. Apparently the patient has not been feeling well for the past day prior to admission with fatigue and some fevers. She denies any nausea or vomiting denies any diarrhea, chest pain or shortness of breath. In ER she was noted to be febrile but with good sats on room air. She was in A-fib with rapid ventricular rate but subsequently her rate changed to junctional bradycardia rhythm with hypotension. She received 2 L of normal saline but continues raul hypotensive and require norepinephrine drip and hence was transferred to [facility] ICU. Today the patient reports that she feels better but continues to require 15 mcg of norepinephrine drip. She continues to deny chest pain or shortness of breath. She denies ever smoking denies significant respiratory issues in the past. She is known to have underlying atrial fibrillation and has been on warfarin with therapeutic INR on presentation. Review of Systems Review of Systems All other systems reviewed & are negative unless noted below or in HPI [facility] Medical History Type 2 diabetes mellitus with hyperglycemia Paroxysmal atrial fibrillation (09/20/15) Other specified anxiety disorders (02/05/18) Hyperlipidemia, unspecified (09/20/15) History of falling Essential (primary) hypertension Erythrasma (11/09/17) Surgical History History of cholecystectomy Family History Father Mother Social History Smoking Status: Never smoker Substance Use Type: None Meds Medications and Allergies Allergies flecainide Allergy (Unknown, Verified 05/17/24 08:07) Hives Home Medications chlorthalidone 25 mg tablet 25 mg PO DAILY 04/19/24 [History Confirmed 06/11/24] diltiazem HCl 300 mg capsule,extended release 24 hr 300 mg PO DAILY 04/19/24 [History Confirmed 06/11/24] lancets 30 gauge (OneTouch Delica Plus Lancet) #100 ea 04/19/24 [History Confirmed 05/17/24] lisinopril 10 mg tablet 10 mg PO DAILY 04/19/24 [History Confirmed 06/11/24] potassium chloride 20 mEq tablet,extended release(part/cryst) (Klor-Con M) 20 meq PO DAILY 04/19/24[History Confirmed 06/11/24] pravastatin 40 mg tablet 40 mg PO QHS 04/19/24 [History Confirmed 06/11/24] warfarin 2.5 mg tablet 2.5 mg PO DAILY 04/19/24 [History Confirmed 06/11/24] cholecalciferol (vitamin D3) 25 mcg (1,000 unit) capsule 25 mcg PO DAILY 04/20/24 [History Confirmed 06/11/24] metformin 500 mg tablet,extended release 24 hr 500 mg PO DAILY #30 tabs 05/17/24[Rx Confirmed 06/11/24] blood sugar diagnostic ([employer] Verio test strips) #100 strips 06/01/24 [Rx] dorzolamide-timolol (PF) 2 %-0.5 % eye drops in a dropperette 1 drp Eye-Both DAILY 06/11/24 [History Confirmed 06/11/24] Exam Physical Exam Vital Signs: Temp Pulse Resp BP Pulse Ox O2 Del Method O2 Flow Rate 97.6 F 46 L 24 92/52 L 94 L Nasal Cannula 2 06/11/24 22:45 06/12/24 06:56 06/12/24 06:00 06/12/24 06:56 06/12/24 06:00 06/12/24 06:00 06/12/24 06:00 Narrative: General: Awake and alert, appears in no acute respiratory distress HEENT: Head normocephalic atraumatic. Neck: Supple. Pulmonary: Good breath sounds to both lung vail without wheezing. Cardiovascular: Regular rate and rhythm. No murmurs Abdomen: Soft, nontender and nondistended. Extremities: No edema. Skin: No lesions ANTISQUEAK FILLER: Awake alert and oriented x 3 follows simple commands. Psych: Appears appropriate without signs of anxiety or depression. Results - Pulmonology Intake and Output I&O - Last 24 Hours: Intake & Output 06/11/24 06/12/24 06/12/24 23:59 07:59 15:59 Intake Total 50 / 50 Balance 50 / 50 Weight 83 kg 83 kg Labs 06/12/24 05:57 06/12/24 05:57 Microbiology Micro: 06/12/24 06:05 Blood Culture - Pending Blood - Left Hand 06/12/24 05:56 Blood Culture - Pending Blood - Right Hand Imaging and Cardiology Chest x-ray: Status: image reviewed by me (Chest x-ray from her outlying hospital showed no acute infiltrates. Her repeated chest x-ray post line insertion showed left basilar haziness with possible left lower lobe infiltrate/effusion.) EKG: Status: image reviewed by me (EKG from ER with A-fib with rapid ventricular rate with a relatively narrow QRS complex and her most recent EKG with junctional bradycardia with a wider QRS complex.) Assessment/Plan (1) Sepsis: Plan: With severe hypotension requiring norepinephrine drip despite appropriate IV fluids. Likely with a cardiac component of her hypotension given her bradycardia and junctional rhythm. Her urinalysis from the outside hospital was reported as abnormal. Will continue with broad-spectrum antibiotics coverage pending culture results. Will place central line for pressors infusion. (2) Atrial fibrillation: Plan: Presented with A-fib with rapid ventricular rate. Noted to have A-fib at baseline. Now with bradycardia and junctional rhythm. Will hold her Cardizem. Cardiology is on board. (3) COVID-19: Plan: Tested positive for COVID but no hypoxia at this point. Will hold off on remdesivir and steroids but consider adding dexamethasone if becomes hypoxic. (4) Acute kidney injury: Plan: Likely secondary to hypotension and intravascular depletion from sepsis. And improved with IV fluids. (5) Bradycardia: Plan: As above. Cardiology is on board. (6) Elevated troponin: Plan: Cardiology is on board. Awaiting further input. (7) Hyponatremia: Plan: Continue with normal saline and monitor her electrolytes closely. Plan Critical care time was 33 minutes excluding the time needed for central line placement Documented By: Kris Everett MD 06/12/241123 Signed By: 06/12/24 1134 [facility]02-02-2025 [place] [address] Pulmonology Procedure Note Signed Patient: Lyric Juarez MR#: [id number] : 1945 Acct:[id number] Age/Sex: 78 / F Adm Date: 5 Loc: Room: [address] [place] [address] Type: ADM IN Attending Dr: Dedrick Bella DO Copies to: MD Felipe Monzon MD Shawn J Warner, DO~ Pulmonary Procedures DATE OF PROCEDURE: 06/12/24 INDICATION: Sepsis and requiring pressors POST-OP DIAGNOSIS: Sepsis CONSENT: received/signed TIME OUT PERFORMED: Yes ECDIS N NAVIGATION OPERATOR: Kris Everett MD CENTRAL VENOUS CATHETER Right IJ: PATIENT PLACED ON MONITOR/PULSE OX: Yes PROVIDER PREP: mask, gown, sterile gloves and hat CENTRAL LINE PREP: Chlorhexidine scrub and sterile drapes applied ANESTHETIC USED: lidocaine 1% AMOUNT OF ANESTHETIC USED (mL): 5 ULTRASOUND USED FOR PLACEMENT: Yes CENTRAL LINE LUMEN/TYPE INSERTED: quad TECHNIQUE: Colleendinger COMPLICATIONS: none POST PROCEDURE: sutured in place, good blood return, all ports aspirated, flushed, capped and sterile dressing applied POST PROCEDURE X-RAY: tip of catheter in good position, no pneumothorax seen and other PATIENT TOLERATED PROCEDURE: well and no complications Documented By: Kris Everett MD 06/12/241122 Signed By: 06/12/24 1124 [facility]02-02-2025 [place] [address] Hospitalist Progress Note Signed Patient: Lyric Juarez MR#: [id number] : 1945 Acct:[id number] Age/Sex: 78 / F Adm Date: 5 Loc: Room: [address] [place] [address] Type: ADM IN Attending Dr: Dedrick Bella DO Copies to: ~ Date of Service: 06/12/2024 Subjective Subjective Narrative: Evaluated this morning during echocardiogram, ultrasound was corroborated. Patient continues not having any chest pain he states he went to emergency room because she was weak and fell at home. She denies hitting her head. She has had atrial fibrillation for some time now but denies any history of coronary artery disease. Exam Physical Exam Vital Signs: Temp Pulse Resp BP Pulse Ox O2 Del Method O2 Flow Rate 97.6 F 46 L 24 92/52 L 94 L Nasal Cannula 2 06/11/24 22:45 06/12/24 06:56 06/12/24 06:00 06/12/24 06:56 06/12/24 06:00 06/12/24 06:00 06/12/24 06:00 Narrative: General: Awake alert, no acute distress HEENT: head atraumatic, normocephalic, moist mucous membranes Neck: supple no masses, no lymphadenopathy CVS: Decreased rate, regular rhythm, no murmurs or gallops Respiratory: clear to auscultation bilaterally, no wheezing or crackles, symmetric expansion GI: soft, nondistended, nontender, positive bowel sounds with no organomegaly Extremity: moves all extremities, no restrictions of movements, no calf tenderness, no edema Neuro: AOx3, CN II-VII intact. Moves all extremities in all planes of motion. Skin: dry, intact no rashes or lesions Objective Lab Results 06/12/24 05:57 06/12/24 05:57 ABG Interpretation ABG results: 06/12/24 04:00 ABG pH 7.38 ABG pCO2 24.4 L* ABG pO2 105.0 H ABG HCO3 14.2 L ABG Total CO2 15.0 L ABG O2 Saturation 97.5 ABG O2 Content 7.7 ABG Base Excess -9.1 L Meds Allergies and Active Meds Allergies flecainide Allergy (Unknown, Verified 05/17/24 08:07) Hives Active Meds: Active Medications Generic Name Dose Route Start Last Admin Trade Name Freq PRN Reason Stop Dose Admin Acetaminophen 650 mg 06/12/24 00:34 Acetaminophen 325 Mg Tablet PO 06/12/25 00:33 Q6HR PRN Pain Scale 1 - 3 or fever Aspirin 81 mg 06/12/24 10:00 06/12/24 10:47 Aspirin 81 Mg Tab.Chew PO 06/12/25 09:59 81 mg DAILY ERNESTINA Administration Atorvastatin Calcium 40 mg 06/12/24 21:00 Atorvastatin 40 Mg Tablet PO 06/12/25 20:59 QPM ERNESTINA Dextrose 0 gm 06/12/24 00:40 Dextrose 50% In Water 25 Gm/50 Ml Syringe IV-PUSH 06/12/25 00:39 PRN PRN Hypoglycemia Dorzolamide HCl 1 drops 06/12/24 09:00 06/12/24 09:38 Dorzolamide 2% Op Soln 200 Drops/10 Ml Bottle EYE-BOTH 06/12/25 08:59 1 drops DAILY ERNESTINA Administration Glucose 0 gm 06/12/24 00:40 Dextrose 40% Gel 15 Gm Tube PO 06/12/25 00:39 PRN PRN Hypoglycemia Heparin Sodium (Porcine) 2,000 unit 06/12/24 09:21 Heparin *Protocol Bolus* 5,000 Unit/Ml Vial IV-PUSH 06/12/25 09:20 PROTOCOL PRN Anti-Xa < 0.1 or aPTT < 40 Magnesium Sulfate 2 gm in 50 mls @ 25 mls/hr 06/12/24 00:34 Magnesium Sulf 2gm-*Swfi* IV 06/12/25 00:33 DAILY PRN Magnesium Level < 1.5 Sodium Chloride 1,000 mls @ 75 mls/hr 06/12/24 01:45 06/12/24 01:43 0.9% Sodium Chloride 1,000 Ml IV 06/12/24 15:04 75 mls/hr .[id number] ERNESTINA Administration Norepinephrine Bitartrate 16 mg in 250 mls @ 4.688 mls/hr 06/12/24 05:00 06/12/24 06:56 Levophed IV 06/12/25 04:59 5 mcg/min .Q24H ERNESTINA 4.69 mls/hr Administration Protocol 5 MCG/MIN Vancomycin HCl 1.25 gm/ 275 mls @ 183.333 mls/hr 06/13/24 06:30 Dextrose IV 06/13/25 06:29 Q24H ERNESTINA Heparin Sodium/Sodium Chloride 25,000 unit in 250 mls @ 9.96 mls/hr 06/12/24 10:00 06/12/24 10:46 Heparin IV 06/12/25 09:59 12 unit/kg/hr .Q24H ERNESTINA 9.96 mls/hr Administration Protocol 12 UNIT/KG/HR Piperacillin Sod/Tazobactam Sod 4.5 gm in 100 mls @ 25 mls/hr 06/12/24 14:00 Zosyn IV Q8H [facility] Insulin Aspart 0 units 06/12/24 08:00 06/12/24 09:38 Insulin Aspart 300 Units/3 Ml SUBCUT 06/12/25 07:59 3 units TID.WM.HS ERNESTINA Administration Protocol Miscellaneous Information 1 each 06/12/24 09:21 Consult To Pharmacy MISCELLANE 06/12/25 09:20 .PHACONSULT PRN ZZ.Pharmacy Consult Protocol Ondansetron HCl 4 mg 06/12/24 00:34 06/12/24 02:39 Ondansetron 4 Mg/2 Ml Vial IV-PUSH 06/12/25 00:33 4 mg Q8H PRN Administration Nausea And Vomiting Potassium Chloride 20 meq 06/12/24 00:34 Potassium Chloride Er 20 Meq Tab.Er.Prt PO 06/12/25 00:33 DAILY PRN Hypokalemia Potassium Chloride 40 meq 06/12/24 00:34 Potassium Chloride Er 20 Meq Tab.Er.Prt PO 06/12/25 00:33 DAILY PRN Hypokalemia Timolol Maleate 1 drops 06/12/24 09:00 06/12/24 09:38 Timolol Mal 0.5% Op Soln 100 Drops/5 Ml Bottle EYE-BOTH 06/12/25 08:59 1 drops DAILY ERNESTINA Administration Vancomycin HCl 1 each 06/12/24 05:02 Vancomycin - Pharmacy Dosing 1 Each Miscell IV ONCE PRN ZZ.Pharmacy Consult Protocol A&P - Hospitalist Assessment/Plan (1) Atrial fibrillation: (2) COVID-19: (3) Sepsis: (4) UTI (urinary tract infection): (5) Acute kidney injury: (6) Hyponatremia: (7) Hypotension: (8) Bradycardia: (9) Elevated troponin: (10) Hypomagnesemia: (11) Hypokalemia: Plan Severe Sepsis UTI lactic acidosis pt became hypotensive -> started levophed and transferred to ICU Continue zosyn/vancomycin empirically obtain blood cultures x2 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 repeat pending Hyponatremia hold thiazide IV volume resuscitation with normal saline repeat BMP in am fluid restriction 1500 ml Serum osmolality low at 271, urine osmolality urine sodium levels pending DM2- accucheck ac/hs, SSI, hypoglycemia protocol. hold oral hypoglycemic meds FULL CODE DVT prophylaxis addressed with warfarin and she is now on heparin gtt. ? N.p.o. pending cardiology valuation Documented By: Dedrick Bella DO 06/12/24 1051 Signed By: 06/12/24 1055 [facility]02-02-2025 History and physical note Author Thang Ruth [facility] Note Date/Time June 12, 2024 6 :02am [facility] [address] [place] [address] Hospitalist H&P Signed Patient: Lyric Juarez MR#: [id number] : 1945 Acct:[id number] Age/Sex: 78 / F Adm Date: 5 Loc: Room: [address] [place] [address] Type: ADM IN Attending Dr: Dedrick Bella DO Copies to: MD Felipe Ortiz MD Shawn J Warner, DO~ HPI DATE OF EXAMINATION: 06/11/24 CHIEF COMPLAINT: fall HISTORY OF PRESENT ILLNESS: 78 year old woman with history of atrial fibrillaion, HTN, DM2, CKD3, and dyslipidemia who presented to [place] ED after a fall According to the patient she had been feeling increasingly generally weak over the preceding 24 hours but denied any chest pain dyspnea fever chills nausea vomiting diarrhea cough or hemoptysis Patient reports she was walking to the restroom when her legs suddenly became weak and she fell. there was no antecedent lightheadedness or presyncope, no head trauma or loss of consciousness Pt presented to [place] ED for evaluation, vital signs on arrival T 100.1 P 131R 18 BP 113/86 SaO2 95% on RA. ECG with atrial fibrillation with rapid ventricular response. Pt recieved 2L normal saline with improvement in heart rate to the 90s pt tested positive for COVID-19. CXR and CT head were unremarkable. labs notable for sodium 123, serum creatinine 1.43, lactate 2.8 -> 1.3, WBC 11.7k, INR 2.0. UA with 5-10 WBC/hpf. Troponin 544 -> 3123. Pt was also given 2g magnesium sulfate, ASA, 1gram ceftriaxone, additional 1L normal saline at 200 ml/hr. she was transferred here for further eval. On arrival here, pt was lucid and in good spirits, with no complaints, vitals stable with HR in the 80s, blood pressure also WNL. around 0230 i was called by RN after pt attempted to get up to use the restroom- she became poorly responsive and began to fall- she was helped back onto the bed by nursing staff. pt was briefly unresponsive but regained consciousness. initially unable to obtain blood pressure, given 500ml NS, inital blood [id number]. received 2L normal saline without improvement in blood pressure. duringthis time pt also became bradycardic. ABG 7.38/24/105 blood pressure improved to low 70s systolic. decision made to start levophed and transfer to ICU. pt is somewhat drowsy but keenly responsive and continues to deny complaints ROS 10 systems reviewed and were negative except as noted in the [facility] Medical History Type 2 diabetes mellitus with hyperglycemia Paroxysmal atrial fibrillation (09/20/15) Other specified anxiety disorders (02/05/18) Hyperlipidemia, unspecified (09/20/15) History of falling Essential (primary) hypertension Erythrasma (11/09/17) Surgical History History of cholecystectomy Family History Father Mother Social History Smoking Status: Never smoker Substance Use Type: None Meds Medications and Allergies Allergies flecainide Allergy (Unknown, Verified 05/17/24 08:07) Hives Home Medications chlorthalidone 25 mg tablet 25 mg PO DAILY 04/19/24 [History Confirmed 06/11/24] diltiazem HCl 300 mg capsule,extended release 24 hr 300 mg PO DAILY 04/19/24 [History Confirmed 06/11/24] lancets 30 gauge (OneTouch Delica Plus Lancet) #100 ea 04/19/24 [History Confirmed 05/17/24] lisinopril 10 mg tablet 10 mg PO DAILY 04/19/24 [History Confirmed 06/11/24] potassium chloride 20 mEq tablet,extended release(part/cryst) (Klor-Con M) 20 meq PO DAILY 04/19/24 [History Confirmed 06/11/24] pravastatin 40 mg tablet 40 mg PO QHS 04/19/24 [History Confirmed 06/11/24] warfarin 2.5 mg tablet 2.5 mg PO DAILY 04/19/24 [History Confirmed 06/11/24] cholecalciferol (vitamin D3) 25 mcg (1,000 unit) capsule 25 mcg PO DAILY 04/20/24 [History Confirmed 06/11/24] metformin 500 mg tablet,extended release 24 hr 500 mg PO DAILY #30 tabs 05/17/24[Rx Confirmed 06/11/24] blood sugar diagnostic ([employer] Verio test strips) #100 strips 06/01/24 [Rx] dorzolamide-timolol (PF) 2 %-0.5 % eye drops in a dropperette 1 drp Eye-Both DAILY 06/11/24 [History Confirmed 06/11/24] Exam Physical Exam Vital Signs: Temp Pulse Resp BP Pulse Ox O2 Del Method 97.6 F 42 L 18 71/44 L 95 Room Air 06/11/24 22:45 06/12/24 04:55 06/11/24 22:45 06/12/24 04:55 06/11/24 22:45 06/11/24 23:16 Const General: cooperative, no acute distress and well developed HEENT Head: normal to inspection Ears: external ears normal Nose: external nose normal Face and sinus: normal facial exam Mouth: oral mucosae normal Throat: posterior oropharynx normal Eyes General: appearance normal, both eyes and all related structures Visual Vail: normal visual vail by confrontation Sclera: sclerae normal Pupils: PERRL and accommodation normal Neck Neck: normal visual inspection, no lymphadenopathy and supple Thyroid: thyroid normal Lymphatic: no lymphadenopathy noted Chest Chest palpation & inspection: normal inspection of the chest Resp Effort & Inspection: normal respiratory effort, able to speak in complete sentences and symmetric chest movement Auscultation: clear to auscultation bilaterally Cardio Palpation: normal PMI Rate: regular rate Rhythm: regular rhythm Heart Sounds: S1 normal and S2 normal GI Inspection: normal to inspection Palpation: soft Auscultation: normal bowel sounds General: bladder normal to palpation Bimanual Exam- Vagina & Uterus: bladder normal to palpation Musc Cervical Spine: cervical ROM normal Thoracic/Lumbar Spine: thoracic and lumbar spine normal to inspection Skin General: no rashes or lesions noted and turgor normal Neuro General: patient alert, patient awake and patient oriented x3 Speech: speech normal Extrem General: normal to inspection and full ROM Psych Appearance: grossly normal Mental Status: mental status grossly normal Affect: normal affect Speech and Movement: speech and movement normal Attitude: cooperative Results - Hospitalist H&P Lab Results Labs: Laboratory Last Values Sample Site Right radial 06/12/24 04:00 ABG pH 7.38 (7.35-7.45) 02/02/25 04:00 ABG pCO2 24.4 mmHg (35.0-45.0) L* 06/12/24 04:00 ABG pO2 105.0 mmHg (80.0-100.0) H 06/12/24 04:00 ABG HCO3 14.2 mmol/L (23.0-29.0) L 06/12/24 04:00 ABG Total CO2 15.0 mmol/L (23.0-27.0) L 06/12/24 04:00 ABG O2 Saturation 97.5 % (95.0-100.0) 06/12/24 04:00 ABG O2 Content 7.7 mmol/L (6.6-9.7) 06/12/24 04:00 ABG Base Excess -9.1 mmol/L (-3.0-3.0) L 06/12/24 04:00 O2 Delivery Device Nasal cannula 06/12/24 04:00 Liter Flow 2 L/min 06/12/24 04:00 FiO2 28 % 06/12/24 04:00 Critical Value 06/12/24 04:00 PHA Creatinine Clear 50.34 06/12/24 00:57 Sodium 124 mmol/L (136-145) L* 06/12/24 00:57 Potassium 3.2 mmol/L (3.5-5.1) L 06/12/24 00:57 Chloride 92 mmol/L (98-107) L 06/12/24 00:57 Carbon Dioxide 19.8 mmol/L (21.0-31.0) L 06/12/24 00:57 Anion Gap 15.4 mEq/L (6.0-15.0) H 06/12/24 00:57 BUN 20 mg/dL (7-25) 06/12/24 00:57 Creatinine 0.98 mg/dL (0.60-1.20) 06/12/24 00:57 Est GFR (CKD-EPI) 59.079 mL/Min 06/12/24 00:57 Glucose 164 mg/dL (70-100) H 06/12/24 00:57 POC Glucose 180 mg/dl 06/12/24 02:43 Osmolality 271 mOsm (278-305) L 06/12/24 04:03 Calcium 8.1 mg/dL (8.6-10.3) L 06/12/24 00:57 Phosphorus 4.1 mg/dL (2.5-4.5) 06/12/24 04:03 Magnesium 1.6 mg/dL (1.9-2.7) L 06/12/24 04:03 Total Bilirubin 0.5 mg/dl (0.3-1.0) 06/12/24 00:57 AST 76 U/L (13-39) H 06/12/24 00:57 ALT 29 U/L (7-52) 06/12/24 00:57 Alkaline Phosphatase 59 U/L (34-104) 06/12/24 00:57 Troponin I [place] Sens 27310 ng/L (0-15) H* 06/12/24 00:57 Total Protein 6.2 gm/dL (6.4-8.9) L 06/12/24 00:57 Albumin 3.8 gm/dL (3.5-5.7) 06/12/24 00:57 Globulin 2.4 gm/dL 06/12/24 00:57 Albumin/Globulin Ratio 1.6 06/12/24 00:57 ABG Interpretation ABG results: 06/12/24 04:00 ABG pH 7.38 ABG pCO2 24.4 L* ABG pO2 105.0 H ABG HCO3 14.2 L ABG Total CO2 15.0 L ABG O2 Saturation 97.5 ABG O2 Content 7.7 ABG Base Excess -9.1 L Assessment & Plan Assessment/Plan (1) Atrial fibrillation: (2) COVID-19: (3) Sepsis: (4) UTI (urinary tract infection): (5) Acute kidney injury: (6) Hyponatremia: (7) Hypotension: (8) Bradycardia: (9) Elevated troponin: (10) Hypomagnesemia: (11) Hypokalemia: Plan Severe Sepsis UTI lactic acidosis - pt had UA with 5-10 WBCs at [place]- given ceftriaxone - pt met 3/4 SIRS criteria on arrival to [facility]- now hypotensive with concern for severe sepsis/shock, ?alternative source - CXR negative at [facility] pt became hypotensive -> started levophed and transferred to ICU start broad spectrum abx -> zosyn/vancomycin empirically obtain blood cultures x2 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 repeat pending Hyponatremia - likely hypovolemic, + thiazide related hold thiazide IV volume resuscitation with normal saline repeat BMP in am fluid restriction 1500 ml check uosm and posm - pending DM2- accucheck ac/hs, SSI, hypoglycemia protocol. hold oral hypoglycemic meds FULL CODE Note I spent 60 minutes critical care time evaluating/treating patient's condition, frequent reevaluation IP vs OBS Justification Based on differential dx, clinical care plan, and risk of adverse events, if untreated, in my clinical judgement this patient requires an acute care setting as: INPATIENT because of an expectation of an over 2 midnight stay. Estimated length of stay (# of days): 5 Critical Care Time: 60 Documented By: Thang Ruth MD 06/12/24 0521 Signed By: <Electronically signed by Thang Ruth MD> 06/12/24 0602 [facility] Work Phone: 1(648) 706-717702-02-2025 [place] [address] Hospitalist H&P Signed Patient: Lyric Juarez MR#: [id number] : 1945 Acct:[id number] Age/Sex: 78 / F Adm Date: 5 Loc: Room: [address] [place] [address] Type: ADM IN Attending Dr: Dedrick Bella DO Copies to: MD Felipe Ortiz MD Shawn J Warner, DO~ HPI DATE OF EXAMINATION: 06/11/24 CHIEF COMPLAINT: fall HISTORY OF PRESENT ILLNESS: 78 year old woman with history of atrial fibrillaion, HTN, DM2, CKD3, and dyslipidemia who presented to [place] ED after a fall According to the patient she had been feeling increasingly generally weak over the preceding 24 hours but denied any chest pain dyspnea fever chills nausea vomiting diarrhea cough or hemoptysis Patient reports she was walking to the restroom when her legs suddenly became weak and she fell. there was no antecedent lightheadedness or presyncope, no head trauma or loss of consciousness Pt presented to [place] ED for evaluation, vital signs on arrival T 100.1 P 131R 18 BP 113/86 [id number]% on RA. ECG with atrial fibrillation with rapid ventricular response. Pt recieved 2L normal saline with improvement in heart rate to the 90s pt tested positive for COVID-19. CXR and CT head were unremarkable. labs notable for sodium 123, serum creatinine 1.43, lactate 2.8 -> 1.3, WBC 11.7k, INR 2.0. UA with 5-10 WBC/hpf. Troponin 544 -> 3123. Pt was also given 2g magnesium sulfate, ASA, 1gram ceftriaxone, additional 1L normal saline at 200 ml/hr. she was transferred here for further eval. On arrival here, pt was lucid and in good spirits, with no complaints, vitals stable with HR in the80s, blood pressure also WNL. around 0230 i was called by RN after pt attempted to get up to use the restroom- she became poorly responsive and began to fall- she was helped back onto the bed by nursing staff. pt was briefly unresponsive but regained consciousness. initially unable to obtain blood pressure, given 500ml NS, inital blood [id number]/43. received 2L normal saline without improvement in blood pressure. duringthis time pt also became bradycardic. ABG 7.38/24/105 blood pressure improved to low 70s systolic. decision made to start levophed and transfer to ICU. pt is somewhat drowsy but keenly responsive and continues to deny complaints ROS 10 systems reviewed and were negative except as noted in the [facility] Medical History Type 2 diabetes mellitus with hyperglycemia Paroxysmal atrial fibrillation (09/20/15) Other specified anxiety disorders (02/05/18) Hyperlipidemia, unspecified (09/20/15) History of falling Essential (primary) hypertension Erythrasma (11/09/17) Surgical History History of cholecystectomy Family History Father Mother Social History Smoking Status: Never smoker Substance Use Type: None Meds Medications and Allergies Allergies flecainide Allergy (Unknown, Verified 05/17/24 08:07) Hives Home Medications chlorthalidone 25 mg tablet 25 mg PO DAILY 04/19/24 [History Confirmed 06/11/24] diltiazem HCl 300 mg capsule,extended release 24 hr 300 mg PO DAILY 04/19/24 [History Confirmed 06/11/24] lancets 30 gauge (PayBy[employer]Touch Delica Plus Lancet) #100 ea 04/19/24 [History Confirmed 05/17/24] lisinopril 10 mg tablet 10 mg PO DAILY 04/19/24 [History Confirmed 06/11/24] potassium chloride 20 mEq tablet,extended release(part/cryst) (Klor-Con M) 20 meq PO DAILY 04/19/24[History Confirmed 06/11/24] pravastatin 40 mg tablet 40 mg PO QHS 04/19/24 [History Confirmed 06/11/24] warfarin 2.5 mg tablet 2.5 mg PO DAILY 04/19/24 [History Confirmed 06/11/24] cholecalciferol (vitamin D3) 25 mcg (1,000 unit) capsule 25 mcg PO DAILY 04/20/24 [History Confirmed 06/11/24] metformin 500 mg tablet,extended release 24 hr 500 mg PO DAILY #30 tabs 05/17/24[Rx Confirmed 06/11/24] blood sugar diagnostic ([employer] Verio test strips) #100 strips 06/01/24 [Rx] dorzolamide-timolol (PF) 2 %-0.5 % eye drops in a dropperette 1 drp Eye-Both DAILY 06/11/24 [History Confirmed 06/11/24] Exam Physical Exam Vital Signs: Temp Pulse Resp BP Pulse Ox O2 Del Method 97.6 F 42 L 18 71/44 L 95 Room Air 06/11/24 22:45 06/12/24 04:55 06/11/24 22:45 06/12/24 04:55 06/11/24 22:45 06/11/24 23:16 Const General: cooperative, no acute distress and well developed HEENT Head: normal to inspection Ears: external ears normal Nose: external nose normal Face and sinus: normal facial exam Mouth: oral mucosae normal Throat: posterior oropharynx normal Eyes General: appearance normal, both eyes and all related structures Visual Vail: normal visual vail by confrontation Sclera: sclerae normal Pupils: PERRL and accommodation normal Neck Neck: normal visual inspection, no lymphadenopathy and supple Thyroid: thyroid normal Lymphatic: no lymphadenopathy noted Chest Chest palpation & inspection: normal inspection of the chest Resp Effort & Inspection: normal respiratory effort, able to speak in complete sentences and symmetric chest movement Auscultation: clear to auscultation bilaterally Cardio Palpation: normal PMI Rate: regular rate Rhythm: regular rhythm Heart Sounds: S1 normal and S2 normal GI Inspection: normal to inspection Palpation: soft Auscultation: normal bowel sounds General: bladder normal to palpation Bimanual Exam- Vagina & Uterus: bladder normal to palpation Musc Cervical Spine: cervical ROM normal Thoracic/Lumbar Spine: thoracic and lumbar spine normal to inspection Skin General: no rashes or lesions noted and turgor normal Neuro General: patient alert, patient awake and patient oriented x3 Speech: speech normal Extrem General: normal to inspection and full ROM Psych Appearance: grossly normal Mental Status: mental status grossly normal Affect: normal affect Speech and Movement: speech and movement normal Attitude: cooperative Results - Hospitalist H&P Lab Results Labs: Laboratory Last Values Sample Site Right radial 06/12/24 04:00 ABG pH 7.38 (7.35-7.45) 06/12/24 04:00 ABG pCO2 24.4 mmHg (35.0-45.0) L* 06/12/24 04:00 ABG pO2 105.0 mmHg (80.0-100.0) H 06/12/24 04:00 ABG HCO3 14.2 mmol/L (23.0-29.0) L 06/12/24 04:00 ABG Total CO2 15.0 mmol/L (23.0-27.0) L 06/12/24 04:00 ABG O2 Saturation 97.5 % (95.0-100.0) 06/12/24 04:00 ABG O2 Content 7.7 mmol/L (6.6-9.7) 06/12/24 04:00 ABG Base Excess -9.1 mmol/L (-3.0-3.0) L 06/12/24 04:00 O2 Delivery Device Nasal cannula 06/12/24 04:00 Liter Flow 2 L/min 06/12/24 04:00 FiO2 28 % 06/12/24 04:00 Critical Value 06/12/24 04:00 PHA Creatinine Clear 50.34 06/12/24 00:57 Sodium 124 mmol/L (136-145) L* 06/12/24 00:57 Potassium 3.2 mmol/L (3.5-5.1) L 06/12/24 00:57 Chloride 92 mmol/L (98-107) L 06/12/24 00:57 Carbon Dioxide 19.8 mmol/L (21.0-31.0) L 06/12/24 00:57 Anion Gap 15.4 mEq/L (6.0-15.0) H 06/12/24 00:57 BUN 20 mg/dL (7-25) 06/12/24 00:57 Creatinine 0.98 mg/dL (0.60-1.20) 06/12/24 00:57 Est GFR (CKD-EPI) 59.079 mL/Min 06/12/24 00:57 Glucose 164 mg/dL (70-100) H 06/12/24 00:57 POC Glucose 180 mg/dl 06/12/24 02:43 Osmolality 271 mOsm (278-305) L 06/12/24 04:03 Calcium 8.1 mg/dL (8.6-10.3) L 06/12/24 00:57 Phosphorus 4.1 mg/dL (2.5-4.5) 06/12/24 04:03 Magnesium 1.6 mg/dL (1.9-2.7) L 06/12/24 04:03 Total Bilirubin 0.5 mg/dl (0.3-1.0) 06/12/24 00:57 AST 76 U/L (13-39) H 06/12/24 00:57 ALT 29 U/L (7-52) 06/12/24 00:57 Alkaline Phosphatase 59 U/L (34-104) 06/12/24 00:57 Troponin I High Sens 36105 ng/L (0-15) H* 06/12/24 00:57 Total Protein 6.2 gm/dL (6.4-8.9) L 06/12/24 00:57 Albumin 3.8 gm/dL (3.5-5.7) 06/12/24 00:57 Globulin 2.4 gm/dL 06/12/24 00:57 Albumin/Globulin Ratio 1.6 06/12/24 00:57 ABG Interpretation ABG results: 06/12/24 04:00 ABG pH 7.38 ABG pCO2 24.4 L* ABG pO2 105.0 H ABG HCO3 14.2 L ABG Total CO2 15.0 L ABG O2 Saturation 97.5 ABG O2 Content 7.7 ABG Base Excess -9.1 L Assessment & Plan Assessment/Plan (1) Atrial fibrillation: (2) COVID-19: (3) Sepsis: (4) UTI (urinary tract infection): (5) Acute kidney injury: (6) Hyponatremia: (7) Hypotension: (8) Bradycardia: (9) Elevated troponin: (10) Hypomagnesemia: (11) Hypokalemia: Plan Severe Sepsis UTI lactic acidosis - pt had UA with 5-10 WBCs at [place]- given ceftriaxone - pt met 3/4 SIRS criteria on arrival to [facility]- now hypotensive with concern for severe sepsis/shock, ?alternative source - CXR negative at [facility] pt became hypotensive -> started levophed and transferred to ICU start broad spectrum abx -> zosyn/vancomycin empirically obtain blood cultures x2 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 repeat pending Hyponatremia - likely hypovolemic, + thiazide related hold thiazide IV volume resuscitation with normal saline repeat BMP in am fluid restriction 1500 ml check uosm and posm - pending DM2- accucheck ac/hs, SSI, hypoglycemia protocol. hold oral hypoglycemic meds FULL CODE Note I spent 60 minutes critical care time evaluating/treating patient's condition, frequent reevaluation IP vs OBS Justification Based on differential dx, clinical care plan, and risk of adverse events, if untreated, in my clinical judgement this patient requires an acute care setting as: INPATIENT because of an expectation ofan over 2 midnight stay. Estimated length of stay (# of days): 5 Critical Care Time: 60 Documented By: Thang Ruth MD 06/12/24 0521 Signed By: 06/12/24 0602 [facility]01-08-2025 NoteRight Eye Reliability was good. Progression has been stable. Foveal threshold was normal. Findings include normal observations. Left Eye Reliability was borderline. Progression has been stable. Foveal threshold was normal. Findings include non-specific defects, generalized depression. [facility] [id number] History of Present illness Narrative* Chi Lunsford, DO - 05/18/2024 9:30 AM EST Images from the original note were not [...] yearly dilated examinations, but to contact us i mmediately for any problems or concerns. Rce (recurrent [...] left eye (OS) daily documented in this encounterKindred [id number] History of Present illness Narrative* Frandy Cabrera MD - 05/16/2024 1:00 PM EST Subjective Lyric Juarez is a 78 y.o. female Chief Complaint Follow-up HPI 78-year-old white female who has previously followed with Dr. Lopez for permanent atrial fibrillation. She has been [...] The patient has no discussion about these findingswith her PCP. Her vitamin D level also came back at 31 which has been in the lower normal range. She denies any palpitations or dyspnea. She has had no bleeding complications. She had normal nuclear stress test in 2013. There has been no echocardiogram on file. Assessment/recommendations: 1-permanent atrial fibrillation, she is on diltiazem 30 mg daily. She is asymptomatic and continueson Coumadin therapy managed by the Coumadin clinic. [...] is not on medical therapy. Advised patient discusswith her PCP starting medical therapy such as metformin. Low-calorie diet and more weight loss and exercise was recommended 4-high risk medication with Coumadin without any bleeding complications 5-dyslipidemia on pravastatin 40 mg daily, LDL cholesterol 110 mg/dL April 2024. 6- stage IIIa chronic kidney disease, GFR 56 mL/min. The pathophysiology of this was discussed withthe patient, more aggressive treatment of diabetes and hypertension was recommended 7-vitamin D deficiency, encouraged the patient double the amount of vitamin D 3 up to 2000 unit daily 8-significant microalbuminuria, the patient was advised to discuss with her PCP the measures neededto control this problem 9-overweight, encouraged the patient [...] TABLET BY MOUTH DAILY OR DIRECTED BY [facility] (Patient taking differently: [facility]), Disp: 90 tablet, Rfl: 1 [...] direction and in the presence of Frandy Cabrera MD. Provider Attestation - Scribe documentation All medical record entries made by the Scribe were at my direction and personally dictated by me. Komal reviewed the chart and agree that the record accurately reflects my personal performance of the history, physical exam, discussion and plan. documented in this [facility] Work Phone: 1(637) 481-498901-06-2025 Instructions* Patient Instructions* Mirna Buckley RN - 05/16/2024 1:00 PM [...] cuff when you come to next visit * Attachments The following attachments cannot be sent through Care Everywhere. * DASH Diet (Polish) documented in this [facility] Work Phone: 1(453) 442-995912-11-2024 Evaluation note* Diagnosis Onset Date Resolution Status Admit Date Essential (primary) hypertension acute April 20 10:19am Hyperlipidemia, unspecified September 20, 2015 acut e April 20, 2024 10:19am Medicare annual wellness visit, subsequent acute April 20, 2024 10:19am Paroxysmal atrial fibrillation September 20, 2015 acute April 20 10:19am Screening mammogram for breast cancer acute April 20 10:19am Type 2 diabetes mellitus wit h hyperglycemia acute April 20 10:19am Vitamin D deficiency acute Dece mber 2023 10:19am CKD stage 3a, GFR 45-59 ml/min acute May 17 8:41am Type 2 diabetes mellitus wit h hyperglycemia acute May 17 8:41am [facility] Work Phone: 1(483) 381-774212-11-2024 Evaluation note* Diagnosis Onset Date Resolution Status Admit Date Essential (primary) hypertension acute April 20 10:19am Hyperlipidemia, unspecified September 20, 2015 acut e April 20, 2024 10:19am Medicare annual wellness visit, subsequent acute April 20, 2024 10:19am Paroxysmal atrial fibrillation September 20, 2015 acute April 20 10:19am Screening mammogram for breast cancer acute April 20 10:19am Type 2 diabetes mellitus wit h hyperglycemia acute April 20 10:19am Vitamin D deficiency acute Dece mber 2023 10:19am CKD stage 3a, GFR 45-59 ml/min acute May 17 8:41am Type 2 diabetes mellitus wit h hyperglycemia acute May 17 8:41am 3-vessel coronary artery disease acute June 11 10:40pm Acute kidney injury acute 2024 10:40pm Acute kidney injury superimposed on CKD acute June 10:40pm Atrial fibrillation acute 2024 10:40pm Bradycardia acute June 11, 2024 10:40pm CKD stage 3a, GFR 45-59 ml/min acute June 11 10:40pm COVID-19 acute June 11, 2024 10:40pm Critical illness myopathy acute June 11, 2024 10:40pm Dyslipidemia acute June 10:40pm Elevated liver transaminase level acute June 11 10:40pm Elevated troponin acute 2024 10:40pm Essential hypertension acute Fe 2024 10:40pm Hyperlipidemia, unspecified September 20, 2015 acut e June 11, 2024 10:40pm Hypokalemia acute June 11, 2024 10:40pm Hypomagnesemia acute June 112024 10:40pm Hyponatremia acute June 10:40pm Hypotension acute June 11, 2024 10:40pm Impaired mobility and activities of daily living acute 2024 10:40pm Left ventricular systolic dysfunction acute June 11 10:40pm Liver failure acute June 10:40pm Multisystem organ failure acute June 11, 2024 10:40pm Non-ST elevation (NSTEMI) myocardial infarction acute June 112024 10:40pm Permanent atrial fibrillation acute June 11, 2024 10:40pm Respiratory failure acute u 2024 10:40pm Sepsis acute June 11, 2024 10:40pm Type 2 diabetes mellitus wit h hyperglycemia acute June 11 10:40pm UTI (urinary tract infection) acute June 11, 2024 10:40pm Warfarin-induced coagulopathy acute June 11, 2024 10:40pm [facility] Work Phone: 1(953) 888-599112-11-2024 Evaluation note* Diagnosis Onset Date Resolution Status Admit Date Essential (primary) hypertension acute April 20 10:19am Hyperlipidemia, unspecified September 20, 2015 acut e April 20, 2024 10:19am Medicare annual wellness visit, subsequent acute April 20, 2024 10:19am Paroxysmal atrial fibrillation September 20, 2015 a cute April 20, 2024 10:19am Screening mammogram for [facility] cancer acute April 20 10:19am Type 2 diabetes mellitus wit h hyperglycemia acute April 20 10:19am Vitamin D deficiency acute Dece [id number] 10:19am CKD stage 3a, GFR 45-59 ml/min acute May 17, 2024 8:41am Type 2 diabetes mellitus wit h hyperglycemia acute May 17 8:41am 3-vessel coronary artery disease acute June 11 10:40pm Acute kidney injury acute 2024 10:40pm Acute kidney injury superimposed on CKD acute June 10:40pm Atrial fibrillation acute 2024 10:40pm Bradycardia acute June 11, 2024 10:40pm CKD stage 3a, GFR 45-59 ml/min acute June 11, 2024 10:40pm COVID-19 acute June 11, 2024 10:40pm Critical illness myopathy acute June 11, 2024 10:40pm Dyslipidemia acute June 10:40pm Elevated liver transaminase level acute June 11 10:40pm Elevated troponin acute 2024 10:40pm Essential hypertension acute Fe 2024 10:40pm Hyperlipidemia, unspecified September 20, 2015 acut e June 11, 2024 10:40pm Hypokalemia acute June 11, 2024 10:40pm Hypomagnesemia acute June 112024 10:40pm Hyponatremia acute June 10:40pm Hypotension acute June 11, 2024 10:40pm Impaired mobility and activities of daily living acute 2024 10:40pm Left ventricular systolic dysfunction acute June 11 10:40pm Liver failure acute June 10:40pm Multisystem organ failure acute June 11, 2024 10:40pm Non-ST elevation (NSTEMI) myocardial infarction acute June 112024 10:40pm Permanent atrial fibrillation acute June 11, 2024 10:40pm Respiratory failure acute 2024 10:40pm Sepsis acute June 11, 2024 10:40pm Type 2 diabetes mellitus wit h hyperglycemia acute June 11 10:40pm UTI (urinary tract infection) acute June 11, 2024 10:40pm Warfarin-induced coagulopathy acute June 11, 2024 10:40pm 3-vessel coronary artery disease acute June 20 025 5:03pm Atrial fibrillation acute 2024 5:03pm Chronic anticoagulation acute F [id number] 5:03pm COVID-19 acute June 20, 2024 5:03pm Critical illness myopathy acute June 20, 2024 5:03pm Dyslipidemia acute June 5:03pm Elevated liver transaminase level acute June 20 025 5:03pm Essential hypertension acute 2024 5:03pm Hyperlipidemia, unspecified September 20, 2015 acut e June 20, 2024 5:03pm Hyponatremia acute June 5:03pm Impaired mobility and activities of daily living acute 2024 5:03pm Liver failure acute June 202024 5:03pm Multisystem organ failure acute June 20, 2024 5:03pm Paroxysmal atrial fibrillation September 20, 2015 a cute June 20, 2024 5:03pm Respiratory failure acute 2024 5:03pm Sepsis acute June 20, 2024 5:03pm Type 2 diabetes mellitus wit h hyperglycemia acute June 20 2 025 5:03pm [facility] Work Phone: 1(372) 167-736410-21-2024 History of Present illness Narrative* ALEJANDRA Connelly - 02/29/2024 9:00 AM EDT HACK: Pt [...] arise in the interim. documented in this encounterKindred [id number] History of Present illness Narrative* Indra Haynes, BLANQUITA - 01/28/2024 8:40 AM EDT Patient: Lyric Gusman Angel : 1945 PCP: Felipe Johnson MD SUBJECTIVE [...] History: Past Medical History: Diagnosis Date Glaucoma ([facility]) HSV stromal keratitis Hypertension ([facility]) Pre-diabetes Recurrent corneal erosion Medications: Current Outpatient [...] of DSD post procedure. Patient may take bgcp-yjy-nlgcutn NSAID p.r.n. for pain Indra Haynes DPM documented in this encounterKindred [id number] History of Present illness Narrative* Chi Lunsford, - 01/08/2024 10:00 AM EDT Images from [...] left eye (OS) daily documented in this encounterKindred [id number] History of Present illness Narrative* Karson Lopez MD - 09/28/2023 8:40 AM EDT Subjective [...] TABLET BY MOUTH DAILY OR DIRECTED BY [facility], Disp: 90 tablet, Rfl: 1 chlorthalidone [...] signing my name below, I, Maria E MccarthyRohit Ovalles LPN attest that this documentation has been prepared under the direction and in the presence of Ed Lopez MD. Provider Attestation - Scribe documentation All medical record entries made by the Scribe were at my direction and personally dictated by me. Ihave reviewed the chart and agree that the record accurately reflects my personal performance of the history, physical exam, discussion and plan. documented in this [facility] Work Phone: 1(204) 404-411905-20-2024 Instructions* Patient Instructions* Kim Pickett LPN - [...] time of your visit. documented in this [facility] Work Phone: 1(559) 568-756903-10-2021 NoteHNO ID: [id number] Author: Chi Faustin Service: ? Author Type: Physician Type: Progress Notes Filed: 07/18/2020 9:56 AM Note Text: Tmax: 44, 39; Pachy: 489, 574 Lasers and Surgeries: OD: 07/12/[address] [place], place [place] 01/19/20 KIERA exchange for erosion (Avril Michaels) 02/10/18 KIERA IOP=44 ([place]) OS: 05/19/18 KIERA ([place]) for IOP 29 05/19/2018? Express Ocular Medication [...] Chi Faustin MD, July 18, 2020 9:53 AM.[facility]03-05-2021 NoteHNO ID: [id number] Author: Chi Faustin Service: ? Author Type: Physician Type: Progress Notes Filed: 07/13/2020 9:23 AM Note Text: Tmax: 44, 39; Pachy: 489, 574 Lasers and Surgeries: OD: 07/12/[address] [place], place [place] KIER[place] 01/19/20 KIERA exchange for erosion (Avril Michaels) 02/10/18 KIERA IOP=44 ([place]) OS: 05/19/18 KIERA ([place]) for IOP 29 05/19/2018? Express Ocular Medication [...] Chi Faustin MD, July 13, 2020 9:18 AM.[facility]02-24-2021 NoteHNO ID: [id number] Author: Chi Faustin Service: ? Author Type: Physician Type: Progress Notes Filed: 07/04/2020 9:13 AM Note Text: Tmax: 44, 39; Pachy: 489, 574 Lasers and Surgeries: OD: 01/19/20 KIERA exchange for erosion (Avril Michaels) 02/10/18 KIERA IOP=44 ([place]) OS: 05/19/18 KIERA ([place]) for IOP 29 05/19/2018? Express Ocular Medication [...] Coumadin By signing my name below, I, Christina [...] Faustin MD, July 04, 2020 8:58 AM. [facility]02-23-2021 NotePatient Outreach (COVAMN) LYRIC JUAREZ ([id number]) 1945 F Date Time Provider Department 07/03/20 KIMBERLEES, MILKA SANDERS During your visit today, we recorded the following information about you: Allergies As of Date: 07/03/2020 Noted Allergy Reaction FLECAINIDE 01/26/2018 5 - Intolerance Comments: DECREASES HEART RATE, LOW PULSE STEROIDS (BETAMETHASONE DIPROPION*01/26/2018 5 - Intolerance Comments: STEROID RESPONDER. RAISES INTRA OCULAR PRESSURE Date Reviewed: 02/17/2020 Reviewed by: Kaylee Michaels - Fully Assessed Order(s):SARS-COVID VACCINE 1ST DOSE APPT [[id number]] Order #: [id number] FUTURE Prescriptions as of 07/03/2020 Sig: DORZOLAMIDE-TIMOLOL [...] More... Encounter Status:Closed by EPIC, PRODUSER on 07/06/20[facility] Evaluation note* Diagnosis Rce (recurrent corneal erosion), left- Primary [facility] Diagnosis Chronic atrial fibrillation (Multi)- Primary Atrial fibrillation Essential hypertension Unspecified essential hypertension Mixed hyperlipidemia Hyperlipidemia, unspecified documented in this encounter [facility] Work Phone: Evaluation note* Diagnosis Mixed conductive and sensorineural hearing loss of left ear with restricted hearing of right ear- Primary [facility]* Diagnosis Primary open angle glaucoma (POAG) of both eyes, mild stage (CMS/HCC)- Primary Rce (recurrent corneal erosion), left Keratoconjunctivitis sicca of both eyes not specified as Sjogren's Herpes simplex virus (HSV) stromal keratitis Type 2 diabetes mellitus without complication, without long-term current use of insulin (CMS/HCC) [facility]* Diagnosis Verruca plantaris- Primary Plantar [...] venous (peripheral) insufficiency documented [facility]* Diagnosis Permanent atrial fibrillation (Multi)- Primary Atrial fibrillation Essential hypertension Unspecified essential hypertension Hyperlipidemia, unspecified hyperlipidemia type Stage 3a chronic kidney disease (Multi) Palpitations BMI 28.0-28.9,adult Stage 3a chronic kidney disease (CKD) (Multi) Never smoked tobacco Essential (primary) hypertension Unspecified essential hypertension Microalbuminuria Proteinuria documented in this encounter [facility] Work Phone: Evaluation note* Diagnosis Primary open angle glaucoma (POAG) of both eyes, mild stage (CMS/HCC)- Primary Herpes simplex virus (HSV) stromal keratitis Keratoconjunctivitis sicca of both eyes not specified as Sjogren's Type 2 diabetes mellitus without complication, without long-term current use of insulin (CMS/HCC) Rce (recurrent corneal erosion), left documented in this encounter [facility] [...] Fortunately shehas a lot of local family support.-[facility] [employer] DO Work Phone: History of Present illness [...] the merits of diet exercise and weight loss.-[facility] [employer] 250 DO Work Phone: History of Present illness Narrative* Indra Haynes, BLANQUITA - 05/12/2024 10:10 AM EST Patient: Lyric [...] History: Past Medical History: Diagnosis Date Glaucoma (CMS/HCC) HSV stromal keratitis Hypertension (CMS/HCC) Pre-diabetes Recurrent corneal erosion Medications: Current Outpatient [...] given. Application of DSD post procedure. Indra Haynes DPM [facility] (narrative)* Consultation (Routine) - Authorized Specialty Diagnoses / Procedures Referred By Contac t Referred To Contact Cardiology Diagnoses Chronic atrial fibrillation (Multi) Procedures Follow Up In Cardiology Karson Lopez MD [address] [facility] [address], [address] [address] Frandy Cabrera MD [address] [facility], [address] [address] Referral ID Status Reason Start Date Expiration Date V isits Requested Visits Authorized [id number] Authorized 09/28/2023 09/27/2024 1 1 [facility] Work Phone: Summary Purpose Family History Unknown Family Member Name Dates Details Family [...] thiago father Unknown mother Unknown Advance Directives Advance Directive Response Recorded Date/ Time Advance [...] 2024 10:19am Screening mammogram for breast cancer [facility] 2023 10:19am Type 2 diabetes mellitus with hyperglyce [facility] April 20, 2024 10:19am Vitamin D deficiency April 20, 2024 10:19am CKD stage 3a, GFR 45-59 ml/min May 172024 8:41am Type 2 diabetes mellitus with hyperglyce [facility] May 17, 2024 8:41am Chief Complaint Admit Date CC Adult Risk Stratification April 192023 3:56pm Wellness April 20, 2024 10:19am Discuss BW Results May 17, 2024 8: 41am covid,nstemi June 11, 2024 1 0:40pm covid,nstemi June 12, 2024 1 1:23am covid,nstemi June 12, 2024 2 :30pm covid,nstemi June 14, 2024 8 :49am covid,nstemi June 15, 2024 7 :58am covid,nstemi June 20, 2024 1:59pm Reason for Visit Admit Date Essential (primary) hypertension Decembe r 2023 10:19am Hyperlipidemia, unspecified April 10:19am Medicare annual wellness visit, jose david nt April 20, 2024 10:19am Paroxysmal atrial fibrillation April 20, 2024 10:19am Screening mammogram for breast cancer [facility] 2023 10:19am Type 2 diabetes mellitus with hyperglyce [place] April 20, 2024 10:19am Vitamin D deficiency April 20, 2024 10:19am CKD stage 3a, GFR 45-59 ml/min May 172024 8:41am Type 2 diabetes mellitus with hyperglyce [place] May 17, 2024 8:41am 3-vessel coronary artery disease 2024 10:40pm Acute kidney injury June 11, 2024 1 0:40pm Acute kidney injury superimposed on CKD June 11, 2024 10:40pm Atrial fibrillation June 11, 2024 1 0:40pm Bradycardia June 11, 2024 1 0:40pm CKD stage 3a, GFR 45-59 ml/min June 11, 2024 10:40pm COVID-19 June 11, 2024 1 0:40pm Critical illness myopathy June 11, 2024 10:40pm Dyslipidemia June 11, 2024 1 0:40pm Elevated liver transaminase level 2024 10:40pm Elevated troponin June 11, 2024 1 0:40pm Essential hypertension June 11 10:40pm Hyperlipidemia, unspecified June 10:40pm Hypokalemia June 11, 2024 1 0:40pm Hypomagnesemia June 11, 2024 1 0:40pm Hyponatremia June 11, 2024 1 0:40pm Hypotension June 11, 2024 1 0:40pm Impaired mobility and activities of [place] living June 11, 2024 10:40pm Left ventricular systolic dysfunction Fe [id number] 10:40pm Liver failure June 11, 2024 1 0:40pm Multisystem organ failure June 11, 2024 10:40pm Non-ST elevation (NSTEMI) myocardial inf arction June 11, 2024 10:40pm Permanent atrial fibrillation June 112024 10:40pm Respiratory failure June 11, 2024 1 0:40pm Sepsis June 11, 2024 1 0:40pm Type 2 diabetes mellitus with hyperglyce [place] June 11, 2024 10:40pm UTI (urinary tract infection) June 112024 10:40pm Warfarin-induced coagulopathy June 112024 10:40pm Chief Complaint Admit Date CC Adult Risk Stratification April 192023 3:56pm Wellness April 20, 2024 10:19am Discuss BW Results May 17, 2024 8: 41am covid,nstemi June 11, 2024 1 0:40pm covid,nstemi June 12, 2024 1 1:23am covid,nstemi June 12, 2024 2 :30pm covid,nstemi June 14, 2024 8 :49am covid,nstemi June 15, 2024 7 :58am covid,nstemi June 20, 2024 1:59pm covid,nstemi June 20, 2024 2:53pm Critical Illness Myopathy June 20, 2024 5:03pm Critical Illness Myopathy June 21, 2024 9:47am Amb Documentation June 24, 2024 9:31am Reason for Visit Admit Date Essential (primary) hypertension Decee r 2023 10:19am Hyperlipidemia, unspecified April 10:19am Medicare annual wellness visit, subseque nt April 20, 2024 10:19am Paroxysmal atrial fibrillation April 20, 2024 10:19am Screening mammogram for breast cancer [facility] 2023 10:19am Type 2 diabetes mellitus with hyperglyce [facility] April 20, 2024 10:19am Vitamin D deficiency April 20, 2024 10:19am CKD stage 3a, GFR 45-59 ml/min May 172024 8:41am Type 2 diabetes mellitus with hyperglyce [place] May 17, 2024 8:41am 3-vessel coronary artery disease 2024 10:40pm Acute kidney injury June 11, 2024 1 0:40pm Acute kidney injury superimposed on CKD June 11, 2024 10:40pm Atrial fibrillation June 11, 2024 1 0:40pm Bradycardia June 11, 2024 1 0:40pm CKD stage 3a, GFR 45-59 ml/min June 11, 2024 10:40pm COVID-19 June 11, 2024 1 0:40pm Critical illness myopathy June 11, 2024 10:40pm Dyslipidemia June 11, 2024 1 0:40pm Elevated liver transaminase level 2024 10:40pm Elevated troponin June 11, 2024 1 0:40pm Essential hypertension June 11 10:40pm Hyperlipidemia, unspecified June 10:40pm Hypokalemia June 11, 2024 1 0:40pm Hypomagnesemia June 11, 2024 1 0:40pm Hyponatremia June 11, 2024 1 0:40pm Hypotension June 11, 2024 1 0:40pm Impaired mobility and activities of [place] y living June 11, 2024 10:40pm Left ventricular systolic dysfunction Fe bruary 2024 10:40pm Liver failure June 11, 2024 1 0:40pm Multisystem organ failure June 11, 2024 10:40pm Non-ST elevation (NSTEMI) myocardial inf arction June 11, 2024 10:40pm Permanent atrial fibrillation June 112024 10:40pm Respiratory failure June 11, 2024 1 0:40pm Sepsis June 11, 2024 1 0:40pm Type 2 diabetes mellitus with hyperglyce [place] June 11, 2024 10:40pm UTI (urinary tract infection) June 112024 10:40pm Warfarin-induced coagulopathy June 112024 10:40pm 3-vessel coronary artery disease 2024 5:03pm Atrial fibrillation June 20, 2024 5:03pm Chronic anticoagulation June 20 5:03pm COVID-19 June 20, 2024 5:03pm Critical illness myopathy June 20, 2024 5:03pm Dyslipidemia June 20, 2024 5:03pm Elevated liver transaminase level 2024 5:03pm Essential hypertension June 20 5:03pm Hyperlipidemia, unspecified June 5:03pm Hyponatremia June 20, 2024 5:03pm Impaired mobility and activities of [place] living June 20, 2024 5:03pm Liver failure June 20, 2024 5:03pm Multisystem organ failure June 20, 2024 5:03pm Paroxysmal atrial fibrillation June 20, 2024 5:03pm Respiratory failure June 20, 2024 5:03pm Sepsis June 20, 2024 5:03pm Type 2 diabetes mellitus with hyperglyce [place] June 20, 2024 5:03pm Additional Source Comments INFORMATION SOURCE (unrecogn ized section and content) DATE CREATED AUTHOR 08/04/2018 [facility] DATE CREATED AUTHOR AUTHOR'S ORGANIZ ATION 10/14/2019 [facility] DATE CREATED AUTHOR AUTHOR'S ORGANIZ ATION 06/16/2021 [facility] DATE CREATED AUTHOR AUTHOR'S ORGANIZ ATION 02/13/[address] [facility] DATE CREATED AUTHOR AUTHOR'S ORGANIZ ATION 02/13/2022 [employer] DATE CREATED AUTHOR AUTHOR'S ORGANIZ ATION 10/17/2022 [facility] DATE CREATED AUTHOR AUTHOR'S ORGANIZ ATION 05/22/2024 [facility] Ambulatory DATE CREATED AUTHOR AUTHOR'S ORGANIZ ATION 05/23/2024 [facility] EPIC DATE CREATED AUTHOR AUTHOR'S ORGANIZ ATION 06/23/2024 [facility] Reason for Visit (unrecogniz ed section and content) Reason Onset Date Comments Med Refill 06/15/2023 Reason Comments Follow-up 9-12m Reason Comments Follow-up Reason Comments Toenail Care Non dm nail care Reason Comments Toenail Care Non DM Nails Reason Comments Follow-up 6 month Specialty Diagnoses / Procedures Referred By Contac t Referred To Contact Cardiology Diagnoses Chronic atrial fibrillation (Multi) Procedures Follow Up In Cardiology Karson Lopez MD Ibrahim, Hassan M, MD [address] [place] [id number] Phone: tel: fax: Referral ID Status Reason Start Date Expiration Date V isits Requested Visits Authorized [id number] Authorized 09/28/2023 09/27/2024 1 1 Care Teams (unrecognized sec tion and content) [facility] Teacher Relationship Specialty Start Date End Date Felipe Johnson MD [address] [place] [address] PCP - General Family Medicine 11/12/22 [facility] Teacher Relationship Specialty Start Date End Date Felipe Johnson MD [address] [place] [address] PCP - General 08/18/18 [facility] Teacher Relationship Specialty Start Date End Date Felipe Johnson MD [address] [place] [facility] [phone] PCP - General Family Medicine 02/16/24 [facility] Teacher Relationship Specialty Start Date End Date Felipe Johnson MD [address] [place] [facility] [address] PCP - General Family Medicine 02/16/24 [facility] Teacher Relationship Specialty Start Date End Date Felipe Johnson MD PCP - General Family Medicine 11/12/22 [facility] Teacher Relationship Specialty Start Date End Date Felipe Johnson MD PCP - General Family Medicine 11/12/22 [facility] Teacher Relationship Specialty Start Date End Date Felipe Johnson MD PCP - General Family Medicine 11/12/22 [facility] Teacher Relationship Specialty Start Date End Date Felipe Johnson MD PCP - General Family Medicine 11/12/22 [facility] Teacher Relationship Specialty Start Date End Date Felipe Johnson MD [address] [place] [facility] [phone] PCP - General Family Medicine 02/16/24 [facility] Teacher Relationship Specialty Start Date End Date Felipe Johnson MD [address] [place] [facility] [address] PCP - General Family Medicine 02/16/24 [facility] Teacher Relationship Specialty Start Date End Date Felipe Johnson MD [address] [facility] [place] [address] PCP - General 08/18/18 Karson Lopez MD Retired From Practice [facility] Attributed Provider 08/10/23 [facility] Teacher Relationship Specialty Start Date End Date Felipe Johnson MD [address] [facility] [place] [phone] PCP - General Family Medicine 02/16/24 Team [...] May 17, 2024 End: May 17, 2024 Team Status: Active Member Role Status Dates Felipe Johnson MD Primary Care Provider Active Start: May 24, 2024 [facility] Attending Provider Active Start: May 24, 2024 Team Status: Active Member Role Status Dates Felipe Johnson MD Primary Care Provider Active Start: June 11, 2024 Elena De La Garza MD Attending Provider Active Sta rt: June 11, 2024 Team Status: Inactive Member Role Status Dates Felipe Johnson MD Primary Care Provider Active Start: June 11, 2024 End: June 20, 2024 Thang Ruth MD Admit Provider Active S tart: June 11, 2024 End: June 20, 2024 Joselo Watson MD Other Provider Active Start : June 11, 2024 End: June 20, 2024 Franca Velázquez MD Other Provider Active Start: F ebruary 2024 End: June 20, 2024 Sebastien Cardenas MD Attending Provider Active St art: June 11, 2024 End: June 20, 2024 Destinee Nicholson MD Other Provider Active Start: Fe bruary 2024 End: June 20, 2024 Stevie Escobar MD Other Provider Active Start: F ebruary 2024 End: June 20, 2024 Theresa Campos APRN Other Provider Active St art: June 11, 2024 End: June 20, 2024 Jameel Miles Jr, DO Other Provider Active S tart: June 11, 2024 End: June 20, 2024 David Castellanos MD Other Provider Active Start: June 11, 2024 End: June 20, 2024 Team Status: Active Member Role Status Dates Felipe Johnson MD Primary Care Provider Active Start: June 12, 2024 Dedrick Bella DO Other Provider Active Start: June 12, 2024 Thang Ruth MD Admit Provider Active S tart: June 12, 2024 Lyndsay Lucero RN Other Provider Active Star t: June 12, 2024 Yvan Aranda MD Other Provider Active Start: ebruary 2024 Juan Bland MD Other Provider Active Start: June 12, 2024 Twila Montoya MD Other Provider Active Start: June 12, 2024 Kris Everett MD Attending Provider, Other Provider Active Start: June 12, 2024 Team Status: Active Member Role Status Dates Felipe Johnson MD Primary Care Provider Active Start: June 12, 2024 Dedrick Bella DO Other Provider Active Start: June 12, 2024 Thang Ruth MD Admit Provider Active S tart: June 12, 2024 Lyndsay Lucero RN Other Provider Active Star t: June 12, 2024 Yvan Aranda MD Other Provider Active Start: ebruary 2024 Juan Bland MD Other Provider Active Start: June 12, 2024 Twila Montoya MD Attending Provider, Other Provider Active Start: June 12, 2024 Kris Everett MD Other Provider Active Start: F ebruary 2024 Team Status: Active Member Role Status Dates Felipe Johnson MD Primary Care Provider Active Start: June 14, 2024 Thang Ruth MD Admit Provider Active S tart: June 14, 2024 Kris Everett MD Other Provider Active Start: ebruary 2024 Lyndsay Lucero RN Other Provider Active Star t: June 14, 2024 Jony Rush DO Other Provider Active Start : June 14, 2024 Frandy Cabrera MD Other Provider Active Start: June 14, 2024 Karson Lopez MD Other Provider Active Start: June 14, 2024 Enrico Millan MD Other Provider Active St art: June 14, 2024 Sarthak Renner MD Other Provider Active Start: June 14, 2024 Jennifer Courtney APRN Other Provider Active Start : June 14, 2024 Adele Jones MD Other Provider Active Start: ebruary 2024 Suha Jayla Viramontes MD Other Provider Active Start: June 14, 2024 Felipe Kendrick MD Other Provider Active Start: ebruary 2024 Mahnaz Ordaz [facility]- Other Provider Active Sta rt: June 14, 2024 Jaron Hicks MD Other Provider Active Start: June 14, 2024 Franca Velázquez MD Other Provider Active Start: ebruary 2024 Elvis Philip MD Attending Provider Active Start : June 14, 2024 Team Status: Active Member Role Status Felipe Johnson MD Primary Care Provider Active Start: June 15, 2024 Thang Ruth MD Admit Provider Active S tart: June 15, 2024 Kris Everett MD Other Provider Active Start: ebruary 2024 Lyndsay Lucero RN Other Provider Active Star t: June 15, 2024 Jony Rush DO Other Provider Active Start : June 15, 2024 Frandy Cabrera MD Other Provider Active Start: June 15, 2024 Karson Lopez MD Other Provider Active Start: June 15, 2024 Enrico Millan MD Other Provider Active St art: June 15, 2024 Sarthak Renner MD Other Provider Active Start: June 15, 2024 Jennifer Courtney APRN Other Provider Active Start : June 15, 2024 Adele Jones MD Other Provider Active Start: ebary 2024 Suha Viramontes MD Other Provider Active Start: June 15, 2024 Felipe Kendrick MD Other Provider Active Start: ebary 2024 Mahnaz Ordaz , IRRIGATIONIST-BC Other Provider Active Sta rt: June 15, 2024 Jaron Hicks MD Other Provider Active Start: June 15, 2024 Franca Velázquez MD Other Provider Active Start: eb2024 Joselo Watson MD Attending Provider, Other Provider Active Start: June 15, 2024 Team Status: Active Member Role Status Dates Felipe Johnson MD Primary Care Provider Active Start: June 20, 2024 Thang Ruth MD Admit Provider Active S tart: June 20, 2024 Lyndsay Lucero RN Other Provider Active Star t: June 20, 2024 Jony Rush DO Other Provider Active Start : June 20, 2024 Frandy Cabrera MD Other Provider Active Start: June 20, 2024 Karson Lopez MD Other Provider Active Start: June 20, 2024 Enrico Millan MD Other Provider Active St art: June 20, 2024 Sarthak Renner MD Other Provider Active Start: June 20, 2024 Jennifer Courtney APRN Other Provider Active Start : June 20, 2024 Adele Jones MD Other Provider Active Start: 2024 Suha Viramontes MD Other Provider Active Start: June 20, 2024 Felipe Kendrick MD Other Provider Active Start: eb2024 Mahnaz Ordaz , IRRIGATIONIST-BC Other Provider Active Sta rt: June 20, 2024 Joselo Watson MD Other Provider Active Start : June 20, 2024 Franca Velázquez MD Other Provider Active Start: 2024 Sebastien Cardenas MD Other Provider Active Start: June 20, 2024 Destinee Nicholson MD Other Provider Active Start: 2024 Stevie Escobar MD Other Provider Active Start: eb2024 Theresa Campos , FERTILIZER SUPERVISOR Other Provider Active St art: June 20, 2024 Jameel Miles Jr, DO Other Provider Active S tart: June 20, 2024 David Castellanos MD Other Provider Active Start: June 20, 2024 Reilly Chanel MD Attending Provider Active Start: June 20, 2024 Team Status: Active Member Role Status Dates Felipe Johnson MD Primary Care Provider Active Start: June 12, 2024 Dedrick Bella DO Other Provider Active Start: June 12, 2024 Thang Ruth MD Admit Provider Active S tart: June 12, 2024 Lyndsay Lucero RN Other Provider Active Star t: June 12, 2024 Yvan Aranda MD Other Provider Active Start: 2024 Juan Bland MD Other Provider Active Start: June 12, 2024 Twila Montoya MD Other Provider Active Start: June 12, 2024 Kris Everett MD Attending Provider, Other Provider Active Start: June 12, 2024 Reilly Chanel MD Active Start: June 12, 2024 Team Status: Active Member Role Status Dates Felipe Johnson MD Primary Care Provider Active Start: June 20, 2024 Thang Ruth MD Admit Provider Active S tart: June 20, 2024 Joselo Watson MD Other Provider Active Start : June 20, 2024 Franca Velázquez MD Other Provider Active Start: 2024 Sebastien Cardenas MD Other Provider Active Start: June 20, 2024 Destinee Nicholson MD Other Provider Active Start: 2024 Stevie Escobar MD Other Provider Active Start: 2024 Theresa Campos , FERTILIZER SUPERVISOR Other Provider Active St art: June 20, 2024 Jameel Miles Jr, DO Other Provider Active S tart: June 20, 2024 David Castellanos MD Attending Pr ovider, Other Provider Active Start: June 20, 2024 Team Status: Inactive Member Role Status Dates Felpie Johnson MD Primary Care Provider Active Start: June 20, 2024 End: June 24, 2024 David Castellanos MD Admit Provid er, Attending Provider Active Start: June 20, 2024 End: June 24, 2024 Beata Nobles , JAMES Other Provider Active Star t: June 20, 2024 End: June 24, 2024 Barbara Umana , JAMES Other Provider Active Start : June 20, 2024 End: June 24, 2024 Hodan Salgado RN Other Provider Active Star t: June 20, 2024 End: June 24, 2024 Brandi Acevedo RN Other Provider Active Start: 2024 End: June 24, 2024 Suzie Escoto RN Other Provider Active Start: 2024 End: June 24, 2024 Harris Saleh MD Other Provider Active Start: June 20, 2024 End: June 24, 2024 Byron Anderson DO Other Provider Active Start : June 20, 2024 End: June 24, 2024 Parminder Contreras MD Other Provider Active Start : June 20, 2024 End: June 24, 2024 Herber Razo DO Other Provider Active Start: June 20, 2024 End: June 24, 2024 Sebastien Cardenas MD Other Provider Active Start: June 20, 2024 End: June 24, 2024 Daniela Harman MD Other Provider Active Start : June 20, 2024 End: June 24, 2024 Dawson Hernandez DO Other Provider Active St art: June 20, 2024 End: June 24, 2024 Newton Galeana MD Other Provider Active Start: 2024 End: June 24, 2024 Zaira Waggoner APRN Other Provider Active Start: June 20, 2024 End: June 24, 2024 Jaron Hicks MD Other Provider Active Start: June 20, 2024 End: June 24, 2024 Jaret Castro MD Other Provider Active Start: 2024 End: June 24, 2024 Venancio Contreras MD Other Provider Active Start: June 20, 2024 End: June 24, 2024 Valeriano Madera MD Other Provider Active Start: June 20, 2024 End: June 24, 2024 Dawson Hanley DO Other Provider Active Start: June 20, 2024 End: June 24, 2024 John Vega MD Other Provider Active Start: 2024 End: June 24, 2024 Jesse Tang MD Other Provider Active Start: Jun End: June 24, 2024 Maria E Dawn NP-C Other Provider Active St art: June 20, 2024 End: June 24, 2024 Joya Johnson APRN Other Provider Active Star t: June 20, 2024 End: June 24, 2024 Jason Tomlin MD Other Provider Active Start: June 20, 2024 End: June 24, 2024 Greg Blackman MD Other Provider Active Start: 2024 End: June 24, 2024 Garett Davis MD Other Provider Active Start: Jun End: June 24, 2024 Antonette Knox MD Other Provider Active Star t: June 20, 2024 End: June 24, 2024 Guillermo Reyse MD Other Provider Active Start: 2024 End: June 24, 2024 Lizeth Tinoco DO Other Provider Active Start: 2024 End: June 24, 2024 Kenrick Mata DO Other Provider Active Start : June 20, 2024 End: June 24, 2024 Twila Canales APRN Other Provider Active Start: June 20, 2024 End: June 24, 2024 Dedrick Bella DO Other Provider Active Start: June 20, 2024 End: June 24, 2024 Maura Calix MD Other Provider Active Sta rt: June 20, 2024 End: June 24, 2024 Raina Courtney APRN Other Provider Active Start : June 20, 2024 End: June 24, 2024 Dorina Aiken APRN Other Provider Active St art: June 20, 2024 End: June 24, 2024 Jackelin Grimm MD Other Provider Active Start: 2024 End: June 24, 2024 Thang Ruth MD Other Provider Active S tart: June 20, 2024 End: June 24, 2024 Evan Wiley DO Other Provider Active Star t: June 20, 2024 End: June 24, 2024 Rita Silver DO Other Provider Active Start: June 20, 2024 End: June 24, 2024 Tony Davis MD Other Provider Active Start: June 20, 2024 End: June 24, 2024 Karla Duran MD Other Provider Active Start: June End: June 24, 2024 Madiha Thornton APRN Other Provider Active Star t: June 20, 2024 End: June 24, 2024 Cristal Pfeiffer MD Other Provider Active Start: 2024 End: June 24, 2024 Chuy Schroeder MD Other Provider Active Start: 2024 End: June 24, 2024 Stevie Almazan MD Other Provider Active Start: June 20, 2024 End: June 24, 2024 Newton Zarate MD Other Provider Active Start : June 20, 2024 End: June 24, 2024 Nain Hall MD Other Provider Active Start: 2024 End: June 24, 2024 Alba Barahona APRN Other Provider Active Sta rt: June 20, 2024 End: June 24, 2024 Gianfranco Crowe APRN Other Provider Active Start: June End: June 24, 2024 Lizet Mclean RN Other Provider Active Start: 2024 End: June 24, 2024 Team Status: Active Member Role Status Dates Felipe Johnson MD Primary Care Provider Active Start: June 21, 2024 David Castellanos MD Admit Provid er, Attending Provider, Other Provider Active Start: June 21, 2024 Beata Nobles , JAMES Other Provider Active Star t: June 21, 2024 Barbara Umana , JAMES Other Provider Active Start : June 21, 2024 Hodan Salgado RN Other Provider Active Star t: June 21, 2024 Brandi Acevedo RN Other Provider Active Start: 2024 Suzie Escoto RN Other Provider Active Start: 2024 Harris Saleh MD Other Provider Active Start: June 21, 2024 Byron Anderson , Other Provider Active Start : June 21, 2024 Parminder Contreras MD Other Provider Active Start : June 21, 2024 Herber Razo , Other Provider Active Start: June 21, 2024 Sebastien Cardenas MD Other Provider Active Start: June 21, 2024 Daniela Harman MD Other Provider Active Start : June 21, 2024 Dawson Hernandez DO Other Provider Active St art: June 21, 2024 Newton Galeana MD Other Provider Active Start: ebruary 2024 Zaira Waggoner APRN Other Provider Active Start: June 21, 2024 Jaron Hicks MD Other Provider Active Start: June 21, 2024 Jaret Castro MD Other Provider Active Start: eb2024 Venancio Contreras MD Other Provider Active Start: June 21, 2024 Valeriano Madera MD Other Provider Active Start: June 21, 2024 Dawson Hanley DO Other Provider Active Start: June 21, 2024 John Vega MD Other Provider Active Start: 2024 Jesse Tang MD Other Provider Active Start: Jun Maria E Dawn NP-C Other Provider Active St art: June 21, 2024 Joya Johnson APRN Other Provider Active Star t: June 21, 2024 Jason Tomlin MD Other Provider Active Start: June 21, 2024 Greg Blackman MD Other Provider Active Start: 2024 Garett Davis MD Other Provider Active Start: Jun Antonette Knox MD Other Provider Active Star t: June 21, 2024 Guillermo Reyes MD Other Provider Active Start: eb2024 Lizeth Tinoco DO Other Provider Active Start: 2024 Kenrick Mata , Other Provider Active Start : June 21, 2024 Twila Canales APRN Other Provider Active Start: June 21, 2024 Dedrick Bella DO Other Provider Active Start: June 21, 2024 Maura Calix MD Other Provider Active Sta rt: June 21, 2024 Raina Courtney APRN Other Provider Active Start : June 21, 2024 Dorina Aiken APRN Other Provider Active St art: June 21, 2024 Jackelin Grimm MD Other Provider Active Start: [place] 2024 Thang Ruth MD Other Provider Active S tart: June 21, 2024 Evan Wiley , DO Other Provider Active Star t: June 21, 2024 Rita Silver DO Other Provider Active Start: June 21, 2024 Tony Davis MD Other Provider Active Start: June 21, 2024 Karla Duran MD Other Provider Active Start: June Madiha Thornton APRN Other Provider Active Star t: June 21, 2024 Cristal Pfeiffer MD Other Provider Active Start: [place] 2024 Chuy Schroeder MD Other Provider Active Start: [facility] 2024 Stevie Almazan MD Other Provider Active Start: June 21, 2024 Newton Zarate MD Other Provider Active Start : June 21, 2024 Nain Hall MD Other Provider Active Start: [place] 2024 Alba Barahona APRN Other Provider Active Sta rt: June 21, 2024 Gianfranco Crowe APRN Other Provider Active Start: June Lizet Mclean RN Other Provider Active Start: [place] 2024 Team Status: Active Member Role Status Dates Felipe Johnson MD Primary Care Provider Active Start: June 24, 2024 Aylin Temple CMA Attending Provider Active Start: June 24, 2024 Goals (unrecognized section and content) Goals [...] BE BASED ON THE PRIMARY CLINICAL RECORDS. [facility]. provides no warranty or guarantee of the accuracy or completeness of information in this document.
[2024-06-25 12:14] LABS: Alanine Aminotransferase 150 U/L (14-59); Albumin Globulin Ratio 0.9; Albumin Level 3.1 g/dL (3.4-5.0); Alkaline Phosphatase 152 U/L (46-116); Anion Gap 14.4; Aspartate Amino Transferase 41 U/L (15-37); BUN Creatinine Ratio 13.3; Bilirubin Total 1.2 mg/dL (0.2-1.0); Calcium 9.3 mg/dL (8.5-10.1); Carbon Dioxide 26.2 mmol/L (21.0-32.0); Chloride 98 mmol/L (98-107); Estimated GFR (African America 43 (>=60 mL/min/1.73m^2); Estimated GFR (Non-African Ame 35 (>=60 mL/min/1.73m^2); Globulin 3.3 g/dL; Glucose 142 mg/dL (74-106); Potassium 4.6 mmol/L (3.5-5.1); Sodium 134 mmol/L (136-145); Total Protein 6.4 g/dL (6.4-8.2)
== END 2024-06-25 11:30 | disposition home or self-care (01) ==
LOC: LAB 11:30
PROVIDERS: PCP Family Medicine; Visit Provider Physical Medicine & Rehabilitation
DX: K72.90 Hepatic failure, unspecified without coma (principal)
CPT/HCPCS: 36415; 80053

== ENCOUNTER 2024-07-09 06:59 | Outpatient (RCR) | payer MEDICARE, OTHER, SELFPAY | END 2024-08-05 10:00 | disposition home or self-care (01) | LOC: MM 06:59 | PROVIDERS: PCP Family Medicine; Visit Provider Internal Medicine | DX: Z51.81 Encounter for therapeutic drug level monitoring (principal); Z79.01 Long term (current) use of anticoagulants; I48.20 Chronic atrial fibrillation, unspecified | CPT/HCPCS: 85610; G0463 ==

== ENCOUNTER 2024-08-09 05:23 | Outpatient (RCR) | payer MEDICARE, OTHER, SELFPAY | END 2024-09-07 15:32 | disposition home or self-care (01) | LOC: MM 05:23 | PROVIDERS: PCP Family Medicine; Visit Provider Internal Medicine | DX: Z51.81 Encounter for therapeutic drug level monitoring (principal); Z79.01 Long term (current) use of anticoagulants; I48.20 Chronic atrial fibrillation, unspecified | CPT/HCPCS: 85610; G0463 ==

== ENCOUNTER 2024-08-15 07:24 | Outpatient (OUT) | payer MEDICARE, OTHER, SELFPAY ==
[2024-08-15 08:13] LABS: Alanine Aminotransferase 16 U/L (14-59); Aspartate Amino Transferase 18 U/L (15-37); Chol HDL Ratio 3.2; Cholesterol 137 mg/dL (<=200); HDL Cholesterol 43 mg/dL (40-60); LDL Cholesterol Calculated 70.2 mg/dL; Triglycerides 119 mg/dL (<=150); VLDL CHOLESTEROL 23.8 mg/dL
== END 2024-08-15 07:25 | disposition home or self-care (01) ==
LOC: LAB 07:30
PROVIDERS: PCP Family Medicine; Visit Provider Internal Medicine Cardiovascular Disease
DX: E78.2 Mixed hyperlipidemia (principal)
CPT/HCPCS: 36415; 80061; 84450; 84460

== ENCOUNTER 2024-09-08 04:49 | Outpatient (RCR) | payer MEDICARE, OTHER, SELFPAY | END 2024-10-07 15:16 | disposition home or self-care (01) | LOC: MM 04:49 | PROVIDERS: PCP Family Medicine; Visit Provider Internal Medicine | DX: Z51.81 Encounter for therapeutic drug level monitoring (principal); Z79.01 Long term (current) use of anticoagulants; I48.20 Chronic atrial fibrillation, unspecified | CPT/HCPCS: 85610; G0463 ==

== ENCOUNTER 2024-10-09 08:04 | Outpatient (RCR) | payer MEDICARE, OTHER, SELFPAY | END 2024-11-03 14:54 | disposition home or self-care (01) | LOC: MM 08:04 | PROVIDERS: PCP Family Medicine; Visit Provider Internal Medicine | DX: Z51.81 Encounter for therapeutic drug level monitoring (principal); Z79.01 Long term (current) use of anticoagulants; I48.20 Chronic atrial fibrillation, unspecified | CPT/HCPCS: 85610; G0463 ==

== ENCOUNTER 2024-11-08 02:33 | Outpatient (RCR) | payer MEDICARE, OTHER, SELFPAY | END 2024-12-08 16:41 | disposition home or self-care (01) | LOC: MM 02:33 | PROVIDERS: PCP Family Medicine; Visit Provider Internal Medicine | DX: Z51.81 Encounter for therapeutic drug level monitoring (principal); Z79.01 Long term (current) use of anticoagulants; I48.20 Chronic atrial fibrillation, unspecified | CPT/HCPCS: 85610; G0463 ==

== ENCOUNTER 2024-12-09 00:26 | Outpatient (RCR) | payer MEDICARE, OTHER, SELFPAY | END 2025-01-05 12:57 | disposition home or self-care (01) | LOC: MM 00:26 | PROVIDERS: PCP Family Medicine; Visit Provider Internal Medicine | DX: Z51.81 Encounter for therapeutic drug level monitoring (principal); Z79.01 Long term (current) use of anticoagulants; I48.20 Chronic atrial fibrillation, unspecified | CPT/HCPCS: 85610; G0463 ==

== ENCOUNTER 2025-01-09 03:00 | Outpatient (RCR) | payer MEDICARE, OTHER, SELFPAY | END 2025-02-07 15:21 | disposition home or self-care (01) | LOC: MM 03:00 | PROVIDERS: PCP Family Medicine; Visit Provider Internal Medicine | DX: Z51.81 Encounter for therapeutic drug level monitoring (principal); Z79.01 Long term (current) use of anticoagulants; I48.20 Chronic atrial fibrillation, unspecified | CPT/HCPCS: 85610; G0463 ==

== ENCOUNTER 2025-01-12 07:08 | Outpatient (RCR) | payer MEDICARE, OTHER, SELFPAY ==
--- NOTE | 2024-08-24 15:12 | CR1_ITS ---
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 This may be very beneficial with stated history of CHF with EF 35%. Electronically Signed On 09-05-2024 16:19:10 EDT by Artur Hoffman
--- NOTE | 2024-09-15 08:49 | CR1_ITS ---
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 Electronically Signed On 09-19-2024 7:51:56 EDT by Artur Hoffman
--- NOTE | 2024-10-21 07:45 | CR1_ITS ---
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 Electronically Signed On 10-24-2024 18:32:52 EDT by Artur Hoffman
--- NOTE | 2024-11-16 09:32 | CR1_ITS ---
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 Electronically Signed On 11-16-2024 10:15:31 EDT by Artur Hoffman
--- NOTE | 2024-12-19 07:23 | CR1_ITS ---
The 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 Order Number: [id number] Reading MD: Christin Alex Interpretive Statements Session Date: Electronically Signed On 01-06-2025 13:27:48 EDT by Christin Alex
--- NOTE | 2025-01-18 09:57 | CR1_ITS ---
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 Order Number: [id number] Sarah MD: AMILCAR DILL M.D. Interpretive Statements Patient may continue cardiac rehab as outlined in the treatment plan. Electronically Signed On 01-25-2025 18:01:13 EDT by AMILCAR DILL M.D.
--- NOTE | 2025-02-23 14:47 | CR1_ITS ---
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 Order Number: [id number] Sarah MD: AMILCAR DILL M.D. Interpretive Statements Electronically Signed On 02-23-2025 19:56:47 EDT by AMILCAR DILL M.D.
== END 2025-02-23 10:47 | disposition home or self-care (01) ==
LOC: CR 07:08
PROVIDERS: PCP Family Medicine; Visit Provider Internal Medicine Cardiovascular Disease
DX: I48.21 Permanent atrial fibrillation (principal); E78.2 Mixed hyperlipidemia; I25.10 Atherosclerotic heart disease of native coronary artery without angina pectoris
CPT/HCPCS: 93798

== ENCOUNTER 2025-02-08 05:16 | Outpatient (RCR) | payer MEDICARE, OTHER, SELFPAY | END 2025-03-10 23:59 | disposition home or self-care (01) | LOC: MM 05:16 | PROVIDERS: PCP Family Medicine; Visit Provider Internal Medicine | DX: Z51.81 Encounter for therapeutic drug level monitoring (principal); Z79.01 Long term (current) use of anticoagulants; I48.20 Chronic atrial fibrillation, unspecified | CPT/HCPCS: 85610; G0463 ==

== ENCOUNTER 2025-03-11 | Outpatient (RCR) | payer MEDICARE, OTHER, SELFPAY | END 2025-04-09 23:59 | disposition home or self-care (01) | LOC: MM | PROVIDERS: PCP Family Medicine; Visit Provider Internal Medicine | DX: Z51.81 Encounter for therapeutic drug level monitoring (principal); Z79.01 Long term (current) use of anticoagulants; I48.20 Chronic atrial fibrillation, unspecified | CPT/HCPCS: 85610; G0463 ==

== ENCOUNTER 2025-04-10 11:50 | Outpatient (RCR) | payer MEDICARE, OTHER, SELFPAY | END 2025-05-10 13:02 | disposition home or self-care (01) | LOC: MM 11:50 | PROVIDERS: PCP Family Medicine; Visit Provider Internal Medicine | DX: Z51.81 Encounter for therapeutic drug level monitoring (principal); Z79.01 Long term (current) use of anticoagulants; I48.20 Chronic atrial fibrillation, unspecified | CPT/HCPCS: 85610; G0463 ==